=== PATIENT | female | born 1940 | race Caucasian/White ===

== ENCOUNTER 2019-01-11 03:23 | Observation (INO) | payer MEDICARE, OTHER ==
--- NOTE | 2019-01-11 03:50 | ED ---
Female Urogenital HPI - General Chief complaint: Urogenital Stated complaint: Poss UTI Time Seen by Provider: 01/11/19 03:49 Source: patient, family Mode of arrival: wheelchair - History of Present Illness Initial comments: Astrid is a pleasant 78-year-old female presents to the emergency department this morning for evaluation of dysuria, urinary frequency, diarrhea and fever. Patient reports that throughout the day yesterday she had multiple loose stools, she also reports urinary frequency hesitancy and dysuria. Patient reports is similar to previous UTI. Patient also noted that she feels like she has a fever. Patient does have some Parkinson's and some memory impairment she can't recall if she took any antipyretics throughout the day yesterday but hasn't had any throughout the night tonight. Patient reports she feels nauseated but isn't having any vomiting. MD Complaint: dysuria -: days(s) Radiation: suprapubic Severity: mild, moderate Quality: burning Consistency: constant Worsens with: urination Patient : No Associated Symptoms: nausea/vomiting, fever/chills, dysuria - Related Data Home Medications Medication Instructions Recorded Confirmed Carbidopa-Levodopa ER 25-100Mg 1 tab PO QID 01/11/19 01/11/19 [Sinemet CR 25-100 mg] Omeprazole [PriLOSEC] 20 mg PO BID 01/11/19 01/11/19 Oxybutynin Chloride 5 mg PO HS 01/11/19 01/11/19 Warfarin Sodium 2.5 mg PO DIRECTED 01/11/19 01/11/19 Warfarin Sodium 2.5 mg PO DIRECTED 01/11/19 01/11/19 Allergies Allergy/AdvReac Type Severity Reaction Status Date / Time Penicillins Allergy Anaphylaxis Verified 01/11/19 03:40 Review of Systems ROS Statement: Those systems with pertinent positive or pertinent negative responses have been documented in the HPI. ROS Other: All systems not noted in ROS Statement are negative. Past Medical History Past Medical History: Asthma, Deep Vein Thrombosis (DVT), Hypertension, Osteoarthritis (OA) History of Any Multi-Drug Resistant Organisms: None Reported Past Surgical History: Cholecystectomy, Hysterectomy, Tubal Ligation Past Psychological History: No Psychological Hx Reported Smoking Status: Never smoker Past Alcohol Use History: None Reported Past Drug Use History: None Reported General Exam - General Exam Comments Initial Comments: Physical Exam GENERAL: Patient is well-developed and well-nourished. Patient is nontoxic and well-hydrated and is in no distress. HENT: Normocephalic, Atraumatic. EYES: PERRL, EOMI PULMONARY: Unlabored respirations CARDIOVASCULAR: RRR ABDOMEN: Suprapubic tenderness SKIN: Warm to touch : Deferred NEUROLOGIC: Alert and oriented to person and place, confused on date, confused about events of the day MUSCULOSKELETAL: Lower extremity edema, non-pitting PSYCHIATRIC: Pleasantly confused Course Vital Signs 01/11/19 03:31 Temperature 100.5 F H Pulse Rate 83 Respiratory 18 Rate Blood Pressure 138/71 O2 Sat by Pulse 93 L Oximetry Medical Decision Making - Medical Decision Making The patient was seen and evaluated history was obtained from the patient and daughter bedside Elderly female with lower urinary tract symptoms and fever, labs and IV fluids as well as antipyretics were ordered UA consistent with urinary tract infection CBC with mild leukocytosis no other significant abnormalities Patient was assisted to bedside commode however was very weak and was returned to bed and placed on a bedpan. Patient continued complaining of urge to urinate but was too weak to inability to bedside commode. Given the patient's weakness, elderly debilitated state and urinary tract infection I don't feel she is safe for discharge home. Patient will be placed in observation received IV fluids and reevaluation until she has strong enough to be discharged home. - Lab Data Result diagrams: 01/11/19 04:50 01/11/19 04:50 Lab Results 01/11/19 01/11/19 01/11/19 Range/Units 04:03 04:50 04:50 WBC 8.3 (3.8-10.6) k/uL RBC 4.31 (3.80-5.40) m/uL Hgb 12.5 (11.4-16.0) gm/dL Hct 37.0 (34.0-46.0) % MCV 85.8 (80.0-100.0) fL MCH 29.0 (25.0-35.0) pg MCHC 33.9 (31.0-37.0) g/dL RDW 14.4 (11.5-15.5) % Plt Count 184 (150-450) k/uL Neutrophils % 78 % Lymphocytes % 10 % Monocytes % 8 % Eosinophils % 1 % Basophils % 0 % Neutrophils # 6.4 (1.3-7.7) k/uL Lymphocytes # 0.9 L (1.0-4.8) k/uL Monocytes # 0.6 (0-1.0) k/uL Eosinophils # 0.1 (0-0.7) k/uL Basophils # 0.0 (0-0.2) k/uL Sodium 133 L (137-145) mmol/L Potassium 4.0 (3.5-5.1) mmol/L Chloride 101 (98-107) mmol/L Carbon Dioxide 22 (22-30) mmol/L Anion Gap 10 mmol/L BUN 15 (7-17) mg/dL Creatinine 0.59 (0.52-1.04) mg/dL Est GFR (CKD-EPI)AfAm >90 (>60 ml/min/1.73 sqM) Est GFR (CKD-EPI)NonAf 88 (>60 ml/min/1.73 sqM) Glucose 112 H (74-99) mg/dL Plasma Lactic Acid Abdiaziz (0.7-2.0) mmol/L Calcium 8.2 L (8.4-10.2) mg/dL Magnesium 1.9 (1.6-2.3) mg/dL Total Bilirubin 1.1 (0.2-1.3) mg/dL AST 22 (14-36) U/L ALT 14 (9-52) U/L Alkaline Phosphatase 57 (38-126) U/L Total Protein 6.6 (6.3-8.2) g/dL Albumin 3.8 (3.5-5.0) g/dL Urine Color Yellow Urine Appearance Cloudy H (Clear) Urine pH 6.0 (5.0-8.0) Ur Specific [place] 1.014 (1.001-1.035) Urine Protein 1+ H (Negative) Urine Glucose (UA) Negative (Negative) Urine Ketones Negative (Negative) Urine Blood Small H (Negative) Urine Nitrite Positive H (Negative) Urine Bilirubin Negative (Negative) Urine Urobilinogen <2.0 (<2.0) mg/dL Ur Leukocyte Esterase Large H (Negative) Urine RBC 13 H (0-5) /hpf Urine WBC >182 H (0-5) /hpf Urine WBC Clumps Many H (None) /hpf Ur Squamous Epith Cells 3 (0-4) /hpf Urine Bacteria Many H (None) /hpf Urine Mucus Rare H (None) /hpf 01/11/19 Range/Units 04:50 WBC (3.8-10.6) k/uL RBC (3.80-5.40) m/uL Hgb (11.4-16.0) gm/dL Hct (34.0-46.0) % MCV (80.0-100.0) fL MCH (25.0-35.0) pg MCHC (31.0-37.0) g/dL RDW (11.5-15.5) % Plt Count (150-450) k/uL Neutrophils % % Lymphocytes % % Monocytes % % Eosinophils % % Basophils % % Neutrophils # (1.3-7.7) k/uL Lymphocytes # (1.0-4.8) k/uL Monocytes # (0-1.0) k/uL Eosinophils # (0-0.7) k/uL Basophils # (0-0.2) k/uL Sodium (137-145) mmol/L Potassium (3.5-5.1) mmol/L Chloride (98-107) mmol/L Carbon Dioxide (22-30) mmol/L Anion Gap mmol/L BUN (7-17) mg/dL Creatinine (0.52-1.04) mg/dL Est GFR (CKD-EPI)AfAm (>60 ml/min/1.73 sqM) Est GFR (CKD-EPI)NonAf (>60 ml/min/1.73 sqM) Glucose (74-99) mg/dL Plasma Lactic Acid Abdiaziz 0.8 (0.7-2.0) mmol/L Calcium (8.4-10.2) mg/dL Magnesium (1.6-2.3) mg/dL Total Bilirubin (0.2-1.3) mg/dL AST (14-36) U/L ALT (9-52) U/L Alkaline Phosphatase (38-126) U/L Total Protein (6.3-8.2) g/dL Albumin (3.5-5.0) g/dL Urine Color Urine Appearance (Clear) Urine pH (5.0-8.0) Ur Specific [place] (1.001-1.035) Urine Protein (Negative) Urine Glucose (UA) (Negative) Urine Ketones (Negative) Urine Blood (Negative) Urine Nitrite (Negative) Urine Bilirubin (Negative) Urine Urobilinogen (<2.0) mg/dL Ur Leukocyte Esterase (Negative) Urine RBC (0-5) /hpf Urine WBC (0-5) /hpf Urine WBC Clumps (None) /hpf Ur Squamous Epith Cells (0-4) /hpf Urine Bacteria (None) /hpf Urine Mucus (None) /hpf Disposition Clinical Impression: Urinary tract infection, Weakness Disposition: ADMITTED IP TO THIS HOSP Condition: Stable Referrals: Angel Benitez DO [Primary Care Provider] - 1-2 days
[2019-01-11] MEDS ORDERED: ACETAMINOPHEN TAB 500 MG TAB PO STA (04:14)
[2019-01-11 04:25] LABS: Appearance,Urine Cloudy (Clear); Bacteria,Urine Many /hpf; Bilirubin,Urine Negative (Negative); Blood,Urine Small (Negative); Color,Urine Yellow; Glucose,Urine (UA) Negative (Negative); Ketones,Urine Negative (Negative); Leukocyte Esterase,Urine Large (Negative); Mucus,Urine Rare /hpf; Nitrite,Urine Positive (Negative); Protein,Urine 1+ (Negative); RBC,Urine 13 /hpf (0-5); Specific Gravity,Urine 1.014 (1.001-1.035); Squamous Epithelial Cell,Urine 3 /hpf (0-4); Urobilinogen,Urine <2.0 mg/dL (<2.0)
[2019-01-11] MEDS ORDERED: cefTRIAXone IN SWFI 1,000 MG/10 ML SYRINGE IVP STA (04:48)
[2019-01-11] MEDS ORDERED: LEVOFLOXACIN 750MG-D5W PMX 750 MG in DEXTROSE/WATER 1 150ML.BAG IVPB STA (04:49)
[2019-01-11 04:58] LABS: Basophils % (A) 0 %; Eosinophils # (A) 0.1 k/uL (0-0.7); Eosinophils % (A) 1 %; HGB 12.5 gm/dL (11.4-16.0); Lymphocytes # (A) 0.9 k/uL (1.0-4.8); Lymphocytes % (A) 10 %; MCHC 33.9 g/dL (31.0-37.0); MCV 85.8 fL (80.0-100.0); Mean Platelet Volume 7.3; Monocytes # (A) 0.6 k/uL (0-1.0); Monocytes % (A) 8 %; Neutrophils # (A) 6.4 k/uL (1.3-7.7); Neutrophils % (A) 78 %; Platelet Count 184 k/uL (150-450); RBC 4.31 m/uL (3.80-5.40); RDW 14.4 % (11.5-15.5); WBC 8.3 k/uL (3.8-10.6)
[2019-01-11 05:11] LABS: African American GFR (CKD) >90 (>60 ml/min/1.73 sqM); Albumin 3.8 g/dL (3.5-5.0); Anion Gap 10 mmol/L; Calcium 8.2 mg/dL (8.4-10.2); Carbon Dioxide 22 mmol/L (22-30); Chloride 101 mmol/L (98-107); Glucose 112 mg/dL (74-99); Magnesium 1.9 mg/dL (1.6-2.3); Sodium 133 mmol/L (137-145); Total Bilirubin 1.1 mg/dL (0.2-1.3); Total Protein 6.6 g/dL (6.3-8.2)
[2019-01-11 05:13] LABS: ALT 14 U/L (9-52); AST 22 U/L (14-36); Alkaline Phosphatase 57 U/L (38-126); Blood Urea Nitrogen 15 mg/dL (7-17)
[2019-01-11] MEDS: SODIUM CHLORIDE 0.9% 500 ML 500 ML IV SCH ×2 (05:19→06:32)
[2019-01-11] MEDS ORDERED: KETOROLAC 30 MG/ML 1 ML VIAL IVP STA (05:43)
[2019-01-11] MEDS ORDERED: NALOXONE 0.4 MG/ML 1 ML VIAL IV PRN (06:07)
[2019-01-11] MEDS: CARBIDOPA-LEVODOPA ER 25-100MG 1 EACH TABLET.ER PO SCH ×4 (10:02→22:07)
[2019-01-11] MEDS: PANTOPRAZOLE 40 MG TABLET PO SCH ×2 (10:03→18:27)
[2019-01-11 10:04] VITALS: BMI 34.4
[2019-01-11] MEDS ORDERED: WARFARIN 2.5 MG TAB PO SCH (10:30)
[2019-01-11 11:05] LABS: INR 1.4 (<1.2); Prothrombin Time 14.3 sec (9.0-12.0)
[2019-01-11] MEDS: ACETAMINOPHEN TAB 325 MG TAB PO PRN (14:19)
[2019-01-11] MEDS ORDERED: WARFARIN 2.5 MG TAB PO ONE (18:00)
[2019-01-11] MEDS ORDERED: OXYBUTYNIN CHLORIDE 5 MG TAB PO SCH (21:00)
[2019-01-11] MEDS: OXYBUTYNIN 15 MG TAB.ER.24 PO SCH (21:36)
[2019-01-11] MEDS: KETOROLAC 30 MG/ML 1 ML VIAL IVP SCH (23:55)
[2019-01-11] MEDS: LACTATED RINGERS 1,000 ML IV SCH (23:57)
--- NOTE | 2019-01-12 05:07 | HP ---
HISTORY AND PHYSICAL DATE OF ADMISSION: 01/11/2019 DATE OF SERVICE: 01/11/2019 PRESENTING COMPLAINT: Burning in the urine. HISTORY OF PRESENTING COMPLAINT: This is a very pleasant 78-year-old patient who follows with Dr. Benitez. The patient lives with her daughter. Chronic stable medical conditions include asthma, GERD, hypertension, osteoarthritis, diverticulitis, Parkinson disease that she has had for quite a while and arthritis. The patient has had prior UTIs. Patient started off with urinary frequency, dysuria, fever, chills, decreased appetite, run down, and also ended up with her Parkinson's flaring up. She finding it difficult to get about and decided to present to the ER, found to have a roaring UTI and did get a dose of antibiotic in the ER, getting IV fluids, admitted for the same. REVIEW OF SYSTEMS: CONSTITUTIONAL: Febrile, weak and tired. HEENT: None. RESPIRATORY: None. CARDIOVASCULAR: None. GASTROINTESTINAL: Heartburn. GENITOURINARY: As above. MUSCULOSKELETAL: Arthritic pain in joints. DERMATOLOGIC: None. HEMATOLOGIC: None. LYMPHATIC: None. PSYCHIATRY: None. NEUROLOGICAL: Does use a walker, tremors. PAST MEDICAL HISTORY: Past medical history of asthma, questionable TIA, DVT, GERD, hypertension, some memory impairment, osteoarthritis, ulcerative colitis, diverticulitis, Parkinson disease, stroke showed up on a CAT scan not aware of, several DVTs both her legs, thrombophlebitis, arthritis, urinary incontinence. PAST SURGICAL HISTORY: Cholecystectomy, hysterectomy, tubal ligation, left shoulder injury with surgery to repair, removal of DVTs both the legs, cataracts removed. SOCIAL HISTORY: Lives with daughter. Does have a walker. No smoking. No alcohol. FAMILY HISTORY: Family history of asthma, COPD, gallbladder cancer. HOME MEDICATIONS: 1. Prilosec 20 mg b.i.d. 2. Sinemet CR 25/100 one tablet p.o. q.i.d. 3. Coumadin 2.5 mg on Friday, Friday, , Friday and 1.25 mg on Friday, Friday and Friday. 4. Ditropan XL 15 mg q.h.s. 5. Vitamin D3. ALLERGIES: Allergy to PENICILLIN. PHYSICAL EXAMINATION: On examination, temperature 100.5, pulse 83, respiratory 18, blood pressure 138/71, pulse ox 93% on room air. GENERAL APPEARANCE: Well built, BMI 34.4, lying in bed, tired appearing. EYES: Pupils equal. Conjunctivae normal. HENT: External appearance of nose and ears normal. Oral cavity normal. NECK: JVD not raised. Mass not palpable. RESPIRATORY: Effort normal. LUNGS: Are clear. CARDIOVASCULAR: First and second sounds normal. No edema. ABDOMEN: Soft, nontender. Liver and spleen not palpable. LYMPHATIC: No lymph nodes palpable in the neck and axilla. PSYCHIATRY: Alert and oriented x3. Mood and affect normal. NEUROLOGICAL: Pupils equal. Cranial nerves grossly intact. Power and sensation grossly intact. MUSCULOSKELETAL: Evidence of osteoarthritis especially in the hands and knees. NEUROLOGICAL: Tremors are present. Bradykinesia. INVESTIGATION: White count 8.3. INR 1.4. Potassium 4.0. BUN 15, creatinine 0.59. UA positive for leukocyte esterase, WBC. ASSESSMENT: 1. Acute severe urinary tract infection with cystitis. 2. Obesity; body mass index 34.4. 3. Chronic deep venous thrombosis for which patient is chronically on Coumadin. 4. Coumadin monitoring. 5. Gastroesophageal reflux disease. 6. Essential hypertension. 7. Mild cognitive impairment probably from underlying Alzheimer's. 8. Primary osteoarthritis. 9. Idiopathic Parkinson disease. 10.Chronic urinary incontinence. PLAN: Home medications are resumed. Patient is put back on Coumadin. Will give patient IV ceftriaxone. Encourage patient to be out of bed. Also give patient IV fluids. Repeat labs in the morning. Care was discussed with the patient. MMODL / IJN: [id number] /
[2019-01-12] MEDS: KETOROLAC 30 MG/ML 1 ML VIAL IVP SCH ×4 (05:48→23:25)
[2019-01-12 08:13] LABS: INR 1.8 (<1.2); Prothrombin Time 17.7 sec (9.0-12.0)
[2019-01-12] MEDS: ACETAMINOPHEN TAB 325 MG TAB PO PRN (09:41)
[2019-01-12] MEDS: CARBIDOPA-LEVODOPA ER 25-100MG 1 EACH TABLET.ER PO SCH ×4 (09:41→20:30)
[2019-01-12] MEDS: PANTOPRAZOLE 40 MG TABLET PO SCH ×2 (09:42→17:30)
[2019-01-12] MEDS ORDERED: WARFARIN 2.5 MG TAB PO SCH (10:20)
[2019-01-12] MEDS: LACTATED RINGERS 1,000 ML IV SCH (16:54)
[2019-01-12] MEDS ORDERED: WARFARIN 2.5 MG TAB PO ONE (18:00)
[2019-01-12] MEDS: OXYBUTYNIN 15 MG TAB.ER.24 PO SCH (20:30)
[2019-01-13] MEDS: LACTATED RINGERS 1,000 ML IV SCH ×2 (01:56→12:06)
[2019-01-13] MEDS: KETOROLAC 30 MG/ML 1 ML VIAL IVP SCH ×2 (05:05→11:17)
--- NOTE | 2019-01-13 06:56 | PN ---
PROGRESS NOTE DATE OF SERVICE: 01/12/2019 PRESENTING COMPLAINT: Urinary frequency. INTERVAL HISTORY: This patient has Parkinson disease, presented with acute urinary tract infection with cystitis. Symptoms are a bit better today. No frequency is present. Did tolerate some diet. Less tired. Cultures are pending. REVIEW OF SYSTEMS: Done for constitutional, cardiovascular, GI, pulmonary, relevant findings as above. CURRENT MEDICATIONS: Reviewed include and IV ceftriaxone, IV fluids. PHYSICAL EXAMINATION: VITAL SIGNS: Afebrile. Pulse 62, respiration 20, blood pressure 138/70, pulse ox 95% on room air. GENERAL APPEARANCE: Sitting up. Awake. EYES: Pupils equal. Conjunctivae normal. NECK: JVD not raised. Mass not palpable. RESPIRATORY: Effort normal. LUNGS are clear. CARDIOVASCULAR: First and second sounds normal. No edema. ABDOMEN: Soft, nontender. Liver and spleen not palpable. PSYCHIATRY: Awake, answering questions. INVESTIGATIONS: INR 1.8. Urine cultures gram-negative bacilli ASSESSMENT: 1. Acute severe urinary tract infection with cystitis from gram-negative bacilli, cultures pending. 2. Obesity; BMI 34.4. 3. Chronic deep vein thrombosis for which patient is chronically on Coumadin. 4. Coumadin monitoring. 5. Gastroesophageal reflux disease. 6. Essential hypertension. 7. Mild cognitive impairment probably from underlying dementia. 8. Primary osteoarthritis. 9. Idiopathic Parkinson disease. 10.Chronic urine incontinence. PLAN: Continue current medication and treatment plan. Care was discussed with patient's daughter at the bedside. Await culture results. MMODL / IJN: [id number] /
[2019-01-13] MEDS: CARBIDOPA-LEVODOPA ER 25-100MG 1 EACH TABLET.ER PO SCH ×2 (08:14→12:02)
[2019-01-13] MEDS: PANTOPRAZOLE 40 MG TABLET PO SCH (08:14)
[2019-01-13 11:44] LABS: African American GFR (CKD) >90 (>60 ml/min/1.73 sqM); Anion Gap 8 mmol/L; Blood Urea Nitrogen 15 mg/dL (7-17); Calcium 8.4 mg/dL (8.4-10.2); Carbon Dioxide 24 mmol/L (22-30); Chloride 102 mmol/L (98-107); Glucose 98 mg/dL (74-99); Potassium 4.1 mmol/L (3.5-5.1); Sodium 134 mmol/L (137-145)
[2019-01-13 11:45] LABS: INR 1.7 (<1.2); Prothrombin Time 17.3 sec (9.0-12.0)
[2019-01-13 11:49] LABS: Basophils % (A) 1 %; Eosinophils # (A) 0.2 k/uL (0-0.7); Eosinophils % (A) 2 %; HCT 33.8 % (34.0-46.0); HGB 11.4 gm/dL (11.4-16.0); Lymphocytes # (A) 1.2 k/uL (1.0-4.8); Lymphocytes % (A) 17 %; MCH 29.5 pg (25.0-35.0); MCHC 33.7 g/dL (31.0-37.0); MCV 87.4 fL (80.0-100.0); Mean Platelet Volume 7.3; Monocytes # (A) 0.5 k/uL (0-1.0); Monocytes % (A) 7 %; Neutrophils # (A) 5.2 k/uL (1.3-7.7); Neutrophils % (A) 71 %; Platelet Count 224 k/uL (150-450); RBC 3.86 m/uL (3.80-5.40); WBC 7.3 k/uL (3.8-10.6)
[2019-01-13 13:54] VITALS: BP 170/82; PULSE 62; RESP 18; TEMP 97.9
[2019-01-13] MEDS ORDERED: WARFARIN 3 MG TAB PO ONE (18:00)
--- NOTE | 2019-01-14 15:16 | DS ---
DISCHARGE SUMMARY DATE OF ADMISSION: 01/11/2019 DATE OF DISCHARGE: 01/13/2019 FINAL DIAGNOSES: 1. Acute severe urinary tract infection from cystitis secondary to Escherichia coli. 2. Obesity; BMI 34.4. 3. Chronic deep venous thrombosis for which patient is chronically on Coumadin. 4. Coumadin monitoring. 5. Gastroesophageal reflux disease. 6. Essential hypertension. 7. Mild cognitive impairment probably from underlying dementia. 8. Primary osteoarthritis. 9. Idiopathic Parkinson disease. 10.Chronic urinary incontinence. HOSPITAL COURSE: This pleasant lady presented to the ER, weak, tired, run down, found to have underlying urinary tract infection with cystitis. Cultures were positive as above. Treated with ceftriaxone. Doing much better the time of discharge. Care was discussed with the patient and daughter. Questions were answered. EXAMINATION: Afebrile, pulse 52, respiratory 18, blood pressure 152/75, pulse ox 93 percent on room air. LUNGS: Clear. ABDOMEN: Soft, nontender. INVESTIGATIONS: White count 7.3, INR 1.7, potassium 4.1. BUN and creatinine normal. Urine culture, E coli. DISCHARGE MEDICATIONS: 1. Sinemet CR 25/200 one tablet p.o. q.i.d. 2. Vitamin D3. 3. Prilosec 20 mg b.i.d. 4. Ditropan XL 50 mg q.h.s. 5. Coumadin 1.25 mg Friday, Friday, Friday and 2.5 mg on Friday, Friday, , Friday. 6. Keflex 250 mg q.6. 7. Requip 0.5 mg p.o. q.h.s. The patient does follow with Dr. Gastelum and she is supposed to follow up with him for her incontinence. Follow up with Dr. Benitez 01/29/2019. MMODL / IJN: [id number] /
== END 2019-01-13 14:06 | disposition home health service (06) ==
LOC: EC 03:23 → 4MS4W 06:09 → 6PED 14:55 → 4MS4W 01-12 16:41
PROVIDERS: ADMIT Hospitalist; ATTEND Hospitalist
DX: N30.90 Cystitis, unspecified without hematuria (principal); B96.20 Unspecified Escherichia coli [E. coli] as the cause of diseases classified elsewhere; E66.9 Obesity, unspecified; Z68.34 Body mass index [BMI] 34.0-34.9, adult; K21.9 Gastro-esophageal reflux disease without esophagitis; I10 Essential (primary) hypertension; G20 Parkinson's disease; F02.80 Dementia in other diseases classified elsewhere, unspecified severity, without behavioral disturbance, psychotic disturbance, mood disturbance, and anxiety; R19.7 Diarrhea, unspecified; M19.042 Primary osteoarthritis, left hand; M19.041 Primary osteoarthritis, right hand; M17.0 Bilateral primary osteoarthritis of knee; I82.509 Chronic embolism and thrombosis of unspecified deep veins of unspecified lower extremity; Z79.01 Long term (current) use of anticoagulants; Z79.899 Other long term (current) drug therapy; Z88.0 Allergy status to penicillin; Z90.49 Acquired absence of other specified parts of digestive tract; Z87.440 Personal history of urinary (tract) infections; Z86.73 Personal history of transient ischemic attack (TIA), and cerebral infarction without residual deficits; Z82.5 Family history of asthma and other chronic lower respiratory diseases; Z80.0 Family history of malignant neoplasm of digestive organs
CPT/HCPCS: 96376 ×3; 96361 ×2; 96366; 96367; 96365; 96375; 99284; 36415; 80053; 80048; 83605; 83735; 85025 ×2; 85610 ×3; 81001; 87040; 87086; 87077; 87186; G0378 ×3; J0696 ×2; J1885 ×3; J1956

== ENCOUNTER 2019-01-21 10:56 | Inpatient (IN) | payer MEDICARE, OTHER ==
--- NOTE | 2019-01-21 11:36 | ED ---
Extremity Problem HPI - General Source: patient Mode of arrival: wheelchair Limitations: no limitations <Ly Low - Last Filed: 01/21/19 15:34> <Teo El - Last Filed: 01/21/19 16:07> - General Chief complaint: Extremity Problem,Nontraumatic Stated complaint: Fluid retention/Lethargy Time Seen by Provider: 01/21/19 11:06 - History of Present Illness Initial comments: 78-year-old female with history of previous CVA, deep venous thrombosis on warfarin presented for chief complaint of bilateral lower extremity swelling. Patient states she was recently hospitalized about 2 weeks prior for a urinary t ract infection. She states at that time she had a fever and had increased urination. Patient states that the symptoms have subsided and she feels that this is resolved. Patient states at that shortly after discharge she began noticing increasing bilateral lower extremity swelling. She states over the past 2-3 days the swelling has increased significantly. She states her legs feel heavy and making it difficult to walk. Patient denies any pain. Patient denies any redness or erythema the lower extremities. Patient denies any fever. Patient states she has had some increasing shortness of breath for the past 2-3 days with ambulation. She denies shortness of breath at rest or chest pain. Patient denies any upper back pain nausea or abdominal pain. Patient denies any headache or dizziness. Remaining review of systems negative upon arrival patient vital signs within acceptable limits. No signs of acute distress. Obvious bilateral lower extremity edema. (Ly Low) - Related Data Home Medications Medication Instructions Recorded Confirmed Carbidopa-Levodopa ER 25-100Mg 1 tab PO QID 01/11/19 01/21/19 [Sinemet CR 25-100 mg] Cholecalciferol (Vitamin D3) 2,000 units PO DAILY 01/11/19 01/21/19 [Vitamin D3] Omeprazole [PriLOSEC] 20 mg PO BID 01/11/19 01/21/19 Oxybutynin ER [Ditropan Xl] 15 mg PO HS 01/11/19 01/21/19 Warfarin Sodium 1.25 mg PO MOWEFR@1600 01/11/19 01/21/19 Warfarin Sodium 2.5 mg PO SUTUTHSA@1600 01/11/19 01/21/19 Allergies Allergy/AdvReac Type Severity Reaction Status Date / Time Penicillins Allergy Anaphylaxis Verified 01/21/19 12:24 Review of Systems ROS Other: All systems not noted in ROS Statement are negative. <Ly Low - Last Filed: 01/21/19 15:34> ROS Other: All systems not noted in ROS Statement are negative. <Teo El - Last Filed: 01/21/19 16:07> ROS Statement: Those systems with pertinent positive or pertinent negative responses have been documented in the HPI. Past Medical History Past Medical History: Asthma, CVA/TIA, Deep Vein Thrombosis (DVT), GERD/Reflux, Hypertension, Memory Impairment, Musculoskeletal Disorder, Neurologic Disorder, Osteoarthritis (OA) Additional Past Medical History / Comment(s): Ulcerative colitis, diverticulitis, parkinson's disease, CVA which pt was unaware of having-showed on cat scan, several DVTs bilateral legs and pt states since she has had intermittent bilateral ankle edema, thrombophlebitis, PE-pt cannot recall laterallity, generalized arthritis, urinaty leakage, a few UTIs. History of Any Multi-Drug Resistant Organisms: None Reported Past Surgical History: Cholecystectomy, Hysterectomy, Orthopedic Surgery, Tubal Ligation Additional Past Surgical History / Comment(s): L shoulder injury with surgery to repair, removals of DVTs bilateral legs, cataract removal/lens implants, colonoscopies. Past Anesthesia/Blood Transfusion Reactions: Postoperative Nausea & Vomiting (PONV) Additional Past Anesthesia/Blood Transfusion Reaction / Comment(s): Pt received blood with hysterectomy without reaction. Past Psychological History: No Psychological Hx Reported Smoking Status: Never smoker Past Alcohol Use History: None Reported Past Drug Use History: None Reported - Past Family History Father Family Medical History: Asthma, Cancer, COPD Additional Family Medical History / Comment(s): Gallbladder cancer Mother Family Medical History: Myocardial Infarction (NV) Additional Family Medical History / Comment(s): Mother of a NV at the age of 48 yrs. Sister(s) Additional Family Medical History / Comment(s): Sister of a blood clot at age 38 yrs-pt cannot recall specifics. <Ly Low - Last Filed: 01/21/19 15:34> General Exam Limitations: no limitations <Ly Low - Last Filed: 01/21/19 15:34> Course <Teo El - Last Filed: 01/21/19 16:07> Vital Signs 01/21/19 01/21/19 01/21/19 11:01 12:21 13:01 Temperature 98.2 F Pulse Rate 72 69 75 Respiratory 16 16 18 Rate Blood Pressure 166/83 136/59 156/83 O2 Sat by Pulse 95 98 95 Oximetry - Reevaluation(s) Reevaluation #1: 01/21/19 16:06 PA supervision: I proceeded [id number] evaluation patient did discuss findings with her and the family members. She has edema cannot ably. I did discuss the case with Dr. Levy the patient will be admitted (Teo lE) Medical Decision Making - Lab Data Result diagrams: 01/21/19 11:55 01/21/19 11:55 <Ly Low - Last Filed: 01/21/19 15:34> - Lab Data Result diagrams: 01/21/19 11:55 01/21/19 11:55 <Teo El - Last Filed: 01/21/19 16:07> - Lab Data Lab Results 01/21/19 01/21/19 01/21/19 Range/Units 11:50 11:55 11:55 WBC 7.7 (3.8-10.6) k/uL RBC 4.30 (3.80-5.40) m/uL Hgb 12.5 (11.4-16.0) gm/dL Hct 36.9 (34.0-46.0) % MCV 85.9 (80.0-100.0) fL MCH 29.2 (25.0-35.0) pg MCHC 34.0 (31.0-37.0) g/dL RDW 14.1 (11.5-15.5) % Plt Count 340 (150-450) k/uL Neutrophils % 72 % Lymphocytes % 21 % Monocytes % 4 % Eosinophils % 1 % Basophils % 1 % Neutrophils # 5.5 (1.3-7.7) k/uL Lymphocytes # 1.6 (1.0-4.8) k/uL Monocytes # 0.3 (0-1.0) k/uL Eosinophils # 0.1 (0-0.7) k/uL Basophils # 0.1 (0-0.2) k/uL PT (9.0-12.0) sec INR (<1.2) APTT (22.0-30.0) sec Sodium 135 L (137-145) mmol/L Potassium 4.2 (3.5-5.1) mmol/L Chloride 101 (98-107) mmol/L Carbon Dioxide 28 (22-30) mmol/L Anion Gap 6 mmol/L BUN 13 (7-17) mg/dL Creatinine 0.65 (0.52-1.04) mg/dL Est GFR (CKD-EPI)AfAm >90 (>60 ml/min/1.73 sqM) Est GFR (CKD-EPI)NonAf 86 (>60 ml/min/1.73 sqM) Glucose 97 (74-99) mg/dL Calcium 9.1 (8.4-10.2) mg/dL Total Bilirubin 0.7 (0.2-1.3) mg/dL AST 18 (14-36) U/L ALT 9 (9-52) U/L Alkaline Phosphatase 59 (38-126) U/L Troponin I (0.000-0.034) ng/mL NT-Pro-B Natriuret Pep pg/mL Total Protein 6.7 (6.3-8.2) g/dL Albumin 3.8 (3.5-5.0) g/dL Urine Color Yellow Urine Appearance Clear (Clear) Urine pH 7.0 (5.0-8.0) Ur Specific [place] 1.013 (1.001-1.035) Urine Protein Negative (Negative) Urine Glucose (UA) Negative (Negative) Urine Ketones Negative (Negative) Urine Blood Negative (Negative) Urine Nitrite Negative (Negative) Urine Bilirubin Negative (Negative) Urine Urobilinogen <2.0 (<2.0) mg/dL Ur Leukocyte Esterase Negative (Negative) 01/21/19 01/21/19 01/21/19 Range/Units 11:55 11:55 11:55 WBC (3.8-10.6) k/uL RBC (3.80-5.40) m/uL Hgb (11.4-16.0) gm/dL Hct (34.0-46.0) % MCV (80.0-100.0) fL MCH (25.0-35.0) pg MCHC (31.0-37.0) g/dL RDW (11.5-15.5) % Plt Count (150-450) k/uL Neutrophils % % Lymphocytes % % Monocytes % % Eosinophils % % Basophils % % Neutrophils # (1.3-7.7) k/uL Lymphocytes # (1.0-4.8) k/uL Monocytes # (0-1.0) k/uL Eosinophils # (0-0.7) k/uL Basophils # (0-0.2) k/uL PT 28.7 H (9.0-12.0) sec INR 3.0 H (<1.2) APTT 32.9 H (22.0-30.0) sec Sodium (137-145) mmol/L Potassium (3.5-5.1) mmol/L Chloride (98-107) mmol/L Carbon Dioxide (22-30) mmol/L Anion Gap mmol/L BUN (7-17) mg/dL Creatinine (0.52-1.04) mg/dL Est GFR (CKD-EPI)AfAm (>60 ml/min/1.73 sqM) Est GFR (CKD-EPI)NonAf (>60 ml/min/1.73 sqM) Glucose (74-99) mg/dL Calcium (8.4-10.2) mg/dL Total Bilirubin (0.2-1.3) mg/dL AST (14-36) U/L ALT (9-52) U/L Alkaline Phosphatase (38-126) U/L Troponin I 0.017 (0.000-0.034) ng/mL NT-Pro-B Natriuret Pep 402 pg/mL Total Protein (6.3-8.2) g/dL Albumin (3.5-5.0) g/dL Urine Color Urine Appearance (Clear) Urine pH (5.0-8.0) Ur Specific [place] (1.001-1.035) Urine Protein (Negative) Urine Glucose (UA) (Negative) Urine Ketones (Negative) Urine Blood (Negative) Urine Nitrite (Negative) Urine Bilirubin (Negative) Urine Urobilinogen (<2.0) mg/dL Ur Leukocyte Esterase (Negative) - EKG Data EKG Comments: A 12-lead EKG was performed and shows the following: Rate is 72bpm, and rhythm is normal sinus. There are normal QRS complexes and normal R-wave progression. ST segments have no elevation or depression, and GA segments appear normal. Ekg evaluated by Dr. El. GA interval 148 ms, QRS duration 84 ms, QT/QTC 392/429 ms. (Ly Low) Disposition Is patient prescribed a controlled substance at d/c from ED?: No Time of Disposition: 15:35 Decision to Admit Reason: Admit from EC Decision Date: 01/21/19 Decision Time: 15:35 <Ly Low - Last Filed: 01/21/19 15:34> <Teo El - Last Filed: 01/21/19 16:07> Clinical Impression: Failure to thrive, Unable to ambulate, Leg swelling, Shortness of breath Disposition: ADMITTED IP TO THIS HOSP Condition: Stable
[2019-01-21 12:13] LABS: Basophils # (A) 0.1 k/uL (0-0.2); Basophils % (A) 1 %; Eosinophils # (A) 0.1 k/uL (0-0.7); Eosinophils % (A) 1 %; HCT 36.9 % (34.0-46.0); HGB 12.5 gm/dL (11.4-16.0); Lymphocytes # (A) 1.6 k/uL (1.0-4.8); Lymphocytes % (A) 21 %; MCH 29.2 pg (25.0-35.0); MCV 85.9 fL (80.0-100.0); Mean Platelet Volume 6.7; Monocytes # (A) 0.3 k/uL (0-1.0); Monocytes % (A) 4 %; Neutrophils # (A) 5.5 k/uL (1.3-7.7); Neutrophils % (A) 72 %; Platelet Count 340 k/uL (150-450); RDW 14.1 % (11.5-15.5); WBC 7.7 k/uL (3.8-10.6)
[2019-01-21 12:25] LABS: Appearance,Urine Clear (Clear); Bilirubin,Urine Negative (Negative); Blood,Urine Negative (Negative); Color,Urine Yellow; Glucose,Urine (UA) Negative (Negative); Ketones,Urine Negative (Negative); Leukocyte Esterase,Urine Negative (Negative); Nitrite,Urine Negative (Negative); Protein,Urine Negative (Negative); Specific Gravity,Urine 1.013 (1.001-1.035); Urobilinogen,Urine <2.0 mg/dL (<2.0)
[2019-01-21 12:26] LABS: Prothrombin Time 28.7 sec (9.0-12.0)
[2019-01-21 12:27] LABS: Partial Thromboplastin Time 32.9 sec (22.0-30.0)
[2019-01-21 12:29] LABS: ALT 9 U/L (9-52); AST 18 U/L (14-36); African American GFR (CKD) >90 (>60 ml/min/1.73 sqM); Albumin 3.8 g/dL (3.5-5.0); Alkaline Phosphatase 59 U/L (38-126); Anion Gap 6 mmol/L; Blood Urea Nitrogen 13 mg/dL (7-17); Calcium 9.1 mg/dL (8.4-10.2); Carbon Dioxide 28 mmol/L (22-30); Chloride 101 mmol/L (98-107); Glucose 97 mg/dL (74-99); Potassium 4.2 mmol/L (3.5-5.1); Sodium 135 mmol/L (137-145); Total Bilirubin 0.7 mg/dL (0.2-1.3); Total Protein 6.7 g/dL (6.3-8.2)
--- NOTE | 2019-01-21 12:40 | XR ---
EXAMINATION TYPE: XR chest 2V DATE OF EXAM: 01/21/2019 COMPARISON: None HISTORY: 78-year-old female with pain TECHNIQUE: AP and lateral views FINDINGS: Heart limits of normal in size. Mild diffuse prominence. No ginette consolidation or pleural effusion. IMPRESSION: Borderline heart size. Interstitial prominence could reflect mild pulmonary vascular congestion, bron chitis, or asthma. Clinically correlate. Otherwise, no acute process seen.
[2019-01-21] MEDS ORDERED: ACETAMINOPHEN TAB 325 MG TAB PO STA (12:50)
--- NOTE | 2019-01-21 14:23 | US ---
EXAMINATION TYPE: US venous doppler duplex LE DATE OF EXAM: 01/21/2019 2:02 PM COMPARISON: NONE CLINICAL HISTORY: 78-year-old female per Dr. El, previous b/l DVT, leg swelling. Bilateral leg swel ling. Patient states having a hx of DVT in bilateral legs- last one was about 5 years ago. On blood thinners. No redness. Bilateral leg pain SIDE PERFORMED: Bilateral TECHNIQUE: The lower extremity deep venous system is examined utilizing real time linear array sonog loni with graded compression, doppler sonography and color-flow sonography. FINDINGS: VESSELS IMAGED: External Iliac Vein (EIV) Common Femoral Vein Deep Femoral Vein Greater Saphenous Vein * Femoral Vein Popliteal Vein Small Saphenous Vein *- Left not well visualized Proximal Calf Veins (* superficial vessels) Well Logging Captain notes:Limited exam due to patients position and body habitus Right Leg: Negative for acute DVT Left Leg: Negative for acute DVT IMPRESSION: Technically difficult and limited exam. No acute DVT visualized from the groin to the upper calves in either lower extremity.
[2019-01-21] MEDS ORDERED: NALOXONE 0.4 MG/ML 1 ML VIAL IV PRN (15:25)
[2019-01-21 17:11] VITALS: BMI 34.5
[2019-01-21] MEDS: SODIUM CHLORIDE 0.9% 1,000 ML IV SCH (17:35)
[2019-01-21] MEDS: ACETAMINOPHEN TAB 325 MG TAB PO PRN (18:12)
[2019-01-21] MEDS ORDERED: WARFARIN 2.5 MG TAB PO SCH (18:30)
[2019-01-21] MEDS: CARBIDOPA-LEVODOPA ER 25-100MG 1 EACH TABLET.ER PO SCH ×2 (18:57→21:05)
[2019-01-21] MEDS: OXYBUTYNIN 15 MG TAB.ER.24 PO SCH (20:29)
[2019-01-22] MEDS: ACETAMINOPHEN TAB 325 MG TAB PO PRN ×4 (01:29→19:22)
[2019-01-22] MEDS: CARBIDOPA-LEVODOPA ER 25-100MG 1 EACH TABLET.ER PO SCH ×5 (01:29→21:54)
[2019-01-22] MEDS: CHOLECALCIFEROL 1,000 UNIT TAB PO SCH (07:21)
[2019-01-22] MEDS: PANTOPRAZOLE 40 MG TABLET PO SCH (07:21)
[2019-01-22 07:53] LABS: INR 3.1 (<1.2); Prothrombin Time 29.5 sec (9.0-12.0)
[2019-01-22] MEDS: SODIUM CHLORIDE 0.9% 1,000 ML IV SCH (17:32)
[2019-01-22] MEDS ORDERED: WARFARIN 1.25 MG TAB PO SCH (18:00)
[2019-01-22] MEDS ORDERED: DOCUSATE 100 MG CAP PO SCH (21:00)
--- NOTE | 2019-01-22 21:34 | P.HPIM ---
History of Present Illness H&P Date: 01/22/19 Chief Complaint: Bilateral lower extremity swelling History of presenting complaint: This is a very pleasant 78-year-old patient of Dr. Benitez. Lives with her daughter. Chronic stable medical conditions include asthma good hypertension Ruddy arthritis diverticulitis Parkinson's disease and arthritis. Patient was recently in the hospital and diagnosed with a UTI and cystitis. Patient also got chronic DVT and chronically on Coumadin. And has noted to be swelling. Pat ient is noticed more swelling of the lower extremity. Finding it more difficult to walk. No fever or chills. Finding too difficult to manage at home. With high risk for fall. And she came in. Got a Doppler IN THE ER. NEGATIVE FOR DVT. Review of systems: GEN.: Tired EYES: [None] HEENT: [None] NECK: [None] RESPIRATORY: [None] CARDIOVASCULAR: [None] GASTROINTESTINAL: [Heartburn] GENITOURINARY: [None] MUSCULOSKELETAL: [Pain in the joints] LYMPHATICS: [None] HEMATOLOGICAL: [None] PSYCHIATRY: [None] NEUROLOGICAL: [Uses a walker Past medical history: Chronic DVT for which patient is on Coumadin, GERD, hypertension, mild cognitive impairment, Ruddy arthritis, Parkinson disease, urinary incontinence Social history: This is a daughter. Does have a walker. No smoking or alcohol. Family history: Asthma COPD, bladder cancer Physical examination: VITAL SIGNS: 98.2, 72, 16, 166-83, 95% room air GENERAL: [BMI 34.5, laying in bed, tired appearing,]. EYES: [Pupils equal. Conjunctiva edward]l. HEENT: [External appearance of nose and ears normal, oral cavity grossly normal]. NECK: [JVD not raised; masses not palpable]. HEART: [First and second heart sounds are normal; edema present]. LUNGS:[ Respiratory rate normal; clear to auscultation]. ABDOMEN: [Soft, nontender, liver spleen not palpable, no masses palpable]. LYMPHATICS: [No lymph nodes palpable in the axilla and neck]. PSYCH: [Alert and oriented x3; mood and affect edward]l. NEUROLOGICAL: [Cranial nerves grossly intact; no facial asymmetry, decreased part of the lower extremity that is 4/5 MUSCULOSKELETAL evidence of moist patient in the hands and knees Investigations reviewed in the clinical context: EKG tracing personally reviewed by me shows normal sinus rhythm]. ] Doppler ultrasound of lower extreme D negative for DVT Chest [id number] personally reviewed by me shows some venous prominence and borderline cardiomegaly Assessment: -Possible acute congestive heart failure exacerbation, EF not known -Obesity BMI 34.5 -Chronic DVT for which patient chronically on Coumadin -GERD -Essential hypertension -Mild cognitive impairment from underlying Alzheimer's dementia -Primary Ruddy arthritis -Idiopathic Parkinson's disease -Chronic urinary incontinence -Chronic gait dysfunction uses a walker -Chronic lower extremity swelling from DVT that is from venous insufficiency Plan: We'll put the patient on IV Lasix 40 every 12. We will do a 2-D echocardiogram. Home medications are resumed. Care was discussed with the patient. The daughter the bedside. Questions were answered. We will use Tobias wrap for the lower extremity. Follow electrolytes closely. Past Medical History Past Medical History: Asthma, CVA/TIA, Deep Vein Thrombosis (DVT), GERD/Reflux, Hypertension, Memory Impairment, Musculoskeletal Disorder, Neurologic Disorder, Osteoarthritis (OA) Additional Past Medical History / Comment(s): Ulcerative colitis, divert iculitis, parkinson's disease, CVA which pt was unaware of having-showed on cat scan, several DVTs bilateral legs and pt states since she has had intermittent bilateral ankle edema, thrombophlebitis, PE-pt cannot recall laterallity, generalized arthritis, urinaty leakage, a few UTIs. History of Any Multi-Drug Resistant Organisms: None Reported Past Surgical History: Cholecystectomy, Hysterectomy, Orthopedic Surgery, Tubal Ligation Additional Past Surgical History / Comment(s): L shoulder injury with surgery to repair, removals of DVTs bilateral legs, cataract removal/lens implants, colonoscopies. Past Anesthesia/Blood Transfusion Reactions: Postoperative Nausea & Vomiting (PONV) Additional Past Anesthesia/Blood Transfusion Reaction / Comment(s): Pt received blood with hysterectomy without reaction. Past Psychological History: No Psychological Hx Reported Additional Psychological History / Comment(s): Pt resides with her daughter. She moved here from [place] to live with her steven 3 yrs ago. She ambulates with a walker. She no longer drives, her steven takes her to [employer] She is otherwise independent. Smoking Status: Never smoker Past Alcohol Use History: None Reported Past Drug Use History: None Reported - Past Family History Father Family Medical History: Asthma, Cancer, COPD Additional Family Medical History / Comment(s): Gallbladder cancer Mother Family Medical History: Myocardial Infarction ([place]) Additional Family Medical History / Comment(s): Mother of a [place] at the age of 48 yrs. Sister(s) Additional Family Medical History / Comment(s): Sister of a blood clot at age 38 yrs-pt cannot recall specifics. Medications and Allergies Home Medications Medication Instructions Recorded Confirmed Type Carbidopa-Levodopa ER 25-100Mg 1 tab PO QID 01/11/19 01/21/19 History [Sinemet CR 25-100 mg] Cholecalciferol (Vitamin D3) 2,000 units PO DAILY 01/11/19 01/21/19 History [Vitamin D3] Omeprazole [PriLOSEC] 20 mg PO BID 01/11/19 01/21/19 History Oxybutynin ER [Ditropan Xl] 15 mg PO HS 01/11/19 01/21/19 History Warfarin Sodium 1.25 mg PO MOWEFR@1600 01/11/19 01/21/19 History Warfarin Sodium 2.5 mg PO SUTUTHSA@1600 01/11/19 01/21/19 History Allergies Allergy/AdvReac Type Severity Reaction Status Date / Time Penicillins Allergy Anaphylaxis Verified 01/21/19 12:24 Physical Exam Vitals: Vital Signs Temp Pulse Pulse Resp BP BP Pulse Ox 01/22/19 07:19 97.8 F 70 16 187/76 93 L 01/22/19 00:55 98.0 F 65 18 161/71 92 L 01/21/19 19:20 98.5 F 69 18 181/71 93 L 01/21/19 17:00 99.0 F 79 16 174/72 93 L 01/21/19 16:00 98.3 F 79 18 142/62 99 01/21/19 15:00 82 20 157/82 99 Intake and Output 01/21/19 01/22/19 01/22/19 22:59 06:59 14:59 Intake Total 100 Output Total 400 500 250 Balance -300 -500 -250 Intake: Oral 100 Output: Urine 400 500 250 Other: # Voids 1 1 Results CBC & Chem 7: 01/21/19 11:55 01/21/19 11:55 Labs: Abnormal Lab Results - Last 24 Hours (Table) 01/22/19 Range/Units 07:12 PT 29.5 H (9.0-12.0) sec INR 3.1 H (<1.2) Thrombosis Risk Factor Assmnt - Choose All That Apply Any of the Below Risk Factors Present?: Yes Each Factor Represents 1 point: Obesity (BMI >25), Swollen legs (current) Other Risk Factors: Yes Each Risk Factor Represents 3 Points: History of DVT/PE Other congenital or acquired thrombophilia - If yes, enter type in comment: No Thrombosis Risk Factor Assessment Total Risk Factor Score: 5 Thrombosis Risk Factor Assessment Level: High Risk
[2019-01-22] MEDS: OXYBUTYNIN 15 MG TAB.ER.24 PO SCH (21:54)
[2019-01-22] MEDS ORDERED: NAPROXEN 250 MG TAB PO SCH (22:00)
[2019-01-23] MEDS: FUROSEMIDE 10 MG/ML 2 ML VIAL IV SCH ×3 (06:26→17:28)
[2019-01-23] MEDS: CARBIDOPA-LEVODOPA ER 25-100MG 1 EACH TABLET.ER PO SCH ×4 (08:30→21:46)
[2019-01-23] MEDS: PANTOPRAZOLE 40 MG TABLET PO SCH (08:30)
[2019-01-23] MEDS: SENNOSIDES-DOCUSATE SODIUM 1 EACH TAB PO SCH ×2 (08:30→21:46)
[2019-01-23] MEDS: CHOLECALCIFEROL 1,000 UNIT TAB PO SCH (08:30)
[2019-01-23 09:44] LABS: INR 3.2 (<1.2); Prothrombin Time 30.8 sec (9.0-12.0)
[2019-01-23] MEDS: ACETAMINOPHEN TAB 325 MG TAB PO PRN ×2 (12:37→21:46)
[2019-01-23] MEDS ORDERED: WARFARIN 0.5 MG TAB PO ONE (18:00)
[2019-01-23] MEDS: OXYBUTYNIN 15 MG TAB.ER.24 PO SCH (21:46)
--- NOTE | 2019-01-23 21:58 | P.PN ---
Progress Note - Text Progress Note Date: 01/23/19 Presenting complaint: Leg swelling Interval history: Patient admitted with CHF exacerbation. On IV Lasix. Today-feeling better. The tolerate her diet. Tobias wrap and lower extremity. Breathing stable. No new issues. Laying in bed. Review of systems: Was done for constitutional, cardiovascular, GI, pulmonary. relevant finding as above Current medications reviewed that included: IV Lasix Physical examination: VITAL SIGNS: 98.1, 76, 18, 151/65, 92% room air GENERAL: Laying in bed, awake,. EYES: Pupils equal. Conjunctiva normal. HEENT: External appearance of nose and ears normal, oral cavity grossly normal. NECK: JVD not raised; masses not palpable. HEART: First and second heart sounds are normal; edema present. LUNGS: Respiratory rate normal; clear to auscultation. ABDOMEN: Soft, nontender, liver spleen not palpable, no masses palpable. PSYCH: Alert and oriented x3; mood and affect normal. MUSCULOSKELETAL evidence of osteoarthritis in the hands and knees Investigations reviewed in the clinical context: INR 3.2 Assessment: -Possible acute congestive heart failure exacerbation, EF not known, clinical improvement -Obesity BMI 34.5 -Chronic DVT for which patient chronically on Coumadin -GERD -Essential hypertension -Mild cognitive impairment from underlying Alzheimer's dementia -Primary Ruddy arthritis -Idiopathic Parkinson's disease -Chronic urinary incontinence -Chronic gait dysfunction uses a walker -Chronic lower extremity swelling from DVT that is from venous insufficiency Plan: IV Lasix now discontinued. Check labs in the morning. Care was discussed with the patient. Pending to go to rehab.
[2019-01-24 07:50] LABS: INR 2.2 (<1.2); Prothrombin Time 21.7 sec (9.0-12.0)
[2019-01-24 08:07] LABS: Calcium 8.8 mg/dL (8.4-10.2); Potassium 3.6 mmol/L (3.5-5.1)
[2019-01-24] MEDS: CARBIDOPA-LEVODOPA ER 25-100MG 1 EACH TABLET.ER PO SCH ×4 (08:08→21:32)
[2019-01-24] MEDS: PANTOPRAZOLE 40 MG TABLET PO SCH (08:08)
[2019-01-24] MEDS: SENNOSIDES-DOCUSATE SODIUM 1 EACH TAB PO SCH ×2 (08:09→21:32)
[2019-01-24] MEDS: CHOLECALCIFEROL 1,000 UNIT TAB PO SCH (08:09)
--- NOTE | 2019-01-24 09:22 | ECHOF ---
Referral Reason:chf MEASUREMENTS -------- HEIGHT: 7.6 cm WEIGHT: 88.5 kg BP: IVSd: 1.7 cm (0.6 - 1.1) LVIDd: 3.2 cm (3.9 - 5.3) LVPWd: 1.5 cm (0.6 - 1.1) IVSs: 2.2 cm LVIDs: 1.7 cm LVPWs: 1.7 cm Ao Diam: 2.7 cm (2.0 - 3.7) AV Cusp: 1.8 cm (1.5 - 2.6) LA Diam: 3.6 cm (2.7 - 3.8) MV EXCURSION: 10.759 mm (> 18.000) MV EF SLOPE: 41 mm/s (70 - 150) EPSS: 0.5 cm MV E Faisal: 0.59 m/s MV DecT: 276 ms MV A Faisal: 1.07 m/s MV E/A Ratio: 0.55 AV maxP.36 mmHg AV meanP.81 mmHg AR PHT: 810 ms RAP: 5.00 mmHg RVSP: 37.00 mmHg FINDINGS -------- Sinus rhythm. This was a technically adequate study. The left ventricular size is normal. There is moderate concentric left ventricular hypertrophy. O verall left ventricular systolic function is normal with, an EF between 55 - 60 %. The right ventricle is normal in size. The left atrial size is normal. The right atrial size is normal. Interatrial and interventricular septum intact. Aortic valve is trileaflet and is mildly thickened. There is mild aortic valve sclerosis. Peak/me an gradient across the Aortic Valve is 13.36mmHg / 7.81mmHg. The mitral valve leaflets are mildly thickened. There is trace mitral regurgitation. Mild tricuspid regurgitation present. There is mild pulmonary hypertension. The right ventricular systolic pressure, as measured by Doppler, is 37.00mmHg. There is no pulmonic regurgitation present. The aortic root size is normal. Normal inferior vena cava with normal inspiratory collapse consistent with estimated right atrial pre ssure of 5 mmHg. There is no pericardial effusion. CONCLUSIONS -------- 1. Sinus rhythm. 2. This was a technically adequate study. 3. The left ventricular size is normal. 4. There is moderate concentric left ventricular hypertrophy. 5. Overall left ventricular systolic function is normal with, an EF between 55 - 60 %. 6. The right ventricle is normal in size. 7. The left atrial size is normal. 8. The right atrial size is normal. 9. Interatrial and interventricular septum intact. 10. Aortic valve is trileaflet and is mildly thickened. 11. There is mild aortic valve sclerosis. 12. Peak/mean gradient across the Aortic Valve is 13.36mmHg / 7.81mmHg. 13. The mitral valve leaflets are mildly thickened. 14. There is trace mitral regurgitation. 15. Mild tricuspid regurgitation present. 16. There is mild pulmonary hypertension. 17. The right ventricular systolic pressure, as measured by Doppler, is 37.00mmHg. 18. There is no pulmonic regurgitation present. 19. The aortic root size is normal. 20. Normal inferior vena cava with normal inspiratory collapse consistent with estimated right atrial pressure of 5 mmHg. 21. There is no pericardial effusion. PAPER COATING SUPERVISOR: Parisa Ratliff RDCS
[2019-01-24] MEDS ORDERED: WARFARIN 2.5 MG TAB PO ONE (18:00)
[2019-01-24] MEDS: ACETAMINOPHEN TAB 325 MG TAB PO PRN (19:25)
--- NOTE | 2019-01-24 21:30 | P.PN ---
Progress Note - Text Progress Note Date: 01/24/19 Presenting complaint: Leg swelling Interval history: Patient admitted with CHF exacerbation. Sitting up in a chair. Comfortable. No new issues. Did tolerate her diet.. Review of systems: Was done for constitutional, cardiovascular, GI, pulmonary. relevant finding as above Current medications reviewed Physical examination: VITAL SIGNS: 98.1, 76, 18, 151/75, 92% room air GENERAL: Proper up in chair, comfortable,. EYES: Pupils equal. Conjunctiva normal. HEENT: External appearance of nose and ears normal, oral cavity grossly normal. NECK: JVD not raised; masses not palpable. HEART: First and second heart sounds are normal; edema present. LUNGS: Respiratory rate normal; clear to auscultation. ABDOMEN: Soft, nontender, liver spleen not palpable, no masses palpable. PSYCH: Alert and oriented x3; mood and affect normal. MUSCULOSKELETAL evidence of osteoarthritis in the hands and knees Investigations reviewed in the clinical context: INR 2.2, potassium 3.6, creatinine 0.81 2-D echo shows EF of 55-60% Assessment: -Possible acute congestive heart failure exacerbation, from diastolic dysfunction EF 55-60% clinical improvement -Obesity BMI 34.5 -Chronic DVT for which patient chronically on Coumadin -GERD -Essential hypertension -Mild cognitive impairment from underlying Alzheimer's dementia -Primary Ruddy arthritis -Idiopathic Parkinson's disease -Chronic urinary incontinence -Chronic gait dysfunction uses a walker -Chronic lower extremity swelling from DVT that is from venous insufficiency Plan: Stable. Pending to go to ECF. Aldactone 25 mg daily
[2019-01-24] MEDS: OXYBUTYNIN 15 MG TAB.ER.24 PO SCH (21:32)
[2019-01-25] MEDS: ACETAMINOPHEN TAB 325 MG TAB PO PRN (04:50)
[2019-01-25 07:32] VITALS: BP 134/55; PULSE 59; RESP 18; TEMP 97.9
[2019-01-25] MEDS: PANTOPRAZOLE 40 MG TABLET PO SCH (08:27)
[2019-01-25] MEDS: SENNOSIDES-DOCUSATE SODIUM 1 EACH TAB PO SCH (08:27)
[2019-01-25] MEDS: CHOLECALCIFEROL 1,000 UNIT TAB PO SCH (08:27)
[2019-01-25] MEDS: CARBIDOPA-LEVODOPA ER 25-100MG 1 EACH TABLET.ER PO SCH ×2 (08:28→13:23)
[2019-01-25] MEDS ORDERED: SPIRONOLACTONE 25 MG TAB PO SCH (09:00)
[2019-01-25 09:44] LABS: INR 1.9 (<1.2); Prothrombin Time 18.7 sec (9.0-12.0)
[2019-01-25 09:58] LABS: African American GFR (CKD) >90 (>60 ml/min/1.73 sqM); Anion Gap 14 mmol/L; Blood Urea Nitrogen 18 mg/dL (7-17); Calcium 8.7 mg/dL (8.4-10.2); Carbon Dioxide 24 mmol/L (22-30); Chloride 94 mmol/L (98-107); Glucose 151 mg/dL (74-99); Sodium 132 mmol/L (137-145)
[2019-01-25 10:06] LABS: Potassium 4.2 mmol/L (3.5-5.1)
--- NOTE | 2019-01-25 12:22 | P.DS ---
Providers Date of admission: 01/22/19 12:07 Expected date of discharge: 01/25/19 Attending physician: Tim Levy Primary care physician: Angel Benitez [facility] Course: Discharge diagnoses -Possible acute congestive heart failure exacerbation, from diastolic dysfunction EF 55-60% -Obesity BMI 34.5 -Chronic DVT for which patient chronically on Coumadin -GERD -Essential hypertension -Mild cognitive impairment from underlying Alzheimer's dementia -Primary Ruddy arthritis -Idiopathic Parkinson's disease -Chronic urinary incontinence -Chronic gait dysfunction uses a walker -Chronic lower extremity swelling from DVT that is from venous insufficiency Hospital course: This patient has chronic lower extremity edema from venous insufficiency. Additional swelling and presented patient's found to be in CHF exacerbation from diastolic dysfunction. 2-D echo showed EF of 51-60%. Overall doing much better. Care was discussed the patient. Physical examination: VITAL SIGNS: 97.69, 59, 18, 134.55, 91% room air GENERAL: Sitting up chair, comfortable,. EYES: Pupils equal. Conjunctiva normal. HEENT: External appearance of nose and ears normal, oral cavity grossly normal. NECK: JVD not raised; masses not palpable. HEART: First and second heart sounds are normal; edema present. LUNGS: Respiratory rate normal; clear to auscultation. ABDOMEN: Soft, nontender, liver spleen not palpable, no masses palpable. PSYCH: Alert and oriented x3; mood and affect normal. MUSCULOSKELETAL evidence of osteoarthritis in the hands and knees Investigations: INR 1.9, potassium 4.2, creatinine 0.66 Disposition: [facility] Patient Condition at Discharge: Stable Plan - Discharge Summary Discharge Rx Participant: No New Discharge Prescriptions: New Spironolactone [Aldactone] 25 mg PO DAILY tab Sennosides-Docusate Sodium [Senokot-S] 1 each PO BID tab Acetaminophen Tab [Tylenol] 650 mg PO Q6HR PRN tab PRN Reason: Mild Pain Or Fever > 100.5 Continue Omeprazole [PriLOSEC] 20 mg PO BID Carbidopa-Levodopa ER 25-100Mg [Sinemet CR 25-100 mg] 1 tab PO QID Warfarin Sodium 2.5 mg PO SUTUTHSA@1600 Warfarin Sodium 1.25 mg PO MOWEFR@1600 Oxybutynin ER [Ditropan Xl] 15 mg PO HS Discontinued Cholecalciferol (Vitamin D3) [Vitamin D3] 2,000 units PO DAILY Discharge Medication List Carbidopa-Levodopa ER 25-100Mg [Sinemet CR 25-100 mg] 1 tab PO QID 01/11/19 [History] Omeprazole [PriLOSEC] 20 mg PO BID 01/11/19 [History] Oxybutynin ER [Ditropan Xl] 15 mg PO HS 01/11/19 [History] Warfarin Sodium 1.25 mg PO MOWEFR@1600 01/11/19 [History] Warfarin Sodium 2.5 mg PO SUTUTHSA@1600 01/11/19 [History] Acetaminophen Tab [Tylenol] 650 mg PO Q6HR PRN tab 01/25/19 [Rx] Sennosides-Docusate Sodium [Senokot-S] 1 each PO BID tab 01/25/19 [Rx] Spironolactone [Aldactone] 25 mg PO DAILY tab 01/25/19 [Rx] Follow up Appointment(s)/Referral(s): Angel Benitez DO [Primary Care Provider] - 1-2 days
[2019-01-25] MEDS ORDERED: WARFARIN 2 MG TAB PO ONE (18:00)
== END 2019-01-25 14:09 | DRG 292 ==
LOC: EC 10:56 → 4SSUR 15:24 → OBSVTOIN 01-22 12:07 → 4MS4W 01-22 18:46
PROVIDERS: ADMIT Hospitalist; ATTEND Hospitalist
DX: I11.0 Hypertensive heart disease with heart failure (principal); I82.503 Chronic embolism and thrombosis of unspecified deep veins of lower extremity, bilateral; I50.33 Acute on chronic diastolic (congestive) heart failure; E66.9 Obesity, unspecified; F02.80 Dementia in other diseases classified elsewhere, unspecified severity, without behavioral disturbance, psychotic disturbance, mood disturbance, and anxiety; G20 Parkinson's disease; G30.9 Alzheimer's disease, unspecified; I87.2 Venous insufficiency (chronic) (peripheral); J45.909 Unspecified asthma, uncomplicated; K21.9 Gastro-esophageal reflux disease without esophagitis; M19.90 Unspecified osteoarthritis, unspecified site; Z87.440 Personal history of urinary (tract) infections; R62.7 Adult failure to thrive; Z68.34 Body mass index [BMI] 34.0-34.9, adult; Z79.01 Long term (current) use of anticoagulants; Z80.0 Family history of malignant neoplasm of digestive organs; Z80.52 Family history of malignant neoplasm of bladder; Z82.49 Family history of ischemic heart disease and other diseases of the circulatory system; Z82.5 Family history of asthma and other chronic lower respiratory diseases; Z86.73 Personal history of transient ischemic attack (TIA), and cerebral infarction without residual deficits; Z90.710 Acquired absence of both cervix and uterus; Z91.81 History of falling; Z98.42 Cataract extraction status, left eye; Z98.41 Cataract extraction status, right eye; Z96.1 Presence of intraocular lens
CPT/HCPCS: 36415; 71046; 80048; 80053; 81003; 83880; 84484; 85025; 85610; 85730; 93005; 93306; 93970; 99285

== ENCOUNTER 2019-02-11 11:41 | Emergency (ER) | payer MEDICARE, OTHER ==
[2019-02-11] MEDS ORDERED: hydrALAZINE HCL 20 MG/ML 1 ML VIAL IVP STA ×2 (12:03→14:22)
--- NOTE | 2019-02-11 12:10 | ED ---
General Adult HPI - General Chief complaint: Dizziness Stated complaint: SOB, Swelling in legs Time Seen by Provider: 02/11/19 11:50 Source: patient, family, RN notes reviewed Mode of arrival: wheelchair Limitations: physical limitation - History of Present Illness Initial comments: This is a 78-year-old female with a past medical history of DVTs and PEs patient has been on Coumadin for many many years. Patient comes in today stating that she just got out of the jail and things were going well but this morning she was a little dizzy had a mild headache. Patient states she also felt like her legs were more swollen than normal as well as her abdomen being swollen. Patient stated she might of been a little short of breath this morning but she denied any chest pain or palpitations. Patient states she was just recently started on Aldactone and she did take it today. Patient has no numbness or weakness patient denies any slurred speech or visual problems. - Related Data Home Medications Medication Instructions Recorded Confirmed Carbidopa-Levodopa ER 25-100Mg 1 tab PO QID 01/11/19 02/11/19 [Sinemet CR 25-100 mg] Omeprazole [PriLOSEC] 20 mg PO BID 01/11/19 02/11/19 Warfarin Sodium 1.25 mg PO MOWEFR@1600 01/11/19 02/11/19 Warfarin Sodium 2.5 mg PO SUTUTHSA@1600 01/11/19 02/11/19 Mirabegron [Myrbetriq] 25 mg PO DAILY 02/11/19 02/11/19 Sennosides-Docusate Sodium 1 tab PO BID 02/11/19 02/11/19 [Senokot-S] Previous Rx's Medication Instructions Recorded Acetaminophen Tab [Tylenol] 650 mg PO Q6HR PRN tab 01/25/19 Spironolactone [Aldactone] 25 mg PO DAILY tab 01/25/19 amLODIPine [Norvasc] 5 mg PO DAILY #10 tab 02/11/19 Allergies Allergy/AdvReac Type Severity Reaction Status Date / Time Influenza Virus Vaccines Allergy Swelling Verified 02/11/19 13:05 Penicillins Allergy Anaphylaxis Verified 02/11/19 13:05 Review of Systems ROS Statement: Those systems with pertinent positive or pertinent negative responses have been documented in the HPI. ROS Other: All systems not noted in ROS Statement are negative. Past Medical History Past Medical History: Asthma, CVA/TIA, Deep Vein Thrombosis (DVT), GERD/Reflux, Hypertension, Memory Impairment, Musculoskeletal Disorder, Neurologic Disorder, Osteoarthritis (OA) Additional Past Medical History / Comment(s): Ulcerative colitis, diverticulitis, parkinson's disease, CVA which pt was unaware of having-showed on cat scan, several DVTs bilateral legs and pt states since she has had intermittent bilateral ankle edema, thrombophlebitis, PE-pt cannot recall laterallity, generalized arthritis, urinaty leakage, a few UTIs. History of Any Multi-Drug Resistant Organisms: None Reported Past Surgical History: Cholecystectomy, Hysterectomy, Orthopedic Surgery, Tubal Ligation Additional Past Surgical History / Comment(s): L shoulder injury with surgery to repair, removals of DVTs bilateral legs, cataract removal/lens implants, colonoscopies. Past Anesthesia/Blood Transfusion Reactions: Postoperative Nausea & Vomiting (PONV) Additional Past Anesthesia/Blood Transfusion Reaction / Comment(s): Pt received blood with hysterectomy without reaction. Past Psychological History: No Psychological Hx Reported Smoking Status: Never smoker Past Alcohol Use History: None Reported Past Drug Use History: None Reported - Past Family History Father Family Medical History: Asthma, Cancer, COPD Additional Family Medical History / Comment(s): Gallbladder cancer Mother Family Medical History: Myocardial Infarction ([place]) Additional Family Medical History / Comment(s): Mother of a [place] at the age of 48 yrs. Sister(s) Additional Family Medical History / Comment(s): Sister of a blood clot at age 38 yrs-pt cannot recall specifics. General Exam - General Exam Comments Initial Comments: GENERAL: Patient is well-developed and well-nourished. Patient is nontoxic and well- hydrated and is in mild distress. ENT: Neck is soft and supple. No significant lymphadenopathy is noted. Oropharynx is clear. Moist mucous membranes. Neck has full range of motion without eliciting any pain. EYES: The sclera were anicteric and conjunctiva were pink and moist. Extraocular movements were intact and pupils were equal round and reactive to light. Eyelids were unremarkable. PULMONARY: Unlabored respirations. Good breath sounds bilaterally. No audible rales rho nchi or wheezing was noted. CARDIOVASCULAR: There is a regular rate and rhythm without any murmurs gallops or rubs. ABDOMEN: Soft and nontender with normal bowel sounds. SKIN: Skin is clear with no lesions or rashes and otherwise unremarkable. NEUROLOGIC: Patient is alert and oriented x3. Cranial nerves II through XII are grossly intact. Motor and sensory are also intact. Normal speech, volume and content. Symmetrical smile. MUSCULOSKELETAL: Normal extremities with adequate strength and full range of motion. I do not notice any pedal edema or edema to the abdomen. LYMPHATICS: No significant lymphadenopathy is noted PSYCHIATRIC: Normal psychiatric evaluation. Limitations: physical limitation Course Vital Signs 02/11/19 02/11/19 02/11/19 11:49 12:10 12:21 Temperature 98.7 F Pulse Rate 73 67 66 Respiratory 20 12 18 Rate Blood Pressure 159/85 195/79 175/69 O2 Sat by Pulse 95 96 97 Oximetry 02/11/19 12:29 Temperature Pulse Rate 65 Respiratory 18 Rate Blood Pressure 169/63 O2 Sat by Pulse 97 Oximetry Medical Decision Making - Medical Decision Making EKG shows normal sinus rhythm at 60 bpm MO interval is 134 tresses 82 QT interval 364 QTC is 387. Patient's EKG shows no ST segment elevation or depression or T wave abnormalities are noted. Patient is given hydralazine emergency department about her blood pressure down she stated that she had no longer any headache and she denied any nausea at this time. Patient states she felt back to her baseline. Patient states she'll follow-up with primary medical care doctor for blood pressure medication. - Lab Data Result diagrams: 02/11/19 12:15 02/11/19 12:15 Lab Results 02/11/19 02/11/19 02/11/19 Range/Units 12:15 12:15 12:15 WBC 5.9 (3.8-10.6) k/uL RBC 4.48 (3.80-5.40) m/uL Hgb 13.2 (11.4-16.0) gm/dL Hct 39.0 (34.0-46.0) % MCV 87.1 (80.0-100.0) fL MCH 29.5 (25.0-35.0) pg MCHC 33.9 (31.0-37.0) g/dL RDW 14.1 (11.5-15.5) % Plt Count 270 (150-450) k/uL Neutrophils % 70 % Lymphocytes % 20 % Monocytes % 6 % Eosinophils % 2 % Basophils % 1 % Neutrophils # 4.1 (1.3-7.7) k/uL Lymphocytes # 1.2 (1.0-4.8) k/uL Monocytes # 0.3 (0-1.0) k/uL Eosinophils # 0.1 (0-0.7) k/uL Basophils # 0.1 (0-0.2) k/uL PT 22.0 H (9.0-12.0) sec INR 2.3 H (<1.2) APTT 30.0 (22.0-30.0) sec Sodium 138 (137-145) mmol/L Potassium 4.0 (3.5-5.1) mmol/L Chloride 102 (98-107) mmol/L Carbon Dioxide 29 (22-30) mmol/L Anion Gap 7 mmol/L BUN 16 (7-17) mg/dL Creatinine 0.68 (0.52-1.04) mg/dL Est GFR (CKD-EPI)AfAm >90 (>60 ml/min/1.73 sqM) Est GFR (CKD-EPI)NonAf 84 (>60 ml/min/1.73 sqM) Glucose 97 (74-99) mg/dL Calcium 9.5 (8.4-10.2) mg/dL Total Bilirubin 0.5 (0.2-1.3) mg/dL AST 18 (14-36) U/L ALT 12 (9-52) U/L Alkaline Phosphatase 56 (38-126) U/L Troponin I (0.000-0.034) ng/mL Total Protein 7.1 (6.3-8.2) g/dL Albumin 4.1 (3.5-5.0) g/dL 02/11/19 Range/Units 12:15 WBC (3.8-10.6) k/uL RBC (3.80-5.40) m/uL Hgb (11.4-16.0) gm/dL Hct (34.0-46.0) % MCV (80.0-100.0) fL MCH (25.0-35.0) pg MCHC (31.0-37.0) g/dL RDW (11.5-15.5) % Plt Count (150-450) k/uL Neutrophils % % Lymphocytes % % Monocytes % % Eosinophils % % Basophils % % Neutrophils # (1.3-7.7) k/uL Lymphocytes # (1.0-4.8) k/uL Monocytes # (0-1.0) k/uL Eosinophils # (0-0.7) k/uL Basophils # (0-0.2) k/uL PT (9.0-12.0) sec INR (<1.2) APTT (22.0-30.0) sec Sodium (137-145) mmol/L Potassium (3.5-5.1) mmol/L Chloride (98-107) mmol/L Carbon Dioxide (22-30) mmol/L Anion Gap mmol/L BUN (7-17) mg/dL Creatinine (0.52-1.04) mg/dL Est GFR (CKD-EPI)AfAm (>60 ml/min/1.73 sqM) Est GFR (CKD-EPI)NonAf (>60 ml/min/1.73 sqM) Glucose (74-99) mg/dL Calcium (8.4-10.2) mg/dL Total Bilirubin (0.2-1.3) mg/dL AST (14-36) U/L ALT (9-52) U/L Alkaline Phosphatase (38-126) U/L Troponin I <0.012 (0.000-0.034) ng/mL Total Protein (6.3-8.2) g/dL Albumin (3.5-5.0) g/dL Disposition Clinical Impression: Hypertension Disposition: HOME SELF-CARE Condition: Good Instructions (If sedation given, give patient instructions): Hypertension (ED) Prescriptions: amLODIPine [Norvasc] 5 mg PO DAILY #10 tab Is patient prescribed a controlled substance at d/c from ED?: No Referrals: Angel Benitez DO [Primary Care Provider] - 1-2 days Time of Disposition: 14:23
[2019-02-11 12:38] LABS: Basophils # (A) 0.1 k/uL (0-0.2); Basophils % (A) 1 %; Eosinophils # (A) 0.1 k/uL (0-0.7); Eosinophils % (A) 2 %; HGB 13.2 gm/dL (11.4-16.0); Lymphocytes # (A) 1.2 k/uL (1.0-4.8); Lymphocytes % (A) 20 %; MCH 29.5 pg (25.0-35.0); MCHC 33.9 g/dL (31.0-37.0); MCV 87.1 fL (80.0-100.0); Mean Platelet Volume 6.8; Monocytes # (A) 0.3 k/uL (0-1.0); Monocytes % (A) 6 %; Neutrophils # (A) 4.1 k/uL (1.3-7.7); Neutrophils % (A) 70 %; Platelet Count 270 k/uL (150-450); RBC 4.48 m/uL (3.80-5.40); RDW 14.1 % (11.5-15.5); WBC 5.9 k/uL (3.8-10.6)
[2019-02-11 12:53] LABS: INR 2.3 (<1.2)
--- NOTE | 2019-02-11 12:56 | XR ---
EXAMINATION TYPE: XR chest 2V DATE OF EXAM: 02/11/2019 COMPARISON: 01/21/2019 INDICATION: Difficulty breathing, elevated blood pressure TECHNIQUE: Frontal and lateral views of the chest are obtained. FINDINGS: The heart size is normal. The pulmonary vasculature is normal. The lungs are clear. IMPRESSION: 1. No acute pulmonary process.
[2019-02-11 13:02] LABS: ALT 12 U/L (9-52); AST 18 U/L (14-36); African American GFR (CKD) >90 (>60 ml/min/1.73 sqM); Albumin 4.1 g/dL (3.5-5.0); Alkaline Phosphatase 56 U/L (38-126); Anion Gap 7 mmol/L; Blood Urea Nitrogen 16 mg/dL (7-17); Calcium 9.5 mg/dL (8.4-10.2); Carbon Dioxide 29 mmol/L (22-30); Chloride 102 mmol/L (98-107); Glucose 97 mg/dL (74-99); Sodium 138 mmol/L (137-145); Total Bilirubin 0.5 mg/dL (0.2-1.3); Total Protein 7.1 g/dL (6.3-8.2)
[2019-02-11 14:52] VITALS: BP 166/60; PULSE 88; RESP 18; TEMP 97.6
== END 2019-02-11 15:22 | disposition home or self-care (01) ==
LOC: EC 11:41
DX: I10 Essential (primary) hypertension (principal); R42 Dizziness and giddiness; R51 Headache; R06.02 Shortness of breath; M79.89 Other specified soft tissue disorders; R19.00 Intra-abdominal and pelvic swelling, mass and lump, unspecified site; K21.9 Gastro-esophageal reflux disease without esophagitis; M19.90 Unspecified osteoarthritis, unspecified site; Z86.718 Personal history of other venous thrombosis and embolism; Z86.711 Personal history of pulmonary embolism; Z86.73 Personal history of transient ischemic attack (TIA), and cerebral infarction without residual deficits; Z79.01 Long term (current) use of anticoagulants; Z79.899 Other long term (current) drug therapy; Z88.0 Allergy status to penicillin; Z88.7 Allergy status to serum and vaccine
CPT/HCPCS: 36415; 93005; 80053; 84484; 85025; 85610; 85730; 71046; 99284; 96374; 96376; J0360

== ENCOUNTER 2019-02-19 08:58 | Observation (INO) | payer MEDICARE, OTHER ==
[2019-02-19] MEDS ORDERED: IPRATROPIUM-ALBUTEROL 3 ML NEB INHALATION STA (09:17)
--- NOTE | 2019-02-19 09:20 | ED ---
General Adult HPI - General Chief complaint: Shortness of Breath Stated complaint: Diff Breathing Time Seen by Provider: 02/19/19 09:08 Source: patient, EMS, RN notes reviewed Mode of arrival: EMS Limitations: no limitations - History of Present Illness Initial comments: Patient is a pleasant 78-year-old female presenting to the emergency department with difficulty breathing. Onset of symptoms was yesterday. Patient does have occasional cough that is nonproductive. Patient has history of similar symptoms previously associated with asthma. Patient does admit to have some swelling. No calf pain. Patient does have a history of CHF as well. Patient states she feels like she may have been warm however did not take her temperature. Patient also complains of urinary frequency. - Related Data Home Medications Medication Instructions Recorded Confirmed Carbidopa-Levodopa ER 25-100Mg 1 tab PO QID 01/11/19 02/19/19 [Sinemet CR 25-100 mg] Omeprazole [PriLOSEC] 20 mg PO BID 01/11/19 02/19/19 Warfarin Sodium 1.25 mg PO MOWEFR@1600 01/11/19 02/19/19 Warfarin Sodium 2.5 mg PO SUTUTHSA@1600 01/11/19 02/19/19 Mirabegron [Myrbetriq] 25 mg PO DAILY 02/11/19 02/19/19 Sennosides-Docusate Sodium 1 tab PO BID 02/11/19 02/19/19 [Senokot-S] Acetaminophen Tab [Tylenol Tab] 500 mg PO TID PRN 02/19/19 02/19/19 Bisacodyl [Dulcolax] 5 mg PO BID 02/19/19 02/19/19 Cholecalciferol [Vitamin D3 (25 2,000 unit PO DAILY 02/19/19 02/19/19 Mcg = 1000 Iu)] Previous Rx's Medication Instructions Recorded Spironolactone [Aldactone] 25 mg PO DAILY tab 01/25/19 amLODIPine [Norvasc] 5 mg PO DAILY #10 tab 02/11/19 Allergies Allergy/AdvReac Type Severity Reaction Status Date / Time Influenza Virus Vaccines Allergy Swelling Verified 02/19/19 09:22 Penicillins Allergy Anaphylaxis Verified 02/19/19 09:22 Review of Systems ROS Statement: Those systems with pertinent positive or pertinent negative responses have been documented in the HPI. ROS Other: All systems not noted in ROS Statement are negative. Constitutional: Reports: as per HPI Eyes: Denies: eye pain ENT: Denies: ear pain Respiratory: Reports: cough, dyspnea Cardiovascular: Denies: chest pain Endocrine: Reports: fatigue Gastrointestinal: Denies: abdominal pain Genitourinary: Reports: frequency. Denies: dysuria Musculoskeletal: Denies: back pain Skin: Denies: rash Neurological: Denies: headache Past Medical History Past Medical History: Asthma, CVA/TIA, Deep Vein Thrombosis (DVT), GERD/Reflux, Hypertension, Memory Impairment, Musculoskeletal Disorder, Neurologic Disorder, Osteoarthritis (OA) Additional Past Medical History / Comment(s): Ulcerative colitis, diverticulitis, parkinson's disease, CVA which pt was unaware of having-showed on cat scan, several DVTs bilateral legs and pt states since she has had intermittent bilateral ankle edema, thrombophlebitis, PE-pt cannot recall laterallity, generalized arthritis, urinaty leakage, a few UTIs. History of Any Multi-Drug Resistant Organisms: None Reported Past Surgical History: Cholecystectomy, Hysterectomy, Orthopedic Surgery, Tubal Ligation Additional Past Surgical History / Comment(s): L shoulder injury with surgery to repair, removals of DVTs bilateral legs, cataract removal/lens implants, colonoscopies. Past Anesthesia/Blood Transfusion Reactions: Postoperative Nausea & Vomiting (PONV) Additional Past Anesthesia/Blood Transfusion Reaction / Comment(s): Pt received blood with hysterectomy without reaction. Past Psychological History: No Psychological Hx Reported Smoking Status: Never smoker Past Alcohol Use History: None Reported Past Drug Use History: None Reported - Past Family History Father Family Medical History: Asthma, Cancer, COPD Additional Family Medical History / Comment(s): Gallbladder cancer Mother Family Medical History: Myocardial Infarction ([place]) Additional Family Medical History / Comment(s): Mother of a [place] at the age of 48 yrs. Sister(s) Additional Family Medical History / Comment(s): Sister of a blood clot at age 38 yrs-pt cannot recall specifics. General Exam Limitations: no limitations General appearance: alert, in no apparent distress Head exam: Present: atraumatic Eye exam: Present: normal appearance, PERRL ENT exam: Present: normal oropharynx Neck exam: Present: normal inspection Respiratory exam: Present: wheezes (Mild), decreased breath sounds Cardiovascular Exam: Present: regular rate, normal rhythm GI/Abdominal exam: Present: soft. Absent: tenderness Extremities exam: Present: pedal edema. Absent: calf tenderness Neurological exam: Present: alert Psychiatric exam: Present: normal affect, normal mood Skin exam: Present: normal color Course Vital Signs 02/19/19 02/19/19 02/19/19 09:02 09:33 09:39 Temperature 98.1 F Pulse Rate 71 65 68 Respiratory 17 Rate Blood Pressure 174/71 O2 Sat by Pulse 92 L Oximetry EKG Findings - EKG Comments: EKG Findings:: Normal sinus rhythm 65. AL 140. QRS 88. QT 378. QTC 393. Left axis. Normal QRS. No acute ST change. Medical Decision Making - Medical Decision Making Patient reevaluated and somewhat improved following nebulizer treatment. Justin franklin does not feel comfortable with discharge home at this point and would like to stay. Patient and family were updated on results and plan. Case was discussed in detail with Dr. Levy, covering for Dr. Benitez, who will admit. - Lab Data Result diagrams: 02/19/19 09:30 02/19/19 09:30 Lab Results 02/19/19 02/19/19 02/19/19 Range/Units 09:30 09:30 09:30 WBC 5.5 (3.8-10.6) k/uL RBC 4.37 (3.80-5.40) m/uL Hgb 12.8 (11.4-16.0) gm/dL Hct 38.0 (34.0-46.0) % MCV 87.0 (80.0-100.0) fL MCH 29.3 (25.0-35.0) pg MCHC 33.7 (31.0-37.0) g/dL RDW 14.2 (11.5-15.5) % Plt Count 261 (150-450) k/uL Neutrophils % 65 % Lymphocytes % 25 % Monocytes % 5 % Eosinophils % 2 % Basophils % 1 % Neutrophils # 3.5 (1.3-7.7) k/uL Lymphocytes # 1.4 (1.0-4.8) k/uL Monocytes # 0.3 (0-1.0) k/uL Eosinophils # 0.1 (0-0.7) k/uL Basophils # 0.1 (0-0.2) k/uL PT (9.0-12.0) sec INR (<1.2) APTT (22.0-30.0) sec Sodium 139 (137-145) mmol/L Potassium 4.1 (3.5-5.1) mmol/L Chloride 103 (98-107) mmol/L Carbon Dioxide 27 (22-30) mmol/L Anion Gap 9 mmol/L BUN 15 (7-17) mg/dL Creatinine 0.59 (0.52-1.04) mg/dL Est GFR (CKD-EPI)AfAm >90 (>60 ml/min/1.73 sqM) Est GFR (CKD-EPI)NonAf 88 (>60 ml/min/1.73 sqM) Glucose 103 H (74-99) mg/dL Calcium 9.5 (8.4-10.2) mg/dL Total Bilirubin 0.6 (0.2-1.3) mg/dL AST 18 (14-36) U/L ALT 18 (9-52) U/L Alkaline Phosphatase 49 (38-126) U/L Troponin I (0.000-0.034) ng/mL NT-Pro-B Natriuret Pep 199 pg/mL Total Protein 6.8 (6.3-8.2) g/dL Albumin 4.0 (3.5-5.0) g/dL Urine Color Urine Appearance (Clear) Urine pH (5.0-8.0) Ur Specific Yoder (1.001-1.035) Urine Protein (Negative) Urine Glucose (UA) (Negative) Urine Ketones (Negative) Urine Blood (Negative) Urine Nitrite (Negative) Urine Bilirubin (Negative) Urine Urobilinogen (<2.0) mg/dL Ur Leukocyte Esterase (Negative) 02/19/19 02/19/19 02/19/19 Range/Units 09:30 09:30 09:55 WBC (3.8-10.6) k/uL RBC (3.80-5.40) m/uL Hgb (11.4-16.0) gm/dL Hct (34.0-46.0) % MCV (80.0-100.0) fL MCH (25.0-35.0) pg MCHC (31.0-37.0) g/dL RDW (11.5-15.5) % Plt Count (150-450) k/uL Neutrophils % % Lymphocytes % % Monocytes % % Eosinophils % % Basophils % % Neutrophils # (1.3-7.7) k/uL Lymphocytes # (1.0-4.8) k/uL Monocytes # (0-1.0) k/uL Eosinophils # (0-0.7) k/uL Basophils # (0-0.2) k/uL PT 18.2 H (9.0-12.0) sec INR 1.8 H (<1.2) APTT 29.0 (22.0-30.0) sec Sodium (137-145) mmol/L Potassium (3.5-5.1) mmol/L Chloride (98-107) mmol/L Carbon Dioxide (22-30) mmol/L Anion Gap mmol/L BUN (7-17) mg/dL Creatinine (0.52-1.04) mg/dL Est GFR (CKD-EPI)AfAm (>60 ml/min/1.73 sqM) Est GFR (CKD-EPI)NonAf (>60 ml/min/1.73 sqM) Glucose (74-99) mg/dL Calcium (8.4-10.2) mg/dL Total Bilirubin (0.2-1.3) mg/dL AST (14-36) U/L ALT (9-52) U/L Alkaline Phosphatase (38-126) U/L Troponin I <0.012 (0.000-0.034) ng/mL NT-Pro-B Natriuret Pep pg/mL Total Protein (6.3-8.2) g/dL Albumin (3.5-5.0) g/dL Urine Color Light Yellow Urine Appearance Clear (Clear) Urine pH 7.5 (5.0-8.0) Ur Specific Yoder 1.009 (1.001-1.035) Urine Protein Negative (Negative) Urine Glucose (UA) Negative (Negative) Urine Ketones Negative (Negative) Urine Blood Negative (Negative) Urine Nitrite Negative (Negative) Urine Bilirubin Negative (Negative) Urine Urobilinogen <2.0 (<2.0) mg/dL Ur Leukocyte Esterase Negative (Negative) - Radiology Data Radiology results: image reviewed (Chest x-ray shows no acute process) Disposition Clinical Impression: COPD with acute exacerbation Disposition: ADMITTED IP TO THIS HOSP Is patient prescribed a controlled substance at d/c from ED?: No Referrals: Angel Benitez DO [Primary Care Provider] - 1-2 days Decision Time: 12:09
[2019-02-19 09:45] LABS: Basophils # (A) 0.1 k/uL (0-0.2); Basophils % (A) 1 %; Eosinophils # (A) 0.1 k/uL (0-0.7); Eosinophils % (A) 2 %; HGB 12.8 gm/dL (11.4-16.0); Lymphocytes # (A) 1.4 k/uL (1.0-4.8); Lymphocytes % (A) 25 %; MCH 29.3 pg (25.0-35.0); MCHC 33.7 g/dL (31.0-37.0); Mean Platelet Volume 6.6; Monocytes # (A) 0.3 k/uL (0-1.0); Monocytes % (A) 5 %; Neutrophils # (A) 3.5 k/uL (1.3-7.7); Neutrophils % (A) 65 %; Platelet Count 261 k/uL (150-450); RBC 4.37 m/uL (3.80-5.40); RDW 14.2 % (11.5-15.5); WBC 5.5 k/uL (3.8-10.6)
[2019-02-19 09:52] LABS: INR 1.8 (<1.2); Prothrombin Time 18.2 sec (9.0-12.0)
[2019-02-19 10:07] LABS: ALT 18 U/L (9-52); AST 18 U/L (14-36); African American GFR (CKD) >90 (>60 ml/min/1.73 sqM); Alkaline Phosphatase 49 U/L (38-126); Anion Gap 9 mmol/L; Blood Urea Nitrogen 15 mg/dL (7-17); Calcium 9.5 mg/dL (8.4-10.2); Carbon Dioxide 27 mmol/L (22-30); Chloride 103 mmol/L (98-107); Glucose 103 mg/dL (74-99); Potassium 4.1 mmol/L (3.5-5.1); Sodium 139 mmol/L (137-145); Total Bilirubin 0.6 mg/dL (0.2-1.3); Total Protein 6.8 g/dL (6.3-8.2)
[2019-02-19 10:08] LABS: Appearance,Urine Clear (Clear); Bilirubin,Urine Negative (Negative); Blood,Urine Negative (Negative); Color,Urine Light Yellow; Glucose,Urine (UA) Negative (Negative); Ketones,Urine Negative (Negative); Leukocyte Esterase,Urine Negative (Negative); Nitrite,Urine Negative (Negative); PH, Urine 7.5 (5.0-8.0); Protein,Urine Negative (Negative); Specific Gravity,Urine 1.009 (1.001-1.035); Urobilinogen,Urine <2.0 mg/dL (<2.0)
--- NOTE | 2019-02-19 10:14 | XR ---
EXAMINATION TYPE: XR chest 2V DATE OF EXAM: 02/19/2019 COMPARISON: Prior chest x-ray 02/11/2019 HISTORY: Difficulty breathing, shortness of breath TECHNIQUE: Frontal and lateral views of the chest are obtained. FINDINGS: Exam is stable. There are overlying cardiac leads. Arthropathy present at the acromion clav icular joints. There is no focal air space opacity, pleural effusion, or pneumothorax seen. The card iac silhouette size is within normal limits. The osseous structures are intact. IMPRESSION: No acute cardiopulmonary process.
[2019-02-19] MEDS ORDERED: IPRATROPIUM-ALBUTEROL 3 ML NEB INHALATION PRN (12:09)
[2019-02-19] MEDS ORDERED: methylPREDNISolone SOD SUCCI 125 MG/2 ML VIAL IV STA (12:09)
[2019-02-19] MEDS: IPRATROPIUM-ALBUTEROL 3 ML NEB INHALATION SCH ×2 (15:18→18:58)
[2019-02-19] MEDS ORDERED: methylPREDNISolone SOD SUCCI 125 MG/2 ML VIAL IV SCH (18:00)
[2019-02-19] MEDS: INSULIN ASPART (NovoLOG) 100 UNIT/ML VIAL SQ SCH ×2 (19:03→20:38)
[2019-02-19] MEDS: CARBIDOPA-LEVODOPA ER 25-100MG 1 EACH TABLET.ER PO SCH ×2 (19:08→23:31)
[2019-02-19 20:31] LABS: Glucose,Whole Blood 214 mg/dL (75-99)
[2019-02-19] MEDS: SENNOSIDES-DOCUSATE SODIUM 1 EACH TAB PO SCH (20:38)
[2019-02-19] MEDS: PANTOPRAZOLE 40 MG TABLET PO SCH (20:38)
[2019-02-19] MEDS: BISACODYL 5 MG TABLET.DR PO SCH (20:38)
--- NOTE | 2019-02-19 23:16 | P.HPIM ---
History of Present Illness H&P Date: 02/19/19 Chief Complaint: Short of breath History of presenting complaint: This is a very pleasant 78-year-old patient of Dr. Benitez. Lives with her daughter. Chronic stable medical conditions include asthma hypertension Ruddy arthritis diverticulitis Parkinson's disease and arthritis. Patient was recently in the hospital and diagnosed with a UTI and cystitis. Patient also got chronic DVT and chronically on Coumadin. Patient was recently discharged from the hospital on January 25. Then admitted with CHF exacerbation. Has a EF of 55-60% patient has chronic lower extremities swelling from venous insufficiency. Patient now presents with shortness of breath for one day dry cough. No fever no chills. Also had some wheezing. Decreased appetite all tired and rundown. Admitted for the same.. Review of systems: GEN.: Tired EYES: None HEENT: None NECK: None RESPIRATORY: As above CARDIOVASCULAR: As above GASTROINTESTINAL: Heartburn GENITOURINARY: None MUSCULOSKELETAL: Pain in the joints LYMPHATICS: None HEMATOLOGICAL: None PSYCHIATRY: None NEUROLOGICAL: Uses a walker Past medical history: Chronic DVT for which patient is on Coumadin, GERD, hypertension, mild cognitive impairment, Ruddy arthritis, Parkinson disease, urinary incontinence, CHF with EF of 40-60%, gait dysfunction uses a walker, lower extremity venous insufficiency Social history: Lives with daughter. Does have a walker. No smoking or alcohol. Family history: Asthma COPD, bladder cancer Physical examination: VITAL SIGNS: 98.1, 71, 17, 174/71, 92% room air GENERAL: BMI 33.7, laying in bed, tired,. EYES: Pupils equal. Conjunctiva normal. HEENT: External appearance of nose and ears normal, oral cavity grossly normal. NECK: JVD not raised; masses not palpable. HEART: First and second heart sounds are normal; edema present. LUNGS: Respiratory rate increased, decreased breath sounds ABDOMEN: Soft, nontender, liver spleen not palpable, no masses palpable. LYMPHATICS: No lymph nodes palpable in the axilla and neck. PSYCH: Alert and oriented x3; mood and affect normal. NEUROLOGICAL: Cranial nerves grossly intact; no facial asymmetry, decreased part of the lower extremity that is 4/5, baseline tremors MUSCULOSKELETAL evidence of osteoarthritis in both the hands and knees Investigations reviewed in the clinical context: White count 5.5 hemoglobin 12.8 INR 1.8 potassium 4.1 bun 15 creatinine 0.59 Troponin less than 0.012, proBNP 199 EKG tracing personally reviewed by me shows normal sinus rhythm. Doppler ultrasound of lower extreme D negative for DVT, and the last admission Chest [id number] personally reviewed by me shows no acute infiltrate Assessment: -Acute bronchospasm likely from acute bronchitis -Chronic congestive heart failure from diastolic dysfunction EF 55-60% -Obesity BMI 34.5 -Chronic DVT for which patient chronically on Coumadin -GERD -Essential hypertension -Mild cognitive impairment from underlying Alzheimer's dementia -Primary Ruddy arthritis -Idiopathic Parkinson's disease -Chronic urinary incontinence -Chronic gait dysfunction uses a walker -Chronic lower extremity swelling from DVT that is from venous insufficiency Plan: Home medications will be renewed. 2 bronchodilators. Care was discussed with the patient. Hold off any antibiotics with acute bronchitis. Expect patient to respond in 24 hours. Past Medical History Past Medical History: Asthma, CVA/TIA, Deep Vein Thrombosis (DVT), GERD/Reflux, Hypertension, Memory Impairment, Musculoskeletal Disorder, Neurologic Disorder, Osteoarthritis (OA) Additional Past Medical History / Comment(s): Ulcerative colitis, diverticulitis, parkinson's disease, CVA which pt was unaware of having-showed on cat scan, several DVTs bilateral legs and pt states since she has had intermittent bilateral ankle edema, thrombophlebitis, PE-pt cannot recall laterallity, generalized arthritis, urinaty leakage, a few UTIs. History of Any Multi-Drug Resistant Organisms: None Reported Past Surgical History: Cholecystectomy, Hysterectomy, Orthopedic Surgery, Tubal Ligation Additional Past Surgical History / Comment(s): L shoulder injury with surgery to repair, removals of DVTs bilateral legs, cataract removal/lens implants, colonoscopies. Past Anesthesia/Blood Transfusion Reactions: Postoperative Nausea & Vomiting (PONV) Additional Past Anesthesia/Blood Transfusion Reaction / Comment(s): Pt received blood with hysterectomy without reaction. Past Psychological History: No Psychological Hx Reported Additional Psychological History / Comment(s): Pt resides with her daughter. She moved here from [place] to live with her steven 3 yrs ago. She ambulates with a walker. She no longer drives, her steven takes her to [employer]. She is otherwise independent. Smoking Status: Never smoker Past Alcohol Use History: None Reported Past Drug Use History: None Reported - Past Family History Father Family Medical History: Asthma, Cancer, COPD Additional Family Medical History / Comment(s): Gallbladder cancer Mother Family Medical History: Myocardial Infarction (WI) Additional Family Medical History / Comment(s): Mother of a [place] at the age o f 48 yrs. Sister(s) Additional Family Medical History / Comment(s): Sister of a blood clot at age 38 yrs-pt cannot recall specifics. Medications and Allergies Home Medications Medication Instructions Recorded Confirmed Type Carbidopa-Levodopa ER 25-100Mg 1 tab PO QID 01/11/19 02/19/19 History [Sinemet CR 25-100 mg] Omeprazole [PriLOSEC] 20 mg PO BID 01/11/19 02/19/19 History Warfarin Sodium 1.25 mg PO MOWEFR@1600 01/11/19 02/19/19 History Warfarin Sodium 2.5 mg PO SUTUTHSA@1600 01/11/19 02/19/19 History Spironolactone [Aldactone] 25 mg PO DAILY tab 01/25/19 02/19/19 Rx Mirabegron [Myrbetriq] 25 mg PO DAILY 02/11/19 02/19/19 History Sennosides-Docusate Sodium 1 tab PO BID 02/11/19 02/19/19 History [Senokot-S] amLODIPine [Norvasc] 5 mg PO DAILY #10 tab 02/11/19 02/19/19 Rx Acetaminophen Tab [Tylenol Tab] 500 mg PO TID PRN 02/19/19 02/19/19 History Bisacodyl [Dulcolax] 5 mg PO BID 02/19/19 02/19/19 History Cholecalciferol [Vitamin D3 (25 2,000 unit PO DAILY 02/19/19 02/19/19 History Mcg = 1000 Iu)] Allergies Allergy/AdvReac Type Severity Reaction Status Date / Time Influenza Virus Vaccines Allergy Swelling Verified 02/19/19 09:22 Penicillins Allergy Anaphylaxis Verified 02/19/19 09:22 Physical Exam Vitals: Vital Signs Temp Pulse Resp BP Pulse Ox 02/19/19 19:07 84 02/19/19 19:01 78 02/19/19 16:41 78 17 160/57 97 02/19/19 16:34 78 17 160/57 97 02/19/19 15:29 67 02/19/19 15:20 66 02/19/19 09:39 68 02/19/19 09:33 65 02/19/19 09:02 98.1 F 71 17 174/71 92 L Intake and Output 02/19/19 02/19/19 02/20/19 14:59 22:59 06:59 Other: Weight 86.183 kg Results CBC & Chem 7: 02/19/19 09:30 02/19/19 09:30 Labs: Abnormal Lab Results - Last 24 Hours (Table) 02/19/19 02/19/19 02/19/19 Range/Units 09:30 09:30 20:29 PT 18.2 H (9.0-12.0) sec INR 1.8 H (<1.2) Glucose 103 H (74-99) mg/dL POC Glucose (mg/dL) 214 H (75-99) mg/dL Thrombosis Risk Factor Assmnt - Choose All That Apply Any of the Below Risk Factors Present?: Yes Each Factor Represents 1 point: Abnormal pulmonary function (COPD), Obesity (BMI >25) Other Risk Factors: Yes Each Risk Factor Represents 2 Points: Age 61-74 years Thrombosis Risk Factor Assessment Total Risk Factor Score: 4 Thrombosis Risk Factor Assessment Level: Moderate Risk
[2019-02-19] MEDS: ACETAMINOPHEN TAB 500 MG TAB PO PRN (23:30)
[2019-02-20] MEDS: INSULIN ASPART (NovoLOG) 100 UNIT/ML VIAL SQ SCH (07:23)
[2019-02-20 07:25] LABS: Glucose,Whole Blood 120 mg/dL (75-99)
[2019-02-20] MEDS: predniSONE 20 MG TAB PO SCH (07:37)
[2019-02-20] MEDS: amLODIPine 5 MG TAB PO SCH (07:37)
[2019-02-20] MEDS: SENNOSIDES-DOCUSATE SODIUM 1 EACH TAB PO SCH ×2 (07:37→19:56)
[2019-02-20] MEDS: SPIRONOLACTONE 25 MG TAB PO SCH (07:37)
[2019-02-20] MEDS: PANTOPRAZOLE 40 MG TABLET PO SCH ×2 (07:37→19:56)
[2019-02-20] MEDS: BISACODYL 5 MG TABLET.DR PO SCH ×2 (07:37→19:56)
[2019-02-20] MEDS: CHOLECALCIFEROL 1,000 UNIT TAB PO SCH (07:37)
[2019-02-20] MEDS: ACETAMINOPHEN TAB 500 MG TAB PO PRN (07:43)
[2019-02-20] MEDS: CARBIDOPA-LEVODOPA ER 25-100MG 1 EACH TABLET.ER PO SCH ×4 (07:44→23:26)
[2019-02-20] MEDS: IPRATROPIUM-ALBUTEROL 3 ML NEB INHALATION SCH ×4 (07:49→19:21)
[2019-02-20 10:52] LABS: INR 1.8 (<1.2)
--- NOTE | 2019-02-20 16:48 | P.PN ---
Progress Note - Text Progress Note Date: 02/20/19 Chief Complaint: Short of breath History of presenting complaint: This is a very pleasant 78-year-old patient of Dr. Benitez. Lives with her daughter. Chronic stable medical conditions include asthma hypertension Ruddy arthritis diverticulitis Parkinson's disease and arthritis. Patient was recently in the hospital and diagnosed with a UTI and cystitis. Patient also got chronic DVT and chronically on Coumadin. Patient was recently discharged from the hospital on January 25. Then admitted with CHF exacerbation. Has a EF of 55-60% patient has chronic lower extremities swelling from venous insufficiency. Patient now presents with shortness of breath for one day dry cough. No fever no chills. Also had some wheezing. Decreased appetite all tired and rundown. Admitted for the same.. Patient admitted with acute bronchitis with bronchospasm Today-feels better. Did eat better. Respiratory symptoms are better. Much less short of breath. Getting bronchodilators. Review of systems: Was done for constitutional, cardiovascular, GI, pulmonary. relevant finding as above Active Medications Acetaminophen (Tylenol Tab) 500 mg PO TID PRN PRN Reason: Pain Last Admin: 02/20/19 07:43 Dose: 500 mg Documented by: Albuterol/Ipratropium (Duoneb 0.5 Mg-3 Mg/3 Ml Soln) 3 ml INHALATION RT-QID [facility] Last Admin: 02/20/19 15:57 Dose: 3 ml Documented by: Albuterol/Ipratropium (Duoneb 0.5 Mg-3 Mg/3 Ml Soln) 3 ml INHALATION RT-Q4H PRN PRN Reason: Shortness Of Breath Or Wheezing Amlodipine Besylate (Norvasc) 5 mg PO DAILY [facility] Last Admin: 02/20/19 07:37 Dose: 5 mg Documented by: Bisacodyl (Dulcolax) 5 mg PO BID [facility] Last Admin: 02/20/19 07:37 Dose: 5 mg Documented by: Carbidopa/Levodopa (Sinemet Er 25-100) 1 each PO QID [facility] Last Admin: 02/20/19 12:28 Dose: 1 each Documented by: Cholecalciferol (Vitamin D3 (25 Mcg = 1000 Iu)) 2,000 unit PO DAILY [facility] Last Admin: 02/20/19 07:37 Dose: 2,000 unit Documented by: Miscellaneous Information (Coumadin Per Pharmacy) 0 each MISCELLANE DIRECTED PRN PRN Reason: PER PROTOCOL Myrbetriq ( (Mirabegron) 25 Mg) 25 mg PO DAILY [facility] Last Admin: 02/20/19 07:44 Dose: Not Given Documented by: Pantoprazole Sodium (Protonix) 40 mg PO BID [facility] Last Admin: 02/20/19 07:37 Dose: 40 mg Documented by: Prednisone () 40 mg PO DAILY [facility] Last Admin: 02/20/19 07:37 Dose: 40 mg Documented by: Senna/Docusate Sodium (Senokot-S) 1 each PO BID [facility] Last Admin: 02/20/19 07:37 Dose: 1 each Documented by: Spironolactone (Aldactone) 25 mg PO DAILY [facility] Last Admin: 02/20/19 07:37 Dose: 25 mg Documented by: Warfarin Sodium (Coumadin) 2.5 mg PO SuTuThSa@1800 [facility] Warfarin Sodium (Coumadin) 1.25 mg PO MoWeFr@1800 [facility] Warfarin Sodium (Coumadin) 5 mg PO ONCE@1800 ONE Stop: 02/20/19 18:01 Physical examination: VITAL SIGNS: 97.7, 86, 16, 147/68, 96% room air GENERAL: Propped up in bed, looking better,. EYES: Pupils equal. Conjunctiva normal. HEENT: External appearance of nose and ears normal, oral cavity grossly normal. NECK: JVD not raised; masses not palpable. HEART: First and second heart sounds are normal; edema present. LUNGS: Respiratory rate increased, decreased breath sounds ABDOMEN: Soft, nontender, liver spleen not palpable, no masses palpable. LYMPHATICS: No lymph nodes palpable in the axilla and neck. NEUROLOGICAL: Cranial nerves grossly intact; no facial asymmetry, decreased part of the lower extremity that is 4/5, baseline tremors MUSCULOSKELETAL evidence of osteoarthritis in both the hands and knees Investigations reviewed in the clinical context: INR 1.8 EKG tracing personally reviewed by me shows normal sinus rhythm. Doppler ultrasound of lower extreme D negative for DVT, and the last admission Chest [id number] personally reviewed by me shows no acute infiltrate Assessment: -Acute bronchospasm likely from acute bronchitis, improving -Chronic congestive heart failure from diastolic dysfunction EF 55-60% -Obesity BMI 34.5 -Chronic DVT for which patient chronically on Coumadin -GERD -Essential hypertension -Mild cognitive impairment from underlying Alzheimer's dementia -Primary Ruddy arthritis -Idiopathic Parkinson's disease -Chronic urinary incontinence -Chronic gait dysfunction uses a walker -Chronic lower extremity swelling from DVT that is from venous insufficiency Plan: Patient is doing better. Request to stay for 1 more day. Which is reasonable. Oral intake is improving. Hopefully can be discharged tomorrow
[2019-02-20] MEDS ORDERED: WARFARIN 5 MG TAB PO ONE (18:00)
[2019-02-20 22:06] VITALS: RESP 20
[2019-02-21 06:23] VITALS: BP 152/75; TEMP 97.6
[2019-02-21] MEDS: CHOLECALCIFEROL 1,000 UNIT TAB PO SCH (07:08)
[2019-02-21] MEDS: amLODIPine 5 MG TAB PO SCH (07:08)
[2019-02-21] MEDS: PANTOPRAZOLE 40 MG TABLET PO SCH (07:08)
[2019-02-21] MEDS: BISACODYL 5 MG TABLET.DR PO SCH (07:08)
[2019-02-21] MEDS: predniSONE 20 MG TAB PO SCH (07:08)
[2019-02-21] MEDS: SPIRONOLACTONE 25 MG TAB PO SCH (07:08)
[2019-02-21] MEDS: SENNOSIDES-DOCUSATE SODIUM 1 EACH TAB PO SCH (07:09)
[2019-02-21] MEDS: CARBIDOPA-LEVODOPA ER 25-100MG 1 EACH TABLET.ER PO SCH ×3 (07:12→17:52)
[2019-02-21] MEDS: IPRATROPIUM-ALBUTEROL 3 ML NEB INHALATION SCH ×3 (07:54→15:19)
[2019-02-21 08:19] LABS: INR 2.3 (<1.2); Prothrombin Time 22.2 sec (9.0-12.0)
[2019-02-21 15:31] VITALS: PULSE 80
[2019-02-21] MEDS ORDERED: WARFARIN 2.5 MG TAB PO SCH (18:00)
[2019-02-21] MEDS ORDERED: amLODIPine 5 MG TAB PO SCH (21:00)
--- NOTE | 2019-02-21 23:31 | P.DS ---
Providers Date of admission: 02/19/19 12:10 Expected date of discharge: 02/21/19 Attending physician: Tim Levy Primary care physician: Angel Benitez [facility] Hospital Course: Hospital course: This is a very pleasant 78-year-old patient of Dr. Benitez. Lives with her daughter. Chronic stable medical conditions include asthma hypertension Ruddy arthritis diverticulitis Parkinson's disease and arthritis. Patient was recently in the hospital and diagnosed with a UTI and cystitis. Patient also got chronic DVT and chronically on Coumadin. Patient was recently discharged from the hospital on January 25. Then admitted with CHF exacerbation. Has a EF of 55-60% patient has chronic lower extremities swelling from venous insufficiency. Patient now presents with shortness of breath for one day dry cough. No fever no chills. Also had some wheezing. Decreased appetite all tired and rundown. Admitted for the same.. Patient admitted with acute bronchitis with bronchospasm Responded well to burst of steroids and bronchodilators. Doing much better by the day of discharge. Earlier today discuss patient's care at length with the patient and the daughter by the bedside. Questions were answered. Discussion and discharge planning more than 35 minutes Physical examination: VITAL SIGNS: 97.6, 71, 20, 152/75, 92% room air GENERAL: Sitting up in a chair, comfortable. EYES: Pupils equal. Conjunctiva normal. HEENT: External appearance of nose and ears normal, oral cavity grossly normal. NECK: JVD not raised; masses not palpable. HEART: First and second heart sounds are normal; edema present. LUNGS: Respiratory rate increased, decreased breath sounds ABDOMEN: Soft, nontender, liver spleen not palpable, no masses palpable. Investigations reviewed in the clinical context: INR 2.3 EKG tracing personally reviewed by me shows normal sinus rhythm. Doppler ultrasound of lower extreme D negative for DVT, and the last admission Chest [id number] personally reviewed by me shows no acute infiltrate Assessment: -Acute bronchospasm likely from acute bronchitis, i -Chronic congestive heart failure from diastolic dysfunction EF 55-60% -Obesity BMI 34.5 -Chronic DVT for which patient chronically on Coumadin -GERD -Essential hypertension -Mild cognitive impairment from underlying Alzheimer's dementia -Primary Ruddy arthritis -Idiopathic Parkinson's disease -Chronic urinary incontinence -Chronic gait dysfunction uses a walker -Chronic lower extremity swelling from DVT that is from venous insufficiency Disposition: Home Patient Condition at Discharge: Stable Plan - Discharge Summary New Discharge Prescriptions: Continue Omeprazole [PriLOSEC] 20 mg PO BID Carbidopa-Levodopa ER 25-100Mg [Sinemet CR 25-100 mg] 1 tab PO QID Warfarin Sodium 2.5 mg PO SUTUTHSA@1600 Warfarin Sodium 1.25 mg PO MOWEFR@1600 Spironolactone [Aldactone] 25 mg PO DAILY tab Sennosides-Docusate Sodium [Senokot-S] 1 tab PO BID Mirabegron [Myrbetriq] 25 mg PO DAILY amLODIPine [Norvasc] 5 mg PO DAILY #10 tab Cholecalciferol [Vitamin D3 (25 Mcg = 1000 Iu)] 2,000 unit PO DAILY Bisacodyl [Dulcolax] 5 mg PO BID Acetaminophen Tab [Tylenol] 500 mg PO TID PRN PRN Reason: Pain Discharge Medication List Carbidopa-Levodopa ER 25-100Mg [Sinemet CR 25-100 mg] 1 tab PO QID 01/11/19 [History] Omeprazole [PriLOSEC] 20 mg PO BID 01/11/19 [History] Warfarin Sodium 1.25 mg PO MOWEFR@1600 01/11/19 [History] Warfarin Sodium 2.5 mg PO SUTUTHSA@1600 01/11/19 [History] Spironolactone [Aldactone] 25 mg PO DAILY tab 01/25/19 [Rx] Mirabegron [Myrbetriq] 25 mg PO DAILY 02/11/19 [History] Sennosides-Docusate Sodium [Senokot-S] 1 tab PO BID 02/11/19 [History] amLODIPine [Norvasc] 5 mg PO DAILY #10 tab 02/11/19 [Rx] Acetaminophen Tab [Tylenol] 500 mg PO TID PRN 02/19/19 [History] Bisacodyl [Dulcolax] 5 mg PO BID 02/19/19 [History] Cholecalciferol [Vitamin D3 (25 Mcg = 1000 Iu)] 2,000 unit PO DAILY 02/19/19 [History] Follow up Appointment(s)/Referral(s): Angel Benitez DO [Primary Care Provider] - 1-2 days Patient Instructions/Handouts: COPD (Chronic Obstructive Pulmonary Disease) (DC) Activity/Diet/Wound Care/Special Instructions: No change in meds. No new meds. No change in activity or diet. Discharge Disposition: HOME SELF-CARE
[2019-02-22] MEDS ORDERED: WARFARIN 1.25 MG TAB PO SCH (18:00)
== END 2019-02-21 19:23 | disposition home or self-care (01) ==
LOC: EC 08:58 → 4MS4W 12:10
PROVIDERS: ADMIT Hospitalist; ATTEND Hospitalist
DX: J98.01 Acute bronchospasm (principal); J44.9 Chronic obstructive pulmonary disease, unspecified; I11.0 Hypertensive heart disease with heart failure; I50.32 Chronic diastolic (congestive) heart failure; G30.9 Alzheimer's disease, unspecified; F02.80 Dementia in other diseases classified elsewhere, unspecified severity, without behavioral disturbance, psychotic disturbance, mood disturbance, and anxiety; E66.9 Obesity, unspecified; Z68.34 Body mass index [BMI] 34.0-34.9, adult; I82.509 Chronic embolism and thrombosis of unspecified deep veins of unspecified lower extremity; G20 Parkinson's disease; K21.9 Gastro-esophageal reflux disease without esophagitis; K57.90 Diverticulosis of intestine, part unspecified, without perforation or abscess without bleeding; I87.2 Venous insufficiency (chronic) (peripheral); M19.042 Primary osteoarthritis, left hand; M19.041 Primary osteoarthritis, right hand; M17.0 Bilateral primary osteoarthritis of knee; R32 Unspecified urinary incontinence; R26.9 Unspecified abnormalities of gait and mobility; Z79.01 Long term (current) use of anticoagulants; Z79.899 Other long term (current) drug therapy; Z88.7 Allergy status to serum and vaccine; Z88.0 Allergy status to penicillin; Z86.73 Personal history of transient ischemic attack (TIA), and cerebral infarction without residual deficits; Z98.49 Cataract extraction status, unspecified eye; Z96.1 Presence of intraocular lens; Z87.19 Personal history of other diseases of the digestive system; Z86.711 Personal history of pulmonary embolism; Z90.49 Acquired absence of other specified parts of digestive tract; Z90.710 Acquired absence of both cervix and uterus; Z87.440 Personal history of urinary (tract) infections; Z82.5 Family history of asthma and other chronic lower respiratory diseases; Z80.0 Family history of malignant neoplasm of digestive organs; Z82.49 Family history of ischemic heart disease and other diseases of the circulatory system; Z80.52 Family history of malignant neoplasm of bladder
CPT/HCPCS: 96376; 96374; 99285; 36415; 94640 ×6; 93005; 83880; 80053; 84484; 85025; 85610 ×3; 85730; 81003; 71046; G0378 ×3; J2930; J7512 ×2

== ENCOUNTER 2019-03-09 12:42 | Emergency (ER) | payer MEDICARE, OTHER ==
--- NOTE | 2019-03-09 13:17 | ED ---
Female Urogenital HPI - General Chief complaint: Urogenital Stated complaint: POSS UTI, SOB Time Seen by Provider: 03/09/19 13:05 Source: patient Mode of arrival: wheelchair Limitations: no limitations - History of Present Illness Initial comments: Patient is a 78-year-old female is any to the emergency Department with complaints of burning with urination 2 days. Patient states she also has some lower abdominal pain and pressure and has been going more frequently. Patient has had a UTI in the past and this feels similar. Patient denies fever, chills, shortness of breath. Patient has past medical history of Parkinson's and overactive bladder. No other complaints at this time. Patient is here with her daughter. - Related Data Home Medications Medication Instructions Recorded Confirmed Carbidopa-Levodopa ER 25-100Mg 1 tab PO QID 01/11/19 03/09/19 [Sinemet CR 25-100 mg] Omeprazole [PriLOSEC] 20 mg PO BID 01/11/19 03/09/19 Warfarin Sodium 1.25 mg PO MOTUWE 01/11/19 03/09/19 Warfarin Sodium 2.5 mg PO SUTHFRSA 01/11/19 03/09/19 Mirabegron [Myrbetriq] 25 mg PO DAILY 02/11/19 03/09/19 Sennosides-Docusate Sodium 1 tab PO BID 02/11/19 03/09/19 [Senokot-S] Acetaminophen Tab [Tylenol] 500 mg PO TID PRN 02/19/19 03/09/19 Bisacodyl [Dulcolax] 5 mg PO BID 02/19/19 03/09/19 Cholecalciferol [Vitamin D3 (25 2,000 unit PO DAILY 02/19/19 03/09/19 Mcg = 1000 Iu)] Lisinopril-Hctz 10-12.5 mg 1 tab PO DAILY 03/09/19 03/09/19 [Zestoretic 10-12.5] Previous Rx's Medication Instructions Recorded Spironolactone [Aldactone] 25 mg PO DAILY tab 01/25/19 Levofloxacin 250 mg PO DAILY 3 Days #3 tablet 03/09/19 Allergies Allergy/AdvReac Type Severity Reaction Status Date / Time Influenza Virus Vaccines Allergy Swelling Verified 03/09/19 13:46 Penicillins Allergy Anaphylaxis Verified 03/09/19 13:46 Review of Systems ROS Statement: Those systems with pertinent positive or pertinent negative responses have been documented in the HPI. ROS Other: All systems not noted in ROS Statement are negative. Past Medical History Past Medical History: Asthma, CVA/TIA, Deep Vein Thrombosis (DVT), GERD/Reflux, Hypertension, Memory Impairment, Musculoskeletal Disorder, Neurologic Disorder, Osteoarthritis (OA) Additional Past Medical History / Comment(s): Ulcerative colitis, diverti culitis, parkinson's disease, CVA which pt was unaware of having-showed on cat scan, several DVTs bilateral legs and pt states since she has had intermittent bilateral ankle edema, thrombophlebitis, PE-pt cannot recall laterallity, generalized arthritis, urinaty leakage, a few UTIs. History of Any Multi-Drug Resistant Organisms: None Reported Past Surgical History: Cholecystectomy, Hysterectomy, Orthopedic Surgery, Tubal Ligation Additional Past Surgical History / Comment(s): L shoulder injury with surgery to repair, removals of DVTs bilateral legs, cataract removal/lens implants, colonoscopies. Past Anesthesia/Blood Transfusion Reactions: Postoperative Nausea & Vomiting (PONV) Additional Past Anesthesia/Blood Transfusion Reaction / Comment(s): Pt received blood with hysterectomy without reaction. Past Psychological History: Anxiety Smoking Status: Never smoker Past Alcohol Use History: None Reported Past Drug Use History: None Reported - Past Family History Father Family Medical History: Asthma, Cancer, COPD Additional Family Medical History / Comment(s): Gallbladder cancer Mother Family Medical History: Myocardial Infarction ([place]) Additional Family Medical History / Comment(s): Mother of a [place] at the age of 48 yrs. Sister(s) Additional Family Medical History / Comment(s): Sister of a blood clot at age 38 yrs-pt cannot recall specifics. General Exam - General Exam Comments Initial Comments: GENERAL: Well-appearing, well-nourished and in no acute distress. HEAD: Atraumatic, normocephalic. EYES: Pupils equal round and reactive to light, extraocular movements intact, sclera anicteric, conjunctiva are normal. ENT: TMs normal, nares patent, oropharynx clear without exudates. Moist mucous membranes. NECK: Normal range of motion, supple without lymphadenopathy or JVD. LUNGS: Breath sounds clear to auscultation bilaterally and equal. No wheezes rales or rhonchi. HEART: Regular rate and rhythm without murmurs, rubs or gallops. ABDOMEN: Suprapubic tenderness,Soft, normoactive bowel sounds. No guarding, no rebound. No masses appreciated. : Deferred EXTREMITIES: Normal range of motion, no pitting or edema. No clubbing or cyanosis. NEUROLOGICAL: Cranial nerves II through XII grossly intact. Normal speech, normal gait. PSYCH: Normal mood, normal affect. SKIN: Warm, Dry, normal turgor, no rashes or lesions noted. Limitations: no limitations Course Vital Signs 03/09/19 13:00 Temperature 98.4 F Pulse Rate 74 Respiratory 18 Rate Blood Pressure 100/55 O2 Sat by Pulse 93 L Oximetry Medical Decision Making - Medical Decision Making Patient is a 78-year-old female presenting with UTI type symptoms 2-3 days. Patient describes burning with urination, lower abdominal pressure and pain. Patient's vital signs are stable, afebrile. On exam, patient has tenderness of the suprapubic area. Rest of exam is unremarkable. CBC, CMP are within normal limits. UA shows 2+ protein, positive nitrate, many wbc's. Culture will be obtained. Patient will be given 1 g of Rocephin and started on levofloxacin. Patient is stable for discharge. Patient is in agreement with this plan of care. Return parameters were discussed with the patient and her daughter and they both verbalize understanding. Case discussed with Dr. Barry. - Lab Data Result diagrams: 03/09/19 13:35 03/09/19 13:35 Lab Results 03/09/19 03/09/19 03/09/19 Range/Units 13:35 13:35 13:35 WBC 7.2 (3.8-10.6) k/uL RBC 4.57 (3.80-5.40) m/uL Hgb 13.3 (11.4-16.0) gm/dL Hct 40.2 (34.0-46.0) % MCV 87.9 (80.0-100.0) fL MCH 29.0 (25.0-35.0) pg MCHC 33.0 (31.0-37.0) g/dL RDW 14.5 (11.5-15.5) % Plt Count 311 (150-450) k/uL Neutrophils % 78 % Lymphocytes % 14 % Monocytes % 5 % Eosinophils % 1 % Basophils % 1 % Neutrophils # 5.6 (1.3-7.7) k/uL Lymphocytes # 1.0 (1.0-4.8) k/uL Monocytes # 0.3 (0-1.0) k/uL Eosinophils # 0.1 (0-0.7) k/uL Basophils # 0.0 (0-0.2) k/uL Sodium 138 (137-145) mmol/L Potassium 3.8 (3.5-5.1) mmol/L Chloride 102 (98-107) mmol/L Carbon Dioxide 27 (22-30) mmol/L Anion Gap 9 mmol/L BUN 26 H (7-17) mg/dL Creatinine 0.75 (0.52-1.04) mg/dL Est GFR (CKD-EPI)AfAm 88 (>60 ml/min/1.73 sqM) Est GFR (CKD-EPI)NonAf 77 (>60 ml/min/1.73 sqM) Glucose 111 H (74-99) mg/dL Calcium 9.4 (8.4-10.2) mg/dL Total Bilirubin 0.9 (0.2-1.3) mg/dL AST 16 (14-36) U/L ALT 10 (9-52) U/L Alkaline Phosphatase 44 (38-126) U/L Total Protein 7.0 (6.3-8.2) g/dL Albumin 4.1 (3.5-5.0) g/dL Urine Color Yellow Urine Appearance Turbid H (Clear) Urine pH 5.5 (5.0-8.0) Ur Specific [place] 1.026 (1.001-1.035) Urine Protein 2+ H (Negative) Urine Glucose (UA) Negative (Negative) Urine Ketones Trace H (Negative) Urine Blood Moderate H (Negative) Urine Nitrite Positive H (Negative) Urine Bilirubin Negative (Negative) Urine Urobilinogen 2.0 (<2.0) mg/dL Ur Leukocyte Esterase Large H (Negative) Urine RBC 59 H (0-5) /hpf Urine WBC Clumps Many H (None) /hpf Ur Squamous Epith Cells 9 H (0-4) /hpf Urine Bacteria Rare H (None) /hpf Urine Mucus Few H (None) /hpf Disposition Clinical Impression: Urinary tract infection Disposition: HOME SELF-CARE Condition: Stable Instructions (If sedation given, give patient instructions): Urinary Tract Infection in Women (ED) Additional Instructions: Please return to the Emergency Department if symptoms worsen or any other concerns. Prescriptions: Levofloxacin 250 mg PO DAILY 3 Days #3 tablet Is patient prescribed a controlled substance at d/c from ED?: No Referrals: Angel Benitez DO [Primary Care Provider] - 1-2 days
[2019-03-09 13:51] LABS: Basophils % (A) 1 %; Eosinophils # (A) 0.1 k/uL (0-0.7); Eosinophils % (A) 1 %; HCT 40.2 % (34.0-46.0); HGB 13.3 gm/dL (11.4-16.0); Lymphocytes % (A) 14 %; MCV 87.9 fL (80.0-100.0); Mean Platelet Volume 6.6; Monocytes # (A) 0.3 k/uL (0-1.0); Monocytes % (A) 5 %; Neutrophils # (A) 5.6 k/uL (1.3-7.7); Neutrophils % (A) 78 %; Platelet Count 311 k/uL (150-450); RBC 4.57 m/uL (3.80-5.40); RDW 14.5 % (11.5-15.5); WBC 7.2 k/uL (3.8-10.6)
[2019-03-09 13:58] LABS: Albumin 4.1 g/dL (3.5-5.0); Calcium 9.4 mg/dL (8.4-10.2); Potassium 3.8 mmol/L (3.5-5.1); Total Bilirubin 0.9 mg/dL (0.2-1.3)
[2019-03-09 14:35] LABS: Appearance,Urine Turbid (Clear); Bacteria,Urine Rare /hpf; Bilirubin,Urine Negative (Negative); Blood,Urine Moderate (Negative); Color,Urine Yellow; Glucose,Urine (UA) Negative (Negative); Ketones,Urine Trace (Negative); Leukocyte Esterase,Urine Large (Negative); Mucus,Urine Few /hpf; Nitrite,Urine Positive (Negative); PH, Urine 5.5 (5.0-8.0); Protein,Urine 2+ (Negative); RBC,Urine 59 /hpf (0-5); Specific Gravity,Urine 1.026 (1.001-1.035); Squamous Epithelial Cell,Urine 9 /hpf (0-4)
[2019-03-09 16:00] VITALS: BP 149/67; PULSE 67; RESP 16; TEMP 98
== END 2019-03-09 16:00 | disposition home or self-care (01) ==
LOC: EC 12:42
DX: N39.0 Urinary tract infection, site not specified (principal); K21.9 Gastro-esophageal reflux disease without esophagitis; I10 Essential (primary) hypertension; G20 Parkinson's disease; Z79.01 Long term (current) use of anticoagulants; Z79.899 Other long term (current) drug therapy; Z88.0 Allergy status to penicillin; Z88.7 Allergy status to serum and vaccine; Z86.718 Personal history of other venous thrombosis and embolism; Z86.73 Personal history of transient ischemic attack (TIA), and cerebral infarction without residual deficits; Z90.49 Acquired absence of other specified parts of digestive tract; Z90.710 Acquired absence of both cervix and uterus
CPT/HCPCS: 36415; 80053; 85025; 81001; 87086; 99283; 96365; J0696

== ENCOUNTER 2019-03-11 23:24 | Inpatient (IN) | payer MEDICARE, OTHER ==
[2019-03-11] MEDS ORDERED: NALOXONE 0.4 MG/ML 1 ML VIAL IV PRN (23:54)
[2019-03-12] MEDS ORDERED: ERTAPENEM 1 GM in SODIUM CHLORIDE 0.9% 50 ML IVPB ONE ×2
--- NOTE | 2019-03-12 00:49 | ED ---
General Adult HPI - General Chief complaint: Recheck/Abnormal Lab/Rx Stated complaint: Recheck, Antibiotics Time Seen by Provider: 03/11/19 23:37 Source: patient Mode of arrival: ambulatory Limitations: no limitations - History of Present Illness Initial comments: Astrid is a pleasant 78-year-old female who was seen and evaluated at our emergency department 2 days ago. At that time the patient was diagnosed with a urinary tract infection and discharged home on oral antibiotics, patient reports she is continuing to have fevers and chills, her urine culture resulted with ESBL thus the patient was contacted and advised to return to the hospital for IV antibiotics. - Related Data Home Medications Medication Instructions Recorded Confirmed Carbidopa-Levodopa ER 25-100Mg 1 tab PO QID 01/11/19 03/11/19 [Sinemet CR 25-100 mg] Omeprazole [PriLOSEC] 20 mg PO BID 01/11/19 03/11/19 Warfarin Sodium 1.25 mg PO MOTUWE 01/11/19 03/11/19 Warfarin Sodium 2.5 mg PO SUTHFRSA 01/11/19 03/11/19 Mirabegron [Myrbetriq] 25 mg PO HS 02/11/19 03/11/19 Sennosides-Docusate Sodium 1 tab PO BID 02/11/19 03/11/19 [Senokot-S] Acetaminophen Tab [Tylenol] 500 mg PO TID PRN 02/19/19 03/11/19 Bisacodyl [Dulcolax] 5 mg PO BID 02/19/19 03/11/19 Cholecalciferol [Vitamin D3 (25 2,000 unit PO DAILY 02/19/19 03/11/19 Mcg = 1000 Iu)] Lisinopril-Hctz 10-12.5 mg 1 tab PO DAILY 03/09/19 03/11/19 [Zestoretic 10-12.5] Previous Rx's Medication Instructions Recorded Spironolactone [Aldactone] 25 mg PO DAILY tab 01/25/19 Levofloxacin 250 mg PO DAILY 3 Days #3 tablet 03/09/19 Allergies Allergy/AdvReac Type Severity Reaction Status Date / Time Influenza Virus Vaccines Allergy Swelling Verified 03/11/19 23:53 Penicillins Allergy Anaphylaxis Verified 03/11/19 23:53 Review of Systems ROS Statement: Those systems with pertinent positive or pertinent negative responses have been documented in the HPI. ROS Other: All systems not noted in ROS Statement are negative. Past Medical History Past Medical History: Asthma, CVA/TIA, Deep Vein Thrombosis (DVT), GERD/Reflux, Hypertension, Memory Impairment, Musculoskeletal Disorder, Neurologic Disorder, Osteoarthritis (OA) Additional Past Medical History / Comment(s): Ulcerative colitis, diverticulitis, parkinson's disease, CVA which pt was unaware of having-showed on cat scan, several DVTs bilateral legs and pt states since she has had intermittent bilateral ankle edema, thrombophlebitis, PE-pt cannot recall laterallity, generalized arthritis, urinaty leakage, a few UTIs. History of Any Multi-Drug Resistant Organisms: ESBL Date of last positivie culture/infection: 03/09/2019 MDRO Source:: Urine Past Surgical History: Cholecystectomy, Hysterectomy, Orthopedic Surgery, Tubal Ligation Additional Past Surgical History / Comment(s): L shoulder injury with surgery to repair, removals of DVTs bilateral legs, cataract removal/lens implants, colonoscopies. Past Anesthesia/Blood Transfusion Reactions: Postoperative Nausea & Vomiting (PONV) Additional Past Anesthesia/Blood Transfusion Reaction / Comment(s): Pt received blood with hysterectomy without reaction. Past Psychological History: Anxiety Smoking Status: Never smoker Past Alcohol Use History: None Reported Past Drug Use History: None Reported - Past Family History Father Family Medical History: Asthma, Cancer, COPD Additional Family Medical History / Comment(s): Gallbladder cancer Mother Family Medical History: Myocardial Infarction ([place]) Additional Family Medical History / Comment(s): Mother of a [place] at the age of 48 yrs. Sister(s) Additional Family Medical History / Comment(s): Sister of a blood clot at age 38 yrs-pt cannot recall specifics. General Exam - General Exam Comments Initial Comments: Physical Exam GENERAL: Patient is well-developed and well-nourished. HENT: Normocephalic, Atraumatic. EYES: PERRL, EOMI PULMONARY: Unlabored respirations CARDIOVASCULAR: RRR ABDOMEN: Tenderness to palpation of suprapubic region SKIN: Skin is clear with no lesions or rashes and otherwise unremarkable. : Deferred NEUROLOGIC: Parkinsonian MUSCULOSKELETAL: Normal extremities with adequate strength and full range of motion. No lower extremity swelling or edema. No calf tenderness. PSYCHIATRIC: Normal psychiatric evaluation Limitations: no limitations Course Vital Signs 03/11/19 23:32 Temperature 97.8 F Pulse Rate 74 Respiratory 18 Rate Blood Pressure 142/74 O2 Sat by Pulse 96 Oximetry Medical Decision Making - Medical Decision Making Patient's urine culture results resulted with ESBL, patient was contacted by nursing staff and return to the emergency department, upon arrival patient reports she still having fevers and chills A sepsis workup was initiated including blood and urine cultures Review of the patient's chart reveals she had ESBL but also has a penicillin riley phylaxis. Decision was made to treat the patient with IV Invanz Patient will be admitted to Dr. Levy with Dr. Pruett for infectious disease consult Disposition Clinical Impression: UTI due to extended-spectrum beta lactamase (ESBL) producing Escherichia coli Disposition: ADMITTED IP TO THIS HOSP Condition: Stable Is patient prescribed a controlled substance at d/c from ED?: No Referrals: Angel Benitez DO [Primary Care Provider] - 1-2 days
[2019-03-12 01:17] LABS: Basophils # (A) 0.1 k/uL (0-0.2); Basophils % (A) 1 %; Eosinophils # (A) 0.1 k/uL (0-0.7); Eosinophils % (A) 2 %; HCT 39.8 % (34.0-46.0); HGB 13.3 gm/dL (11.4-16.0); Lymphocytes # (A) 2.2 k/uL (1.0-4.8); Lymphocytes % (A) 31 %; MCH 29.6 pg (25.0-35.0); MCHC 33.5 g/dL (31.0-37.0); MCV 88.3 fL (80.0-100.0); Mean Platelet Volume 6.5; Monocytes # (A) 0.4 k/uL (0-1.0); Monocytes % (A) 6 %; Neutrophils # (A) 4.1 k/uL (1.3-7.7); Neutrophils % (A) 58 %; Platelet Count 315 k/uL (150-450); RBC 4.51 m/uL (3.80-5.40); RDW 14.3 % (11.5-15.5); WBC 7.1 k/uL (3.8-10.6)
[2019-03-12 01:22] LABS: Appearance,Urine Cloudy (Clear); Bilirubin,Urine Negative (Negative); Blood,Urine Negative (Negative); Color,Urine Yellow; Glucose,Urine (UA) Negative (Negative); Hyaline Casts,Urine 4 /lpf (0-2); Ketones,Urine Negative (Negative); Leukocyte Esterase,Urine Small (Negative); Mucus,Urine Rare /hpf; Nitrite,Urine Negative (Negative); Protein,Urine Negative (Negative); Specific Gravity,Urine 1.014 (1.001-1.035); Squamous Epithelial Cell,Urine 2 /hpf (0-4); Urobilinogen,Urine <2.0 mg/dL (<2.0); WBC,Urine 11 /hpf (0-5)
[2019-03-12 01:28] LABS: ALT <6 U/L (9-52); AST 15 U/L (14-36); African American GFR (CKD) 69 (>60 ml/min/1.73 sqM); Albumin 4.3 g/dL (3.5-5.0); Alkaline Phosphatase 50 U/L (38-126); Anion Gap 9 mmol/L; Blood Urea Nitrogen 25 mg/dL (7-17); Calcium 9.6 mg/dL (8.4-10.2); Carbon Dioxide 28 mmol/L (22-30); Chloride 100 mmol/L (98-107); Glucose 106 mg/dL (74-99); INR 2.4 (<1.2); Partial Thromboplastin Time 29.4 sec (22.0-30.0); Potassium 3.8 mmol/L (3.5-5.1); Prothrombin Time 22.9 sec (9.0-12.0); Sodium 137 mmol/L (137-145); Total Bilirubin 0.5 mg/dL (0.2-1.3); Total Protein 7.3 g/dL (6.3-8.2)
[2019-03-12] MEDS ORDERED: ACETAMINOPHEN TAB 325 MG TAB PO STA (04:35)
[2019-03-12] MEDS: SENNOSIDES-DOCUSATE SODIUM 1 EACH TAB PO SCH ×2 (10:16→20:27)
[2019-03-12] MEDS: PANTOPRAZOLE 40 MG TABLET PO SCH ×2 (10:16→20:28)
[2019-03-12] MEDS: LISINOPRIL-HCTZ 10-12.5 MG 1 EACH TAB PO SCH (10:16)
[2019-03-12] MEDS: SPIRONOLACTONE 25 MG TAB PO SCH (10:16)
[2019-03-12] MEDS: BISACODYL 5 MG TABLET.DR PO SCH ×3 (10:16→20:27)
[2019-03-12] MEDS: CHOLECALCIFEROL 1,000 UNIT TAB PO SCH (10:16)
[2019-03-12] MEDS: CARBIDOPA-LEVODOPA ER 25-100MG 1 EACH TABLET.ER PO SCH ×4 (10:16→20:28)
[2019-03-12] MEDS: ACETAMINOPHEN TAB 500 MG TAB PO PRN ×2 (12:53→20:27)
--- NOTE | 2019-03-12 16:36 | P.HPIM ---
History of Present Illness H&P Date: 03/12/19 Chief Complaint: Urinary frequency and burning History of presenting complaint: This is a very pleasant 78-year-old patient of Dr. Benitez. Lives with her daughter. Chronic stable medical conditions include asthma hypertension Ruddy arthritis diverticulosis Parkinson's disease and arthritis. Patient also got chronic DVT and chronically on Coumadin. CHF with EF of 55-60% patient has chronic lower extremities swelling from venous insufficiency. Patient's had previous UTIs. Patient was in the hospital 2 days ago in the ER with fever chills urinary symptoms was diagnosed of a UTI. Was given a dose of IV ceftriaxone and discharged home on antibiotic. Patient started taking the same. Patient's urine culture came back showing E. coli with ESBL. And patient was c alled to get admitted. Patient continues to urine symptoms with frequency. Patient also had some lower belly pain. Also had some fever and chills at home. Appetite has not been good. Patient's current a dose of Invanz in the ER. And admitted for the same. Review of systems: GEN.: Tired EYES: None HEENT: None NECK: None RESPIRATORY: None CARDIOVASCULAR: As above GASTROINTESTINAL: Heartburn GENITOURINARY: As above MUSCULOSKELETAL: Pain in the joints LYMPHATICS: None HEMATOLOGICAL: None PSYCHIATRY: None NEUROLOGICAL: Uses a walker Past medical history: Chronic DVT for which patient is on Coumadin, GERD, hypertension, mild cognitive impairment, Ruddy arthritis, Parkinson disease, urinary incontinence, CHF with EF of 55 to 60%, gait dysfunction uses a walker, lower extremity venous insufficiency Social history: Lives with daughter. Does have a walker. No smoking or alcohol. Family history: Asthma COPD, bladder cancer Physical examination: VITAL SIGNS: 97.8, 74, 18, 142/74, 96% room air GENERAL: BMI 33.7, sitting up, not in distress,. EYES: Pupils equal. Conjunctiva normal. HEENT: External appearance of nose and ears normal, oral cavity grossly normal. NECK: JVD not raised; masses not palpable. HEART: First and second heart sounds are normal; edema present. LUNGS: Respiratory rate increased, decreased breath sounds ABDOMEN: Soft, nontender, liver spleen not palpable, no masses palpable. LYMPHATICS: No lymph nodes palpable in the axilla and neck. PSYCH: Alert and oriented x3; mood and affect normal. NEUROLOGICAL: Cranial nerves grossly intact; no facial asymmetry, decreased part of the lower extremity that is 4/5, baseline tremors MUSCULOSKELETAL evidence of osteoarthritis in both the hands and knees Investigations reviewed in the clinical context: White count 7.1 hemoglobin 13.3 INR 2.4in 3.8 creatinine 0.93 UA positive for leukoesterase, WBC 11, squamous epithelial to Urine culture from March 09 showing E. coli with ESBL Assessment: -Acute UTI with cystitis recurrent with now cultures growing E. coli/ESBL -Chronic congestive heart failure from diastolic dysfunction EF 55-60% -Obesity BMI 34.5 -Chronic DVT for which patient chronically on Coumadin -GERD -Essential hypertension -Mild cognitive impairment from underlying Alzheimer's dementia -Primary osteoarthritis -Idiopathic Parkinson's disease -Chronic urinary stress incontinence -Chronic gait dysfunction uses a walker -Chronic lower extremity swelling from DVT that is from venous insufficiency Plan: Patient is given a dose of IV Invanz in the ER. We'll repeat a dose today. Patient to be distressed over to Macrobid, if no fever or white count R hemodynamically stable. Home medications resumed. Care was discussed with the patient. Questions were answered. Past Medical History Past Medical History: Asthma, Heart Failure, CVA/TIA, Deep Vein Thrombosis (DVT), GERD/Reflux, Hypertension, Memory Impairment, Musculoskeletal Disorder, Neurologic Disorder, Osteoarthritis (OA) Additional Past Medical History / Comment(s): Ulcerative colitis, diverticulitis, parkinson's disease, CVA which pt was unaware of having-showed on cat scan, several DVTs bilateral legs and pt states since she has had intermittent bilateral ankle edema, thrombophlebitis, PE-pt cannot recall laterallity, generalized arthritis, urinary leakage, a few UTIs. History of Any Multi-Drug Resistant Organisms: ESBL Date of last positivie culture/infection: 03/09/2019 MDRO Source:: Urine Past Surgical History: Cholecystectomy, Hysterectomy, Orthopedic Surgery, Tubal Ligation Additional Past Surgical History / Comment(s): L shoulder injury with surgery to repair, removals of DVTs bilateral legs, cataract removal/lens implants, colonoscopies. Past Anesthesia/Blood Transfusion Reactions: Postoperative Nausea & Vomiting (PONV) Additional Past Anesthesia/Blood Transfusion Reaction / Comment(s): Pt received blood with hysterectomy without reaction. Past Psychological History: Anxiety Additional Psychological History / Comment(s): Pt resides with her daughter. She moved here from [place] to live with her steven 3 yrs ago. She ambulates with a walker. She no longer drives, her steven takes her to app. She is otherwise independent. Smoking Status: Never smoker Past Alcohol Use History: None Reported Past Drug Use History: None Reported - Past Family History Father Family Medical History: Asthma, Cancer, COPD Additional Family Medical History / Comment(s): Gallbladder cancer Mother Family Medical History: Myocardial Infarction ([place]) Additional Family Medical History / Comment(s): Mother of a [place] at the age of 48 yrs. Sister(s) Additional Family Medical History / Comment(s): Sister of a blood clot at age 38 yrs-pt cannot recall specifics. Medications and Allergies Home Medications Medication Instructions Recorded Confirmed Type Carbidopa-Levodopa ER 25-100Mg 1 tab PO QID 01/11/19 03/11/19 History [Sinemet CR 25-100 mg] Omeprazole [PriLOSEC] 20 mg PO BID 01/11/19 03/11/19 History Warfarin Sodium 1.25 mg PO MOTUWE 01/11/19 03/11/19 History Warfarin Sodium 2.5 mg PO SUTHFRSA 01/11/19 03/11/19 History Spironolactone [Aldactone] 25 mg PO DAILY tab 01/25/19 03/11/19 Rx Mirabegron [Myrbetriq] 25 mg PO HS 02/11/19 03/11/19 History Sennosides-Docusate Sodium 1 tab PO BID 02/11/19 03/11/19 History [Senokot-S] Acetaminophen Tab [Tylenol] 500 mg PO TID PRN 02/19/19 03/11/19 History Bisacodyl [Dulcolax] 5 mg PO BID 02/19/19 03/11/19 History Cholecalciferol [Vitamin D3 (25 2,000 unit PO DAILY 02/19/19 03/11/19 History Mcg = 1000 Iu)] Levofloxacin 250 mg PO DAILY 3 Days #3 tablet 03/09/19 03/11/19 Rx Lisinopril-Hctz 10-12.5 mg 1 tab PO DAILY 03/09/19 03/11/19 History [Zestoretic 10-12.5] Allergies Allergy/AdvReac Type Severity Reaction Status Date / Time Influenza Virus Vaccines Allergy Swelling Verified 03/11/19 23:53 Penicillins Allergy Anaphylaxis Verified 03/11/19 23:53 Physical Exam Vitals: Vital Signs Temp Pulse Pulse Resp BP BP Pulse Ox 03/12/19 14:31 96.9 F L 68 16 106/49 92 L 03/12/19 10:23 176/88 03/12/19 10:05 97.6 F 65 16 175/80 94 L 03/12/19 08:30 98.7 F 81 20 138/61 99 03/12/19 04:36 98.1 F 67 16 148/62 95 03/11/19 23:32 97.8 F 74 18 142/74 96 Intake and Output 03/12/19 03/12/19 03/12/19 06:59 14:59 22:59 Intake Total 200 Balance 200 Intake: Oral 200 Other: Voiding Method Toilet # Voids 4 Weight 86.183 kg Results CBC & Chem 7: 03/12/19 01:00 03/12/19 01:00 Labs: Abnormal Lab Results - Last 24 Hours (Table) 03/12/19 03/12/19 03/12/19 Range/Units 01:00 01:00 01:00 PT 22.9 H (9.0-12.0) sec INR 2.4 H (<1.2) BUN 25 H (7-17) mg/dL Glucose 106 H (74-99) mg/dL ALT <6 L (9-52) U/L Urine Appearance Cloudy H (Clear) Ur Leukocyte Esterase Small H (Negative) Urine WBC 11 H (0-5) /hpf Hyaline Casts 4 H (0-2) /lpf Urine Mucus Rare H (None) /hpf Microbiology - Last 24 Hours (Table) 03/12/19 01:00 Urine Culture - Preliminary Urine,Voided Thrombosis Risk Factor Assmnt - Choose All That Apply Any of the Below Risk Factors Present?: Yes Each Factor Represents 1 point: Abnormal pulmonary function (COPD), Heart failure (<1month), Obesity (BMI >25), Swollen legs (current) Other Risk Factors: Yes Each Risk Factor Represents 3 Points: Age 75 years or older, Family history of DVT/PE, History of DVT/PE Other congenital or acquired thrombophilia - If yes, enter type in comment: No Thrombosis Risk Factor Assessment Total Risk Factor Score: 13 Thrombosis Risk Factor Assessment Level: High Risk
[2019-03-12] MEDS: WARFARIN 2.5 MG TAB PO SCH (18:02)
[2019-03-12] MEDS: ERTAPENEM 1 GM in SODIUM CHLORIDE 0.9% 50 ML IVPB SCH (21:32)
[2019-03-12] MEDS ORDERED: ERTAPENEM 1 GM in SODIUM CHLORIDE 0.9% 50 ML IVPB SCH (22:00)
--- NOTE | 2019-03-12 23:22 | P.CONS ---
History of Present Illness - Reason for Consult Consult date: 03/12/19 - Chief Complaint Fever - History of Present Illness 78-year-old female with history of her family in the outpatient setting relates that she was not feeling well she developed fever dysuria and increasing weakness and presented to the emergency center a few days prior. She had workup and was placed on levofloxacin for a urinary tract infection. She has known difficulties with prior urinary infections and urinary incontinence. Despite receiving antibiotic therapy emergency center she continue to have some fever and chill weakness generalized malaise and consequently she was brought back to the emergency center and has been admitted with evidence of a drug- resistant urinary tract infection and the consult was requested. Review of Systems Patient feels weak and ill and has had fever HEENT:Denies headache or acute visual change. Denies sinus or mouth discomforts. Denies neck stiffness or pain. Denies significant oral cavity pain. Denies difficulty on swallowing. Lungs: Denies significant shortness of breath, cough, sputum production, or h emoptysis. Cardiovascular: Denies significant shortness of breath, chest pain, chest wall pain, orthopnea, dyspnea on exertion, syncope Gastrointestinal:Denies nausea, vomiting, diarrhea, constipation, hematemesis, melena, hematochezia. No no significant change of bowel habit noticed. Musculoskeletal: Has had some generalized malaise and pains Skin: Denies new rash or lesions. No new ulcers or wounds are related.. Neuro: Improving mental status after hydration and some antibiotic therapy Psychiatric:Denies anxiety or depression. Endocrine: Has had fatigue weight is been stable Past Medical History Past Medical History: Asthma, Heart Failure, CVA/TIA, Deep Vein Thrombosis (DVT), GERD/Reflux, Hypertension, Memory Impairment, Musculoskeletal Disorder, Neurologic Disorder, Osteoarthritis (OA) Additional Past Medical History / Comment(s): Ulcerative colitis, diverticulitis, parkinson's disease, CVA which pt was unaware of having-showed on cat scan, several DVTs bilateral legs and pt states since she has had inte rmittent bilateral ankle edema, thrombophlebitis, PE-pt cannot recall laterallity, generalized arthritis, urinary leakage, a few UTIs. History of Any Multi-Drug Resistant Organisms: ESBL Year Discovered:: 03/09/2019 MDRO Source:: Urine Past Surgical History: Cholecystectomy, Hysterectomy, Orthopedic Surgery, Tubal Ligation Additional Past Surgical History / Comment(s): L shoulder injury with surgery to repair, removals of DVTs bilateral legs, cataract removal/lens implants, colonoscopies. Past Anesthesia/Blood Transfusion Reactions: Postoperative Nausea & Vomiting (PONV) Additional Past Anesthesia/Blood Transfusion Reaction / Comm: Pt received blood with hysterectomy without reaction. Past Psychological History: Anxiety Additional Psychological History / Comment(s): Pt resides with her daughter. She moved here from [place] to live with her steven 3 yrs ago. She ambulates with a walker. She no longer drives, her steven takes her to [employer]. She is otherwise independent. Retired. Nonsmoker. The experience. Final exposures. No travel Smoking Status: Never smoker Past Alcohol Use History: None Reported Past Drug Use History: None Reported - Past Family History Father Family Medical History: Asthma, Cancer, COPD Additional Family Medical History / Comment(s): Gallbladder cancer Mother Family Medical History: Myocardial Infarction (OR) Additional Family Medical History / Comment(s): Mother of a OR at the age of 48 yrs. Sister(s) Additional Family Medical History / Comment(s): Sister of a blood clot at age 38 yrs-pt cannot recall specifics. Medications and Allergies Home Medications and Allergies Comment(s): Current Medications Acetaminophen (Tylenol Tab) 500 mg PO TID PRN PRN Reason: Pain Last Admin: 03/12/19 20:27 Dose: 500 mg Documented by: Bisacodyl (Dulcolax) 5 mg PO BID [facility] Last Admin: 03/12/19 20:27 Dose: 5 mg Documented by: Carbidopa/Levodopa (Sinemet Er 25-100) 1 each PO QID [facility] Last Admin: 03/12/19 20:28 Dose: 1 each Documented by: Cholecalciferol (Vitamin D3 (25 Mcg = 1000 Iu)) 2,000 unit PO DAILY [facility] Last Admin: 03/12/19 10:16 Dose: 2,000 unit Documented by: Lisinopril/HCTZ (Zestoretic 10-12.5) 1 each PO DAILY [facility] Last Admin: 03/12/19 10:16 Dose: 1 each Documented by: Ertapenem 1 gm/ Sodium (Chloride) 50 mls @ 100 mls/hr IVPB Q24HR@2100 [facility]; Protocol Last Admin: 03/12/19 21:32 Dose: 100 mls/hr Documented by: Miscellaneous Information (Coumadin Per Pharmacy) 0 each MISCELLANE DIRECTED PRN PRN Reason: ANTICOAG Naloxone HCl (Narcan) 0.2 mg IV Q2M PRN PRN Reason: Opioid Reversal Myrbetriq ( (Mirabegron) 25 Mg) 25 mg PO [facility] Last Admin: 03/12/19 20:25 Dose: Not Given Documented by: Pantoprazole Sodium (Protonix) 40 mg PO BID [facility] Last Admin: 03/12/19 20:28 Dose: 40 mg Documented by: Senna/Docusate Sodium (Senokot-S) 1 each PO BID [facility] Last Admin: 03/12/19 20:27 Dose: 1 each Documented by: Spironolactone (Aldactone) 25 mg PO DAILY [facility] Last Admin: 03/12/19 10:16 Dose: 25 mg Documented by: Warfarin Sodium (Coumadin) 2.5 mg PO SuThFrSa@1800 [facility] Last Admin: 03/12/19 18:02 Dose: 2.5 mg Documented by: Warfarin Sodium (Coumadin) 1.25 mg PO MoTuWe@1800 [facility] Home Medications Medication Instructions Recorded Confirmed Type Carbidopa-Levodopa ER 25-100Mg 1 tab PO QID 01/11/19 03/11/19 History [Sinemet CR 25-100 mg] Omeprazole [PriLOSEC] 20 mg PO BID 01/11/19 03/11/19 History Warfarin Sodium 1.25 mg PO MOTUWE 01/11/19 03/11/19 History Warfarin Sodium 2.5 mg PO SUTHFRSA 01/11/19 03/11/19 History Spironolactone [Aldactone] 25 mg PO DAILY tab 01/25/19 03/11/19 Rx Mirabegron [Myrbetriq] 25 mg PO HS 02/11/19 03/11/19 History Sennosides-Docusate Sodium 1 tab PO BID 02/11/19 03/11/19 History [Senokot-S] Acetaminophen Tab [Tylenol] 500 mg PO TID PRN 02/19/19 03/11/19 History Bisacodyl [Dulcolax] 5 mg PO BID 02/19/19 03/11/19 History Cholecalciferol [Vitamin D3 (25 2,000 unit PO DAILY 02/19/19 03/11/19 History Mcg = 1000 Iu)] Levofloxacin 250 mg PO DAILY 3 Days #3 tablet 03/09/19 03/11/19 Rx Lisinopril-Hctz 10-12.5 mg 1 tab PO DAILY 03/09/19 03/11/19 History [Zestoretic 10-12.5] Allergies Allergy/AdvReac Type Severity Reaction Status Date / Time Influenza Virus Vaccines Allergy Swelling Verified 03/11/19 23:53 Penicillins Allergy Anaphylaxis Verified 03/11/19 23:53 Physical Exam Vitals: Vital Signs Temp Pulse Pulse Resp BP BP Pulse Ox 03/12/19 14:31 96.9 F L 68 16 106/49 92 L 03/12/19 10:23 176/88 03/12/19 10:05 97.6 F 65 16 175/80 94 L 03/12/19 08:30 98.7 F 81 20 138/61 99 03/12/19 04:36 98.1 F 67 16 148/62 95 03/11/19 23:32 97.8 F 74 18 142/74 96 Intake and Output 03/12/19 03/12/19 03/13/19 14:59 22:59 06:59 Intake Total 200 Balance 200 Intake: Oral 200 Other: Voiding Method Bedside Commode # Voids 4 Elderly woman appears ill HEENT: Anicteric conjunctiva are pink and moist nasal mucosa grossly intact without significant lesions, there is no thrush. Neck: The neck is supple without significant lymphadenopathy or thyromegaly. Lungs: Good bilateral air entry without significant crackles or wheezing. There is no significant bronchial sounds. There is no egophony or dullness. Heart: Regular rate and rhythm with an audible S1-S2, no S3 no S4. There is no significant murmur click or rub, PMI was nondisplaced. Abdomen: Positive bowel sounds, abdomen is soft she has some mild left flank tenderness and suprapubic tenderness but there is no guarding or rigidity or rebound Extremities: The upper extremities have excellent pulses they are symmetric, no significant petechiae or telangiectasia. No splinter hemorrhages were noted. T he lower extremities are free from significant edema. The peripheral pulses were 2+ and symmetric. Neuro: Awake alert oriented to person place and time. There are no acute new gross focal sensory motor deficits. Results CBC & Chem 7: 08/09/19 01:00 03/12/19 01:00 Labs: Abnormal Lab Results - Last 24 Hours (Table) 03/12/19 03/12/19 03/12/19 Range/Units 01:00 01:00 01:00 PT 22.9 H (9.0-12.0) sec INR 2.4 H (<1.2) BUN 25 H (7-17) mg/dL Glucose 106 H (74-99) mg/dL ALT <6 L (9-52) U/L Urine Appearance Cloudy H (Clear) Ur Leukocyte Esterase Small H (Negative) Urine WBC 11 H (0-5) /hpf Hyaline Casts 4 H (0-2) /lpf Urine Mucus Rare H (None) /hpf Microbiology - Last 24 Hours (Table) 03/12/19 01:00 Urine Culture - Preliminary Urine,Voided Laboratory Results WBC 7.1 k/uL (3.8-10.6) 03/12/19 01:00 RBC 4.51 m/uL (3.80-5.40) 03/12/19 01:00 Hgb 13.3 gm/dL (11.4-16.0) 03/12/19 01:00 Hct 39.8 % (34.0-46.0) 03/12/19 01:00 MCV 88.3 fL (80.0-100.0) 03/12/19 01:00 MCH 29.6 pg (25.0-35.0) 03/12/19 01:00 MCHC 33.5 g/dL (31.0-37.0) 03/12/19 01:00 RDW 14.3 % (11.5-15.5) 03/12/19 01:00 Plt Count 315 k/uL (150-450) 03/12/19 01:00 Neutrophils % 58 % 03/12/19 01:00 Lymphocytes % 31 % 03/12/19 01:00 Monocytes % 6 % 03/12/19 01:00 Eosinophils % 2 % 03/12/19 01:00 Basophils % 1 % 03/12/19 01:00 Neutrophils # 4.1 k/uL (1.3-7.7) 03/12/19 01:00 Lymphocytes # 2.2 k/uL (1.0-4.8) 03/12/19 01:00 Monocytes # 0.4 k/uL (0-1.0) 03/12/19 01:00 Eosinophils # 0.1 k/uL (0-0.7) 03/12/19 01:00 Basophils # 0.1 k/uL (0-0.2) 03/12/19 01:00 PT 22.9 sec (9.0-12.0) H 03/12/19 01:00 INR 2.4 (<1.2) H 03/12/19 01:00 APTT 29.4 sec (22.0-30.0) 03/12/19 01:00 Sodium 137 mmol/L (137-145) 03/12/19 01:00 Potassium 3.8 mmol/L (3.5-5.1) 03/12/19 01:00 Chloride 100 mmol/L (98-107) 03/12/19 01:00 Carbon Dioxide 28 mmol/L (22-30) 03/12/19 01:00 Anion Gap 9 mmol/L 03/12/19 01:00 BUN 25 mg/dL (7-17) H 03/12/19 01:00 Creatinine 0.93 mg/dL (0.52-1.04) 03/12/19 01:00 Est GFR (CKD-EPI)AfAm 69 (>60 ml/min/1.73 sqM) 03/12/19 01:00 Est GFR (CKD-EPI)NonAf 60 (>60 ml/min/1.73 sqM) 03/12/19 01:00 Glucose 106 mg/dL (74-99) H 03/12/19 01:00 Plasma Lactic Acid Abdiaziz 0.8 mmol/L (0.7-2.0) 03/12/19 01:00 Calcium 9.6 mg/dL (8.4-10.2) 03/12/19 01:00 Total Bilirubin 0.5 mg/dL (0.2-1.3) 03/12/19 01:00 AST 15 U/L (14-36) 03/12/19 01:00 ALT <6 U/L (9-52) L 03/12/19 01:00 Alkaline Phosphatase 50 U/L (38-126) 03/12/19 01:00 Total Protein 7.3 g/dL (6.3-8.2) 03/12/19 01:00 Albumin 4.3 g/dL (3.5-5.0) 03/12/19 01:00 Urine Color Yellow 03/12/19 01:00 Urine Appearance Cloudy (Clear) H 03/12/19 01:00 Urine pH 6.0 (5.0-8.0) 03/12/19 01:00 Ur Specific [place] 1.014 (1.001-1.035) 03/12/19 01:00 Urine Protein Negative (Negative) 03/12/19 01:00 Urine Glucose (UA) Negative (Negative) 03/12/19 01:00 Urine Ketones Negative (Negative) 03/12/19 01:00 Urine Blood Negative (Negative) 03/12/19 01:00 Urine Nitrite Negative (Negative) 03/12/19 01:00 Urine Bilirubin Negative (Negative) 03/12/19 01:00 Urine Urobilinogen <2.0 mg/dL (<2.0) 03/12/19 01:00 Ur Leukocyte Esterase Small (Negative) H 03/12/19 01:00 Urine WBC 11 /hpf (0-5) H 03/12/19 01:00 Ur Squamous Epith Cells 2 /hpf (0-4) 03/12/19 01:00 Hyaline Casts 4 /lpf (0-2) H 03/12/19 01:00 Urine Mucus Rare /hpf (None) H 03/12/19 01:00 Microbiology 03/12/19 01:00 Urine,Voided Urine Culture - Preliminary Urine culture March 09 reveals evidence of the ESBL E. coli Assessment and Plan (1) UTI due to extended-spectrum beta lactamase (ESBL) producing Escherichia coli Narrative/Plan: 78-year-old woman who has a history of prior urinary tract infections as well as difficulty with her urinary bladder with difficulties with urinary incontinence leakage and frequency. Relates that she had a change of her status with temperatures up to 102 with dysuria and counseling did present to the emergency center. She was placed on Levaquin. However she continued to have fever was not feeling well in counseling presents [facility] emergency center and now there is evidence of her urine culture is evidence of a multidrug resistant E. coli that is ESBL and not susceptible to fluoroquinolone. If the time of the consult antibiotic therapy with ertapenem as initiated and this will be planned for the next few days. Depending on her response will determine what her options are the time of discharge. Ideally would like had ever treated for some time with IV antibiotic therapy and possibly outpatient infusion can be arranged will work with the assistant case manager. Current Visit: Yes Status: Acute Code(s): N39.0 - URINARY TRACT INFECTION, SITE NOT SPECIFIED; B96.29 - OTH ESCHERICHIA COLI THE CAUSE OF DISEASES CLASSD ELSWHR; Z16.12 - EXTENDED SPECTRUM BETA LACTAMASE (ESBL) RESISTANCE SNOMED Code(s): 847390591 (2) Weakness Current Visit: No Status: Acute Code(s): R53.1 - WEAKNESS SNOMED Code(s): 57566892
[2019-03-13 08:12] LABS: INR 2.5 (<1.2); Prothrombin Time 24.1 sec (9.0-12.0)
[2019-03-13] MEDS: BISACODYL 5 MG TABLET.DR PO SCH ×2 (08:35→20:32)
[2019-03-13] MEDS: CARBIDOPA-LEVODOPA ER 25-100MG 1 EACH TABLET.ER PO SCH ×4 (08:42→20:32)
[2019-03-13] MEDS: PANTOPRAZOLE 40 MG TABLET PO SCH ×2 (08:42→20:32)
[2019-03-13] MEDS: ACETAMINOPHEN TAB 500 MG TAB PO PRN ×2 (08:42→20:28)
[2019-03-13] MEDS: LISINOPRIL-HCTZ 10-12.5 MG 1 EACH TAB PO SCH (08:42)
[2019-03-13] MEDS: SPIRONOLACTONE 25 MG TAB PO SCH (08:43)
[2019-03-13] MEDS: SENNOSIDES-DOCUSATE SODIUM 1 EACH TAB PO SCH ×2 (08:43→20:32)
[2019-03-13] MEDS: CHOLECALCIFEROL 1,000 UNIT TAB PO SCH (08:43)
--- NOTE | 2019-03-13 17:17 | P.PN ---
Progress Note - Text Progress Note Date: 03/13/19 Chief Complaint: Urinary frequency and burning Interval history: This is a very pleasant 78-year-old patient of Dr. Benitez. Lives with her daughter. Chronic stable medical conditions include asthma hypertension Ruddy arthritis diverticulosis Parkinson's disease and arthritis. Patient also got chronic DVT and chronically on Coumadin. CHF with EF of 55-60% patient has chronic lower extremities swelling from venous insufficiency. Patient's had previous UTIs. Patient was in the hospital 2 days ago in the ER with fever chills urinary symptoms was diagnosed of a UTI. Was given a dose of IV ceftriaxone and discharged home on antibiotic. Patient started taking the same. Patient's urine culture came back showing E. coli with ESBL. And patient was called to get admitted. Patient continues to urine symptoms with frequency. Patient also had some lower belly pain. Also had some fever and chills at home. Appetite has not been good. Patient's current a dose of Invanz in the ER. And admitted for the same. Today-sitting up in a chair. A bit less pelvic pain. Urinary frequency is coming down. Seen by ID. Did tolerate her diet. For which rather cheerful otherwise Active Medications Acetaminophen (Tylenol Tab) 500 mg PO TID PRN PRN Reason: Pain Last Admin: 03/13/19 08:42 Dose: 500 mg Documented by: Bisacodyl (Dulcolax) 5 mg PO BID [facility] Last Admin: 03/13/19 08:35 Dose: Not Given Documented by: Carbidopa/Levodopa (Sinemet Er 25-100) 1 each PO QID [facility] Last Admin: 03/13/19 13:26 Dose: 1 each Documented by: Cholecalciferol (Vitamin D3 (25 Mcg = 1000 Iu)) 2,000 unit PO DAILY [facility] Last Admin: 03/13/19 08:43 Dose: 2,000 unit Documented by: Lisinopril/HCTZ (Zestoretic 10-12.5) 1 each PO DAILY [facility] Last Admin: 03/13/19 08:42 Dose: 1 each Documented by: Ertapenem 1 gm/ Sodium (Chloride) 50 mls @ 100 mls/hr IVPB Q24HR@2100 [facility]; Protocol Last Admin: 03/12/19 21:32 Dose: 100 mls/hr Documented by: Miscellaneous Information (Coumadin Per Pharmacy) 0 each MISCELLANE DIRECTED PRN PRN Reason: ANTICOAG Naloxone HCl (Narcan) 0.2 mg IV Q2M PRN PRN Reason: Opioid Reversal Myrbetriq ( (Mirabegron) 25 Mg) 25 mg PO HS [facility] Last Admin: 03/12/19 20:25 Dose: Not Given Documented by: Pantoprazole Sodium (Protonix) 40 mg PO BID [facility] Last Admin: 03/13/19 08:42 Dose: 40 mg Documented by: Senna/Docusate Sodium (Senokot-S) 1 each PO BID [facility] Last Admin: 03/13/19 08:43 Dose: 1 each Documented by: Spironolactone (Aldactone) 25 mg PO DAILY [facility] Last Admin: 03/13/19 08:43 Dose: 25 mg Documented by: Warfarin Sodium (Coumadin) 2.5 mg PO SuThFrSa@1800 [facility] Last Admin: 03/12/19 18:02 Dose: 2.5 mg Documented by: Warfarin Sodium (Coumadin) 1.25 mg PO MoTuWe@1800 [facility] Physical examination: VITAL SIGNS: 97.9, 63, 20, 128/70, 94% room air GENERAL: Sitting upon a chair, comfortable smiling EYES: Pupils equal. Conjunctiva normal. HEENT: External appearance of nose and ears normal, oral cavity grossly normal. NECK: JVD not raised; masses not palpable. HEART: First and second heart sounds are normal; edema present. LUNGS: Respiratory rate increased, decreased breath sounds ABDOMEN: Soft, nontender, liver spleen not palpable, no masses palpable. LYMPHATICS: No lymph nodes palpable in the axilla and neck. PSYCH: Alert and oriented x3; mood and affect normal. Investigations reviewed in the clinical context: INR 2.5 Urine cultures growing gram-negative bacilli blood cultures are pending Previous tests White count 7.1 hemoglobin 13.3 INR 2.4in 3.8 creatinine 0.93 UA positive for leukoesterase, WBC 11, squamous epithelial to Urine culture from March 09 showing E. coli with ESBL Assessment: -Acute UTI with cystitis recurrent with now cultures growing gram-negative negative bacilli -Chronic congestive heart failure from diastolic dysfunction EF 55-60% -Obesity BMI 34.5 -Chronic DVT for which patient chronically on Coumadin -GERD -Essential hypertension -Mild cognitive impairment from underlying Alzheimer's dementia -Primary osteoarthritis -Idiopathic Parkinson's disease -Chronic urinary stress incontinence -Chronic gait dysfunction uses a walker -Chronic lower extremity swelling from DVT that is from venous insufficiency Plan: Patient is on IV ertapenem. Repeat labs in the morning. Symptoms are improving. Discussed with the patient.
[2019-03-13] MEDS: WARFARIN 2.5 MG TAB PO SCH (17:42)
[2019-03-13] MEDS: ERTAPENEM 1 GM in SODIUM CHLORIDE 0.9% 50 ML IVPB SCH (20:33)
[2019-03-14] MEDS: BISACODYL 5 MG TABLET.DR PO SCH ×2 (07:40→20:16)
[2019-03-14 07:55] LABS: African American GFR (CKD) >90 (>60 ml/min/1.73 sqM); Anion Gap 7 mmol/L; Blood Urea Nitrogen 24 mg/dL (7-17); Calcium 8.9 mg/dL (8.4-10.2); Carbon Dioxide 26 mmol/L (22-30); Chloride 103 mmol/L (98-107); Glucose 85 mg/dL (74-99); Sodium 136 mmol/L (137-145)
[2019-03-14] MEDS: PANTOPRAZOLE 40 MG TABLET PO SCH ×2 (07:56→20:17)
[2019-03-14] MEDS: LISINOPRIL-HCTZ 10-12.5 MG 1 EACH TAB PO SCH (07:56)
[2019-03-14] MEDS: CHOLECALCIFEROL 1,000 UNIT TAB PO SCH (07:56)
[2019-03-14] MEDS: SENNOSIDES-DOCUSATE SODIUM 1 EACH TAB PO SCH ×2 (07:56→20:17)
[2019-03-14] MEDS: SPIRONOLACTONE 25 MG TAB PO SCH (07:56)
[2019-03-14] MEDS: CARBIDOPA-LEVODOPA ER 25-100MG 1 EACH TABLET.ER PO SCH ×4 (07:56→20:16)
[2019-03-14 07:58] LABS: Potassium 4.6 mmol/L (3.5-5.1)
[2019-03-14] MEDS: ACETAMINOPHEN TAB 500 MG TAB PO PRN ×2 (07:58→20:16)
[2019-03-14 08:00] LABS: INR 2.8 (<1.2)
[2019-03-14 08:05] LABS: Basophils # (A) 0.1 k/uL (0-0.2); Basophils % (A) 1 %; Eosinophils # (A) 0.2 k/uL (0-0.7); Eosinophils % (A) 3 %; HGB 13.7 gm/dL (11.4-16.0); Lymphocytes # (A) 1.5 k/uL (1.0-4.8); Lymphocytes % (A) 25 %; MCH 34.4 pg (25.0-35.0); MCV 92.8 fL (80.0-100.0); Monocytes # (A) 0.5 k/uL (0-1.0); Monocytes % (A) 8 %; Neutrophils # (A) 3.8 k/uL (1.3-7.7); Neutrophils % (A) 62 %; Platelet Count 268 k/uL (150-450); RBC 3.99 m/uL (3.80-5.40); RDW 15.6 % (11.5-15.5); WBC 6.1 k/uL (3.8-10.6)
--- NOTE | 2019-03-14 16:53 | P.PN ---
Progress Note - Text Progress Note Date: 03/14/19 Chief Complaint: Urinary frequency and burning Interval history: This is a very pleasant 78-year-old patient of Dr. Benitez. Lives with her daughter. Chronic stable medical conditions include asthma hypertension Ruddy arthritis diverticulosis Parkinson's disease and arthritis. Patient also got chronic DVT and chronically on Coumadin. CHF with EF of 55-60% patient has chronic lower extremities swelling from venous insufficiency. Patient's had previous UTIs. Patient was in the hospital 2 days ago in the ER with fever chills urinary symptoms was diagnosed of a UTI. Was given a dose of IV ceftriaxone and discharged home on antibiotic. Patient started taking the same. Patient's urine culture came back showing E. coli with ESBL. And patient was called to get admitted. Patient continues to urine symptoms with frequency. Patient also had some lower belly pain. Also had some fever and chills at home. Appetite has not been good. Patient's current a dose of Invanz in the ER. And admitted for the same. Today-overall feeling much better. Had some arthritic pain in the left hip. Suprapubic pain is gone no nausea vomiting. Tolerating a diet. Review of systems: Was done for constitutional, cardiovascular, GI, pulmonary. relevant finding as above Active Medications Acetaminophen (Tylenol Tab) 500 mg PO TID PRN PRN Reason: Pain Last Admin: 03/14/19 07:58 Dose: 500 mg Documented by: Bisacodyl (Dulcolax) 5 mg PO BID [facility] Last Admin: 03/14/19 07:40 Dose: Not Given Documented by: Carbidopa/Levodopa (Sinemet Er 25-100) 1 each PO QID [facility] Last Admin: 03/14/19 12:05 Dose: 1 each Documented by: Cholecalciferol (Vitamin D3 (25 Mcg = 1000 Iu)) 2,000 unit PO DAILY [facility] Last Admin: 03/14/19 07:56 Dose: 2,000 unit Documented by: Lisinopril/HCTZ (Zestoretic 10-12.5) 1 each PO DAILY [facility] Last Admin: 03/14/19 07:56 Dose: 1 each Documented by: Ertapenem 1 gm/ Sodium (Chloride) 50 mls @ 100 mls/hr IVPB Q24HR@2100 [facility]; Protocol Last Admin: 08/10/19 20:33 Dose: 100 mls/hr Documented by: Miscellaneous Information (Coumadin Per Pharmacy) 0 each MISCELLANE DIRECTED PRN PRN Reason: ANTICOAG Naloxone HCl (Narcan) 0.2 mg IV Q2M PRN PRN Reason: Opioid Reversal Myrbetriq ( (Mirabegron) 25 Mg) 25 mg PO HS [facility] Last Admin: 03/13/19 20:33 Dose: Not Given Documented by: Pantoprazole Sodium (Protonix) 40 mg PO BID [facility] Last Admin: 03/14/19 07:56 Dose: 40 mg Documented by: Senna/Docusate Sodium (Senokot-S) 1 each PO BID [facility] Last Admin: 03/14/19 07:56 Dose: 1 each Documented by: Spironolactone (Aldactone) 25 mg PO DAILY [facility] Last Admin: 03/14/19 07:56 Dose: 25 mg Documented by: Warfarin Sodium (Coumadin) 2.5 mg PO SuThFrSa@1800 [facility] Last Admin: 03/13/19 17:42 Dose: 2.5 mg Documented by: Warfarin Sodium (Coumadin) 1.25 mg PO MoTuWe@1800 [facility] Physical examination: VITAL SIGNS:97.6, 61, 18, 119/70, 93% room air GENERAL: Sitting upon a chair, comfortable EYES: Pupils equal. Conjunctiva normal. HEENT: External appearance of nose and ears normal, oral cavity grossly normal. NECK: JVD not raised; masses not palpable. HEART: First and second heart sounds are normal; edema present. LUNGS: Respiratory rate increased, decreased breath sounds ABDOMEN: Soft, nontender, liver spleen not palpable, no masses palpable. LYMPHATICS: No lymph nodes palpable in the axilla and neck. PSYCH: Alert and oriented x3; mood and affect normal. Investigations reviewed in the clinical context: INR 2.8 Urine cultures growing E. coli/ESBL Previous tests White count 7.1 hemoglobin 13.3 INR 2.4in 3.8 creatinine 0.93 UA positive for leukoesterase, WBC 11, squamous epithelial to Urine culture from March 09 showing E. coli with ESBL Assessment: -Acute UTI with cystitis recurrent with now cultures growing ESBL/E. coli -Chronic congestive heart failure from diastolic dysfunction EF 55-60% -Obesity BMI 34.5 -Chronic DVT for which patient chronically on Coumadin -GERD -Essential hypertension -Mild cognitive impairment from underlying Alzheimer's dementia -Primary osteoarthritis -Idiopathic Parkinson's disease -Chronic urinary stress incontinence -Chronic gait dysfunction uses a walker -Chronic lower extremity swelling from DVT that is from venous insufficiency Plan: Patient is on IV ertapenem. I have ordered a midline. DC antibiotic being coordinated by Dr. Pruett.hoping patient can be discharged tomorrow
[2019-03-14] MEDS: WARFARIN 2.5 MG TAB PO SCH (17:48)
[2019-03-14] MEDS: ERTAPENEM 1 GM in SODIUM CHLORIDE 0.9% 50 ML IVPB SCH (20:15)
[2019-03-15] MEDS: ACETAMINOPHEN TAB 500 MG TAB PO PRN ×2 (05:53→17:02)
[2019-03-15] MEDS: LISINOPRIL-HCTZ 10-12.5 MG 1 EACH TAB PO SCH (07:59)
[2019-03-15] MEDS: PANTOPRAZOLE 40 MG TABLET PO SCH ×2 (07:59→21:08)
[2019-03-15] MEDS: BISACODYL 5 MG TABLET.DR PO SCH ×2 (07:59→11:37)
[2019-03-15] MEDS: CARBIDOPA-LEVODOPA ER 25-100MG 1 EACH TABLET.ER PO SCH ×4 (07:59→21:08)
[2019-03-15] MEDS: SENNOSIDES-DOCUSATE SODIUM 1 EACH TAB PO SCH ×2 (07:59→11:38)
[2019-03-15] MEDS: CHOLECALCIFEROL 1,000 UNIT TAB PO SCH (08:00)
[2019-03-15] MEDS: SPIRONOLACTONE 25 MG TAB PO SCH (08:01)
[2019-03-15 10:11] LABS: Prothrombin Time 28.9 sec (9.0-12.0)
[2019-03-15] MEDS ORDERED: WARFARIN 1.25 MG TAB PO SCH (18:00)
--- NOTE | 2019-03-15 19:22 | PN ---
PROGRESS NOTE DATE OF SERVICE: 03/15/2019 I am covering for Dr. Levy. This 78-year-old woman who was admitted with UTI with cystitis, also had cultures growing ESBL E coli. The patient is on IV antibiotics and Infectious Disease has also seen the patient. The cultures are positive E coli at this time. The patient is being closely monitored. PAST MEDICAL HISTORY: Reviewed. REVIEW OF SYSTEMS: Cardiovascular system: No angina or palpitations. RESPIRATORY: As mentioned earlier. GI: As mentioned earlier. : No dysuria. CENTRAL NERVOUS SYSTEM: No numbness or weakness. CURRENT MEDICATIONS: Reviewed and include: 1. Tylenol 500 mg t.i.d. 2. Dulcolax 5 mg p.o. b.i.d. 3. Sinemet 25/100 1 p.o. q.i.d. 4. Vitamin D3. 5. Ertapenem 1 g daily. 6. Zestoretic 1 p.o. daily. 7. Coumadin. 8. Narcan. 10.Protonix. 11.Senokot-S. 12.Aldactone. PHYSICAL EXAM: Patient is alert, oriented x3. Pulse is 75. Blood pressure 129/90, respirations 16, temperature 97.4, pulse ox 93 percent on room air. HEENT: Conjunctivae normal. NECK: No JVD. CARDIOVASCULAR: S1, S2 muffled. RESPIRATION: Breath sounds diminished in the bases. Bilateral scattered rhonchi and crackles. ABDOMEN: Soft, nontender. No mass palpable. LEGS: No edema. No swelling. CENTRAL NERVOUS SYSTEM: No focal deficits. LABS: CBC within normal limits. INR is 3. Sodium 136. ASSESSMENT: 1. Acute urinary tract infection with cystitis, recurrent cultures growing ESBL E coli. 2. Congestive heart failure with chronic diastolic dysfunction, ejection fraction 55- 60 percent. 3. Obesity with body mass of 34.5. 4. Chronic deep vein thrombosis. The patient is chronically on Coumadin. 5. Gastroesophageal reflux disease. 6. Hypertension. 7. Mild cognitive impairment with underlying Alzheimer's dementia. 8. Degenerative joint disease. 9. Idiopathic Parkinson disease. 10.Chronic urinary stress incontinence. 11.Chronic gait dysfunction, uses a walker. 12.Chronic lower extremity swelling for deep vein thrombosis and gait dysfunction. RECOMMENDATIONS AND DISCUSSION: Recommend to continue current medications, monitoring, management and symptomatic treatment. Continue with IV antibiotics. Follow closely with Infectious Disease. Patient is on ertapenem, Invanz and we will continue to monitor. The patient is also on Coumadin as well. Further recommendations to follow. MMODL / IJN: [id number] / KARMEN
[2019-03-15] MEDS: ERTAPENEM 1 GM in SODIUM CHLORIDE 0.9% 50 ML IVPB SCH (21:08)
[2019-03-16] MEDS: ACETAMINOPHEN TAB 500 MG TAB PO PRN (03:43)
[2019-03-16] MEDS: PANTOPRAZOLE 40 MG TABLET PO SCH (08:34)
[2019-03-16] MEDS: SPIRONOLACTONE 25 MG TAB PO SCH (08:34)
[2019-03-16] MEDS: CHOLECALCIFEROL 1,000 UNIT TAB PO SCH (08:34)
[2019-03-16] MEDS: LISINOPRIL-HCTZ 10-12.5 MG 1 EACH TAB PO SCH (08:34)
[2019-03-16] MEDS: CARBIDOPA-LEVODOPA ER 25-100MG 1 EACH TABLET.ER PO SCH ×2 (08:35→13:33)
[2019-03-16] MEDS: BISACODYL 5 MG TABLET.DR PO SCH (08:35)
[2019-03-16] MEDS: SENNOSIDES-DOCUSATE SODIUM 1 EACH TAB PO SCH (08:35)
[2019-03-16 08:42] VITALS: BP 144/73; PULSE 65; RESP 20; TEMP 98
[2019-03-16 08:49] LABS: INR 3.5 (<1.2); Prothrombin Time 33.7 sec (9.0-12.0)
--- NOTE | 2019-03-16 14:52 | P.DS ---
Providers Date of admission: 03/13/19 11:18 Expected date of discharge: 03/16/19 Attending physician: Tim Levy Consults: 03/11/19 23:54 Consult Physician Stat Consulting Provider: Faustino Pruett Reason/Comments: ESBL UTI, PCN allergy Do you want consulting provider notified?: Yes, Notify in am Primary care physician: [facility] Course: Final diagnosis Acute urinary tract infection with cystitis, recurrent cultures growing ESBL, E. coli Congestive heart failure with chronic diastolic dysfunction: Ejection fraction is 55-60% Obesity with body mass index of 34.5 Chronic deep vein thrombosis. The patient is chronically on Coumadin Gastroesophageal reflux disease Hypertension Mild cognitive impairment with underlying Alzheimer's dementia Degenerative joint disease Idiopathic Parkinson disease Chronic urinary stress incontinence Chronic gait dysfunction, uses a walker Chronic lower extremity swelling for DVT and gait dysfunction History of present illness This is a 70-year-old woman who was admitted with UTI with cystitis that cultures growing ESBL and E. coli. Patient was being followed by infectious disease. Patient will be going to [facility] for IV antibiotic therapy to continue for 1 week as well as PT/OT for rehab. Patient is also currently supratherapeutic on Coumadin and will be holding tonight's dose as well as tomorrow 03/17/19 and have her PT/INR redrawn. Patient may resume on 1.25 mg of Coumadin daily and continue to recheck INR until therapeutic. Patient denies any chest pain, shortness of breath, or palpitations at this time. Patient is afebrile. Patient denies any nausea, or vomiting at this time. Patient is tolerating diet well. Patient is urinating well. On exam vital signs are stable. Blood pressure is 144/73, pulse is 65, respirations are 20, temp is 98F, oxygen saturation is 93% on room air. Cardio S1 and S2 are muffled. Respiratory shows diminished breath sounds at the bases with a few scattered rhonchi and crackles noted. Abdomen is soft and non- tender. Nervous system shows no focal deficits with mild diffuse weakness. Please refer to medication reconciliation sheet for a list of medications. Patient Condition at Discharge: Stable Plan - Discharge Summary Discharge Rx Participant: No New Discharge Prescriptions: New Ertapenem [INVanz] 1 gm IVPB Q24H #7 bag Continue Omeprazole [PriLOSEC] 20 mg PO BID Carbidopa-Levodopa ER 25-100Mg [Sinemet CR 25-100 mg] 1 tab PO QID Warfarin Sodium 2.5 mg PO SUTHFRSA Spironolactone [Aldactone] 25 mg PO DAILY tab Sennosides-Docusate Sodium [Senokot-S] 1 tab PO BID Mirabegron [Myrbetriq] 25 mg PO HS Cholecalciferol [Vitamin D3 (25 Mcg = 1000 Iu)] 2,000 unit PO DAILY Bisacodyl [Dulcolax] 5 mg PO BID Acetaminophen Tab [Tylenol] 500 mg PO TID PRN PRN Reason: Pain Lisinopril-Hctz 10-12.5 mg [Zestoretic 10-12.5] 1 tab PO DAILY Warfarin Sodium 1.25 mg PO MOTUWE #7 tablet Discontinued Levofloxacin 250 mg PO DAILY 3 Days #3 tablet Discharge Medication List Carbidopa-Levodopa ER 25-100Mg [Sinemet CR 25-100 mg] 1 tab PO QID 01/11/19 [History] Omeprazole [PriLOSEC] 20 mg PO BID 01/11/19 [History] Warfarin Sodium 2.5 mg PO SUTHFRSA 01/11/19 [History] Spironolactone [Aldactone] 25 mg PO DAILY tab 01/25/19 [Rx] Mirabegron [Myrbetriq] 25 mg PO HS 02/11/19 [History] Sennosides-Docusate Sodium [Senokot-S] 1 tab PO BID 02/11/19 [History] Acetaminophen Tab [Tylenol] 500 mg PO TID PRN 02/19/19 [History] Bisacodyl [Dulcolax] 5 mg PO BID 02/19/19 [History] Cholecalciferol [Vitamin D3 (25 Mcg = 1000 Iu)] 2,000 unit PO DAILY 02/19/19 [History] Lisinopril-Hctz 10-12.5 mg [Zestoretic 10-12.5] 1 tab PO DAILY 03/09/19 [History] Ertapenem [INVanz] 1 gm IVPB Q24H #7 bag 03/16/19 [Rx] Warfarin Sodium 1.25 mg PO MOTUWE #7 tablet 03/16/19 [Rx] Follow up Appointment(s)/Referral(s): Angel Benitez DO [Primary Care Provider] - 1-2 days Faustino Pruett MD [STAFF PHYSICIAN] - 2 Weeks Ambulatory/Diagnostic Orders: Basic Metabolic Panel [LAB.AMB] Location: None Selected Complete Blood Count w/diff [LAB.AMB] Location: None Selected Prothrombin Time INR [LAB.AMB] Time Frame: 2 Days, Location: None Selected Activity/Diet/Wound Care/Special Instructions: Patient is going to [facility] as tolerated Continue current diet Patient had a midline placed and will be getting Invanz for 7 days per infectious disease Patient's current INR is 3.5. Patient will hold Coumadin for 03/16/19 and 03/17/19 dose and recheck PT/INR. Patient may resume Coumadin 1.25 mg daily after the recheck or adjust accordingly. Discharge Disposition: TRANSFER TO SNF/ECF
[2019-03-16] MEDS ORDERED: WARFARIN 0.5 MG TAB PO ONE (18:00)
--- NOTE | 2019-03-16 22:47 | P.PN ---
Subjective Progress Note Date: 03/16/19 78-year-old female with history of her family in the outpatient setting relates that she was not feeling well she developed fever dysuria and increasing weakness and presented to the emergency center a few days prior. She had workup and was placed on levofloxacin for a urinary tract infection. She has known difficulties with prior urinary infections and urinary incontinence. Despite receiving antibiotic therapy emergency center she continue to have some fever and chill weakness generalized malaise and consequently she was brought back to the emergency center and has been admitted with evidence of a drug- resistant urinary tract infection and the consult was requested. March 16 the patient has had some improvement in her status and will be going to rehabilitation today. As noted there is evidence of the ESBL E. coli susceptible Invanz. Her is updated to the plan for the 10 further days of antibiotics. Objective - Vital Signs Vital signs: Vital Signs Temp 98.0 F 03/16/19 07:00 Pulse 65 03/16/19 07:00 Resp 20 03/16/19 14:47 BP 144/73 03/16/19 07:00 Pulse Ox 93 L 03/16/19 07:00 Intake & Output 03/16/19 03/16/19 03/17/19 06:59 18:59 06:59 Intake Total 100 Balance 100 Intake: Oral 100 Other: Voiding Method Bedside Commode Bedside Commode - Exam Elderly woman appears chronically ill HEENT: Anicteric conjunctiva are pink and moist nasal mucosa grossly intact without significant lesions, there is no thrush. Neck: The neck is supple without significant lymphadenopathy or thyromegaly. Lungs: Good bilateral air entry without significant crackles or wheezing. There is no significant bronchial sounds. There is no egophony or dullness. Heart: Regular rate and rhythm with an audible S1-S2, no S3 no S4. There is no significant murmur click or rub, PMI was nondisplaced. Abdomen: Positive bowel sounds, abdomen is soft she has some mild left flank tenderness and suprapubic tenderness but there is no guarding or rigidity or rebound Extremities: The upper extremities have excellent pulses they are symmetric, no significant petechiae or telangiectasia. No splinter hemorrhages were noted. The lower extremities are free from significant edema. The peripheral pulses were 2+ and symmetric. Neuro: Awake alert oriented to person and is comfortable - Labs CBC & Chem 7: 03/14/19 07:14 03/14/19 07:14 Labs: Abnormal Lab Results - Last 24 Hours (Table) 03/16/19 Range/Units 08:20 PT 33.7 H (9.0-12.0) sec INR 3.5 H (<1.2) Microbiology - Last 24 Hours (Table) 03/12/19 01:00 Blood Culture - Preliminary Blood No Growth after 96 hours Laboratory Results WBC 6.1 k/uL (3.8-10.6) 03/14/19 07:14 RBC 3.99 m/uL (3.80-5.40) 03/14/19 07:14 Hgb 13.7 gm/dL (11.4-16.0) 03/14/19 07:14 Hct 37.0 % (34.0-46.0) 03/14/19 07:14 MCV 92.8 fL (80.0-100.0) 03/14/19 07:14 MCH 34.4 pg (25.0-35.0) 03/14/19 07:14 MCHC 37.0 g/dL (31.0-37.0) 03/14/19 07:14 RDW 15.6 % (11.5-15.5) H 03/14/19 07:14 Plt Count 268 k/uL (150-450) 03/14/19 07:14 Neutrophils % 62 % 03/14/19 07:14 Lymphocytes % 25 % 03/14/19 07:14 Monocytes % 8 % 03/14/19 07:14 Eosinophils % 3 % 03/14/19 07:14 Basophils % 1 % 03/14/19 07:14 Neutrophils # 3.8 k/uL (1.3-7.7) 03/14/19 07:14 Lymphocytes # 1.5 k/uL (1.0-4.8) 03/14/19 07:14 Monocytes # 0.5 k/uL (0-1.0) 03/14/19 07:14 Eosinophils # 0.2 k/uL (0-0.7) 03/14/19 07:14 Basophils # 0.1 k/uL (0-0.2) 03/14/19 07:14 PT 33.7 sec (9.0-12.0) H 03/16/19 08:20 INR 3.5 (<1.2) H 03/16/19 08:20 APTT 29.4 sec (22.0-30.0) 03/12/19 01:00 Sodium 136 mmol/L (137-145) L 03/14/19 07:14 Potassium 4.6 mmol/L (3.5-5.1) 03/14/19 07:14 Chloride 103 mmol/L (98-107) 03/14/19 07:14 Carbon Dioxide 26 mmol/L (22-30) 03/14/19 07:14 Anion Gap 7 mmol/L 03/14/19 07:14 BUN 24 mg/dL (7-17) H 03/14/19 07:14 Creatinine 0.64 mg/dL (0.52-1.04) 03/14/19 07:14 Est GFR (CKD-EPI)AfAm >90 (>60 ml/min/1.73 sqM) 03/14/19 07:14 Est GFR (CKD-EPI)NonAf 86 (>60 ml/min/1.73 sqM) 03/14/19 07:14 Glucose 85 mg/dL (74-99) 03/14/19 07:14 Plasma Lactic Acid Abdiaziz 0.8 mmol/L (0.7-2.0) 03/12/19 01:00 Calcium 8.9 mg/dL (8.4-10.2) 03/14/19 07:14 Total Bilirubin 0.5 mg/dL (0.2-1.3) 03/12/19 01:00 AST 15 U/L (14-36) 03/12/19 01:00 ALT <6 U/L (9-52) L 03/12/19 01:00 Alkaline Phosphatase 50 U/L (38-126) 03/12/19 01:00 Total Protein 7.3 g/dL (6.3-8.2) 03/12/19 01:00 Albumin 4.3 g/dL (3.5-5.0) 03/12/19 01:00 Urine Color Yellow 03/12/19 01:00 Urine Appearance Cloudy (Clear) H 03/12/19 01:00 Urine pH 6.0 (5.0-8.0) 03/12/19 01:00 Ur Specific [place] 1.014 (1.001-1.035) 03/12/19 01:00 Urine Protein Negative (Negative) 03/12/19 01:00 Urine Glucose (UA) Negative (Negative) 03/12/19 01:00 Urine Ketones Negative (Negative) 03/12/19 01:00 Urine Blood Negative (Negative) 03/12/19 01:00 Urine Nitrite Negative (Negative) 03/12/19 01:00 Urine Bilirubin Negative (Negative) 03/12/19 01:00 Urine Urobilinogen <2.0 mg/dL (<2.0) 03/12/19 01:00 Ur Leukocyte Esterase Small (Negative) H 03/12/19 01:00 Urine WBC 11 /hpf (0-5) H 03/12/19 01:00 Ur Squamous Epith Cells 2 /hpf (0-4) 03/12/19 01:00 Hyaline Casts 4 /lpf (0-2) H 03/12/19 01:00 Urine Mucus Rare /hpf (None) H 03/12/19 01:00 Microbiology 03/12/19 01:00 Blood Blood Culture - Preliminary No Growth after 96 hours 03/12/19 01:00 Urine,Voided Urine Culture - Final Escherichia coli Assessment and Plan (1) UTI due to extended-spectrum beta lactamase (ESBL) producing Escherichia coli Narrative/Plan: 78-year-old woman who has a history of prior urinary tract infections as well as difficulty with her urinary bladder with difficulties with urinary incontinence leakage and frequency. Relates that she had a change of her status with temperatures up to 102 with dysuria and counseling did present to the emergency center. She was placed on Levaquin. However she continued to have fever was not feeling well in counseling [facility] and now there is evidence of her urine culture is evidence of a multidrug resistant E. coli that is ESBL and not susceptible to fluoroquinolone. If the time of the consult antibiotic therapy with ertapenem as initiated and this will be planned for the next few days. Depending on her response will determine what her options are the time of discharge. Ideally would like had ever treated for some time with IV antibiotic therapy and possibly outpatient infusion can be arranged will work with the case manager. 03/16/2019 the patient is now showing some improvement with resuscitation and fluids. Antibiotic therapy also appears to be along some improvement. Ertapenem is being utilized because of the ESBL E. coli. 10 further days at the [facility] care facility been requested in IV access has been placed for discharge there today. Ideally 4 days at the end of therapy a follow-up urinalysis and cu lture can be done to ensure that there has been improvement before her IV access is removed. Status: Acute Code(s): N39.0 - URINARY TRACT INFECTION, SITE NOT SPECIFIED; B96.29 - OTH ESCHERICHIA COLI THE CAUSE OF DISEASES CLASSD ELSWHR; Z16.12 - EXTENDED SPECTRUM BETA LACTAMASE (ESBL) RESISTANCE SNOMED Code(s): 133141894 (2) Weakness Status: Acute Code(s): R53.1 - WEAKNESS SNOMED Code(s): 75199687
== END 2019-03-16 17:15 | DRG 690 ==
LOC: EC 23:24 → 4SSUR 23:56 → 4MS4W 03-12 05:41 → OBSVTOIN 03-13 11:18
PROVIDERS: ADMIT Hospitalist; ATTEND Hospitalist
PROC: 05HF33Z Insertion of Infusion Device into Left Cephalic Vein, Percutaneous Approach (ICD-10-PCS; principal; 2019-03-15 12:00)
DX: N30.90 Cystitis, unspecified without hematuria (principal); K51.90 Ulcerative colitis, unspecified, without complications; I50.32 Chronic diastolic (congestive) heart failure; G20 Parkinson's disease; G30.9 Alzheimer's disease, unspecified; F02.80 Dementia in other diseases classified elsewhere, unspecified severity, without behavioral disturbance, psychotic disturbance, mood disturbance, and anxiety; B96.20 Unspecified Escherichia coli [E. coli] as the cause of diseases classified elsewhere; Z16.12 Extended spectrum beta lactamase (ESBL) resistance; K21.9 Gastro-esophageal reflux disease without esophagitis; I11.0 Hypertensive heart disease with heart failure; N39.3 Stress incontinence (female) (male); J45.909 Unspecified asthma, uncomplicated; K57.90 Diverticulosis of intestine, part unspecified, without perforation or abscess without bleeding; I87.2 Venous insufficiency (chronic) (peripheral); M19.91 Primary osteoarthritis, unspecified site; R26.9 Unspecified abnormalities of gait and mobility; E66.9 Obesity, unspecified; Z68.34 Body mass index [BMI] 34.0-34.9, adult; Z79.01 Long term (current) use of anticoagulants; Z79.899 Other long term (current) drug therapy; Z86.718 Personal history of other venous thrombosis and embolism; Z86.73 Personal history of transient ischemic attack (TIA), and cerebral infarction without residual deficits; Z88.0 Allergy status to penicillin; Z88.7 Allergy status to serum and vaccine; Z90.49 Acquired absence of other specified parts of digestive tract; Z98.51 Tubal ligation status; Z98.42 Cataract extraction status, left eye; Z98.41 Cataract extraction status, right eye; Z96.1 Presence of intraocular lens; Z87.440 Personal history of urinary (tract) infections; Z90.710 Acquired absence of both cervix and uterus; Z86.59 Personal history of other mental and behavioral disorders; Z82.49 Family history of ischemic heart disease and other diseases of the circulatory system; Z82.5 Family history of asthma and other chronic lower respiratory diseases; Z80.0 Family history of malignant neoplasm of digestive organs; Z83.2 Family history of diseases of the blood and blood-forming organs and certain disorders involving the immune mechanism; Z80.52 Family history of malignant neoplasm of bladder
CPT/HCPCS: 36410; 76937; 80048; 80053; 81001; 83605; 85025; 85610; 85730; 87040; 87077; 87086; 87186; 96365; 99284

== ENCOUNTER 2019-04-07 16:18 | Inpatient (IN) | payer MEDICARE, OTHER ==
[2019-04-07 18:00] LABS: Amorphous Sediment,Urine Rare /hpf; Appearance,Urine Clear (Clear); Bacteria,Urine Rare /hpf; Bilirubin,Urine Negative (Negative); Blood,Urine Negative (Negative); Color,Urine Light Yellow; Glucose,Urine (UA) Negative (Negative); Hyaline Casts,Urine 1 /lpf (0-2); Ketones,Urine Negative (Negative); Leukocyte Esterase,Urine Moderate (Negative); Nitrite,Urine Negative (Negative); Protein,Urine Negative (Negative); RBC,Urine 1 /hpf (0-5); Specific Gravity,Urine 1.012 (1.001-1.035); Squamous Epithelial Cell,Urine 1 /hpf (0-4); Urobilinogen,Urine <2.0 mg/dL (<2.0)
--- NOTE | 2019-04-07 18:22 | ED ---
General Adult HPI - General Chief complaint: Urogenital Stated complaint: UTI Source: family Limitations: no limitations - History of Present Illness Initial comments: The patient is a 78-year-old female who presents to the emergency department with report of the suprapubic cramping and burning. She reports increased frequency of urination. Also states that she had a low-grade fever at home today. She was recently hospitalized in the middle of March for a urinary tract infection. She has a history of ESBL. Last urine culture demonstrated sensitivity only to IV antibiotics. She was on Invanz through a PICC line and sent to [facility]. States she's been home from [facility] for one week. She has been off of the antibiotics for the same amount of time. She had recurrence of her symptoms starting last night. States it feels consistent with her previous infection. Reports that she's had increased weakness. She admits to a chronic productive cough. Denies any headache or vision changes. There's been no report of confusion. Denies any changes in her bowel habits to include diarrhea, constipation, melanotic stools or hematochezia. No abnormal vaginal bleeding or discharge. She does have some bruising noted to her bilateral upper extremities. 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 States that during her last hospital admission her INR was elevated and she had to hold medication. She is concerned that may be high again. There are no other alleviating, precipitating or modifying factors - Related Data Home Medications Medication Instructions Recorded Confirmed Carbidopa-Levodopa ER 25-100Mg 1 tab PO QID 01/11/19 04/07/19 [Sinemet CR 25-100 mg] Omeprazole [PriLOSEC] 20 mg PO BID 01/11/19 04/07/19 Mirabegron [Myrbetriq] 25 mg PO HS 02/11/19 04/07/19 Sennosides-Docusate Sodium 1 tab PO DAILY PRN 02/11/19 04/07/19 [Senokot-S] Acetaminophen Tab [Tylenol] 500 mg PO TID PRN 02/19/19 04/07/19 Bisacodyl [Dulcolax] 5 mg PO BID 02/19/19 04/07/19 Cholecalciferol [Vitamin D3 (25 2,000 unit PO DAILY 02/19/19 04/07/19 Mcg = 1000 Iu)] Lisinopril-Hctz 10-12.5 mg 1 tab PO DAILY 03/09/19 04/07/19 [Zestoretic 10-12.5] Warfarin Sodium [Coumadin] 1.25 mg PO MOTUWE 04/07/19 04/07/19 Warfarin [Coumadin] 2.5 mg PO SUTHFRSA 04/07/19 04/07/19 Previous Rx's Medication Instructions Recorded Spironolactone [Aldactone] 25 mg PO DAILY tab 01/25/19 Ertapenem [INVanz] 1 gm IVPB Q24H #12 bag 04/11/19 Allergies Allergy/AdvReac Type Severity Reaction Status Date / Time Influenza Virus Vaccines Allergy Swelling Verified 04/07/19 22:43 Iodinated Contrast- Oral and Allergy Chest Pain Verified 04/07/19 22:43 IV Dye Penicillins Allergy Anaphylaxis Verified 04/07/19 22:43 Review of Systems ROS Statement: Those systems with pertinent positive or pertinent negative responses have been documented in the HPI. ROS Other: All systems not noted in ROS Statement are negative. Past Medical History Past Medical History: Asthma, Heart Failure, CVA/TIA, Deep Vein Thrombosis (DVT), GERD/Reflux, Hypertension, Memory Impairment, Musculoskeletal Disorder, Neurologic Disorder, Osteoarthritis (OA) Additional Past Medical History / Comment(s): Ulcerative colitis, diverticulitis, parkinson's disease, CVA which pt was unaware of having-showed on cat scan, several DVTs bilateral legs and pt states since she has had intermittent bilateral ankle edema, thrombophlebitis, PE-pt cannot recall laterallity, generalized arthritis, urinary leakage, a few UTIs. History of Any Multi-Drug Resistant Organisms: ESBL Date of last positivie culture/infection: 03/09/2019 MDRO Source:: Urine Past Surgical History: Cholecystectomy, Hysterectomy, Orthopedic Surgery, Tubal Ligation Additional Past Surgical History / Comment(s): L shoulder injury with surgery to repair, removals of DVTs bilateral legs, cataract removal/lens implants, colonoscopies. Past Anesthesia/Blood Transfusion Reactions: Postoperative Nausea & Vomiting (PONV) Additional Past Anesthesia/Blood Transfusion Reaction / Comment(s): Pt received blood with hysterectomy without reaction. Past Psychological History: Anxiety Smoking Status: Never smoker Past Alcohol Use History: None Reported Past Drug Use History: None Reported - Past Family History Father Family Medical History: Asthma, Cancer, COPD Additional Family Medical History / Comment(s): Gallbladder cancer Mother Family Medical History: Myocardial Infarction (NV) Additional Family Medical History / Comment(s): Mother of a NV at the age of 48 yrs. Sister(s) Additional Family Medical History / Comment(s): Sister of a blood clot at age 38 yrs-pt cannot recall specifics. General Exam Limitations: no limitations General appearance: alert, in no apparent distress Head exam: Present: atraumatic, normocephalic, normal inspection Eye exam: Present: normal appearance, PERRL, EOMI. Absent: scleral icterus, conjunctival injection, periorbital swelling ENT exam: Present: normal exam, mucous membranes moist Neck exam: Present: normal inspection. Absent: tenderness, meningismus, lymphadenopathy Respiratory exam: Present: normal lung sounds bilaterally. Absent: respiratory distress, wheezes, rales, rhonchi, stridor Cardiovascular Exam: Present: regular rate, normal rhythm, normal heart sounds. Absent: systolic murmur, diastolic murmur, rubs, gallop, clicks GI/Abdominal exam: Present: soft, tenderness (to the suprapubic region. No peritoneal signs), normal bowel sounds. Absent: distended, guarding, rebound, rigid Extremities exam: Present: normal inspection, full ROM, normal capillary refill. Absent: tenderness, pedal edema, joint swelling, calf tenderness Back exam: Present: normal inspection Neurological exam: Present: alert, oriented X3, CN II-XII intact Psychiatric exam: Present: normal affect, normal mood Skin exam: Present: warm, dry, intact, normal color, other (ecchymosis bilateral forearms). Absent: rash Course Vital Signs 04/07/19 04/07/19 16:23 20:34 Temperature 98.5 F 98.6 F Pulse Rate 68 73 Respiratory 18 17 Rate Blood Pressure 145/79 185/75 O2 Sat by Pulse 99 96 Oximetry Medical Decision Making - Medical Decision Making Upon arrival the patient is placed in room 23. She is hooked up to continuous pulse ox and cardiac monitoring. She is given Tylenol for pain control. I did recommend laboratory studies, urinalysis and a ultrasound of the patient's kidneys and bladder. I did review the patient's results. They're discussed with her. Ultrasound of the kidneys and bladder is unremarkable. Blood work shows an INR of 3. She has moderate leukocyte esterase in her urine as well as 27 white blood cells. I did review the patient's urine culture. It does show that she is sensitive to Macrobid. Discussed starting this medication with the patient however she does tell me that she has an ALLERGY to it. As the patient's urine is only sensitive to IV antibiotics and she does present with Symptoms consistent with a urinary tract infection I did call discuss case with Dr. Levy. He did accept admission for the patient. I will place Dr. Pruett on consult. I did obtain a blood cultures and initiated the patient on Invanz. She remained in stable condition was transported to the floor - Lab Data Result diagrams: 04/08/19 07:43 04/08/19 07:43 Lab Results 04/07/19 04/07/19 04/07/19 Range/Units 17:10 18:25 18:25 WBC 7.5 (3.8-10.6) k/uL RBC 4.42 (3.80-5.40) m/uL Hgb 13.4 (11.4-16.0) gm/dL Hct 38.9 (34.0-46.0) % MCV 87.9 (80.0-100.0) fL MCH 30.2 (25.0-35.0) pg MCHC 34.4 (31.0-37.0) g/dL RDW 14.5 (11.5-15.5) % Plt Count 248 (150-450) k/uL Neutrophils % 65 % Lymphocytes % 26 % Monocytes % 5 % Eosinophils % 2 % Basophils % 1 % Neutrophils # 4.9 (1.3-7.7) k/uL Lymphocytes # 2.0 (1.0-4.8) k/uL Monocytes # 0.3 (0-1.0) k/uL Eosinophils # 0.1 (0-0.7) k/uL Basophils # 0.1 (0-0.2) k/uL PT (9.0-12.0) sec INR (<1.2) APTT (22.0-30.0) sec Sodium 137 (137-145) mmol/L Potassium 4.4 (3.5-5.1) mmol/L Chloride 101 (98-107) mmol/L Carbon Dioxide 26 (22-30) mmol/L Anion Gap 10 mmol/L BUN 28 H (7-17) mg/dL Creatinine 0.77 (0.52-1.04) mg/dL Est GFR (CKD-EPI)AfAm 86 (>60 ml/min/1.73 sqM) Est GFR (CKD-EPI)NonAf 74 (>60 ml/min/1.73 sqM) Glucose 96 (74-99) mg/dL Plasma Lactic Acid Abdiaziz (0.7-2.0) mmol/L Calcium 9.5 (8.4-10.2) mg/dL Total Bilirubin 0.6 (0.2-1.3) mg/dL AST 19 (14-36) U/L ALT 17 (9-52) U/L Alkaline Phosphatase 59 (38-126) U/L Total Protein 7.3 (6.3-8.2) g/dL Albumin 4.3 (3.5-5.0) g/dL Urine Color Light Yellow Urine Appearance Clear (Clear) Urine pH 7.0 (5.0-8.0) Ur Specific [place] 1.012 (1.001-1.035) Urine Protein Negative (Negative) Urine Glucose (UA) Negative (Negative) Urine Ketones Negative (Negative) Urine Blood Negative (Negative) Urine Nitrite Negative (Negative) Urine Bilirubin Negative (Negative) Urine Urobilinogen <2.0 (<2.0) mg/dL Ur Leukocyte Esterase Moderate H (Negative) Urine RBC 1 (0-5) /hpf Urine WBC 27 H (0-5) /hpf Ur Squamous Epith Cells 1 (0-4) /hpf Amorphous Sediment Rare H (None) /hpf Urine Bacteria Rare H (None) /hpf Hyaline Casts 1 (0-2) /lpf 04/07/19 04/07/19 04/08/19 Range/Units 18:25 18:25 07:43 WBC 7.9 (3.8-10.6) k/uL RBC 4.44 (3.80-5.40) m/uL Hgb 13.5 (11.4-16.0) gm/dL Hct 39.4 (34.0-46.0) % MCV 88.9 (80.0-100.0) fL MCH 30.5 (25.0-35.0) pg MCHC 34.3 (31.0-37.0) g/dL RDW 14.6 (11.5-15.5) % Plt Count 267 (150-450) k/uL Neutrophils % 62 % Lymphocytes % 28 % Monocytes % 5 % Eosinophils % 3 % Basophils % 1 % Neutrophils # 4.9 (1.3-7.7) k/uL Lymphocytes # 2.2 (1.0-4.8) k/uL Monocytes # 0.4 (0-1.0) k/uL Eosinophils # 0.2 (0-0.7) k/uL Basophils # 0.1 (0-0.2) k/uL PT 28.7 H (9.0-12.0) sec INR 3.0 H (<1.2) APTT 34.8 H (22.0-30.0) sec Sodium (137-145) mmol/L Potassium (3.5-5.1) mmol/L Chloride (98-107) mmol/L Carbon Dioxide (22-30) mmol/L Anion Gap mmol/L BUN (7-17) mg/dL Creatinine (0.52-1.04) mg/dL Est GFR (CKD-EPI)AfAm (>60 ml/min/1.73 sqM) Est GFR (CKD-EPI)NonAf (>60 ml/min/1.73 sqM) Glucose (74-99) mg/dL Plasma Lactic Acid Abdiaziz 0.8 (0.7-2.0) mmol/L Calcium (8.4-10.2) mg/dL Total Bilirubin (0.2-1.3) mg/dL AST (14-36) U/L ALT (9-52) U/L Alkaline Phosphatase (38-126) U/L Total Protein (6.3-8.2) g/dL Albumin (3.5-5.0) g/dL Urine Color Urine Appearance (Clear) Urine pH (5.0-8.0) Ur Specific [place] (1.001-1.035) Urine Protein (Negative) Urine Glucose (UA) (Negative) Urine Ketones (Negative) Urine Blood (Negative) Urine Nitrite (Negative) Urine Bilirubin (Negative) Urine Urobilinogen (<2.0) mg/dL Ur Leukocyte Esterase (Negative) Urine RBC (0-5) /hpf Urine WBC (0-5) /hpf Ur Squamous Epith Cells (0-4) /hpf Amorphous Sediment (None) /hpf Urine Bacteria (None) /hpf Hyaline Casts (0-2) /lpf 04/08/19 04/08/19 04/09/19 Range/Units 07:43 07:43 11:30 WBC (3.8-10.6) k/uL RBC (3.80-5.40) m/uL Hgb (11.4-16.0) gm/dL Hct (34.0-46.0) % MCV (80.0-100.0) fL MCH (25.0-35.0) pg MCHC (31.0-37.0) g/dL RDW (11.5-15.5) % Plt Count (150-450) k/uL Neutrophils % % Lymphocytes % % Monocytes % % Eosinophils % % Basophils % % Neutrophils # (1.3-7.7) k/uL Lymphocytes # (1.0-4.8) k/uL Monocytes # (0-1.0) k/uL Eosinophils # (0-0.7) k/uL Basophils # (0-0.2) k/uL PT 25.0 H 29.4 H (9.0-12.0) sec INR 2.6 H 3.0 H (<1.2) APTT (22.0-30.0) sec Sodium 139 (137-145) mmol/L Potassium 4.4 (3.5-5.1) mmol/L Chloride 101 (98-107) mmol/L Carbon Dioxide 29 (22-30) mmol/L Anion Gap 9 mmol/L BUN 22 H (7-17) mg/dL Creatinine 0.84 (0.52-1.04) mg/dL Est GFR (CKD-EPI)AfAm 77 (>60 ml/min/1.73 sqM) Est GFR (CKD-EPI)NonAf 67 (>60 ml/min/1.73 sqM) Glucose 120 H (74-99) mg/dL Plasma Lactic Acid Abdiaziz (0.7-2.0) mmol/L Calcium 9.6 (8.4-10.2) mg/dL Total Bilirubin (0.2-1.3) mg/dL AST (14-36) U/L ALT (9-52) U/L Alkaline Phosphatase (38-126) U/L Total Protein (6.3-8.2) g/dL Albumin (3.5-5.0) g/dL Urine Color Urine Appearance (Clear) Urine pH (5.0-8.0) Ur Specific [place] (1.001-1.035) Urine Protein (Negative) Urine Glucose (UA) (Negative) Urine Ketones (Negative) Urine Blood (Negative) Urine Nitrite (Negative) Urine Bilirubin (Negative) Urine Urobilinogen (<2.0) mg/dL Ur Leukocyte Esterase (Negative) Urine RBC (0-5) /hpf Urine WBC (0-5) /hpf Ur Squamous Epith Cells (0-4) /hpf Amorphous Sediment (None) /hpf Urine Bacteria (None) /hpf Hyaline Casts (0-2) /lpf 04/10/19 04/11/19 Range/Units 09:07 08:22 WBC (3.8-10.6) k/uL RBC (3.80-5.40) m/uL Hgb (11.4-16.0) gm/dL Hct (34.0-46.0) % MCV (80.0-100.0) fL MCH (25.0-35.0) pg MCHC (31.0-37.0) g/dL RDW (11.5-15.5) % Plt Count (150-450) k/uL Neutrophils % % Lymphocytes % % Monocytes % % Eosinophils % % Basophils % % Neutrophils # (1.3-7.7) k/uL Lymphocytes # (1.0-4.8) k/uL Monocytes # (0-1.0) k/uL Eosinophils # (0-0.7) k/uL Basophils # (0-0.2) k/uL PT 25.4 H 24.5 H (9.0-12.0) sec INR 2.6 H 2.5 H (<1.2) APTT (22.0-30.0) sec Sodium (137-145) mmol/L Potassium (3.5-5.1) mmol/L Chloride (98-107) mmol/L Carbon Dioxide (22-30) mmol/L Anion Gap mmol/L BUN (7-17) mg/dL Creatinine (0.52-1.04) mg/dL Est GFR (CKD-EPI)AfAm (>60 ml/min/1.73 sqM) Est GFR (CKD-EPI)NonAf (>60 ml/min/1.73 sqM) Glucose (74-99) mg/dL Plasma Lactic Acid Badiaziz (0.7-2.0) mmol/L Calcium (8.4-10.2) mg/dL Total Bilirubin (0.2-1.3) mg/dL AST (14-36) U/L ALT (9-52) U/L Alkaline Phosphatase (38-126) U/L Total Protein (6.3-8.2) g/dL Albumin (3.5-5.0) g/dL Urine Color Urine Appearance (Clear) Urine pH (5.0-8.0) Ur Specific [place] (1.001-1.035) Urine Protein (Negative) Urine Glucose (UA) (Negative) Urine Ketones (Negative) Urine Blood (Negative) Urine Nitrite (Negative) Urine Bilirubin (Negative) Urine Urobilinogen (<2.0) mg/dL Ur Leukocyte Esterase (Negative) Urine RBC (0-5) /hpf Urine WBC (0-5) /hpf Ur Squamous Epith Cells (0-4) /hpf Amorphous Sediment (None) /hpf Urine Bacteria (None) /hpf Hyaline Casts (0-2) /lpf Disposition Clinical Impression: Urinary tract infection, UTI due to extended-spectrum beta lactamase (ESBL) producing Escherichia coli Disposition: ADMITTED IP TO THIS [facility] Condition: Stable Is patient prescribed a controlled substance at d/c from ED?: No Decision to Admit Reason: Admit from EC Decision Date: 04/07/19 Decision Time: 20:41
--- NOTE | 2019-04-07 18:28 | US ---
EXAMINATION TYPE: US kidneys/renal and bladder DATE OF EXAM: 04/07/2019 COMPARISON: NONE CLINICAL HISTORY: Pain. Lower abdominal pain x 4 days. HTN. EXAM MEASUREMENTS: Right Kidney: 10.1 x 4.3 x 4.3 cm Left Kidney: 11.0 x 5.7 x 5.1 cm Limited study due to patient's inability to be in proper position for exam. Patient had to void be fore exam, bladder not fully distended. Right Kidney: Hypoechoic area seen upper pole measurin.2 x 1.1 x 1.5 cm. Left Kidney: No hydronephrosis or masses seen Bladder: appears anechoic. not fully distended. Bilateral Jets seen: Yes IMPRESSION: There is complex cyst upper pole right kidney. This could probably be followed conservatively with ul trasound if clinically indicated. No hydronephrosis. No evidence of a solid renal mass.
[2019-04-07 18:42] LABS: Basophils # (A) 0.1 k/uL (0-0.2); Basophils % (A) 1 %; Eosinophils # (A) 0.1 k/uL (0-0.7); Eosinophils % (A) 2 %; HCT 38.9 % (34.0-46.0); HGB 13.4 gm/dL (11.4-16.0); Lymphocytes % (A) 26 %; MCH 30.2 pg (25.0-35.0); MCHC 34.4 g/dL (31.0-37.0); MCV 87.9 fL (80.0-100.0); Mean Platelet Volume 6.6; Monocytes # (A) 0.3 k/uL (0-1.0); Monocytes % (A) 5 %; Neutrophils # (A) 4.9 k/uL (1.3-7.7); Neutrophils % (A) 65 %; Platelet Count 248 k/uL (150-450); RBC 4.42 m/uL (3.80-5.40); RDW 14.5 % (11.5-15.5); WBC 7.5 k/uL (3.8-10.6)
[2019-04-07 18:51] LABS: Albumin 4.3 g/dL (3.5-5.0); Calcium 9.5 mg/dL (8.4-10.2); Potassium 4.4 mmol/L (3.5-5.1); Total Bilirubin 0.6 mg/dL (0.2-1.3); Total Protein 7.3 g/dL (6.3-8.2)
[2019-04-07 18:58] LABS: Partial Thromboplastin Time 34.8 sec (22.0-30.0); Prothrombin Time 28.7 sec (9.0-12.0)
[2019-04-07] MEDS ORDERED: ERTAPENEM 1 GM in SODIUM CHLORIDE 0.9% 50 ML IVPB STA (20:37)
[2019-04-07] MEDS ORDERED: NALOXONE 0.4 MG/ML 1 ML VIAL IV PRN (20:38)
[2019-04-07] MEDS ORDERED: SENNOSIDES-DOCUSATE SODIUM 1 EACH TAB PO PRN (20:39)
[2019-04-07] MEDS: ACETAMINOPHEN TAB 325 MG TAB PO PRN (21:22)
[2019-04-07] MEDS ORDERED: WARFARIN 1.25 MG TAB PO SCH (21:30)
[2019-04-07] MEDS: PANTOPRAZOLE 40 MG TABLET PO SCH (21:52)
[2019-04-07] MEDS: CARBIDOPA-LEVODOPA ER 25-100MG 1 EACH TABLET.ER PO SCH (21:52)
[2019-04-07] MEDS: NON-FORMULARY DRUG (Mirabegron [Myrbetriq] 25 MG) PO SCH (21:54)
[2019-04-07 22:43] VITALS: BMI 33.3
[2019-04-08] MEDS: BISACODYL 5 MG TABLET.DR PO SCH ×3 (01:32→20:36)
[2019-04-08] MEDS: PANTOPRAZOLE 40 MG TABLET PO SCH (07:21)
[2019-04-08] MEDS: CARBIDOPA-LEVODOPA ER 25-100MG 1 EACH TABLET.ER PO SCH ×4 (07:22→20:36)
[2019-04-08 08:07] LABS: Basophils # (A) 0.1 k/uL (0-0.2); Basophils % (A) 1 %; Eosinophils # (A) 0.2 k/uL (0-0.7); Eosinophils % (A) 3 %; HCT 39.4 % (34.0-46.0); HGB 13.5 gm/dL (11.4-16.0); Lymphocytes # (A) 2.2 k/uL (1.0-4.8); Lymphocytes % (A) 28 %; MCH 30.5 pg (25.0-35.0); MCHC 34.3 g/dL (31.0-37.0); MCV 88.9 fL (80.0-100.0); Mean Platelet Volume 6.7; Monocytes # (A) 0.4 k/uL (0-1.0); Monocytes % (A) 5 %; Neutrophils # (A) 4.9 k/uL (1.3-7.7); Neutrophils % (A) 62 %; Platelet Count 267 k/uL (150-450); RBC 4.44 m/uL (3.80-5.40); RDW 14.6 % (11.5-15.5); WBC 7.9 k/uL (3.8-10.6)
[2019-04-08 08:15] LABS: INR 2.6 (<1.2)
[2019-04-08 08:22] LABS: Calcium 9.6 mg/dL (8.4-10.2); Potassium 4.4 mmol/L (3.5-5.1)
[2019-04-08] MEDS: SPIRONOLACTONE 25 MG TAB PO SCH (09:12)
--- NOTE | 2019-04-08 09:12 | P.CONS ---
History of Present Illness - Reason for Consult Consult date: 04/08/19 UTI, history of ESBL - History of Present Illness This is a 78-year-old female patient well known to ID service as she was recently seen during her hospitalization in March for ESBL E. coli. Patient was discharged on Invanz to complete 7 more days and was discharged to [facility]. Patient states that she will completed her antibiotics, midline was discontinued and about 2 weeks ago she was discharged back home with her daughter. Patient states that she was feeling much improved until she woke up a couple days ago and noticed that she had decreased urine output, burning with urination, subjective fever and chills, left-sided abdominal discomfort and flank discomfort. She has also had decreased appetite. Patient came into [facility] emergency center for evaluation found to be afebrile , white count 7.9, INR 2.6. Patient is on chronic Coumadin for DVTs. Creatinine 0.77. Urinalysis revealed 2+ trace moderate, WBCs 27, bacteria rare. A urine culture and blood culture in progress. Patient did receive 1 dose of Invanz in the emergency center. Review of Systems Constitutional: Reports chills, Reports fatigue, Reports fever, Reports malaise, Reports poor appetite, Reports weakness Ears, nose, mouth and throat: Denies dysphagia, Denies headache, Denies nasal congestion, Denies nasal discharge, Denies sore throat, Denies vertigo Cardiovascular: Denies chest pain, Denies decreased exercise tolerance, Denies dyspnea on exertion, Denies edema, Denies leg edema, Denies lightheadedness, Den ies shortness of breath, Denies syncope Respiratory: Denies cough, Denies cough with sputum, Denies dyspnea, Denies excessive sputum, Denies hemoptysis, Denies home oxygen, Denies wheezing Gastrointestinal: Reports abdominal pain, Reports constipation, Reports loss of appetite, Denies diarrhea, Denies nausea, Denies vomiting Genitourinary: Reports dysuria, Reports flank pain, Reports urinary frequency Musculoskeletal: Denies frequent falls, Denies gait dysfunction, Denies muscle weakness, Denies myalgias Integumentary: Denies pruritus, Denies rash, Denies wounds Neurological: Denies change in mentation, Denies confusion, Denies gait dysfunction, Denies numbness, Denies weakness Psychiatric: Denies anxiety, Denies depression Past Medical History Past Medical History: Asthma, Heart Failure, CVA/TIA, Deep Vein Thrombosis (DVT), GERD/Reflux, Hypertension, Memory Impairment, Musculoskeletal Disorder, Neurologic Disorder, Osteoarthritis (OA) Additional Past Medical History / Comment(s): Ulcerative colitis, diverticulitis, parkinson's disease, CVA which pt was unaware of having-showed on cat scan, several DVTs bilateral legs and pt states since she has had intermittent bilateral ankle edema, thrombophlebitis, PE-pt cannot recall laterallity, generalized arthritis, urinary leakage, a few UTIs. History of Any Multi-Drug Resistant Organisms: ESBL Year Discovered:: 03/09/2019 MDRO Source:: Urine Past Surgical History: Cholecystectomy, Hysterectomy, Orthopedic Surgery, Tubal Ligation Additional Past Surgical History / Comment(s): L shoulder injury with surgery to repair, removals of DVTs bilateral legs, cataract removal/lens implants, colonoscopies. Past Anesthesia/Blood Transfusion Reactions: Postoperative Nausea & Vomiting (PONV) Additional Past Anesthesia/Blood Transfusion Reaction / Comm: Pt received blood with hysterectomy without reaction. Past Psychological History: Anxiety Additional Psychological History / Comment(s): Pt resides with her daughter. She moved here from [place] to live with her steven 3 yrs ago. She ambulates with a walker. She no longer drives, her steven takes her to app. She is otherwise independent. Retired. Nonsmoker. No experience. No animal exposures. No travel Smoking Status: Never smoker Past Alcohol Use History: None Reported Past Drug Use History: None Reported - Past Family History Father Family Medical History: Asthma, Cancer, COPD Additional Family Medical History / Comment(s): Gallbladder cancer Mother Family Medical History: Myocardial Infarction ([place]) Additional Family Medical History / Comment(s): Mother of a [place] at the age of 48 yrs. Sister(s) Additional Family Medical History / Comment(s): Sister of a blood clot at age 38 yrs-pt cannot recall specifics. Medications and Allergies Home Medications Medication Instructions Recorded Confirmed Type Carbidopa-Levodopa ER 25-100Mg 1 tab PO QID 01/11/19 04/07/19 History [Sinemet CR 25-100 mg] Omeprazole [PriLOSEC] 20 mg PO BID 01/11/19 04/07/19 History Spironolactone [Aldactone] 25 mg PO DAILY tab 01/25/19 04/07/19 Rx Mirabegron [Myrbetriq] 25 mg PO HS 02/11/19 04/07/19 History Sennosides-Docusate Sodium 1 tab PO DAILY PRN 02/11/19 04/07/19 History [Senokot-S] Acetaminophen Tab [Tylenol] 500 mg PO TID PRN 02/19/19 04/07/19 History Bisacodyl [Dulcolax] 5 mg PO BID 02/19/19 04/07/19 History Cholecalciferol [Vitamin D3 (25 2,000 unit PO DAILY 02/19/19 04/07/19 History Mcg = 1000 Iu)] Lisinopril-Hctz 10-12.5 mg 1 tab PO DAILY 03/09/19 04/07/19 History [Zestoretic 10-12.5] Warfarin Sodium [Coumadin] 1.25 mg PO MOTUWE 04/07/19 04/07/19 History Warfarin [Coumadin] 2.5 mg PO SUTHFRSA 04/07/19 04/07/19 History Allergies Allergy/AdvReac Type Severity Reaction Status Date / Time Influenza Virus Vaccines Allergy Swelling Verified 04/07/19 22:43 Iodinated Contrast- Oral and Allergy Chest Pain Verified 04/07/19 22:43 IV Dye Penicillins Allergy Anaphylaxis Verified 04/07/19 22:43 Physical Exam Vitals: Vital Signs Temp Pulse Pulse Resp BP BP Pulse Ox 04/08/19 01:40 58 L 18 04/07/19 22:51 58 L 18 04/07/19 22:21 97.3 F L 58 L 18 157/71 95 04/07/19 20:34 98.6 F 73 17 185/75 96 04/07/19 16:23 98.5 F 68 18 145/79 99 Intake and Output 04/07/19 04/08/19 04/08/19 22:59 06:59 14:59 Other: Voiding Method Bedside Commode Bedside Commode # Voids 1 1 1 Weight 85.275 kg Gen: This is a 78-year-old female. Patient is sleepy but awakens easily to verbal stimuli. She appears to be in no acute distress. HEENT: Head is atraumatic, normocephalic. Pupils equal, round. Sclerae is anicteric. Oral mucous membranes are moist. Patient has had significant dental work. NECK: Supple. No JVD. No lymphadenopathy. No thyromegaly. LUNGS: Clear to auscultation. No wheezes or rhonchi. No intercostal retractions. HEART: Regular rate and rhythm. No murmur. ABDOMEN: Soft. Bowel sounds are present. No masses. Mild tenderness and is to the left mid abdomen and suprapubic area, mild left CVA tenderness. EXTREMITIES: No pedal edema. No calf tenderness. Dorsalis pedis +2 bilaterally. NEUROLOGICAL: Patient is awake, alert and oriented x3. Cranial nerves 2 through 12 are grossly intact. Results Results: Laboratory Results WBC 7.9 k/uL (3.8-10.6) 04/08/19 07:43 RBC 4.44 m/uL (3.80-5.40) 04/08/19 07:43 Hgb 13.5 gm/dL (11.4-16.0) 04/08/19 07:43 Hct 39.4 % (34.0-46.0) 04/08/19 07:43 MCV 88.9 fL (80.0-100.0) 04/08/19 07:43 MCH 30.5 pg (25.0-35.0) 04/08/19 07:43 MCHC 34.3 g/dL (31.0-37.0) 04/08/19 07:43 RDW 14.6 % (11.5-15.5) 04/08/19 07:43 Plt Count 267 k/uL (150-450) 04/08/19 07:43 Neutrophils % 62 % 04/08/19 07:43 Lymphocytes % 28 % 04/08/19 07:43 Monocytes % 5 % 04/08/19 07:43 Eosinophils % 3 % 04/08/19 07:43 Basophils % 1 % 04/08/19 07:43 Neutrophils # 4.9 k/uL (1.3-7.7) 04/08/19 07:43 Lymphocytes # 2.2 k/uL (1.0-4.8) 04/08/19 07:43 Monocytes # 0.4 k/uL (0-1.0) 04/08/19 07:43 Eosinophils # 0.2 k/uL (0-0.7) 04/08/19 07:43 Basophils # 0.1 k/uL (0-0.2) 04/08/19 07:43 PT 25.0 sec (9.0-12.0) H 04/08/19 07:43 INR 2.6 (<1.2) H 04/08/19 07:43 APTT 34.8 sec (22.0-30.0) H 04/07/19 18:25 Sodium 139 mmol/L (137-145) 04/08/19 07:43 Potassium 4.4 mmol/L (3.5-5.1) 04/08/19 07:43 Chloride 101 mmol/L (98-107) 04/08/19 07:43 Carbon Dioxide 29 mmol/L (22-30) 04/08/19 07:43 Anion Gap 9 mmol/L 04/08/19 07:43 BUN 22 mg/dL (7-17) H 04/08/19 07:43 Creatinine 0.84 mg/dL (0.52-1.04) 04/08/19 07:43 Est GFR (CKD-EPI)AfAm 77 (>60 ml/min/1.73 sqM) 04/08/19 07:43 Est GFR (CKD-EPI)NonAf 67 (>60 ml/min/1.73 sqM) 04/08/19 07:43 Glucose 120 mg/dL (74-99) H 04/08/19 07:43 Plasma Lactic Acid Abdiaziz 0.8 mmol/L (0.7-2.0) 04/07/19 18:25 Calcium 9.6 mg/dL (8.4-10.2) 04/08/19 07:43 Total Bilirubin 0.6 mg/dL (0.2-1.3) 04/07/19 18:25 AST 19 U/L (14-36) 04/07/19 18:25 ALT 17 U/L (9-52) 04/07/19 18:25 Alkaline Phosphatase 59 U/L (38-126) 04/07/19 18:25 Total Protein 7.3 g/dL (6.3-8.2) 04/07/19 18:25 Albumin 4.3 g/dL (3.5-5.0) 04/07/19 18:25 Urine Color Light Yellow 04/07/19 17:10 Urine Appearance Clear (Clear) 04/07/19 17:10 Urine pH 7.0 (5.0-8.0) 04/07/19 17:10 Ur Specific [place] 1.012 (1.001-1.035) 04/07/19 17:10 Urine Protein Negative (Negative) 04/07/19 17:10 Urine Glucose (UA) Negative (Negative) 04/07/19 17:10 Urine Ketones Negative (Negative) 04/07/19 17:10 Urine Blood Negative (Negative) 04/07/19 17:10 Urine Nitrite Negative (Negative) 04/07/19 17:10 Urine Bilirubin Negative (Negative) 04/07/19 17:10 Urine Urobilinogen <2.0 mg/dL (<2.0) 04/07/19 17:10 Ur Leukocyte Esterase Moderate (Negative) H 04/07/19 17:10 Urine RBC 1 /hpf (0-5) 04/07/19 17:10 Urine WBC 27 /hpf (0-5) H 04/07/19 17:10 Ur Squamous Epith Cells 1 /hpf (0-4) 04/07/19 17:10 Amorphous Sediment Rare /hpf (None) H 04/07/19 17:10 Urine Bacteria Rare /hpf (None) H 04/07/19 17:10 Hyaline Casts 1 /lpf (0-2) 04/07/19 17:10 CBC & Chem 7: 04/08/19 07:43 04/08/19 07:43 Labs: Abnormal Lab Results - Last 24 Hours (Table) 04/07/19 04/07/19 04/07/19 Range/Units 17:10 18:25 18:25 PT 28.7 H (9.0-12.0) sec INR 3.0 H (<1.2) APTT 34.8 H (22.0-30.0) sec BUN 28 H (7-17) mg/dL Glucose (74-99) mg/dL Ur Leukocyte Esterase Moderate H (Negative) Urine WBC 27 H (0-5) /hpf Amorphous Sediment Rare H (None) /hpf Urine Bacteria Rare H (None) /hpf 04/08/19 04/08/19 Range/Units 07:43 07:43 PT 25.0 H (9.0-12.0) sec INR 2.6 H (<1.2) APTT (22.0-30.0) sec BUN 22 H (7-17) mg/dL Glucose 120 H (74-99) mg/dL Ur Leukocyte Esterase (Negative) Urine WBC (0-5) /hpf Amorphous Sediment (None) /hpf Urine Bacteria (None) /hpf Microbiology - Last 24 Hours (Table) 04/07/19 17:10 Urine Culture - Preliminary Urine,Voided Assessment and Plan Plan: This is a 78-year-old female presenting to the hospital with generalized symptoms secondary to underlying urinary tract infection most likely will be ESBL E. coli urinary tract infection. The patient was recently treated in March and completed her course of Invanz. Patient will be started on Invanz. A urine culture and blood culture are in progress. Continue supportive care. Further recommendations as patient progresses. The above dictated assessment and findings were discussed with Dr. Pruett. The impression and plan of care have been directed as dictated. Ami Burns nurse practitioner acting as scribe for Dr. Pruett.
[2019-04-08] MEDS: ACETAMINOPHEN TAB 325 MG TAB PO PRN ×2 (09:21→20:58)
[2019-04-08] MEDS: ERTAPENEM 1 GM in SODIUM CHLORIDE 0.9% 50 ML IVPB SCH (11:01)
[2019-04-08] MEDS: LISINOPRIL-HCTZ 10-12.5 MG 1 EACH TAB PO SCH (13:04)
[2019-04-08] MEDS: SODIUM CHLORIDE 0.9% 1,000 ML IV SCH (17:43)
[2019-04-08] MEDS ORDERED: WARFARIN 2.5 MG TAB PO SCH (18:00)
[2019-04-08] MEDS: NON-FORMULARY DRUG (Mirabegron [Myrbetriq] 25 MG) PO SCH (20:36)
--- NOTE | 2019-04-08 22:17 | P.HPIM ---
History of Present Illness H&P Date: 04/08/19 Chief Complaint: Urinary burning and frequency History of presenting complaint: This is a very pleasant 78-year-old patient of Dr. Benitez. Lives with her daughter. Chronic stable medical conditions include asthma hypertension osteoarthritis, diverticulosis, Parkinson's disease,. Patient also got chronic DVT and chronically on Coumadin. CHF with EF of 55-60% patient has chronic lower extremities swelling from venous insufficiency. Patient's had previous UTIs. Patient was here in March and urine did grow E. coli with ESBL. Was treated with Invanz. Patient was discharged to [facility]. Patient been home for about a week. For about 4 days patient started of with pelvic pain. Urinary frequency and burning. Discomfort. Low-grade fever. Decided to come in to the ER. UA came back positive. Because of repeated ESBL E. coli infection and requiring IV antibiotics. Decided to admit the patient and get an ID consultation. Patient appetite is gone down. Does feel weak and tired. Did have some chills at home Review of systems: GEN.: Tired, chills EYES: None HEENT: None NECK: None RESPIRATORY: None CARDIOVASCULAR: As above GASTROINTESTINAL: Heartburn GENITOURINARY: As above MUSCULOSKELETAL: Pain in the joints LYMPHATICS: None HEMATOLOGICAL: None PSYCHIATRY: None NEUROLOGICAL: Uses a walker Past medical history: Chronic DVT for which patient is on Coumadin, GERD, hypertension, mild cognitive impairment, osteoarthritis, Parkinson disease, urinary incontinence, CHF with EF of 55 to 60%, gait dysfunction uses a walker, lower extremity venous insuf ficiency, recurrent UTIs with ESBL/E. coli Social history: Lives with daughter. Does have a walker. No smoking or alcohol. Family history: Asthma COPD, bladder cancer Physical examination: VITAL SIGNS: 97.3, 58, 18, 157/71, 95% on room air GENERAL: BMI 33.3, laying in bed, tired appearing. EYES: Pupils equal. Conjunctiva normal. HEENT: External appearance of nose and ears normal, oral cavity grossly normal. NECK: JVD not raised; masses not palpable. HEART: First and second heart sounds are normal; edema present. LUNGS: Respiratory rate increased, decreased breath sounds ABDOMEN: Soft, minimal suprapubic tenderness, liver spleen not palpable, no masses palpable. LYMPHATICS: No lymph nodes palpable in the axilla and neck. PSYCH: Alert and oriented x3; mood and affect normal. NEUROLOGICAL: Cranial nerves grossly intact; no facial asymmetry, decreased part of the lower extremity that is 4/5, baseline tremors MUSCULOSKELETAL evidence of osteoarthritis in both the hands and knees Investigations reviewed in the clinical context: White count 7.90 with 13.5 INR 2.6 potassium 4.4 bun 22 creatinine 0.84 UA positive for leukoesterase, WBC Assessment: -Acute UTI with cystitis recurrent with previous cultures positive for E. coli/C has been treated with IV ertapenem -Chronic congestive heart failure from diastolic dysfunction EF 55-60% -Obesity BMI 34.5 -Chronic DVT for which patient chronically on Coumadin -GERD -Essential hypertension -Mild cognitive impairment from underlying Alzheimer's dementia -Primary osteoarthritis -Idiopathic Parkinson's disease -Chronic urinary stress incontinence -Chronic gait dysfunction uses a walker -Chronic lower extremity swelling from DVT that is from venous insufficiency Plan: Patient started and IV ertapenem. Home medications resumed. ID was consulted. Care was discussed with the patient. Patient's symptoms are slightly better since when she came in to the ER. Await urine culture. Past Medical History Past Medical History: Asthma, Heart Failure, CVA/TIA, Deep Vein Thrombosis ([place]), GERD/Reflux, Hypertension, Memory Impairment, Musculoskeletal Disorder, Neurologic Disorder, Osteoarthritis (OA) Additional Past Medical History / Comment(s): Ulcerative colitis, diverticulitis, parkinson's disease, CVA which pt was unaware of having-showed on cat scan, several DVTs bilateral legs and pt states since she has had intermittent bilateral ankle edema, thrombophlebitis, PE-pt cannot recall laterallity, generalized arthritis, urinary leakage, a few UTIs. History of Any Multi-Drug Resistant Organisms: ESBL Date of last positivie culture/infection: 03/09/2019 MDRO Source:: Urine Past Surgical History: Cholecystectomy, Hysterectomy, Orthopedic Surgery, Tubal Ligation Additional Past Surgical History / Comment(s): L shoulder injury with surgery to repair, removals of DVTs bilateral legs, cataract removal/lens implants, colonos copies. Past Anesthesia/Blood Transfusion Reactions: Postoperative Nausea & Vomiting (PONV) Additional Past Anesthesia/Blood Transfusion Reaction / Comment(s): Pt received blood with hysterectomy without reaction. Past Psychological History: Anxiety Additional Psychological History / Comment(s): Pt resides with her daughter. She moved here from [place] to live with her steven 3 yrs ago. She ambulates with a walker. She no longer drives, her steven takes her to app. She is otherwise independent. Retired. Nonsmoker. No experience. No animal exposures. No travel Smoking Status: Never smoker Past Alcohol Use History: None Reported Past Drug Use History: None Reported - Past Family History Father Family Medical History: Asthma, Cancer, COPD Additional Family Medical History / Comment(s): Gallbladder cancer Mother Family Medical History: Myocardial Infarction ([place]) Additional Family Medical History / Comment(s): Mother of a [place] at the age of 48 yrs. Sister(s) Additional Family Medical History / Comment(s): Sister of a blood clot at age 38 yrs-pt cannot recall specifics. Medications and Allergies Home Medications Medication Instructions Recorded Confirmed Type Carbidopa-Levodopa ER 25-100Mg 1 tab PO QID 01/11/19 04/07/19 History [Sinemet CR 25-100 mg] Omeprazole [PriLOSEC] 20 mg PO BID 01/11/19 04/07/19 History Spironolactone [Aldactone] 25 mg PO DAILY tab 01/25/19 04/07/19 Rx Mirabegron [Myrbetriq] 25 mg PO HS 02/11/19 04/07/19 History Sennosides-Docusate Sodium 1 tab PO DAILY PRN 02/11/19 04/07/19 History [Senokot-S] Acetaminophen Tab [Tylenol] 500 mg PO TID PRN 02/19/19 04/07/19 History Bisacodyl [Dulcolax] 5 mg PO BID 02/19/19 04/07/19 History Cholecalciferol [Vitamin D3 (25 2,000 unit PO DAILY 02/19/19 04/07/19 History Mcg = 1000 Iu)] Lisinopril-Hctz 10-12.5 mg 1 tab PO DAILY 03/09/19 04/07/19 History [Zestoretic 10-12.5] Warfarin Sodium [Coumadin] 1.25 mg PO MOTUWE 04/07/19 04/07/19 History Warfarin [Coumadin] 2.5 mg PO SUTHFRSA 04/07/19 04/07/19 History Allergies Allergy/AdvReac Type Severity Reaction Status Date / Time Influenza Virus Vaccines Allergy Swelling Verified 04/07/19 22:43 Iodinated Contrast- Oral and Allergy Chest Pain Verified 04/07/19 22:43 IV Dye Penicillins Allergy Anaphylaxis Verified 04/07/19 22:43 Physical Exam Vitals: Vital Signs Temp Pulse Pulse Resp BP BP Pulse Ox 04/08/19 08:41 97.3 F L 64 19 90/55 93 L 04/08/19 08:00 19 04/08/19 01:40 58 L 18 04/07/19 22:51 58 L 18 04/07/19 22:21 97.3 F L 58 L 18 157/71 95 04/07/19 20:34 98.6 F 73 17 185/75 96 04/07/19 16:23 98.5 F 68 18 145/79 99 Intake and Output 04/07/19 04/08/19 04/08/19 22:59 06:59 14:59 Other: Voiding Method Bedside Commode Bedside Commode Bedside Commode # Voids 1 1 1 Weight 85.275 kg Results CBC & Chem 7: 04/08/19 07:43 04/08/19 07:43 Labs: Abnormal Lab Results - Last 24 Hours (Table) 04/07/19 04/07/19 04/07/19 Range/Units 17:10 18:25 18:25 PT 28.7 H (9.0-12.0) sec INR 3.0 H (<1.2) APTT 34.8 H (22.0-30.0) sec BUN 28 H (7-17) mg/dL Glucose (74-99) mg/dL Ur Leukocyte Esterase Moderate H (Negative) Urine WBC 27 H (0-5) /hpf Amorphous Sediment Rare H (None) /hpf Urine Bacteria Rare H (None) /hpf 04/08/19 04/08/19 Range/Units 07:43 07:43 PT 25.0 H (9.0-12.0) sec INR 2.6 H (<1.2) APTT (22.0-30.0) sec BUN 22 H (7-17) mg/dL Glucose 120 H (74-99) mg/dL Ur Leukocyte Esterase (Negative) Urine WBC (0-5) /hpf Amorphous Sediment (None) /hpf Urine Bacteria (None) /hpf Microbiology - Last 24 Hours (Table) 04/07/19 17:10 Urine Culture - Preliminary Urine,Voided Thrombosis Risk Factor Assmnt - Choose All That Apply Any of the Below Risk Factors Present?: Yes Each Factor Represents 1 point: Acute [place], Hx of IBD, Medical pt on bed rest, Obesity (BMI >25), Swollen legs (current), Varicose veins Other Risk Factors: Yes Each Risk Factor Represents 3 Points: Age 75 years or older, Family history of DVT/PE, History of DVT/PE Other congenital or acquired thrombophilia - If yes, enter type in comment: No Thrombosis Risk Factor Assessment Total Risk Factor Score: 15 Thrombosis Risk Factor Assessment Level: High Risk
--- NOTE | 2019-04-09 00:06 | P.CON ---
Consult Note - . Consult date: 04/08/19 Assessment/Plan:: This is a 78-year-old female patient well known to ID service as she was recently seen during her hospitalization in March for ESBL E. coli. Patient was discharged on Invanz to complete 7 more days and was discharged to [facility]. Patient states that she will completed her antibiotics, midline was discontinued and about 2 weeks ago she was discharged back home with her daughter. Patient states that she was feeling much improved until she woke up a couple days ago and noticed that she had decreased urine output, burning with urination, subjective fever and chills, left-sided abdominal discomfort and flank discomfort. She has also had decreased appetite. Patient came into [facility] emergency center for evaluation found to be afebrile, white count 7.9, INR 2.6. Patient is on chronic Coumadin for DVTs. Creatinine 0.77. Urinalysis revealed 2+ trace moderate, WBCs 27, bacteria rare. A urine culture and blood culture in progress. Patient did receive 1 dose of Invanz in the emergency center. Please see the consult note is dictated by nurse practitioner Mrs. Ami Burns. This 78-year-old woman has a history of ESBL E. coli urinary tract infection that was treated in the outpatient setting with Invanz. No expiratory the completion of antibiotic therapy she can is become ill likely with similar infection. The patient is rapidly becoming ill and consequently ultrasound of the urinary system is requested to ensure that there is no obstruction or stones within need to be addressed. The final culture will help direct her course of antibiotic therapy the time of her discharge. Attempts to mitigated factors by she's having recurrent infections will be addressed as possible. I agree with evaluation, assessment and plan as dictated by nurse practitioner Mrs. Ami Burns .
[2019-04-09] MEDS: PANTOPRAZOLE 40 MG TABLET PO SCH (07:52)
[2019-04-09] MEDS: BISACODYL 5 MG TABLET.DR PO SCH ×2 (07:53→20:49)
[2019-04-09] MEDS: ERTAPENEM 1 GM in SODIUM CHLORIDE 0.9% 50 ML IVPB SCH (07:53)
[2019-04-09] MEDS: SPIRONOLACTONE 25 MG TAB PO SCH (07:53)
[2019-04-09] MEDS: CARBIDOPA-LEVODOPA ER 25-100MG 1 EACH TABLET.ER PO SCH ×4 (11:11→20:56)
[2019-04-09] MEDS: SODIUM CHLORIDE 0.9% 1,000 ML IV SCH (11:11)
[2019-04-09 12:30] LABS: Prothrombin Time 29.4 sec (9.0-12.0)
[2019-04-09] MEDS: LISINOPRIL-HCTZ 10-12.5 MG 1 EACH TAB PO SCH (16:38)
[2019-04-09] MEDS ORDERED: WARFARIN 1.25 MG TAB PO ONE (18:00)
[2019-04-09] MEDS: NON-FORMULARY DRUG (Mirabegron [Myrbetriq] 25 MG) PO SCH (20:49)
[2019-04-09] MEDS: ACETAMINOPHEN TAB 325 MG TAB PO PRN (22:11)
--- NOTE | 2019-04-09 22:41 | P.PN ---
Progress Note - Text Progress Note Date: 04/09/19 Chief Complaint: Urinary burning and frequency Interval history: This is a very pleasant 78-year-old patient of Dr. Benitez. Lives with her daughter. Chronic stable medical conditions include asthma hypertension osteoarthritis, diverticulosis, Parkinson's disease,. Patient also got chronic DVT and chronically on Coumadin. CHF with EF of 55-60% patient has chronic lower extremities swelling from venous insufficiency. Patient's had previous UTIs. Patient was here in March and urine did grow E. coli with ESBL. Was treated with Invanz. Patient was discharged to [facility]. Patient been home for about a week. For about 4 days patient started of with pelvic pain. Urinary frequency and burning. Discomfort. Low-grade fever. Decided to come in to the ER. UA came back positive. Because of repeated ESBL E. coli infection and requiring IV antibiotics. Decided to admit the patient and get an ID consultation. Patient appetite is gone down. Does feel weak and tired. Did have some chills at home Today-feels better. Less genitourinary symptoms. Eating better. No nausea. Less tired Review of systems: Was done for constitutional, cardiovascular, GI, pulmonary. relevant finding as above Active Medications Acetaminophen (Tylenol Tab) 650 mg PO Q6HR PRN PRN Reason: Mild Pain or Fever > 100.5 Last Admin: 04/09/19 22:11 Dose: 650 mg Documented by: Bisacodyl (Dulcolax) 5 mg PO BID [facility] Last Admin: 04/09/19 20:49 Dose: 5 mg Documented by: Carbidopa/Levodopa (Sinemet Er 25-100) 1 each PO QID [facility] Last Admin: 04/09/19 20:56 Dose: Not Given Documented by: Lisinopril/HCTZ (Zestoretic 10-12.5) 1 each PO DAILY [facility] Last Admin: 04/09/19 16:38 Dose: 1 each Documented by: Ertapenem 1 gm/ Sodium (Chloride) 50 mls @ 100 mls/hr IVPB DAILY [facility]; Protocol Last Admin: 04/09/19 07:53 Dose: 100 mls/hr Documented by: Miscellaneous Information (Coumadin Per Pharmacy) 0 each MISCELLANE DIRECTED PRN PRN Reason: Per protocol Naloxone HCl (Narcan) 0.2 mg IV Q2M PRN PRN Reason: Opioid Reversal Non-Formulary Medication (Mirabegron [Myrbetriq]) 25 mg PO HS [facility] Last Admin: 04/09/19 20:49 Dose: 25 mg Documented by: Pantoprazole Sodium (Protonix) 40 mg PO AC-BRKFST [facility] Last Admin: 04/09/19 07:52 Dose: 40 mg Documented by: Senna/Docusate Sodium (Senokot-S) 1 each PO DAILY PRN PRN Reason: Constipation Spironolactone (Aldactone) 25 mg PO DAILY [facility] Last Admin: 04/09/19 07:53 Dose: 25 mg Documented by: Physical examination: VITAL SIGNS: 97.3, 64, 19, 120/72, 96% room air GENERAL: Laying in bed, more comfortable today. EYES: Pupils equal. Conjunctiva normal. HEENT: External appearance of nose and ears normal, oral cavity grossly normal. NECK: JVD not raised; masses not palpable. HEART: First and second heart sounds are normal; edema present. LUNGS: Respiratory rate increased, decreased breath sounds ABDOMEN: Soft, minimal suprapubic tenderness, liver spleen not palpable, no masses palpable. PSYCH: Alert and oriented x3; mood and affect normal. Investigations reviewed in the clinical context: White count 7.9 INR 3 Urine culture growing ESBL/E. coli Previous testing White count 7.90 with 13.5 INR 2.6 potassium 4.4 bun 22 creatinine 0.84 UA positive for leukoesterase, WBC Assessment: -Acute UTI with cystitis recurrent s cultures positive for E. coli/ESBL, clinically improving -Chronic congestive heart failure from diastolic dysfunction EF 55-60% -Obesity BMI 34.5 -Chronic DVT for which patient chronically on Coumadin -GERD -Essential hypertension -Mild cognitive impairment from underlying Alzheimer's dementia -Primary osteoarthritis -Idiopathic Parkinson's disease -Chronic urinary stress incontinence -Chronic gait dysfunction uses a walker -Chronic lower extremity swelling from DVT that is from venous insufficiency Plan: Continue with IV antibiotics. Other medications to continue. Discharge planning for terms of antibiotics per Dr. Pruett. Clinically patient doing better
[2019-04-10] MEDS: ERTAPENEM 1 GM in SODIUM CHLORIDE 0.9% 50 ML IVPB SCH (07:09)
[2019-04-10] MEDS: BISACODYL 5 MG TABLET.DR PO SCH ×2 (07:10→20:17)
[2019-04-10] MEDS: SPIRONOLACTONE 25 MG TAB PO SCH (07:10)
[2019-04-10] MEDS: LISINOPRIL-HCTZ 10-12.5 MG 1 EACH TAB PO SCH (07:10)
[2019-04-10] MEDS: CARBIDOPA-LEVODOPA ER 25-100MG 1 EACH TABLET.ER PO SCH ×4 (07:10→21:09)
[2019-04-10] MEDS: PANTOPRAZOLE 40 MG TABLET PO SCH (07:10)
[2019-04-10 10:03] LABS: INR 2.6 (<1.2); Prothrombin Time 25.4 sec (9.0-12.0)
[2019-04-10] MEDS ORDERED: WARFARIN 2.5 MG TAB PO ONE (18:00)
--- NOTE | 2019-04-10 20:37 | P.PN ---
Progress Note - Text Progress Note Date: 04/10/19 Chief Complaint: Urinary burning and frequency Interval history: This is a very pleasant 78-year-old patient of Dr. Benitez. Lives with her daughter. Chronic stable medical conditions include asthma hypertension osteoarthritis, diverticulosis, Parkinson's disease,. Patient also got chronic DVT and chronically on Coumadin. CHF with EF of 55-60% patient has chronic lower extremities swelling from venous insufficiency. Patient's had previous UTIs. Patient was here in March and urine did grow E. coli with ESBL. Was treated with Invanz. Patient was discharged to [facility]. Patient been home for about a week. For about 4 days patient started of with pelvic pain. Urinary frequency and burning. Discomfort. Low-grade fever. Decided to come in to the ER. UA came back positive. Because of repeated ESBL E. coli infection and requiring IV antibiotics. Decided to admit the patient and get an ID consultation. Patient appetite is gone down. Does feel weak and tired. Did have some chills at home. Patient's urine cultures again growing ESBL/E. coli. Patient is on IV ertapenem Today-continues to feel better. Getting IV antibiotics. Appetite is improving. Genital urinary symptoms are better. Review of systems: Was done for constitutional, cardiovascular, GI, pulmonary. relevant finding as above Active Medications Acetaminophen (Tylenol Tab) 650 mg PO Q6HR PRN PRN Reason: Mild Pain or Fever > 100.5 Last Admin: 04/09/19 22:11 Dose: 650 mg Documented by: Bisacodyl (Dulcolax) 5 mg PO BID [facility] Last Admin: 04/10/19 20:17 Dose: Not Given Documented by: Carbidopa/Levodopa (Sinemet Er 25-100) 1 each PO QID [facility] Last Admin: 04/10/19 17:08 Dose: 1 each Documented by: Lisinopril/HCTZ (Zestoretic 10-12.5) 1 each PO DAILY [facility] Last Admin: 04/10/19 07:10 Dose: 1 each Documented by: Ertapenem 1 gm/ Sodium (Chloride) 50 mls @ 100 mls/hr IVPB DAILY [facility]; Protocol Last Admin: 04/10/19 07:09 Dose: 100 mls/hr Documented by: Miscellaneous Information (Coumadin Per Pharmacy) 0 each MISCELLANE DIRECTED PRN PRN Reason: Per protocol Naloxone HCl (Narcan) 0.2 mg IV Q2M PRN PRN Reason: Opioid Reversal Non-Formulary Medication (Mirabegron [Myrbetriq]) 25 mg PO HS [facility] Last Admin: 04/09/19 20:49 Dose: 25 mg Documented by: Pantoprazole Sodium (Protonix) 40 mg PO AC-BRKFST [facility] Last Admin: 04/10/19 07:10 Dose: 40 mg Documented by: Senna/Docusate Sodium (Senokot-S) 1 each PO DAILY PRN PRN Reason: Constipation Spironolactone (Aldactone) 25 mg PO DAILY [facility] Last Admin: 04/10/19 07:10 Dose: 25 mg Documented by: Physical examination: VITAL SIGNS: 97.3, 67, 16, 113/71, 94% GENERAL: Laying in bed, comfortable. EYES: Pupils equal. Conjunctiva normal. HEENT: External appearance of nose and ears normal, oral cavity grossly normal. NECK: JVD not raised; masses not palpable. HEART: First and second heart sounds are normal; edema present. LUNGS: Respiratory rate increased, decreased breath sounds ABDOMEN: Soft, minimal suprapubic tenderness, liver spleen not palpable, no masses palpable. PSYCH: Alert and oriented x3; mood and affect normal. Investigations reviewed in the clinical context: INR 2.6 Urine culture growing ESBL/E. coli Previous testing White count 7.90 with 13.5 INR 2.6 potassium 4.4 bun 22 creatinine 0.84 UA positive for leukoesterase, WBC Assessment: -Acute UTI with cystitis recurrent s cultures positive for E. coli/ESBL, clinically improving -Chronic congestive heart failure from diastolic dysfunction EF 55-60% -Obesity BMI 34.5 -Chronic DVT for which patient chronically on Coumadin -GERD -Essential hypertension -Mild cognitive impairment from underlying Alzheimer's dementia -Primary osteoarthritis -Idiopathic Parkinson's disease -Chronic urinary stress incontinence -Chronic gait dysfunction uses a walker -Chronic lower extremity swelling from DVT that is from venous insufficiency Plan: patient is on IV ertapenam. Other medications to continue. Follow daily
[2019-04-10] MEDS: NON-FORMULARY DRUG (Mirabegron [Myrbetriq] 25 MG) PO SCH (21:09)
[2019-04-10] MEDS: ACETAMINOPHEN TAB 325 MG TAB PO PRN (21:41)
[2019-04-11] MEDS: SPIRONOLACTONE 25 MG TAB PO SCH (07:38)
[2019-04-11] MEDS: ERTAPENEM 1 GM in SODIUM CHLORIDE 0.9% 50 ML IVPB SCH (07:38)
[2019-04-11] MEDS: LISINOPRIL-HCTZ 10-12.5 MG 1 EACH TAB PO SCH (07:38)
[2019-04-11] MEDS: PANTOPRAZOLE 40 MG TABLET PO SCH (07:38)
[2019-04-11] MEDS: BISACODYL 5 MG TABLET.DR PO SCH ×2 (07:38→19:52)
[2019-04-11] MEDS: CARBIDOPA-LEVODOPA ER 25-100MG 1 EACH TABLET.ER PO SCH ×4 (07:38→19:52)
[2019-04-11] MEDS: ACETAMINOPHEN TAB 325 MG TAB PO PRN (07:41)
[2019-04-11 08:53] LABS: INR 2.5 (<1.2); Prothrombin Time 24.5 sec (9.0-12.0)
[2019-04-11] MEDS ORDERED: WARFARIN 2.5 MG TAB PO SCH (18:00)
[2019-04-11] MEDS: NON-FORMULARY DRUG (Mirabegron [Myrbetriq] 25 MG) PO SCH (19:51)
--- NOTE | 2019-04-11 20:44 | P.PN ---
Progress Note - Text Progress Note Date: 04/11/19 Chief Complaint: Urinary burning and frequency Interval history: This is a very pleasant 78-year-old patient of Dr. Benitez. Lives with her daughter. Chronic stable medical conditions include asthma hypertension osteoarthritis, diverticulosis, Parkinson's disease,. Patient also got chronic DVT and chronically on Coumadin. CHF with EF of 55-60% patient has chronic lower extremities swelling from venous insufficiency. Patient's had previous UTIs. Patient was here in March and urine did grow E. coli with ESBL. Was treated with Invanz. Patient was discharged to [facility]. Patient been home for about a week. For about 4 days patient started of with pelvic pain. Urinary frequency and burning. Discomfort. Low-grade fever. Decided to come in to the ER. UA came back positive. Because of repeated ESBL E. coli infection and requiring IV antibiotics. Decided to admit the patient and get an ID consultation. Patient appetite is gone down. Does feel weak and tired. Did have some chills at home. Patient's urine cultures again growing ESBL/E. coli. Patient is on IV ertapenem Today-getting better. Symptoms much better. Getting IV antibiotics. Tolerating a diet. Up to the bathroom. Review of systems: Was done for constitutional, cardiovascular, GI, pulmonary. relevant finding as above Active Medications Acetaminophen (Tylenol Tab) 650 mg PO Q6HR PRN PRN Reason: Mild Pain or Fever > 100.5 Last Admin: 04/11/19 07:41 Dose: 650 mg Documented by: Bisacodyl (Dulcolax) 5 mg PO BID [facility] Last Admin: 04/11/19 19:52 Dose: 5 mg Documented by: Carbidopa/Levodopa (Sinemet Er 25-100) 1 each PO QID [facility] Last Admin: 04/11/19 19:52 Dose: 1 each Documented by: Lisinopril/HCTZ (Zestoretic 10-12.5) 1 each PO DAILY [facility] Last Admin: 04/11/19 07:38 Dose: 1 each Documented by: Ertapenem 1 gm/ Sodium (Chloride) 50 mls @ 100 mls/hr IVPB DAILY [facility]; Protocol Last Admin: 04/11/19 07:38 Dose: 100 mls/hr Documented by: Miscellaneous Information (Coumadin Per Pharmacy) 0 each MISCELLANE DIRECTED PRN PRN Reason: Per protocol Naloxone HCl (Narcan) 0.2 mg IV Q2M PRN PRN Reason: Opioid Reversal Non-Formulary Medication (Mirabegron [Myrbetriq]) 25 mg PO HS [facility] Last Admin: 04/11/19 19:51 Dose: 25 mg Documented by: Pantoprazole Sodium (Protonix) 40 mg PO AC-BRKFST [facility] Last Admin: 04/11/19 07:38 Dose: 40 mg Documented by: Senna/Docusate Sodium (Senokot-S) 1 each PO DAILY PRN PRN Reason: Constipation Spironolactone (Aldactone) 25 mg PO DAILY [facility] Last Admin: 04/11/19 07:38 Dose: 25 mg Documented by: Warfarin Sodium (Coumadin) 2.5 mg PO ONCE@1800 [facility] Last Admin: 04/11/19 17:03 Dose: 2.5 mg Documented by: Physical examination: VITAL SIGNS: 98, 54, 18, 114/63, 93% room air GENERAL: Sitting up, comfortable EYES: Pupils equal. Conjunctiva normal. HEENT: External appearance of nose and ears normal, oral cavity grossly normal. NECK: JVD not raised; masses not palpable. HEART: First and second heart sounds are normal; edema present. LUNGS: Respiratory rate increased, decreased breath sounds ABDOMEN: Soft, minimal suprapubic tenderness, liver spleen not palpable, no masses palpable. PSYCH: Alert and oriented x3; mood and affect normal. Investigations reviewed in the clinical context: INR 2.5 Urine culture growing ESBL/E. coli Previous testing White count 7.90 with 13.5 INR 2.6 potassium 4.4 bun 22 creatinine 0.84 UA positive for leukoesterase, WBC Assessment: -Acute UTI with cystitis recurrent s cultures positive for E. coli/ESBL, clinically improving -Chronic congestive heart failure from diastolic dysfunction EF 55-60% -Obesity BMI 34.5 -Chronic DVT for which patient chronically on Coumadin -GERD -Essential hypertension -Mild cognitive impairment from underlying Alzheimer's dementia -Primary osteoarthritis -Idiopathic Parkinson's disease -Chronic urinary stress incontinence -Chronic gait dysfunction uses a walker -Chronic lower extremity swelling from DVT that is from venous insufficiency Plan: patient is on IV ertapenam. Dr. Pruett to coordinate antibiotics for discharge. Discharge planners is to coordinate. Discussed with the patient.
[2019-04-11 23:19] VITALS: RESP 20
[2019-04-12 05:10] VITALS: BP 153/72; PULSE 60; TEMP 97.7
[2019-04-12] MEDS: ACETAMINOPHEN TAB 325 MG TAB PO PRN (06:23)
[2019-04-12] MEDS: BISACODYL 5 MG TABLET.DR PO SCH (07:37)
[2019-04-12] MEDS: CARBIDOPA-LEVODOPA ER 25-100MG 1 EACH TABLET.ER PO SCH ×2 (07:37→12:21)
[2019-04-12] MEDS: PANTOPRAZOLE 40 MG TABLET PO SCH (07:37)
[2019-04-12] MEDS: SPIRONOLACTONE 25 MG TAB PO SCH (07:37)
[2019-04-12] MEDS: LISINOPRIL-HCTZ 10-12.5 MG 1 EACH TAB PO SCH (07:37)
[2019-04-12] MEDS: ERTAPENEM 1 GM in SODIUM CHLORIDE 0.9% 50 ML IVPB SCH (07:37)
[2019-04-12 09:24] LABS: INR 2.7 (<1.2); Prothrombin Time 25.9 sec (9.0-12.0)
--- NOTE | 2019-04-12 15:28 | P.DS ---
Providers Date of admission: 04/11/19 09:24 Expected date of discharge: 04/12/19 Attending physician: Tim Levy Consults: 04/07/19 21:53 Consult Physician Urgent Consulting Provider: Faustino Pruett Consult Reason/Comments: uti, hx esbl Do you want consulting provider notified?: Yes, Notify in am Primary care physician: [facility] Hospital Course: Chief Complaint: Urinary burning and frequency Interval history: This is a very pleasant 78-year-old patient of Dr. Benitez. Lives with her daughter. Chronic stable medical conditions include asthma hypertension osteoarthritis, diverticulosis, Parkinson's disease,. Patient also got chronic DVT and chronically on Coumadin. CHF with EF of 55-60% patient has chronic lower extremities swelling from venous insufficiency. Patient's had previous UTIs. Patient was here in March and urine did grow E. coli with ESBL. Was treated with Invanz. [facility]. Patient been home for about a week. For about 4 days patient started of with pelvic pain. Urinary frequency and burning. Discomfort. Low-grade fever. Decided to come in to the ER. UA came back positive. Because of repeated ESBL E. coli infection and requiring IV antibiotics. Decided to admit the patient and get an ID consultation. Patient appetite is gone down. Does feel weak and tired. Did have some chills at home. Patient's urine cultures again growing ESBL/E. coli. Patient is on IV ertapenem Patient has done much better. He'll he back to baseline. Minimal symptoms. Tolerating a diet. Spoke to the patient and her daughter today. Also spoke to the addiction social worker. Patient will be going to the [facility]. Discussion and discharge planning more than 35 minutes Consultation: Dr. Pruett from infectious disease Physical examination: VITAL SIGNS: 97.7, 60, 20, 153% at 2, 94% room air GENERAL: Sitting up, comfortable EYES: Pupils equal. Conjunctiva normal. HEENT: External appearance of nose and ears normal, oral cavity grossly normal. NECK: JVD not raised; masses not palpable. HEART: First and second heart sounds are normal; edema present. LUNGS: Respiratory rate increased, decreased breath sounds ABDOMEN: Soft, minimal suprapubic tenderness, liver spleen not palpable, no masses palpable. PSYCH: Alert and oriented x3; mood and affect normal. Investigations reviewed in the clinical context: INR 2.5 Urine culture growing ESBL/E. coli Previous testing White count 7.90 with 13.5 INR 2.6 potassium 4.4 bun 22 creatinine 0.84 UA positive for leukoesterase, WBC Discharge diagnoses: -Acute UTI with cystitis recurrent s cultures positive for E. coli/ESBL, -Chronic congestive heart failure from diastolic dysfunction EF 55-60% -Obesity BMI 34.5 -Chronic DVT for which patient chronically on Coumadin -GERD -Essential hypertension -Mild cognitive impairment from underlying Alzheimer's dementia -Primary osteoarthritis -Idiopathic Parkinson's disease -Chronic urinary stress incontinence -Chronic gait dysfunction uses a walker -Chronic lower extremity swelling from DVT causing venous insufficiency Disposition: [facility] Patient Condition at Discharge: Stable Plan - Discharge Summary Discharge Rx Participant: Yes New Discharge Prescriptions: New Ertapenem [INVanz] 1 gm IVPB Q24H #12 bag No Action Omeprazole [PriLOSEC] 20 mg PO BID Carbidopa-Levodopa ER 25-100Mg [Sinemet CR 25-100 mg] 1 tab PO QID Spironolactone [Aldactone] 25 mg PO DAILY tab Sennosides-Docusate Sodium [Senokot-S] 1 tab PO DAILY PRN PRN Reason: Constipation Mirabegron [Myrbetriq] 25 mg PO HS Cholecalciferol [Vitamin D3 (25 Mcg = 1000 Iu)] 2,000 unit PO DAILY Bisacodyl [Dulcolax] 5 mg PO BID Acetaminophen Tab [Tylenol] 500 mg PO TID PRN PRN Reason: Pain Lisinopril-Hctz 10-12.5 mg [Zestoretic 10-12.5] 1 tab PO DAILY Warfarin [Coumadin] 2.5 mg PO SUTHFRSA Warfarin Sodium [Coumadin] 1.25 mg PO MOTUWE Discharge Medication List Carbidopa-Levodopa ER 25-100Mg [Sinemet CR 25-100 mg] 1 tab PO QID 01/11/19 [History] Omeprazole [PriLOSEC] 20 mg PO BID 01/11/19 [History] Spironolactone [Aldactone] 25 mg PO DAILY tab 01/25/19 [Rx] Mirabegron [Myrbetriq] 25 mg PO HS 02/11/19 [History] Sennosides-Docusate Sodium [Senokot-S] 1 tab PO DAILY PRN 02/11/19 [History] Acetaminophen Tab [Tylenol] 500 mg PO TID PRN 02/19/19 [History] Bisacodyl [Dulcolax] 5 mg PO BID 02/19/19 [History] Cholecalciferol [Vitamin D3 (25 Mcg = 1000 Iu)] 2,000 unit PO DAILY 02/19/19 [History] Lisinopril-Hctz 10-12.5 mg [Zestoretic 10-12.5] 1 tab PO DAILY 03/09/19 [History] Warfarin Sodium [Coumadin] 1.25 mg PO MOTUWE 04/07/19 [History] Warfarin [Coumadin] 2.5 mg PO SUTHFRSA 04/07/19 [History] Ertapenem [INVanz] 1 gm IVPB Q24H #12 bag 04/11/19 [Rx] Follow up Appointment(s)/Referral(s): Angel Benitez DO [Primary Care Provider] - 04/13/19 3:40 pm [facility], [NON-STAFF] -
[2019-04-12] MEDS ORDERED: WARFARIN 1.25 MG TAB PO ONE (18:00)
== END 2019-04-12 16:09 | DRG 690 ==
LOC: EC 16:18 → 6PED 20:38 → 4MS4W 04-08 16:07 → OBSVTOIN 04-11 09:24
PROVIDERS: ADMIT Hospitalist; ATTEND Hospitalist
PROC: 05HD33Z Insertion of Infusion Device into Right Cephalic Vein, Percutaneous Approach (ICD-10-PCS; principal; 2019-04-12 12:00)
DX: N30.90 Cystitis, unspecified without hematuria (principal); I50.32 Chronic diastolic (congestive) heart failure; I82.503 Chronic embolism and thrombosis of unspecified deep veins of lower extremity, bilateral; K51.90 Ulcerative colitis, unspecified, without complications; I11.0 Hypertensive heart disease with heart failure; Z16.12 Extended spectrum beta lactamase (ESBL) resistance; B96.20 Unspecified Escherichia coli [E. coli] as the cause of diseases classified elsewhere; G20 Parkinson's disease; G30.9 Alzheimer's disease, unspecified; N39.3 Stress incontinence (female) (male); I87.2 Venous insufficiency (chronic) (peripheral); F02.80 Dementia in other diseases classified elsewhere, unspecified severity, without behavioral disturbance, psychotic disturbance, mood disturbance, and anxiety; E66.9 Obesity, unspecified; Z68.34 Body mass index [BMI] 34.0-34.9, adult; M19.91 Primary osteoarthritis, unspecified site; K21.9 Gastro-esophageal reflux disease without esophagitis; J45.909 Unspecified asthma, uncomplicated; K57.90 Diverticulosis of intestine, part unspecified, without perforation or abscess without bleeding; R26.9 Unspecified abnormalities of gait and mobility; R79.1 Abnormal coagulation profile; T45.515A Adverse effect of anticoagulants, initial encounter; Z79.01 Long term (current) use of anticoagulants; Z79.899 Other long term (current) drug therapy; Z86.73 Personal history of transient ischemic attack (TIA), and cerebral infarction without residual deficits; Z90.710 Acquired absence of both cervix and uterus; Z90.49 Acquired absence of other specified parts of digestive tract; Z98.51 Tubal ligation status; Z86.19 Personal history of other infectious and parasitic diseases; Z87.440 Personal history of urinary (tract) infections; Z98.49 Cataract extraction status, unspecified eye; Z96.1 Presence of intraocular lens; Z88.0 Allergy status to penicillin; Z88.7 Allergy status to serum and vaccine; Z91.041 Radiographic dye allergy status; Z82.5 Family history of asthma and other chronic lower respiratory diseases; Z80.0 Family history of malignant neoplasm of digestive organs; Z82.49 Family history of ischemic heart disease and other diseases of the circulatory system; Z80.52 Family history of malignant neoplasm of bladder; Z83.2 Family history of diseases of the blood and blood-forming organs and certain disorders involving the immune mechanism; Z86.59 Personal history of other mental and behavioral disorders
CPT/HCPCS: 36410; 36415; 76770; 76937; 80048; 80053; 81001; 83605; 85025; 85610; 85730; 87040; 87077; 87086; 87186; 96365; 99284

== ENCOUNTER 2019-05-15 17:30 | Inpatient (IN) | payer MEDICARE, OTHER ==
--- NOTE | 2019-05-15 18:23 | ED ---
General Adult HPI - General Chief complaint: Urogenital Stated complaint: Poss UTI Time Seen by Provider: 05/15/19 18:07 Source: patient Mode of arrival: wheelchair Limitations: physical limitation - History of Present Illness Initial comments: 79-year-old female patient with past medical history significant for overactive bladder and frequent urinary tract infections presents to the emergency department today for evaluation of dysuria and dark urine. Patient states she's been having symptoms for the last couple of days. States she is having some l ower abdominal cramping and back pain with this. States she has been experiencing generalized weakness. States she has felt chilled but denies any known fever. Denies any nausea or vomiting. Patient has had to have PICC line with IV antibiotics for UTI in the past. Has had MDRO ESBL positive urine cultures, most recent in March. Urine culture positive proteus mirabillis in April. Patient was last treated with ertapenem via PICC line. She recently completed antiviral therapy for shingles. Patient denies any recent rash, shortness breath, chest pain, diarrhea, constipation, back pain, numbness, tingling, headache, visual changes, or any other complaints. - Related Data Home Medications Medication Instructions Recorded Confirmed Carbidopa-Levodopa ER 25-100Mg 1 tab PO QID 01/11/19 05/15/19 [Sinemet CR 25-100 mg] Omeprazole [PriLOSEC] 20 mg PO BID 01/11/19 05/15/19 Mirabegron [Myrbetriq] 25 mg PO HS 02/11/19 05/15/19 Sennosides-Docusate Sodium 1 tab PO DAILY PRN 02/11/19 05/15/19 [Senokot-S] Acetaminophen Tab [Tylenol] 500 mg PO TID PRN 02/19/19 05/15/19 Bisacodyl [Dulcolax] 5 mg PO BID 02/19/19 05/15/19 Cholecalciferol [Vitamin D3 (25 2,000 unit PO DAILY 02/19/19 05/15/19 Mcg = 1000 Iu)] Lisinopril-Hctz 10-12.5 mg 1 tab PO DAILY 03/09/19 05/15/19 [Zestoretic 10-12.5] Warfarin [Coumadin] 1.25 mg PO DAILY@1500 04/07/19 05/15/19 Previous Rx's Medication Instructions Recorded Spironolactone [Aldactone] 25 mg PO DAILY tab 01/25/19 Allergies Allergy/AdvReac Type Severity Reaction Status Date / Time Influenza Virus Vaccines Allergy Swelling Verified 05/15/19 18:13 Iodinated Contrast Media Allergy Chest Pain Verified 05/15/19 18:13 [Iodinated Contrast- Oral and IV Dye] Penicillins Allergy Anaphylaxis Verified 05/15/19 18:13 Review of Systems ROS Statement: Those systems with pertinent positive or pertinent negative responses have been documented in the HPI. ROS Other: All systems not noted in ROS Statement are negative. Past Medical History Past Medical History: Asthma, Heart Failure, CVA/TIA, Deep Vein Thrombosis (DVT), GERD/Reflux, Hypertension, Memory Impairment, Musculoskeletal Disorder, Neurologic Disorder, Osteoarthritis (OA) Additional Past Medical History / Comment(s): Ulcerative colitis, diverticulitis, parkinson's disease, CVA which pt was unaware of having-showed on cat scan, several DVTs bilateral legs and pt states since she has had intermittent bilateral ankle edema, thrombophlebitis, PE-pt cannot recall laterallity, generalized arthritis, urinary leakage, a few UTIs, shingles History of Any Multi-Drug Resistant Organisms: ESBL Date of last positivie culture/infection: 04/07/19 MDRO Source:: Urine Past Surgical History: Cholecystectomy, Hysterectomy, Orthopedic Surgery, Tubal Ligation Additional Past Surgical History / Comment(s): L shoulder injury with surgery to repair, removals of DVTs bilateral legs, cataract removal/lens implants, colonoscopies. Past Anesthesia/Blood Transfusion Reactions: Postoperative Nausea & Vomiting (PONV) Additional Past Anesthesia/Blood Transfusion Reaction / Comment(s): Pt received blood with hysterectomy without reaction. Past Psychological History: Anxiety Smoking Status: Never smoker Past Alcohol Use History: None Reported Past Drug Use History: None Reported - Past Family History Father Family Medical History: Asthma, Cancer, COPD Additional Family Medical History / Comment(s): Gallbladder cancer Mother Family Medical History: Myocardial Infarction ([place]) Additional Family Medical History / Comment(s): Mother of a DC at the age of 48 yrs. Sister(s) Additional Family Medical History / Comment(s): Sister of a blood clot at age 38 yrs-pt cannot recall specifics. General Exam Limitations: physical limitation General appearance: alert, in no apparent distress, other (Physical well-de veloped, well-nourished elderly female patient in no acute distress. Vital signs upon presentation are temperature 98.0F, pulse 77, respirations 18, blood pressure 114/49, pulse ox 97% on room air.) Eye exam: Present: normal appearance, PERRL, EOMI. Absent: scleral icterus, conjunctival injection, periorbital swelling ENT exam: Present: normal exam, normal oropharynx, mucous membranes moist Respiratory exam: Present: normal lung sounds bilaterally. Absent: respiratory distress, wheezes, rales, rhonchi, stridor Cardiovascular Exam: Present: regular rate, normal rhythm, normal heart sounds. Absent: systolic murmur, diastolic murmur, rubs, gallop, clicks GI/Abdominal exam: Present: soft, tenderness (Mild generalized), normal bowel sounds. Absent: distended, guarding, rebound, rigid Neurological exam: Present: alert, oriented X3, CN II-XII intact Psychiatric exam: Present: normal affect, normal mood Skin exam: Present: warm, dry, intact, normal color. Absent: rash Course Vital Signs 05/15/19 05/15/19 17:59 19:14 Temperature 98.0 F Pulse Rate 77 69 Respiratory 18 18 Rate Blood Pressure 114/49 147/70 O2 Sat by Pulse 97 94 L Oximetry Medical Decision Making - Medical Decision Making 79-year-old female patient presented to the emergency department today for e valuation of dysuria, dark urine, and flank pain. Patient also reports generalized weakness and chills. Physical examination did reveal mild generalized abdominal tenderness and left CVA tenderness. Labs reviewed and did reveal a normal white blood cell count. Urinalysis was positive for infection. This was sent for culture. Patient has history of ESBL urinary tract infection most recently in March. Patient has been treated with IV Invanz in the past. We will start this medication and admit for further evaluation. - Lab Data Result diagrams: 05/15/19 18:35 05/15/19 18:35 Lab Results 05/15/19 05/15/19 05/15/19 Range/Units 18:35 18:35 18:35 WBC 8.0 (3.8-10.6) k/uL RBC 3.90 (3.80-5.40) m/uL Hgb 12.3 (11.4-16.0) gm/dL Hct 35.1 (34.0-46.0) % MCV 90.0 (80.0-100.0) fL MCH 31.4 (25.0-35.0) pg MCHC 34.9 (31.0-37.0) g/dL RDW 14.3 (11.5-15.5) % Plt Count 286 (150-450) k/uL Neutrophils % 72 % Lymphocytes % 19 % Monocytes % 5 % Eosinophils % 1 % Basophils % 1 % Neutrophils # 5.8 (1.3-7.7) k/uL Lymphocytes # 1.5 (1.0-4.8) k/uL Monocytes # 0.4 (0-1.0) k/uL Eosinophils # 0.1 (0-0.7) k/uL Basophils # 0.1 (0-0.2) k/uL Sodium 139 (137-145) mmol/L Potassium 5.4 H (3.5-5.1) mmol/L Chloride 106 (98-107) mmol/L Carbon Dioxide 25 (22-30) mmol/L Anion Gap 8 mmol/L BUN 36 H (7-17) mg/dL Creatinine 0.87 (0.52-1.04) mg/dL Est GFR (CKD-EPI)AfAm 73 (>60 ml/min/1.73 sqM) Est GFR (CKD-EPI)NonAf 64 (>60 ml/min/1.73 sqM) Glucose 105 H (74-99) mg/dL Plasma Lactic Acid Abdiaziz 1.2 (0.7-2.0) mmol/L Calcium 9.5 (8.4-10.2) mg/dL Total Bilirubin 0.9 (0.2-1.3) mg/dL AST 29 (14-36) U/L ALT <6 L (9-52) U/L Alkaline Phosphatase 51 (38-126) U/L Total Protein 7.7 (6.3-8.2) g/dL Albumin 4.4 (3.5-5.0) g/dL Urine Color Urine Appearance (Clear) Urine pH (5.0-8.0) Ur Specific [place] (1.001-1.035) Urine Protein (Negative) Urine Glucose (UA) (Negative) Urine Ketones (Negative) Urine Blood (Negative) Urine Nitrite (Negative) Urine Bilirubin (Negative) Urine Urobilinogen (<2.0) mg/dL Ur Leukocyte Esterase (Negative) Urine RBC (0-5) /hpf Urine WBC (0-5) /hpf Urine WBC Clumps (None) /hpf Ur Squamous Epith Cells (0-4) /hpf Urine Bacteria (None) /hpf Hyaline Casts (0-2) /lpf Urine Mucus (None) /hpf 05/15/19 Range/Units Unknown WBC (3.8-10.6) k/uL RBC (3.80-5.40) m/uL Hgb (11.4-16.0) gm/dL Hct (34.0-46.0) % MCV (80.0-100.0) fL MCH (25.0-35.0) pg MCHC (31.0-37.0) g/dL RDW (11.5-15.5) % Plt Count (150-450) k/uL Neutrophils % % Lymphocytes % % Monocytes % % Eosinophils % % Basophils % % Neutrophils # (1.3-7.7) k/uL Lymphocytes # (1.0-4.8) k/uL Monocytes # (0-1.0) k/uL Eosinophils # (0-0.7) k/uL Basophils # (0-0.2) k/uL Sodium (137-145) mmol/L Potassium (3.5-5.1) mmol/L Chloride (98-107) mmol/L Carbon Dioxide (22-30) mmol/L Anion Gap mmol/L BUN (7-17) mg/dL Creatinine (0.52-1.04) mg/dL Est GFR (CKD-EPI)AfAm (>60 ml/min/1.73 sqM) Est GFR (CKD-EPI)NonAf (>60 ml/min/1.73 sqM) Glucose (74-99) mg/dL Plasma Lactic Acid Abdiaziz (0.7-2.0) mmol/L Calcium (8.4-10.2) mg/dL Total Bilirubin (0.2-1.3) mg/dL AST (14-36) U/L ALT (9-52) U/L Alkaline Phosphatase (38-126) U/L Total Protein (6.3-8.2) g/dL Albumin (3.5-5.0) g/dL Urine Color Yellow Urine Appearance Cloudy H (Clear) Urine pH 6.0 (5.0-8.0) Ur Specific [place] 1.020 (1.001-1.035) Urine Protein 1+ H (Negative) Urine Glucose (UA) Negative (Negative) Urine Ketones Negative (Negative) Urine Blood Small H (Negative) Urine Nitrite Negative (Negative) Urine Bilirubin Negative (Negative) Urine Urobilinogen 2.0 (<2.0) mg/dL Ur Leukocyte Esterase Large H (Negative) Urine RBC 8 H (0-5) /hpf Urine WBC >182 H (0-5) /hpf Urine WBC Clumps Rare H (None) /hpf Ur Squamous Epith Cells <1 (0-4) /hpf Urine Bacteria Rare H (None) /hpf Hyaline Casts 5 H (0-2) /lpf Urine Mucus Rare H (None) /hpf Disposition Clinical Impression: UTI (urinary tract infection), History of infection due to ESBL Escherichia coli, Flank pain Disposition: ADMITTED IP TO THIS [facility] Condition: Serious Referrals: Angel Benitez DO [Primary Care Provider] - 1-2 days Decision to Admit Reason: Admit from EC Decision Date: 05/15/19 Decision Time: 19:18
[2019-05-15 18:25] LABS: Appearance,Urine Cloudy (Clear); Bacteria,Urine Rare /hpf; Bilirubin,Urine Negative (Negative); Blood,Urine Small (Negative); Color,Urine Yellow; Glucose,Urine (UA) Negative (Negative); Hyaline Casts,Urine 5 /lpf (0-2); Ketones,Urine Negative (Negative); Leukocyte Esterase,Urine Large (Negative); Mucus,Urine Rare /hpf; Nitrite,Urine Negative (Negative); Protein,Urine 1+ (Negative); RBC,Urine 8 /hpf (0-5); Squamous Epithelial Cell,Urine <1 /hpf (0-4)
[2019-05-15 18:52] LABS: Basophils # (A) 0.1 k/uL (0-0.2); Basophils % (A) 1 %; Eosinophils # (A) 0.1 k/uL (0-0.7); Eosinophils % (A) 1 %; HCT 35.1 % (34.0-46.0); HGB 12.3 gm/dL (11.4-16.0); Lymphocytes # (A) 1.5 k/uL (1.0-4.8); Lymphocytes % (A) 19 %; MCH 31.4 pg (25.0-35.0); MCHC 34.9 g/dL (31.0-37.0); Mean Platelet Volume 5.9; Monocytes # (A) 0.4 k/uL (0-1.0); Monocytes % (A) 5 %; Neutrophils # (A) 5.8 k/uL (1.3-7.7); Neutrophils % (A) 72 %; Platelet Count 286 k/uL (150-450); RDW 14.3 % (11.5-15.5)
[2019-05-15 18:56] LABS: ALT <6 U/L (9-52); AST 29 U/L (14-36); African American GFR (CKD) 73 (>60 ml/min/1.73 sqM); Albumin 4.4 g/dL (3.5-5.0); Alkaline Phosphatase 51 U/L (38-126); Anion Gap 8 mmol/L; Blood Urea Nitrogen 36 mg/dL (7-17); Calcium 9.5 mg/dL (8.4-10.2); Carbon Dioxide 25 mmol/L (22-30); Chloride 106 mmol/L (98-107); Glucose 105 mg/dL (74-99); Sodium 139 mmol/L (137-145); Total Bilirubin 0.9 mg/dL (0.2-1.3); Total Protein 7.7 g/dL (6.3-8.2)
[2019-05-15] MEDS: SODIUM CHLORIDE 0.9% 500 ML 500 ML IV SCH ×2 (18:58→21:33)
[2019-05-15 18:59] LABS: Potassium 5.4 mmol/L (3.5-5.1)
[2019-05-15] MEDS ORDERED: NALOXONE 0.4 MG/ML 1 ML VIAL IV PRN (19:15)
[2019-05-15] MEDS ORDERED: ONDANSETRON 4 MG/2 ML VIAL IVP PRN (19:15)
[2019-05-15 19:19] LABS: INR 1.6 (<1.2); Partial Thromboplastin Time 28.3 sec (22.0-30.0); Prothrombin Time 15.7 sec (9.0-12.0)
[2019-05-15] MEDS ORDERED: ERTAPENEM 1 GM in SODIUM CHLORIDE 0.9% 50 ML IVPB STA (19:22)
[2019-05-15] MEDS: ACETAMINOPHEN TAB 325 MG TAB PO PRN (22:28)
[2019-05-16] MEDS: Mirabegron [Myrbetriq] 25 MG PO SCH ×2 (00:01→21:44)
[2019-05-16] MEDS: BISACODYL 5 MG TABLET.DR PO SCH ×3 (00:02→21:44)
[2019-05-16] MEDS: CARBIDOPA-LEVODOPA ER 25-100MG 1 EACH TABLET.ER PO SCH ×5 (00:03→21:44)
[2019-05-16] MEDS: ACETAMINOPHEN TAB 325 MG TAB PO PRN ×2 (07:44→21:44)
[2019-05-16] MEDS: PANTOPRAZOLE 40 MG TABLET PO SCH (07:45)
--- NOTE | 2019-05-16 12:13 | P.HPIM ---
History of Present Illness This is a pleasant 79 this old female with past medical history of asthma, heart failure, CVA/TIA, deep venous thrombosis, GERD, hypertension, memory impairment, osteoarthritis, ulcerative colitis, Parkinson disease, shingles and previous UTIs. Presents with signs symptoms of urinary tract infection. She has history of recurrent UTI and now she presents with similar symptoms of dysuria and suprapubic tenderness of 2 days' duration, also she was from left lower quadrant tenderness and loose stool but is improving also she complains from back pain with positive CVA tenderness on both sides. She denies nausea vomiting. No chest pain or dyspnea. No fever. Usually walks with a walker because of her Parkinson disease and other medical problems She has recent shingles and upper back which is improving On admission she was started on ertapenem Vital signs stable and patient is afebrile. Showing normal WBC count at 8.0K, INR is 1.6, potassium elevated at 5.4 creatinine normal 0.8, urine is suspicious for infection. Urine culture is spent and the result is pending. Patient she takes 1.25 mg of Coumadin daily we don't increase it to 20 mg daily Review of Systems CONSTITUTIONAL: No fever, no malaise, no fatigue. HEENT: No recent visual problems or hearing problems. Denied any sore throat. CARDIOVASCULAR: No orthopnea, PND, no palpitations, no syncope. PULMONARY: No shortness of breath, no cough, no hemoptysis. GASTROINTESTINAL: No diarrhea, no nausea, no vomiting, no abdominal pain. Normoactive bowel sounds. NEUROLOGICAL: No headaches, no weakness, no numbness. HEMATOLOGICAL: Denies any bleeding or petechiae. GENITOURINARY: Denies any burning micturition, frequency, or urgency. MUSCULOSKELETAL/RHEUMATOLOGICAL: Denies any joint pain, swelling, or any muscle pain. ENDOCRINE: Denies any polyuria or polydipsia. Past Medical History Past Medical History: Asthma, Heart Failure, CVA/TIA, Deep Vein Thrombosis (DVT), GERD/Reflux, Hypertension, Memory Impairment, Musculoskeletal Disorder, Neurologic Disorder, Osteoarthritis (OA) Additional Past Medical History / Comment(s): Ulcerative colitis, diver ticulitis, parkinson's disease, CVA which pt was unaware of having-showed on cat scan, several DVTs bilateral legs and pt states since she has had intermittent bilateral ankle edema, thrombophlebitis, PE-pt cannot recall laterallity, generalized arthritis, urinary leakage, a few UTIs, shingles History of Any Multi-Drug Resistant Organisms: ESBL Date of last positivie culture/infection: 04/07/19 MDRO Source:: Urine Past Surgical History: Cholecystectomy, Hysterectomy, Orthopedic Surgery, Tubal Ligation Additional Past Surgical History / Comment(s): L shoulder injury with surgery to repair, removals of DVTs bilateral legs, cataract removal/lens implants, colonoscopies. Past Anesthesia/Blood Transfusion Reactions: Postoperative Nausea & Vomiting (PONV) Additional Past Anesthesia/Blood Transfusion Reaction / Comment(s): Pt received blood with hysterectomy without reaction. Past Psychological History: Anxiety Additional Psychological History / Comment(s): Pt resides with her daughter. She moved here from [place] to live with her steven 3 yrs ago. She ambulates with a walker. She no longer drives, her steven takes her to [employer]. She is otherwise independent. Retired. Nonsmoker. No experience. No animal exposures. No travel Smoking Status: Never smoker Past Alcohol Use History: None Reported Past Drug Use History: None Reported - Past Family History Father Family Medical History: Asthma, Cancer, COPD Additional Family Medical History / Comment(s): Gallbladder cancer Mother Family Medical History: Myocardial Infarction ([place]) Additional Family Medical History / Comment(s): Mother of a [place] at the age of 48 yrs. Sister(s) Additional Family Medical History / Comment(s): Sister of a blood clot at age 38 yrs-pt cannot recall specifics. Medications and Allergies Home Medications Medication Instructions Recorded Confirmed Type Carbidopa-Levodopa ER 25-100Mg 1 tab PO QID 01/11/19 05/15/19 History [Sinemet CR 25-100 mg] Omeprazole [PriLOSEC] 20 mg PO BID 01/11/19 05/15/19 History Spironolactone [Aldactone] 25 mg PO DAILY tab 01/25/19 05/15/19 Rx Mirabegron [Myrbetriq] 25 mg PO HS 02/11/19 05/15/19 History Sennosides-Docusate Sodium 1 tab PO DAILY PRN 02/11/19 05/15/19 History [Senokot-S] Acetaminophen Tab [Tylenol] 500 mg PO TID PRN 02/19/19 05/15/19 History Bisacodyl [Dulcolax] 5 mg PO BID 02/19/19 05/15/19 History Cholecalciferol [Vitamin D3 (25 2,000 unit PO DAILY 02/19/19 05/15/19 History Mcg = 1000 Iu)] Lisinopril-Hctz 10-12.5 mg 1 tab PO DAILY 03/09/19 05/15/19 History [Zestoretic 10-12.5] Warfarin [Coumadin] 1.25 mg PO DAILY@1500 04/07/19 05/15/19 History Allergies Allergy/AdvReac Type Severity Reaction Status Date / Time Influenza Virus Vaccines Allergy Swelling Verified 05/15/19 18:13 Iodinated Contrast Media Allergy Chest Pain Verified 05/15/19 18:13 [Iodinated Contrast- Oral and IV Dye] Penicillins Allergy Anaphylaxis Verified 05/15/19 18:13 Physical Exam Vitals: Vital Signs Temp Pulse Pulse Resp BP BP Pulse Ox 05/16/19 07:57 61 18 05/16/19 07:00 97.9 F 61 16 102/64 92 L 05/16/19 01:30 97.8 F 61 18 102/60 96 05/15/19 22:10 97.7 F 71 14 146/79 92 L 05/15/19 19:14 69 18 147/70 94 L 05/15/19 17:59 98.0 F 77 18 114/49 97 Intake and Output 05/15/19 05/16/19 05/16/19 22:59 06:59 14:59 Intake Total 296 Balance 296 Intake: Oral 296 Other: Voiding Method Toilet Bedside Commode Bedside Commode Diaper # Voids 1 2 2 Weight 86.183 kg GENERAL: The patient is alert and oriented x3, not in any acute distress. Well developed, well nourished. HEENT: Pupils are round and equally reacting to light. EOMI. No scleral icterus. No conjunctival pallor. Normocephalic, atraumatic. No pharyngeal erythema. No thyromegaly. CARDIOVASCULAR: S1 and S2 present. No murmurs, rubs, or gallops. PULMONARY: Chest is clear to auscultation, no wheezing or crackles. -ABDOMEN: Soft, suprapubic tenderness, LLQ tenderness with no rebound tenderness or guarding, nondistended, normoactive bowel sounds. No palpable organomegaly. Bilateral costovertebral angle tenderness, mild MUSCULOSKELETAL: No joint swelling or deformity. -EXTREMITIES: No cyanosis, clubbing, mild bilateral leg edema NEUROLOGICAL: Gross neurological examination did not reveal any focal deficits. SKIN: No rashes. No petechiae Results CBC & Chem 7: 05/15/19 18:35 05/15/19 18:35 Labs: Abnormal Lab Results - Last 24 Hours (Table) 05/15/19 05/15/19 05/15/19 Range/Units 18:35 18:35 Unknown PT 15.7 H (9.0-12.0) sec INR 1.6 H (<1.2) Potassium 5.4 H (3.5-5.1) mmol/L BUN 36 H (7-17) mg/dL Glucose 105 H (74-99) mg/dL ALT <6 L (9-52) U/L Urine Appearance Cloudy H (Clear) Urine Protein 1+ H (Negative) Urine Blood Small H (Negative) Ur Leukocyte Esterase Large H (Negative) Urine RBC 8 H (0-5) /hpf Urine WBC >182 H (0-5) /hpf Urine WBC Clumps Rare H (None) /hpf Urine Bacteria Rare H (None) /hpf Hyaline Casts 5 H (0-2) /lpf Urine Mucus Rare H (None) /hpf Microbiology - Last 24 Hours (Table) 05/15/19 Unknown Urine Culture - Preliminary Urine,Voided Thrombosis Risk Factor Assmnt - Choose All That Apply Any of the Below Risk Factors Present?: Yes Each Factor Represents 1 point: Obesity (BMI >25), Swollen legs (current) Each Risk Factor Represents 3 Points: Age 75 years or older Thrombosis Risk Factor Assessment Total Risk Factor Score: 5 Thrombosis Risk Factor Assessment Level: High Risk Assessment and Plan Assessment: Acute urinary tract infection, concerned for ESBL. With back pain History of recurrent DVTs Chronic congestive heart failure Hypertension GERD Memory impairment Primary assessment this History of ulcerative colitis Parkinson disease History of shingles History of recurrent UTI Plan: This is a pleasant 79 years old female who presents with acute UTI, continue with antibiotics. Call infectious disease consult. We'll check renal ultrasound Labs and medication were reviewed.. Continue same treatment. Continue with symptomatic treatment. Resume home medication. Monitor lytes and vitals. DVT and GI prophylaxis. Further recommendations of the clinical course of the patient DVT prophylaxis on Coumadin GI Prophylaxis: Protonix PT/OT: Pending Prognosis is guarded
[2019-05-16 13:06] LABS: INR 1.6 (<1.2)
--- NOTE | 2019-05-16 13:45 | US ---
EXAMINATION TYPE: US renals and bladder DATE OF EXAM: 05/16/2019 COMPARISON: NONE CLINICAL HISTORY: recurrent uti. multiple UTI's EXAM MEASUREMENTS: Right Kidney: 8.1 x 3.6 x 3.8 cm Left Kidney: 9.5 x 4.5 x 6.4 cm suboptimal imaging from previous exam in Apr 22, morbidly obese, very limited mobility and bowel g as obscure imaging today Right Kidney: small cyst seen mid pole = 1.4cm Left Kidney: very limited imaging, appears wnl Bladder: not distended IMPRESSION: 1. VERY LIMITED EXAMINATION. 2. POOR VISUALIZATION OF THE LEFT KIDNEY. 3. SMALL CYST WITHIN THE MID POLAR REGION OF THE RIGHT KIDNEY MEASURING 1.4 CM.
--- NOTE | 2019-05-16 15:46 | P.CONS ---
History of Present Illness - Reason for Consult Consult date: 05/16/19 Urinary tract infection with history of ESBL Requesting physician: Elroy E Sheet - Chief Complaint Dysuria and dark urine 2 days - History of Present Illness Patient is 79 year old female with a past medical history significant for overactive bladder and frequent urinary tract infection, and this patient is a previous history of ESBL E. coli UTI on urine culture that was obtained on 04/07/2019 apparently has been treated with the IV Invanz subsequent the patient did have another admission to this facility on 04/29/2019 and urine culture that admission did shows Proteus mirabilis which was not ESBL patient not very clear what antibiotic she went home on her last admission, however she did mention she went to a rehab and has been recently discharged from the rehabilitation facility, patient had been complaining of diarrhea a few days ago that has subse quently subsided however on the last day or 2 she started having more urinary burning suprapubic discomfort more of a dull aching pain 4-5 out of 10 and no radiation with associated dark foul-smelling urine did have some chills but denies high-grade fever, on presentation hospital the patient was afebrile and white count was normal the patient did have a positive UA, with large leukocyte esterase and more than 182 WBC, she also have ultrasound of the kidneys done this morning with limited examination for visualization of the left kidney small cysts within the mid pole region of the right kidney, patient has been started on IV Invanz 1 g daily in view of previous history of ESBL E. coli infectious disease was consulted for further recommendation regarding antibiotic therapy , Review of Systems CONSTITUTIONAL: Positive for weakness. She is denies high-grade Fever EYES: No complaint. ENT:No complaint. RESPIRATORY: No complaint. CARDIOVASCULAR: No complaint. GENITOURINARY: As per history of present illness GASTROINTESTINAL: As per history of present illness. MUSCULOSKELETAL: No complaint. INTEGUMENTARY: No complaint. PSYCHOLOGICAL: No complaint. ENDOCRINE: No complaint. NEUROLOGIC: No complaint. Past Medical History Past Medical History: Asthma, Heart Failure, CVA/TIA, Deep Vein Thrombosis (DV T), GERD/Reflux, Hypertension, Memory Impairment, Musculoskeletal Disorder, Neurologic Disorder, Osteoarthritis (OA) Additional Past Medical History / Comment(s): Ulcerative colitis, diverticulitis, parkinson's disease, CVA which pt was unaware of having-showed on cat scan, several DVTs bilateral legs and pt states since she has had intermittent bilateral ankle edema, thrombophlebitis, PE-pt cannot recall laterallity, generalized arthritis, urinary leakage, a few UTIs, shingles History of Any Multi-Drug Resistant Organisms: ESBL Year Discovered:: 04/07/19 MDRO Source:: Urine Past Surgical History: Cholecystectomy, Hysterectomy, Orthopedic Surgery, Tubal Ligation Additional Past Surgical History / Comment(s): L shoulder injury with surgery to repair, removals of DVTs bilateral legs, cataract removal/lens implants, colonoscopies. Past Anesthesia/Blood Transfusion Reactions: Postoperative Nausea & Vomiting (PONV) Additional Past Anesthesia/Blood Transfusion Reaction / Comm: Pt received blood with hysterectomy without reaction. Past Psychological History: Anxiety Additional Psychological History / Comment(s): Pt resides with her daughter. She moved here from [place] to live with her steven 3 yrs ago. She ambulates with a walker. She no longer drives, her steven takes her to app. She is otherwise independent. Retired. Nonsmoker. No experience. No animal exposures. No travel Smoking Status: Never smoker Past Alcohol Use History: None Reported Past Drug Use History: None Reported - Past Family History Father Family Medical History: Asthma, Cancer, COPD Additional Family Medical History / Comment(s): Gallbladder cancer Mother Family Medical History: Myocardial Infarction (AR) Additional Family Medical History / Comment(s): Mother of a AR at the age of 48 yrs. Sister(s) Additional Family Medical History / Comment(s): Sister of a blood clot at age 38 yrs-pt cannot recall specifics. Medications and Allergies Home Medications Medication Instructions Recorded Confirmed Type Carbidopa-Levodopa ER 25-100Mg 1 tab PO QID 01/11/19 05/15/19 History [Sinemet CR 25-100 mg] Omeprazole [PriLOSEC] 20 mg PO BID 01/11/19 05/15/19 History Spironolactone [Aldactone] 25 mg PO DAILY tab 01/25/19 05/15/19 Rx Mirabegron [Myrbetriq] 25 mg PO HS 02/11/19 05/15/19 History Sennosides-Docusate Sodium 1 tab PO DAILY PRN 02/11/19 05/15/19 History [Senokot-S] Acetaminophen Tab [Tylenol] 500 mg PO TID PRN 02/19/19 05/15/19 History Bisacodyl [Dulcolax] 5 mg PO BID 02/19/19 05/15/19 History Cholecalciferol [Vitamin D3 (25 2,000 unit PO DAILY 02/19/19 05/15/19 History Mcg = 1000 Iu)] Lisinopril-Hctz 10-12.5 mg 1 tab PO DAILY 03/09/19 05/15/19 History [Zestoretic 10-12.5] Warfarin [Coumadin] 1.25 mg PO DAILY@1500 04/07/19 05/15/19 History Allergies Allergy/AdvReac Type Severity Reaction Status Date / Time Influenza Virus Vaccines Allergy Swelling Verified 05/15/19 18:13 Iodinated Contrast Media Allergy Chest Pain Verified 05/15/19 18:13 [Iodinated Contrast- Oral and IV Dye] Penicillins Allergy Anaphylaxis Verified 05/15/19 18:13 Physical Exam Vitals: Vital Signs Temp Pulse Pulse Resp BP BP Pulse Ox 05/16/19 07:57 61 18 05/16/19 07:00 97.9 F 61 16 102/64 92 L 05/16/19 01:30 97.8 F 61 18 102/60 96 05/15/19 22:10 97.7 F 71 14 146/79 92 L 05/15/19 19:14 69 18 147/70 94 L 05/15/19 17:59 98.0 F 77 18 114/49 97 Intake and Output 05/15/19 05/16/19 05/16/19 22:59 06:59 14:59 Intake Total 296 Balance 296 Intake: Oral 296 Other: Voiding Method Toilet Bedside Commode Bedside Commode Diaper # Voids 1 2 2 Weight 86.183 kg GENERAL DESCRIPTION: Elderly female lying in bed, no distress. No tachypnea or accessory muscle of respiration use. HEENT: Shows Pallor , no scleral icterus. Oral mucous membrane is dry. No pharyngeal erythema or thrush NECK: Trachea central, no thyromegaly. LUNGS: Unlabored breathing. Clear to auscultation anteriorly. No wheeze or crackle. HEART: S1, S2, regular rate and rhythm. No loud murmur ABDOMEN: Soft, no tenderness , guarding or rigidity, no organomegaly EXTREMITIES: No edema of feet. SKIN: No rash, no masses palpable. NEUROLOGICAL: The patient is awake, alert, oriented x3, mood and affect normal. Results CBC & Chem 7: 05/15/19 18:35 05/15/19 18:35 Labs: Abnormal Lab Results - Last 24 Hours (Table) 05/15/19 05/15/19 05/15/19 Range/Units 18:35 18:35 Unknown PT 15.7 H (9.0-12.0) sec INR 1.6 H (<1.2) Potassium 5.4 H (3.5-5.1) mmol/L BUN 36 H (7-17) mg/dL Glucose 105 H (74-99) mg/dL ALT <6 L (9-52) U/L Urine Appearance Cloudy H (Clear) Urine Protein 1+ H (Negative) Urine Blood Small H (Negative) Ur Leukocyte Esterase Large H (Negative) Urine RBC 8 H (0-5) /hpf Urine WBC >182 H (0-5) /hpf Urine WBC Clumps Rare H (None) /hpf Urine Bacteria Rare H (None) /hpf Hyaline Casts 5 H (0-2) /lpf Urine Mucus Rare H (None) /hpf 05/16/19 Range/Units 12:27 PT 16.0 H (9.0-12.0) sec INR 1.6 H (<1.2) Potassium (3.5-5.1) mmol/L BUN (7-17) mg/dL Glucose (74-99) mg/dL ALT (9-52) U/L Urine Appearance (Clear) Urine Protein (Negative) Urine Blood (Negative) Ur Leukocyte Esterase (Negative) Urine RBC (0-5) /hpf Urine WBC (0-5) /hpf Urine WBC Clumps (None) /hpf Urine Bacteria (None) /hpf Hyaline Casts (0-2) /lpf Urine Mucus (None) /hpf Microbiology - Last 24 Hours (Table) 05/15/19 Unknown Urine Culture - Preliminary Urine,Voided Assessment and Plan Assessment: 1-patient presenting to the hospital with urinary frequency burning suprapubic discomfort along with approximately urine and positive UA likely symptomatic urinary tract infection, with a previous history positive for ESBL E. coli beginning of April 2019, her postmenopausal status is putting her at risk of these recurrent UTIs 2-penicillin ALLERGY--that will limit the number of antibiotic safe to use (1) History of infection due to ESBL Escherichia coli Current Visit: Yes Status: Acute Code(s): Z86.19 - PERSONAL HISTORY OF OTHER INFECTIOUS AND PARASITIC DISEASES SNOMED Code(s): 291378573 (2) Urinary tract infection Current Visit: Yes Status: Acute Code(s): N39.0 - URINARY TRACT INFECTION, SITE NOT SPECIFIED SNOMED Code(s): 09699861 Plan: 1-Invanz 1 g IV piggyback daily 2-we will wait for the current urine culture finalized to determine her discharge antibiotics 3-patient will benefit from intra-vaginal estrogen cream to prevent recurrent UTIs, and she has been advised increasing her fluid intake and cranberry juice We will follow on clinical condition and cultures to further adjust medication if needed Thank you for this consultation will follow this patient with you Time with Patient: Greater than 30
[2019-05-16] MEDS ORDERED: WARFARIN 0.5 MG TAB PO ONE (18:00)
[2019-05-16] MEDS ORDERED: WARFARIN 2 MG TAB PO ONE (18:00)
[2019-05-16] MEDS ORDERED: SODIUM CHLORIDE 0.9% 500 ML 500 ML IV ONE (19:16)
[2019-05-16] MEDS: SODIUM CHLORIDE 0.9% 1,000 ML IV SCH (20:15)
[2019-05-16] MEDS: ERTAPENEM 1 GM in SODIUM CHLORIDE 0.9% 50 ML IVPB SCH (20:15)
[2019-05-17 07:16] LABS: Basophils # (A) 0.1 k/uL (0-0.2); Basophils % (A) 1 %; Eosinophils # (A) 0.2 k/uL (0-0.7); Eosinophils % (A) 4 %; HCT 31.6 % (34.0-46.0); Lymphocytes # (A) 1.3 k/uL (1.0-4.8); Lymphocytes % (A) 25 %; MCH 31.7 pg (25.0-35.0); MCHC 34.7 g/dL (31.0-37.0); MCV 91.5 fL (80.0-100.0); Mean Platelet Volume 6.4; Monocytes # (A) 0.3 k/uL (0-1.0); Monocytes % (A) 6 %; Neutrophils # (A) 3.3 k/uL (1.3-7.7); Neutrophils % (A) 62 %; Platelet Count 243 k/uL (150-450); RBC 3.45 m/uL (3.80-5.40); RDW 14.3 % (11.5-15.5); WBC 5.3 k/uL (3.8-10.6)
[2019-05-17 07:20] LABS: INR 1.7 (<1.2); Prothrombin Time 16.7 sec (9.0-12.0)
[2019-05-17 07:27] LABS: Calcium 8.7 mg/dL (8.4-10.2); Potassium 4.1 mmol/L (3.5-5.1)
[2019-05-17] MEDS: CHOLECALCIFEROL 1,000 UNIT TAB PO SCH (09:38)
[2019-05-17] MEDS: LISINOPRIL-HCTZ 10-12.5 MG 1 EACH TAB PO SCH (09:38)
[2019-05-17] MEDS: CARBIDOPA-LEVODOPA ER 25-100MG 1 EACH TABLET.ER PO SCH ×4 (09:39→21:38)
[2019-05-17] MEDS: PANTOPRAZOLE 40 MG TABLET PO SCH (09:39)
[2019-05-17] MEDS: SPIRONOLACTONE 25 MG TAB PO SCH (09:39)
[2019-05-17] MEDS: BISACODYL 5 MG TABLET.DR PO SCH ×2 (09:39→20:15)
--- NOTE | 2019-05-17 16:51 | P.PN ---
Subjective This is a pleasant 79 this old female with past medical history of asthma, heart failure, CVA/TIA, deep venous thrombosis, GERD, hypertension, memory impairment, osteoarthritis, ulcerative colitis, Parkinson disease, shingles and previous UTIs. Presents with signs symptoms of urinary tract infection. She has history of recurrent UTI and now she presents with similar symptoms of dysuria and suprapubic tenderness of 2 days' duration, also she was from left lower quadrant tenderness and loose stool but is improving also she complains from back pain with positive CVA tenderness on both sides. She denies nausea vomiting. No chest pain or dyspnea. No fever. Usually walks with a walker because of her Parkinson disease and other medical problems She has recent shingles and upper back which is improving On admission she was started on ertapenem Vital signs stable and patient is afebrile. Showing normal WBC count at 8.0K, INR is 1.6, potassium elevated at 5.4 creatinine normal 0.8, urine is suspicious for infection. Urine culture is spent and the result is pending. Patient she takes 1.25 mg of Coumadin daily we don't increase it to 20 mg daily 05/17/2019 Patient admitted with suprapubic and left lower quadrant abdominal pain. Found to have UTI with gram-negative bacteria and final results of the culture is still pending. Patient remains on ertapenem for history of ESBL infection before Renal ultrasound was showing no hydronephrosis. Vitas looks stable and patient is afebrile, blood pressure is improved. Leukocyte trending down which is within normal limits. Lower urinary tract of normal saline down to 40 mm/h. Infectious disease R following the case Review of systems CONSTITUTIONAL: No fever, no malaise, no fatigue. HEENT: No recent visual problems or hearing problems. Denied any sore throat. CARDIOVASCULAR: No orthopnea, PND, no palpitations, no syncope. PULMONARY: No shortness of breath, no cough, no hemoptysis. GASTROINTESTINAL: No diarrhea, no nausea, no vomiting, no abdominal pain. Normoactive bowel sounds. NEUROLOGICAL: No headaches, no weakness, no numbness. HEMATOLOGICAL: Denies any bleeding or petechiae. GENITOURINARY: Denies any burning micturition, frequency, or urgency. MUSCULOSKELETAL/RHEUMATOLOGICAL: Denies any joint pain, swelling, or any muscle pain. ENDOCRINE: Denies any polyuria or polydipsia. Active Medications Generic Name Dose Route Start Last Admin Trade Name Jaq PRN Reason Stop Dose Admin Acetaminophen 650 mg 05/15/19 19:15 05/16/19 21:44 Tylenol Tab PO 650 mg Q6HR PRN Administration Mild Pain or Fever > 100.5 Bisacodyl 5 mg 05/15/19 23:30 05/17/19 09:39 Dulcolax PO 5 mg BID JOSETTE Administration Carbidopa/Levodopa 1 each 05/15/19 23:30 05/17/19 12:45 Sinemet Er 25-100 PO 1 each QID JOSETTE Administration Cholecalciferol 2,000 unit 05/17/19 09:00 05/17/19 09:38 Vitamin D3 (25 Mcg = 1000 Iu) PO 2,000 unit DAILY JOSETTE Administration Lisinopril/HCTZ 1 each 05/17/19 09:00 05/17/19 09:38 Zestoretic 10-12.5 PO 1 each DAILY JOSETTE Administration Ertapenem 1 gm/ Sodium 50 mls @ 100 mls/hr 05/16/19 20:00 05/16/19 20:15 Chloride IVPB 100 mls/hr DAILY@2000 JOSETTE Administration Protocol Sodium Chloride 1,000 mls @ 40 mls/hr 05/16/19 19:30 05/16/19 20:15 Saline 0.9% IV 75 mls/hr .Q24H JOSETTE Administration Miscellaneous Information 0 each 05/16/19 14:07 Coumadin Per Pharmacy MISCELLANE DIRECTED PRN PHARMACY PROTOCOL Naloxone HCl 0.2 mg 05/15/19 19:15 Narcan IV Q2M PRN Opioid Reversal Mirabegron [ 25 mg 05/15/19 23:30 05/16/19 21:44 Myrbetriq] 25 Mg PO Not Given HS JOSETTE Ondansetron HCl 4 mg 05/15/19 19:15 Zofran IVP Q8HR PRN Nausea And Vomiting Pantoprazole Sodium 40 mg 05/16/19 07:30 05/17/19 09:39 Protonix PO 40 mg DAILY@0730 JOSETTE Administration Spironolactone 25 mg 05/17/19 09:00 05/17/19 09:39 Aldactone PO 25 mg DAILY JOSETTE Administration Warfarin Sodium 2.5 mg 05/17/19 18:00 Coumadin PO 05/17/19 18:01 DAILY@1800 ONE Objective - Vital Signs Vital signs: Vital Signs Temp 98.6 F 05/17/19 14:13 Pulse 64 05/17/19 14:13 Resp 15 05/17/19 14:13 BP 109/58 05/17/19 14:13 Pulse Ox 95 05/17/19 14:13 Intake & Output 05/16/19 05/17/19 05/17/19 18:59 06:59 18:59 Intake Total 592 360 Balance 592 360 Intake: Oral 592 360 Other: Voiding Method Bedside Commode Bedside Commode # Voids 1 5 5 - Exam GENERAL: The patient is alert and oriented x3, not in any acute distress. Well developed, well nourished. HEENT: Pupils are round and equally reacting to light. EOMI. No scleral icterus. No conjunctival pallor. Normocephalic, atraumatic. No pharyngeal erythema. No thyromegaly. CARDIOVASCULAR: S1 and S2 present. No murmurs, rubs, or gallops. PULMONARY: Chest is clear to auscultation, no wheezing or crackles. -ABDOMEN: Soft, suprapubic tenderness, LLQ tenderness with no rebound tenderness or guarding, nondistended, normoactive bowel sounds. No palpable organomegaly. Bilateral costovertebral angle tenderness, mild MUSCULOSKELETAL: No joint swelling or deformity. -EXTREMITIES: No cyanosis, clubbing, mild bilateral leg edema NEUROLOGICAL: Gross neurological examination did not reveal any focal deficits. SKIN: No rashes. No petechiae - Labs CBC & Chem 7: 05/17/19 06:33 05/17/19 06:33 Labs: Abnormal Lab Results - Last 24 Hours (Table) 05/17/19 05/17/19 05/17/19 Range/Units 06:33 06:33 06:33 RBC 3.45 L (3.80-5.40) m/uL Hgb 11.0 L (11.4-16.0) gm/dL Hct 31.6 L (34.0-46.0) % PT 16.7 H (9.0-12.0) sec INR 1.7 H (<1.2) BUN 23 H (7-17) mg/dL Microbiology - Last 24 Hours (Table) 05/15/19 18:50 Blood Culture - Preliminary Blood No Growth after 24 hours 05/15/19 Unknown Urine Culture - Preliminary Urine,Voided Gram Neg Bacilli Assessment and Plan Assessment: Acute urinary tract infection, concerned for ESBL. With back pain History of recurrent DVTs Chronic congestive heart failure Hypertension GERD Memory impairment Primary assessment this History of ulcerative colitis Parkinson disease History of shingles History of recurrent UTI Plan: This is a pleasant 79 years old female who presents with acute UTI, continue with antibiotics. Call infectious disease consult. We'll check renal u ltrasound Labs and medication were reviewed.. Continue same treatment. Continue with symptomatic treatment. Resume home medication. Monitor lytes and vitals. DVT and GI prophylaxis. Further recommendations of the clinical course of the patient DVT prophylaxis on Coumadin GI Prophylaxis: Protonix PT/OT: Pending Prognosis is guarded
[2019-05-17] MEDS ORDERED: WARFARIN 2.5 MG TAB PO ONE (18:00)
[2019-05-17] MEDS: ERTAPENEM 1 GM in SODIUM CHLORIDE 0.9% 50 ML IVPB SCH (20:14)
[2019-05-17] MEDS: Mirabegron [Myrbetriq] 25 MG PO SCH (20:15)
[2019-05-17] MEDS: ACETAMINOPHEN TAB 325 MG TAB PO PRN (20:20)
[2019-05-17] MEDS: SODIUM CHLORIDE 0.9% 1,000 ML IV SCH ×2 (21:00→21:38)
--- NOTE | 2019-05-17 22:56 | P.PN ---
Subjective Progress Note Date: 05/17/19 79-year-old female with history of her family in the outpatient setting relates that she was not feeling well she developed fever dysuria and increasing weakness and presented to the emergency center a few days prior. She had workup and was placed on levofloxacin for a urinary tract infection. She has known difficulties with prior urinary infections and urinary incontinence. Has continued to have ongoing bouts of urinary tract infections that are symptomatic. Again presents to the emergency room with dysuria, urinary frequency malaise and weakness and consequently urinalysis was performed which was markedly abnormal and she was admitted to hospital. She was seen by ID coverage, no caries been resumed. Ertapenem was utilized because of her history of ESBL infection. Feeling better today. Objective - Vital Signs Vital signs: Vital Signs Temp 96.4 F L 05/17/19 21:12 Pulse 62 05/17/19 21:12 Resp 18 05/17/19 21:12 BP 135/63 05/17/19 21:12 Pulse Ox 95 05/17/19 21:12 Intake & Output 05/17/19 05/17/19 05/18/19 06:59 18:59 06:59 Intake Total 360 650 Balance 360 650 Intake: Intake, IV Titration 170 Amount Ertapenem 1 gm In Sodium 50 Chloride 0.9% 50 ml @ 100 mls/hr IVPB DAILY@2000 JOSETTE Rx#:[id number] Sodium Chloride 0.9% 1, 120 000 ml @ 40 mls/hr IV . Q24H JOSETTE Rx#:[id number] Oral 360 480 Other: Voiding Method Bedside Commode # Voids 5 5 4 # Bowel Movements 1 - Exam Elderly woman appears improved from admission HEENT: Anicteric conjunctiva are pink and moist nasal mucosa grossly intact without significant lesions, there is no thrush. Neck: The neck is supple without significant lymphadenopathy or thyromegaly. Lungs: Good bilateral air entry without significant crackles or wheezing. There is no significant bronchial sounds. There is no egophony or dullness. Heart: Regular rate and rhythm with an audible S1-S2, no S3 no S4. There is no significant murmur click or rub, PMI was nondisplaced. Abdomen: Positive bowel sounds, abdomen is soft she has some mild left flank tenderness and suprapubic tenderness but there is no guarding or rigidity or rebound Extremities: The upper extremities have excellent pulses they are symmetric, no significant petechiae or telangiectasia. No splinter hemorrhages were noted. The lower extremities are free from significant edema. The peripheral pulses were 2+ and symmetric. Neuro: Awake alert oriented to person place and time. There are no acute new gross focal sensory motor deficits. - Labs CBC & Chem 7: 05/17/19 06:33 05/17/19 06:33 Labs: Abnormal Lab Results - Last 24 Hours (Table) 05/17/19 05/17/19 05/17/19 Range/Units 06:33 06:33 06:33 RBC 3.45 L (3.80-5.40) m/uL Hgb 11.0 L (11.4-16.0) gm/dL Hct 31.6 L (34.0-46.0) % PT 16.7 H (9.0-12.0) sec INR 1.7 H (<1.2) BUN 23 H (7-17) mg/dL Microbiology - Last 24 Hours (Table) 05/15/19 Unknown Urine Culture - Final Urine,Voided Escherichia coli 05/15/19 18:50 Blood Culture - Preliminary Blood No Growth after 48 hours Laboratory Results WBC 5.3 k/uL (3.8-10.6) 05/17/19 06:33 RBC 3.45 m/uL (3.80-5.40) L 05/17/19 06:33 Hgb 11.0 gm/dL (11.4-16.0) L 05/17/19 06:33 Hct 31.6 % (34.0-46.0) L 05/17/19 06:33 MCV 91.5 fL (80.0-100.0) 05/17/19 06:33 MCH 31.7 pg (25.0-35.0) 05/17/19 06:33 MCHC 34.7 g/dL (31.0-37.0) 05/17/19 06:33 RDW 14.3 % (11.5-15.5) 05/17/19 06:33 Plt Count 243 k/uL (150-450) 05/17/19 06:33 Neutrophils % 62 % 05/17/19 06:33 Lymphocytes % 25 % 05/17/19 06:33 Monocytes % 6 % 05/17/19 06:33 Eosinophils % 4 % 05/17/19 06:33 Basophils % 1 % 05/17/19 06:33 Neutrophils # 3.3 k/uL (1.3-7.7) 05/17/19 06:33 Lymphocytes # 1.3 k/uL (1.0-4.8) 05/17/19 06:33 Monocytes # 0.3 k/uL (0-1.0) 05/17/19 06:33 Eosinophils # 0.2 k/uL (0-0.7) 05/17/19 06:33 Basophils # 0.1 k/uL (0-0.2) 05/17/19 06:33 PT 16.7 sec (9.0-12.0) H 05/17/19 06:33 INR 1.7 (<1.2) H 05/17/19 06:33 APTT 28.3 sec (22.0-30.0) 05/15/19 18:35 Sodium 138 mmol/L (137-145) 05/17/19 06:33 Potassium 4.1 mmol/L (3.5-5.1) 05/17/19 06:33 Chloride 107 mmol/L (98-107) 05/17/19 06:33 Carbon Dioxide 25 mmol/L (22-30) 05/17/19 06:33 Anion Gap 6 mmol/L 05/17/19 06:33 BUN 23 mg/dL (7-17) H 05/17/19 06:33 Creatinine 0.74 mg/dL (0.52-1.04) 05/17/19 06:33 Est GFR (CKD-EPI)AfAm 90 (>60 ml/min/1.73 sqM) 05/17/19 06:33 Est GFR (CKD-EPI)NonAf 78 (>60 ml/min/1.73 sqM) 05/17/19 06:33 Glucose 87 mg/dL (74-99) 05/17/19 06:33 Plasma Lactic Acid Abdiaziz 1.2 mmol/L (0.7-2.0) 05/15/19 18:35 Calcium 8.7 mg/dL (8.4-10.2) 05/17/19 06:33 Total Bilirubin 0.9 mg/dL (0.2-1.3) 05/15/19 18:35 AST 29 U/L (14-36) 05/15/19 18:35 ALT <6 U/L (9-52) L 05/15/19 18:35 Alkaline Phosphatase 51 U/L (38-126) 05/15/19 18:35 Total Protein 7.7 g/dL (6.3-8.2) 05/15/19 18:35 Albumin 4.4 g/dL (3.5-5.0) 05/15/19 18:35 Urine Color Yellow 05/15/19 Unknown Urine Appearance Cloudy (Clear) H 05/15/19 Unknown Urine pH 6.0 (5.0-8.0) 05/15/19 Unknown Ur Specific Equality 1.020 (1.001-1.035) 05/15/19 Unknown Urine Protein 1+ (Negative) H 05/15/19 Unknown Urine Glucose (UA) Negative (Negative) 05/15/19 Unknown Urine Ketones Negative (Negative) 05/15/19 Unknown Urine Blood Small (Negative) H 05/15/19 Unknown Urine Nitrite Negative (Negative) 05/15/19 Unknown Urine Bilirubin Negative (Negative) 05/15/19 Unknown Urine Urobilinogen 2.0 mg/dL (<2.0) 05/15/19 Unknown Ur Leukocyte Esterase Large (Negative) H 05/15/19 Unknown Urine RBC 8 /hpf (0-5) H 05/15/19 Unknown Urine WBC >182 /hpf (0-5) H 05/15/19 Unknown Urine WBC Clumps Rare /hpf (None) H 05/15/19 Unknown Ur Squamous Epith Cells <1 /hpf (0-4) 05/15/19 Unknown Urine Bacteria Rare /hpf (None) H 05/15/19 Unknown Hyaline Casts 5 /lpf (0-2) H 05/15/19 Unknown Urine Mucus Rare /hpf (None) H 05/15/19 Unknown Microbiology 05/15/19 Unknown Urine,Voided Urine Culture - Final Escherichia coli 05/15/19 18:50 Blood Blood Culture - Preliminary No Growth after 48 hours Assessment and Plan (1) History of infection due to ESBL Escherichia coli Narrative/Plan: 79-year-old woman who has recurrent urinary tract infection again presents to Hospital symptomatic feeling poorly with a markedly abnormal urinalysis and urine culture is now showing evidence of recurrence of her ESBL E. coli infection. She has try to mitigate her circumstances in the home setting. There is a notation of possibly adding topical estrogen however with her history of prior deep venous thrombosis likely would not be indicated at this time. If she has not had a gynecological evaluation this can be arranged in the outpatient clinic and that if she does have abnormality possibly a pessary or other interventions may be helpful. We'll likely need to arrange for outpatient Invanz. Current Visit: Yes Status: Acute Code(s): Z86.19 - PERSONAL HISTORY OF OTHER INFECTIOUS AND PARASITIC DISEASES SNOMED Code(s): 619187362 (2) Urinary tract infection Current Visit: Yes Status: Acute Code(s): N39.0 - URINARY TRACT INFECTION, SITE NOT SPECIFIED SNOMED Code(s): 19185706
[2019-05-18 07:35] LABS: Basophils % (A) 1 %; Eosinophils # (A) 0.2 k/uL (0-0.7); Eosinophils % (A) 3 %; HCT 32.2 % (34.0-46.0); HGB 11.1 gm/dL (11.4-16.0); Lymphocytes # (A) 1.5 k/uL (1.0-4.8); Lymphocytes % (A) 29 %; MCH 31.9 pg (25.0-35.0); MCHC 34.4 g/dL (31.0-37.0); MCV 92.8 fL (80.0-100.0); Mean Platelet Volume 6.1; Monocytes # (A) 0.3 k/uL (0-1.0); Monocytes % (A) 6 %; Neutrophils % (A) 59 %; Platelet Count 223 k/uL (150-450); RBC 3.47 m/uL (3.80-5.40); RDW 14.2 % (11.5-15.5); WBC 5.1 k/uL (3.8-10.6)
[2019-05-18 07:40] LABS: INR 1.8 (<1.2); Prothrombin Time 17.9 sec (9.0-12.0)
[2019-05-18 07:47] LABS: African American GFR (CKD) >90 (>60 ml/min/1.73 sqM); Anion Gap 7 mmol/L; Blood Urea Nitrogen 20 mg/dL (7-17); Carbon Dioxide 25 mmol/L (22-30); Chloride 107 mmol/L (98-107); Glucose 84 mg/dL (74-99); Potassium 4.3 mmol/L (3.5-5.1); Sodium 139 mmol/L (137-145)
[2019-05-18] MEDS: PANTOPRAZOLE 40 MG TABLET PO SCH (08:51)
[2019-05-18] MEDS: CHOLECALCIFEROL 1,000 UNIT TAB PO SCH (08:51)
[2019-05-18] MEDS: SPIRONOLACTONE 25 MG TAB PO SCH (08:51)
[2019-05-18] MEDS: BISACODYL 5 MG TABLET.DR PO SCH ×2 (08:51→20:21)
[2019-05-18] MEDS: CARBIDOPA-LEVODOPA ER 25-100MG 1 EACH TABLET.ER PO SCH ×4 (08:52→21:39)
[2019-05-18] MEDS: LISINOPRIL-HCTZ 10-12.5 MG 1 EACH TAB PO SCH (08:52)
[2019-05-18] MEDS: ACETAMINOPHEN TAB 325 MG TAB PO PRN ×2 (08:59→21:55)
--- NOTE | 2019-05-18 17:20 | P.PN ---
Subjective 79-year-old the female is admitted for urinary tract infection sepsis secondary to UTI, patient is found to have he is twice a day for and patient is on ertapenem patient will receive a PICC line tomorrow will be discharged with home care or discharged to subacute rehabilitation. Patient is Complaining of frequent urination because of IV fluids. Constitutional: Denied any fatigue denied any fever. Cardio vascular: denied any chest pain, palpitations Gastrointestinal denied any nausea vomiting Pulmonary: Denied any shortness of breath cough Neurologic denied any new focal deficits All inpatient medications were reviewed and appropriate changes in these medications as dictated in the interval history and assessment and plan. Objective - Vital Signs Vital signs: Vital Signs Temp 98.1 F 05/18/19 11:43 Pulse 61 05/18/19 11:43 Resp 16 05/18/19 11:43 BP 139/68 05/18/19 11:43 Pulse Ox 95 05/18/19 11:43 Intake & Output 05/17/19 05/18/19 05/18/19 18:59 06:59 18:59 Intake Total 360 970 320 Balance 360 970 320 Weight 80 kg Intake: Intake, IV Titration 490 320 Amount Ertapenem 1 gm In Sodium 50 Chloride 0.9% 50 ml @ 100 mls/hr IVPB DAILY@2000 JOSETTE Rx#:[id number] Sodium Chloride 0.9% 1, 440 320 000 ml @ 40 mls/hr IV . Q24H JOSETTE Rx#:[id number] Oral 360 480 Other: Voiding Method Toilet Toilet # Voids 5 8 6 # Bowel Movements 1 - Exam GENERAL: The patient is alert and oriented x3, not in any acute distress. Well developed, well nourished. HEENT: Pupils are round and equally reacting to light. EOMI. No scleral icterus. No conjunctival pallor. Normocephalic, atraumatic. No pharyngeal erythema. No thyromegaly. CARDIOVASCULAR: S1 and S2 present. No murmurs, rubs, or gallops. PULMONARY: Chest is clear to auscultation, no wheezing or crackles. -ABDOMEN: Soft, suprapubic tenderness, LLQ tenderness with no rebound tenderness or guarding, nondistended, normoactive bowel sounds. No palpable organomegaly. Bilateral costovertebral angle tenderness, mild MUSCULOSKELETAL: No joint swelling or deformity. -EXTREMITIES: No cyanosis, clubbing, mild bilateral leg edema NEUROLOGICAL: Gross neurological examination did not reveal any focal deficits. SKIN: No rashes. No petechiae - Labs CBC & Chem 7: 05/18/19 07:03 05/18/19 07:03 Labs: Abnormal Lab Results - Last 24 Hours (Table) 05/18/19 05/18/19 05/18/19 Range/Units 07:03 07:03 07:03 RBC 3.47 L (3.80-5.40) m/uL Hgb 11.1 L (11.4-16.0) gm/dL Hct 32.2 L (34.0-46.0) % PT 17.9 H (9.0-12.0) sec INR 1.8 H (<1.2) BUN 20 H (7-17) mg/dL Microbiology - Last 24 Hours (Table) 05/15/19 Unknown Urine Culture - Final Urine,Voided Escherichia coli 05/15/19 18:50 Blood Culture - Preliminary Blood No Growth after 48 hours Assessment and Plan Plan: -Sepsis secondary to urinary tract infection with ESBL E. coli, patient is on ertapenem which will be continued -Hypertension -Gastroesophageal reflux disease History of ulcerative colitis, Parkinson's -Hypertension For above-mentioned chronic medical problems patient will be continued on appropriate home medications
[2019-05-18] MEDS ORDERED: WARFARIN 3 MG TAB PO ONE (18:00)
[2019-05-18] MEDS: ERTAPENEM 1 GM in SODIUM CHLORIDE 0.9% 50 ML IVPB SCH (19:39)
--- NOTE | 2019-05-18 20:16 | P.PN ---
Subjective Progress Note Date: 05/18/19 79-year-old female with history of her family in the outpatient setting relates that she was not feeling well she developed fever dysuria and increasing weakness and presented to the emergency center a few days prior. She had workup and was placed on levofloxacin for a urinary tract infection. She has known difficulties with prior urinary infections and urinary incontinence. Has continued to have ongoing bouts of urinary tract infections that are symptomatic. Again presents to the emergency room with dysuria, urinary frequency malaise and weakness and consequently urinalysis was performed which was markedly abnormal and she was admitted to hospital. She was seen by ID coverage, no caries been resumed. Ertapenem was utilized because of her history of ESBL infection. Feeling better today. 05/18/2019 daughter present and educated on recurrent UTI and eitology. Fells better today, less pain in flank and suprapubic area, less dysuria and frequency. Objective - Vital Signs Vital signs: Vital Signs Temp 98.1 F 05/18/19 11:43 Pulse 61 05/18/19 11:43 Resp 16 05/18/19 11:43 BP 139/68 05/18/19 11:43 Pulse Ox 95 05/18/19 11:43 Intake & Output 05/18/19 05/18/19 05/19/19 06:59 18:59 06:59 Intake Total 970 320 Balance 970 320 Weight 80 kg Intake: Intake, IV Titration 490 320 Amount Ertapenem 1 gm In Sodium 50 Chloride 0.9% 50 ml @ 100 mls/hr IVPB DAILY@2000 [facility] Rx#:[id number] Sodium Chloride 0.9% 1, 440 320 000 ml @ 40 mls/hr IV . Q24H [facility] Rx#:[id number] Oral 480 Other: Voiding Method Toilet Toilet # Voids 8 6 # Bowel Movements 1 - Exam Elderly woman appears improved from admission HEENT: Anicteric conjunctiva are pink and moist nasal mucosa grossly intact without significant lesions, there is no thrush. Neck: The neck is supple without significant lymphadenopathy or thyromegaly. Lungs: Good bilateral air entry without significant crackles or wheezing. There is no significant bronchial sounds. There is no egophony or dullness. Heart: Regular rate and rhythm with an audible S1-S2, no S3 no S4. There is no significant murmur click or rub, PMI was nondisplaced. Abdomen: Positive bowel sounds, abdomen is soft she has some mild left flank tenderness and suprapubic tenderness but there is no guarding or rigidity or rebound Extremities: The upper extremities have excellent pulses they are symmetric, no significant petechiae or telangiectasia. No splinter hemorrhages were noted. The lower extremities are free from significant edema. The peripheral pulses were 2+ and symmetric. Neuro: Awake alert oriented to person place and time. There are no acute new gross focal sensory motor deficits. - Labs CBC & Chem 7: 05/18/19 07:03 05/18/19 07:03 Labs: Abnormal Lab Results - Last 24 Hours (Table) 05/18/19 05/18/19 05/18/19 Range/Units 07:03 07: 07:03 RBC 3.47 L (3.80-5.40) m/uL Hgb 11.1 L (11.4-16.0) gm/dL Hct 32.2 L (34.0-46.0) % PT 17.9 H (9.0-12.0) sec INR 1.8 H (<1.2) BUN 20 H (7-17) mg/dL Microbiology - Last 24 Hours (Table) 05/15/19 Unknown Urine Culture - Final Urine,Voided Escherichia coli 05/15/19 18:50 Blood Culture - Preliminary Blood No Growth after 48 hours Laboratory Results WBC 5.1 k/uL (3.8-10.6) 05/18/19 07:03 RBC 3.47 m/uL (3.80-5.40) L 05/18/19 07:03 Hgb 11.1 gm/dL (11.4-16.0) L 05/18/19 07:03 Hct 32.2 % (34.0-46.0) L 05/18/19 07:03 MCV 92.8 fL (80.0-100.0) 05/18/19 07:03 MCH 31.9 pg (25.0-35.0) 05/18/19 07:03 MCHC 34.4 g/dL (31.0-37.0) 05/18/19 07:03 RDW 14.2 % (11.5-15.5) 05/18/19 07:03 Plt Count 223 k/uL (150-450) 05/18/19 07:03 Neutrophils % 59 % 05/18/19 07:03 Lymphocytes % 29 % 05/18/19 07:03 Monocytes % 6 % 05/18/19 07:03 Eosinophils % 3 % 05/18/19 07:03 Basophils % 1 % 05/18/19 07:03 Neutrophils # 3.0 k/uL (1.3-7.7) 05/18/19 07:03 Lymphocytes # 1.5 k/uL (1.0-4.8) 05/18/19 07:03 Monocytes # 0.3 k/uL (0-1.0) 05/18/19 07:03 Eosinophils # 0.2 k/uL (0-0.7) 05/18/19 07:03 Basophils # 0.0 k/uL (0-0.2) 05/18/19 07:03 PT 17.9 sec (9.0-12.0) H 05/18/19 07:03 INR 1.8 (<1.2) H 05/18/19 07:03 APTT 28.3 sec (22.0-30.0) 05/15/19 18:35 Sodium 139 mmol/L (137-145) 05/18/19 07:03 Potassium 4.3 mmol/L (3.5-5.1) 05/18/19 07:03 Chloride 107 mmol/L (98-107) 05/18/19 07:03 Carbon Dioxide 25 mmol/L (22-30) 05/18/19 07:03 Anion Gap 7 mmol/L 05/18/19 07:03 BUN 20 mg/dL (7-17) H 05/18/19 07:03 Creatinine 0.66 mg/dL (0.52-1.04) 05/18/19 07:03 Est GFR (CKD-EPI)AfAm >90 (>60 ml/min/1.73 sqM) 05/18/19 07:03 Est GFR (CKD-EPI)NonAf 84 (>60 ml/min/1.73 sqM) 05/18/19 07:03 Glucose 84 mg/dL (74-99) 05/18/19 07:03 Plasma Lactic Acid Abdiaziz 1.2 mmol/L (0.7-2.0) 05/15/19 18:35 Calcium 9.0 mg/dL (8.4-10.2) 05/18/19 07:03 Total Bilirubin 0.9 mg/dL (0.2-1.3) 05/15/19 18:35 AST 29 U/L (14-36) 05/15/19 18:35 ALT <6 U/L (9-52) L 05/15/19 18:35 Alkaline Phosphatase 51 U/L (38-126) 05/15/19 18:35 Total Protein 7.7 g/dL (6.3-8.2) 05/15/19 18:35 Albumin 4.4 g/dL (3.5-5.0) 05/15/19 18:35 Urine Color Yellow 05/15/19 Unknown Urine Appearance Cloudy (Clear) H 05/15/19 Unknown Urine pH 6.0 (5.0-8.0) 05/15/19 Unknown Ur Specific [place] 1.020 (1.001-1.035) 05/15/19 Unknown Urine Protein 1+ (Negative) H 05/15/19 Unknown Urine Glucose (UA) Negative (Negative) 05/15/19 Unknown Urine Ketones Negative (Negative) 05/15/19 Unknown Urine Blood Small (Negative) H 05/15/19 Unknown Urine Nitrite Negative (Negative) 05/15/19 Unknown Urine Bilirubin Negative (Negative) 05/15/19 Unknown Urine Urobilinogen 2.0 mg/dL (<2.0) 05/15/19 Unknown Ur Leukocyte Esterase Large (Negative) H 05/15/19 Unknown Urine RBC 8 /hpf (0-5) H 05/15/19 Unknown Urine WBC >182 /hpf (0-5) H 05/15/19 Unknown Urine WBC Clumps Rare /hpf (None) H 05/15/19 Unknown Ur Squamous Epith Cells <1 /hpf (0-4) 05/15/19 Unknown Urine Bacteria Rare /hpf (None) H 05/15/19 Unknown Hyaline Casts 5 /lpf (0-2) H 05/15/19 Unknown Urine Mucus Rare /hpf (None) H 05/15/19 Unknown Microbiology 05/15/19 Unknown Urine,Voided Urine Culture - Final Escherichia coli 05/15/19 18:50 Blood Blood Culture - Preliminary No Growth after 48 hours Assessment and Plan (1) History of infection due to ESBL Escherichia coli Narrative/Plan: 79-year-old woman who has recurrent urinary tract infection again presents to Hospital symptomatic feeling poorly with a markedly abnormal urinalysis and urine culture is now showing evidence of recurrence of her ESBL E. coli infection. She has try to mitigate her circumstances in the home setting. There is a notation of possibly adding topical estrogen however with her history of prior deep venous thrombosis likely would not be indicated at this time. If she has not had a gynecological evaluation this can be arranged in the outpatient clinic and that if she does have abnormality possibly a pessary or other interventions may be helpful. We'll likely need to arrange for outpatient Invanz. 05/18 midline is ordered and daughter will plan on bringing patient to office for IV Invanz. Maneuvers to reduce infection again stressed including wearing a fresh brief without additional pads, using a fresh moist wipe each time always front to back and dont reuse. Cystex advised to attempt to reduce frequency of infections. Follow up in office at end of therapy. Current Visit: Yes Status: Acute Code(s): Z86.19 - PERSONAL HISTORY OF OTHER INFECTIOUS AND PARASITIC DISEASES SNOMED Code(s): 653773117 (2) Urinary tract infection Current Visit: Yes Status: Acute Code(s): N39.0 - URINARY TRACT INFECTION, SITE NOT SPECIFIED SNOMED Code(s): 19864803
[2019-05-18] MEDS: Mirabegron [Myrbetriq] 25 MG PO SCH (20:19)
[2019-05-18] MEDS: SODIUM CHLORIDE 0.9% 1,000 ML IV SCH (20:21)
[2019-05-19 07:58] LABS: Calcium 9.4 mg/dL (8.4-10.2); Potassium 4.3 mmol/L (3.5-5.1)
[2019-05-19 08:05] LABS: INR 1.9 (<1.2)
[2019-05-19 08:15] LABS: Basophils # (A) 0.1 k/uL (0-0.2); Basophils % (A) 1 %; Eosinophils # (A) 0.2 k/uL (0-0.7); Eosinophils % (A) 3 %; HCT 34.9 % (34.0-46.0); HGB 12.1 gm/dL (11.4-16.0); Lymphocytes # (A) 1.6 k/uL (1.0-4.8); Lymphocytes % (A) 27 %; MCH 31.7 pg (25.0-35.0); MCHC 34.7 g/dL (31.0-37.0); MCV 91.5 fL (80.0-100.0); Mean Platelet Volume 6.2; Monocytes # (A) 0.3 k/uL (0-1.0); Monocytes % (A) 5 %; Neutrophils # (A) 3.8 k/uL (1.3-7.7); Neutrophils % (A) 62 %; Platelet Count 248 k/uL (150-450); RBC 3.81 m/uL (3.80-5.40); RDW 14.3 % (11.5-15.5); WBC 6.1 k/uL (3.8-10.6)
[2019-05-19] MEDS: PANTOPRAZOLE 40 MG TABLET PO SCH (09:59)
[2019-05-19] MEDS: CARBIDOPA-LEVODOPA ER 25-100MG 1 EACH TABLET.ER PO SCH ×2 (10:00→14:55)
[2019-05-19] MEDS: LISINOPRIL-HCTZ 10-12.5 MG 1 EACH TAB PO SCH (10:00)
[2019-05-19] MEDS: SPIRONOLACTONE 25 MG TAB PO SCH (10:00)
[2019-05-19] MEDS: BISACODYL 5 MG TABLET.DR PO SCH (10:00)
[2019-05-19] MEDS: CHOLECALCIFEROL 1,000 UNIT TAB PO SCH (10:00)
[2019-05-19] MEDS: ACETAMINOPHEN TAB 325 MG TAB PO PRN (10:03)
[2019-05-19 12:58] VITALS: BP 169/70; PULSE 66; RESP 18; TEMP 98.6
[2019-05-19] MEDS: ERTAPENEM 1 GM in SODIUM CHLORIDE 0.9% 50 ML IVPB SCH (14:55)
[2019-05-19] MEDS ORDERED: WARFARIN 3 MG TAB PO ONE (18:00)
--- NOTE | 2019-05-19 23:49 | P.DS ---
Providers Date of admission: 05/18/19 09:48 Expected date of discharge: 05/19/19 Attending physician: Tim Levy Consults: 05/16/19 12:10 Consult Physician Routine Consulting Provider: Faustino Pruett Consult Reason/Comments: UTIs Do you want consulting provider notified?: Yes Primary care physician: Angel [facility] Course: Chief Complaint:urinary symptom Interval history: This is a very pleasant 78-year-old patient of Dr. Benitez. Lives with her daughter. Chronic stable medical conditions include asthma hypertension osteoarthritis, diverticulosis, Parkinson's disease,. Patient also got chronic DVT and chronically on Coumadin. CHF with EF of 55-60% patient has chronic lower extremities swelling from venous insufficiency. Patient's had previous UTIs. Patient was here in March and urine did grow E. coli with ESBL. Was treated with Invanz. Patient was discharged to ECF. was then readmitted on April 11 again with UTI and cystitis with cultures positive for E. coli/ESBL.was discharged to the ECF with IV Invanz for 12 days. again admitted with urinary symptoms. Urine was again positive for E. coli/ESBL.. Had a midline placed. Symptoms are much better. Being discharged on IV Invanz. Seen by Dr. Pruett. Feeling back to baseline.patient will come to the hospital daily for IV antibiotics. Consultation: Dr. Pruett from infectious disease Physical examination: VITAL SIGNS: cardiac 0.6, 66, 18, 169/70, 95% room air GENERAL: Sitting up, comfortable EYES: Pupils equal. Conjunctiva normal. HEENT: External appearance of nose and ears normal, oral cavity grossly normal. NECK: JVD not raised; masses not palpable. HEART: First and second heart sounds are normal; edema present. LUNGS: Respiratory rate increased, decreased breath sounds ABDOMEN: Soft, no tenderness, liver spleen not palpable, no masses palpable. PSYCH: Alert and oriented x3; mood and affect normal. Investigations reviewed in the clinical context: white count 6.1 hemoglobin 12.1 INR 1.9 potassium 4.3 Urine culture growing ESBL/E. coli Discharge diagnoses: -Acute UTI with cystitis recurrent s with,cultures positive for E. coli/ESBL, -Chronic congestive heart failure from diastolic dysfunction EF 55-60% -Obesity BMI 34.5 -Chronic DVT for which patient chronically on Coumadin -GERD -Essential hypertension -Mild cognitive impairment from underlying Alzheimer's dementia -Primary osteoarthritis -Idiopathic Parkinson's disease -Chronic urinary stress incontinence -Chronic gait dysfunction uses a walker -Chronic lower extremity swelling from DVT causing venous insufficiency Disposition: home Patient Condition at Discharge: Stable Plan - Discharge Summary Discharge Rx Participant: Yes New Discharge Prescriptions: New Ertapenem [INVanz] 1 gm IVPB Q24H #14 bag Continue Omeprazole [PriLOSEC] 20 mg PO BID Carbidopa-Levodopa ER 25-100Mg [Sinemet CR 25-100 mg] 1 tab PO QID Spironolactone [Aldactone] 25 mg PO DAILY tab Sennosides-Docusate Sodium [Senokot-S] 1 tab PO DAILY PRN PRN Reason: Constipation Mirabegron [Myrbetriq] 25 mg PO HS Cholecalciferol [Vitamin D3 (25 Mcg = 1000 Iu)] 2,000 unit PO DAILY Bisacodyl [Dulcolax] 5 mg PO BID Acetaminophen Tab [Tylenol] 500 mg PO TID PRN PRN Reason: Pain Lisinopril-Hctz 10-12.5 mg [Zestoretic 10-12.5] 1 tab PO DAILY Warfarin [Coumadin] 1.25 mg PO DAILY@1500 Discharge Medication List Carbidopa-Levodopa ER 25-100Mg [Sinemet CR 25-100 mg] 1 tab PO QID 01/11/19 [History] Omeprazole [PriLOSEC] 20 mg PO BID 01/11/19 [History] Spironolactone [Aldactone] 25 mg PO DAILY tab 01/25/19 [Rx] Mirabegron [Myrbetriq] 25 mg PO HS 02/11/19 [History] Sennosides-Docusate Sodium [Senokot-S] 1 tab PO DAILY PRN 02/11/19 [History] Acetaminophen Tab [Tylenol] 500 mg PO TID PRN 02/19/19 [History] Bisacodyl [Dulcolax] 5 mg PO BID 02/19/19 [History] Cholecalciferol [Vitamin D3 (25 Mcg = 1000 Iu)] 2,000 unit PO DAILY 02/19/19 [History] Lisinopril-Hctz 10-12.5 mg [Zestoretic 10-12.5] 1 tab PO DAILY 03/09/19 [History] Warfarin [Coumadin] 1.25 mg PO DAILY@1500 04/07/19 [History] Ertapenem [INVanz] 1 gm IVPB Q24H #14 bag 05/18/19 [Rx] Follow up Appointment(s)/Referral(s): Angel Benitez DO [Primary Care Provider] - 1-2 days (Dr. Benitez's office will call patient with an appointment date and time.) Faustino Pruett MD [STAFF PHYSICIAN] - 1 Week [facility], [NON-STAFF] - As Needed Ambulatory/Diagnostic Orders: Basic Metabolic Panel [LAB.AMB] Location: None Selected Complete Blood Count w/diff [LAB.AMB] Location: None Selected Patient Instructions/Handouts: Ertapenem (By injection), Urinary Tract Infection in Women (DC), Extended Spectrum Beta Lactamase (GEN) Activity/Diet/Wound Care/Special Instructions: Patient to go to [facility] - Dr. Pruett office tomorrow at 2:45 for her infusion. Discharge Disposition: HOME WITH HOME HEALTH SERVICES
== END 2019-05-19 16:50 | disposition home health service (06) | DRG 872 ==
LOC: EC 17:30 → 4SSUR 20:40 → 3NMEDONC 05-17 17:04 → OBSVTOIN 05-18 09:48
PROVIDERS: ADMIT Hospitalist; ATTEND Hospitalist
PROC: 05HF33Z Insertion of Infusion Device into Left Cephalic Vein, Percutaneous Approach (ICD-10-PCS; principal; 2019-05-19 09:25)
DX: A41.51 Sepsis due to Escherichia coli [E. coli] (principal); I50.32 Chronic diastolic (congestive) heart failure; K51.90 Ulcerative colitis, unspecified, without complications; I82.509 Chronic embolism and thrombosis of unspecified deep veins of unspecified lower extremity; I11.0 Hypertensive heart disease with heart failure; I87.2 Venous insufficiency (chronic) (peripheral); K21.9 Gastro-esophageal reflux disease without esophagitis; N30.90 Cystitis, unspecified without hematuria; Z86.19 Personal history of other infectious and parasitic diseases; E66.9 Obesity, unspecified; F02.80 Dementia in other diseases classified elsewhere, unspecified severity, without behavioral disturbance, psychotic disturbance, mood disturbance, and anxiety; F41.9 Anxiety disorder, unspecified; G20 Parkinson's disease; G30.9 Alzheimer's disease, unspecified; J45.909 Unspecified asthma, uncomplicated; K57.90 Diverticulosis of intestine, part unspecified, without perforation or abscess without bleeding; M19.90 Unspecified osteoarthritis, unspecified site; N32.81 Overactive bladder; N39.3 Stress incontinence (female) (male); Z16.12 Extended spectrum beta lactamase (ESBL) resistance; Z68.34 Body mass index [BMI] 34.0-34.9, adult; Z78.0 Asymptomatic menopausal state; Z79.01 Long term (current) use of anticoagulants; Z79.899 Other long term (current) drug therapy; Z80.0 Family history of malignant neoplasm of digestive organs; Z82.49 Family history of ischemic heart disease and other diseases of the circulatory system; Z82.5 Family history of asthma and other chronic lower respiratory diseases; Z86.711 Personal history of pulmonary embolism; Z86.73 Personal history of transient ischemic attack (TIA), and cerebral infarction without residual deficits; Z87.440 Personal history of urinary (tract) infections; Z88.0 Allergy status to penicillin; Z90.710 Acquired absence of both cervix and uterus; Z98.49 Cataract extraction status, unspecified eye; Z96.1 Presence of intraocular lens; Z83.2 Family history of diseases of the blood and blood-forming organs and certain disorders involving the immune mechanism; Z88.7 Allergy status to serum and vaccine; Z91.041 Radiographic dye allergy status; R26.9 Unspecified abnormalities of gait and mobility
CPT/HCPCS: 36410; 36415; 76770; 76937; 80048; 80053; 81001; 83605; 85025; 85610; 85730; 87040; 87077; 87086; 87186; 96361; 96365; 99285

== ENCOUNTER 2019-06-26 13:26 | Inpatient (IN) | payer MEDICARE, OTHER ==
[2019-06-26] MEDS ORDERED: SODIUM CHLORIDE 0.9% 500 ML 500 ML IV STA (13:47)
[2019-06-26] MEDS ORDERED: SODIUM CHLORIDE 0.9% 1,000 ML IV STA (13:47)
--- NOTE | 2019-06-26 13:55 | ED ---
General Adult HPI - General Chief complaint: Syncope Stated complaint: Syncope Time Seen by Provider: 06/26/19 13:35 Source: patient, RN notes reviewed Mode of arrival: wheelchair Limitations: physical limitation - History of Present Illness Initial comments: Patient is a pleasant 79-year-old female presenting to the emergency Department with complaints of feeling lightheaded. Onset of symptoms was a couple of days ago. Symptoms have progressed since that time. Patient fell today when symptoms get worse that she could pass out. Patient did not actually pass out. Symptoms are somewhat worse with upright and movement. No confusion. No isolated area of weakness. Patient states No history of similar symptoms previously. Patient does have history of recent urinary tract infections, last was a few months ago. Daughter states there may be somewhat symptoms similar to that. Patient admits her urine does look a little bit more dark than normal. Patient has been complaining of some mild abdominal cramping. - Related Data Home Medications Medication Instructions Recorded Confirmed Carbidopa-Levodopa ER 25-100Mg 1.5 tab PO Q3HR 01/11/19 06/26/19 [Sinemet CR 25-100 mg] Omeprazole [PriLOSEC] 20 mg PO BID 01/11/19 06/26/19 Mirabegron [Myrbetriq] 25 mg PO HS 02/11/19 06/26/19 Sennosides-Docusate Sodium 1 tab PO DAILY PRN 02/11/19 06/26/19 [Senokot-S] Acetaminophen Tab [Tylenol] 500 mg PO TID PRN 02/19/19 06/26/19 Bisacodyl [Dulcolax] 5 mg PO BID 02/19/19 06/26/19 Cholecalciferol [Vitamin D3 (25 2,000 unit PO DAILY 02/19/19 06/26/19 Mcg = 1000 Iu)] Lisinopril-Hctz 10-12.5 mg 1 tab PO DAILY 03/09/19 06/26/19 [Zestoretic 10-12.5] Warfarin [Coumadin] 1.25 mg PO SUTUWETHFRSA@1500 04/07/19 06/26/19 amLODIPine [Norvasc] 5 mg PO DAILY 06/26/19 06/26/19 Previous Rx's Medication Instructions Recorded Spironolactone [Aldactone] 25 mg PO DAILY tab 01/25/19 Allergies Allergy/AdvReac Type Severity Reaction Status Date / Time Influenza Virus Vaccines Allergy Swelling Verified 06/26/19 14:35 Iodinated Contrast Media Allergy Chest Pain Verified 06/26/19 14:35 [Iodinated Contrast- Oral and IV Dye] Penicillins Allergy Anaphylaxis Verified 06/26/19 14:35 Review of Systems ROS Statement: Those systems with pertinent positive or pertinent negative responses have been documented in the HPI. ROS Other: All systems not noted in ROS Statement are negative. Constitutional: Denies: fever Eyes: Denies: eye pain ENT: Denies: ear pain Respiratory: Denies: cough Cardiovascular: Denies: chest pain, palpitations Endocrine: Denies: fatigue Gastrointestinal: Reports: as per HPI. Denies: vomiting Genitourinary: Reports: as per HPI Musculoskeletal: Denies: back pain Skin: Denies: rash Neurological: Denies: headache, confusion Past Medical History Past Medical History: Asthma, Heart Failure, CVA/TIA, Deep Vein Thrombosis (DVT), GERD/Reflux, Hypertension, Memory Impairment, Musculoskeletal Disorder, Neurologic Disorder, Osteoarthritis (OA) Additional Past Medical History / Comment(s): Ulcerative colitis, diverticulitis, parkinson's disease, CVA which pt was unaware of having-showed on cat scan, several DVTs bilateral legs and pt states since she has had intermittent bilateral ankle edema, thrombophlebitis, PE-pt cannot recall laterallity, generalized arthritis, urinary leakage, a few UTIs, shingles History of Any Multi-Drug Resistant Organisms: ESBL Date of last positivie culture/infection: 06/07/19 ESBL E.coli MDRO Source:: Urine Past Surgical History: Cholecystectomy, Hysterectomy, Orthopedic Surgery, Tubal Ligation Additional Past Surgical History / Comment(s): L shoulder injury with surgery to repair, removals of DVTs bilateral legs, cataract removal/lens implants, colonoscopies. Past Anesthesia/Blood Transfusion Reactions: Postoperative Nausea & Vomiting (PONV) Additional Past Anesthesia/Blood Transfusion Reaction / Comment(s): Pt received blood with hysterectomy without reaction. Past Psychological History: Anxiety Smoking Status: Never smoker Past Alcohol Use History: None Reported Past Drug Use History: None Reported - Past Family History Father Family Medical History: Asthma, Cancer, COPD Additional Family Medical History / Comment(s): Gallbladder cancer Mother Family Medical History: Myocardial Infarction (NC) Additional Family Medical History / Comment(s): Mother of a NC at the age of 48 yrs. Sister(s) Additional Family Medical History / Comment(s): Sister of a blood clot at age 38 yrs-pt cannot recall specifics. General Exam Limitations: physical limitation General appearance: alert, in no apparent distress Head exam: Present: atraumatic Eye exam: Present: normal appearance, PERRL, EOMI. Absent: nystagmus ENT exam: Present: normal oropharynx Neck exam: Present: normal inspection Respiratory exam: Present: normal lung sounds bilaterally Cardiovascular Exam: Present: regular rate, normal rhythm Expanded Peripheral pulses: 2+: Radial (R), Radial (L), Posterior Tibialis (R), Posterior Tibialis (L), Dorsalis Pedis (R), Dorsalis Pedis (L) GI/Abdominal exam: Present: soft. Absent: tenderness, pulsatile mass Extremities exam: Present: normal inspection. Absent: pedal edema, calf tenderness Neurological exam: Present: alert, CN II-XII intact. Absent: motor sensory deficit Expanded Neurological exam: Present: protecting the airway Speech: Present: fluid speech Sensory exam: Upper Extremity Light Touch: Normal, Lower Extremity Light Touch: Normal Motor strength exam: RUE: 5, LUE: 5, RLE: 5, LLE: 5 Eye Response: (4) open spontaneously Motor Response: (6) obeys commands Verbal Response: (5) oriented Psychiatric exam: Present: normal affect, normal mood Skin exam: Present: normal color Course Vital Signs 06/26/19 06/26/19 06/26/19 13:29 14:08 15:28 Temperature 97.0 F L Pulse Rate 80 71 Pulse Rate [ 73 Right Sitting] Pulse Rate [ 70 Right Supine] Respiratory 18 18 18 Rate Blood Pressure 88/50 140/61 Blood Pressure 97/47 [Right Arm Sitting] Blood Pressure 111/46 [Right Arm Supine] O2 Sat by Pulse 97 95 96 Oximetry EKG Findings - EKG Comments: EKG Findings:: Normal sinus rhythm 76. MD 136. QRS 88. QT 372. QTC 418. Normal axis. Normal QRS. No acute ST change. Medical Decision Making - Medical Decision Making Patient reevaluated and resting comfortably in bed. Patient updated on results and plan. Case was discussed in detail with Dr. Gupta, covering for Dr. Benitez, who will admit. - Lab Data Result diagrams: 06/26/19 13:55 06/26/19 13:55 Lab Results 06/26/19 06/26/19 06/26/19 Range/Units 13:55 13:55 13:55 WBC 6.5 (3.8-10.6) k/uL RBC 3.82 (3.80-5.40) m/uL Hgb 12.3 (11.4-16.0) gm/dL Hct 35.3 (34.0-46.0) % MCV 92.6 (80.0-100.0) fL MCH 32.1 (25.0-35.0) pg MCHC 34.7 (31.0-37.0) g/dL RDW 12.8 (11.5-15.5) % Plt Count 301 (150-450) k/uL Neutrophils % 64 % Lymphocytes % 28 % Monocytes % 5 % Eosinophils % 1 % Basophils % 1 % Neutrophils # 4.1 (1.3-7.7) k/uL Lymphocytes # 1.8 (1.0-4.8) k/uL Monocytes # 0.4 (0-1.0) k/uL Eosinophils # 0.1 (0-0.7) k/uL Basophils # 0.0 (0-0.2) k/uL PT 13.3 H (9.0-12.0) sec INR 1.3 H (<1.2) APTT 25.1 (22.0-30.0) sec Sodium 136 L (137-145) mmol/L Potassium 4.2 (3.5-5.1) mmol/L Chloride 103 (98-107) mmol/L Carbon Dioxide 22 (22-30) mmol/L Anion Gap 11 mmol/L BUN 27 H (7-17) mg/dL Creatinine 1.20 H (0.52-1.04) mg/dL Est GFR (CKD-EPI)AfAm 50 (>60 ml/min/1.73 sqM) Est GFR (CKD-EPI)NonAf 43 (>60 ml/min/1.73 sqM) Glucose 164 H (74-99) mg/dL Calcium 9.4 (8.4-10.2) mg/dL Magnesium 1.9 (1.6-2.3) mg/dL Total Bilirubin 0.7 (0.2-1.3) mg/dL AST 17 (14-36) U/L ALT 6 L (9-52) U/L Alkaline Phosphatase 44 (38-126) U/L Troponin I (0.000-0.034) ng/mL Total Protein 7.0 (6.3-8.2) g/dL Albumin 4.1 (3.5-5.0) g/dL Urine Color Urine Appearance (Clear) Urine pH (5.0-8.0) Ur Specific [place] (1.001-1.035) Urine Protein (Negative) Urine Glucose (UA) (Negative) Urine Ketones (Negative) Urine Blood (Negative) Urine Nitrite (Negative) Urine Bilirubin (Negative) Urine Urobilinogen (<2.0) mg/dL Ur Leukocyte Esterase (Negative) Urine WBC (0-5) /hpf Urine WBC Clumps (None) /hpf Ur Squamous Epith Cells (0-4) /hpf Urine Bacteria (None) /hpf Hyaline Casts (0-2) /lpf Urine Mucus (None) /hpf 06/26/19 06/26/19 Range/Units 13:55 14:05 WBC (3.8-10.6) k/uL RBC (3.80-5.40) m/uL Hgb (11.4-16.0) gm/dL Hct (34.0-46.0) % MCV (80.0-100.0) fL MCH (25.0-35.0) pg MCHC (31.0-37.0) g/dL RDW (11.5-15.5) % Plt Count (150-450) k/uL Neutrophils % % Lymphocytes % % Monocytes % % Eosinophils % % Basophils % % Neutrophils # (1.3-7.7) k/uL Lymphocytes # (1.0-4.8) k/uL Monocytes # (0-1.0) k/uL Eosinophils # (0-0.7) k/uL Basophils # (0-0.2) k/uL PT (9.0-12.0) sec INR (<1.2) APTT (22.0-30.0) sec Sodium (137-145) mmol/L Potassium (3.5-5.1) mmol/L Chloride (98-107) mmol/L Carbon Dioxide (22-30) mmol/L Anion Gap mmol/L BUN (7-17) mg/dL Creatinine (0.52-1.04) mg/dL Est GFR (CKD-EPI)AfAm (>60 ml/min/1.73 sqM) Est GFR (CKD-EPI)NonAf (>60 ml/min/1.73 sqM) Glucose (74-99) mg/dL Calcium (8.4-10.2) mg/dL Magnesium (1.6-2.3) mg/dL Total Bilirubin (0.2-1.3) mg/dL AST (14-36) U/L ALT (9-52) U/L Alkaline Phosphatase (38-126) U/L Troponin I <0.012 (0.000-0.034) ng/mL Total Protein (6.3-8.2) g/dL Albumin (3.5-5.0) g/dL Urine Color Yellow Urine Appearance Turbid H (Clear) Urine pH 5.5 (5.0-8.0) Ur Specific [place] 1.020 (1.001-1.035) Urine Protein 1+ H (Negative) Urine Glucose (UA) Negative (Negative) Urine Ketones Trace H (Negative) Urine Blood Small H (Negative) Urine Nitrite Negative (Negative) Urine Bilirubin Negative (Negative) Urine Urobilinogen 2.0 (<2.0) mg/dL Ur Leukocyte Esterase Large H (Negative) Urine WBC >182 H (0-5) /hpf Urine WBC Clumps Many H (None) /hpf Ur Squamous Epith Cells 2 (0-4) /hpf Urine Bacteria Few H (None) /hpf Hyaline Casts 30 H (0-2) /lpf Urine Mucus Occasional H (None) /hpf - Radiology Data Radiology results: report reviewed (Computed tomography scan of the brain reveals senescent changes. No acute process. Abdominal aortic ultrasound shows no abnormality.), image reviewed (Chest x-ray shows no acute process. Abdominal x-ray shows nonobstructive pattern.) Disposition Clinical Impression: Orthostatic hypotension, Urinary tract infection Disposition: ADMITTED IP TO THIS HOSP Is patient prescribed a controlled substance at d/c from ED?: No Referrals: Angel Benitez DO [Primary Care Provider] - 1-2 days Decision Time: 15:34
[2019-06-26 14:11] LABS: Basophils % (A) 1 %; Eosinophils # (A) 0.1 k/uL (0-0.7); Eosinophils % (A) 1 %; HCT 35.3 % (34.0-46.0); HGB 12.3 gm/dL (11.4-16.0); Lymphocytes # (A) 1.8 k/uL (1.0-4.8); Lymphocytes % (A) 28 %; MCH 32.1 pg (25.0-35.0); MCHC 34.7 g/dL (31.0-37.0); MCV 92.6 fL (80.0-100.0); Monocytes # (A) 0.4 k/uL (0-1.0); Monocytes % (A) 5 %; Neutrophils # (A) 4.1 k/uL (1.3-7.7); Neutrophils % (A) 64 %; Platelet Count 301 k/uL (150-450); RBC 3.82 m/uL (3.80-5.40); RDW 12.8 % (11.5-15.5); WBC 6.5 k/uL (3.8-10.6)
[2019-06-26 14:15] LABS: Appearance,Urine Turbid (Clear); Bacteria,Urine Few /hpf; Bilirubin,Urine Negative (Negative); Blood,Urine Small (Negative); Color,Urine Yellow; Glucose,Urine (UA) Negative (Negative); Hyaline Casts,Urine 30 /lpf (0-2); Ketones,Urine Trace (Negative); Leukocyte Esterase,Urine Large (Negative); Mucus,Urine Occasional /hpf; Nitrite,Urine Negative (Negative); PH, Urine 5.5 (5.0-8.0); Protein,Urine 1+ (Negative); Squamous Epithelial Cell,Urine 2 /hpf (0-4)
[2019-06-26 14:19] LABS: Potassium 4.2 mmol/L (3.5-5.1)
[2019-06-26 14:20] LABS: Albumin 4.1 g/dL (3.5-5.0); Calcium 9.4 mg/dL (8.4-10.2); INR 1.3 (<1.2); Magnesium 1.9 mg/dL (1.6-2.3); Partial Thromboplastin Time 25.1 sec (22.0-30.0); Prothrombin Time 13.3 sec (9.0-12.0); Total Bilirubin 0.7 mg/dL (0.2-1.3)
--- NOTE | 2019-06-26 14:56 | CT ---
EXAMINATION TYPE: CT brain wo con DATE OF EXAM: 06/26/2019 HISTORY: Syncope and dizziness. COMPARISON: None TECHNIQUE: 1. Axial CT images of the head without contrast. Bone windows and sagittal and coronal reformats were reviewed. 2. CT DLP: 1098.4 mGycm Automated exposure control for dose reduction was used. FINDINGS: No acute intracranial hemorrhage. Scattered periventricular and deep cortical white matter areas of l ow attenuation, likely representing sequela of chronic microangiopathy. No acute loss of lopez-white m atter differentiation to suggest large territorial infarction. Mild cerebral volume loss with appropriate size and morphology of the ventricular system. No extra-ax ial fluid collections or midline shift of structures. Patent basal cisterns. No depressed or displaced calvarial fracture. Intracranial vascular calcifications. Visualized parana christa sinuses and temporal bone structures are well aerated. The orbits and skull base are unremarkable . IMPRESSION: 1. No acute intracranial abnormality. 2. Senescent changes including cerebral volume loss and sequale of chronic microangiopathy. 3. If there is sufficient clinical concern for acute ischemia, further evaluation with brain MRI is r ecommended.
--- NOTE | 2019-06-26 15:19 | US ---
EXAMINATION TYPE: US duplex aorta DATE OF EXAM: 06/26/2019 COMPARISON: NONE CLINICAL HISTORY: 79-year-old female Evaluate aorta. TECHNIQUE: Multiple sonographic images of the abdominal aorta are obtained. FINDINGS: EXAM MEASUREMENTS: Abdominal Aorta: Proximal: 1.6 x 1.1 cm Mid: 1.3 x 1.3 cm Distal: 1.3 x .9 cm Bifurcation: .7 x 1.2 cm, 1.1 x 1.3 cm IMPRESSION: No sonographic evidence for abdominal aortic ectasia or aneurysm.
--- NOTE | 2019-06-26 15:20 | XR ---
EXAMINATION TYPE: XR chest 2V DATE OF EXAM: 06/26/2019 COMPARISON: NONE HISTORY: Syncope and dizziness TECHNIQUE: Frontal and lateral views of the chest are obtained. FINDINGS: There is no focal air space opacity, pleural effusion, or pneumothorax seen. The cardiac silhouette size is within normal limits. The osseous structures are intact. IMPRESSION: No acute cardiopulmonary process.
--- NOTE | 2019-06-26 15:20 | XR ---
EXAMINATION TYPE: XR abdomen 1V DATE OF EXAM: 06/26/2019 2:43 PM CLINICAL HISTORY: Syncope and dizziness TECHNIQUE: Single supine KUB image of the abdomen is obtained. COMPARISON: None. FINDINGS: Scattered gas is seen in non-distended small bowel loops. Gas and fecal material is seen in non-distended colon. No abnormal intraabdominal calcifications. IMPRESSION: Overall nonobstructive bowel gas pattern.
[2019-06-26] MEDS ORDERED: GENTAMICIN PER PHARMACY MISCELLANE PRN (15:35)
[2019-06-26] MEDS ORDERED: NALOXONE 0.4 MG/ML 1 ML VIAL IV PRN (15:35)
[2019-06-26] MEDS ORDERED: NITROFURANTOIN MONOHYD/M-CRYST 100 MG CAP PO STA (15:35)
[2019-06-26] MEDS ORDERED: GENTAMICIN 100 MG in SODIUM CHLORIDE 0.9% 100 ML IVPB ONE (16:00)
[2019-06-26] MEDS ORDERED: ACETAMINOPHEN TAB 325 MG TAB PO STA (16:13)
[2019-06-26] MEDS: SODIUM CHLORIDE 0.9% 1,000 ML IV SCH (16:14)
[2019-06-26] MEDS ORDERED: SENNOSIDES-DOCUSATE SODIUM 1 EACH TAB PO PRN (17:08)
[2019-06-26] MEDS: WARFARIN 1.25 MG TAB PO SCH (20:27)
[2019-06-26] MEDS: BISACODYL 5 MG TABLET.DR PO SCH (20:27)
[2019-06-26] MEDS: CARBIDOPA-LEVODOPA ER 25-100MG 1 EACH TABLET.ER PO SCH ×2 (20:28→23:50)
[2019-06-26] MEDS: Mirabegron [Myrbetriq] PO SCH (20:29)
[2019-06-26] MEDS: ACETAMINOPHEN TAB 325 MG TAB PO PRN (20:31)
[2019-06-26 20:41] LABS: Glucose,Whole Blood 100 mg/dL (75-99)
[2019-06-26] MEDS ORDERED: HYDROmorphone 0.5 MG/0.5 ML SYRINGE IVP PRN (23:44)
[2019-06-26] MEDS: HYDROcodone/APAP 5-325MG 1 EACH TAB PO PRN (23:49)
[2019-06-27] MEDS ORDERED: TEMAZEPAM 15 MG CAP PO PRN (00:06)
[2019-06-27] MEDS ORDERED: ALPRAZolam 0.25 MG TAB PO PRN (00:06)
[2019-06-27] MEDS: SODIUM CHLORIDE 0.9% 1,000 ML IV SCH ×2 (02:21→15:11)
--- NOTE | 2019-06-27 03:49 | HP ---
HISTORY AND PHYSICAL DATE OF SERVICE: 06/26/2019 CHIEF COMPLAINT: Multiple chief complaints including abdominal pain, fall and as well as left ankle pain. HISTORY OF PRESENT ILLNESS: This 79-year-old woman with a past medical history of multiple medical problems including history of asthma, CHF, CVA, TIA, DVT, GERD, hypertension, memory impairment, history of DJD, ulcerative colitis, Parkinson disease, being followed by Dr. Benitez in the outpatient setting, complaining of lower abdominal pain. The patient has recurrent urinary tract infections. The patient was found to have UTI. Patient also had a feeling of tiredness and weakness and presyncopal event. The patient also complaining of left ankle pain. The patient also has Parkinson's, some gait difficulties also originally. Because of multiple other symptomatology, patient came to [facility] and admitted for further evaluation and treatment. The UA showed evidence of UTI. Creatinine is 1.20. Patient had some evaluations also in the ER. There is no history of fever, rigors or chills. No history of headache, loss of consciousness or seizures at this time. PAST MEDICAL HISTORY: History of asthma, CHF, CVA, TIA, DVT, GERD, hypertension, memory impairment, neurology disorder, ulcerative colitis and Parkinson's. MEDICATIONS: Home medications, prior to admission include: 1. Carbidopa levodopa 1 tab q.4. 2. Norvasc 5 mg p.o. daily. 3. Coumadin 1.5 mg Friday, Friday, Friday, , Friday, Friday. 4. Aldactone 25 mg p.o. daily. 5. Senokot 1 tab p.r.n. 6. Prilosec 20 mg p.o. b.i.d. 7. Myrbetriq 25 mg q.h.s. 8. Zestoretic /12.5 mg p.o. daily. 9. Vitamin D3 2000 daily. 10.Dulcolax 5 mg p.o. b.i.d. 11.Tylenol 500 mg t.i.d. p.r.n. ALLERGIES: INFLUENZA VACCINE, IODINATED CONTRAST DYE, PENICILLIN. FAMILY HISTORY: History of asthma, cancer, COPD, gallbladder cancer. SOCIAL HISTORY: No history of smoking. No history of alcohol intake. REVIEW OF SYSTEMS: ENT: No diminished vision. No diminished hearing. CARDIOVASCULAR: No angina or palpitations. RESPIRATION as mentioned earlier. GI as mentioned earlier. as mentioned earlier. CENTRAL NERVOUS SYSTEM: As mentioned earlier. ALLERGY/IMMUNOLOGY: No asthma or hayfever. MUSCULOSKELETAL as mentioned earlier. HEMATOLOGY/ONCOLOGY: No history of anemia. ENDOCRINE: No history of diabetes or hypothyroidism. CONSTITUTIONAL: As mentioned earlier. DERMATOLOGY: Negative. RHEUMATOLOGY negative. PSYCHIATRY as mentioned earlier. PHYSICAL EXAMINATION: The patient is alert and oriented times three. Pulse 72, blood pressure 140/70, respiration 16, temperature 98 degrees, pulse ox 94% on room air. HEENT is conjunctivae normal. NECK: No jugular venous distention. CARDIOVASCULAR: S1, S2 muffled. RESPIRATORY SYSTEM: Breath sounds diminished at the bases. A few scattered rhonchi and crackles. ABDOMEN: Soft, mild diffuse tenderness in the lower part of the abdomen. No guarding. No rigidity. No mass palpable. Bowel sounds present. No ascites. LEGS: Bilateral leg swelling and significant pain and movement, pain on movement of the left ankle also present. NERVOUS SYSTEM: Higher functions as mentioned earlier. Moves all 4 limbs. Tone is increased. Diffuse tremors. History of Parkinson's. LYMPHATICS: No lymph nodes palpable in the neck, axillae or groin. JOINTS: As mentioned earlier. SKIN: No ulcer, rash or bleeding. LABS: WBC 6.2, hemoglobin 12.3, INR 1.2, sodium 136, creatinine is 1.2. UA noted. Other labs are noted. ASSESSMENT: 1. Acute urinary tract infection with dehydration, present on admission. 2. Fall and left ankle pain for evaluation. 3. Gait dysfunction. 4. Parkinson's. 5. Increased creatinine with possibly mild acute renal failure, prerenal, acute tubular necrosis. 6. History of asthma. 7. History of congestive heart failure, ejection fraction unknown. 8. History of cerebrovascular accident, transient ischemic attack. 9. Deep vein thrombosis. 10.Gastroesophageal reflux disease. 11.Hypertension. 12.History of memory impairment. 13.History of degenerative joint disease. 14.History of ulcerative colitis. 15.History of Parkinson's. 16.History of several deep vein thrombosis both legs. 17.History of thrombophlebitis. 18.History of pulmonary embolus. 19.History ESBL E coli. 20.History of appendectomy. 21.History of cholecystectomy. 22.History of anxiety. 23.Obesity with body mass of 33.3. 24.FULL CODE with instructions. RECOMMENDATIONS AND DISCUSSION: In this 79-year-old woman who presented with multiple complex medical issues, at this time, I recommend to continue the current medication, continue symptomatic treatment. Otherwise, I would recommend broad-spectrum IV antibiotics. Obtain cultures. Other than that, I would also recommend infectious disease evaluation. CT scan of the abdomen and pelvis also will be requested. Otherwise, other than that, full x-rays of the left ankle also will be ordered and if the patient does not get relief Ortho on- call may be consulted. Repeat labs will be ordered. Overall prognosis guarded because of multiple complex medical issues. Discussed with the patient who understands a agrees. Further recommendations to follow. A copy of this dictation being forwarded to Dr. Benitez who is the primary physician. See orders for further details. MMPHYLICIAL / IJN: [id number] /
[2019-06-27] MEDS ORDERED: GENTAMICIN IN NACL ISO-OSM PMX 80 MG in SALINE 1 100ML.BAG IVPB SCH (05:00)
[2019-06-27 07:02] LABS: Basophils % (A) 1 %; Eosinophils # (A) 0.1 k/uL (0-0.7); Eosinophils % (A) 2 %; HCT 33.9 % (34.0-46.0); HGB 11.9 gm/dL (11.4-16.0); Lymphocytes % (A) 30 %; MCH 32.4 pg (25.0-35.0); MCV 92.4 fL (80.0-100.0); Mean Platelet Volume 6.5; Monocytes # (A) 0.3 k/uL (0-1.0); Monocytes % (A) 5 %; Neutrophils % (A) 61 %; Platelet Count 247 k/uL (150-450); RBC 3.67 m/uL (3.80-5.40); RDW 12.6 % (11.5-15.5); WBC 6.6 k/uL (3.8-10.6)
[2019-06-27 07:06] LABS: INR 1.4 (<1.2); Prothrombin Time 14.3 sec (9.0-12.0)
[2019-06-27 07:13] LABS: African American GFR (CKD) 81 (>60 ml/min/1.73 sqM); Anion Gap 8 mmol/L; Blood Urea Nitrogen 20 mg/dL (7-17); Calcium 8.7 mg/dL (8.4-10.2); Carbon Dioxide 26 mmol/L (22-30); Chloride 106 mmol/L (98-107); Glucose 87 mg/dL (74-99); Non-African American GFR(CKD) 71 (>60 ml/min/1.73 sqM); Potassium 3.8 mmol/L (3.5-5.1); Sodium 140 mmol/L (137-145)
--- NOTE | 2019-06-27 07:15 | XR ---
EXAMINATION TYPE: XR ankle complete LT DATE OF EXAM: 06/27/2019 COMPARISON: NONE HISTORY: 79-year-old female with fall and pain TECHNIQUE: 3 views FINDINGS: Generalized soft tissue swelling at the ankle. Vascular calcifications are demonstrated. There is a 3 mm corticated ossicle below the lateral malleolus suggesting sequela of remote injury. Underlying de generative change at the talonavicular joint with joint space narrowing, subchondral sclerosis, and m arginal spurring. Small delineation to the Achilles tendon. Talar dome is intact. Ankle mortise appea rs congruent. IMPRESSION: Generalized soft tissue swelling at the ankle. Underlying talonavicular joint osteoarthrosis. 3 mm co rticated density below the lateral malleolus suggests sequela of remote injury. No acute osseous abno rmality seen.
[2019-06-27] MEDS: PANTOPRAZOLE 40 MG TABLET PO SCH (07:23)
[2019-06-27] MEDS: amLODIPine 5 MG TAB PO SCH (07:24)
[2019-06-27] MEDS: CHOLECALCIFEROL 1,000 UNIT TAB PO SCH (07:24)
[2019-06-27] MEDS: CARBIDOPA-LEVODOPA ER 25-100MG 1 EACH TABLET.ER PO SCH ×5 (07:24→23:12)
[2019-06-27] MEDS: SPIRONOLACTONE 25 MG TAB PO SCH (07:24)
[2019-06-27] MEDS: LISINOPRIL-HCTZ 10-12.5 MG 1 EACH TAB PO SCH (07:25)
[2019-06-27] MEDS: BISACODYL 5 MG TABLET.DR PO SCH ×2 (07:25→20:04)
[2019-06-27] MEDS: BARIUM SULFATE 450 ML ORAL.SUSP BOTTLE PO PRN ×2 (08:39→11:39)
[2019-06-27 08:49] LABS: C Reactive Protein <5.0 mg/L (<10.0)
[2019-06-27 08:58] LABS: Erythrocyte Sedimentation Rate 11 mm/hr (0-20)
[2019-06-27] MEDS ORDERED: NITROFURANTOIN MONOHYD/M-CRYST 100 MG CAP PO SCH (09:00)
[2019-06-27 10:59] LABS: Glucose,Whole Blood 89 mg/dL (75-99)
--- NOTE | 2019-06-27 13:19 | CT ---
EXAMINATION TYPE: CT abdomen pelvis wo con DATE OF EXAM: 06/27/2019 COMPARISON: None HISTORY: 79-year-old female with UTI and Left sided pain. CT DLP: 774.1 mGycm. Automated exposure control for dose reduction was used. TECHNIQUE: Contiguous axial scanning of the abdomen and pelvis without IV contrast. Coronal and sagit david reconstructions performed. FINDINGS: Heart normal size. Small anterior basilar pericardial effusion. Prominent dependent atelectasis at th e lung bases. Small hiatal hernia. A 1.2 cm hypodensity left hepatic dome likely represents a cyst. Otherwise, noncontrast appearance of the liver, right adrenal gland, spleen with anterior inferior splenule, and atrophic pancreas with n o gross abnormality. Gallbladder is not visualized, likely surgically absent. 1.4 cm exophytic hypodensity lateral mid to lower pole right kidney likely cortical cyst. Cortical-based density lesion measuring 1.1 cm posterior mid to lower pole left kidney could represen t an area of cortical scarring or small AML. No nephrolithiasis or hydronephrosis. Extrarenal pelvis on the right. No dilated small bowel, free fluid, or free air. No mesenteric or retroperitoneal lymphadenopathy. Scattered mild stool. Oral contrast has progressed to the splenic flexure. Mildly redundant sigmoid c olon. No pericolonic inflammatory change. Bladder is urine distended. Uterus surgically absent. Neither ovary clearly identified. No abnormal f luid collection in the pelvis or pelvic lymphadenopathy. Bones: Degenerative disc disease L4-L5 and L5-S1. Facet arthropathy mid to lower lumbar spine. IMPRESSION: 1. No acute inflammatory process identified in the abdomen or pelvis to explain the patient's sympto ms. 2. No nephrolithiasis or hydronephrosis. 3. A 1.1 cm cortical fat density lesion within the posterior left kidney could represent an area of cortical scarring or a benign AML. 4. Small hiatal hernia.
[2019-06-27] MEDS ORDERED: KETOROLAC 30 MG/ML 1 ML VIAL IVP STA (14:44)
[2019-06-27] MEDS: ERTAPENEM 1 GM in SODIUM CHLORIDE 0.9% 50 ML IVPB SCH (15:04)
[2019-06-27] MEDS: ONDANSETRON 4 MG/2 ML VIAL IVP PRN (15:05)
--- NOTE | 2019-06-27 15:34 | PN ---
PROGRESS NOTE DATE OF SERVICE: 06/27/2019 This 79-year-old woman is admitted with multiple medical problems, acute urinary tract infection with abdominal pain also had a history of fall and left ankle pain also. The ankle x-ray showed no evidence of fracture, evidence of degenerative joint disease. Orthopedic evaluation has been sought at this time. The patient also recommend a CT scan of the abdomen and pelvis also. Patient being closely monitored. The patient started on empiric antibiotics. The patient had previous history of ESBL E coli. PAST MEDICAL HISTORY: Reviewed. REVIEW OF SYSTEMS: CARDIOVASCULAR system: No angina or palpitations. RESPIRATIONS: As mentioned earlier. GI as mentioned earlier. : No dysuria. CENTRAL NERVOUS SYSTEM: No numbness, weakness. CURRENT MEDICATIONS: Reviewed and include: 1. Tylenol 650 q.6h p.r.n. 2. [place] 5 mg q.6h p.r.n. 3. Xanax 0.5 t.i.d. 4. Norvasc 5 mg daily. 5. Dulcolax. 6. Sinemet ER 25/100 1 p.o. q.i.d. and at 23 hours. 7. Vitamin D3 2000 daily. 8. Gentamicin. 9. Zestoretic. 10.Dilaudid. 11.Narcan. 12.Macrobid. 13.Protonix. 14.Aldactone. 15.Restoril. 16.Coumadin. PHYSICAL EXAMINATION: Patient is alert, oriented x3. Pulse 64. Blood pressure 140/69, respiration 17, temperature 98 degrees, pulse ox 92% on room air. HEENT: Conjunctivae normal. Oral mucosa moist. NECK is no jugular venous distention. No carotid bruit. No lymph node enlargement. CARDIOVASCULAR SYSTEM: S1, S2 muffled. RESPIRATIONS: Breath sounds diminished in the bases. No rhonchi. No crackles. ABDOMEN: Soft. Mild diffuse discomfort in the lower part of the legs. The left ankle is swollen and tender. Movements are painful. NERVOUS SYSTEM: Tone is increased and tremors also present suggestive of Parkinson's. LABS: WBC 6.6, hemoglobin 11.9. Cultures are pending at this time. ASSESSMENT: 1. Acute urinary tract infection with dehydration, present on admission. 2. Fall and left ankle pain for evaluation possible degenerative joint disease. 3. Gait dysfunction. 4. Parkinson's. 5. Increased creatinine with possible mild acute renal failure, prerenal, acute tubular necrosis. 6. History of asthma. 7. History of ESBL E coli. 8. History of congestive heart failure, ejection fraction unknown. 9. History of cerebrovascular accident, transient ischemic attack. 10.Deep vein thrombosis. 11.Gastroesophageal reflux disease. 12.Hypertension. 13.History of memory impairment. 14.Degenerative joint disease. 15.History of ulcerative colitis. 16.History of Parkinson's. 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 18.History of thrombophlebitis. 19.History of pulmonary embolus. 20.History of ESBL E coli. 21.History of appendectomy. 22.History of cholecystectomy. 23.History of anxiety. 24.Obesity with body mass of 33.3. 25.FULL CODE with instructions. RECOMMENDATIONS AND DISCUSSION: Recommend to continue current medications, symptomatic treatment. Otherwise, at this time, I recommend to continue with current medications. I would also recommend Infectious Disease evaluation. We will recommend continue with warfarin. INR is 1.4. I would recommend 5 mg of warfarin today and further recommendations to follow. MMODL / IJN: [id number] /
[2019-06-27] MEDS ORDERED: WARFARIN 2 MG TAB PO ONE (18:00)
[2019-06-27] MEDS ORDERED: WARFARIN 3 MG TAB PO ONE (18:00)
[2019-06-27] MEDS ORDERED: WARFARIN 5 MG TAB PO ONE (18:00)
--- NOTE | 2019-06-27 18:59 | P.CNOR ---
History of Present Illness - [facility] Consult date: 06/27/19 Consult reason: joint pain History of present illness: Patient is a pleasant 79 year old female seen at bedside in consultation for left ankle pain. She states she has had chronic left ankle pain with acute exacerbations. She denies any recent trauma and denies history of gout. SHe states it worsened more recently in the past day or two. She denies redness, fever or chills. She has no numbness or tingling. She has no other complaints currently. Review of Systems All systems: negative Constitutional: Denies chills, Denies fever Eyes: denies blurred vision, denies pain Ears, nose, mouth and throat: Denies headache, Denies sore throat Cardiovascular: Denies chest pain, Denies shortness of breath Respiratory: Denies cough Gastrointestinal: Denies abdominal pain, Denies diarrhea, Denies nausea, Denies vomiting Genitourinary: Denies dysuria, Denies hematuria Musculoskeletal: Denies myalgias Integumentary: Denies pruritus, Denies rash Neurological: Denies numbness, Denies weakness Psychiatric: Denies anxiety, Denies depression Endocrine: Denies fatigue, Denies weight change Past Medical History Past Medical History: Asthma, Heart Failure, CVA/TIA, Deep Vein Thrombosis (DVT), GERD/Reflux, Hypertension, Memory Impairment, Musculoskeletal Disorder, Neurologic Disorder, Osteoarthritis (OA) Additional Past Medical History / Comment(s): Ulcerative colitis, diverticulitis, parkinson's disease, CVA which pt was unaware of having-showed on cat scan, several DVTs bilateral legs and pt states since she has had intermittent bilateral ankle edema, thrombophlebitis, PE-pt cannot recall laterallity, generalized arthritis, urinary leakage, a few UTIs, shingles History of Any Multi-Drug Resistant Organisms: ESBL Year Discovered:: 06/07/19 ESBL E.coli MDRO Source:: Urine Past Surgical History: Appendectomy, Cholecystectomy, Hysterectomy, Orthopedic Surgery, Tubal Ligation Additional Past Surgical History / Comment(s): L shoulder injury with surgery to repair, removals of DVTs bilateral legs, cataract removal/lens implants, colonoscopies. Past Anesthesia/Blood Transfusion Reactions: Postoperative Nausea & Vomiting (PONV) Additional Past Anesthesia/Blood Transfusion Reaction / Comm: Pt received blood with hysterectomy without reaction. Past Psychological History: Anxiety Additional Psychological History / Comment(s): Pt resides with her daughter. She moved here from [place] to live with her steven 3 yrs ago. She ambulates with a walker. She no longer drives, her steven takes her to [employer]. She is otherwise independent. Retired. Nonsmoker. No experience. No animal exposures. No travel Smoking Status: Never smoker Past Alcohol Use History: None Reported Past Drug Use History: None Reported - Past Family History Father Family Medical History: Asthma, Cancer, COPD Additional Family Medical History / Comment(s): Gallbladder cancer Mother Family Medical History: Myocardial Infarction ([place]) Additional Family Medical History / Comment(s): Mother of a [place] at the age of 48 yrs. Sister(s) Additional Family Medical History / Comment(s): Sister of a blood clot at age 38 yrs-pt cannot recall specifics. Medications and Allergies Home Medications Medication Instructions Recorded Confirmed Type Carbidopa-Levodopa ER 25-100Mg 1 tab PO Q4HR 01/11/19 06/26/19 History [Sinemet CR 25-100 mg] Omeprazole [PriLOSEC] 20 mg PO BID 01/11/19 06/26/19 History Spironolactone [Aldactone] 25 mg PO DAILY tab 01/25/19 06/26/19 Rx Mirabegron [Myrbetriq] 25 mg PO HS 02/11/19 06/26/19 History Sennosides-Docusate Sodium 1 tab PO DAILY PRN 02/11/19 06/26/19 History [Senokot-S] Acetaminophen Tab [Tylenol] 500 mg PO TID PRN 02/19/19 06/26/19 History Bisacodyl [Dulcolax] 5 mg PO BID 02/19/19 06/26/19 History Cholecalciferol [Vitamin D3 (25 2,000 unit PO DAILY 02/19/19 06/26/19 History Mcg = 1000 Iu)] Lisinopril-Hctz 10-12.5 mg 1 tab PO DAILY 03/09/19 06/26/19 History [Zestoretic 10-12.5] Warfarin [Coumadin] 1.25 mg PO SUTUWETHFRSA@1500 04/07/19 06/26/19 History amLODIPine [Norvasc] 5 mg PO DAILY 06/26/19 06/26/19 History Allergies Allergy/AdvReac Type Severity Reaction Status Date / Time Influenza Virus Vaccines Allergy Swelling Verified 06/26/19 14:35 Iodinated Contrast Media Allergy Chest Pain Verified 06/26/19 14:35 [Iodinated Contrast- Oral and IV Dye] Penicillins Allergy Anaphylaxis Verified 06/26/19 14:35 Physical Examination Inspection of left ankle is benign. There is no deformity, erythema or echymosis. There is mild tenderness at the lateral ligaments/tendons to palpation. There is no lateral or medial malleolus tenderness. It is not hot to touch. No significant effusion. The ankle is ligamentously stable. Neurovascular status is intact with motor and sensation. 2+ DP pulse and less than 2 sec cap refill present. Calf is SNT Results XRays of left ankle show no fracture dislocation. There is suspicious osteophyte at lateral aspect that could represent remote injury/avulsion or chip fracture. There are degenerative changes of the foot/ankle. - Labs Labs: Abnormal Lab Results - Last 24 Hours (Table) 06/26/19 06/27/19 06/27/19 Range/Units 20:40 06:46 06:46 RBC 3.67 L (3.80-5.40) m/uL Hct 33.9 L (34.0-46.0) % PT (9.0-12.0) sec INR (<1.2) BUN 20 H (7-17) mg/dL POC Glucose (mg/dL) 100 H (75-99) mg/dL 06/27/19 Range/Units 06:46 RBC (3.80-5.40) m/uL Hct (34.0-46.0) % PT 14.3 H (9.0-12.0) sec INR 1.4 H (<1.2) BUN (7-17) mg/dL POC Glucose (mg/dL) (75-99) mg/dL Microbiology - Last 24 Hours (Table) 06/26/19 14:05 Urine Culture - Preliminary Urine,Voided H & H 06/26/19 06/27/19 Range/Units 13:55 06:46 Hgb 12.3 11.9 (11.4-16.0) gm/dL Hct 35.3 33.9 L (34.0-46.0) % Coagulation 06/26/19 06/27/19 Range/Units 13:55 06:46 INR 1.3 H 1.4 H (<1.2) Result Diagrams: 06/27/19 06:46 06/27/19 06:46 - Diagnostic results Ankle/Foot x-ray: report reviewed, image reviewed Assessment and Plan (1) Ankle pain, left Narrative/Plan: There does not appear to be an acute fracture or injury requiring immediate surgical intervention. Recommend conservative measures including rest, immobilization prn with walking boot, NSAIDs and pain management per primary team, ice and elevation. She may follow up as an outpatient for further evaluation and recommendations. Thank you Current Visit: Yes Status: Acute Priority: Medium Code(s): M25.572 - PAIN IN LEFT ANKLE AND JOINTS OF LEFT FOOT SNOMED Code(s): 600613309 Time with Patient: Less than 30
[2019-06-27] MEDS: Mirabegron [Myrbetriq] PO SCH (20:18)
[2019-06-27 20:47] LABS: Glucose,Whole Blood 96 mg/dL (75-99)
[2019-06-27] MEDS: HYDROcodone/APAP 5-325MG 1 EACH TAB PO PRN (22:01)
--- NOTE | 2019-06-27 23:28 | P.CONS ---
History of Present Illness - Reason for Consult Consult date: 06/27/19 Urinary tract infection Requesting physician: Sandro Higuera - Chief Complaint WeaknessAbdominal pain and dark urine x 1 day - History of Present Illness Patient is a 79 year female with a past medical history significant for recurrent urinary tract infection and recent history of ESBL E. coli UTI that was treated with a two-week course of IV Invanz patient is now presenting back to [facility] ER with a chief complaint of feeling weak and lightheaded but no history of any syncope or falls the patient is also complaining of her lower abdominal crampy pain with intensity of 45-10 and no radiation patient also complaining of diarrhea for the last few days with about 3-4 loose stools per day no blood or mucus in the stool patient has been managed he that her urine is getting more darker and she did have some burning of urination with the symptoms the patient has been evaluated by the physician on arrival to the the patient has been afebrile patient white count was normal a she did have a positive UA having more than 1 WBC patient has been started on Rocephin she was admitted to hospital with concern for possible ESBL pathogen infectious disease has been consulted for further recommendation patient just have her CT of abdominal pelvis completed waiting for the final report Review of Systems Positive point has been mentioned in the HPI rest of the systems are negative Past Medical History Past Medical History: Asthma, Heart Failure, CVA/TIA, Deep Vein Thrombosis (DVT), GERD/Reflux, Hypertension, Memory Impairment, Musculoskeletal Disorder, Neurologic Disorder, Osteoarthritis (OA) Additional Past Medical History / Comment(s): Ulcerative colitis, diverticulitis, parkinson's disease, CVA which pt was unaware of having-showed on cat scan, several DVTs bilateral legs and pt states since she has had intermittent bilateral ankle edema, thrombophlebitis, PE-pt cannot recall laterallity, generalized arthritis, urinary leakage, a few UTIs, shingles History of Any Multi-Drug Resistant Organisms: ESBL Year Discovered:: 06/07/19 ESBL E.coli MDRO Source:: Urine Past Surgical History: Appendectomy, Cholecystectomy, Hysterectomy, Orthopedic Surgery, Tubal Ligation Additional Past Surgical History / Comment(s): L shoulder injury with surgery to repair, removals of DVTs bilateral legs, cataract removal/lens implants, colo noscopies. Past Anesthesia/Blood Transfusion Reactions: Postoperative Nausea & Vomiting (PONV) Additional Past Anesthesia/Blood Transfusion Reaction / Comm: Pt received blood with hysterectomy without reaction. Past Psychological History: Anxiety Additional Psychological History / Comment(s): Pt resides with her daughter. She moved here from [place] to live with her steven 3 yrs ago. She ambulates with a walker. She no longer drives, her steven takes her to app. She is otherwise independent. Retired. Nonsmoker. No experience. No animal exposures. No travel Smoking Status: Never smoker Past Alcohol Use History: None Reported Past Drug Use History: None Reported - Past Family History Father Family Medical History: Asthma, Cancer, COPD Additional Family Medical History / Comment(s): Gallbladder cancer Mother Family Medical History: Myocardial Infarction ([place]) Additional Family Medical History / Comment(s): Mother of a [place] at the age of 48 yrs. Sister(s) Additional Family Medical History / Comment(s): Sister of a blood clot at age 38 yrs-pt cannot recall specifics. Medications and Allergies Home Medications Medication Instructions Recorded Confirmed Type Carbidopa-Levodopa ER 25-100Mg 1 tab PO Q4HR 01/11/19 06/26/19 History [Sinemet CR 25-100 mg] Omeprazole [PriLOSEC] 20 mg PO BID 01/11/19 06/26/19 History Spironolactone [Aldactone] 25 mg PO DAILY tab 01/25/19 06/26/19 Rx Mirabegron [Myrbetriq] 25 mg PO HS 02/11/19 06/26/19 History Sennosides-Docusate Sodium 1 tab PO DAILY PRN 02/11/19 06/26/19 History [Senokot-S] Acetaminophen Tab [Tylenol] 500 mg PO TID PRN 02/19/19 06/26/19 History Bisacodyl [Dulcolax] 5 mg PO BID 02/19/19 06/26/19 History Cholecalciferol [Vitamin D3 (25 2,000 unit PO DAILY 02/19/19 06/26/19 History Mcg = 1000 Iu)] Lisinopril-Hctz 10-12.5 mg 1 tab PO DAILY 03/09/19 06/26/19 History [Zestoretic 10-12.5] Warfarin [Coumadin] 1.25 mg PO SUTUWETHFRSA@1500 04/07/19 06/26/19 History amLODIPine [Norvasc] 5 mg PO DAILY 06/26/19 06/26/19 History Allergies Allergy/AdvReac Type Severity Reaction Status Date / Time Influenza Virus Vaccines Allergy Swelling Verified 06/26/19 14:35 Iodinated Contrast Media Allergy Chest Pain Verified 06/26/19 14:35 [Iodinated Contrast- Oral and IV Dye] Penicillins Allergy Anaphylaxis Verified 06/26/19 14:35 Physical Exam Vitals: Vital Signs Temp Pulse Pulse Pulse Resp BP BP 06/27/19 07:00 98.0 F 64 17 114/69 06/27/19 01:16 98.3 F 64 18 110/63 06/26/19 18:53 98.0 F 72 15 145/71 06/26/19 17:08 98.2 F 66 16 175/76 06/26/19 15:28 71 18 140/61 06/26/19 14:08 73 70 18 97/47 BP Pulse Ox 06/27/19 07:00 92 L 06/27/19 01:16 93 L 06/26/19 18:53 94 L 06/26/19 17:08 95 06/26/19 15:28 96 06/26/19 14:08 111/46 95 Intake and Output 06/26/19 06/27/19 06/27/19 22:59 06:59 14:59 Intake Total 480 480 Output Total 292 643 4299 Balance -120 -420 -1050 Intake: Oral 480 480 Output: Urine 000 030 0687 Other: Voiding Method Diaper Diaper Incontinent Incontinent # Voids 1 1 GENERAL DESCRIPTION: An elderly female lying in bed, no distress. No tachypnea or accessory muscle of respiration use. HEENT: Shows Pallor , no scleral icterus. Oral mucous membrane is dry. No pharyngeal erythema or thrush NECK: Trachea central, no thyromegaly. LUNGS: Unlabored breathing. Clear to auscultation anteriorly. No wheeze or crackle. HEART: S1, S2, regular rate and rhythm. No loud murmur ABDOMEN: Soft, no tenderness , guarding or rigidity, no organomegaly EXTREMITIES: No edema of feet. SKIN: No rash, no masses palpable. NEUROLOGICAL: The patient is awake, alert, oriented x3, mood and affect normal. Results CBC & Chem 7: 06/27/19 06:46 06/27/19 06:46 Labs: Abnormal Lab Results - Last 24 Hours (Table) 06/26/19 06/26/19 06/26/19 Range/Units 13:55 13:55 14:05 RBC (3.80-5.40) m/uL Hct (34.0-46.0) % PT 13.3 H (9.0-12.0) sec INR 1.3 H (<1.2) Sodium 136 L (137-145) mmol/L BUN 27 H (7-17) mg/dL Creatinine 1.20 H (0.52-1.04) mg/dL Glucose 164 H (74-99) mg/dL POC Glucose (mg/dL) (75-99) mg/dL ALT 6 L (9-52) U/L Urine Appearance Turbid H (Clear) Urine Protein 1+ H (Negative) Urine Ketones Trace H (Negative) Urine Blood Small H (Negative) Ur Leukocyte Esterase Large H (Negative) Urine WBC >182 H (0-5) /hpf Urine WBC Clumps Many H (None) /hpf Urine Bacteria Few H (None) /hpf Hyaline Casts 30 H (0-2) /lpf Urine Mucus Occasional H (None) /hpf 06/26/19 06/27/19 06/27/19 Range/Units 20:40 06:46 06:46 RBC 3.67 L (3.80-5.40) m/uL Hct 33.9 L (34.0-46.0) % PT (9.0-12.0) sec INR (<1.2) Sodium (137-145) mmol/L BUN 20 H (7-17) mg/dL Creatinine (0.52-1.04) mg/dL Glucose (74-99) mg/dL POC Glucose (mg/dL) 100 H (75-99) mg/dL ALT (9-52) U/L Urine Appearance (Clear) Urine Protein (Negative) Urine Ketones (Negative) Urine Blood (Negative) Ur Leukocyte Esterase (Negative) Urine WBC (0-5) /hpf Urine WBC Clumps (None) /hpf Urine Bacteria (None) /hpf Hyaline Casts (0-2) /lpf Urine Mucus (None) /hpf 06/27/19 Range/Units 06:46 RBC (3.80-5.40) m/uL Hct (34.0-46.0) % PT 14.3 H (9.0-12.0) sec INR 1.4 H (<1.2) Sodium (137-145) mmol/L BUN (7-17) mg/dL Creatinine (0.52-1.04) mg/dL Glucose (74-99) mg/dL POC Glucose (mg/dL) (75-99) mg/dL ALT (9-52) U/L Urine Appearance (Clear) Urine Protein (Negative) Urine Ketones (Negative) Urine Blood (Negative) Ur Leukocyte Esterase (Negative) Urine WBC (0-5) /hpf Urine WBC Clumps (None) /hpf Urine Bacteria (None) /hpf Hyaline Casts (0-2) /lpf Urine Mucus (None) /hpf Microbiology - Last 24 Hours (Table) 06/26/19 14:05 Urine Culture - Preliminary Urine,Voided Assessment and Plan Assessment: 1-patient presented to hospital with lightheadedness and weakness in this patient who did have a history of recurrent urinary tract infection recently completed a course of Invanz for ESBL UTI now coming with urinary symptoms of dark urine and some burning and a positive UA likely symptomatic severe attack infection could be ESBL or different enteric pathogens with urine cultures are currently pending 2-patient with abdominal pain and diarrhea need to rule out C. diff colitis await CT of abdominal pelvis report to be completed (1) Diarrhea Current Visit: Yes Status: Acute Code(s): R19.7 - DIARRHEA, UNSPECIFIED SNOMED Code(s): 33465040 (2) Urinary tract infection Current Visit: Yes Status: Acute Code(s): N39.0 - URINARY TRACT INFECTION, SITE NOT SPECIFIED SNOMED Code(s): 20787090 Plan: 1-discontinue the Rocephin 2-check stool for C. diff 3-start the patient on Invanz 1 g daily We will follow on clinical condition and cultures to further adjust medication if needed Thank you for this consultation will follow this patient with you Time with Patient: Greater than 30
[2019-06-28] MEDS: SODIUM CHLORIDE 0.9% 1,000 ML IV SCH ×3 (03:13→22:43)
[2019-06-28] MEDS ORDERED: GENTAMICIN TROUGH DUE 1 EACH MISC MISCELLANE ONE (04:30)
[2019-06-28] MEDS: HYDROcodone/APAP 5-325MG 1 EACH TAB PO PRN ×2 (04:49→22:39)
[2019-06-28] MEDS ORDERED: GENTAMICIN PEAK DUE 1 EACH MISC MISCELLANE ONE (06:30)
[2019-06-28 07:12] LABS: Glucose,Whole Blood 82 mg/dL (75-99)
[2019-06-28 07:38] LABS: Basophils # (A) 0.1 k/uL (0-0.2); Basophils % (A) 1 %; Eosinophils # (A) 0.2 k/uL (0-0.7); Eosinophils % (A) 3 %; HCT 34.1 % (34.0-46.0); HGB 11.8 gm/dL (11.4-16.0); Lymphocytes # (A) 1.1 k/uL (1.0-4.8); Lymphocytes % (A) 18 %; MCH 32.6 pg (25.0-35.0); MCHC 34.7 g/dL (31.0-37.0); MCV 93.8 fL (80.0-100.0); Mean Platelet Volume 6.9; Monocytes # (A) 0.3 k/uL (0-1.0); Monocytes % (A) 5 %; Neutrophils # (A) 4.2 k/uL (1.3-7.7); Neutrophils % (A) 71 %; Platelet Count 228 k/uL (150-450); RBC 3.64 m/uL (3.80-5.40); RDW 12.8 % (11.5-15.5); WBC 5.9 k/uL (3.8-10.6)
[2019-06-28 07:47] LABS: INR 1.7 (<1.2); Prothrombin Time 16.8 sec (9.0-12.0)
[2019-06-28 07:49] LABS: Calcium 8.3 mg/dL (8.4-10.2); Potassium 4.3 mmol/L (3.5-5.1)
[2019-06-28] MEDS: BISACODYL 5 MG TABLET.DR PO SCH ×2 (08:35→20:14)
[2019-06-28] MEDS: CHOLECALCIFEROL 1,000 UNIT TAB PO SCH (08:35)
[2019-06-28] MEDS: amLODIPine 5 MG TAB PO SCH (08:35)
[2019-06-28] MEDS: ERTAPENEM 1 GM in SODIUM CHLORIDE 0.9% 50 ML IVPB SCH (08:35)
[2019-06-28] MEDS: SPIRONOLACTONE 25 MG TAB PO SCH (08:35)
[2019-06-28] MEDS: PANTOPRAZOLE 40 MG TABLET PO SCH (08:35)
[2019-06-28] MEDS: LISINOPRIL-HCTZ 10-12.5 MG 1 EACH TAB PO SCH (08:36)
[2019-06-28] MEDS: CARBIDOPA-LEVODOPA ER 25-100MG 1 EACH TABLET.ER PO SCH ×5 (08:36→22:38)
[2019-06-28 12:30] LABS: Glucose,Whole Blood 87 mg/dL (75-99)
--- NOTE | 2019-06-28 13:44 | P.PN ---
Subjective Progress Note Date: 06/28/19 Principal diagnosis: Left ankle pain Patient is a pleasant 79 year old female seen at bedside this morning. We have seen her for consultation for left ankle pain. She states she has had chronic left ankle pain with acute exacerbations. She denies any recent trauma and denies history of gout. I ordered a walking boot. She does not desire to wear it. She denies redness, fever or chills. She has no numbness or tingling. Her pain is currently controlled. She has no other complaints currently. Objective - Vital Signs Vital signs: Vital Signs Temp 97.8 F 06/28/19 07:00 Pulse 65 06/28/19 07:00 Resp 17 06/28/19 07:00 BP 93/52 06/28/19 07:00 Pulse Ox 95 06/28/19 07:00 Intake & Output 06/27/19 06/28/19 06/28/19 18:59 06:59 18:59 Intake Total 480 960 Output Total 1500 200 Balance -1500 280 960 Intake: Oral 480 960 Output: Urine 1500 200 Other: Voiding Method Diaper Diaper Incontinent Incontinent # Voids 1 3 - Exam Ankle is benign to inspection. No deformity. No erythema, echymosis or effusion. Ligamentously stable. Mild tenderness at lateral ligaments of ankle. No malleolus tenderness. No calf tenderness. NVI, 2+ DP pulse and less than sec cap refill present. - Constitutional General appearance: Present: no acute distress - Labs CBC & Chem 7: 06/28/19 07:16 06/28/19 07:16 Labs: Abnormal Lab Results - Last 24 Hours (Table) 06/28/19 06/28/19 06/28/19 Range/Units 07:16 07:16 07:16 RBC 3.64 L (3.80-5.40) m/uL PT 16.8 H (9.0-12.0) sec INR 1.7 H (<1.2) Chloride 108 H (98-107) mmol/L BUN 21 H (7-17) mg/dL Calcium 8.3 L (8.4-10.2) mg/dL Microbiology - Last 24 Hours (Table) 06/27/19 00:56 Blood Culture - Preliminary Blood No Growth after 24 hours 06/26/19 14:05 Urine Culture - Preliminary Urine,Voided Gram Neg Bacilli Assessment and Plan (1) Ankle pain, left Narrative/Plan: There does not appear to be an acute fracture or injury requiring immediate surgical intervention. I've recommend continued conservative measures including rest, immobilization prn with walking boot, NSAIDs and pain management per primary team, ice and elevation. She may follow up as an outpatient for further evaluation and recommendations. Will sign off for now. Thank you Current Visit: Yes Status: Acute Priority: Medium Code(s): M25.572 - PAIN IN LEFT ANKLE AND JOINTS OF LEFT FOOT SNOMED Code(s): 947069430 Time with Patient: Less than 30
--- NOTE | 2019-06-28 16:09 | P.PN ---
Subjective Progress Note Date: 06/28/19 Principal diagnosis: This is a 79-year-old female who was recently admitted for an acute urinary tract infection along with abdominal pain and is being closely monitored. Patient does have a history of falling and having left ankle pain and orthopedics was consulted. Infectious disease is following. Patient underwent an abdomen CT yesterday showing no acute inflammatory process identified in the abdomen or pelvis, no nephrolithiasis or hydronephrosis, small hiatal hernia, an d a 1 x 1 cm cortical fat density lesion within the posterior left kidney. Patient is currently on IV antibiotics in the form of Invanz and will continue at this time. Urine cultures thus far showing gram-negative bacilli and will await culture finalization. Will continue to monitor closely. Objective - Vital Signs Vital signs: Vital Signs Temp 97.6 F 06/28/19 15:00 Pulse 64 06/28/19 15:00 Resp 16 06/28/19 15:00 BP 92/52 06/28/19 15:00 Pulse Ox 90 L 06/28/19 15:00 Intake & Output 06/27/19 06/28/19 06/28/19 18:59 06:59 18:59 Intake Total 480 960 Output Total 1500 200 Balance -1500 280 960 Intake: Oral 480 960 Output: Urine 1500 200 Other: Voiding Method Diaper Diaper Incontinent Incontinent # Voids 1 3 - Exam Gen: This is a 79-year-old female sitting up in the chair with legs elevated in no acute distress. Temp is 97.8F, pulse is 65, respirations are 17, blood pressure 93/52, oxygen saturation is 95% on room air. HEENT: Head is atraumatic, normocephalic. Pupils equal, round. Sclerae is anicteric. NECK: Supple. No JVD. No lymphadenopathy. No thyromegaly. LUNGS: Breath sounds diminished at the bases otherwise no wheezes or rhonchi noted. No intercostal retractions. HEART: S1, S2 are muffled ABDOMEN: Soft. Bowel sounds are present. No masses. Mild tenderness noted on palpation. EXTREMITIES: No pedal edema. No calf tenderness. Left ankle discomfort with palpation along with some swelling noted. Bilateral legs are elevated on a chair. NEUROLOGICAL: Patient is awake, alert and oriented x3. Cranial nerves 2 through 12 are grossly intact. - Labs CBC & Chem 7: 06/28/19 07:16 06/28/19 07:16 Labs: Abnormal Lab Results - Last 24 Hours (Table) 06/28/19 06/28/19 06/28/19 Range/Units 07:16 07:16 07:16 RBC 3.64 L (3.80-5.40) m/uL PT 16.8 H (9.0-12.0) sec INR 1.7 H (<1.2) Chloride 108 H (98-107) mmol/L BUN 21 H (7-17) mg/dL Calcium 8.3 L (8.4-10.2) mg/dL Microbiology - Last 24 Hours (Table) 06/27/19 00:56 Blood Culture - Preliminary Blood No Growth after 24 hours 06/26/19 14:05 Urine Culture - Preliminary Urine,Voided Gram Neg Bacilli Assessment and Plan Assessment: Acute urinary tract infection with dehydration, present on admission Fall and left ankle pain for evaluation, possible degenerative joint disease Gait dysfunction Parkinson's Increased creatinine with possible mild acute renal failure, prerenal, acute tubular necrosis History of asthma History of ESBL E. coli History of congestive heart failure, ejection fraction unknown History of CVA/TIA Deep vein thrombosis Gastroesophageal reflux disease Hypertension History of memory impairment Degenerative joint disease History of ulcerative colitis History of Parkinson's History of several deep vein thromboses of both legs History of thrombophlebitis History of pulmonary embolus History of ESBL E. coli History of appendectomy History of cholecystectomy History of anxiety Obesity with body mass index of 33.3 Full code with instructions The discussion: Recommend continue current medications, management, and symptomatic treatment. Infectious disease and orthopedic are following. Patient will continue on IV antibiotics in the form of Invanz at this time. Preliminary urine cultures thus far show gram-negative bacilli. Will await for culture finalization. Orthopedic is recommending follow-up in the outpatient setting upon discharge and no surgical intervention at this time for the left ankle. Patient will continue with elevation of the bilateral lower extremities along with ice and pain medication for pain management. Patient is currently on Coumadin and monitoring her INRs for therapeutic between 2 and 3. Today's INR is 1.7. Discussed with the patient about possible discharge plans and patient states that she will be needing an [facility] or [facility] for physical therapy for strength and mobility along with possible IV antibiotics upon discharge. Due to multiple complex medical issues prognosis is guarded. Further recommendations to follow.
[2019-06-28 16:55] LABS: Glucose,Whole Blood 104 mg/dL (75-99)
[2019-06-28] MEDS ORDERED: WARFARIN 2 MG TAB PO ONE (18:00)
[2019-06-28 19:48] LABS: Glucose,Whole Blood 127 mg/dL (75-99)
[2019-06-28] MEDS: Mirabegron [Myrbetriq] PO SCH (20:14)
[2019-06-28] MEDS: ONDANSETRON 4 MG/2 ML VIAL IVP PRN (22:39)
--- NOTE | 2019-06-28 22:55 | P.PN ---
Subjective Progress Note Date: 06/28/19 Patient is a 79 year female with a past medical history significant for recurrent urinary tract infection and recent history of ESBL E. coli UTI that was treated with a two-week course of IV Invanz patient is now presenting back to [facility] ER with a chief complaint of feeling weak and lightheaded but no history of any syncope or falls the patient is also complaining of her lower abdominal crampy pain with intensity of 45-10 and no radiation patient also complaining of diarrhea for the last few days with about 3-4 loose stools per day no blood or mucus in the stool patient has been managed he that her urine is getting more darker and she did have some burning of urination with the symptoms the patient has been evaluated by the physician on arrival to the the patient has been afebrile patient white count was normal a she did have a positive UA having more than 1 WBC patient has been started on Rocephin she was admitted to hospital with concern for possible ESBL pathogen in fectious disease has been consulted for further recommendation patient just have her CT of abdominal pelvis completed waiting for the final report 06/28/2019 the patient is feeling slightly better today. Fever seems to have improved. She is no longer having nausea or profound weakness. Still feels poorly felt. Objective - Vital Signs Vital signs: Vital Signs Temp 97.9 F 06/28/19 19:00 Pulse 67 06/28/19 19:00 Resp 18 06/28/19 19:00 BP 108/75 06/28/19 19:00 Pulse Ox 92 L 06/28/19 19:00 Intake & Output 06/28/19 06/28/19 06/29/19 06:59 18:59 06:59 Intake Total 480 960 Output Total 200 700 Balance 280 960 -700 Intake: Oral 480 960 Output: Urine 200 700 Other: Voiding Method Diaper Diaper Incontinent Incontinent # Voids 1 3 - Exam Elderly 79-year-old woman seems somewhat uncomfortable not in severe pain HEENT: Anicteric conjunctiva are pink and moist nasal mucosa grossly intact without significant lesions, there is no thrush. Neck: The neck is supple without significant lymphadenopathy or thyromegaly. Lungs: Good bilateral air entry without significant crackles or wheezing. There is no significant bronchial sounds. There is no egophony or dullness. Heart: Regular rate and rhythm with an audible S1-S2, no S3 no S4. There is no significant murmur click or rub, PMI was nondisplaced. Abdomen: Soft with improvement of the severe left lower quadrant tenderness. Extremities: The upper extremities have excellent pulses they are symmetric, no significant petechiae or telangiectasia. No splinter hemorrhages were noted. The lower extremities are free from significant edema. The peripheral pulses were 2+ and symmetric. Neuro: Awake alert oriented to person place and time. There are no acute new gross focal sensory motor deficits. - Labs CBC & Chem 7: 06/28/19 07:16 06/28/19 07:16 Labs: Abnormal Lab Results - Last 24 Hours (Table) 06/28/19 06/28/19 06/28/19 Range/Units 07:16 07:16 07:16 RBC 3.64 L (3.80-5.40) m/uL PT 16.8 H (9.0-12.0) sec INR 1.7 H (<1.2) Chloride 108 H (98-107) mmol/L BUN 21 H (7-17) mg/dL POC Glucose (mg/dL) (75-99) mg/dL Calcium 8.3 L (8.4-10.2) mg/dL 06/28/19 06/28/19 Range/Units 16:53 19:47 RBC (3.80-5.40) m/uL PT (9.0-12.0) sec INR (<1.2) Chloride (98-107) mmol/L BUN (7-17) mg/dL POC Glucose (mg/dL) 104 H 127 H (75-99) mg/dL Calcium (8.4-10.2) mg/dL Microbiology - Last 24 Hours (Table) 06/26/19 14:05 Urine Culture - Final Urine,Voided Escherichia coli 06/27/19 00:56 Blood Culture - Preliminary Blood No Growth after 24 hours Laboratory Results WBC 5.9 k/uL (3.8-10.6) 06/28/19 07:16 RBC 3.64 m/uL (3.80-5.40) L 06/28/19 07:16 Hgb 11.8 gm/dL (11.4-16.0) 06/28/19 07:16 Hct 34.1 % (34.0-46.0) 06/28/19 07:16 MCV 93.8 fL (80.0-100.0) 06/28/19 07:16 MCH 32.6 pg (25.0-35.0) 06/28/19 07:16 MCHC 34.7 g/dL (31.0-37.0) 06/28/19 07:16 RDW 12.8 % (11.5-15.5) 06/28/19 07:16 Plt Count 228 k/uL (150-450) 06/28/19 07:16 Neutrophils % 71 % 06/28/19 07:16 Lymphocytes % 18 % 06/28/19 07:16 Monocytes % 5 % 06/28/19 07:16 Eosinophils % 3 % 06/28/19 07:16 Basophils % 1 % 06/28/19 07:16 Neutrophils # 4.2 k/uL (1.3-7.7) 06/28/19 07:16 Lymphocytes # 1.1 k/uL (1.0-4.8) 06/28/19 07:16 Monocytes # 0.3 k/uL (0-1.0) 06/28/19 07:16 Eosinophils # 0.2 k/uL (0-0.7) 06/28/19 07:16 Basophils # 0.1 k/uL (0-0.2) 06/28/19 07:16 ESR 11 mm/hr (0-20) 06/27/19 06:46 PT 16.8 sec (9.0-12.0) H 06/28/19 07:16 INR 1.7 (<1.2) H 06/28/19 07:16 APTT 25.1 sec (22.0-30.0) 06/26/19 13:55 Sodium 139 mmol/L (137-145) 06/28/19 07:16 Potassium 4.3 mmol/L (3.5-5.1) 06/28/19 07:16 Chloride 108 mmol/L (98-107) H 06/28/19 07:16 Carbon Dioxide 25 mmol/L (22-30) 06/28/19 07:16 Anion Gap 6 mmol/L 06/28/19 07:16 BUN 21 mg/dL (7-17) H 06/28/19 07:16 Creatinine 0.89 mg/dL (0.52-1.04) 06/28/19 07:16 Est GFR (CKD-EPI)AfAm 71 (>60 ml/min/1.73 sqM) 06/28/19 07:16 Est GFR (CKD-EPI)NonAf 62 (>60 ml/min/1.73 sqM) 06/28/19 07:16 Glucose 82 mg/dL (74-99) 06/28/19 07:16 POC Glucose (mg/dL) 127 mg/dL (75-99) H 06/28/19 19:47 POC Glu Grade And Center Marker ID Beatrice Perez 06/28/19 19:47 Calcium 8.3 mg/dL (8.4-10.2) L 06/28/19 07:16 Magnesium 1.9 mg/dL (1.6-2.3) 06/26/19 13:55 Total Bilirubin 0.7 mg/dL (0.2-1.3) 06/26/19 13:55 AST 17 U/L (14-36) 06/26/19 13:55 ALT 6 U/L (9-52) L 06/26/19 13:55 Alkaline Phosphatase 44 U/L (38-126) 06/26/19 13:55 Troponin I <0.012 ng/mL (0.000-0.034) 06/26/19 13:55 C-Reactive Protein <5.0 mg/L (<10.0) 06/27/19 06:46 Total Protein 7.0 g/dL (6.3-8.2) 06/26/19 13:55 Albumin 4.1 g/dL (3.5-5.0) 06/26/19 13:55 Urine Color Yellow 06/26/19 14:05 Urine Appearance Turbid (Clear) H 06/26/19 14:05 Urine pH 5.5 (5.0-8.0) 06/26/19 14:05 Ur Specific [place] 1.020 (1.001-1.035) 06/26/19 14:05 Urine Protein 1+ (Negative) H 06/26/19 14:05 Urine Glucose (UA) Negative (Negative) 06/26/19 14:05 Urine Ketones Trace (Negative) H 06/26/19 14:05 Urine Blood Small (Negative) H 06/26/19 14:05 Urine Nitrite Negative (Negative) 06/26/19 14:05 Urine Bilirubin Negative (Negative) 06/26/19 14:05 Urine Urobilinogen 2.0 mg/dL (<2.0) 06/26/19 14:05 Ur Leukocyte Esterase Large (Negative) H 06/26/19 14:05 Urine WBC >182 /hpf (0-5) H 06/26/19 14:05 Urine WBC Clumps Many /hpf (None) H 06/26/19 14:05 Ur Squamous Epith Cells 2 /hpf (0-4) 06/26/19 14:05 Urine Bacteria Few /hpf (None) H 06/26/19 14:05 Hyaline Casts 30 /lpf (0-2) H 06/26/19 14:05 Urine Mucus Occasional /hpf (None) H 06/26/19 14:05 Microbiology 06/26/19 14:05 Urine,Voided Urine Culture - Final Escherichia coli 06/27/19 00:56 Blood Blood Culture - Preliminary No Growth after 24 hours Assessment and Plan (1) Acute abdominal pain Narrative/Plan: 79 old presents to hospital with the significant onset of severe left-sided lower abdominal pain so she will weakness generalized malaise nausea and some emesis some loose stool and fever. Her family brought her to hospital because of the symptoms. She did have imaging of her abdomen with a computed tomography scan that does not reveal evidence of any acute new abnormality.With current antibiotic therapy she is starting to feel somewhat better. Urinalysis is abnormal urine culture shows evidence of gram-negative bacilli. Ertapenem is being utilized with her history of the ESBL E. coli urinary infection. Culture of urine and blood will help determine the course of antibiotic therapy at the time of her discharge. She forges much more comfortable this point in time eating and drinking well but evidence of any acute colonic illness at this time. She was concerned because of her history of diverticulitis which does not seem to be active at this time. Current Visit: Yes Status: Acute Code(s): R10.9 - UNSPECIFIED ABDOMINAL PAIN SNOMED Code(s): 455535094 (2) History of infection due to ESBL Escherichia coli Current Visit: No Status: Acute Code(s): Z86.19 - PERSONAL HISTORY OF OTHER INFECTIOUS AND PARASITIC DISEASES SNOMED Code(s): 376923565 (3) Weakness Current Visit: No Status: Acute Code(s): R53.1 - WEAKNESS SNOMED Code(s): 44516141
[2019-06-29 06:48] LABS: Glucose,Whole Blood 136 mg/dL (75-99)
[2019-06-29] MEDS: CHOLECALCIFEROL 1,000 UNIT TAB PO SCH (07:22)
[2019-06-29] MEDS: BISACODYL 5 MG TABLET.DR PO SCH ×2 (07:22→20:08)
[2019-06-29] MEDS: ERTAPENEM 1 GM in SODIUM CHLORIDE 0.9% 50 ML IVPB SCH (07:22)
[2019-06-29] MEDS: PANTOPRAZOLE 40 MG TABLET PO SCH (07:22)
[2019-06-29] MEDS: SPIRONOLACTONE 25 MG TAB PO SCH (07:22)
[2019-06-29] MEDS: amLODIPine 5 MG TAB PO SCH (07:22)
[2019-06-29] MEDS: LISINOPRIL-HCTZ 10-12.5 MG 1 EACH TAB PO SCH (07:23)
[2019-06-29] MEDS: CARBIDOPA-LEVODOPA ER 25-100MG 1 EACH TABLET.ER PO SCH ×5 (07:23→21:43)
[2019-06-29 08:04] LABS: Basophils % (A) 1 %; Eosinophils # (A) 0.3 k/uL (0-0.7); Eosinophils % (A) 4 %; HGB 11.6 gm/dL (11.4-16.0); Lymphocytes # (A) 1.3 k/uL (1.0-4.8); Lymphocytes % (A) 21 %; MCH 32.1 pg (25.0-35.0); MCHC 34.1 g/dL (31.0-37.0); MCV 94.1 fL (80.0-100.0); Mean Platelet Volume 7.1; Monocytes # (A) 0.3 k/uL (0-1.0); Monocytes % (A) 4 %; Neutrophils # (A) 4.2 k/uL (1.3-7.7); Neutrophils % (A) 69 %; Platelet Count 230 k/uL (150-450); RBC 3.61 m/uL (3.80-5.40); RDW 12.7 % (11.5-15.5); WBC 6.1 k/uL (3.8-10.6)
[2019-06-29 08:09] LABS: Prothrombin Time 19.4 sec (9.0-12.0)
[2019-06-29 08:27] LABS: Calcium 8.4 mg/dL (8.4-10.2); Potassium 4.3 mmol/L (3.5-5.1)
[2019-06-29] MEDS: HYDROcodone/APAP 5-325MG 1 EACH TAB PO PRN ×2 (08:37→20:08)
[2019-06-29] MEDS: ONDANSETRON 4 MG/2 ML VIAL IVP PRN (10:06)
--- NOTE | 2019-06-29 14:08 | CDI ---
Documentation Clarification Form Date: 06/29/2019 1:47:54 PM From: Merry Richardson RN CCDS Admit Date: 06/28/2019 11:41:00 AM Patient Name: Astrid Lackey Visit Number: [id number] Discharge Date: ATTENTION: The Clinical Documentation Specialists (CDI) and [facility] Coding Staff appreciate your assistance in clarifying documentation. Please respond to the clarification below the line at the bottom and electronically sign. The CDI & [facility] Coding staff will review the response and follow-up if needed. Please note: Queries are made part of the Legal Health Record. If you have any questions, please contact the author of this message via ITS. Dr. Sandro Higuera History of congestive heart failure, ejection fraction unknown is documented in the H & P History/Risk Factors: 79-year-old female presents to the ED with lower abdominal pain, feeling of tiredness, weakness and presyncopal event. Med History Congestive Heart Failure, HTN Clinical Indicators: VS/Pulse OX: 06/26/2019 88/50 80 97.0 18 97% ra Echocardiogram Results: 01/24/19 Moderate concentric left ventricular hypertrophy. left ventricular systolic function is normal with an EF between 55 -60% Chest X Ray:06/26 no acute cardiopulmonary process. Treatment: Norvasc; Lisinopril / HCTZ, Aldactone In your professional opinion, can you please clarify the acuity and type of CHF if known? * Chronic Diastolic Heart Failure * Chronic Systolic & Diastolic Heart Failure * Unable to Determine * Other, please specify (Last Revision: November 2017) Chronic Diastolic Heart Failure MTDD
[2019-06-29] MEDS: SODIUM CHLORIDE 0.9% 1,000 ML IV SCH (14:44)
--- NOTE | 2019-06-29 15:43 | P.PN ---
Subjective Progress Note Date: 06/29/19 Principal diagnosis: This is a 79-year-old female who was recently admitted for an acute urinary tract infection along with abdominal pain and is being closely monitored. Patient does have a history of falling and having left ankle pain and orthopedics was consulted. Infectious disease is following. Patient underwent an abdomen CT yesterday showing no acute inflammatory process identified in the abdomen or pelvis, no nephrolithiasis or hydronephrosis, small hiatal hernia, an d a 1 x 1 cm cortical fat density lesion within the posterior left kidney. Patient is currently on IV antibiotics in the form of Invanz and will continue at this time. Urine cultures thus far showing gram-negative bacilli and will await culture finalization. Will continue to monitor closely. 06/29/2019 Patient is lying in bed in no acute distress with no acute overnight issues. Patient states that she does not feel very well today and is tired. Patient states that she continues to have abdominal discomfort but has slightly improved. Blood cultures thus far have been negative and urine cultures resulted showing E. coli and patient is currently on IV antibiotics in the form of Invanz which is sensitive to this. Infectious disease is following. Patient is to receive a midline today for continued IV antibiotic therapy in the outpatient setting. Currently patient denies any chest pain, shortness of breath, or palpitations. Patient has been afebrile. Patient denies any nausea or vomiting and is tolerating diet. Will continue to monitor closely. Objective - Vital Signs Vital signs: Vital Signs Temp 97.8 F 06/29/19 15:00 Pulse 71 06/29/19 15:00 Resp 15 06/29/19 15:00 BP 124/70 06/29/19 15:00 Pulse Ox 94 L 06/29/19 15:00 Intake & Output 06/28/19 06/29/19 06/29/19 18:59 06:59 18:59 Intake Total 960 Output Total 700 1000 Balance 960 -700 -1000 Intake: Oral 960 Output: Urine 700 1000 Other: Voiding Method Diaper Diaper Incontinent Incontinent # Voids 3 - Exam Gen: This is a 79-year-old female sitting up in the bed with legs elevated in no acute distress. Temp is 98.2 F, pulse is 66, respirations are 15, blood pressure 120/68, oxygen saturation is 91% on room air. HEENT: Head is atraumatic, normocephalic. Pupils equal, round. Sclerae is anicteric. NECK: Supple. No JVD. No lymphadenopathy. No thyromegaly. LUNGS: Breath sounds diminished at the bases otherwise no wheezes or rhonchi no zulma. No intercostal retractions. HEART: S1, S2 are muffled ABDOMEN: Soft. Bowel sounds are present. No masses. Mild tenderness noted on palpation. EXTREMITIES: No pedal edema. No calf tenderness. Left ankle discomfort with palpation along with some swelling noted. Bilateral legs are elevated in bed on some pillows NEUROLOGICAL: Patient is awake, alert and oriented x3. Cranial nerves 2 through 12 are grossly intact. - Labs CBC & Chem 7: 06/29/19 07:34 06/29/19 07:34 Labs: Abnormal Lab Results - Last 24 Hours (Table) 06/28/19 06/28/19 06/29/19 Range/Units 16:53 19:47 06:40 RBC (3.80-5.40) m/uL PT (9.0-12.0) sec INR (<1.2) Chloride (98-107) mmol/L BUN (7-17) mg/dL Glucose (74-99) mg/dL POC Glucose (mg/dL) 104 H 127 H 136 H (75-99) mg/dL 06/29/19 06/29/19 06/29/19 Range/Units 07:34 07:34 07:34 RBC 3.61 L (3.80-5.40) m/uL PT 19.4 H (9.0-12.0) sec INR 2.0 H (<1.2) Chloride 108 H (98-107) mmol/L BUN 19 H (7-17) mg/dL Glucose 112 H (74-99) mg/dL POC Glucose (mg/dL) (75-99) mg/dL Microbiology - Last 24 Hours (Table) 06/26/19 14:05 Urine Culture - Final Urine,Voided Escherichia coli 06/27/19 00:56 Blood Culture - Preliminary Blood No Growth after 48 hours Assessment and Plan Assessment: Acute urinary tract infection with dehydration, present on admission Fall and left ankle pain for evaluation, possible degenerative joint disease Gait dysfunction Parkinson's Increased creatinine with possible mild acute renal failure, prerenal, acute tubular necrosis History of asthma History of ESBL E. coli History of chronic diastolic congestive heart failure, recent echo done in January 2019 shows left ventricular systolic function is normal with an EF between 55 and 60% History of CVA/TIA Deep vein thrombosis Gastroesophageal reflux disease Hypertension History of memory impairment Degenerative joint disease History of ulcerative colitis History of Parkinson's History of several deep vein thromboses of both legs History of thrombophlebitis History of pulmonary embolus History of ESBL E. coli History of appendectomy History of cholecystectomy History of anxiety Obesity with body mass index of 33.3 Full code with instructions Recommendations and discussion: Recommend continue current medications, management, and symptomatic treatment. Infectious disease and orthopedic are following. Patient will continue on IV antibiotics in the form of Invanz at this time. Patient received a midline today as patient will need IV antibiotic therapy in the outpatient setting. urine cultures have finalized showing E. coli. Patient will continue with elevation of the bilateral lower extremities along with ice and pain medication for pain management. Patient is currently on Coumadin and monitoring her INRs for therapeutic between 2 and 3. Today's INR is 2.0. Discussed with the patient about discharge plans and patient states that she would like to go to [facility] for physical therapy for strength and mobility along with possible IV antibiotics upon discharge. Case management and social work are following. Due to multiple complex medical issues prognosis is guarded. Further recommendations to follow. Possible discharge in 24-48 hours.
[2019-06-29] MEDS: WARFARIN 1.25 MG TAB PO SCH (16:14)
[2019-06-29] MEDS: Mirabegron [Myrbetriq] PO SCH (20:09)
--- NOTE | 2019-06-29 21:07 | P.PN ---
Subjective Progress Note Date: 06/29/19 Patient is a 79 year female with a past medical history significant for recurrent urinary tract infection and recent history of ESBL E. coli UTI that was treated with a two-week course of IV Invanz patient is now presenting back to [facility] ER with a chief complaint of feeling weak and lightheaded but no history of any syncope or falls the patient is also complaining of her lower abdominal crampy pain with intensity of 45-10 and no radiation patient also complaining of diarrhea for the last few days with about 3-4 loose stools per day no blood or mucus in the stool patient has been managed he that her urine is getting more darker and she did have some burning of urination with the symptoms the patient has been evaluated by the physician on arrival to the the patient has been afebrile patient white count was normal a she did have a positive UA having more than 1 WBC patient has been started on Rocephin she was admitted to hospital with concern for possible ESBL pathogen in fectious disease has been consulted for further recommendation patient just have her CT of abdominal pelvis completed waiting for the final report 06/28/2019 the patient is feeling slightly better today. Fever seems to have improved. She is no longer having nausea or profound weakness. Still feels poorly felt. 06/29/2019 the patient is feeling slightly better today. Seems to responding well to current antibiotic therapy. Understands that she will need IV antibiotic therapy and plans to go to rehab. Objective - Vital Signs Vital signs: Vital Signs Temp 97.8 F 06/29/19 15:00 Pulse 71 06/29/19 15:00 Resp 15 06/29/19 15:00 BP 124/70 06/29/19 15:00 Pulse Ox 94 L 06/29/19 15:00 Intake & Output 06/29/19 06/29/19 06/30/19 06:59 18:59 06:59 Intake Total 50 Output Total 700 1000 Balance -700 -1000 50 Intake: Oral 50 Output: Urine 700 1000 Other: Voiding Method Diaper Diaper Diaper Incontinent Incontinent Incontinent # Voids 1 - Exam Elderly 79-year-old woman seems somewhat uncomfortable not in severe pain HEENT: Anicteric conjunctiva are pink and moist nasal mucosa grossly intact without significant lesions, there is no thrush. Neck: The neck is supple without significant lymphadenopathy or thyromegaly. Lungs: Good bilateral air entry without significant crackles or wheezing. There is no significant bronchial sounds. There is no egophony or dullness. Heart: Regular rate and rhythm with an audible S1-S2, no S3 no S4. There is no significant murmur click or rub, PMI was nondisplaced. Abdomen: Soft with improvement of the severe left lower quadrant tenderness. Extremities: The upper extremities have excellent pulses they are symmetric, no significant petechiae or telangiectasia. No splinter hemorrhages were noted. The lower extremities are free from significant edema. The peripheral pulses we re 2+ and symmetric. Neuro: Awake alert oriented to person place and time. There are no acute new g ross focal sensory motor deficits. - Labs CBC & Chem 7: 06/29/19 07:34 06/29/19 07:34 Labs: Abnormal Lab Results - Last 24 Hours (Table) 06/29/19 06/29/19 06/29/19 Range/Units 06:40 07:34 07:34 RBC 3.61 L (3.80-5.40) m/uL PT (9.0-12.0) sec INR (<1.2) Chloride 108 H (98-107) mmol/L BUN 19 H (7-17) mg/dL Glucose 112 H (74-99) mg/dL POC Glucose (mg/dL) 136 H (75-99) mg/dL 06/29/19 Range/Units 07:34 RBC (3.80-5.40) m/uL PT 19.4 H (9.0-12.0) sec INR 2.0 H (<1.2) Chloride (98-107) mmol/L BUN (7-17) mg/dL Glucose (74-99) mg/dL POC Glucose (mg/dL) (75-99) mg/dL Microbiology - Last 24 Hours (Table) 06/26/19 14:05 Urine Culture - Final Urine,Voided Escherichia coli 06/27/19 00:56 Blood Culture - Preliminary Blood No Growth after 48 hours Laboratory Results WBC 6.1 k/uL (3.8-10.6) 06/29/19 07:34 RBC 3.61 m/uL (3.80-5.40) L 06/29/19 07:34 Hgb 11.6 gm/dL (11.4-16.0) 06/29/19 07:34 Hct 34.0 % (34.0-46.0) 06/29/19 07:34 MCV 94.1 fL (80.0-100.0) 06/29/19 07:34 MCH 32.1 pg (25.0-35.0) 06/29/19 07:34 MCHC 34.1 g/dL (31.0-37.0) 06/29/19 07:34 RDW 12.7 % (11.5-15.5) 06/29/19 07:34 Plt Count 230 k/uL (150-450) 06/29/19 07:34 Neutrophils % 69 % 06/29/19 07:34 Lymphocytes % 21 % 06/29/19 07:34 Monocytes % 4 % 06/29/19 07:34 Eosinophils % 4 % 06/29/19 07:34 Basophils % 1 % 06/29/19 07:34 Neutrophils # 4.2 k/uL (1.3-7.7) 06/29/19 07:34 Lymphocytes # 1.3 k/uL (1.0-4.8) 06/29/19 07:34 Monocytes # 0.3 k/uL (0-1.0) 06/29/19 07:34 Eosinophils # 0.3 k/uL (0-0.7) 06/29/19 07:34 Basophils # 0.0 k/uL (0-0.2) 06/29/19 07:34 ESR 11 mm/hr (0-20) 06/27/19 06:46 PT 19.4 sec (9.0-12.0) H 06/29/19 07:34 INR 2.0 (<1.2) H 06/29/19 07:34 APTT 25.1 sec (22.0-30.0) 06/26/19 13:55 Sodium 138 mmol/L (137-145) 06/29/19 07:34 Potassium 4.3 mmol/L (3.5-5.1) 06/29/19 07:34 Chloride 108 mmol/L (98-107) H 06/29/19 07:34 Carbon Dioxide 24 mmol/L (22-30) 06/29/19 07:34 Anion Gap 6 mmol/L 06/29/19 07:34 BUN 19 mg/dL (7-17) H 06/29/19 07:34 Creatinine 0.85 mg/dL (0.52-1.04) 06/29/19 07:34 Est GFR (CKD-EPI)AfAm 76 (>60 ml/min/1.73 sqM) 06/29/19 07:34 Est GFR (CKD-EPI)NonAf 66 (>60 ml/min/1.73 sqM) 06/29/19 07:34 Glucose 112 mg/dL (74-99) H 06/29/19 07:34 POC Glucose (mg/dL) 136 mg/dL (75-99) H 06/29/19 06:40 POC Glu Branch Store Manager Parisa Lamar 06/29/19 06:40 Calcium 8.4 mg/dL (8.4-10.2) 06/29/19 07:34 Magnesium 1.9 mg/dL (1.6-2.3) 06/26/19 13:55 Total Bilirubin 0.7 mg/dL (0.2-1.3) 06/26/19 13:55 AST 17 U/L (14-36) 06/26/19 13:55 ALT 6 U/L (9-52) L 06/26/19 13:55 Alkaline Phosphatase 44 U/L (38-126) 06/26/19 13:55 Troponin I <0.012 ng/mL (0.000-0.034) 06/26/19 13:55 C-Reactive Protein <5.0 mg/L (<10.0) 06/27/19 06:46 Total Protein 7.0 g/dL (6.3-8.2) 06/26/19 13:55 Albumin 4.1 g/dL (3.5-5.0) 06/26/19 13:55 Urine Color Yellow 06/26/19 14:05 Urine Appearance Turbid (Clear) H 06/26/19 14:05 Urine pH 5.5 (5.0-8.0) 06/26/19 14:05 Ur Specific [place] 1.020 (1.001-1.035) 06/26/19 14:05 Urine Protein 1+ (Negative) H 06/26/19 14:05 Urine Glucose (UA) Negative (Negative) 06/26/19 14:05 Urine Ketones Trace (Negative) H 06/26/19 14:05 Urine Blood Small (Negative) H 06/26/19 14:05 Urine Nitrite Negative (Negative) 06/26/19 14:05 Urine Bilirubin Negative (Negative) 06/26/19 14:05 Urine Urobilinogen 2.0 mg/dL (<2.0) 06/26/19 14:05 Ur Leukocyte Esterase Large (Negative) H 06/26/19 14:05 Urine WBC >182 /hpf (0-5) H 06/26/19 14:05 Urine WBC Clumps Many /hpf (None) H 06/26/19 14:05 Ur Squamous Epith Cells 2 /hpf (0-4) 06/26/19 14:05 Urine Bacteria Few /hpf (None) H 06/26/19 14:05 Hyaline Casts 30 /lpf (0-2) H 06/26/19 14:05 Urine Mucus Occasional /hpf (None) H 06/26/19 14:05 Microbiology 06/26/19 14:05 Urine,Voided Urine Culture - Final Escherichia coli 06/27/19 00:56 Blood Blood Culture - Preliminary No Growth after 48 hours Assessment and Plan (1) Acute abdominal pain Narrative/Plan: 79 old presents to hospital with the significant onset of severe left-sided lower abdominal pain so she will weakness generalized malaise nausea and some emesis some loose stool and fever. Her family brought her to hospital because of the symptoms. She did have imaging of her abdomen with a computed tomography scan that does not reveal evidence of any acute new abnormality.With current antibiotic therapy she is starting to feel somewhat better. Urinalysis is abnormal urine culture shows evidence of gram-negative bacilli. Ertapenem is being utilized with her history of the ESBL E. coli urinary infection. Culture of urine and blood will help determine the course of antibiotic therapy at the time of her discharge. She forges much more comfortable this point in time eating and drinking well but evidence of any acute colonic illness at this time. She was concerned because of her history of diverticulitis which does not seem to be active at this time. 06/29/2019 the patient is feeling slightly better. She is tolerating the current antibiotic therapy well with ertapenem which will be needed because of her ESBL E. coli that has been verified in her urine. She will receive a total of 14 days of this antibiotic for her complex upper tract infection is noted by her fever chills and malaise admission. She started to feel somewhat better. Benign catheter has been requested and is being placed. Ranges are being made for her placement at rehab to complete her course of antibiotics as well as ph ysical therapy to regain her independence. Current Visit: Yes Status: Acute Code(s): R10.9 - UNSPECIFIED ABDOMINAL PAIN SNOMED Code(s): 769766331 (2) History of infection due to ESBL Escherichia coli Current Visit: No Status: Acute Code(s): Z86.19 - PERSONAL HISTORY OF OTHER INFECTIOUS AND PARASITIC DISEASES SNOMED Code(s): 924671664 (3) Weakness Current Visit: No Status: Acute Code(s): R53.1 - WEAKNESS SNOMED Code(s): 54839730
[2019-06-30] MEDS: HYDROcodone/APAP 5-325MG 1 EACH TAB PO PRN ×2 (02:42→20:20)
[2019-06-30] MEDS: SODIUM CHLORIDE 0.9% 1,000 ML IV SCH ×2 (04:18→11:41)
[2019-06-30 07:05] LABS: Glucose,Whole Blood 84 mg/dL (75-99)
[2019-06-30 07:34] LABS: Basophils % (A) 1 %; Eosinophils # (A) 0.2 k/uL (0-0.7); Eosinophils % (A) 3 %; HCT 34.4 % (34.0-46.0); HGB 11.6 gm/dL (11.4-16.0); Lymphocytes # (A) 1.7 k/uL (1.0-4.8); Lymphocytes % (A) 28 %; MCH 31.6 pg (25.0-35.0); MCHC 33.8 g/dL (31.0-37.0); MCV 93.3 fL (80.0-100.0); Mean Platelet Volume 6.9; Monocytes # (A) 0.3 k/uL (0-1.0); Monocytes % (A) 5 %; Neutrophils # (A) 3.6 k/uL (1.3-7.7); Neutrophils % (A) 62 %; Platelet Count 211 k/uL (150-450); RBC 3.69 m/uL (3.80-5.40); RDW 12.5 % (11.5-15.5); WBC 5.9 k/uL (3.8-10.6)
[2019-06-30 07:46] LABS: INR 2.1 (<1.2); Prothrombin Time 20.4 sec (9.0-12.0)
[2019-06-30] MEDS: CHOLECALCIFEROL 1,000 UNIT TAB PO SCH (07:49)
[2019-06-30] MEDS: PANTOPRAZOLE 40 MG TABLET PO SCH (07:49)
[2019-06-30] MEDS: SPIRONOLACTONE 25 MG TAB PO SCH (07:49)
[2019-06-30] MEDS: ERTAPENEM 1 GM in SODIUM CHLORIDE 0.9% 50 ML IVPB SCH (07:49)
[2019-06-30] MEDS: amLODIPine 5 MG TAB PO SCH (07:49)
[2019-06-30] MEDS: CARBIDOPA-LEVODOPA ER 25-100MG 1 EACH TABLET.ER PO SCH ×5 (07:50→22:15)
[2019-06-30] MEDS: LISINOPRIL-HCTZ 10-12.5 MG 1 EACH TAB PO SCH (07:50)
[2019-06-30] MEDS: BISACODYL 5 MG TABLET.DR PO SCH ×2 (07:50→20:21)
[2019-06-30 07:51] LABS: Calcium 8.8 mg/dL (8.4-10.2); Potassium 4.6 mmol/L (3.5-5.1)
[2019-06-30] MEDS: WARFARIN 1.25 MG TAB PO SCH (16:55)
[2019-06-30] MEDS: Mirabegron [Myrbetriq] PO SCH (20:21)
--- NOTE | 2019-06-30 20:37 | P.PN ---
Subjective Progress Note Date: 06/30/19 Patient is a 79 year female with a past medical history significant for recurrent urinary tract infection and recent history of ESBL E. coli UTI that was treated with a two-week course of IV Invanz patient is now presenting back to [facility] ER with a chief complaint of feeling weak and lightheaded but no history of any syncope or falls the patient is also complaining of her lower abdominal crampy pain with intensity of 45-10 and no radiation patient also complaining of diarrhea for the last few days with about 3-4 loose stools per day no blood or mucus in the stool patient has been managed he that her urine is getting more darker and she did have some burning of urination with the symptoms the patient has been evaluated by the physician on arrival to the the patient has been afebrile patient white count was normal a she did have a positive UA having more than 1 WBC patient has been started on Rocephin she was admitted to hospital with concern for possible ESBL pathogen in fectious disease has been consulted for further recommendation patient just have her CT of abdominal pelvis completed waiting for the final report 06/28/2019 the patient is feeling slightly better today. Fever seems to have improved. She is no longer having nausea or profound weakness. Still feels poorly felt. 06/29/2019 the patient is feeling slightly better today. Seems to responding well to current antibiotic therapy. Understands that she will need IV antibiotic therapy and plans to go to rehab. 06/30/2019 the patient continues to have some improvement of her status. Her appetite improved. Her pain is improved. She is awaiting her transfer to rehab. Objective - Vital Signs Vital signs: Vital Signs Temp 97.7 F 06/30/19 14:53 Pulse 68 06/30/19 14:53 Resp 16 06/30/19 14:53 BP 112/66 06/30/19 14:53 Pulse Ox 95 06/30/19 14:53 Intake & Output 06/30/19 06/30/19 07/01/19 06:59 18:59 06:59 Intake Total 50 318 50 Output Total 700 1100 Balance -650 -782 50 Intake: Oral 50 318 50 Output: Urine 700 1100 Other: Voiding Method Diaper Diaper Diaper Incontinent Incontinent Incontinent # Voids 1 - Exam Elderly 79-year-old woman seems somewhat uncomfortable not in severe pain HEENT: Anicteric conjunctiva are pink and moist nasal mucosa grossly intact without significant lesions, there is no thrush. Neck: The neck is supple without significant lymphadenopathy or thyromegaly. Lungs: Good bilateral air entry without significant crackles or wheezing. There is no significant bronchial sounds. There is no egophony or dullness. Heart: Regular rate and rhythm with an audible S1-S2, no S3 no S4. There is no significant murmur click or rub, PMI was nondisplaced. Abdomen: Soft with improvement of the severe left lower quadrant tenderness. Extremities: The upper extremities have excellent pulses they are symmetric, no significant petechiae or telangiectasia. No splinter hemorrhages were noted. The lower extremities are free from significant edema. The peripheral pulses were 2+ and symmetric. Neuro: Awake alert oriented to person place and time. There are no acute new gross focal sensory motor deficits. - Labs CBC & Chem 7: 06/30/19 07:05 06/30/19 07:05 Labs: Abnormal Lab Results - Last 24 Hours (Table) 06/30/19 06/30/19 06/30/19 Range/Units 07:05 07:05 07:05 RBC 3.69 L (3.80-5.40) m/uL PT 20.4 H (9.0-12.0) sec INR 2.1 H (<1.2) BUN 21 H (7-17) mg/dL Microbiology - Last 24 Hours (Table) 06/26/19 14:05 Urine Culture - Final Urine,Voided Escherichia coli 06/27/19 00:56 Blood Culture - Preliminary Blood No Growth after 72 hours Laboratory Results WBC 5.9 k/uL (3.8-10.6) 06/30/19 07:05 RBC 3.69 m/uL (3.80-5.40) L 06/30/19 07:05 Hgb 11.6 gm/dL (11.4-16.0) 06/30/19 07:05 Hct 34.4 % (34.0-46.0) 06/30/19 07:05 MCV 93.3 fL (80.0-100.0) 06/30/19 07:05 MCH 31.6 pg (25.0-35.0) 06/30/19 07:05 MCHC 33.8 g/dL (31.0-37.0) 06/30/19 07:05 RDW 12.5 % (11.5-15.5) 06/30/19 07:05 Plt Count 211 k/uL (150-450) 06/30/19 07:05 Neutrophils % 62 % 06/30/19 07:05 Lymphocytes % 28 % 06/30/19 07:05 Monocytes % 5 % 06/30/19 07:05 Eosinophils % 3 % 06/30/19 07:05 Basophils % 1 % 06/30/19 07:05 Neutrophils # 3.6 k/uL (1.3-7.7) 06/30/19 07:05 Lymphocytes # 1.7 k/uL (1.0-4.8) 06/30/19 07:05 Monocytes # 0.3 k/uL (0-1.0) 06/30/19 07:05 Eosinophils # 0.2 k/uL (0-0.7) 06/30/19 07:05 Basophils # 0.0 k/uL (0-0.2) 06/30/19 07:05 ESR 11 mm/hr (0-20) 06/27/19 06:46 PT 20.4 sec (9.0-12.0) H 06/30/19 07:05 INR 2.1 (<1.2) H 06/30/19 07:05 APTT 25.1 sec (22.0-30.0) 06/26/19 13:55 Sodium 139 mmol/L (137-145) 06/30/19 07:05 Potassium 4.6 mmol/L (3.5-5.1) 06/30/19 07:05 Chloride 106 mmol/L (98-107) 06/30/19 07:05 Carbon Dioxide 29 mmol/L (22-30) 06/30/19 07:05 Anion Gap 4 mmol/L 06/30/19 07:05 BUN 21 mg/dL (7-17) H 06/30/19 07:05 Creatinine 0.83 mg/dL (0.52-1.04) 06/30/19 07:05 Est GFR (CKD-EPI)AfAm 78 (>60 ml/min/1.73 sqM) 06/30/19 07:05 Est GFR (CKD-EPI)NonAf 68 (>60 ml/min/1.73 sqM) 06/30/19 07:05 Glucose 81 mg/dL (74-99) 06/30/19 07:05 POC Glucose (mg/dL) 84 mg/dL (75-99) 06/30/19 07:03 POC Glu Medical Radiation Therapist ID Sagrario Foley 06/30/19 07:03 Calcium 8.8 mg/dL (8.4-10.2) 06/30/19 07:05 Magnesium 1.9 mg/dL (1.6-2.3) 06/26/19 13:55 Total Bilirubin 0.7 mg/dL (0.2-1.3) 06/26/19 13:55 AST 17 U/L (14-36) 06/26/19 13:55 ALT 6 U/L (9-52) L 06/26/19 13:55 Alkaline Phosphatase 44 U/L (38-126) 06/26/19 13:55 Troponin I <0.012 ng/mL (0.000-0.034) 06/26/19 13:55 C-Reactive Protein <5.0 mg/L (<10.0) 06/27/19 06:46 Total Protein 7.0 g/dL (6.3-8.2) 06/26/19 13:55 Albumin 4.1 g/dL (3.5-5.0) 06/26/19 13:55 Urine Color Yellow 06/26/19 14:05 Urine Appearance Turbid (Clear) H 06/26/19 14:05 Urine pH 5.5 (5.0-8.0) 06/26/19 14:05 Ur Specific [place] 1.020 (1.001-1.035) 06/26/19 14:05 Urine Protein 1+ (Negative) H 06/26/19 14:05 Urine Glucose (UA) Negative (Negative) 06/26/19 14:05 Urine Ketones Trace (Negative) H 06/26/19 14:05 Urine Blood Small (Negative) H 06/26/19 14:05 Urine Nitrite Negative (Negative) 06/26/19 14:05 Urine Bilirubin Negative (Negative) 06/26/19 14:05 Urine Urobilinogen 2.0 mg/dL (<2.0) 06/26/19 14:05 Ur Leukocyte Esterase Large (Negative) H 06/26/19 14:05 Urine WBC >182 /hpf (0-5) H 06/26/19 14:05 Urine WBC Clumps Many /hpf (None) H 06/26/19 14:05 Ur Squamous Epith Cells 2 /hpf (0-4) 06/26/19 14:05 Urine Bacteria Few /hpf (None) H 06/26/19 14:05 Hyaline Casts 30 /lpf (0-2) H 06/26/19 14:05 Urine Mucus Occasional /hpf (None) H 06/26/19 14:05 Microbiology 06/26/19 14:05 Urine,Voided Urine Culture - Final Escherichia coli 06/27/19 00:56 Blood Blood Culture - Preliminary No Growth after 72 hours Assessment and Plan (1) Acute abdominal pain Narrative/Plan: 79 old presents to hospital with the significant onset of severe left-sided lower abdominal pain so she will weakness generalized malaise nausea and some emesis some loose stool and fever. Her family brought her to hospital because of the symptoms. She did have imaging of her abdomen with a computed tomography scan that does not reveal evidence of any acute new abnormality.With current an tibiotic therapy she is starting to feel somewhat better. Urinalysis is abnormal urine culture shows evidence of gram-negative bacilli. Ertapenem is being utilized with her history of the ESBL E. coli urinary infection. Culture of urine and blood will help determine the course of antibiotic therapy at the time of her discharge. She forges much more comfortable this point in time eating and drinking well but evidence of any acute colonic illness at this time. She was concerned because of her history of diverticulitis which does not seem to be active at this time. 06/29/2019 the patient is feeling slightly better. She is tolerating the current antibiotic therapy well with ertapenem which will be needed because of her ESBL E. coli that has been verified in her urine. She will receive a total of 14 days of this antibiotic for her complex upper tract infection is noted by her fever chills and malaise admission. She started to feel somewhat better. Benign catheter has been requested and is being placed. Ranges are being made for her placement at rehab to complete her course of antibiotics as well as physical therapy to regain her independence. 06/30/2019 reveals evidence some further improvement. She's doing well with the current antibiotic therapy of ertapenem for her ESBL E. coli infection of her urine. She will have approximately 12 days of therapy at the rehab facility for her antibiotics in her physical therapy to help her regain her independence. Transfer appears to be arranged for Friday. Current Visit: Yes Status: Acute Code(s): R10.9 - UNSPECIFIED ABDOMINAL PAIN SNOMED Code(s): 901850741 (2) History of infection due to ESBL Escherichia coli Current Visit: No Status: Acute Code(s): Z86.19 - PERSONAL HISTORY OF OTHER INFECTIOUS AND PARASITIC DISEASES SNOMED Code(s): 775608069 (3) Weakness Current Visit: No Status: Acute Code(s): R53.1 - WEAKNESS SNOMED Code(s): 03307150
[2019-06-30 21:10] LABS: Glucose,Whole Blood 101 mg/dL (75-99)
--- NOTE | 2019-06-30 23:06 | P.PN ---
Progress Note - Text Progress Note Date: 06/30/19 nterval history: This is a very pleasant 78-year-old patient of Dr. Benitez. Lives with her steven paez. Chronic stable medical conditions include asthma hypertension osteoarthritis, diverticulosis, Parkinson's disease,. Patient also got chronic DVT and chronically on Coumadin. CHF with EF of 55-60% patient has chronic lower extremities swelling from venous insufficiency. Patient's had multiple UTIs. This admission patient presented with abdominal pain. It was not felt to be surgical. Computed tomography scan of the abdomen unremarkable. Being treated for UTI. Also had left ankle pain. Fracture was ruled out. Possibly sprain. Today-tolerating her diet. Abdominal pain much better. No new issues. Sitting up in the bed. Review of systems: Was done for constitutional, cardiovascular, GI, pulmonary. relevant finding as above Active Medications Acetaminophen (Tylenol Tab) 650 mg PO Q6HR PRN PRN Reason: Fever and/ or Pain Last Admin: 06/26/19 20:31 Dose: 650 mg Documented by: Hydrocodone Bitart/Acetaminophen (Irmo 5-325) 1 each PO Q6HR PRN PRN Reason: Pain Last Admin: 06/30/19 20:20 Dose: 1 each Documented by: Alprazolam (Xanax) 0.25 mg PO TID PRN PRN Reason: Anxiety Amlodipine Besylate (Norvasc) 5 mg PO DAILY [facility] Last Admin: 06/30/19 07:49 Dose: 5 mg Documented by: Bisacodyl (Dulcolax) 5 mg PO BID [facility] Last Admin: 06/30/19 20:21 Dose: 5 mg Documented by: Carbidopa/Levodopa (Sinemet Er 25-100) 1 each PO 0700,1100,1500,1900 [facility] Last Admin: 06/30/19 20:20 Dose: 1 each Documented by: Carbidopa/Levodopa (Sinemet Er 25-100) 1 each PO 2300 [facility] Last Admin: 06/30/19 22:15 Dose: 1 each Documented by: Cholecalciferol (Vitamin D3 (25 Mcg = 1000 Iu)) 2,000 unit PO DAILY [facility] Last Admin: 06/30/19 07:49 Dose: 2,000 unit Documented by: Lisinopril/HCTZ (Zestoretic 10-12.5) 1 each PO DAILY [facility] Last Admin: 11/27/19 07:50 Dose: 1 each Documented by: Hydromorphone HCl (Dilaudid) 0.5 mg IVP Q6HR PRN PRN Reason: Pain Last Admin: 06/27/19 05:19 Dose: 0.5 mg Documented by: Sodium Chloride (Saline 0.9%) 1,000 mls @ 85 mls/hr IV .[id number] [facility] Last Admin: 06/30/19 11:41 Dose: 85 mls/hr Documented by: Ertapenem 1 gm/ Sodium (Chloride) 50 mls @ 100 mls/hr IVPB DAILY [facility]; Protocol Last Admin: 06/30/19 07:49 Dose: 100 mls/hr Documented by: Miscellaneous Information (Coumadin Per Pharmacy) 0 each MISCELLANE DIRECTED PRN PRN Reason: Per Protocol Naloxone HCl (Narcan) 0.2 mg IV Q2M PRN PRN Reason: Opioid Reversal Mirabegron [ (Myrbetriq]) 25 mg PO HS [facility] Last Admin: 06/30/19 20:21 Dose: 25 mg Documented by: Ondansetron HCl (Zofran) 4 mg IVP Q6HR PRN PRN Reason: Nausea And Vomiting Last Admin: 06/29/19 10:06 Dose: 4 mg Documented by: Pantoprazole Sodium (Protonix) 40 mg PO AC-BRKFST [facility] Last Admin: 06/30/19 07:49 Dose: 40 mg Documented by: Senna/Docusate Sodium (Senokot-S) 1 each PO DAILY PRN PRN Reason: Constipation Last Admin: 06/29/19 07:26 Dose: 1 each Documented by: Spironolactone (Aldactone) 25 mg PO DAILY [facility] Last Admin: 06/30/19 07:49 Dose: 25 mg Documented by: Temazepam (Restoril) 15 mg PO HS PRN PRN Reason: Insomnia Last Admin: 06/27/19 22:01 Dose: 15 mg Documented by: Warfarin Sodium (Coumadin) 1.25 mg PO [id number] [facility] Last Admin: 06/30/19 16:55 Dose: 1.25 mg Documented by: Physical examination: VITAL SIGNS: 97.7, 68, 16, 11 2/66, 95% room air GENERAL: Sitting up in bed, awake EYES: Pupils equal. Conjunctiva normal. HEENT: External appearance of nose and ears normal, oral cavity grossly normal. NECK: JVD not raised; masses not palpable. HEART: First and second heart sounds are normal; edema present. LUNGS: Respiratory rate increased, decreased breath sounds ABDOMEN: Soft, no tenderness, liver spleen not palpable, no masses palpable. PSYCH: Alert and oriented x3; mood and affect normal. Investigations reviewed in the clinical context: White count 5.9 and hemoglobin 11.6 platelets 211 INR 2.1 progression 4.6 creatinine 0.83 Computed tomography scan his abdomen-unremarkable Urine culture-ESBL Discharge diagnoses: -Acute UTI with cystitis recurrent s with,cultures positive for E. coli/ESBL, -Acute abdominal pain, functional. Improved -Acute left ankle pain likely from sprain no fracture. 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 Does need a 3 night stay. He'll be discharged Friday. Antibiotics other medications to continue. Care discussed the patient.
[2019-07-01] MEDS: SODIUM CHLORIDE 0.9% 1,000 ML IV SCH ×2 (05:42→15:27)
[2019-07-01 06:44] LABS: Glucose,Whole Blood 81 mg/dL (75-99)
[2019-07-01] MEDS: ONDANSETRON 4 MG/2 ML VIAL IVP PRN (07:47)
[2019-07-01] MEDS: LISINOPRIL-HCTZ 10-12.5 MG 1 EACH TAB PO SCH (07:47)
[2019-07-01] MEDS: SPIRONOLACTONE 25 MG TAB PO SCH (07:48)
[2019-07-01] MEDS: CHOLECALCIFEROL 1,000 UNIT TAB PO SCH (07:48)
[2019-07-01] MEDS: amLODIPine 5 MG TAB PO SCH (07:48)
[2019-07-01] MEDS: BISACODYL 5 MG TABLET.DR PO SCH ×2 (07:48→20:03)
[2019-07-01] MEDS: ERTAPENEM 1 GM in SODIUM CHLORIDE 0.9% 50 ML IVPB SCH (07:49)
[2019-07-01] MEDS: PANTOPRAZOLE 40 MG TABLET PO SCH (07:49)
[2019-07-01] MEDS: CARBIDOPA-LEVODOPA ER 25-100MG 1 EACH TABLET.ER PO SCH ×5 (07:49→23:02)
[2019-07-01 08:19] LABS: INR 1.8 (<1.2); Prothrombin Time 18.1 sec (9.0-12.0)
[2019-07-01 11:35] LABS: Glucose,Whole Blood 108 mg/dL (75-99)
[2019-07-01 16:36] LABS: Glucose,Whole Blood 85 mg/dL (75-99)
[2019-07-01] MEDS: ACETAMINOPHEN TAB 325 MG TAB PO PRN (17:27)
[2019-07-01] MEDS ORDERED: WARFARIN 2 MG TAB PO ONE (18:00)
[2019-07-01 18:59] VITALS: RESP 16
[2019-07-01] MEDS: Mirabegron [Myrbetriq] PO SCH (20:04)
[2019-07-01 20:30] LABS: Glucose,Whole Blood 114 mg/dL (75-99)
--- NOTE | 2019-07-01 22:05 | P.PN ---
Progress Note - Text Progress Note Date: 07/01/19 nterval history: This is a very pleasant 78-year-old patient of Dr. Benitez. Lives with her steven paez. Chronic stable medical conditions include asthma hypertension osteoarthritis, diverticulosis, Parkinson's disease,. Patient also got chronic DVT and chronically on Coumadin. CHF with EF of 55-60% patient has chronic lower extremities swelling from venous insufficiency. Patient's had multiple UTIs. This admission patient presented with abdominal pain. It was not felt to be surgical. Computed tomography scan of the abdomen unremarkable. Being treated for UTI. Also had left ankle pain. Fracture was ruled out. Possibly sprain. Today-Intermittent lower abdominal pain. [place] to be cystitis. No nausea vomiting. Oral intake fair.. Eating about 50% of formations. Review of systems: Was done for constitutional, cardiovascular, GI, pulmonary. relevant finding as above Active Medications Acetaminophen (Tylenol Tab) 650 mg PO Q6HR PRN PRN Reason: Fever and/ or Pain Last Admin: 07/01/19 17:27 Dose: 650 mg Documented by: Hydrocodone Bitart/Acetaminophen (Fowler 5-325) 1 each PO Q6HR PRN PRN Reason: Pain Last Admin: 06/30/19 20:20 Dose: 1 each Documented by: Alprazolam (Xanax) 0.25 mg PO TID PRN PRN Reason: Anxiety Amlodipine Besylate (Norvasc) 5 mg PO DAILY [facility] Last Admin: 07/01/19 07:48 Dose: 5 mg Documented by: Bisacodyl (Dulcolax) 5 mg PO BID [facility] Last Admin: 07/01/19 20:03 Dose: 5 mg Documented by: Carbidopa/Levodopa (Sinemet Er 25-100) 1 each PO 0700,1100,1500,1900 [facility] Last Admin: 07/01/19 20:04 Dose: 1 each Documented by: Carbidopa/Levodopa (Sinemet Er 25-100) 1 each PO 2300 [facility] Last Admin: 06/30/19 22:15 Dose: 1 each Documented by: Cholecalciferol (Vitamin D3 (25 Mcg = 1000 Iu)) 2,000 unit PO DAILY [facility] Last Admin: 07/01/19 07:48 Dose: 2,000 unit Documented by: Lisinopril/HCTZ (Zestoretic 10-12.5) 1 each PO DAILY [facility] Last Admin: 07/01/19 07:47 Dose: 1 each Documented by: Hydromorphone HCl (Dilaudid) 0.5 mg IVP Q6HR PRN PRN Reason: Pain Last Admin: 06/27/19 05:19 Dose: 0.5 mg Documented by: Sodium Chloride (Saline 0.9%) 1,000 mls @ 85 mls/hr IV .[id number] [facility] Last Admin: 07/01/19 15:27 Dose: Not Given Documented by: Ertapenem 1 gm/ Sodium (Chloride) 50 mls @ 100 mls/hr IVPB DAILY [facility]; Protocol Last Admin: 07/01/19 07:49 Dose: 100 mls/hr Documented by: Miscellaneous Information (Coumadin Per Pharmacy) 0 each MISCELLANE DIRECTED PRN PRN Reason: Per Protocol Naloxone HCl (Narcan) 0.2 mg IV Q2M PRN PRN Reason: Opioid Reversal Mirabegron [ (Myrbetriq]) 25 mg PO HS [facility] Last Admin: 07/01/19 20:04 Dose: 25 mg Documented by: Ondansetron HCl (Zofran) 4 mg IVP Q6HR PRN PRN Reason: Nausea And Vomiting Last Admin: 07/01/19 07:47 Dose: 4 mg Documented by: Pantoprazole Sodium (Protonix) 40 mg PO -BRKFST [facility] Last Admin: 07/01/19 07:49 Dose: 40 mg Documented by: Senna/Docusate Sodium (Senokot-S) 1 each PO DAILY PRN PRN Reason: Constipation Last Admin: 06/29/19 07:26 Dose: 1 each Documented by: Spironolactone (Aldactone) 25 mg PO DAILY [facility] Last Admin: 07/01/19 07:48 Dose: 25 mg Documented by: Temazepam (Restoril) 15 mg PO HS PRN PRN Reason: Insomnia Last Admin: 06/27/19 22:01 Dose: 15 mg Documented by: Warfarin Sodium (Coumadin) 1.25 mg PO SuTuWeThFrSa@1800 [facility] Last Admin: 07/01/19 17:28 Dose: 1.25 mg Documented by: Physical examination: VITAL SIGNS: 97.6, 64, 16, 121/64, 92% room air GENERAL: Laying in bed, comfortable EYES: Pupils equal. Conjunctiva normal. HEENT: External appearance of nose and ears normal, oral cavity grossly normal. NECK: JVD not raised; masses not palpable. HEART: First and second heart sounds are normal; edema present. LUNGS: Respiratory rate increased, decreased breath sounds ABDOMEN: Soft, minimal suprapubic tenderness, no guarding or rigidity, liver spleen not palpable, no masses palpable. PSYCH: Alert and oriented x3; mood and affect normal. Investigations reviewed in the clinical context: White count 5.9 and hemoglobin 11.6 platelets 211 INR 2.1 progression 4.6 creatinine 0.83 Computed tomography scan his abdomen-unremarkable Urine culture-ESBL Discharge diagnoses: -Acute UTI with cystitis recurrent s with,cultures positive for E. coli/ESBL, -Acute abdominal pain, functional. Possibly from cystitis. Improved -Acute left ankle pain likely from sprain no fracture. 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 Plan. Should be able to be discharged to [facility] tomorrow.
[2019-07-01] MEDS: HYDROcodone/APAP 5-325MG 1 EACH TAB PO PRN (23:01)
[2019-07-02] MEDS: SODIUM CHLORIDE 0.9% 1,000 ML IV SCH ×2 (04:16→11:12)
[2019-07-02 07:04] LABS: Glucose,Whole Blood 93 mg/dL (75-99)
[2019-07-02] MEDS: PANTOPRAZOLE 40 MG TABLET PO SCH (07:40)
[2019-07-02] MEDS: CARBIDOPA-LEVODOPA ER 25-100MG 1 EACH TABLET.ER PO SCH ×3 (07:41→15:07)
[2019-07-02 08:26] LABS: INR 1.9 (<1.2); Prothrombin Time 19.1 sec (9.0-12.0)
[2019-07-02] MEDS: CHOLECALCIFEROL 1,000 UNIT TAB PO SCH (08:40)
[2019-07-02] MEDS: BISACODYL 5 MG TABLET.DR PO SCH (08:40)
[2019-07-02] MEDS: SPIRONOLACTONE 25 MG TAB PO SCH (08:40)
[2019-07-02] MEDS: ERTAPENEM 1 GM in SODIUM CHLORIDE 0.9% 50 ML IVPB SCH (08:40)
[2019-07-02] MEDS: amLODIPine 5 MG TAB PO SCH (08:40)
[2019-07-02] MEDS: LISINOPRIL-HCTZ 10-12.5 MG 1 EACH TAB PO SCH (08:40)
[2019-07-02] MEDS: HYDROcodone/APAP 5-325MG 1 EACH TAB PO PRN (08:47)
[2019-07-02 11:46] LABS: Glucose,Whole Blood 92 mg/dL (75-99)
--- NOTE | 2019-07-02 12:33 | P.DS ---
Providers Date of admission: 06/28/19 11:41 Expected date of discharge: 07/02/19 Attending physician: Tim Levy Consults: 06/27/19 12:56 Consult Physician Routine Consulting Provider: Jarocho Alas Consult Reason/Comments: esbl Do you want consulting provider notified?: Yes 06/28/19 09:03 Consult Physician Routine Consulting Provider: Faustino Pruett Consult Reason/Comments: esbl Do you want consulting provider notified?: Yes Primary care physician: Angel Benitez [facility] Course: Hospital course: This is a very pleasant 78-year-old patient of Dr. Benitez. Lives with her daughter. Chronic stable medical conditions include asthma hypertension osteoarthritis, diverticulosis, Parkinson's disease,. Patient also got chronic DVT and chronically on Coumadin. CHF with EF of 55-60% patient has chronic lower extremities swelling from venous insufficiency. Patient's had multiple UTIs. This admission patient presented with abdominal pain. It was not felt to be valadez rgical. Computed tomography scan of the abdomen unremarkable. Being treated for UTI. Also had left ankle pain. Fracture was ruled out. Possibly sprain. Today-sitting on bed. Comfortable. Occasional abdominal pain. Had a bowel movement. Tolerated diet. Consults: Dr. Pruett for infectious disease Dr. Harris from orthopedics Physical examination: VITAL SIGNS: 98.3, 69, 16, 118-70, 91% on room air GENERAL: Propped up in bed, comfortable EYES: Pupils equal. Conjunctiva normal. HEENT: External appearance of nose and ears normal, oral cavity grossly normal. NECK: JVD not raised; masses not palpable. HEART: First and second heart sounds are normal; edema present. LUNGS: Respiratory rate increased, decreased breath sounds ABDOMEN: Soft, no tenderness, no guarding or rigidity, liver spleen not palpable, no masses palpable. PSYCH: Alert and oriented x3; mood and affect normal. Investigations reviewed in the clinical context: INR 1.9 White count 5.9 and hemoglobin 11.6 platelets 211 progression 4.6 creatinine 0.83 Computed tomography scan his abdomen-unremarkable Urine culture-ESBL Discharge diagnoses: -Acute UTI with cystitis recurrent s with,cultures positive for E. coli/ESBL, -Acute abdominal pain, functional. Possibly from cystitis. Improved -Acute left ankle pain likely from sprain no fracture. -Chronic congestive heart failure from diastolic dysfunction EF 55-60% -Obesity BMI 34.5 -Chronic DVT for which patient chronically on Coumadin -GERD -Essential hypertension -Mild cognitive impairment from underlying Alzheimer's dementia -Primary osteoarthritis -Idiopathic Parkinson's disease -Chronic urinary stress incontinence -Chronic gait dysfunction uses a walker -Chronic lower extremity swelling from DVT causing venous insufficiency Disposition: F/Regen Patient Condition at Discharge: Stable Plan - Discharge Summary Discharge Rx Participant: Yes New Discharge Prescriptions: No Action Omeprazole [PriLOSEC] 20 mg PO BID Carbidopa-Levodopa ER 25-100Mg [Sinemet CR 25-100 mg] 1 tab PO Q4HR Spironolactone [Aldactone] 25 mg PO DAILY tab Sennosides-Docusate Sodium [Senokot-S] 1 tab PO DAILY PRN PRN Reason: Constipation Mirabegron [Myrbetriq] 25 mg PO HS Cholecalciferol [Vitamin D3 (25 Mcg = 1000 Iu)] 2,000 unit PO DAILY Bisacodyl [Dulcolax] 5 mg PO BID Acetaminophen Tab [Tylenol] 500 mg PO TID PRN PRN Reason: Pain Lisinopril-Hctz 10-12.5 mg [Zestoretic 10-12.5] 1 tab PO DAILY Warfarin [Coumadin] 1.25 mg PO SUTUWETHFRSA@1500 amLODIPine [Norvasc] 5 mg PO DAILY Discharge Medication List Carbidopa-Levodopa ER 25-100Mg [Sinemet CR 25-100 mg] 1 tab PO Q4HR 01/11/19 [History] Omeprazole [PriLOSEC] 20 mg PO BID 01/11/19 [History] Spironolactone [Aldactone] 25 mg PO DAILY tab 01/25/19 [Rx] Mirabegron [Myrbetriq] 25 mg PO HS 02/11/19 [History] Sennosides-Docusate Sodium [Senokot-S] 1 tab PO DAILY PRN 02/11/19 [History] Acetaminophen Tab [Tylenol] 500 mg PO TID PRN 02/19/19 [History] Bisacodyl [Dulcolax] 5 mg PO BID 02/19/19 [History] Cholecalciferol [Vitamin D3 (25 Mcg = 1000 Iu)] 2,000 unit PO DAILY 02/19/19 [History] Lisinopril-Hctz 10-12.5 mg [Zestoretic 10-12.5] 1 tab PO DAILY 03/09/19 [History] Warfarin [Coumadin] 1.25 mg PO SUTUWETHFRSA@1500 04/07/19 [History] amLODIPine [Norvasc] 5 mg PO DAILY 06/26/19 [History] Follow up Appointment(s)/Referral(s): Angel Benitez DO [Primary Care Provider] - 1-2 days Edu Harris MD [STAFF PHYSICIAN] - 1 Week
[2019-07-02 14:49] VITALS: BP 94/58; PULSE 66; TEMP 97.5
[2019-07-02] MEDS ORDERED: WARFARIN 1.25 MG TAB PO SCH (18:00)
== END 2019-07-02 15:13 | DRG 689 ==
LOC: EC 13:26 → 4SSUR 15:35 → OBSVTOIN 06-28 11:41
PROVIDERS: ADMIT Hospitalist; ATTEND Hospitalist
PROC: 05HF33Z Insertion of Infusion Device into Left Cephalic Vein, Percutaneous Approach (ICD-10-PCS; principal; 2019-06-29 14:00)
DX: N30.00 Acute cystitis without hematuria (principal); N17.0 Acute kidney failure with tubular necrosis; K51.90 Ulcerative colitis, unspecified, without complications; I50.32 Chronic diastolic (congestive) heart failure; Z16.12 Extended spectrum beta lactamase (ESBL) resistance; Z16.24 Resistance to multiple antibiotics; G20 Parkinson's disease; I11.0 Hypertensive heart disease with heart failure; E86.0 Dehydration; G30.9 Alzheimer's disease, unspecified; F02.80 Dementia in other diseases classified elsewhere, unspecified severity, without behavioral disturbance, psychotic disturbance, mood disturbance, and anxiety; B96.20 Unspecified Escherichia coli [E. coli] as the cause of diseases classified elsewhere; I87.2 Venous insufficiency (chronic) (peripheral); N39.3 Stress incontinence (female) (male); K57.90 Diverticulosis of intestine, part unspecified, without perforation or abscess without bleeding; G89.29 Other chronic pain; I95.1 Orthostatic hypotension; J45.909 Unspecified asthma, uncomplicated; K21.9 Gastro-esophageal reflux disease without esophagitis; M19.91 Primary osteoarthritis, unspecified site; R26.9 Unspecified abnormalities of gait and mobility; M25.572 Pain in left ankle and joints of left foot; E66.9 Obesity, unspecified; Z68.33 Body mass index [BMI] 33.0-33.9, adult; Z79.01 Long term (current) use of anticoagulants; Z79.899 Other long term (current) drug therapy; Z86.73 Personal history of transient ischemic attack (TIA), and cerebral infarction without residual deficits; Z86.718 Personal history of other venous thrombosis and embolism; Z90.49 Acquired absence of other specified parts of digestive tract; Z90.710 Acquired absence of both cervix and uterus; Z98.51 Tubal ligation status; Z98.890 Other specified postprocedural states; Z87.440 Personal history of urinary (tract) infections; Z86.711 Personal history of pulmonary embolism; Z86.72 Personal history of thrombophlebitis; Z86.59 Personal history of other mental and behavioral disorders; Z86.19 Personal history of other infectious and parasitic diseases; Z98.42 Cataract extraction status, left eye; Z98.41 Cataract extraction status, right eye; Z96.1 Presence of intraocular lens; Z88.0 Allergy status to penicillin; Z88.7 Allergy status to serum and vaccine; Z91.041 Radiographic dye allergy status; W19.XXXA Unspecified fall, initial encounter; Z82.5 Family history of asthma and other chronic lower respiratory diseases; Z82.49 Family history of ischemic heart disease and other diseases of the circulatory system; Z80.0 Family history of malignant neoplasm of digestive organs
CPT/HCPCS: 36410; 36415; 51701; 70450; 71046; 74018; 74176; 76937; 80048; 80053; 81001; 83735; 84484; 85025; 85610; 85652; 85730; 86140; 87040; 87077; 87086; 87186; 93005; 93979; 96360; 96361; 99285

== ENCOUNTER 2019-07-27 05:45 | Emergency (ER) | payer MEDICARE, OTHER ==
[2019-07-27 05:57] VITALS: BP 169/81; PULSE 77; RESP 18; TEMP 98.6
[2019-07-27 06:33] LABS: Appearance,Urine Clear (Clear); Bacteria,Urine Rare /hpf; Bilirubin,Urine Negative (Negative); Blood,Urine Trace (Negative); Color,Urine Yellow; Glucose,Urine (UA) Negative (Negative); Hyaline Casts,Urine 1 /lpf (0-2); Ketones,Urine Negative (Negative); Leukocyte Esterase,Urine Negative (Negative); Mucus,Urine Rare /hpf; Nitrite,Urine Negative (Negative); PH, Urine 5.5 (5.0-8.0); Protein,Urine Negative (Negative); RBC,Urine <1 /hpf (0-5); Specific Gravity,Urine 1.013 (1.001-1.035); Squamous Epithelial Cell,Urine 1 /hpf (0-4); Urobilinogen,Urine <2.0 mg/dL (<2.0); WBC,Urine 1 /hpf (0-5)
--- NOTE | 2019-07-27 06:38 | ED ---
Female Urogenital HPI - General Chief complaint: Urogenital Stated complaint: UTI Time Seen by Provider: 07/27/19 06:02 Source: patient, RN notes reviewed, old records reviewed Mode of arrival: ambulatory Limitations: no limitations - History of Present Illness Initial comments: Patient is a 79-year-old female, who presents emergency department today with 3 days of of dysuria. Patient is concerned she is developing another urinary tract infection. Patient states that she's had no recorded fevers or chills. Patient states that she has some lower abdominal cramping and bloating this. Patient states that she has had diarrhea past few days and did take Imodium. Patient reports that she's had a history of ESBL. She states that she's also been on doxycycline for upper respiratory infection and sore throat starting on Friday by an urgent care physician. Patient reports at that time she was also started on prednisone. Her daughter is sick with influenza. - Related Data Home Medications Medication Instructions Recorded Confirmed Carbidopa-Levodopa ER 25-100Mg 1 tab PO Q4HR 01/11/19 06/26/19 [Sinemet CR 25-100 mg] Omeprazole [PriLOSEC] 20 mg PO BID 01/11/19 06/26/19 Mirabegron [Myrbetriq] 25 mg PO HS 02/11/19 06/26/19 Sennosides-Docusate Sodium 1 tab PO DAILY PRN 02/11/19 06/26/19 [Senokot-S] Acetaminophen Tab [Tylenol] 500 mg PO TID PRN 02/19/19 06/26/19 Bisacodyl [Dulcolax] 5 mg PO BID 02/19/19 06/26/19 Cholecalciferol [Vitamin D3 (25 2,000 unit PO DAILY 02/19/19 06/26/19 Mcg = 1000 Iu)] Lisinopril-Hctz 10-12.5 mg 1 tab PO DAILY 03/09/19 06/26/19 [Zestoretic 10-12.5] Warfarin [Coumadin] 1.25 mg PO SUTUWETHFRSA@1500 04/07/19 06/26/19 amLODIPine [Norvasc] 5 mg PO DAILY 06/26/19 06/26/19 Previous Rx's Medication Instructions Recorded Spironolactone [Aldactone] 25 mg PO DAILY tab 01/25/19 Ertapenem [INVanz] 1 gm IVPB DAILY #8 vial 07/02/19 Melatonin 2 mg PO HS #14 tablet 07/02/19 Phenazopyridine [Pyridium] 100 mg PO TID #9 tablet 07/27/19 Allergies Allergy/AdvReac Type Severity Reaction Status Date / Time Influenza Virus Vaccines Allergy Swelling Verified 07/27/19 05:58 Iodinated Contrast Media Allergy Chest Pain Verified 07/27/19 05:58 [Iodinated Contrast- Oral and IV Dye] Penicillins Allergy Anaphylaxis Verified 07/27/19 05:58 Review of Systems ROS Statement: Those systems with pertinent positive or pertinent negative responses have been documented in the HPI. ROS Other: All systems not noted in ROS Statement are negative. Past Medical History Past Medical History: Asthma, Heart Failure, CVA/TIA, Deep Vein Thrombosis (DVT), GERD/Reflux, Hypertension, Memory Impairment, Musculoskeletal Disorder, Neurologic Disorder, Osteoarthritis (OA) Additional Past Medical History / Comment(s): Ulcerative colitis, diverticulitis, parkinson's disease, CVA which pt was unaware of having-showed on cat scan, several DVTs bilateral legs and pt states since she has had intermittent bilateral ankle edema, thrombophlebitis, PE-pt cannot recall laterallity, generalized arthritis, urinary leakage, a few UTIs, shingles History of Any Multi-Drug Resistant Organisms: ESBL Date of last positivie culture/infection: 06/26/19 ESBL E.coli MDRO Source:: Urine Past Surgical History: Appendectomy, Cholecystectomy, Hysterectomy, Orthopedic Surgery, Tubal Ligation Additional Past Surgical History / Comment(s): L shoulder injury with surgery to repair, removals of DVTs bilateral legs, cataract removal/lens implants, colonoscopies. Past Anesthesia/Blood Transfusion Reactions: Postoperative Nausea & Vomiting (PONV) Additional Past Anesthesia/Blood Transfusion Reaction / Comment(s): Pt received blood with hysterectomy without reaction. Past Psychological History: Anxiety Smoking Status: Never smoker Past Alcohol Use History: None Reported Past Drug Use History: None Reported - Past Family History Father Family Medical History: Asthma, Cancer, COPD Additional Family Medical History / Comment(s): Gallbladder cancer Mother Family Medical History: Myocardial Infarction (MN) Additional Family Medical History / Comment(s): Mother of a MN at the age of 48 yrs. Sister(s) Additional Family Medical History / Comment(s): Sister of a blood clot at age 38 yrs-pt cannot recall specifics. General Exam - General Exam Comments Initial Comments: 79 year old female, no distress. Limitations: no limitations General appearance: alert, in no apparent distress Head exam: Present: atraumatic, normocephalic, normal inspection Eye exam: Present: normal appearance, PERRL, EOMI. Absent: scleral icterus, conjunctival injection, periorbital swelling ENT exam: Present: normal exam, mucous membranes moist Neck exam: Present: normal inspection. Absent: tenderness, meningismus, lymphadenopathy Respiratory exam: Present: normal lung sounds bilaterally. Absent: respiratory distress, wheezes, rales, rhonchi, stridor Cardiovascular Exam: Present: regular rate, normal rhythm, normal heart sounds. Absent: systolic murmur, diastolic murmur, rubs, gallop, clicks GI/Abdominal exam: Present: soft, tenderness (suprapubic), normal bowel sounds. Absent: distended, guarding, rebound, rigid Extremities exam: Present: normal inspection, full ROM, normal capillary refill. Absent: tenderness, pedal edema, joint swelling, calf tenderness Back exam: Present: normal inspection Neurological exam: Present: alert, oriented X3, CN II-XII intact Psychiatric exam: Present: normal affect, normal mood Skin exam: Present: warm, dry, intact, normal color. Absent: rash Course Vital Signs 07/27/19 05:54 Temperature 98.6 F Pulse Rate 77 Respiratory 18 Rate Blood Pressure 169/81 O2 Sat by Pulse 92 L Oximetry Medical Decision Making - Medical Decision Making This patient's a 79-year-old female. She presents today with 2-3 days of dysuria. Patient is a history of long-standing urinary tract infections. She has history of resistance UTIs. Patient at this time her urine sample showed bacteria, but no white blood cells. No nitrates. She is also currently on doxycycline for an upper respiratory infection. I discussed the case with Dr. Hardy, about antibiotic choices. At this time we'll culture the urine and wait for this to be obtained before initiating further antibiotics. There is concern for more harm for putting a multiple antibiotics and Patient with Already resistant bacterial infections. Patient at this time will be given pyridium, and advised to take doxycycline as previously prescribed. - Lab Data Lab Results 07/27/19 Range/Units 06:10 Urine Color Yellow Urine Appearance Clear (Clear) Urine pH 5.5 (5.0-8.0) Ur Specific [place] 1.013 (1.001-1.035) Urine Protein Negative (Negative) Urine Glucose (UA) Negative (Negative) Urine Ketones Negative (Negative) Urine Blood Trace H (Negative) Urine Nitrite Negative (Negative) Urine Bilirubin Negative (Negative) Urine Urobilinogen <2.0 (<2.0) mg/dL Ur Leukocyte Esterase Negative (Negative) Urine RBC <1 (0-5) /hpf Urine WBC 1 (0-5) /hpf Ur Squamous Epith Cells 1 (0-4) /hpf Urine Bacteria Rare H (None) /hpf Hyaline Casts 1 (0-2) /lpf Urine Mucus Rare H (None) /hpf Disposition Clinical Impression: Dysuria Disposition: HOME SELF-CARE Condition: Good Instructions (If sedation given, give patient instructions): Dysuria (ED) Additional Instructions: Patient advised to continue doxycycline as prescribed. Patient is to use pyridium to help with dysuria. Recommended close follow-up with her primary care physician. Return to the emergency department if any alarming signs or symptoms occur. Rest, remain hydrated. Prescriptions: Phenazopyridine [Pyridium] 100 mg PO TID #9 tablet Is patient prescribed a controlled substance at d/c from ED?: No Referrals: Angel Benitez DO [Primary Care Provider] - 1-2 days Time of Disposition: 06:48
[2019-07-27] MEDS ORDERED: PHENAZOPYRIDINE 100 MG TAB PO STA (06:44)
== END 2019-07-27 07:21 | disposition home or self-care (01) ==
LOC: EC 05:45
DX: R30.0 Dysuria (principal); R10.30 Lower abdominal pain, unspecified; R14.0 Abdominal distension (gaseous); I11.0 Hypertensive heart disease with heart failure; I50.9 Heart failure, unspecified; K21.9 Gastro-esophageal reflux disease without esophagitis; G20 Parkinson's disease; Z79.01 Long term (current) use of anticoagulants; Z79.899 Other long term (current) drug therapy; Z88.7 Allergy status to serum and vaccine; Z88.0 Allergy status to penicillin; Z91.041 Radiographic dye allergy status; Z86.718 Personal history of other venous thrombosis and embolism; Z86.73 Personal history of transient ischemic attack (TIA), and cerebral infarction without residual deficits; Z90.710 Acquired absence of both cervix and uterus
CPT/HCPCS: 81001; 87077; 87086; 87186; 99284

== ENCOUNTER 2019-07-30 18:59 | Inpatient (IN) | payer MEDICARE, OTHER ==
[2019-07-30 20:06] LABS: Basophils # (A) 0.1 k/uL (0-0.2); Basophils % (A) 1 %; Eosinophils # (A) 0.1 k/uL (0-0.7); Eosinophils % (A) 1 %; HGB 12.1 gm/dL (11.4-16.0); Lymphocytes # (A) 1.8 k/uL (1.0-4.8); Lymphocytes % (A) 30 %; MCH 29.6 pg (25.0-35.0); MCHC 32.8 g/dL (31.0-37.0); MCV 90.5 fL (80.0-100.0); Mean Platelet Volume 7.2; Monocytes # (A) 0.3 k/uL (0-1.0); Monocytes % (A) 5 %; Neutrophils # (A) 3.5 k/uL (1.3-7.7); Neutrophils % (A) 61 %; Platelet Count 293 k/uL (150-450); RBC 4.09 m/uL (3.80-5.40); RDW 12.3 % (11.5-15.5); WBC 5.8 k/uL (3.8-10.6)
[2019-07-30 20:17] LABS: ALT <6 U/L (4-34); AST 20 U/L (14-36); African American GFR (CKD) 50 (>60 ml/min/1.73 sqM); Albumin 4.2 g/dL (3.5-5.0); Alkaline Phosphatase 67 U/L (38-126); Anion Gap 10 mmol/L; Blood Urea Nitrogen 42 mg/dL (7-17); Calcium 9.2 mg/dL (8.4-10.2); Carbon Dioxide 23 mmol/L (22-30); Chloride 104 mmol/L (98-107); Glucose 104 mg/dL (74-99); Non-African American GFR(CKD) 44 (>60 ml/min/1.73 sqM); Potassium 4.1 mmol/L (3.5-5.1); Sodium 137 mmol/L (137-145); Total Bilirubin 0.7 mg/dL (0.2-1.3); Total Protein 6.9 g/dL (6.3-8.2)
[2019-07-30] MEDS: MEROPENEM 1 GM in SODIUM CHLORIDE 0.9% 100 ML IVPB SCH (21:17)
[2019-07-30] MEDS ORDERED: NALOXONE 0.4 MG/ML 1 ML VIAL IV PRN (21:20)
--- NOTE | 2019-07-30 21:20 | ED ---
Female Urogenital HPI - General Chief complaint: Urogenital Stated complaint: Infection Time Seen by Provider: 07/30/19 19:30 Source: patient Mode of arrival: ambulatory Limitations: no limitations - History of Present Illness Initial comments: The patient is a 79-year-old female with history of recurrent urinary tract infections who presents to emergency room for abnormal labs. She states she received a call from her primary care office reporting that she needed to go back in to the emergency department as she did have a urine culture positive for ESBL. Patient was seen in the emergency department on July 27 after she was complaining of suprapubic abdominal pain and painful urination. Urine was mildly abnormal. The patient and the provider at that time opted to wait until the patient had a urine culture result before treating. Report did come back today which was sent to the primary care office. They called the patient to let her know that it was resistant to multiple oral antibiotics and the patient would require IV antibiotics. Patient reports to chills and recorded fevers. Denies hematuria. Does admit to increased frequency of voiding. Denies diarrhea, constipation, melanotic stools or hematochezia. She sees Dr. Pruett for her recurrent urinary tract infections. She denies any additional source of infection to include cough, headaches, nausea or vomiting. There are no other alleviating, precipitating or modifying factors - Related Data Home Medications Medication Instructions Recorded Confirmed Omeprazole [PriLOSEC] 20 mg PO BID 01/11/19 07/30/19 Mirabegron [Myrbetriq] 25 mg PO HS 02/11/19 07/30/19 Sennosides-Docusate Sodium 1 tab PO DAILY PRN 02/11/19 07/30/19 [Senokot-S] Bisacodyl [Dulcolax] 5 mg PO BID 02/19/19 07/30/19 Cholecalciferol [Vitamin D3 (25 2,000 unit PO DAILY 02/19/19 07/30/19 Mcg = 1000 Iu)] Lisinopril-Hctz 10-12.5 mg 1 tab PO DAILY 03/09/19 07/30/19 [Zestoretic 10-12.5] Warfarin [Coumadin] 2.5 mg PO [id number] 04/07/19 07/30/19 Carbidopa-Levodopa 25-100 mg 1 tab PO Q4H 07/30/19 07/30/19 [Sinemet 25-100 mg] Previous Rx's Medication Instructions Recorded Spironolactone [Aldactone] 25 mg PO DAILY tab 01/25/19 Allergies Allergy/AdvReac Type Severity Reaction Status Date / Time Influenza Virus Vaccines Allergy Swelling Verified 07/30/19 21:40 Iodinated Contrast Media Allergy Chest Pain Verified 07/30/19 21:40 [Iodinated Contrast- Oral and IV Dye] Penicillins Allergy Anaphylaxis Verified 07/30/19 21:40 Review of Systems ROS Statement: Those systems with pertinent positive or pertinent negative responses have been documented in the HPI. ROS Other: All systems not noted in ROS Statement are negative. Past Medical History Past Medical History: Asthma, Heart Failure, CVA/TIA, Deep Vein Thrombosis (DVT), GERD/Reflux, Hypertension, Memory Impairment, Musculoskeletal Disorder, Neurologic Disorder, Osteoarthritis (OA) Additional Past Medical History / Comment(s): Ulcerative colitis, di verticulitis, parkinson's disease, CVA which pt was unaware of having-showed on cat scan, several DVTs bilateral legs and pt states since she has had intermittent bilateral ankle edema, thrombophlebitis, PE-pt cannot recall laterallity, generalized arthritis, urinary leakage, a few UTIs, shingles History of Any Multi-Drug Resistant Organisms: ESBL Date of last positivie culture/infection: 07/27/19 ESBL E.coli MDRO Source:: Urine Past Surgical History: Appendectomy, Cholecystectomy, Hysterectomy, Orthopedic Surgery, Tubal Ligation Additional Past Surgical History / Comment(s): L shoulder injury with surgery to repair, removals of DVTs bilateral legs, cataract removal/lens implants, colonoscopies. Past Anesthesia/Blood Transfusion Reactions: Postoperative Nausea & Vomiting (PONV) Additional Past Anesthesia/Blood Transfusion Reaction / Comment(s): Pt received blood with hysterectomy without reaction. Past Psychological History: Anxiety Smoking Status: Never smoker Past Alcohol Use History: None Reported Past Drug Use History: None Reported - Past Family History Father Family Medical History: Asthma, Cancer, COPD Additional Family Medical History / Comment(s): Gallbladder cancer Mother Family Medical History: Myocardial Infarction ([place]) Additional Family Medical History / Comment(s): Mother of a [place] at the age of 48 yrs. Sister(s) Additional Family Medical History / Comment(s): Sister of a blood clot at age 38 yrs-pt cannot recall specifics. General Exam Limitations: no limitations General appearance: alert, in no apparent distress Head exam: Present: atraumatic, normocephalic, normal inspection Eye exam: Present: normal appearance, PERRL, EOMI. Absent: scleral icterus, conjunctival injection, periorbital swelling ENT exam: Present: normal exam, mucous membranes moist Neck exam: Present: normal inspection. Absent: tenderness, meningismus, lymphadenopathy Respiratory exam: Present: normal lung sounds bilaterally. Absent: respiratory distress, wheezes, rales, rhonchi, stridor Cardiovascular Exam: Present: regular rate, normal rhythm, normal heart sounds. Absent: systolic murmur, diastolic murmur, rubs, gallop, clicks GI/Abdominal exam: Present: soft, normal bowel sounds. Absent: distended, tenderness, guarding, rebound, rigid Extremities exam: Present: normal inspection, full ROM, normal capillary refill. Absent: tenderness, pedal edema, joint swelling, calf tenderness Back exam: Present: normal inspection Neurological exam: Present: alert, oriented X3, CN II-XII intact Psychiatric exam: Present: normal affect, normal mood Skin exam: Present: warm, dry, intact, normal color. Absent: rash Course Vital Signs 07/30/19 07/30/19 19:33 21:18 Temperature 97.5 F L 98.8 F Pulse Rate 70 65 Respiratory 18 18 Rate Blood Pressure 116/51 116/67 O2 Sat by Pulse 97 97 Oximetry Medical Decision Making - Medical Decision Making Upon arrival the patient is placed in room 2. A thorough history and physical exam was performed. I did review the patient's microbiology record. Urine culture shows E. coli and Providencia species which are resistant to all oral antibiotics. Because of this I did order laboratory studies. CBC is unremarkable. CMP shows an elevated creatinine of 1.1 from the patient's baseline of 0.8. I did obtain blood cultures from the patient's. I initiated her on meropenem as her infection is sensitive to this antibiotic. I call discuss case with Dr. Soriaon who accepted admission for the patient. The patient was transported to floor in stable condition - Lab Data Result diagrams: 08/03/19 07:15 08/03/19 07:15 Lab Results 07/30/19 07/30/19 07/30/19 Range/Units 19:51 19:51 20:31 WBC 5.8 (3.8-10.6) k/uL RBC 4.09 (3.80-5.40) m/uL Hgb 12.1 (11.4-16.0) gm/dL Hct 37.0 (34.0-46.0) % MCV 90.5 (80.0-100.0) fL MCH 29.6 (25.0-35.0) pg MCHC 32.8 (31.0-37.0) g/dL RDW 12.3 (11.5-15.5) % Plt Count 293 (150-450) k/uL Neutrophils % 61 % Lymphocytes % 30 % Monocytes % 5 % Eosinophils % 1 % Basophils % 1 % Neutrophils # 3.5 (1.3-7.7) k/uL Lymphocytes # 1.8 (1.0-4.8) k/uL Monocytes # 0.3 (0-1.0) k/uL Eosinophils # 0.1 (0-0.7) k/uL Basophils # 0.1 (0-0.2) k/uL PT (9.0-12.0) sec INR (<1.2) Sodium 137 (137-145) mmol/L Potassium 4.1 (3.5-5.1) mmol/L Chloride 104 (98-107) mmol/L Carbon Dioxide 23 (22-30) mmol/L Anion Gap 10 mmol/L BUN 42 H (7-17) mg/dL Creatinine 1.19 H (0.52-1.04) mg/dL Est GFR (CKD-EPI)AfAm 50 (>60 ml/min/1.73 sqM) Est GFR (CKD-EPI)NonAf 44 (>60 ml/min/1.73 sqM) Glucose 104 H (74-99) mg/dL Plasma Lactic Acid Abdiaziz 0.9 (0.7-2.0) mmol/L Calcium 9.2 (8.4-10.2) mg/dL Total Bilirubin 0.7 (0.2-1.3) mg/dL AST 20 (14-36) U/L ALT <6 (4-34) U/L Alkaline Phosphatase 67 (38-126) U/L Total Protein 6.9 (6.3-8.2) g/dL Albumin 4.2 (3.5-5.0) g/dL Urine Color Urine Appearance (Clear) Urine pH (5.0-8.0) Ur Specific [place] (1.001-1.035) Urine Protein (Negative) Urine Glucose (UA) (Negative) Urine Ketones (Negative) Urine Blood (Negative) Urine Nitrite (Negative) Urine Bilirubin (Negative) Urine Urobilinogen (<2.0) mg/dL Ur Leukocyte Esterase (Negative) Urine RBC (0-5) /hpf Urine WBC (0-5) /hpf Ur Squamous Epith Cells (0-4) /hpf Urine Bacteria (None) /hpf Influenza Type A RNA (Not Detectd) Influenza Type B (PCR) (Not Detectd) 07/31/19 07/31/19 07/31/19 Range/Units 00:35 06:50 06:50 WBC 4.7 (3.8-10.6) k/uL RBC 3.68 L (3.80-5.40) m/uL Hgb 11.5 (11.4-16.0) gm/dL Hct 33.8 L (34.0-46.0) % MCV 91.7 (80.0-100.0) fL MCH 31.1 (25.0-35.0) pg MCHC 33.9 (31.0-37.0) g/dL RDW 12.1 (11.5-15.5) % Plt Count 233 (150-450) k/uL Neutrophils % 45 % Lymphocytes % 43 % Monocytes % 6 % Eosinophils % 3 % Basophils % 1 % Neutrophils # 2.1 (1.3-7.7) k/uL Lymphocytes # 2.0 (1.0-4.8) k/uL Monocytes # 0.3 (0-1.0) k/uL Eosinophils # 0.1 (0-0.7) k/uL Basophils # 0.0 (0-0.2) k/uL PT (9.0-12.0) sec INR (<1.2) Sodium 137 (137-145) mmol/L Potassium 3.6 (3.5-5.1) mmol/L Chloride 105 (98-107) mmol/L Carbon Dioxide 27 (22-30) mmol/L Anion Gap 5 mmol/L BUN 34 H (7-17) mg/dL Creatinine 0.86 (0.52-1.04) mg/dL Est GFR (CKD-EPI)AfAm 75 (>60 ml/min/1.73 sqM) Est GFR (CKD-EPI)NonAf 65 (>60 ml/min/1.73 sqM) Glucose 87 (74-99) mg/dL Plasma Lactic Acid Abdiaziz (0.7-2.0) mmol/L Calcium 8.9 (8.4-10.2) mg/dL Total Bilirubin (0.2-1.3) mg/dL AST (14-36) U/L ALT (4-34) U/L Alkaline Phosphatase (38-126) U/L Total Protein (6.3-8.2) g/dL Albumin (3.5-5.0) g/dL Urine Color Urine Appearance (Clear) Urine pH (5.0-8.0) Ur Specific [place] (1.001-1.035) Urine Protein (Negative) Urine Glucose (UA) (Negative) Urine Ketones (Negative) Urine Blood (Negative) Urine Nitrite (Negative) Urine Bilirubin (Negative) Urine Urobilinogen (<2.0) mg/dL Ur Leukocyte Esterase (Negative) Urine RBC (0-5) /hpf Urine WBC (0-5) /hpf Ur Squamous Epith Cells (0-4) /hpf Urine Bacteria (None) /hpf Influenza Type A RNA Not Detected (Not Detectd) Influenza Type B (PCR) Not Detected (Not Detectd) 07/31/19 07/31/19 08/01/19 Range/Units 06:50 18:30 06:53 WBC (3.8-10.6) k/uL RBC (3.80-5.40) m/uL Hgb (11.4-16.0) gm/dL Hct (34.0-46.0) % MCV (80.0-100.0) fL MCH (25.0-35.0) pg MCHC (31.0-37.0) g/dL RDW (11.5-15.5) % Plt Count (150-450) k/uL Neutrophils % % Lymphocytes % % Monocytes % % Eosinophils % % Basophils % % Neutrophils # (1.3-7.7) k/uL Lymphocytes # (1.0-4.8) k/uL Monocytes # (0-1.0) k/uL Eosinophils # (0-0.7) k/uL Basophils # (0-0.2) k/uL PT 37.0 H 39.1 H (9.0-12.0) sec INR 3.8 H 4.1 H (<1.2) Sodium (137-145) mmol/L Potassium (3.5-5.1) mmol/L Chloride (98-107) mmol/L Carbon Dioxide (22-30) mmol/L Anion Gap mmol/L BUN (7-17) mg/dL Creatinine (0.52-1.04) mg/dL Est GFR (CKD-EPI)AfAm (>60 ml/min/1.73 sqM) Est GFR (CKD-EPI)NonAf (>60 ml/min/1.73 sqM) Glucose (74-99) mg/dL Plasma Lactic Acid Abdiaziz (0.7-2.0) mmol/L Calcium (8.4-10.2) mg/dL Total Bilirubin (0.2-1.3) mg/dL AST (14-36) U/L ALT (4-34) U/L Alkaline Phosphatase (38-126) U/L Total Protein (6.3-8.2) g/dL Albumin (3.5-5.0) g/dL Urine Color Light Yellow Urine Appearance Clear (Clear) Urine pH 5.5 (5.0-8.0) Ur Specific [place] 1.008 (1.001-1.035) Urine Protein Negative (Negative) Urine Glucose (UA) Negative (Negative) Urine Ketones Negative (Negative) Urine Blood Negative (Negative) Urine Nitrite Negative (Negative) Urine Bilirubin Negative (Negative) Urine Urobilinogen <2.0 (<2.0) mg/dL Ur Leukocyte Esterase Small H (Negative) Urine RBC <1 (0-5) /hpf Urine WBC 1 (0-5) /hpf Ur Squamous Epith Cells <1 (0-4) /hpf Urine Bacteria Rare H (None) /hpf Influenza Type A RNA (Not Detectd) Influenza Type B (PCR) (Not Detectd) 08/02/19 08/02/19 08/02/19 Range/Units 06:43 06:43 06:43 WBC 6.5 (3.8-10.6) k/uL RBC 3.96 (3.80-5.40) m/uL Hgb 12.5 (11.4-16.0) gm/dL Hct 35.8 (34.0-46.0) % MCV 90.3 (80.0-100.0) fL MCH 31.5 (25.0-35.0) pg MCHC 34.8 (31.0-37.0) g/dL RDW 12.0 (11.5-15.5) % Plt Count 243 (150-450) k/uL Neutrophils % 53 % Lymphocytes % 34 % Monocytes % 7 % Eosinophils % 4 % Basophils % 1 % Neutrophils # 3.4 (1.3-7.7) k/uL Lymphocytes # 2.2 (1.0-4.8) k/uL Monocytes # 0.5 (0-1.0) k/uL Eosinophils # 0.2 (0-0.7) k/uL Basophils # 0.0 (0-0.2) k/uL PT 29.0 H (9.0-12.0) sec INR 3.0 H (<1.2) Sodium 136 L (137-145) mmol/L Potassium 4.0 (3.5-5.1) mmol/L Chloride 101 (98-107) mmol/L Carbon Dioxide 30 (22-30) mmol/L Anion Gap 5 mmol/L BUN 23 H (7-17) mg/dL Creatinine 0.75 (0.52-1.04) mg/dL Est GFR (CKD-EPI)AfAm 88 (>60 ml/min/1.73 sqM) Est GFR (CKD-EPI)NonAf 76 (>60 ml/min/1.73 sqM) Glucose 84 (74-99) mg/dL Plasma Lactic Acid Abdiaziz (0.7-2.0) mmol/L Calcium 9.1 (8.4-10.2) mg/dL Total Bilirubin (0.2-1.3) mg/dL AST (14-36) U/L ALT (4-34) U/L Alkaline Phosphatase (38-126) U/L Total Protein (6.3-8.2) g/dL Albumin (3.5-5.0) g/dL Urine Color Urine Appearance (Clear) Urine pH (5.0-8.0) Ur Specific [place] (1.001-1.035) Urine Protein (Negative) Urine Glucose (UA) (Negative) Urine Ketones (Negative) Urine Blood (Negative) Urine Nitrite (Negative) Urine Bilirubin (Negative) Urine Urobilinogen (<2.0) mg/dL Ur Leukocyte Esterase (Negative) Urine RBC (0-5) /hpf Urine WBC (0-5) /hpf Ur Squamous Epith Cells (0-4) /hpf Urine Bacteria (None) /hpf Influenza Type A RNA (Not Detectd) Influenza Type B (PCR) (Not Detectd) 08/03/19 08/03/19 08/03/19 Range/Units 07:15 07:15 07:15 WBC 7.1 (3.8-10.6) k/uL RBC 4.27 (3.80-5.40) m/uL Hgb 12.8 (11.4-16.0) gm/dL Hct 38.4 (34.0-46.0) % MCV 90.1 (80.0-100.0) fL MCH 30.0 (25.0-35.0) pg MCHC 33.2 (31.0-37.0) g/dL RDW 12.1 (11.5-15.5) % Plt Count 246 (150-450) k/uL Neutrophils % 53 % Lymphocytes % 35 % Monocytes % 6 % Eosinophils % 4 % Basophils % 1 % Neutrophils # 3.8 (1.3-7.7) k/uL Lymphocytes # 2.5 (1.0-4.8) k/uL Monocytes # 0.4 (0-1.0) k/uL Eosinophils # 0.3 (0-0.7) k/uL Basophils # 0.1 (0-0.2) k/uL PT 25.7 H (9.0-12.0) sec INR 2.7 H (<1.2) Sodium 134 L (137-145) mmol/L Potassium 4.2 (3.5-5.1) mmol/L Chloride 100 (98-107) mmol/L Carbon Dioxide 27 (22-30) mmol/L Anion Gap 7 mmol/L BUN 30 H (7-17) mg/dL Creatinine 0.73 (0.52-1.04) mg/dL Est GFR (CKD-EPI)AfAm >90 (>60 ml/min/1.73 sqM) Est GFR (CKD-EPI)NonAf 79 (>60 ml/min/1.73 sqM) Glucose 88 (74-99) mg/dL Plasma Lactic Acid Abdiaziz (0.7-2.0) mmol/L Calcium 9.2 (8.4-10.2) mg/dL Total Bilirubin (0.2-1.3) mg/dL AST (14-36) U/L ALT (4-34) U/L Alkaline Phosphatase (38-126) U/L Total Protein (6.3-8.2) g/dL Albumin (3.5-5.0) g/dL Urine Color Urine Appearance (Clear) Urine pH (5.0-8.0) Ur Specific [place] (1.001-1.035) Urine Protein (Negative) Urine Glucose (UA) (Negative) Urine Ketones (Negative) Urine Blood (Negative) Urine Nitrite (Negative) Urine Bilirubin (Negative) Urine Urobilinogen (<2.0) mg/dL Ur Leukocyte Esterase (Negative) Urine RBC (0-5) /hpf Urine WBC (0-5) /hpf Ur Squamous Epith Cells (0-4) /hpf Urine Bacteria (None) /hpf Influenza Type A RNA (Not Detectd) Influenza Type B (PCR) (Not Detectd) Disposition Clinical Impression: Urinary tract infection, UTI due to extended-spectrum beta lactamase (ESBL) producing Escherichia coli Disposition: ADMITTED IP TO THIS HOSP Condition: Stable Is patient prescribed a controlled substance at d/c from ED?: No Decision to Admit Reason: Admit from EC Decision Date: 07/30/19 Decision Time: 21:20
[2019-07-30] MEDS: NON FORMULARY DRUG (Mirabegron [Myrbetriq] 25 MG) PO SCH (23:22)
[2019-07-31] MEDS: ACETAMINOPHEN TAB 325 MG TAB PO PRN ×3 (00:07→22:32)
[2019-07-31] MEDS ORDERED: SENNOSIDES-DOCUSATE SODIUM 1 EACH TAB PO PRN (00:11)
[2019-07-31] MEDS ORDERED: WARFARIN 2.5 MG TAB PO SCH (00:30)
[2019-07-31] MEDS: CARBIDOPA-LEVODOPA 25-100 MG 1 EACH TAB PO SCH ×6 (00:31→21:36)
[2019-07-31] MEDS: SODIUM CHLORIDE 0.9% 1,000 ML IV SCH ×2 (00:33→11:23)
[2019-07-31] MEDS: MEROPENEM 1 GM in SODIUM CHLORIDE 0.9% 100 ML IVPB SCH ×3 (04:32→22:49)
[2019-07-31 07:32] LABS: Basophils % (A) 1 %; Eosinophils # (A) 0.1 k/uL (0-0.7); Eosinophils % (A) 3 %; HCT 33.8 % (34.0-46.0); HGB 11.5 gm/dL (11.4-16.0); Lymphocytes % (A) 43 %; MCH 31.1 pg (25.0-35.0); MCHC 33.9 g/dL (31.0-37.0); MCV 91.7 fL (80.0-100.0); Mean Platelet Volume 7.3; Monocytes # (A) 0.3 k/uL (0-1.0); Monocytes % (A) 6 %; Neutrophils # (A) 2.1 k/uL (1.3-7.7); Neutrophils % (A) 45 %; Platelet Count 233 k/uL (150-450); RBC 3.68 m/uL (3.80-5.40); RDW 12.1 % (11.5-15.5); WBC 4.7 k/uL (3.8-10.6)
[2019-07-31 07:47] LABS: Calcium 8.9 mg/dL (8.4-10.2); Potassium 3.6 mmol/L (3.5-5.1)
[2019-07-31 07:50] LABS: INR 3.8 (<1.2)
[2019-07-31] MEDS: DOXYCYCLINE 100 MG CAP PO SCH ×2 (08:31→21:37)
[2019-07-31] MEDS: SPIRONOLACTONE 25 MG TAB PO SCH (08:31)
[2019-07-31] MEDS: PANTOPRAZOLE 40 MG TABLET PO SCH ×2 (08:31→21:36)
[2019-07-31] MEDS: BISACODYL 5 MG TABLET.DR PO SCH ×2 (08:31→21:36)
[2019-07-31] MEDS: CHOLECALCIFEROL 1,000 UNIT TAB PO SCH (08:31)
[2019-07-31] MEDS: LISINOPRIL-HCTZ 10-12.5 MG 1 EACH TAB PO SCH (08:32)
--- NOTE | 2019-07-31 10:00 | HP ---
HISTORY AND PHYSICAL DATE OF SERVICE: 07/30/2019 CHIEF COMPLAINT: ESBL E coli. HISTORY OF PRESENT ILLNESS: This 79-year-old woman with a past medical history of multiple medical problems was recently admitted with acute UTI with dehydration. The patient improved significantly. Patient discharged to [facility] on the [place]. Because of the ESBL E coli, the patient was asked to come back to the hospital to obtain PICC line and IV antibiotics also. There is no history of fever, rigors or chills. No history of headache, loss of consciousness, seizures, chest pain, palpitations, hematochezia or melena at this time. PAST MEDICAL HISTORY: Asthma, CHF, DVT, GERD, hypertension, memory impairment, ulcerative colitis, ESBL E coli. MEDICATIONS: Prior to admission home medications are: 1. Coumadin 2.5 mg Friday, Friday, Friday, , Friday, Friday. 2. Aldactone 25 mg p.o. daily. 3. Senokot-S 1 tablet p.o. daily p.r.n. 4. Prilosec 20 mg p.o. b.i.d. 5. Myrbetriq 25 mg q.h.s. 6. Zestoretic 1 tablet p.o. daily. 7. Monodox 100 mg p.o. b.i.d. 8. Vitamin D3 2000 daily. 9. Carbidopa/L-dopa 1 tablets q.4h. 10.Dulcolax 5 mg p.o. b.i.d. ALLERGIES: INFLUENZA, IODINATED CONTRAST DYES, PENICILLIN. FAMILY HISTORY: History of asthma, cancer, COPD, gallbladder cancer. SOCIAL HISTORY: No history of smoking. No history of alcohol intake. REVIEW OF SYSTEMS: ENT: Diminished vision. Diminished hearing. CARDIOVASCULAR: No angina or palpitations. RESPIRATIONS: No cough or hemoptysis. GI no nausea, no vomiting, diarrhea. no dysuria. NERVOUS SYSTEM: No numbness or weakness. ALLERGY/IMMUNOLOGY: No asthma or hayfever. MUSCULOSKELETAL as mentioned earlier. HEMATOLOGY/ONCOLOGY: No history of anemia. ENDOCRINE: No history of diabetes or hypothyroidism. CONSTITUTIONAL: As mentioned earlier. DERMATOLOGY: Negative. RHEUMATOLOGY negative. PSYCHIATRY as mentioned earlier. PHYSICAL EXAMINATION: Alert and oriented x3. Pulse is 71, blood pressure 160/79, respirations 18, temperature 97.8, pulse ox 96% on room air. HEENT: Conjunctivae normal. NECK: No JVD. CARDIOVASCULAR: S1, S2 muffled. RESPIRATORY: Breath sounds diminished in the bases. No rhonchi. No crackles. ABDOMEN: Soft, nontender. No mass palpable. LEGS: No edema. No swelling. NERVOUS SYSTEM: Higher functions as mentioned earlier. Moves all four limbs. No focal motor or sensory deficits. Lymphatics: No lymph nodes palpable in the neck, axillae or groin. SKIN: No ulcer, no rashes and no bleeding. JOINTS: No active deforming arthropathy. LABS: CBC within normal limits. Creatinine is 1.19. The baseline is 0.83. ASSESSMENT: 1. Urinary tract infection with ESBL E coli and as well as Providencia species. 2. History of asthma. 3. History of congestive heart failure with chronic diastolic dysfunction, ejection fraction 55-60 percent. 4. History of cerebrovascular accident, transient ischemic attack. 5. History of deep vein thrombosis. 6. History of gastroesophageal reflux disease. 7. History of hypertension. 8. History of memory impairment. 9. History of degenerative joint disease. 10.History of ulcerative colitis. 11.History of diverticulitis. 12.History of Parkinson's disease. 13.History of cerebrovascular incident. 14.History of pulmonary embolism. 15.History of shingles. 16.History ESBL E coli. 17.History of cholecystectomy. 18.History of anxiety. 19.Gait dysfunction. 20.Obesity with body mass index of 32.8. 21.FULL CODE. RECOMMENDATIONS AND DISCUSSION: In this 79-year-old woman who presented with multiple complex medical issues, at this time, I recommend to continue current medications, management and symptomatic treatment. PICC line insertion. IV antibiotics. Infectious Disease evaluation. Resume the home medications. Prognosis guarded. Further recommendations to follow. A copy of dictation is being forwarded to Dr. Benitez who is the primary physician. MMODL / IJN: [id number] /
[2019-07-31] MEDS ORDERED: WARFARIN 0.5 MG TAB PO ONE (18:00)
[2019-07-31 18:46] LABS: Appearance,Urine Clear (Clear); Bacteria,Urine Rare /hpf; Bilirubin,Urine Negative (Negative); Blood,Urine Negative (Negative); Color,Urine Light Yellow; Glucose,Urine (UA) Negative (Negative); Ketones,Urine Negative (Negative); Leukocyte Esterase,Urine Small (Negative); Nitrite,Urine Negative (Negative); PH, Urine 5.5 (5.0-8.0); Protein,Urine Negative (Negative); RBC,Urine <1 /hpf (0-5); Specific Gravity,Urine 1.008 (1.001-1.035); Squamous Epithelial Cell,Urine <1 /hpf (0-4); Urobilinogen,Urine <2.0 mg/dL (<2.0); WBC,Urine 1 /hpf (0-5)
--- NOTE | 2019-07-31 19:08 | PN ---
PROGRESS NOTE DATE OF SERVICE: 07/31/2019 This 79-year-old woman was admitted with ESBL E coli UTI, is being closely monitored. The patient has been admitted for insertion of a med line and completion of course of IV antibiotics in the F. PAST MEDICAL HISTORY: Reviewed. PHYSICAL EXAM: Patient is alert, oriented x3. Pulse 64, blood pressure 127/71, respiration 16, temperature 97.4, pulse ox 98% on room air. HEENT: Conjunctivae normal. Oral mucosa moist. NECK: No jugular venous distention. No lymph node enlargement. CARDIOVASCULAR: S1, S2. RESPIRATORY: Diminished breath sounds at the bases. Scattered rhonchi, no crackles. ABDOMEN: Soft, nontender. LEGS: No edema, no swelling. NERVOUS SYSTEM: Diffusely weak. LABS: INR 3.8. Flu is negative. ASSESSMENT: 1. Urinary tract infection with ESBL E coli and as well as Proteus species. 2. History of asthma. 3. Mild Coumadin coagulopathy. 4. History of congestive heart failure with chronic diastolic dysfunction, ejection fraction 50-60%. 5. History of cerebrovascular accident, transient ischemic attack. 6. History of deep vein thrombosis. 7. History of gastroesophageal reflux disease. 8. History of hypertension. 9. History of memory impairment. 10.History of degenerative joint disease. 11.History of ulcerative colitis. 12.History of diverticulitis. 13.History of Parkinson's disease. 14.History of cerebrovascular accident. 15.History of pulmonary embolism. 16.History of shingles. 17.History os ESBL E coli. 18.History of cholecystectomy. 19.History of anxiety. 20.History of gait dysfunction. 21.Obesity with body mass index of 32.8. 22.FULL CODE. RECOMMENDATIONS AND DISCUSSION: In this 79-year-old woman who presented with multiple complex medical issues, we will monitor the patient closely, continue the current medications, continue symptomatic treatment. Otherwise, at this time I recommend continue with IV antibiotics, Infectious Disease evaluation, possible med line catheter insertion and subsequently return to the intermediate. Further recommendations to follow. MMODL / IJN: [id number] /
[2019-07-31] MEDS: NON FORMULARY DRUG (Mirabegron [Myrbetriq] 25 MG) PO SCH (21:37)
--- NOTE | 2019-07-31 23:06 | CONS ---
CONSULTATION DATE OF SERVICE: 07/31/2019. REASON FOR CONSULTATION: ESBL urinary tract infection. HISTORY OF PRESENT ILLNESS: The patient is a 79-year-old female with a past medical history significant for recurrent urinary tract infection. She has ESBL E coli, multiple times in her urine. The patient was recently evaluated in the [facility] ER on July 24, 2019 when the patient presented with urinary symptoms mostly with frequency with small amount of urine, some discomfort and flank pain. The patient apparently was told that she did have no UTI and was subsequently discharged home. However, the urine culture came back positive for ESBL E coli. The patient was asked to come back to the hospital because of the positive urine culture. The patient has been admitted to the hospital. She was started on meropenem. Infectious Disease was consulted for further recommendations regarding antibiotic therapy. The patient this admission so far is afebrile and white count is normal. Unfortunately no UA or culture has been done on this admission. The patient reporting improvement in her symptoms since admission to the hospital. Currently denies having any chest pain or shortness of breath or cough. No nausea, vomiting. No abdominal pain. No diarrhea. REVIEW OF SYSTEMS: Positive points have been mentioned in HPI. Rest of systems are negative. PAST MEDICAL HISTORY: Asthma, heart failure with CVA, TIA, and DVT, gastroesophageal reflux disease, hypertension, osteoarthritis, ulcerative colitis, diverticulitis, and recent UTI. PAST SURGICAL HISTORY: Appendectomy, cholecystectomy, hysterectomy, tubal ligation. SOCIAL HISTORY: No history of smoking, drinking or drug use. FAMILY HISTORY: Father with history of asthma and cancer. Mother history of [place]. ALLERGIES: TO PENICILLIN AND CONTRAST DYE. MEDICATIONS: The patient is currently on Tylenol, Dulcolax, doxycycline, meropenem 1 g q.8 hours, Marcaine, Protonix, Senokot, Aldactone and Coumadin. PHYSICAL EXAMINATION: Blood pressure is 127/71 with a pulse of 54, temperature 97.5. She is 92% on room air. General description is an elderly female, lying in bed in no distress. No tachypnea or accessory muscles of respiration use. HEENT: Examination shows no pallor or scleral icterus. Oral mucosa membranes are dry. No pharyngeal erythema or thrush. Neck: Trachea central. No thyromegaly. Lungs unlabored breathing, clear to auscultation anteriorly. No wheeze or crackles. Heart S1, S2. Regular rate and rhythm. No S3. No S4. ABDOMEN: Soft. No tenderness. No guarding or rigidity. EXTREMITIES are no edema of the feet. Skin examination: No rash or mass palpable. NEUROLOGICAL: Patient is awake, alert, oriented times three. Mood and affect normal. LABS: Hemoglobin 11.5, white count 4.7, BUN of 34, creatinine 0.86. Influenza serology was negative. Urine culture done on July 27 did grow more than 100,000 colonies of ESBL E coli. However, the patient did have a negative UA on July 27. DIAGNOSTIC IMPRESSION AND PLAN: Patient admitted to the hospital with generalized weakness, no energy. This patient UA done on July 27 was negative. Blood culture positive for ESBL E coli, possible colonization versus contamination as the patient is currently not running any fever. Did not have any elevated white count. PLAN: 1. We will repeat a UA and cultures. 2. May continue meropenem 1 gram every 8 hours for now while waiting for repeat cultures to finalize. 3. We will follow up on clinical condition and culture to further adjust medication if needed. Thank you for this consultation. We will follow this patient along with you. MMODL / IJN: [id number] / KARMEN
[2019-08-01] MEDS: CARBIDOPA-LEVODOPA 25-100 MG 1 EACH TAB PO SCH ×6 (00:22→21:00)
[2019-08-01] MEDS: ACETAMINOPHEN TAB 325 MG TAB PO PRN ×2 (04:57→21:58)
[2019-08-01] MEDS: MEROPENEM 1 GM in SODIUM CHLORIDE 0.9% 100 ML IVPB SCH ×2 (05:00→15:23)
[2019-08-01 07:53] LABS: INR 4.1 (<1.2); Prothrombin Time 39.1 sec (9.0-12.0)
[2019-08-01] MEDS: LISINOPRIL-HCTZ 10-12.5 MG 1 EACH TAB PO SCH (09:35)
[2019-08-01] MEDS: BISACODYL 5 MG TABLET.DR PO SCH ×2 (09:36→21:00)
[2019-08-01] MEDS: DOXYCYCLINE 100 MG CAP PO SCH (09:36)
[2019-08-01] MEDS: SPIRONOLACTONE 25 MG TAB PO SCH (09:36)
[2019-08-01] MEDS: PANTOPRAZOLE 40 MG TABLET PO SCH ×2 (09:36→21:00)
[2019-08-01] MEDS: CHOLECALCIFEROL 1,000 UNIT TAB PO SCH (09:36)
--- NOTE | 2019-08-01 16:01 | XR ---
EXAMINATION TYPE: XR chest 1V portable DATE OF EXAM: 08/01/2019 COMPARISON: 06/26/2019 HISTORY: Syncope TECHNIQUE: FINDINGS: Heart is normal. Lungs are clear. Diaphragm is normal. Bony thorax appears normal. IMPRESSION: No active cardiopulmonary disease. Normal heart. No change.
[2019-08-01] MEDS ORDERED: WARFARIN 0.5 MG TAB PO ONE (18:00)
--- NOTE | 2019-08-01 18:32 | PN ---
PROGRESS NOTE DATE OF SERVICE: 08/01/2019 This 79-year-old woman was admitted with UTI. The patient apparently had ESBL UTI treated with Invanz. Subsequently, patient was sent home on doxycycline. The patient had diminished energy and weakness. Repeat urine culture showed ESBL E coli. The patient was requested to come to the hospital and was admitted for further evaluation. Meropenem was initiated at this time. The INR is elevated. The patient has some mild Coumadin coagulopathy also. The pharmacy dosing the Coumadin. The patient did not receive any Coumadin yesterday. PAST MEDICAL HISTORY: Reviewed. REVIEW OF SYSTEMS: CARDIOVASCULAR SYSTEM: No angina, palpitations. RESPIRATORY SYSTEM: As mentioned earlier. GI no nausea or vomiting. no dysuria. Nervous system: No numbness or weakness. CURRENT MEDICATIONS: Reviewed and include: 1. Tylenol p.r.n. 2. Dulcolax 5 mg p.o. b.i.d. 3. Sinemet 25/100 one p.o. q.4h p.r.n. 4. Vitamin D3 2000 daily. 5. Zestoretic 10/12.5 mg p.o. 6. Meropenem 1 g IV q.8h. 7. Narcan 0.2 q.2 p.r.n. 8. Myrbetriq 25 mg q.h.s. 9. Protonix 40 mg p.o. b.i.d. 10.Senokot-S 1 tablet p.o. daily. 11.Aldactone 25 mg p.o. daily. PHYSICAL EXAMINATION: Patient is alert, oriented x3. The pulse is 66. Blood pressure 117/70, respiration 16, temperature 97.8, pulse ox 94% on room air. HEENT is conjunctivae normal. Oral mucosa moist. Neck is no jugular venous distention. No carotid bruit. No lymph node enlargement. Cardiovascular systems: S1, S2 muffled. Respirations: Breath sounds diminished in the bases. A few scattered rhonchi and crackles. ABDOMEN: Soft, nontender. No mass palpable. LEGS: No edema. No swelling. NERVOUS SYSTEM: Diffusely weak. LABS: At this time shows WBC 4.2, hemoglobin 11.5, INR 3.8, 4.1. UA noted. ASSESSMENT: 1. Recurrent urinary tract infection with ESBL E coli as well as Proteus species with failure of outpatient treatment. 2. History of asthma. 3. Coumadin coagulopathy. 4. Coumadin monitoring. 5. History of congestive heart failure with chronic diastolic dysfunction, ejection fraction 50% to 60%. 6. History of cerebrovascular accident, transient ischemic attack. 7. History of deep vein thrombosis. 8. History of gastroesophageal reflux disease. 9. History of hypertension. 10.History of memory impairment. 11.History of degenerative joint disease. 12.History of ulcerative colitis. 13.History of diverticulitis. 14.History of Parkinson's disease. 15.History of cerebrovascular accident. 16.History of pulmonary embolism. 17.History of shingles. 18.History of ESBL E coli. 19.History of cholecystectomy. 20.History of anxiety. 21.History of gait dysfunction. 22.Obesity with body mass index of 32.8. 23.FULL CODE. RECOMMENDATIONS AND DISCUSSION: This 79-year-old woman who presented with multiple complex medical issues, we will monitor the patient closely. Continue the meropenem at this time. Otherwise, Dr. Alas has evaluated the patient and recommended midline insertion and as well as prolonged IV antibiotic treatment possibly in rehab. Otherwise PT/INR is elevated at this time. I would recommend a chest x-ray to rule out the possibility of any active CHF on a stat basis. Otherwise, I would also recommend to monitor the PT, INR closely. The patient has significant apparent history of pulmonary embolism, so we will defer vitamin K at this time and continue to monitor PT, INR until it is less than around 1.5, or acceptable to interventional radiology so that the midline can be inserted. I would also recommend repeat labs and the blood cultures are pending at this time. Guarded prognosis because of multiple complex medical issues. See orders for details. Further recommendations to follow. MMODL / IJN: [id number] /
[2019-08-01] MEDS: NON FORMULARY DRUG (Mirabegron [Myrbetriq] 25 MG) PO SCH (21:00)
--- NOTE | 2019-08-01 23:50 | PN ---
PROGRESS NOTE DATE OF SERVICE: 08/01/2019. REASON FOR FOLLOWUP: ESBL E. coli UTI. INTERVAL HISTORY: The patient is currently afebrile. The patient has been breathing comfortably. The patient denies having any chest pain or any cough. No further nausea, vomiting, abdominal pain, no diarrhea. PHYSICAL EXAMINATION: Blood pressure is 117/73 with a pulse of 73. Temperature 97.8. She is 95% on room air. General description is an elderly female, lying in bed in no distress. Respiratory system: Unlabored breathing, clear to auscultation anteriorly. Heart S1, S2. Regular rate and rhythm. ABDOMEN: Soft. No tenderness. Extremities: No edema of the feet. LABS: Hemoglobin 11.1, white count 4.7, BUN of 34, creatinine 0.68. UA obtained yesterday is essentially negative. DIAGNOSTIC IMPRESSION AND PLAN: Patient with urinary symptoms, feeling weak with urine culture done recently positive for ESBL E coli. However, the patient corresponding urinalysis was negative. Patient repeat urinalysis this admission is negative, not running any fever and did have elevated white count, possible viral status adequately treated. No need for a PICC line or outpatient antibiotic therapy. Meropenem can be safely discontinued at time of discharge. MMODL / IJN: [id number] /
[2019-08-02] MEDS: MEROPENEM 1 GM in SODIUM CHLORIDE 0.9% 100 ML IVPB SCH ×3 (00:43→14:59)
[2019-08-02] MEDS: CARBIDOPA-LEVODOPA 25-100 MG 1 EACH TAB PO SCH ×7 (00:43→23:21)
[2019-08-02 07:31] LABS: Basophils % (A) 1 %; Eosinophils # (A) 0.2 k/uL (0-0.7); Eosinophils % (A) 4 %; HCT 35.8 % (34.0-46.0); HGB 12.5 gm/dL (11.4-16.0); Lymphocytes # (A) 2.2 k/uL (1.0-4.8); Lymphocytes % (A) 34 %; MCH 31.5 pg (25.0-35.0); MCHC 34.8 g/dL (31.0-37.0); MCV 90.3 fL (80.0-100.0); Mean Platelet Volume 7.2; Monocytes # (A) 0.5 k/uL (0-1.0); Monocytes % (A) 7 %; Neutrophils # (A) 3.4 k/uL (1.3-7.7); Neutrophils % (A) 53 %; Platelet Count 243 k/uL (150-450); RBC 3.96 m/uL (3.80-5.40); WBC 6.5 k/uL (3.8-10.6)
[2019-08-02 07:49] LABS: Calcium 9.1 mg/dL (8.4-10.2)
[2019-08-02] MEDS: BISACODYL 5 MG TABLET.DR PO SCH ×2 (09:22→20:15)
[2019-08-02] MEDS: LISINOPRIL-HCTZ 10-12.5 MG 1 EACH TAB PO SCH (09:22)
[2019-08-02] MEDS: CHOLECALCIFEROL 1,000 UNIT TAB PO SCH (09:22)
[2019-08-02] MEDS: SPIRONOLACTONE 25 MG TAB PO SCH (09:23)
[2019-08-02] MEDS: PANTOPRAZOLE 40 MG TABLET PO SCH ×2 (09:23→20:15)
--- NOTE | 2019-08-02 17:35 | PN ---
PROGRESS NOTE DATE OF SERVICE: 08/02/2019 REASON FOR FOLLOWUP: Urinary tract infection. INTERVAL HISTORY: The patient is currently afebrile. The patient has been breathing comfortably. The patient denies having any chest pain, shortness of breath or cough. No abdominal pain or diarrhea. PHYSICAL EXAMINATION: Blood pressure 145/82 with a pulse of 68, temperature 98.3. She is 96% on room air. General description is an elderly female up in the chair in no distress. Respiratory system: Unlabored breathing, clear to auscultation anteriorly. Heart S1, S2. Regular rate and rhythm. Abdomen soft, no tenderness. Extremities: No edema of the feet. LABS: Hemoglobin is 12.5, white count 6.5. BUN of 23, creatinine 0.75. Blood culture has been negative. DIAGNOSTIC IMPRESSION AND PLAN: Patient with admission to hospital with concern for possible urinary tract infection. However, the patient has mild urinary symptoms, but UA is not positive. Culture repeat has been negative so far. She got about 3 days of antibiotics, should be more than enough for a simple cystitis with no fever, no elevated white count, no bacteremia. No need for antibiotic on discharge. This has been explained in detail to the patient as well as to the family member in layman terms. Questions were answered. MMODL / IJN: [id number] /
[2019-08-02] MEDS ORDERED: WARFARIN 2 MG TAB PO ONE (20:00)
[2019-08-02] MEDS: NON FORMULARY DRUG (Mirabegron [Myrbetriq] 25 MG) PO SCH (20:15)
[2019-08-02] MEDS: ACETAMINOPHEN TAB 325 MG TAB PO PRN (20:17)
--- NOTE | 2019-08-03 00:53 | PN ---
PROGRESS NOTE DATE OF SERVICE: 08/02/2019 This 79-year-old woman who presented with UTI had a course of Invanz at this time. No chest pain. No palpitations. No fever. The UA is benign. The patient is complaining of generalized tiredness, weakness. Dr. Alas is recommending no further course of antibiotic after discharge. PHYSICAL EXAMINATION: Alert and oriented x3. The pulse is 72, blood pressure 121/64, respiration 18, temperature 98.3, pulse ox 96% on room air. HEENT: Conjunctivae normal. NECK: No jugular venous distention. CARDIOVASCULAR SYSTEM: S1, S2 muffled. RESPIRATORY SYSTEM: Breath sounds diminished at the bases. A few scattered rhonchi. ABDOMEN: Soft, non-tender. LEGS: No edema. No swelling. NERVOUS SYSTEM: No focal deficit. LABS: INR is 3. CBC within normal limits. ASSESSMENT: 1. Recurrent urinary tract infection with extended-spectrum beta-lactamase Escherichia coli with proteus species with failure of outpatient treatment. 2. History of asthma. 3. Generalized gait dysfunction and myopathy. 4. Coumadin coagulopathy. 5. Coumadin monitoring. 6. History of congestive heart failure with chronic diastolic dysfunction, ejection fraction 50% to 60%. 7. History of cerebrovascular accident, transient ischemic attack. 8. History of deep vein thrombosis. 9. History of gastroesophageal reflux disease. 10.Hypertension. 11.Memory impairment. 12.History of degenerative joint disease. 13.History of ulcerative colitis. 14.History of diverticulitis. 15.History of Parkinson's disease. 16.History of cerebrovascular accident. 17.History of pulmonary embolus. 18.History of shingles. 19.History of extended-spectrum beta-lactamase Escherichia coli. 20.History of cholecystectomy. 21.History of anxiety. 22.History of gait dysfunction. 23.History of obesity with body mass index of 32.8. 24.FULL CODE. RECOMMENDATIONS AND DISCUSSION: I recommend to continue current medications, continue with the monitoring, symptomatic treatment. PT/OT evaluation. Continue the rest of the medications. Antibiotics per Dr. Alas. Guarded prognosis. Further recommendations to follow. MMODL / IJN: [id number] /
[2019-08-03 02:11] VITALS: RESP 16
[2019-08-03] MEDS: CARBIDOPA-LEVODOPA 25-100 MG 1 EACH TAB PO SCH ×3 (04:06→11:27)
[2019-08-03] MEDS: PANTOPRAZOLE 40 MG TABLET PO SCH (07:00)
[2019-08-03] MEDS: BISACODYL 5 MG TABLET.DR PO SCH (07:01)
[2019-08-03] MEDS: SPIRONOLACTONE 25 MG TAB PO SCH (07:01)
[2019-08-03] MEDS: CHOLECALCIFEROL 1,000 UNIT TAB PO SCH (07:01)
[2019-08-03] MEDS: LISINOPRIL-HCTZ 10-12.5 MG 1 EACH TAB PO SCH (07:02)
[2019-08-03 07:45] VITALS: PULSE 65; TEMP 98.2
[2019-08-03 07:47] LABS: Basophils # (A) 0.1 k/uL (0-0.2); Basophils % (A) 1 %; Eosinophils # (A) 0.3 k/uL (0-0.7); Eosinophils % (A) 4 %; HCT 38.4 % (34.0-46.0); HGB 12.8 gm/dL (11.4-16.0); Lymphocytes # (A) 2.5 k/uL (1.0-4.8); Lymphocytes % (A) 35 %; MCHC 33.2 g/dL (31.0-37.0); MCV 90.1 fL (80.0-100.0); Mean Platelet Volume 7.5; Monocytes # (A) 0.4 k/uL (0-1.0); Monocytes % (A) 6 %; Neutrophils # (A) 3.8 k/uL (1.3-7.7); Neutrophils % (A) 53 %; Platelet Count 246 k/uL (150-450); RBC 4.27 m/uL (3.80-5.40); RDW 12.1 % (11.5-15.5); WBC 7.1 k/uL (3.8-10.6)
[2019-08-03 07:55] LABS: African American GFR (CKD) >90 (>60 ml/min/1.73 sqM); Anion Gap 7 mmol/L; Blood Urea Nitrogen 30 mg/dL (7-17); Calcium 9.2 mg/dL (8.4-10.2); Carbon Dioxide 27 mmol/L (22-30); Chloride 100 mmol/L (98-107); Glucose 88 mg/dL (74-99); Non-African American GFR(CKD) 79 (>60 ml/min/1.73 sqM); Potassium 4.2 mmol/L (3.5-5.1); Sodium 134 mmol/L (137-145)
[2019-08-03 08:10] LABS: INR 2.7 (<1.2); Prothrombin Time 25.7 sec (9.0-12.0)
--- NOTE | 2019-08-03 11:30 | P.DS ---
Providers Date of admission: 07/30/19 21:20 Attending physician: Wolf Soriano MD Consults: 07/30/19 21:20 Consult Physician Urgent Consulting Provider: Jarocho Alas Consult Reason/Comments: esbl uti Do you want consulting provider notified?: Already Contacted Primary care physician: [facility] Course: Final diagnosis Recurrent UTI with ESBL E. coli with the Proteus species with the failure of outpatient treatment. History of asthma Generalized gait dysfunction myopathy Coumadin coagulopathy History of CHF with chronic diastolic dysfunction ejection fraction 50-60% History of CVA TIA History of DVT History GERD Hypertension History of memory impairment DJD ulcerative colitis diverticulosis history of for Parkinson's disease History of CVA History of pulmonary embolus History of shingles History of for ESBL E. coli History of cholecystectomy History of anxiety History gait dysfunction obesity body mass of 32.8 Full code Discharge disposition patient be discharged in a stable condition with guarded prognosis stable condition told time taken 35 minutes patient be discharged to [facility] on the arma. Mr. post X This 79-year-old woman with a past medical history multiple medical was admitted with ESBL E. coli infection patient was treated with the broad-spectrum IV antibiotics to Dr. Alas saw the patient the UA repeated the did not show any acute abnormality Dr. Alas recommended to stop the antibiotics and then no further course of antibiotics necessary currently. the possibility of colonization also to be considered. Overall patient made significant impr ovement but however the patient is extremely weak and the patient be sent [facility] for continued rehab and continued monitoring also. On exam vitals are stable cardio S1-S2 normal respirator system few scattered rhonchi abdomen soft nervous system no focal deficit Please refer to medication reconciliation sheet for the list of. Medications. Patient Condition at Discharge: Stable Plan - Discharge Summary New Discharge Prescriptions: Continue Omeprazole [PriLOSEC] 20 mg PO BID Spironolactone [Aldactone] 25 mg PO DAILY tab Sennosides-Docusate Sodium [Senokot-S] 1 tab PO DAILY PRN PRN Reason: Constipation Mirabegron [Myrbetriq] 25 mg PO HS Cholecalciferol [Vitamin D3 (25 Mcg = 1000 Iu)] 2,000 unit PO DAILY Bisacodyl [Dulcolax] 5 mg PO BID Lisinopril-Hctz 10-12.5 mg [Zestoretic 10-12.5] 1 tab PO DAILY Warfarin [Coumadin] 2.5 mg PO SUTUWETHFRSA Carbidopa-Levodopa 25-100 mg [Sinemet 25-100 mg] 1 tab PO Q4H Discontinued Doxycycline Monohydrate [Monodox] 100 mg PO BID Discharge Medication List Omeprazole [PriLOSEC] 20 mg PO BID 01/11/19 [History] Spironolactone [Aldactone] 25 mg PO DAILY tab 01/25/19 [Rx] Mirabegron [Myrbetriq] 25 mg PO HS 02/11/19 [History] Sennosides-Docusate Sodium [Senokot-S] 1 tab PO DAILY PRN 02/11/19 [History] Bisacodyl [Dulcolax] 5 mg PO BID 02/19/19 [History] Cholecalciferol [Vitamin D3 (25 Mcg = 1000 Iu)] 2,000 unit PO DAILY 02/19/19 [History] Lisinopril-Hctz 10-12.5 mg [Zestoretic 10-12.5] 1 tab PO DAILY 03/09/19 [History] Warfarin [Coumadin] 2.5 mg PO SUTUWETHFRSA 04/07/19 [History] Carbidopa-Levodopa 25-100 mg [Sinemet 25-100 mg] 1 tab PO Q4H 07/30/19 [History] Follow up Appointment(s)/Referral(s): Angel Benitez DO [Primary Care Provider] - 08/05/19 9:40 am (with [employer], [NON-STAFF] - As Needed Ambulatory/Diagnostic Orders: Complete Blood Count w/diff [LAB.AMB] Location: None Selected Activity/Diet/Wound Care/Special Instructions: Diet cardiac Activity Limited follow-up Follow-up with the ID as recommended or when necessary
[2019-08-03 11:34] VITALS: BP 118/71
--- NOTE | 2019-08-03 16:09 | PN ---
PROGRESS NOTE DATE OF SERVICE: 08/03/2019 REASON FOR FOLLOWUP: 1. UTI. 2. Diarrhea. INTERVAL HISTORY: The patient was seen on rounds earlier this afternoon. The patient has been afebrile. She has been breathing comfortably. Denies having any chest pain, shortness of breath or cough. Patient was mentioning loose stools. However, RN mentioned that the patient was getting Dulcolax, which has been put on hold currently, with no abdominal pain. No chest pain, shortness of breath or cough. PHYSICAL EXAMINATION: Blood pressure is 119/71 with a pulse of 65, temperature 98.2. She is 94% on room air. General description is an elderly female lying in bed in no distress. RESPIRATORY SYSTEM: Unlabored breathing. Clear to auscultation anteriorly. HEART: S1, S2. Regular rate and rhythm. ABDOMEN: Soft. No tenderness. LABS: Hemoglobin is 12.8, white count 7.1. BUN of 30, creatinine 0.73. Blood culture has been negative. DIAGNOSTIC IMPRESSION AND PLAN: 1. Patient admitted to hospital with concern for a urinary tract infection. Outpatient urine cultures were positive for ESBL E coli, though the UA was negative. Patient had no fever or elevated white count. Possible mild cystitis that has been adequately treated, with no need for antibiotic on discharge. 2. Diarrhea, possibly antibiotic-associated or related to the laxative, which has been put on hold. Patient has been advised to increase her probiotic and yogurt intake. If any worsening diarrhea, to let us know. MMODL / IJN: [id number] /
== END 2019-08-03 12:45 | DRG 690 ==
LOC: EC 18:59 → 4SSUR 21:20 → OBSVTOIN 08-03 08:53
PROVIDERS: ADMIT Internal Medicine; ATTEND Internal Medicine
DX: N39.0 Urinary tract infection, site not specified (principal); Z16.12 Extended spectrum beta lactamase (ESBL) resistance; I50.32 Chronic diastolic (congestive) heart failure; K51.90 Ulcerative colitis, unspecified, without complications; K52.1 Toxic gastroenteritis and colitis; B96.20 Unspecified Escherichia coli [E. coli] as the cause of diseases classified elsewhere; B96.4 Proteus (mirabilis) (morganii) as the cause of diseases classified elsewhere; E66.9 Obesity, unspecified; G20 Parkinson's disease; I11.0 Hypertensive heart disease with heart failure; J45.909 Unspecified asthma, uncomplicated; K57.90 Diverticulosis of intestine, part unspecified, without perforation or abscess without bleeding; M19.90 Unspecified osteoarthritis, unspecified site; R79.1 Abnormal coagulation profile; T45.515A Adverse effect of anticoagulants, initial encounter; Z68.32 Body mass index [BMI] 32.0-32.9, adult; Z79.01 Long term (current) use of anticoagulants; Z80.0 Family history of malignant neoplasm of digestive organs; Z82.49 Family history of ischemic heart disease and other diseases of the circulatory system; Z82.5 Family history of asthma and other chronic lower respiratory diseases; Z86.19 Personal history of other infectious and parasitic diseases; Z86.711 Personal history of pulmonary embolism; Z86.718 Personal history of other venous thrombosis and embolism; Z86.73 Personal history of transient ischemic attack (TIA), and cerebral infarction without residual deficits; Z87.440 Personal history of urinary (tract) infections; Z90.49 Acquired absence of other specified parts of digestive tract; Z90.710 Acquired absence of both cervix and uterus; Z98.42 Cataract extraction status, left eye; Z98.41 Cataract extraction status, right eye; Z96.1 Presence of intraocular lens; G72.9 Myopathy, unspecified; T36.95XA Adverse effect of unspecified systemic antibiotic, initial encounter; T47.4X5A Adverse effect of other laxatives, initial encounter; Z98.51 Tubal ligation status; R26.9 Unspecified abnormalities of gait and mobility; Z88.0 Allergy status to penicillin; Z88.7 Allergy status to serum and vaccine; Z91.041 Radiographic dye allergy status
CPT/HCPCS: 36415; 71045; 80048; 80053; 81001; 83605; 85025; 85610; 87040; 87502; 96365; 99284

== ENCOUNTER 2019-08-19 16:49 | Inpatient (IN) | payer MEDICARE, OTHER ==
[2019-08-19] MEDS ORDERED: DIPH,PERTUS(ACELL)TETVAC-LF 0.5 ML VIAL IM ONE (17:09)
--- NOTE | 2019-08-19 17:14 | ED ---
General Adult HPI - General Chief complaint: Fall Stated complaint: Fall, Weakness Time Seen by Provider: 08/19/19 16:50 Source: patient, EMS Mode of arrival: EMS Limitations: no limitations - History of Present Illness Initial comments: Dictation was produced using [employer] dictation software. please excuse any grammatical, word or spelling errors. Chief Complaint: 79-year-old female past medical history of deep venous thrombosis, heart failure, hypertension presents with generalized weakness, back pain, head pain and right shoulder pain after fall. History of Present Illness: 79-year-old female she has multiple comorbidities. Yesterday evening she was trying to get around at her daughter's house. She attempted to grab an object to stabilize her weight when the object broke causing her to fall backwards. Patient states she fell backwards striking her head and lower back. After the fall she noted that she had right shoulder pain, head pain. Patient is on Coumadin for DVT prophylaxis. Patient states she's also been feeling generally weak. She reports that she has long history of urinary tract infections. Patient reports that she's been in and out of multiple rehab facilities. She reports that she has history of ESBL in the urine. Patient states she has some mild back pain to her lower back she states she scratched her back while falling. She was ambulatory after the fall. Denies any other pain complaints. The ROS documented in this emergency department record has been reviewed and confirmed by me. Those systems with pertinent positive or negative responses have been documented in the HPI. All other systems are other negative and/or noncontributory. PHYSICAL EXAM: General Impression: Alert and oriented x3, not in acute distress HEENT: Normocephalic atraumatic, extra-ocular movements intact, pupils equal and reactive to light bilaterally, mucous membranes moist. Cardiovascular: Heart regular rate and rhythm, S1&S2 audible, no murmurs, rubs or gallops Chest: Lungs clear to auscultation bilaterally, no rhonchi, no wheeze, no rales Abdomen: Bowel sounds present, abdomen soft, non-tender, non-distended, no organomegaly Musculoskeletal: Pulses present and equal in all extremities, no peripheral edema, all extremities ranged, no pain with palpation of the pelvis Right upper extremity: No bruising, atraumatic, no erythema, ranged with no elicitation of pain. Motor: no focal deficits noted Neurological: CN II-XII grossly intact, no focal motor or sensory deficits noted Skin: 6 cm superficial abrasion to the skin overlying the thoracolumbar area Psych: Normal affect and mood ED course:79-year-old female presents after fall. Patient is "multiple comorbidities. She states that her fall was mechanical however she feels weak. All signs upon arrival are within acceptable limits. Patient is well-appearing at bedside. There is no physical exam findings to suggest suture medical in jury. She does have a superficial abrasion to her mid back. She has no central spine tenderness. She does have right paraspinal muscular tenderness to palpation. Chart review shows that patient has history of ESBL. Patient reports updated tetanus 3 years ago. Laboratory evaluation obtained. CBC unremarkable. Metabolic panel shows slight elevation of renal markers. There is concern of dehydration given elevated renal markers. Cardiac enzymes negative. Brain atrophy peptide is 228. Urin alysis is positive for trace ketones. INR is 3.9. Pelvis x-ray, shoulder x- ray, chest x-ray and computed tomography scan of the head and C-spine were unremarkable. Results of labs and imaging studies were discussed with patient and daughter. Patient and family member did not fill comfortable with patient being discharged due to her weakness. Believe the weakness is secondary to dehydration. Patient given intravenous fluids. She'll be admitted to observation with Dr. Levy. Dr. Levy except patient's care. Coumadin will be held at this time due to INR 3.9. EKG interpretation: Ventricular rate 71, normal sinus rhythm,. Interval 134, first 90, QTC 410. No RI prolongation, no QTC prolongation, no ST or T-wave changes noted. EKG compared to 08/19/2019 showing no changes. Overall, this EKG is unremarkable - Related Data Home Medications Medication Instructions Recorded Confirmed Omeprazole [PriLOSEC] 20 mg PO BID 01/11/19 07/30/19 Mirabegron [Myrbetriq] 25 mg PO HS 02/11/19 07/30/19 Sennosides-Docusate Sodium 1 tab PO DAILY PRN 02/11/19 07/30/19 [Senokot-S] Bisacodyl [Dulcolax] 5 mg PO BID 02/19/19 07/30/19 Cholecalciferol [Vitamin D3 (25 2,000 unit PO DAILY 02/19/19 07/30/19 Mcg = 1000 Iu)] Lisinopril-Hctz 10-12.5 mg 1 tab PO DAILY 03/09/19 07/30/19 [Zestoretic 10-12.5] Warfarin [Coumadin] 2.5 mg PO [id number] 04/07/19 07/30/19 Carbidopa-Levodopa 25-100 mg 1 tab PO Q4H 07/30/19 07/30/19 [Sinemet 25-100 mg] Previous Rx's Medication Instructions Recorded Spironolactone [Aldactone] 25 mg PO DAILY tab 01/25/19 Allergies Allergy/AdvReac Type Severity Reaction Status Date / Time Influenza Virus Vaccines Allergy Swelling Verified 07/30/19 21:40 Iodinated Contrast Media Allergy Chest Pain Verified 07/30/19 21:40 [Iodinated Contrast- Oral and IV Dye] Penicillins Allergy Anaphylaxis Verified 07/30/19 21:40 Review of Systems ROS Statement: Those systems with pertinent positive or pertinent negative responses have been documented in the HPI. ROS Other: All systems not noted in ROS Statement are negative. Past Medical History Past Medical History: Asthma, Heart Failure, CVA/TIA, Deep Vein Thrombosis (DVT), GERD/Reflux, Hypertension, Memory Impairment, Musculoskeletal Disorder, Neurologic Disorder, Osteoarthritis (OA) Additional Past Medical History / Comment(s): Ulcerative colitis, diverticulitis, parkinson's disease, CVA which pt was unaware of having-showed on cat scan, several DVTs bilateral legs and pt states since she has had intermittent bilateral ankle edema, thrombophlebitis, PE-pt cannot recall laterallity, generalized arthritis, urinary leakage, a few UTIs, shingles History of Any Multi-Drug Resistant Organisms: ESBL Date of last positivie culture/infection: 07/27/19 ESBL E.coli MDRO Source:: Urine Past Surgical History: Appendectomy, Cholecystectomy, Hysterectomy, Orthopedic Surgery, Tubal Ligation Additional Past Surgical History / Comment(s): L shoulder injury with surgery to repair, removals of DVTs bilateral legs, cataract removal/lens implants, colonoscopies. Past Anesthesia/Blood Transfusion Reactions: Postoperative Nausea & Vomiting (PONV) Additional Past Anesthesia/Blood Transfusion Reaction / Comment(s): Pt received blood with hysterectomy without reaction. Past Psychological History: Anxiety Smoking Status: Never smoker Past Alcohol Use History: None Reported Past Drug Use History: None Reported - Past Family History Father Family Medical History: Asthma, Cancer, COPD Additional Family Medical History / Comment(s): Gallbladder cancer Mother Family Medical History: Myocardial Infarction ([place]) Additional Family Medical History / Comment(s): Mother of a [place] at the age of 48 yrs. Sister(s) Additional Family Medical History / Comment(s): Sister of a blood clot at age 38 yrs-pt cannot recall specifics. General Exam Limitations: no limitations Course Vital Signs 08/19/19 17:01 Temperature 97.7 F Pulse Rate 73 Respiratory 17 Rate Blood Pressure 149/63 O2 Sat by Pulse 96 Oximetry Medical Decision Making - Lab Data Result diagrams: 08/19/19 17:00 08/19/19 17:00 Lab Results 08/19/19 08/19/19 08/19/19 Range/Units 17:00 17:00 17:00 WBC 6.1 (3.8-10.6) k/uL RBC 3.85 (3.80-5.40) m/uL Hgb 12.0 (11.4-16.0) gm/dL Hct 35.1 (34.0-46.0) % MCV 91.2 (80.0-100.0) fL MCH 31.3 (25.0-35.0) pg MCHC 34.3 (31.0-37.0) g/dL RDW 12.7 (11.5-15.5) % Plt Count 272 (150-450) k/uL Neutrophils % 67 % Lymphocytes % 23 % Monocytes % 6 % Eosinophils % 2 % Basophils % 1 % Neutrophils # 4.1 (1.3-7.7) k/uL Lymphocytes # 1.4 (1.0-4.8) k/uL Monocytes # 0.4 (0-1.0) k/uL Eosinophils # 0.1 (0-0.7) k/uL Basophils # 0.1 (0-0.2) k/uL PT 38.1 H (9.0-12.0) sec INR 3.9 H (<1.2) APTT 33.9 H (22.0-30.0) sec Sodium 137 (137-145) mmol/L Potassium 4.5 (3.5-5.1) mmol/L Chloride 102 (98-107) mmol/L Carbon Dioxide 28 (22-30) mmol/L Anion Gap 7 mmol/L BUN 36 H (7-17) mg/dL Creatinine 1.30 H (0.52-1.04) mg/dL Est GFR (CKD-EPI)AfAm 45 (>60 ml/min/1.73 sqM) Est GFR (CKD-EPI)NonAf 39 (>60 ml/min/1.73 sqM) Glucose 99 (74-99) mg/dL Calcium 9.1 (8.4-10.2) mg/dL Magnesium 2.0 (1.6-2.3) mg/dL Troponin I (0.000-0.034) ng/mL NT-Pro-B Natriuret Pep pg/mL Urine Color Urine Appearance (Clear) Urine pH (5.0-8.0) Ur Specific [place] (1.001-1.035) Urine Protein (Negative) Urine Glucose (UA) (Negative) Urine Ketones (Negative) Urine Blood (Negative) Urine Nitrite (Negative) Urine Bilirubin (Negative) Urine Urobilinogen (<2.0) mg/dL Ur Leukocyte Esterase (Negative) 08/19/19 08/19/19 08/19/19 Range/Units 17:00 17:00 18:05 WBC (3.8-10.6) k/uL RBC (3.80-5.40) m/uL Hgb (11.4-16.0) gm/dL Hct (34.0-46.0) % MCV (80.0-100.0) fL MCH (25.0-35.0) pg MCHC (31.0-37.0) g/dL RDW (11.5-15.5) % Plt Count (150-450) k/uL Neutrophils % % Lymphocytes % % Monocytes % % Eosinophils % % Basophils % % Neutrophils # (1.3-7.7) k/uL Lymphocytes # (1.0-4.8) k/uL Monocytes # (0-1.0) k/uL Eosinophils # (0-0.7) k/uL Basophils # (0-0.2) k/uL PT (9.0-12.0) sec INR (<1.2) APTT (22.0-30.0) sec Sodium (137-145) mmol/L Potassium (3.5-5.1) mmol/L Chloride (98-107) mmol/L Carbon Dioxide (22-30) mmol/L Anion Gap mmol/L BUN (7-17) mg/dL Creatinine (0.52-1.04) mg/dL Est GFR (CKD-EPI)AfAm (>60 ml/min/1.73 sqM) Est GFR (CKD-EPI)NonAf (>60 ml/min/1.73 sqM) Glucose (74-99) mg/dL Calcium (8.4-10.2) mg/dL Magnesium (1.6-2.3) mg/dL Troponin I <0.012 (0.000-0.034) ng/mL NT-Pro-B Natriuret Pep 228 pg/mL Urine Color Yellow Urine Appearance Clear (Clear) Urine pH 5.5 (5.0-8.0) Ur Specific [place] 1.021 (1.001-1.035) Urine Protein Trace H (Negative) Urine Glucose (UA) Negative (Negative) Urine Ketones Trace H (Negative) Urine Blood Negative (Negative) Urine Nitrite Negative (Negative) Urine Bilirubin Negative (Negative) Urine Urobilinogen 2.0 (<2.0) mg/dL Ur Leukocyte Esterase Negative (Negative) Disposition Clinical Impression: Fall, Dehydration, Generalized weakness Disposition: ADMITTED IP TO THIS [facility] Condition: Fair Referrals: Angel Benitez DO [Primary Care Provider] - 1-2 days Decision Time: 19:10
[2019-08-19 17:21] LABS: Basophils # (A) 0.1 k/uL (0-0.2); Basophils % (A) 1 %; Eosinophils # (A) 0.1 k/uL (0-0.7); Eosinophils % (A) 2 %; HCT 35.1 % (34.0-46.0); Lymphocytes # (A) 1.4 k/uL (1.0-4.8); Lymphocytes % (A) 23 %; MCH 31.3 pg (25.0-35.0); MCHC 34.3 g/dL (31.0-37.0); MCV 91.2 fL (80.0-100.0); Mean Platelet Volume 7.4; Monocytes # (A) 0.4 k/uL (0-1.0); Monocytes % (A) 6 %; Neutrophils # (A) 4.1 k/uL (1.3-7.7); Neutrophils % (A) 67 %; Platelet Count 272 k/uL (150-450); RBC 3.85 m/uL (3.80-5.40); RDW 12.7 % (11.5-15.5); WBC 6.1 k/uL (3.8-10.6)
[2019-08-19 17:30] LABS: INR 3.9 (<1.2); Partial Thromboplastin Time 33.9 sec (22.0-30.0); Prothrombin Time 38.1 sec (9.0-12.0)
[2019-08-19 17:32] LABS: Calcium 9.1 mg/dL (8.4-10.2); Potassium 4.5 mmol/L (3.5-5.1)
[2019-08-19 18:23] LABS: Appearance,Urine Clear (Clear); Bilirubin,Urine Negative (Negative); Blood,Urine Negative (Negative); Color,Urine Yellow; Glucose,Urine (UA) Negative (Negative); Ketones,Urine Trace (Negative); Leukocyte Esterase,Urine Negative (Negative); Nitrite,Urine Negative (Negative); PH, Urine 5.5 (5.0-8.0); Protein,Urine Trace (Negative); Specific Gravity,Urine 1.021 (1.001-1.035)
--- NOTE | 2019-08-19 18:34 | CT ---
EXAMINATION TYPE: CT brain maraine wo con DATE OF EXAM: 08/19/2019 COMPARISON: 06/26/2019 HISTORY: Fall with posterior head injury. CT DLP: 1369.3 mGycm Automated exposure control for dose reduction was used. TECHNIQUE: CT scan of the head and cervical spine are performed without contrast. FINDINGS: There is no acute intracranial hemorrhage, mass effect, or midline shift identified. The ventricles and sulci are within normal limits in size. The globes are intact and the visualized sin uses are clear. Cervical spine is visualized in its entirety from C1 through upper thoracic levels and demonstrates s atisfactory alignment without evidence of acute fracture or dislocation. Prevertebral soft tissue ap pears within normal limits. The C1-C2 articulation is unremarkable. IMPRESSION: 1. There is no acute fracture or dislocation evident in the cervical spine. 2. No acute intracranial hemorrhage, mass effect, or midline shift is seen.
--- NOTE | 2019-08-19 18:45 | XR ---
EXAMINATION: XR chest 2V DATE AND TIME: 08/19/2019 5:57 PM CLINICAL INDICATION: PHH; fall TECHNIQUE: Departmental protocol COMPARISON: 08/01/2019 FINDINGS: The lungs are clear. The pleural spaces are negative. The cardiac silhouette is not enlarged. The remainder of the mediastinal silhouette is unremarkable. The skeletal structures and soft tissues are negative for acute findings. IMPRESSION: NO ACUTE PROCESS.
--- NOTE | 2019-08-19 18:46 | XR ---
PROCEDURE: XR pelvis AP view - 1V DATE AND TIME: 08/19/2019 5:57 PM CLINICAL INDICATION: PHH; fall TECHNIQUE: Department protocol COMPARISON: None FINDINGS: There is no fracture or malalignment. The soft tissues are unremarkable. IMPRESSION: NO ACUTE PROCESS.
--- NOTE | 2019-08-19 18:46 | XR ---
PROCEDURE: XR shoulder complete RT - 3V DATE AND TIME: 08/19/2019 5:57 PM CLINICAL INDICATION: PHH; fall TECHNIQUE: Department protocol COMPARISON: None FINDINGS: There is no fracture or malalignment. The soft tissues are unremarkable. IMPRESSION: NO ACUTE PROCESS.
[2019-08-19] MEDS ORDERED: SODIUM CHLORIDE 0.9% 1,000 ML IV STA (18:53)
[2019-08-19] MEDS ORDERED: NALOXONE 0.4 MG/ML 1 ML VIAL IV PRN (19:07)
[2019-08-19] MEDS ORDERED: ONDANSETRON 4 MG/2 ML VIAL IVP PRN (19:07)
[2019-08-19] MEDS: ACETAMINOPHEN TAB 325 MG TAB PO PRN (19:18)
[2019-08-19 20:11] LABS: Glucose,Whole Blood 90 mg/dL (75-99)
[2019-08-19] MEDS: CARBIDOPA-LEVODOPA 25-100 MG 1 EACH TAB PO SCH (21:11)
[2019-08-19] MEDS: BISACODYL 5 MG TABLET.DR PO SCH (21:11)
[2019-08-19] MEDS: PANTOPRAZOLE 40 MG TABLET PO SCH (21:17)
[2019-08-19] MEDS: SODIUM CHLORIDE 0.9% 1,000 ML IV SCH (21:17)
[2019-08-20] MEDS: CARBIDOPA-LEVODOPA 25-100 MG 1 EACH TAB PO SCH ×7 (00:35→23:47)
[2019-08-20] MEDS: ACETAMINOPHEN TAB 325 MG TAB PO PRN ×3 (00:35→23:00)
[2019-08-20] MEDS: CHOLECALCIFEROL 1,000 UNIT TAB PO SCH (08:19)
[2019-08-20] MEDS: PANTOPRAZOLE 40 MG TABLET PO SCH ×2 (08:19→15:48)
[2019-08-20] MEDS: BISACODYL 5 MG TABLET.DR PO SCH ×2 (08:20→23:01)
[2019-08-20] MEDS ORDERED: SPIRONOLACTONE 25 MG TAB PO SCH (09:00)
[2019-08-20] MEDS ORDERED: LISINOPRIL-HCTZ 10-12.5 MG 1 EACH TAB PO SCH (09:00)
[2019-08-20] MEDS: SODIUM CHLORIDE 0.9% 1,000 ML IV SCH ×2 (09:58→23:02)
[2019-08-20] MEDS ORDERED: SENNOSIDES-DOCUSATE SODIUM 1 EACH TAB PO PRN (12:59)
--- NOTE | 2019-08-20 22:02 | P.HPIM ---
History of Present Illness H&P Date: 08/20/19 Chief Complaint: Fall backwards History of presenting complaint: This is a very pleasant 78-year-old patient of Dr. Benitez. Lives with her daughter. Chronic stable medical conditions include asthma hypertension osteoarthritis, diverticulosis, Parkinson's disease,chronic DVT and chronically on Coumadin. CHF with EF of 55-60% patient has chronic lower extremities swelling from venous insufficiency. Patient's had multiple UTIs. Uses a walker. Lost her balance and fell backwards. Hitting her head and the upper back. Did not lose consciousness. X-rays in the ER to rule out any fracture. Feeling weak tired rundown. No fever no chills. Appetite has been down.. Review of systems: GEN.: Tired EYES: None HEENT: Decreased hearing NECK: None RESPIRATORY: None CARDIOVASCULAR: Some edema GASTROINTESTINAL: None GENITOURINARY: Urinary incontinence MUSCULOSKELETAL: . Multiple joints LYMPHATICS: None HEMATOLOGICAL: None PSYCHIATRY: None NEUROLOGICAL: Chronic gait dysfunction Past medical history to include: Asthma, hypertension, osteoarthritis, diverticulosis, Parkinson's disease, chronic DVT, CHF EF 55-60%, chronic lower extremity swelling from venous in sufficiency, multiple UTIs Social history: Lives with her daughter. Uses a walker. No smoking or smoking . Physical examination: VITAL SIGNS: 97.7, 73, 17, 149/63, 96% room air GENERAL: Sitting up in a chair, tired EYES: Pupils equal. Conjunctiva normal. HEENT: External appearance of nose and ears normal, oral cavity grossly normal. NECK: JVD not raised; masses not palpable. HEART: First and second heart sounds are normal; edema present. LUNGS: Respiratory rate increased, decreased breath sounds ABDOMEN: Soft, no tenderness, no guarding or rigidity, liver spleen not palpable, no masses palpable. PSYCH: Alert and oriented x3; mood and affect normal. MUSCULOSKELETAL: Evidence of OA especially in the hands LYMPHATICS: No lymph nodes palpable NEUROLOGICAL: Cranial nerves grossly intact, power sensation grossly intact Investigations reviewed in the clinical context: White count 6.1 hemoglobin 12 platelets 272 103.9 pressure 4.5 bun 26 creatinine 1.30 Labs from August 02 showed upon creatinine of 0.73 Pelvis x-ray, shoulder x-ray, chest x-ray, had cervical spine computed tomography scan all negative for any fracture. EKG tracing personally reviewed by me-normal sinus rhythm Discharge diagnoses: -Acute kidney injury, likely prerenal in a patient is also on Zestoretic and Aldactone, precipitating weakness leading to falls -Fall backwards with blunt injury to the head and the spine with no fracture. Patient did not lose consciousness. -Chronic congestive heart failure from diastolic dysfunction EF 55-60% -Obesity BMI 34.5 -Chronic DVT for which patient chronically on Coumadin -GERD -Essential hypertension -Mild cognitive impairment from underlying Alzheimer's dementia -Primary osteoarthritis -Idiopathic Parkinson's disease -Chronic urinary stress incontinence -Chronic gait dysfunction uses a walker -Chronic lower extremity swelling from DVT causing venous insufficiency Plan: We'll hold of patient's Zestoretic, Aldactone, gently hydrate the patient. PTOT is being consulted. Patient expectation because of the fall is to go to inpatient rehab. We'll see how patient activity does following rehydration and correction of renal function. Past Medical History Past Medical History: Asthma, Heart Failure, CVA/TIA, Deep Vein Thrombosis (DVT), GERD/Reflux, Hypertension, Memory Impairment, Musculoskeletal Disorder, Neurologic Disorder, Osteoarthritis (OA) Additional Past Medical History / Comment(s): Ulcerative colitis, diverticulitis, parkinson's disease, CVA which pt was unaware of having-showed on cat scan, several DVTs bilateral legs and pt states since she has had intermittent bilateral ankle edema, thrombophlebitis, PE-pt cannot recall laterallity, generalized arthritis, urinary leakage, UTIs, shingles x 2 History of Any Multi-Drug Resistant Organisms: ESBL Date of last positivie culture/infection: 07/27/19 ESBL E.coli MDRO Source:: Urine Past Surgical History: Appendectomy, Cholecystectomy, Hysterectomy, Orthopedic Surgery, Tubal Ligation Additional Past Surgical History / Comment(s): L shoulder injury with surgery to repair, removals of DVTs bilateral legs, cataract removal/lens implants, colonoscopies, hemorrohoids surgery Past Anesthesia/Blood Transfusion Reactions: Postoperative Nausea & Vomiting (PONV) Additional Past Anesthesia/Blood Transfusion Reaction / Comment(s): Pt received blood with hysterectomy without reaction. Past Psychological History: Anxiety Additional Psychological History / Comment(s): Pt resides with her daughter. She moved here from [place] to live with her daughter 3 yrs ago. She ambulates with a walker. She no longer drives, her daughter takes her to appts. She is otherwise independent. Retired. Nonsmoker. No experience. No animal exposures. No travel. Smoking Status: Never smoker Past Alcohol Use History: None Reported Past Drug Use History: None Reported - Past Family History Father Family Medical History: Asthma, Cancer, COPD Additional Family Medical History / Comment(s): Gallbladder cancer Mother Family Medical History: Myocardial Infarction ([place]) Additional Family Medical History / Comment(s): Mother of a [place] at the age of 48 yrs. Sister(s) Additional Family Medical History / Comment(s): Sister of a blood clot at age 38 yrs-pt cannot recall specifics. Medications and Allergies Home Medications Medication Instructions Recorded Confirmed Type Omeprazole [PriLOSEC] 20 mg PO BID 01/11/19 08/19/19 History Spironolactone [Aldactone] 25 mg PO DAILY tab 01/25/19 08/19/19 Rx Mirabegron [Myrbetriq] 25 mg PO HS 02/11/19 08/19/19 History Sennosides-Docusate Sodium 1 tab PO DAILY PRN 02/11/19 08/19/19 History [Senokot-S] Bisacodyl [Dulcolax] 5 mg PO BID 02/19/19 08/19/19 History Cholecalciferol [Vitamin D3 (25 2,000 unit PO DAILY 02/19/19 08/19/19 History Mcg = 1000 Iu)] Lisinopril-Hctz 10-12.5 mg 1 tab PO DAILY 03/09/19 08/19/19 History [Zestoretic 10-12.5] Warfarin [Coumadin] 2.5 mg PO DIRECTED 04/07/19 08/19/19 History Carbidopa-Levodopa 25-100 mg 1 tab PO Q4H 07/30/19 08/19/19 History [Sinemet 25-100 mg] Allergies Allergy/AdvReac Type Severity Reaction Status Date / Time Influenza Virus Vaccines Allergy Swelling Verified 08/19/19 19:58 Iodinated Contrast Media Allergy Chest Pain Verified 08/19/19 19:58 [Iodinated Contrast- Oral and IV Dye] Penicillins Allergy Anaphylaxis Verified 08/19/19 19:58 Physical Exam Vitals: Vital Signs Temp Pulse Pulse Resp BP BP Pulse Ox 08/20/19 08:18 97.4 F L 66 16 107/55 96 01/17/20 03:30 18 08/20/19 02:24 97.9 F 59 L 18 124/72 95 08/19/19 23:25 16 08/19/19 20:15 18 08/19/19 20:14 98.7 F 70 16 123/68 96 08/19/19 19:21 97.9 F 69 18 156/68 99 08/19/19 17:01 97.7 F 73 17 149/63 96 Intake and Output 08/19/19 08/20/19 08/20/19 22:59 06:59 14:59 Other: Voiding Method Bedside Commode Bedside Commode Diaper Diaper # Voids 1 1 # Bowel Movements 1 Weight 70.108 kg Results CBC & Chem 7: 08/19/19 17:00 08/19/19 17:00 Labs: Abnormal Lab Results - Last 24 Hours (Table) 08/19/19 08/19/19 08/19/19 Range/Units 17:00 17:00 18:05 PT 38.1 H (9.0-12.0) sec INR 3.9 H (<1.2) APTT 33.9 H (22.0-30.0) sec BUN 36 H (7-17) mg/dL Creatinine 1.30 H (0.52-1.04) mg/dL Urine Protein Trace H (Negative) Urine Ketones Trace H (Negative)
[2019-08-21] MEDS: CARBIDOPA-LEVODOPA 25-100 MG 1 EACH TAB PO SCH ×6 (04:40→23:41)
[2019-08-21 06:59] LABS: INR 2.8 (<1.2); Prothrombin Time 27.1 sec (9.0-12.0)
[2019-08-21 07:06] LABS: Calcium 8.8 mg/dL (8.4-10.2); Potassium 4.2 mmol/L (3.5-5.1)
[2019-08-21] MEDS: BISACODYL 5 MG TABLET.DR PO SCH ×2 (08:29→20:26)
[2019-08-21] MEDS: PANTOPRAZOLE 40 MG TABLET PO SCH ×2 (08:29→16:57)
[2019-08-21] MEDS: CHOLECALCIFEROL 1,000 UNIT TAB PO SCH (08:29)
[2019-08-21] MEDS: ACETAMINOPHEN TAB 325 MG TAB PO PRN ×2 (08:34→15:31)
[2019-08-21] MEDS: SODIUM CHLORIDE 0.9% 1,000 ML IV SCH ×2 (08:35→20:30)
--- NOTE | 2019-08-21 11:17 | XR ---
EXAMINATION TYPE: XR lumbar spine 2 or 3V , 2 VIEWS DATE OF EXAM ORDERED: 08/21/2019 HISTORY: Pain after fall. COMPARISON: None. FINDINGS: Vertebral body height and alignment are maintained. There is no spondylolysis or spondylol isthesis. No fractures are seen. The pedicles are intact. IMPRESSION: 1. NO ACUTE OSSEOUS LESION. 2. DEGENERATIVE CHANGE.
--- NOTE | 2019-08-21 11:18 | XR ---
EXAMINATION TYPE: XR thoracic spine 2V , 3 VIEWS. DATE OF EXAM ORDERED: 08/21/2019 HISTORY: Pain after fall. COMPARISON: None. FINDINGS: Vertebral body height and alignment are maintained. No fractures are seen. Paraspinal soft tissues are normal. The pedicles are intact. There is mild hypertrophic spondylosis in the mid dorsa l spine. IMPRESSION: 1. NO ACUTE OSSEOUS LESION. 2. DEGENERATIVE CHANGE.
--- NOTE | 2019-08-21 15:54 | P.CNOR ---
History of Present Illness - [facility] Consult date: 08/21/19 History of present illness: This patient is a 79- year old female with a past medical history of asthma, hypertendion, diverticulosis, Parkinson's disease, chronic DVT currently on Coumadin that presented to [facility] ED on 08/19/2019 after falls at home. The patient states she lives with her daughter, and she was ambulating from the bathroom. She walks with a walker at baseline. She lost her balance and fell backwards, she needed assistance getting up. She states she hit her back and her head. She states she believes she was fine, but then a home health nurse recommended the patient be seen in the ED due to ongoing weakness. The patient was admitted under the care of internal medicine due to this weakness, and a consult was placed to orthopedic surgery for back pain. At the time of my exam, the patient is complaining of shoulder pain and back pain. She states her shoulder pain is mild, and her back pain is bothering her more. She states she is not experiencing pain while at rest and sitting, she experiences back pain with movement and twisting. She denies weakness, tingling of the bilateral lower extremities. She does note mild tingling of her bilateral lateral thighs, and she believes this may be new since the fall. She denies bowel or bladder incontinence. She denies radiation of pain into her hip or legs. Denies hip pain. She denies any additional complaints. Vital signs stable. Past Medical History Past Medical History: Asthma, Heart Failure, CVA/TIA, Deep Vein Thrombosis (DVT), GERD/Reflux, Hypertension, Memory Impairment, Musculoskeletal Disorder, Neurologic Disorder, Osteoarthritis (OA) Additional Past Medical History / Comment(s): Ulcerative colitis, diverticulitis, parkinson's disease, CVA which pt was unaware of having-showed on cat scan, several DVTs bilateral legs and pt states since she has had intermittent bilateral ankle edema, thrombophlebitis, PE-pt cannot recall laterallity, generalized arthritis, urinary leakage, UTIs, shingles x 2 History of Any Multi-Drug Resistant Organisms: ESBL Year Discovered:: 07/27/19 ESBL E.coli MDRO Source:: Urine Past Surgical History: Appendectomy, Cholecystectomy, Hysterectomy, Orthopedic Surgery, Tubal Ligation Additional Past Surgical History / Comment(s): L shoulder injury with surgery to repair, removals of DVTs bilateral legs, cataract removal/lens implants, colonoscopies, hemorrohoids surgery Past Anesthesia/Blood Transfusion Reactions: Postoperative Nausea & Vomiting (PONV) Additional Past Anesthesia/Blood Transfusion Reaction / Comm: Pt received blood with hysterectomy without reaction. Past Psychological History: Anxiety Additional Psychological History / Comment(s): Pt resides with her daughter. She moved here from [place] to live with her daughter 3 yrs ago. She ambulates with a walker. She no longer drives, her daughter takes her to [facility]. She is otherwise independent. Retired. Nonsmoker. No experience. No animal exposures. No travel. Smoking Status: Never smoker Past Alcohol Use History: None Reported Past Drug Use History: None Reported - Past Family History Father Family Medical History: Asthma, Cancer, COPD Additional Family Medical History / Comment(s): Gallbladder cancer Mother Family Medical History: Myocardial Infarction (MT) Additional Family Medical History / Comment(s): Mother of a MT at the age of 48 yrs. Sister(s) Additional Family Medical History / Comment(s): Sister of a blood clot at age 38 yrs-pt cannot recall specifics. Medications and Allergies Home Medications Medication Instructions Recorded Confirmed Type Omeprazole [PriLOSEC] 20 mg PO BID 01/11/19 08/19/19 History Spironolactone [Aldactone] 25 mg PO DAILY tab 01/25/19 08/19/19 Rx Mirabegron [Myrbetriq] 25 mg PO HS 02/11/19 08/19/19 History Sennosides-Docusate Sodium 1 tab PO DAILY PRN 02/11/19 08/19/19 History [Senokot-S] Bisacodyl [Dulcolax] 5 mg PO BID 02/19/19 08/19/19 History Cholecalciferol [Vitamin D3 (25 2,000 unit PO DAILY 02/19/19 08/19/19 History Mcg = 1000 Iu)] Lisinopril-Hctz 10-12.5 mg 1 tab PO DAILY 03/09/19 08/19/19 History [Zestoretic 10-12.5] Warfarin [Coumadin] 2.5 mg PO DIRECTED 04/07/19 08/19/19 History Carbidopa-Levodopa 25-100 mg 1 tab PO Q4H 12/27/19 01/16/20 History [Sinemet 25-100 mg] Allergies Allergy/AdvReac Type Severity Reaction Status Date / Time Influenza Virus Vaccines Allergy Swelling Verified 08/19/19 19:58 Iodinated Contrast Media Allergy Chest Pain Verified 08/19/19 19:58 [Iodinated Contrast- Oral and IV Dye] Penicillins Allergy Anaphylaxis Verified 08/19/19 19:58 Physical Examination On examination, the patient is sitting up in the bedside chair in no apparent distress. She is alert and orientated x3. Her head appears normocephalic and atraumatic. Her breathing appears non-labored. On inspection of the back, there is ecchymosis of the level of the thoracic spine. There is mild pain on palpation of this area. Mild pain on palpation of the lumbar spine. There is no pain on palpation of the C-spine. Motor and sensory function appear to be intact of the bilateral lower extremities, subjective mild numbness to the lateral thighs bilaterally. Able to perform straight leg raise bilaterally without pain or issues. Patient has good ROM and strength of the ankles bilaterally. EHL intact bilaterally. Mildly weaker on the left than the right, Patient notes her left side is weaker than the right at baseline, secondary to her Parkinson's disease. Calves are soft and nontender to palpation bilaterally. No pain with PROM of the shoulders. Pain with maximum, active internal rotation of the right shoulder, otherwise minimal pain with active range of motion of the right shoulder. <90 degrees of active forward flexion, abduction of the left shoulder, although patient states this is her baseline secondary to Parkinson's disease. Results CT brain and cervical spine 08/19/2019: No acute fracture evident in the C-spine. Right shoulder x-ray 08/19/2019: No acute fractures or dislocations. Pelvis x-ray 08/19/2019: No acute fractures or dislocations. Lumbar and thoracic spine x-ray 08/21/2019: No acute fractures or abnormalities. - Labs Labs: Abnormal Lab Results - Last 24 Hours (Table) 08/21/19 08/21/19 Range/Units 06:29 06:29 PT 27.1 H (9.0-12.0) sec INR 2.8 H (<1.2) BUN 22 H (7-17) mg/dL H & H 08/19/19 Range/Units 17:00 Hgb 12.0 (11.4-16.0) gm/dL Hct 35.1 (34.0-46.0) % Coagulation 08/19/19 08/21/19 Range/Units 17:00 06:29 INR 3.9 H 2.8 H (<1.2) Result Diagrams: 08/19/19 17:00 08/21/19 06:29 Assessment and Plan Assessment: Back contusion following fall Plan: - I discussed the clinical findings with the patient. Thoracic and lumbar spine x-rays ordered. If negative for an acute fracture or abnormalities, we will attempt a period of observation for the patient's back pain and lateral thigh numbness. If persistent, we may consider obtaining advanced imaging with an MRI. We will re-assess the patient tomorrow morning, along with the results of the thoracic and lumbar spine x-rays. Continue pain management per admitting team.
--- NOTE | 2019-08-21 22:51 | P.PN ---
Progress Note - Text Progress Note Date: 08/21/19 Chief Complaint: Fall backwards Interval history: This is a very pleasant 78-year-old patient of Dr. Benitez. Lives with her daughter. Chronic stable medical conditions include asthma hypertension osteoarthritis, diverticulosis, Parkinson's disease,chronic DVT and chronically on Coumadin. CHF with EF of 55-60% patient has chronic lower extremities swelling from venous insufficiency. Patient's had multiple UTIs. Uses a walker. Lost her balance and fell backwards. Hitting her head and the upper back. Did not lose consciousness. X-rays in the ER to rule out any fracture. Feeling weak tired rundown. No fever no chills. Appetite has been down.. -Fall felt to be precipitated by acute renal failure. Today-sitting up. Feeling better. Pain better. Did tolerate some diet. Review of systems: Was done for constitutional, cardiovascular, GI, pulmonary. r elevant finding as above Active Medications Acetaminophen (Tylenol Tab) 650 mg PO Q6HR PRN PRN Reason: Mild Pain or Fever > 100.5 Last Admin: 08/21/19 15:31 Dose: 650 mg Documented by: Bisacodyl (Dulcolax) 5 mg PO BID [facility] Last Admin: 08/21/19 20:26 Dose: 5 mg Documented by: Carbidopa/Levodopa (Sinemet 25-100) 1 each PO Q4H [facility] Last Admin: 08/21/19 20:26 Dose: 1 each Documented by: Cholecalciferol (Vitamin D3 (25 Mcg = 1000 Iu)) 2,000 unit PO DAILY [facility] Last Admin: 08/21/19 08:29 Dose: 2,000 unit Documented by: Sodium Chloride (Saline 0.9%) 1,000 mls @ 80 mls/hr IV .[id number] [facility] Last Admin: 08/21/19 20:30 Dose: 80 mls/hr Documented by: Naloxone HCl (Narcan) 0.2 mg IV Q2M PRN PRN Reason: Opioid Reversal Mirabegron [ (Myrbetriq] 25 Mg) 25 mg PO HS [facility] Last Admin: 08/21/19 20:24 Dose: Not Given Documented by: Ondansetron HCl (Zofran) 4 mg IVP Q8HR PRN PRN Reason: Nausea And Vomiting Pantoprazole Sodium (Protonix) 40 mg PO AC-BID [facility] Last Admin: 08/21/19 16:57 Dose: 40 mg Documented by: Senna/Docusate Sodium (Senokot-S) 1 each PO DAILY PRN PRN Reason: Constipation Physical examination: VITAL SIGNS: 97.5, 63, 15, 144/55, 98% room air GENERAL: Sitting up in a chair, EYES: Pupils equal. Conjunctiva normal. HEENT: External appearance of nose and ears normal, oral cavity grossly normal. NECK: JVD not raised; masses not palpable. HEART: First and second heart sounds are normal; edema present. LUNGS: Respiratory rate increased, decreased breath sounds ABDOMEN: Soft, no tenderness, no guarding or rigidity, liver spleen not palpable, no masses palpable. PSYCH: Alert and oriented x3; mood and affect normal. MUSCULOSKELETAL: Evidence of OA especially in the hands Investigations reviewed in the clinical context: Creatinine 0.83 bun 22 INR 2.8 Previous testing White count 6.1 hemoglobin 12 platelets 272 103.9 pressure 4.5 bun 26 creatinine 1.30 Labs from August 02 showed upon creatinine of 0.73 Pelvis x-ray, shoulder x-ray, chest x-ray, had cervical spine computed tomography scan all negative for any fracture. EKG tracing personally reviewed by me-normal sinus rhythm Discharge diagnoses: -Acute kidney injury, likely prerenal in a patient is also on Zestoretic and Aldactone, precipitating weakness leading to falls, corrected -Fall backwards with blunt injury to the head and the spine with no fracture. Patient did not lose consciousness. -Chronic congestive heart failure from diastolic dysfunction EF 55-60% -Obesity BMI 34.5 -Chronic DVT for which patient chronically on Coumadin -GERD -Essential hypertension -Mild cognitive impairment from underlying Alzheimer's dementia -Primary osteoarthritis -Idiopathic Parkinson's disease -Chronic urinary stress incontinence -Chronic gait dysfunction uses a walker -Chronic lower extremity swelling from DVT causing venous insufficiency Plan: We will DC IV fluids. Renal function is improved. Patient hoping to go to [facility]. Care discussed the patient.
[2019-08-22] MEDS: ACETAMINOPHEN TAB 325 MG TAB PO PRN ×4 (01:31→23:21)
[2019-08-22] MEDS: CARBIDOPA-LEVODOPA 25-100 MG 1 EACH TAB PO SCH ×6 (04:04→23:18)
[2019-08-22] MEDS: CHOLECALCIFEROL 1,000 UNIT TAB PO SCH (07:52)
[2019-08-22] MEDS: BISACODYL 5 MG TABLET.DR PO SCH ×2 (07:53→19:28)
[2019-08-22] MEDS: PANTOPRAZOLE 40 MG TABLET PO SCH ×2 (07:53→17:01)
--- NOTE | 2019-08-22 10:42 | P.PN ---
Progress Note - Text Progress Note Date: 08/22/19 Patient is seen and examined today at bedside. The patient has some pain around her lower back and towards her bilateral hips and thighs she feels as though it is making improvement today compared to yesterday. She was able to walk with physical therapy standing next to her over 120 feet. Pain is being controlled with medication. She denies any new pains or problems. Denies any changes in bowel bladder function Physical Exam Afebrile with stable vital signs Abdomen is soft nontender. Chest has good excursion deep and space expiration She has 5 out of 5 muscle strength wrist flexion plantar flexion and EHL. She is able lift her legs up off the bed independently. Calves and thighs were soft nontender without evidence of DVT. Assessment/Plan Lumbar strain and contusion due to multiple falls. No acute neurologic change Degenerative disc disease lumbar spine without evidence of fracture I do not see any instability or evidence of neurologic compromise. There is no evidence of any fracture. I don't think she needs any brace. Patient is making some improvement with general conservative treatment and mobilization and I think that is appropriate. I do not feel we need further imaging at this point. She has good strength in her lower extremities and can continue with her mobility. We will continue to increase the patient's mobilization with therapy. We will continue pain control with oral or IV medications. The patient can follow-up with our service on outpatient basis as needed. If she is having worsening we may consider further imaging and intervention however think she will continue to make progress with conservative management. I agree with her having placement or home care post hospitalization.
--- NOTE | 2019-08-22 20:40 | P.PN ---
Progress Note - Text Progress Note Date: 08/22/19 Chief Complaint: Fall backwards Interval history: This is a very pleasant 78-year-old patient of Dr. Benitez. Lives with her daughter. Chronic stable medical conditions include asthma hypertension osteoarthritis, diverticulosis, Parkinson's disease,chronic DVT and chronically on Coumadin. CHF with EF of 55-60% patient has chronic lower extremities swelling from venous insufficiency. Patient's had multiple UTIs. Uses a walker. Lost her balance and fell backwards. Hitting her head and the upper back. Did not lose consciousness. X-rays in the ER to rule out any fracture. Feeling weak tired rundown. No fever no chills. Appetite has been down.. -Fall felt to be precipitated by acute renal failure. Today-doing well. No new issues. Pain is much improved. Oral intake improved. Review of systems: Was done for constitutional, cardiovascular, GI, pulmonary. relevant finding as above Active Medications Acetaminophen (Tylenol Tab) 650 mg PO Q6HR PRN PRN Reason: Mild Pain or Fever > 100.5 Last Admin: 08/22/19 15:53 Dose: 650 mg Documented by: Bisacodyl (Dulcolax) 5 mg PO BID [facility] Last Admin: 08/22/19 19:28 Dose: 5 mg Documented by: Carbidopa/Levodopa (Sinemet 25-100) 1 each PO Q4H [facility] Last Admin: 08/22/19 19:28 Dose: 1 each Documented by: Cholecalciferol (Vitamin D3 (25 Mcg = 1000 Iu)) 2,000 unit PO DAILY [facility] Last Admin: 08/22/19 07:52 Dose: 2,000 unit Documented by: Naloxone HCl (Narcan) 0.2 mg IV Q2M PRN PRN Reason: Opioid Reversal Myrbetriq ( Mirabegron) Er 25 Mg Tablet 25 mg PO HS [facility] Last Admin: 08/22/19 19:28 Dose: 25 mg Documented by: Ondansetron HCl (Zofran) 4 mg IVP Q8HR PRN PRN Reason: Nausea And Vomiting Pantoprazole Sodium (Protonix) 40 mg PO AC-BID [facility] Last Admin: 08/22/19 17:01 Dose: 40 mg Documented by: Senna/Docusate Sodium (Senokot-S) 1 each PO DAILY PRN PRN Reason: Constipation Physical examination: VITAL SIGNS: 97.3, 70, 15, 11 7/62, 95% room air GENERAL: Sitting up in a chair, EYES: Pupils equal. Conjunctiva normal. HEENT: External appearance of nose and ears normal, oral cavity grossly normal. NECK: JVD not raised; masses not palpable. HEART: First and second heart sounds are normal; edema present. LUNGS: Respiratory rate increased, decreased breath sounds ABDOMEN: Soft, no tenderness, no guarding or rigidity, liver spleen not palpable, no masses palpable. PSYCH: Alert and oriented x3; mood and affect normal. MUSCULOSKELETAL: Evidence of OA especially in the hands Investigations reviewed in the clinical context: Creatinine 0.83 bun 22 INR 2.8 Previous testing White count 6.1 hemoglobin 12 platelets 272 103.9 pressure 4.5 bun 26 creatinine 1.30 Labs from August 02 showed upon creatinine of 0.73 Pelvis x-ray, shoulder x-ray, chest x-ray, had cervical spine computed tomography scan all negative for any fracture. EKG tracing personally reviewed by me-normal sinus rhythm Discharge diagnoses: -Acute kidney injury, likely prerenal in a patient is also on Zestoretic and Aldactone, precipitating weakness leading to falls, corrected -Fall backwards with blunt injury to the head and the spine with no fracture. Patient did not lose consciousness. -Chronic congestive heart failure from diastolic dysfunction EF 55-60% -Obesity BMI 34.5 -Chronic DVT for which patient chronically on Coumadin -GERD -Essential hypertension -Mild cognitive impairment from underlying Alzheimer's dementia -Primary osteoarthritis -Idiopathic Parkinson's disease -Chronic urinary stress incontinence -Chronic gait dysfunction uses a walker -Chronic lower extremity swelling from DVT causing venous insufficiency Plan: Stable. Continue current meds. ECF tomorrow.
[2019-08-22] MEDS ORDERED: MYRBETRIQ 25 MG PO SCH (21:00)
[2019-08-23 01:45] VITALS: PULSE 70
[2019-08-23] MEDS: CARBIDOPA-LEVODOPA 25-100 MG 1 EACH TAB PO SCH ×3 (04:18→11:35)
[2019-08-23 07:37] VITALS: RESP 18; TEMP 98.4
[2019-08-23] MEDS: BISACODYL 5 MG TABLET.DR PO SCH (08:19)
[2019-08-23] MEDS: PANTOPRAZOLE 40 MG TABLET PO SCH (08:19)
[2019-08-23] MEDS: CHOLECALCIFEROL 1,000 UNIT TAB PO SCH (08:19)
[2019-08-23 09:58] VITALS: BP 80/52
--- NOTE | 2019-08-23 12:51 | P.DS ---
Providers Date of admission: 08/20/19 11:33 Expected date of discharge: 08/23/19 Attending physician: Tim Levy Consults: 08/20/19 13:00 Consult Physician Routine Consulting Provider: Ligia Ivy Consult Reason/Comments: fall back pain Do you want consulting provider notified?: Yes [facility] physician: [facility] Course: Chief Complaint: Fall backwards Hospital course: This is a very pleasant 78-year-old patient of Dr. Benitez. Lives with her daughter. Chronic stable medical conditions include asthma hypertension osteoarthritis, diverticulosis, Parkinson's disease,chronic DVT and chronically on Coumadin. CHF with EF of 55-60% patient has chronic lower extremities swelling from venous insufficiency. Patient's had multiple UTIs. Uses a walker. Lost her balance and fell backwards. Hitting her head and the upper back. Did not lose consciousness. X-rays in the ER to rule out any fracture. Feeling weak tired rundown. No fever no chills. Appetite has been down.. -Fall felt to be precipitated by acute renal failure. Seen by Dr. Ivy from orthopedics. Doing well. Today-doing well. No new issues. . Oral intake improved. Consultation: [facility] Physical examination: VITAL SIGNS: 97.3, 70, 15, 11 7/62, 95% room air GENERAL: Sitting up in a chair, EYES: Pupils equal. Conjunctiva normal. HEENT: External appearance of nose and ears normal, oral cavity grossly normal. NECK: JVD not raised; masses not palpable. HEART: First and second heart sounds are normal; edema present. LUNGS: Respiratory rate normal, decreased breath sounds ABDOMEN: Soft, no tenderness, no guarding or rigidity, liver spleen not palpable, no masses palpable. PSYCH: Alert and oriented x3; mood and affect normal. MUSCULOSKELETAL: Evidence of OA especially in the hands Investigations reviewed in the clinical context: Creatinine 0.83 bun 22 INR 2.8 Previous testing White count 6.1 hemoglobin 12 platelets 272 103.9 pressure 4.5 bun 26 creatinine 1.30 Labs from August 02 showed upon creatinine of 0.73 Pelvis x-ray, shoulder x-ray, chest x-ray, had cervical spine computed tomograph y scan all negative for any fracture. EKG tracing personally reviewed by me-normal sinus rhythm Discharge diagnoses: -Acute kidney injury, likely prerenal in a patient is also on Zestoretic and Aldactone, precipitating weakness leading to falls, corrected -Fall backwards with blunt injury to the head and the spine with no fracture. Patient did not lose consciousness. -Chronic congestive heart failure from diastolic dysfunction EF 55-60% -Obesity BMI 34.5 -Chronic DVT for which patient chronically on Coumadin -GERD -Essential hypertension -Mild cognitive impairment from underlying Alzheimer's dementia -Primary osteoarthritis -Idiopathic Parkinson's disease -Chronic urinary stress incontinence -Chronic gait dysfunction uses a walker -Chronic lower extremity swelling from DVT causing venous insufficiency Disposition: [facility] Patient Condition at Discharge: Fair Plan - Discharge Summary Discharge Rx Participant: Yes New Discharge Prescriptions: New Acetaminophen Tab [Tylenol Tab] 650 mg PO Q4H PRN #1 tablet PRN Reason: Pain Continue Omeprazole [PriLOSEC] 20 mg PO BID Sennosides-Docusate Sodium [Senokot-S] 1 tab PO DAILY PRN PRN Reason: Constipation Mirabegron [Myrbetriq] 25 mg PO HS Cholecalciferol [Vitamin D3 (25 Mcg = 1000 Iu)] 2,000 unit PO DAILY Bisacodyl [Dulcolax] 5 mg PO BID Lisinopril-Hctz 10-12.5 mg [Zestoretic 10-12.5] 1 tab PO DAILY Carbidopa-Levodopa 25-100 mg [Sinemet 25-100 mg] 1 tab PO Q4H Discontinued Spironolactone [Aldactone] 25 mg PO DAILY tab Warfarin [Coumadin] 2.5 mg PO DIRECTED Discharge Medication List Omeprazole [PriLOSEC] 20 mg PO BID 01/11/19 [History] Mirabegron [Myrbetriq] 25 mg PO HS 02/11/19 [History] Sennosides-Docusate Sodium [Senokot-S] 1 tab PO DAILY PRN 02/11/19 [History] Bisacodyl [Dulcolax] 5 mg PO BID 02/19/19 [History] Cholecalciferol [Vitamin D3 (25 Mcg = 1000 Iu)] 2,000 unit PO DAILY 02/19/19 [History] Lisinopril-Hctz 10-12.5 mg [Zestoretic 10-12.5] 1 tab PO DAILY 03/09/19 [History] Carbidopa-Levodopa 25-100 mg [Sinemet 25-100 mg] 1 tab PO Q4H 07/30/19 [History] Acetaminophen Tab [Tylenol Tab] 650 mg PO Q4H PRN #1 tablet 08/23/19 [Rx] Follow up Appointment(s)/Referral(s): Angel Benitez DO [Primary Care Provider] - 09/03/19 1:00 pm Ligia Ivy DO [Doctor of Osteopathic Medicine] - As Needed (Patient may follow-up with Dr. Himanshu Ivy at [facility] on an as-needed basis following discharge. ) Jesus Cooney MD [STAFF PHYSICIAN] - 1-2 Days
[2019-08-23] MEDS: ACETAMINOPHEN TAB 325 MG TAB PO PRN (14:15)
== END 2019-08-23 15:13 | DRG 683 ==
LOC: EC 16:49 → 4SSUR 19:07 → OBSVTOIN 08-20 11:33
PROVIDERS: ADMIT Hospitalist; ATTEND Hospitalist
DX: N17.9 Acute kidney failure, unspecified (principal); I50.32 Chronic diastolic (congestive) heart failure; E86.0 Dehydration; E66.9 Obesity, unspecified; F02.80 Dementia in other diseases classified elsewhere, unspecified severity, without behavioral disturbance, psychotic disturbance, mood disturbance, and anxiety; F41.9 Anxiety disorder, unspecified; G20 Parkinson's disease; G30.9 Alzheimer's disease, unspecified; M19.91 Primary osteoarthritis, unspecified site; N39.3 Stress incontinence (female) (male); R29.6 Repeated falls; S20.229A Contusion of unspecified back wall of thorax, initial encounter; S39.012A Strain of muscle, fascia and tendon of lower back, initial encounter; W01.0XXA Fall on same level from slipping, tripping and stumbling without subsequent striking against object, initial encounter; I11.0 Hypertensive heart disease with heart failure; K21.9 Gastro-esophageal reflux disease without esophagitis; Z96.1 Presence of intraocular lens; J45.909 Unspecified asthma, uncomplicated; Z79.899 Other long term (current) drug therapy; Z79.01 Long term (current) use of anticoagulants; Z68.34 Body mass index [BMI] 34.0-34.9, adult; Z82.5 Family history of asthma and other chronic lower respiratory diseases; Z82.49 Family history of ischemic heart disease and other diseases of the circulatory system; Z90.710 Acquired absence of both cervix and uterus; Z87.440 Personal history of urinary (tract) infections; Z86.73 Personal history of transient ischemic attack (TIA), and cerebral infarction without residual deficits; Z86.718 Personal history of other venous thrombosis and embolism; Z86.19 Personal history of other infectious and parasitic diseases; Z80.0 Family history of malignant neoplasm of digestive organs; Z88.0 Allergy status to penicillin; Z88.7 Allergy status to serum and vaccine; Z91.041 Radiographic dye allergy status; Z90.49 Acquired absence of other specified parts of digestive tract; Z98.49 Cataract extraction status, unspecified eye; Z98.51 Tubal ligation status
CPT/HCPCS: 36415; 70450; 71046; 72070; 72100; 72125; 72170; 80048; 81003; 83735; 83880; 84484; 85025; 85610; 85730; 93005; 99285

== ENCOUNTER 2019-10-15 20:08 | Inpatient (IN) | payer MEDICARE, OTHER ==
[2019-10-15] MEDS ORDERED: SODIUM CHLORIDE 0.9% 500 ML 500 ML IV STA (20:13)
[2019-10-15] MEDS ORDERED: DILTIAZEM DRIP BOLUS FROM BAG 1 MG SOLN IV ONE (20:17)
[2019-10-15] MEDS ORDERED: DILTIAZEM 125 MG in SODIUM CHLORIDE 0.9% 100 ML IV SCH (20:30)
--- NOTE | 2019-10-15 20:42 | ED ---
General Adult HPI - General Stated complaint: chest pain Time Seen by Provider: 10/15/19 20:12 Source: patient, EMS, RN notes reviewed, old records reviewed Mode of arrival: EMS Limitations: no limitations - History of Present Illness Initial comments: 79-year-old female presenting from retirement with chief complaint of chest discomfort radiating to the left arm and palpitations. Patient is currently on Coumadin with history of DVT PE. She denies significant dyspnea. She is currently on antibiotics through a right upper extremity PICC line for recurrent urinary tract infection. She denies fever. She does complain of some dysuria. She is currently bedbound. No significant vomiting or diarrhea. - Related Data Home Medications Medication Instructions Recorded Confirmed Omeprazole [PriLOSEC] 20 mg PO BID 01/11/19 08/19/19 Mirabegron [Myrbetriq] 25 mg PO HS 02/11/19 08/19/19 Sennosides-Docusate Sodium 1 tab PO DAILY PRN 02/11/19 08/19/19 [Senokot-S] Bisacodyl [Dulcolax] 5 mg PO BID 02/19/19 08/19/19 Cholecalciferol [Vitamin D3 (25 2,000 unit PO DAILY 02/19/19 08/19/19 Mcg = 1000 Iu)] Lisinopril-Hctz 10-12.5 mg 1 tab PO DAILY 03/09/19 08/19/19 [Zestoretic 10-12.5] Carbidopa-Levodopa 25-100 mg 1 tab PO Q4H 07/30/19 08/19/19 [Sinemet 25-100 mg] Previous Rx's Medication Instructions Recorded Acetaminophen Tab [Tylenol Tab] 650 mg PO Q4H PRN #1 tablet 08/23/19 Warfarin [Coumadin] 2.5 mg PO DAILY #1 tab 08/23/19 Allergies Allergy/AdvReac Type Severity Reaction Status Date / Time Influenza Virus Vaccines Allergy Swelling Verified 08/19/19 19:58 Iodinated Contrast Media Allergy Chest Pain Verified 08/19/19 19:58 [Iodinated Contrast- Oral and IV Dye] Penicillins Allergy Anaphylaxis Verified 08/19/19 19:58 Review of Systems ROS Statement: Those systems with pertinent positive or pertinent negative responses have been documented in the HPI. ROS Other: All systems not noted in ROS Statement are negative. Past Medical History Past Medical History: Asthma, Heart Failure, CVA/TIA, Deep Vein Thrombosis (DVT), GERD/Reflux, Hypertension, Memory Impairment, Musculoskeletal Disorder, Neurologic Disorder, Osteoarthritis (OA) Additional Past Medical History / Comment(s): Ulcerative colitis, diverticulitis, parkinson's disease, CVA which pt was unaware of having-showed on cat scan, several DVTs bilateral legs and pt states since she has had intermittent bilateral ankle edema, thrombophlebitis, PE-pt cannot recall laterallity, generalized arthritis, urinary leakage, UTIs, shingles x 2 History of Any Multi-Drug Resistant Organisms: ESBL Date of last positivie culture/infection: 10/11/19 ESBL E.coli MDRO Source:: Urine Past Surgical History: Appendectomy, Cholecystectomy, Hysterectomy, Orthopedic Surgery, Tubal Ligation Additional Past Surgical History / Comment(s): L shoulder injury with surgery to repair, removals of DVTs bilateral legs, cataract removal/lens implants, colonoscopies, hemorrohoids surgery Past Anesthesia/Blood Transfusion Reactions: Postoperative Nausea & Vomiting (PONV) Additional Past Anesthesia/Blood Transfusion Reaction / Comment(s): Pt received blood with hysterectomy without reaction. Past Psychological History: Anxiety Smoking Status: Never smoker Past Alcohol Use History: None Reported Past Drug Use History: None Reported - Past Family History Father Family Medical History: Asthma, Cancer, COPD Additional Family Medical History / Comment(s): Gallbladder cancer Mother Family Medical History: Myocardial Infarction ([place]) Additional Family Medical History / Comment(s): Mother of a [place] at the age of 48 yrs. Sister(s) Additional Family Medical History / Comment(s): Sister of a blood clot at age 38 yrs-pt cannot recall specifics. General Exam Limitations: no limitations General appearance: alert, in no apparent distress Head exam: Present: atraumatic, normocephalic Eye exam: Present: normal appearance, PERRL ENT exam: Present: normal exam Neck exam: Present: normal inspection. Absent: tenderness, meningismus Respiratory exam: Present: normal lung sounds bilaterally. Absent: respiratory distress Cardiovascular Exam: Present: tachycardia, irregular rhythm GI/Abdominal exam: Present: soft, tenderness (very mild lower abdominal suprapubic tenderness). Absent: distended, guarding, rebound Extremities exam: Present: normal capillary refill, pedal edema Neurological exam: Present: alert. Absent: motor sensory deficit Psychiatric exam: Present: normal affect, normal mood Skin exam: Present: warm, dry, intact. Absent: cyanosis, diaphoretic Course Vital Signs 10/15/19 10/15/19 10/15/19 20:13 21:17 21:54 Temperature 97.7 F 97.6 F Pulse Rate 152 H 123 H 74 Respiratory 18 20 16 Rate Blood Pressure 104/72 129/80 144/81 O2 Sat by Pulse 99 98 99 Oximetry EKG Findings - EKG Comments: EKG Findings:: Atrial fibrillation with RVR, ST segment depression, reflux 62, QRS duration 158, QTC 443 ST segment depression is predominantly in the precordial leads. No ST segment elevation. Repeat EKG obtained at 2139, normal sinus rhythm, rate of 71, RI interval 140, QRS duration 4:15, no ST segment elevation or depression. Medical Decision Making - Medical Decision Making 79-year-old female presenting with chest pain, palpitations. Patient is found to be in atrial fibrillation with RVR, rate around 160 with ischemic changes. She had been given aspirin nitroglycerin by EMS prior to arrival with minimal improvement in symptoms. Workup does reveal normal CBC, normal x-rays, negative troponin. Urinalysis consistent with UTI which the patient is currently being treated for with IV antibiotics through a right upper extremity PICC line. While in the emergency department she is started on Cardizem and achieves rate and rhythm control returning to sinus rhythm without ischemic changes. She is chest pain-free with return to sinus rhythm. She is anticoagulated on Coumadin with therapeutic INR. She will be admitted for telemetry, cardiology consultation, serial cardiac enzymes. - Lab Data Result diagrams: 10/15/19 20:35 10/15/19 20:35 Lab Results 10/15/19 10/15/19 10/15/19 Range/Units 20:35 20:35 20:35 WBC 8.0 (3.8-10.6) k/uL RBC 4.16 (3.80-5.40) m/uL Hgb 12.7 (11.4-16.0) gm/dL Hct 38.5 (34.0-46.0) % MCV 92.5 (80.0-100.0) fL MCH 30.6 (25.0-35.0) pg MCHC 33.0 (31.0-37.0) g/dL RDW 12.9 (11.5-15.5) % Plt Count 267 (150-450) k/uL Neutrophils % 65 % Lymphocytes % 26 % Monocytes % 5 % Eosinophils % 2 % Basophils % 1 % Neutrophils # 5.1 (1.3-7.7) k/uL Lymphocytes # 2.1 (1.0-4.8) k/uL Monocytes # 0.4 (0-1.0) k/uL Eosinophils # 0.2 (0-0.7) k/uL Basophils # 0.1 (0-0.2) k/uL PT 24.7 H (9.0-12.0) sec INR 2.5 H (<1.2) APTT 28.5 (22.0-30.0) sec Sodium 140 (137-145) mmol/L Potassium 3.5 (3.5-5.1) mmol/L Chloride 106 (98-107) mmol/L Carbon Dioxide 29 (22-30) mmol/L Anion Gap 5 mmol/L BUN 19 H (7-17) mg/dL Creatinine 0.71 (0.52-1.04) mg/dL Est GFR (CKD-EPI)AfAm >90 (>60 ml/min/1.73 sqM) Est GFR (CKD-EPI)NonAf 82 (>60 ml/min/1.73 sqM) Glucose 150 H (74-99) mg/dL Plasma Lactic Acid Abdiaziz (0.7-2.0) mmol/L Calcium 8.9 (8.4-10.2) mg/dL Magnesium 2.0 (1.6-2.3) mg/dL Total Bilirubin 0.3 (0.2-1.3) mg/dL AST 16 (14-36) U/L ALT 6 (4-34) U/L Alkaline Phosphatase 50 (38-126) U/L Troponin I (0.000-0.034) ng/mL NT-Pro-B Natriuret Pep pg/mL Total Protein 6.4 (6.3-8.2) g/dL Albumin 3.8 (3.5-5.0) g/dL Urine Color Urine Appearance (Clear) Urine pH (5.0-8.0) Ur Specific [place] (1.001-1.035) Urine Protein (Negative) Urine Glucose (UA) (Negative) Urine Ketones (Negative) Urine Blood (Negative) Urine Nitrite (Negative) Urine Bilirubin (Negative) Urine Urobilinogen (<2.0) mg/dL Ur Leukocyte Esterase (Negative) Urine RBC (0-5) /hpf Urine WBC (0-5) /hpf Urine WBC Clumps (None) /hpf Ur Squamous Epith Cells (0-4) /hpf Hyaline Casts (0-2) /lpf Urine Mucus (None) /hpf 10/15/19 10/15/19 10/15/19 Range/Units 20:35 20:35 20:35 WBC (3.8-10.6) k/uL RBC (3.80-5.40) m/uL Hgb (11.4-16.0) gm/dL Hct (34.0-46.0) % MCV (80.0-100.0) fL MCH (25.0-35.0) pg MCHC (31.0-37.0) g/dL RDW (11.5-15.5) % Plt Count (150-450) k/uL Neutrophils % % Lymphocytes % % Monocytes % % Eosinophils % % Basophils % % Neutrophils # (1.3-7.7) k/uL Lymphocytes # (1.0-4.8) k/uL Monocytes # (0-1.0) k/uL Eosinophils # (0-0.7) k/uL Basophils # (0-0.2) k/uL PT (9.0-12.0) sec INR (<1.2) APTT (22.0-30.0) sec Sodium (137-145) mmol/L Potassium (3.5-5.1) mmol/L Chloride (98-107) mmol/L Carbon Dioxide (22-30) mmol/L Anion Gap mmol/L BUN (7-17) mg/dL Creatinine (0.52-1.04) mg/dL Est GFR (CKD-EPI)AfAm (>60 ml/min/1.73 sqM) Est GFR (CKD-EPI)NonAf (>60 ml/min/1.73 sqM) Glucose (74-99) mg/dL Plasma Lactic Acid Abdiaziz 2.2 H* (0.7-2.0) mmol/L Calcium (8.4-10.2) mg/dL Magnesium (1.6-2.3) mg/dL Total Bilirubin (0.2-1.3) mg/dL AST (14-36) U/L ALT (4-34) U/L Alkaline Phosphatase (38-126) U/L Troponin I <0.012 (0.000-0.034) ng/mL NT-Pro-B Natriuret Pep 219 pg/mL Total Protein (6.3-8.2) g/dL Albumin (3.5-5.0) g/dL Urine Color Urine Appearance (Clear) Urine pH (5.0-8.0) Ur Specific [place] (1.001-1.035) Urine Protein (Negative) Urine Glucose (UA) (Negative) Urine Ketones (Negative) Urine Blood (Negative) Urine Nitrite (Negative) Urine Bilirubin (Negative) Urine Urobilinogen (<2.0) mg/dL Ur Leukocyte Esterase (Negative) Urine RBC (0-5) /hpf Urine WBC (0-5) /hpf Urine WBC Clumps (None) /hpf Ur Squamous Epith Cells (0-4) /hpf Hyaline Casts (0-2) /lpf Urine Mucus (None) /hpf 10/15/19 Range/Units 21:15 WBC (3.8-10.6) k/uL RBC (3.80-5.40) m/uL Hgb (11.4-16.0) gm/dL Hct (34.0-46.0) % MCV (80.0-100.0) fL MCH (25.0-35.0) pg MCHC (31.0-37.0) g/dL RDW (11.5-15.5) % Plt Count (150-450) k/uL Neutrophils % % Lymphocytes % % Monocytes % % Eosinophils % % Basophils % % Neutrophils # (1.3-7.7) k/uL Lymphocytes # (1.0-4.8) k/uL Monocytes # (0-1.0) k/uL Eosinophils # (0-0.7) k/uL Basophils # (0-0.2) k/uL PT (9.0-12.0) sec INR (<1.2) APTT (22.0-30.0) sec Sodium (137-145) mmol/L Potassium (3.5-5.1) mmol/L Chloride (98-107) mmol/L Carbon Dioxide (22-30) mmol/L Anion Gap mmol/L BUN (7-17) mg/dL Creatinine (0.52-1.04) mg/dL Est GFR (CKD-EPI)AfAm (>60 ml/min/1.73 sqM) Est GFR (CKD-EPI)NonAf (>60 ml/min/1.73 sqM) Glucose (74-99) mg/dL Plasma Lactic Acid Abdiaziz (0.7-2.0) mmol/L Calcium (8.4-10.2) mg/dL Magnesium (1.6-2.3) mg/dL Total Bilirubin (0.2-1.3) mg/dL AST (14-36) U/L ALT (4-34) U/L Alkaline Phosphatase (38-126) U/L Troponin I (0.000-0.034) ng/mL NT-Pro-B Natriuret Pep pg/mL Total Protein (6.3-8.2) g/dL Albumin (3.5-5.0) g/dL Urine Color Yellow Urine Appearance Cloudy H (Clear) Urine pH 6.0 (5.0-8.0) Ur Specific [place] 1.027 (1.001-1.035) Urine Protein 1+ H (Negative) Urine Glucose (UA) Negative (Negative) Urine Ketones Trace H (Negative) Urine Blood Trace H (Negative) Urine Nitrite Negative (Negative) Urine Bilirubin Negative (Negative) Urine Urobilinogen 3.0 (<2.0) mg/dL Ur Leukocyte Esterase Large H (Negative) Urine RBC 14 H (0-5) /hpf Urine WBC >182 H (0-5) /hpf Urine WBC Clumps Few H (None) /hpf Ur Squamous Epith Cells 2 (0-4) /hpf Hyaline Casts 7 H (0-2) /lpf Urine Mucus Occasional H (None) /hpf Critical Care Time Critical Care Time: Yes Total Critical Care Time: 35 Disposition Clinical Impression: New onset atrial fibrillation, Atrial fibrillation with RVR, UTI due to ex tended-spectrum beta lactamase (ESBL) producing Escherichia coli Disposition: ADMITTED IP TO THIS HOSP Condition: Stable Is patient prescribed a controlled substance at d/c from ED?: No Referrals: Eros,Jesus, MD [Primary Care Provider] - 1-2 days Decision to Admit Reason: Admit from EC Decision Date: 10/15/19 Decision Time: 22:22
[2019-10-15 20:46] LABS: Basophils # (A) 0.1 k/uL (0-0.2); Basophils % (A) 1 %; Eosinophils # (A) 0.2 k/uL (0-0.7); Eosinophils % (A) 2 %; HCT 38.5 % (34.0-46.0); HGB 12.7 gm/dL (11.4-16.0); Lymphocytes # (A) 2.1 k/uL (1.0-4.8); Lymphocytes % (A) 26 %; MCH 30.6 pg (25.0-35.0); MCV 92.5 fL (80.0-100.0); Monocytes # (A) 0.4 k/uL (0-1.0); Monocytes % (A) 5 %; Neutrophils # (A) 5.1 k/uL (1.3-7.7); Neutrophils % (A) 65 %; Platelet Count 267 k/uL (150-450); RBC 4.16 m/uL (3.80-5.40); RDW 12.9 % (11.5-15.5)
[2019-10-15 20:54] LABS: INR 2.5 (<1.2); Partial Thromboplastin Time 28.5 sec (22.0-30.0); Prothrombin Time 24.7 sec (9.0-12.0)
[2019-10-15 20:57] LABS: ALT 6 U/L (4-34); AST 16 U/L (14-36); African American GFR (CKD) >90 (>60 ml/min/1.73 sqM); Albumin 3.8 g/dL (3.5-5.0); Alkaline Phosphatase 50 U/L (38-126); Anion Gap 5 mmol/L; Blood Urea Nitrogen 19 mg/dL (7-17); Calcium 8.9 mg/dL (8.4-10.2); Carbon Dioxide 29 mmol/L (22-30); Chloride 106 mmol/L (98-107); Glucose 150 mg/dL (74-99); Non-African American GFR(CKD) 82 (>60 ml/min/1.73 sqM); Potassium 3.5 mmol/L (3.5-5.1); Sodium 140 mmol/L (137-145); Total Bilirubin 0.3 mg/dL (0.2-1.3); Total Protein 6.4 g/dL (6.3-8.2)
--- NOTE | 2019-10-15 21:44 | XR ---
EXAMINATION TYPE: XR chest 2V DATE OF EXAM: 10/15/2019 COMPARISON: 08/19/2019 HISTORY: Chest pain TECHNIQUE: FINDINGS: Heart is normal. Lungs are clear of infiltrate. There is no pleural effusion. There are no hilar masses. There are chest leads. Bony thorax is intact. IMPRESSION: No active cardiopulmonary disease. No change.
[2019-10-15 21:49] LABS: Appearance,Urine Cloudy (Clear); Bilirubin,Urine Negative (Negative); Blood,Urine Trace (Negative); Color,Urine Yellow; Glucose,Urine (UA) Negative (Negative); Hyaline Casts,Urine 7 /lpf (0-2); Ketones,Urine Trace (Negative); Leukocyte Esterase,Urine Large (Negative); Mucus,Urine Occasional /hpf; Nitrite,Urine Negative (Negative); Protein,Urine 1+ (Negative); RBC,Urine 14 /hpf (0-5); Specific Gravity,Urine 1.027 (1.001-1.035); Squamous Epithelial Cell,Urine 2 /hpf (0-4); WBC,Urine >182 /hpf (0-5)
[2019-10-15] MEDS ORDERED: NALOXONE 0.4 MG/ML 1 ML VIAL IV PRN (22:18)
[2019-10-15] MEDS: SODIUM CHLORIDE 0.9% 1,000 ML IV SCH (22:29)
[2019-10-15] MEDS: ACETAMINOPHEN TAB 325 MG TAB PO PRN (22:29)
[2019-10-16] MEDS: CARBIDOPA-LEVODOPA ER 50-200MG 1 EACH TABLET.ER PO SCH ×2 (00:24→20:01)
[2019-10-16] MEDS: MELATONIN 5 MG TABLET PO SCH ×2 (00:24→20:01)
[2019-10-16] MEDS: ACETAMINOPHEN TAB 325 MG TAB PO PRN (06:09)
[2019-10-16] MEDS: PANTOPRAZOLE 40 MG TABLET PO SCH (06:09)
--- NOTE | 2019-10-16 08:09 | P.CRDCN ---
History of Present Illness Consult date: 10/16/19 Requesting physician: Sandro Higuera Consult reason: chest pain, atrial fibrillation Chief complaint: Chest pain, palpitations History of present illness: This is a 79-year-old female who resides in an extended care facility, she has a known history of hypertension, osteoarthritis, chronic UTI, Parkinson's, chronic DVT on Coumadin. She presented to the hospital with symptoms of left-sided chest pressure with associated heart racing and palpitations. Her EKG on arrival here showed atrial fibrillation with a rapid ventricular response, nonspecific ST-T wave changes. Subsequent EKG shows a normal sinus rhythm with no acute changes. Chest x-ray did not reveal any active cardiopulmonary disease. Blood pressure this morning 150/70 with a heart rate in the 60s, 95% on room air. She is afebrile. White blood cell count 8.0, hemoglobin 12.7, platelet count 267. INR on admission 2.5, 3.0 this morning. Sodium 140, potassium 3.5, BUN 19, creatinine 0.7. Glucose 150, plasma lactic acid 2.2. Her troponin on presentation here 0.012, subsequent troponin 0.27 and 0.44. BNP level CCXIX. Positive UTI. Patient has a ESBL in the urine. At the time of my examination this morning, patient states she still has some pressure in the left side of the chest which she's radiating at about a 4 this morning. Pain is worse with sitting forward, seems to improve when she lies flat. Past Medical History Past Medical History: Asthma, Heart Failure, CVA/TIA, Deep Vein Thrombosis (DVT), GERD/Reflux, Hypertension, Memory Impairment, Musculoskeletal Disorder, Neurologic Disorder, Osteoarthritis (OA) Additional Past Medical History / Comment(s): Ulcerative colitis, diverticulitis, parkinson's disease, CVA which pt was unaware of having-showed on cat scan, several DVTs bilateral legs and pt states since she has had in termittent bilateral ankle edema, thrombophlebitis, PE-pt cannot recall laterallity, generalized arthritis, urinary leakage, UTIs, shingles x 2 History of Any Multi-Drug Resistant Organisms: C-DIFF, ESBL Date of last positivie culture/infection: 10/11/19 ESBL E.coli MDRO Source:: Urine Past Surgical History: Appendectomy, Cholecystectomy, Hysterectomy, Orthopedic Surgery, Tubal Ligation Additional Past Surgical History / Comment(s): L shoulder injury with surgery to repair, removals of DVTs bilateral legs, cataract removal/lens implants, colonoscopies, hemorrohoids surgery Past Anesthesia/Blood Transfusion Reactions: Postoperative Nausea & Vomiting (PONV) Additional Past Anesthesia/Blood Transfusion Reaction / Comment(s): Pt received blood with hysterectomy without reaction. Past Psychological History: Anxiety Additional Psychological History / Comment(s): Pt resides at [facility]. Daughter can no longer care for her. She moved here from [place] to live with her gladis venegas 3 yrs ago. She ambulates with a walker. She no longer drives, her daughter takes her to [employer]. She is otherwise independent. Retired. Nonsmoker. No experience. No animal exposures. No travel. Smoking Status: Never smoker Past Alcohol Use History: None Reported Past Drug Use History: None Reported - Past Family History Father Family Medical History: Asthma, Cancer, COPD Additional Family Medical History / Comment(s): Gallbladder cancer Mother Family Medical History: Myocardial Infarction ([place]) Additional Family Medical History / Comment(s): Mother of a [place] at the age of 48 yrs. Sister(s) Additional Family Medical History / Comment(s): Sister of a blood clot at age 38 yrs-pt cannot recall specifics. Medications and Allergies Home Medications Medication Instructions Recorded Confirmed Type Omeprazole [PriLOSEC] 20 mg PO BID@0900,2100 01/11/19 10/15/19 History Sennosides-Docusate Sodium 1 tab PO DAILY PRN 02/11/19 10/15/19 History [Senokot-S] Bisacodyl [Dulcolax] 5 mg PO DAILY@0900 02/19/19 10/15/19 History Cholecalciferol [Vitamin D3 (25 2,000 unit PO DAILY@0900 02/19/19 10/15/19 History Mcg = 1000 Iu)] Carbidopa-Levodopa 25-100 mg 1 tab PO TID@0900,1300,1700 07/30/19 10/15/19 History [Sinemet 25-100 mg] Acetaminophen Tab [Tylenol Tab] 650 mg PO Q4H PRN #1 tablet 08/23/19 10/15/19 Rx Carbidopa/Levodopa [Sinemet CR 1 tab PO HS@2100 10/15/19 03/13/20 History 50-200 mg] Ertapenem [INVanz] 1 gm IM DAILY@0900 10/15/19 10/15/19 History Lisinopril [Zestril] 10 mg PO DAILY@0900 PRN 10/15/19 10/15/19 History Loperamide [Imodium] 2 mg PO DAILY PRN 10/15/19 10/15/19 History Mag Hydrox/Aluminum Hyd/Simeth 30 ml PO Q8H PRN 10/15/19 10/15/19 History [Mylanta Maximum Strength Liq] Melatonin 10 mg PO HS 10/15/19 10/15/19 History Midodrine HCl [ProAmantine] 2.5 mg PO BID@0900,209910/15/19 10/15/19 History Mirabegron [Myrbetriq] 25 mg PO DAILY@209910/15/19 10/15/19 History Warfarin [Coumadin] 1 mg PO MOWEFR 10/15/19 10/15/19 History Warfarin [Coumadin] 2.5 mg PO SUTUTHSA 10/15/19 10/15/19 History Allergies Allergy/AdvReac Type Severity Reaction Status Date / Time Influenza Virus Vaccines Allergy Swelling Verified 10/15/19 23:25 Iodinated Contrast Media Allergy Chest Pain Verified 10/15/19 23:25 [Iodinated Contrast- Oral and IV Dye] Penicillins Allergy Anaphylaxis Verified 10/15/19 23:25 Physical Exam Vitals: Vital Signs Temp Pulse Pulse Resp BP BP Pulse Ox 10/16/19 07:43 98.7 F 68 16 150/72 95 10/16/19 03:00 98.1 F 58 L 16 111/50 94 L 10/15/19 23:10 98 F 67 16 125/74 98 10/15/19 22:46 100/52 10/15/19 22:45 66 90/62 98 10/15/19 22:30 84 104/61 10/15/19 22:15 66 17 138/72 97 10/15/19 22:00 73 13 144/81 97 10/15/19 21:54 97.6 F 74 16 144/81 99 10/15/19 21:45 75 18 119/71 96 10/15/19 21:30 75 16 129/80 97 10/15/19 21:17 123 H 20 129/80 98 10/15/19 21:15 156 H 23 93/78 10/15/19 21:00 129 H 17 96/61 98 10/15/19 20:45 141 H 18 92/75 99 10/15/19 20:30 147 H 16 104/72 99 10/15/19 20:15 98 10/15/19 20:14 98 10/15/19 20:13 97.7 F 152 H 18 104/72 99 Intake and Output 10/15/19 10/16/19 10/16/19 22:59 06:59 14:59 Other: Voiding Method Bedside Commode Bedside Commode Weight 78.471 kg 67 kg PHYSICAL EXAMINATION: GENERAL: 79-year-old female in no acute distress at the time of my examination HEENT: Head is atraumatic, normocephalic. Pupils equal, round. Sclera anicteric. Conjunctiva are clear. Mucous membranes of the mouth are moist. Neck is supple. There is no elevated jugular venous pressure. No carotid bruit is heard. HEART EXAMINATION: Heart S1, S2 normal. No murmur or gallop heard. CHEST EXAMINATION: Lungs are clear to auscultation and precussion. No chest wall tenderness is noted on palpation or with deep breathing. ABDOMEN: Soft, nontender. Bowel sounds are heard. No organomegaly noted. EXTREMITIES: 2+ peripheral pulses with trace evidence of peripheral edema and no calf tenderness noted. NEUROLOGIC patient is awake, alert and oriented 3. . Results 10/15/19 20:35 10/15/19 20:35 Cardiac Enzymes 10/15/19 10/15/19 10/16/19 Range/Units 20:35 20:35 00:19 AST 16 (14-36) U/L Troponin I <0.012 0.278 H* (0.000-0.034) ng/mL 10/16/19 Range/Units 06:35 AST (14-36) U/L Troponin I 0.442 H* (0.000-0.034) ng/mL Coagulation 10/15/19 10/16/19 Range/Units 20:35 06:35 PT 24.7 H 29.0 H (9.0-12.0) sec APTT 28.5 (22.0-30.0) sec CBC 10/15/19 Range/Units 20:35 WBC 8.0 (3.8-10.6) k/uL RBC 4.16 (3.80-5.40) m/uL Hgb 12.7 (11.4-16.0) gm/dL Hct 38.5 (34.0-46.0) % Plt Count 267 (150-450) k/uL Comprehensive Metabolic Panel 10/15/19 Range/Units 20:35 Sodium 140 (137-145) mmol/L Potassium 3.5 (3.5-5.1) mmol/L Chloride 106 (98-107) mmol/L Carbon Dioxide 29 (22-30) mmol/L BUN 19 H (7-17) mg/dL Creatinine 0.71 (0.52-1.04) mg/dL Glucose 150 H (74-99) mg/dL Calcium 8.9 (8.4-10.2) mg/dL AST 16 (14-36) U/L ALT 6 (4-34) U/L Alkaline Phosphatase 50 (38-126) U/L Total Protein 6.4 (6.3-8.2) g/dL Albumin 3.8 (3.5-5.0) g/dL Current Medications Generic Name Dose Route Start Last Admin Trade Name Freq PRN Reason Stop Dose Admin Acetaminophen 650 mg 10/15/19 22:18 10/16/19 06:09 Tylenol Tab PO 650 mg Q6HR PRN Administration Mild Pain or Fever > 100.5 Carbidopa/Levodopa 1 each 10/16/19 09:00 Sinemet 25-100 PO TID@0900,1300,1700 [facility] Carbidopa/Levodopa 1 each 10/15/19 23:42 10/16/19 00:24 Sinemet Er 50-200 PO 1 each HS@2100 JOSETTE Administration Diltiazem HCl 125 mg/ Sodium 125 mls @ 5 mls/hr 10/15/19 20:30 10/15/19 21:08 Chloride IV 5 mg/hr .Q24H JOSETTE 5 mls/hr Administration 5 MG/HR Sodium Chloride 1,000 mls @ 20 mls/hr 10/15/19 22:30 10/15/19 22:29 Saline 0.9% IV 20 mls/hr .Q24H JOSETTE Administration Ertapenem 1 gm/ Sodium 50 mls @ 100 mls/hr 10/16/19 09:00 Chloride IVPB DAILY [facility] Protocol Melatonin 10 mg 10/15/19 23:45 10/16/19 00:24 Melatonin PO 10 mg HS JOSETTE Administration Naloxone HCl 0.2 mg 10/15/19 22:18 Narcan IV Q2M PRN Opioid Reversal Mirabegron [ 25 mg 10/16/19 21:00 Myrbetriq] 25 Mg PO DAILY@2100 JOSETTE Pantoprazole Sodium 40 mg 10/16/19 07:30 10/16/19 06:09 Protonix PO 40 mg DAILY@0730 JOSETTE Administration Intake and Output 10/15/19 10/16/19 10/16/19 22:59 06:59 14:59 Other: Voiding Method Bedside Commode Bedside Commode Weight 78.471 kg 67 kg 10/15/19 20:35 10/15/19 20:35 EKG Interpretations (text) Initial EKG on presentation here showed atrial fibrillation with a rapid ventricular response, subsequent EKG shows normal sinus rhythm with no acute ch anges. Assessment and Plan Plan: Assessment and plan #1 atrial fibrillation with rapid ventricular response, paroxysmal, patient currently in normal sinus rhythm #2 chest pressure and heaviness, abnormality in troponin, 0.012, 0.27, 0.44, could be secondary to A. fib with RVR, cannot completely rule out underlying coronary artery disease #3 hypertension #4 Parkinson's #5 chronic DVT for which patient is chronically on Coumadin #6 chronic UTI with ESBL in the urine #7 prior TIA #8 mild dementia Plan We'll discontinue the IV Cardizem, start the patient on a beta von, continue Coumadin. Initiate small dose statin. Patient had tried one of the newer anticoagulants in the past and was told that she would need to stay on Coumadin. We will check a TSH level and obtain an echocardiogram with Doppler study. Patient had an echocardiogram with Doppler study performed in January 2019 that revealed a normal left ventricular systolic function. Further recommendations to follow. DNP note has been reviewed, I agree with a documented findings and plan of care. Patient was seen and examined.
[2019-10-16] MEDS: METOPROLOL TARTRATE 25 MG TAB PO SCH (08:27)
[2019-10-16] MEDS: CARBIDOPA-LEVODOPA 25-100 MG 1 EACH TAB PO SCH ×3 (08:27→16:28)
[2019-10-16] MEDS ORDERED: ERTAPENEM 1 GM VIAL IVPB SCH (09:00)
[2019-10-16] MEDS ORDERED: ERTAPENEM 1 GM in SODIUM CHLORIDE 0.9% 50 ML IVPB SCH (09:00)
[2019-10-16] MEDS: KETOROLAC 30 MG/ML 1 ML VIAL IVP PRN ×3 (09:39→22:28)
--- NOTE | 2019-10-16 12:01 | ECHOF ---
Referral Reason:afib MEASUREMENTS -------- HEIGHT: 160.0 cm WEIGHT: 66.7 kg BP: 150/72 RVIDd: 2.6 cm (< 3.3) IVSd: 0.9 cm (0.6 - 1.1) LVIDd: 4.6 cm (3.9 - 5.3) LVPWd: 1.2 cm (0.6 - 1.1) IVSs: 1.5 cm LVIDs: 3.3 cm LVPWs: 1.3 cm LA Diam: 4.5 cm (2.7 - 3.8) LAESV Index (A-L): 32.57 ml/m Ao Diam: 2.2 cm (2.0 - 3.7) AV Cusp: 1.1 cm (1.5 - 2.6) LA Diam: 4.5 cm (2.7 - 3.8) MV EXCURSION: 18.048 mm (> 18.000) MV EF SLOPE: 86 mm/s (70 - 150) EPSS: 0.6 cm MV E Faisal: 1.14 m/s MV DecT: 182 ms MV A Faisal: 1.00 m/s MV E/A Ratio: 1.13 AR PHT: 648 ms RAP: 5.00 mmHg RVSP: 38.30 mmHg FINDINGS -------- Sinus rhythm. This was a technically good study. LV size, wall thickness and systolic function are normal, with an EF greater than 55%. The left jacqueline tricular size is normal. Left ventricular fillimg pressure cannot be estimated due to Atrial fibril lation. The right ventricle is normal in size. The left atrium is moderately dilated. LA is moderately dilated 34-39 ml/m2 The right atrial size is normal. There is mild aortic valve sclerosis. There is mild aortic regurgitation. Mild mitral annular calcification present. Mild mitral regurgitation is present. Mild tricuspid regurgitation present. There is mild pulmonary hypertension. The right ventricular systolic pressure, as measured by Doppler, is 38.30mmHg. Trace/mild (physiologic) pulmonic regurgitation. The aortic root size is normal. Echo free space represents a pericardial fat pad. CONCLUSIONS -------- 1. Sinus rhythm. 2. This was a technically good study. 3. LV size, wall thickness and systolic function are normal, with an EF greater than 55%. 4. The left ventricular size is normal. 5. Left ventricular fillimg pressure cannot be estimated due to Atrial fibrillation. 6. The right ventricle is normal in size. 7. The left atrium is moderately dilated. 8. LA is moderately dilated 34-39 ml/m2 9. The right atrial size is normal. 10. There is mild aortic valve sclerosis. 11. There is mild aortic regurgitation. 12. Mild mitral annular calcification present. 13. Mild mitral regurgitation is present. 14. Mild tricuspid regurgitation present. 15. There is mild pulmonary hypertension. 16. The right ventricular systolic pressure, as measured by Doppler, is 38.30mmHg. 17. Trace/mild (physiologic) pulmonic regurgitation. 18. The aortic root size is normal. 19. Echo free space represents a pericardial fat pad. ANALYST BUSINESS ANALYSIS: Marie Padilla RDCS
[2019-10-16] MEDS ORDERED: MAG HYDROX/AL HYDROX/SIMETH 30 ML CUP PO PRN (15:35)
[2019-10-16] MEDS ORDERED: SENNOSIDES-DOCUSATE SODIUM 1 EACH TAB PO PRN (15:35)
--- NOTE | 2019-10-16 15:42 | P.HPIM ---
History of Present Illness patient is a pleasant 70-year-old female came in from a extended care facility with complains of palpitations chest pressure like sensation found to be in atrial fibrillation. Patient also has mildly elevated troponinsof around 0.4. Patient is on Coumadinfor atrial fibrillation and is therapeutic on Coumadin at 3.patient is complaining of dysuria suprapubic pain and left lower quadrant abdominal pain relieved is significantly abnormal patient has ESBL E. coli in the urine because of which patient was started on ertapenem.pat sandrine had multiple similar episodes of urinary tract infection in the past. Patient has an echocardiogramwhich showed normal ejection fraction. No significant wall motion underwent his were appreciated. Patient was on Cardizem as subsequently was converted to sinus rhythm after Cardizem patient is actually sinus bradycardic is only on Lopressor daily at this time Review of Systems REVIEW OF SYSTEMS: CONSTITUTIONAL: No fever, no malaise, no fatigue. HEENT: No recent visual problems or hearing problems. Denied any sore throat. CARDIOVASCULAR: No chest pain, orthopnea, PND, no palpitations, no syncope. PULMONARY: No shortness of breath, no cough, no hemoptysis. GASTROINTESTINAL: No diarrhea, no nausea, no vomiting, no abdominal pain. NEUROLOGICAL: No headaches, no weakness, no numbness. HEMATOLOGICAL: Denies any bleeding or petechiae. GENITOURINARY: Denies any burning micturition, frequency, or urgency. MUSCULOSKELETAL/RHEUMATOLOGICAL: Denies any joint pain, swelling, or any muscle pain. ENDOCRINE: Denies any polyuria or polydipsia. The rest of the 14-point review of systems is negative. Past Medical History Past Medical History: Asthma, Heart Failure, CVA/TIA, Deep Vein Thrombosis (DVT), GERD/Reflux, Hypertension, Memory Impairment, Musculoskeletal Disorder, Neurologic Disorder, Osteoarthritis (OA) Additional Past Medical History / Comment(s): Ulcerative colitis, diver ticulitis, parkinson's disease, CVA which pt was unaware of having-showed on cat scan, several DVTs bilateral legs and pt states since she has had intermittent bilateral ankle edema, thrombophlebitis, PE-pt cannot recall laterallity, generalized arthritis, urinary leakage, UTIs, shingles x 2 History of Any Multi-Drug Resistant Organisms: C-DIFF, ESBL Date of last positivie culture/infection: 10/11/19 ESBL E.coli MDRO Source:: Urine Past Surgical History: Appendectomy, Cholecystectomy, Hysterectomy, Orthopedic Surgery, Tubal Ligation Additional Past Surgical History / Comment(s): L shoulder injury with surgery to repair, removals of DVTs bilateral legs, cataract removal/lens implants, colonoscopies, hemorrohoids surgery Past Anesthesia/Blood Transfusion Reactions: Postoperative Nausea & Vomiting (PONV) Additional Past Anesthesia/Blood Transfusion Reaction / Comment(s): Pt received blood with hysterectomy without reaction. Past Psychological History: Anxiety Additional Psychological History / Comment(s): Pt resides at [facility]. Daughter can no longer care for her. She moved here from [place] to live with her daughter 3 yrs ago. She ambulates with a walker. She no longer drives, her daughter takes her to [employer]. She is otherwise independent. Retired. Nonsmoker. No experience. No animal exposures. No travel. Smoking Status: Never smoker Past Alcohol Use History: None Reported Past Drug Use History: None Reported - Past Family History Father Family Medical History: Asthma, Cancer, COPD Additional Family Medical History / Comment(s): Gallbladder cancer Mother Family Medical History: Myocardial Infarction ([place]) Additional Family Medical History / Comment(s): Mother of a [place] at the age of 48 yrs. Sister(s) Additional Family Medical History / Comment(s): Sister of a blood clot at age 38 yrs-pt cannot recall specifics. Medications and Allergies Home Medications Medication Instructions Recorded Confirmed Type Omeprazole [PriLOSEC] 20 mg PO BID@0900,2100 01/11/19 10/15/19 History Sennosides-Docusate Sodium 1 tab PO DAILY PRN 02/11/19 10/15/19 History [Senokot-S] Bisacodyl [Dulcolax] 5 mg PO DAILY@0900 02/19/19 10/15/19 History Cholecalciferol [Vitamin D3 (25 2,000 unit PO DAILY@0900 02/19/19 10/15/19 History Mcg = 1000 Iu)] Carbidopa-Levodopa 25-100 mg 1 tab PO TID@0900,1300,1700 07/30/19 10/15/19 History [Sinemet 25-100 mg] Acetaminophen Tab [Tylenol Tab] 650 mg PO Q4H PRN #1 tablet 08/23/19 10/15/19 Rx Carbidopa/Levodopa [Sinemet CR 1 tab PO HS@209910/15/19 10/15/19 History 50-200 mg] Ertapenem [INVanz] 1 gm IM DAILY@0900 10/15/19 10/15/19 History Lisinopril [Zestril] 10 mg PO DAILY@0900 PRN 10/15/19 10/15/19 History Loperamide [Imodium] 2 mg PO DAILY PRN 10/15/19 10/15/19 History Mag Hydrox/Aluminum Hyd/Simeth 30 ml PO Q8H PRN 10/15/19 10/15/19 History [Mylanta Maximum Strength Liq] Melatonin 10 mg PO HS 10/15/19 10/15/19 History Midodrine HCl [ProAmantine] 2.5 mg PO BID@0900,2100 10/15/19 10/15/19 History Mirabegron [Myrbetriq] 25 mg PO DAILY@209910/15/19 10/15/19 History Warfarin [Coumadin] 1 mg PO MOWEFR 10/15/19 10/15/19 History Warfarin [Coumadin] 2.5 mg PO SUTUTHSA 10/15/19 10/15/19 History Allergies Allergy/AdvReac Type Severity Reaction Status Date / Time Influenza Virus Vaccines Allergy Swelling Verified 10/15/19 23:25 Iodinated Contrast Media Allergy Chest Pain Verified 10/15/19 23:25 [Iodinated Contrast- Oral and IV Dye] Penicillins Allergy Anaphylaxis Verified 10/15/19 23:25 Physical Exam Vitals: Vital Signs Temp Pulse Pulse Resp BP BP Pulse Ox 10/16/19 12:00 98 F 52 L 15 120/69 94 L 10/16/19 07:43 98.7 F 68 16 150/72 95 10/16/19 03:00 98.1 F 58 L 16 111/50 94 L 10/15/19 23:10 98 F 67 16 125/74 98 10/15/19 22:46 100/52 10/15/19 22:45 66 90/62 98 10/15/19 22:30 84 104/61 10/15/19 22:15 66 17 138/72 97 10/15/19 22:00 73 13 144/81 97 03/13/20 21:54 97.6 F 74 16 144/81 99 10/15/19 21:45 75 18 119/71 96 10/15/19 21:30 75 16 129/80 97 10/15/19 21:17 123 H 20 129/80 98 10/15/19 21:15 156 H 23 93/78 10/15/19 21:00 129 H 17 96/61 98 10/15/19 20:45 141 H 18 92/75 99 10/15/19 20:30 147 H 16 104/72 99 10/15/19 20:15 98 10/15/19 20:14 98 10/15/19 20:13 97.7 F 152 H 18 104/72 99 Intake and Output 10/16/19 10/16/19 10/16/19 06:59 14:59 22:59 Intake Total 118 Balance 118 Intake: Oral 118 Other: Voiding Method Bedside Commode Bedside Commode # Voids 200 Weight 67 kg PHYSICAL EXAMINATION: GENERAL: The patient is alert and oriented x3, not in any acute distress. Well developed, well nourished. HEENT: Pupils are round and equally reacting to light. EOMI. No scleral icterus. No conjunctival pallor. Normocephalic, atraumatic. No pharyngeal erythema. No thyromegaly. CARDIOVASCULAR: S1 and S2 present. No murmurs, rubs, or gallops. PULMONARY: Chest is clear to auscultation, no wheezing or crackles. ABDOMEN: Soft, nontender, nondistended, normoactive bowel sounds. No palpable organomegaly. MUSCULOSKELETAL: No joint swelling or deformity. EXTREMITIES: No cyanosis, clubbing, or pedal edema. NEUROLOGICAL: Gross neurological examination did not reveal any focal deficits. SKIN: No rashes. Results CBC & Chem 7: 10/15/19 20:35 10/15/19 20:35 Labs: Abnormal Lab Results - Last 24 Hours (Table) 10/15/19 10/15/19 10/15/19 Range/Units 20:35 20:35 20:35 PT 24.7 H (9.0-12.0) sec INR 2.5 H (<1.2) BUN 19 H (7-17) mg/dL Glucose 150 H (74-99) mg/dL Plasma Lactic Acid Abdiaziz 2.2 H* (0.7-2.0) mmol/L Troponin I (0.000-0.034) ng/mL Urine Appearance (Clear) Urine Protein (Negative) Urine Ketones (Negative) Urine Blood (Negative) Ur Leukocyte Esterase (Negative) Urine RBC (0-5) /hpf Urine WBC (0-5) /hpf Urine WBC Clumps (None) /hpf Hyaline Casts (0-2) /lpf Urine Mucus (None) /hpf 10/15/19 10/16/19 10/16/19 Range/Units 21:15 00:19 06:35 PT (9.0-12.0) sec INR (<1.2) BUN (7-17) mg/dL Glucose (74-99) mg/dL Plasma Lactic Acid Abdiaziz (0.7-2.0) mmol/L Troponin I 0.278 H* 0.442 H* (0.000-0.034) ng/mL Urine Appearance Cloudy H (Clear) Urine Protein 1+ H (Negative) Urine Ketones Trace H (Negative) Urine Blood Trace H (Negative) Ur Leukocyte Esterase Large H (Negative) Urine RBC 14 H (0-5) /hpf Urine WBC >182 H (0-5) /hpf Urine WBC Clumps Few H (None) /hpf Hyaline Casts 7 H (0-2) /lpf Urine Mucus Occasional H (None) /hpf 10/16/19 Range/Units 06:35 PT 29.0 H (9.0-12.0) sec INR 3.0 H (<1.2) BUN (7-17) mg/dL Glucose (74-99) mg/dL Plasma Lactic Acid Abdiaziz (0.7-2.0) mmol/L Troponin I (0.000-0.034) ng/mL Urine Appearance (Clear) Urine Protein (Negative) Urine Ketones (Negative) Urine Blood (Negative) Ur Leukocyte Esterase (Negative) Urine RBC (0-5) /hpf Urine WBC (0-5) /hpf Urine WBC Clumps (None) /hpf Hyaline Casts (0-2) /lpf Urine Mucus (None) /hpf Microbiology - Last 24 Hours (Table) 10/15/19 21:15 Urine Culture - Preliminary Urine,Clean Catch Assessment and Plan Plan: urinary tract infection possible: Patient does have symptoms of feet. Patient was started on ertapenem which will be continued on consul infectious disease patient had multiple similar UTIs in the past #Atrial fibrillation presently rate controlled actually in sinus bradycardic at this time patient appears to have proximal A. fib which is probably precipitated byUTI. -Elevated troponins with some chest heaviness can be related to A. fib cardiology evaluated the patient further recommendations as per them -Hypertension -History of Parkinson's History of for multiple urinary tract infections in the past -TIAs in the past -DVT. Patient does have A. fib as well patient is on anticoagulation at this time for these
[2019-10-16] MEDS: WARFARIN 1.5 MG TAB PO SCH (16:28)
[2019-10-16] MEDS: Mirabegron [Myrbetriq] 25 MG PO SCH (19:41)
[2019-10-16] MEDS: SODIUM CHLORIDE 0.9% 1,000 ML IV SCH (20:01)
[2019-10-16] MEDS: LISINOPRIL 10 MG TAB PO SCH (23:16)
[2019-10-17] MEDS ORDERED: SODIUM CHLORIDE 0.9% 500 ML 500 ML IV ONE (04:36)
[2019-10-17] MEDS ORDERED: SODIUM CHLORIDE 0.9% 1,000 ML IV SCH (04:45)
[2019-10-17 06:13] LABS: Calcium 8.2 mg/dL (8.4-10.2); Potassium 3.7 mmol/L (3.5-5.1)
[2019-10-17 06:20] LABS: INR 2.6 (<1.2); Prothrombin Time 25.3 sec (9.0-12.0)
[2019-10-17] MEDS: METOPROLOL TARTRATE 25 MG TAB PO SCH (08:58)
[2019-10-17] MEDS: PANTOPRAZOLE 40 MG TABLET PO SCH (08:58)
[2019-10-17] MEDS: CARBIDOPA-LEVODOPA 25-100 MG 1 EACH TAB PO SCH ×3 (08:59→17:40)
[2019-10-17] MEDS: LISINOPRIL 10 MG TAB PO SCH (09:02)
[2019-10-17] MEDS: ERTAPENEM 1 GM in SODIUM CHLORIDE 0.9% 50 ML IVPB SCH (09:04)
--- NOTE | 2019-10-17 09:58 | P.CONS ---
History of Present Illness - Reason for Consult Consult date: 10/16/19 ESBL e.coli UTI Requesting physician: Yuly Vogel - Chief Complaint CHEST PAIN X 1 DAY AND urinary burning x few days - History of Present Illness Patient is a 79-year-old female with a past medical history significant for recurrent urinary tract infection in this patient who did have a urine positive for ESBL E. coli last culture has been done on 10/11/2019 and those are positive for ESBL E. coli patient currently do have PICC line and is getting IV Invanz 1 g daily for her [facility] physician patient has been brought to the ER last night from [facility] for evaluation of chest pain that apparently started last night patient describes the pain to be pressure at times sharp with intensity almost 6-7 out of 10 with some radiation to the left arm with associated palpitation patient denies having any cough or URI symptom no nausea no vomiting no abdominal pain or diarrhea she did complain of some burning of urine suprapubic discomfort but no flank pain on presentation to the hospital patient has been afebrile patient did have a normal white count kidney function was normal troponin was elevated urine was positive patient is being managed by cardiology he was continued on Invanz infectious disease was consulted for further recommendation regarding her antibiotic therapy. Review of Systems Positive point has been mentioned in HPI rest of the systems are negative Past Medical History Past Medical History: Asthma, Heart Failure, CVA/TIA, Deep Vein Thrombosis (DVT), GERD/Reflux, Hypertension, Memory Impairment, Musculoskeletal Disorder, Neurologic Disorder, Osteoarthritis (OA) Additional Past Medical History / Comment(s): Ulcerative colitis, diverticulitis, parkinson's disease, CVA which pt was unaware of having-showed on cat scan, several DVTs bilateral legs and pt states since she has had intermittent bilateral ankle edema, thrombophlebitis, PE-pt cannot recall laterallity, generalized arthritis, urinary leakage, UTIs, shingles x 2 History of Any Multi-Drug Resistant Organisms: C-DIFF, ESBL Year Discovered:: 10/11/19 ESBL E.coli MDRO Source:: Urine Past Surgical History: Appendectomy, Cholecystectomy, Hysterectomy, Orthopedic Surgery, Tubal Ligation Additional Past Surgical History / Comment(s): L shoulder injury with surgery to repair, removals of DVTs bilateral legs, cataract removal/lens implants, c olonoscopies, hemorrohoids surgery Past Anesthesia/Blood Transfusion Reactions: Postoperative Nausea & Vomiting (PONV) Additional Past Anesthesia/Blood Transfusion Reaction / Comm: Pt received blood with hysterectomy without reaction. Past Psychological History: Anxiety Additional Psychological History / Comment(s): Pt resides at [facility]. Daughter can no longer care for her. She moved here from [place] to live with her daughter 3 yrs ago. She ambulates with a walker. She no longer drives, her daughter takes her to [employer]. She is otherwise independent. Retired. Nonsmoker. No experience. No animal exposures. No travel. Smoking Status: Never smoker Past Alcohol Use History: None Reported Past Drug Use History: None Reported - Past Family History Father Family Medical History: Asthma, Cancer, COPD Additional Family Medical History / Comment(s): Gallbladder cancer Mother Family Medical History: Myocardial Infarction ([place]) Additional Family Medical History / Comment(s): Mother of a [place] at the age of 48 yrs. Sister(s) Additional Family Medical History / Comment(s): Sister of a blood clot at age 38 yrs-pt cannot recall specifics. Medications and Allergies Home Medications Medication Instructions Recorded Confirmed Type Omeprazole [PriLOSEC] 20 mg PO BID@0900,2100 01/11/19 10/15/19 History Sennosides-Docusate Sodium 1 tab PO DAILY PRN 02/11/19 10/15/19 History [Senokot-S] Bisacodyl [Dulcolax] 5 mg PO DAILY@0900 02/19/19 10/15/19 History Cholecalciferol [Vitamin D3 (25 2,000 unit PO DAILY@0900 02/19/19 10/15/19 History Mcg = 1000 Iu)] Carbidopa-Levodopa 25-100 mg 1 tab PO TID@0900,1300,1700 07/30/19 10/15/19 History [Sinemet 25-100 mg] Acetaminophen Tab [Tylenol Tab] 650 mg PO Q4H PRN #1 tablet 08/23/19 10/15/19 Rx Carbidopa/Levodopa [Sinemet CR 1 tab PO HS@2100 10/15/19 10/15/19 History 50-200 mg] Ertapenem [INVanz] 1 gm IM DAILY@0900 10/15/19 10/15/19 History Lisinopril [Zestril] 10 mg PO DAILY@0900 PRN 10/15/19 10/15/19 History Loperamide [Imodium] 2 mg PO DAILY PRN 10/15/19 10/15/19 History Mag Hydrox/Aluminum Hyd/Simeth 30 ml PO Q8H PRN 10/15/19 10/15/19 History [Mylanta Maximum Strength Liq] Melatonin 10 mg PO HS 10/15/19 10/15/19 History Midodrine HCl [ProAmantine] 2.5 mg PO BID@0900,2100 10/15/19 10/15/19 History Mirabegron [Myrbetriq] 25 mg PO DAILY@2100 10/15/19 10/15/19 History Warfarin [Coumadin] 1 mg PO MOWEFR 10/15/19 10/15/19 History Warfarin [Coumadin] 2.5 mg PO SUTUTHSA 10/15/19 10/15/19 History Allergies Allergy/AdvReac Type Severity Reaction Status Date / Time Influenza Virus Vaccines Allergy Swelling Verified 10/15/19 23:25 Iodinated Contrast Media Allergy Chest Pain Verified 10/15/19 23:25 [Iodinated Contrast- Oral and IV Dye] Penicillins Allergy Anaphylaxis Verified 10/15/19 23:25 Physical Exam Vitals: Vital Signs Temp Pulse Resp BP Pulse Ox 10/16/19 20:06 97.5 F L 63 16 184/76 96 10/16/19 15:51 97.7 F 54 L 14 120/72 94 L 10/16/19 12:00 98 F 52 L 15 120/69 94 L 10/16/19 07:43 98.7 F 68 16 150/72 95 10/16/19 03:00 98.1 F 58 L 16 111/50 94 L Intake and Output 10/16/19 10/16/19 10/17/19 14:59 22:59 06:59 Intake Total 118 Output Total 120 Balance 118 -120 Intake: Oral 118 Output: Urine 120 Other: Voiding Method Bedside Commode Bedside Commode # Voids 200 GENERAL DESCRIPTION: Elderly female lying in bed, no distress. No tachypnea or accessory muscle of respiration use. HEENT: Shows Pallor , no scleral icterus. Oral mucous membrane is dry. NECK: Trachea central, no thyromegaly. LUNGS: Unlabored breathing. Clear to auscultation anteriorly. No wheeze or crackle. HEART: S1, S2, regular rate and rhythm. ABDOMEN: Soft, no tenderness , guarding or rigidity EXTREMITIES: No edema of feet. SKIN: No rash, no masses palpable. NEUROLOGICAL: The patient is awake, alert, oriented x3, mood and affect normal. Results CBC & Chem 7: 10/15/19 20:35 10/17/19 05:36 Labs: Abnormal Lab Results - Last 24 Hours (Table) 10/16/19 10/16/19 10/16/19 Range/Units 00:19 06:35 06:35 PT 29.0 H (9.0-12.0) sec INR 3.0 H (<1.2) Troponin I 0.278 H* 0.442 H* (0.000-0.034) ng/mL Microbiology - Last 24 Hours (Table) 10/15/19 20:35 Blood Culture - Preliminary Blood No Growth after 24 hours 10/15/19 21:15 Urine Culture - Preliminary Urine,Clean Catch Assessment and Plan Assessment: patient is a 79-year female with a past medical history difficult for currently with tach infection she has gone predominantly ESBL E. coli in her urine on multiple occasion and the patient did have a previous work-up including a CT of abdominal pelvis and renal ultrasound that was negative for any nephrolithiasis or hydronephrosis there was a small cyst described on the [facility] back in June 2019, with her symptoms of urinary burning and frequency and urgency likely dealing with symptomatic urinary tract infection. (1) UTI due to extended-spectrum beta lactamase (ESBL) producing Escherichia coli Current Visit: Yes Status: Acute Code(s): N39.0 - URINARY TRACT INFECTION, SITE NOT SPECIFIED; B96.29 - OTH ESCHERICHIA COLI THE CAUSE OF DISEASES CLASSD ELSWHR; Z16.12 - EXTENDED SPECTRUM BETA LACTAMASE (ESBL) RESISTANCE SNOMED Code(s): 103373987 Plan: 1-patient to continue with Invanz to finish a 10-day course of therapy we will find out from the [place] [facility] when exactly Invanz was started as a culture po sitive on 10/11/2019 2-patient may be a candidate for intravaginal estrogen cream for recurrent urinary tract infection there will be suggested on discharge We will follow on clinical condition and cultures to further adjust medication if needed Thank you for this consultation we will follow the patient along with you Time with Patient: Greater than 30
--- NOTE | 2019-10-17 10:47 | P.PN ---
Subjective Patient came in with the atrial fibrillation with rapid ventricular rate patient is presently rate controlled will be transferred out of [facility] to care patient is also on ertapenem for her UTI infectious disease evaluated the patient patient already has a PICC line and is being treated for UTI and patient need to complete total ten-day course of therapy. She probably will be discharged to rehab tomorrow Constitutional: Denied any fatigue denied any fever. Cardio vascular: denied any chest pain, palpitations Gastrointestinal denied any nausea vomiting Pulmonary: Denied any shortness of breath cough Neurologic denied any new focal deficits All inpatient medications were reviewed and appropriate changes in these medications as dictated in the interval history and assessment and plan. Objective - Vital Signs Vital signs: Vital Signs Temp 97.9 F 10/17/19 08:00 Pulse 72 10/17/19 08:00 Resp 18 10/17/19 08:00 BP 149/75 10/17/19 08:00 Pulse Ox 90 L 10/17/19 08:00 Intake & Output 10/16/19 10/17/19 10/17/19 18:59 06:59 18:59 Intake Total 118 Output Total 300 Balance 118 -300 Weight 67.3 kg Intake: Oral 118 Output: Urine 300 Other: Voiding Method Bedside Commode Bedside Commode Bedside Commode # Voids 200 1 - Exam PHYSICAL EXAMINATION: GENERAL: The patient is alert and oriented x3, not in any acute distress. Well developed, well nourished. HEENT: Pupils are round and equally reacting to light. EOMI. No scleral icterus. No conjunctival pallor. Normocephalic, atraumatic. No pharyngeal erythema. No thyromegaly. CARDIOVASCULAR: S1 and S2 present. No murmurs, rubs, or gallops. PULMONARY: Chest is clear to auscultation, no wheezing or crackles. ABDOMEN: Soft, nontender, nondistended, normoactive bowel sounds. No palpable organomegaly. MUSCULOSKELETAL: No joint swelling or deformity. EXTREMITIES: No cyanosis, clubbing, or pedal edema. NEUROLOGICAL: Gross neurological examination did not reveal any focal deficits. SKIN: No rashes. - Labs CBC & Chem 7: 10/15/19 20:35 10/17/19 05:36 Labs: Abnormal Lab Results - Last 24 Hours (Table) 10/17/19 10/17/19 Range/Units 05:36 05:36 PT 25.3 H (9.0-12.0) sec INR 2.6 H (<1.2) Chloride 109 H (98-107) mmol/L BUN 24 H (7-17) mg/dL Calcium 8.2 L (8.4-10.2) mg/dL Microbiology - Last 24 Hours (Table) 10/15/19 21:15 Urine Culture - Final Urine,Clean Catch 10/15/19 20:35 Blood Culture - Preliminary Blood No Growth after 24 hours Assessment and Plan Plan: #Atrial fibrillation presently rate controlled actually mild sinus bradycardic at this time patient appears to have proximal A. fib which is probably precipitated byUTI. -UTI for which patient is already on antibiotics we will complete 10 day of therapy urine cultures this time are negative. Patient will discharge to subacute rehabilitation tomorrow patient has ESBL E. coli from her previous hospital admission -Elevated troponins with some chest heaviness can be related to A. fib cardiology evaluated the patient further recommendations as per them -Hypertension -History of Parkinson's History of for multiple urinary tract infections in the past -TIAs in the past -DVT. Patient does have A. fib as well. patient is on anticoagulation at this time for these
[2019-10-17] MEDS: amLODIPine 5 MG TAB PO SCH (10:54)
--- NOTE | 2019-10-17 12:18 | PN ---
PROGRESS NOTE This patient is admitted with chest discomfort. The patient was found to be in atrial fibrillation with rapid ventricular response. The patient is doing better. She also has been treated for urinary tract infections. Denies any chest pain or shortness of breath at present. First and second heart sounds are normal. Heart rate is 72 per minute. Lungs are clear to auscultation and percussion. The patient has a mild elevation in the troponin which is probably type 2 myocardial injury secondary to atrial fibrillation and rapid ventricular response. We will continue the patient on medical treatment. The patient can be evaluated with a stress test as an outpatient to rule out any significant underlying coronary artery disease. The patient's blood pressure remains elevated. Amlodipine 5 mg daily is added. The patient is currently taking metoprolol once a day. We will add Lipitor 20 mg daily. The patient is already on Coumadin. In view of that, we will not add aspirin at present. MMODL / IJN: [id number] /
[2019-10-17] MEDS: ATORVASTATIN 40 MG TAB PO SCH (12:21)
[2019-10-17] MEDS: KETOROLAC 30 MG/ML 1 ML VIAL IVP PRN (16:25)
[2019-10-17] MEDS: WARFARIN 1.5 MG TAB PO SCH (17:40)
[2019-10-17] MEDS: Mirabegron [Myrbetriq] 25 MG PO SCH (20:01)
[2019-10-17] MEDS: MELATONIN 5 MG TABLET PO SCH (20:11)
[2019-10-17] MEDS: CARBIDOPA-LEVODOPA ER 50-200MG 1 EACH TABLET.ER PO SCH (20:11)
[2019-10-18] MEDS: KETOROLAC 30 MG/ML 1 ML VIAL IVP PRN ×3 (01:49→21:11)
[2019-10-18] MEDS: PANTOPRAZOLE 40 MG TABLET PO SCH (06:40)
[2019-10-18 07:20] LABS: INR 2.1 (<1.2); Prothrombin Time 20.5 sec (9.0-12.0)
[2019-10-18] MEDS ORDERED: IOPAMIDOL CONTRAST (ORAL USE) VIAL PO PRN (08:28)
--- NOTE | 2019-10-18 08:48 | PN ---
PROGRESS NOTE DATE OF SERVICE: 10/17/2019 REASON FOR FOLLOWUP: An ESBL E coli urinary tract infection. INTERVAL COURSE: The patient is currently afebrile. She has been breathing comfortably. The patient did mention she did have diarrhea yesterday; however, no diarrhea has been reported today. She has come in complaining of some abdominal pain. No significant diarrhea, but no vomiting. No chest pain, shortness of breath or cough. PHYSICAL EXAMINATION: Blood pressure 170/68 with pulse of 66, temperature 98, she is 92% on room air. General description is a middle-aged female, lying in bed in no distress. RESPIRATORY SYSTEM: Unlabored breathing, clear to auscultation anteriorly. HEART: S1, S2. Regular rate and rhythm. . ABDOMEN: Soft, no tenderness. No guarding or rigidity. LABS: BUN of 24, creatinine is 0.74. Culture come back negative. Blood culture negative so far. DIAGNOSTIC IMPRESSION/PLAN: 1. Patient with recent diagnosis of is ESBL E. coli urinary tract infection in the outpatient setting with the patient did have positive culture with ESBL. Subsequently, the patient did get a PICC line. He is currently getting Invanz 1 g daily to continue to finish a course of therapy. 2. Monitor clinical course closely: 3. Patient diarrhea yesterday. No diarrhea has been reported today. Waiting for Clostridium difficile. MMODL / IJN: [id number] /
[2019-10-18] MEDS: METOPROLOL TARTRATE 50 MG TAB PO SCH (09:33)
[2019-10-18] MEDS: amLODIPine 5 MG TAB PO SCH (09:33)
[2019-10-18] MEDS: LISINOPRIL 10 MG TAB PO SCH (09:33)
[2019-10-18] MEDS: CARBIDOPA-LEVODOPA 25-100 MG 1 EACH TAB PO SCH ×3 (09:33→16:28)
[2019-10-18] MEDS: ATORVASTATIN 40 MG TAB PO SCH (09:33)
[2019-10-18] MEDS: ERTAPENEM 1 GM in SODIUM CHLORIDE 0.9% 50 ML IVPB SCH (09:34)
--- NOTE | 2019-10-18 10:15 | XR ---
EXAMINATION TYPE: XR chest 1V DATE OF EXAM: 10/18/2019 COMPARISON: 10/15/2019 HISTORY: Congestive heart failure. Follow-up exam. TECHNIQUE: Single frontal view of the chest is obtained. FINDINGS: There is a new trace left pleural effusion blunting the costophrenic angle and associated left basilar airspace disease. Copious soft tissues overlying the right lower lung. Right-sided centr al PICC is stable in position terminating in the distal superior vena cava. Small marginal are slight ly hemidiaphragm elevation. Cardiomediastinal silhouette appears stable. IMPRESSION: New trace left pleural effusion and probable associated left basilar atelectasis. Otherw ise stable exam.
--- NOTE | 2019-10-18 10:25 | P.PN ---
Subjective Patient came in with the atrial fibrillation with rapid ventricular rate patient is presently rate controlled will be transferred [facility] care patient is also on ertapenem for her UTI infectious disease evaluated the patient patient already has a PICC line and is being treated for UTI and patient need to complete total ten-day course of therapy. She probably will be discharged to rehab tomorrow 10/18/2019 Patient is still complaining of "quadrant abdominal pain her heart rate is well controlled and patient is already on ertapenem. I tried to order a contrast CT of the abdomen and pelvis but patient is ALLERGIC to contrast media will obtain a noncontrast CT of the abdomen patient says her abdominal pain is significant. Although her left lower quadrant abdominal and is minimally tender no rebound rigidity and soft Constitutional: Denied any fatigue denied any fever. Cardio vascular: denied any chest pain, palpitations Gastrointestinal denied any nausea vomiting Pulmonary: Denied any shortness of breath cough Neurologic denied any new focal deficits All inpatient medications were reviewed and appropriate changes in these medications as dictated in the interval history and assessment and plan. Objective - Vital Signs Vital signs: Vital Signs Temp 98.1 F 10/18/19 08:00 Pulse 61 10/18/19 08:00 Resp 16 10/18/19 08:00 BP 150/76 10/18/19 08:00 Pulse Ox 92 L 10/18/19 08:00 Intake & Output 10/17/19 10/18/19 10/18/19 18:59 06:59 18:59 Intake Total 825 118 Output Total 300 350 Balance 525 -350 118 Weight 68.1 kg Intake: IV 100 Ertapenem 1 gm In Sodium 100 Chloride 0.9% 50 ml @ 100 mls/hr IVPB DAILY [facility] Rx #:[id number] Oral 725 118 Output: Urine 300 350 Other: Voiding Method Diaper Diaper # Voids 1 # Bowel Movements 1 - Exam PHYSICAL EXAMINATION: GENERAL: The patient is alert and oriented x3, not in any acute distress. Well developed, well nourished. HEENT: Pupils are round and equally reacting to light. EOMI. No scleral icterus. No conjunctival pallor. Normocephalic, atraumatic. No pharyngeal erythema. No thyromegaly. CARDIOVASCULAR: S1 and S2 present. No murmurs, rubs, or gallops. PULMONARY: Chest is clear to auscultation, no wheezing or crackles. ABDOMEN: Soft, no tenderness in the left lower quadrant MUSCULOSKELETAL: No joint swelling or deformity. EXTREMITIES: No cyanosis, clubbing, or pedal edema. NEUROLOGICAL: Gross neurological examination did not reveal any focal deficits. SKIN: No rashes. - Labs CBC & Chem 7: 10/15/19 20:35 10/17/19 05:36 Labs: Abnormal Lab Results - Last 24 Hours (Table) 10/18/19 Range/Units 05:34 PT 20.5 H (9.0-12.0) sec INR 2.1 H (<1.2) Microbiology - Last 24 Hours (Table) 10/15/19 20:35 Blood Culture - Preliminary Blood No Growth after 48 hours Assessment and Plan Plan: #Atrial fibrillation presently rate controlled actually mild sinus bradycardic at this time patient appears to have proximal -UTI for which patient is already on antibiotics we will complete 10 day of therapy urine cultures this time are negative. -Left lower quadrant abdominal pain lasted a CAT scan to rule out any diverticulitis. -Elevated troponins with some chest heaviness can be related to A. fib cardiology evaluated the patient further recommendations as per them -Hypertension -History of Parkinson's History of for multiple urinary tract infections in the past -TIAs in the past -DVT. Patient does have A. fib as well. patient is on anticoagulation at this time for these
--- NOTE | 2019-10-18 10:37 | CT ---
EXAMINATION TYPE: CT abdomen pelvis wo con DATE OF EXAM: 10/18/2019 COMPARISON: 06/27/2019 HISTORY: Ulcerative colitis CT DLP: 747.6 mGycm Automated exposure control for dose reduction was used. TECHNIQUE: Helical acquisition of images was performed from the lung bases through the pelvis. FINDINGS: LUNG BASES: Bilateral consolidation and pleural effusion noted.. LIVER/GB: Hypodensity within the left lobe of the liver is too small to characterize but likely relat ed to a cyst.. PANCREAS: No significant abnormality is seen. SPLEEN: Tiny accessory spleen in the left upper quadrant noted.. ADRENALS: There is a 1 cm area of nodularity involving the left adrenal gland stable and most compati ble with a benign adenoma. KIDNEYS: There is a stable indeterminant right renal lesion measuring 1.4 cm by noncontrast technique . Stable cortical lobulation. 1 cm fat lesion in the posterior cortex left kidney ADENOPATHY: None visualized. OSSEOUS STRUCTURES: Hypertrophic and degenerative change of the vertebral column. BOWEL: Suggestion of a rectal tube or tubing along the peritoneum correlate clinically. Diverticulos is of the colon with no CT evidence of diverticulitis. OTHER: Soft tissue calcifications are seen compatible granuloma. Aorta of normal caliber IMPRESSION: 1. Diverticulosis with no CT evidence of diverticulitis or colitis. 2. Bilateral consolidation and small effusion.
[2019-10-18] MEDS ORDERED: WARFARIN 2 MG TAB PO SCH (18:00)
[2019-10-18] MEDS: CARBIDOPA-LEVODOPA ER 50-200MG 1 EACH TABLET.ER PO SCH (21:11)
[2019-10-18] MEDS: MELATONIN 5 MG TABLET PO SCH (21:11)
--- NOTE | 2019-10-18 22:29 | PN ---
PROGRESS NOTE DATE OF SERVICE: 10/18/2019. REASON FOR FOLLOWUP: ESBL E coli urinary tract infection infection. INTERVAL HISTORY: The patient is currently afebrile. She has been breathing comfortably. Denies having any chest pain or shortness of breath. No cough. Some vague abdominal pain, but improved and denies any further diarrhea. PHYSICAL EXAMINATION: Blood pressure is 117/58 with a pulse of 86, temperature 97.8. She is 93% on room air. General description is an elderly female lying in bed in no distress. Respiratory system: Unlabored breathing. Clear to auscultation anteriorly. Heart S1, S2. Regular rate and rhythm. Abdomen soft, no tenderness. LABS: INR is 2.1, creatinine 0.74. DIAGNOSTIC IMPRESSION AND PLAN: Patient with ESBL E coli urinary tract infection, in outpatient setting for which the patient is currently getting Invanz to continue finish 10 day course of therapy and close outpatient followup. MMODL / IJN: [id number] /
[2019-10-18] MEDS: Mirabegron [Myrbetriq] 25 MG PO SCH (23:28)
[2019-10-19] MEDS: LISINOPRIL 10 MG TAB PO SCH (05:26)
[2019-10-19] MEDS: KETOROLAC 30 MG/ML 1 ML VIAL IVP PRN (05:32)
[2019-10-19 06:21] LABS: INR 2.3 (<1.2); Prothrombin Time 22.1 sec (9.0-12.0)
[2019-10-19] MEDS: amLODIPine 5 MG TAB PO SCH (06:42)
[2019-10-19] MEDS: PANTOPRAZOLE 40 MG TABLET PO SCH (06:42)
[2019-10-19] MEDS: METOPROLOL TARTRATE 50 MG TAB PO SCH (10:04)
[2019-10-19] MEDS: CARBIDOPA-LEVODOPA 25-100 MG 1 EACH TAB PO SCH ×2 (10:04→13:15)
[2019-10-19] MEDS: ERTAPENEM 1 GM in SODIUM CHLORIDE 0.9% 50 ML IVPB SCH (10:04)
[2019-10-19] MEDS: ATORVASTATIN 40 MG TAB PO SCH (10:05)
[2019-10-19 11:39] VITALS: RESP 20; TEMP 97.7
[2019-10-19 13:14] VITALS: BP 108/62; PULSE 52
--- NOTE | 2019-10-19 14:04 | PN ---
PROGRESS NOTE DATE OF SERVICE: 10/19/2019 REASON FOR FOLLOWUP: ESBL E coli infection. INTERVAL HISTORY: The patient is currently afebrile. Patient has been breathing comfortably. Patient denies having any chest pain, shortness of breath, no cough, no abdominal and no diarrhea. PHYSICAL EXAMINATION: Blood pressure is 108/62 with a pulse of 52, temperature of 97,6, she is 97% on room air. General description in an elderly female up in the bed, in no distress. RESPIRATORY SYSTEM: Unlabored breathing, clear to auscultation anteriorly. HEART: S1, S2. Regular rate and rhythm. ABDOMEN: Soft, no tenderness. EXTREMITIES: No edema of the feet. DIAGNOSTIC IMPRESSION AND PLAN: Patient with ESBL E. coli urinary tract infection in the outpatient setting, currently taking Invanz to confirm for about 1 week to continue course of therapy. Continue supportive care. MMODL / IJN: [id number] /
--- NOTE | 2019-10-19 14:46 | P.DS ---
Providers Date of admission: 10/15/19 22:19 Expected date of discharge: 10/19/19 Attending physician: Sandro Higuera Consults: 10/15/19 22:19 Consult Physician Routine Consulting Provider: Lottie Wong Consult Reason/Comments: New-onset A. fib with RVR, chest pain Do you want consulting provider notified?: Yes 10/16/19 15:18 Consult Physician Routine Consulting Provider: Jarocho Alas Consult Reason/Comments: UTI Do you want consulting provider notified?: Yes Primary care physician: Jesus Cooney Hospital Course: Final diagnosis -Atrial fibrillation presently rate controlled, appears to have proximal -UTI for which patient is already on antibiotics -Left lower quadrant abdominal CAT scan to ruled out any diverticulitis. -Elevated troponins with some chest heaviness -History of Parkinson's -History of for multiple urinary tract infections in the past -TIAs in the past -DVT Discharge disposition Patient is being discharged in a stable condition with guarded prognosis to [facility]. Patient is a resident there. Patient will continue with IV antibiotics in the form of Invanz per infectious disease recommendations. Total time taken is 35 minutes. History of present illness Patient came in with the atrial fibrillation with rapid ventricular rate patient is presently rate controlled will be transferred out of [facility] to care patient is also on ertapenem for her UTI infectious disease evaluated the patient patient already has a PICC line and is being treated for UTI and patient need to complete total ten-day course of therapy. She probably will be discharged to rehab tomorrow 10/18/2019 Patient is still complaining of "quadrant abdominal pain her heart rate is well controlled and patient is already on ertapenem. I tried to order a contrast CT of the abdomen and pelvis but patient is ALLERGIC to contrast media will obtain a noncontrast CT of the abdomen patient says her abdominal pain is significant. Although her left lower quadrant abdominal and is minimally tender no rebound rigidity and soft 10/19/2019 Currently no reports of chest pain, shortness of breath, or palpitations. Patient is afebrile. No reports of nausea or vomiting and patient is tolerating diet. Patient continues to have some mild abdominal discomfort although CT of the abdomen was done showing no signs of diverticulitis or colitis with some diverticulosis noted. Patient will continue on oral Protonix in the outpatient setting. Patient will also continue on Coumadin and will need repeat PT/INR to monitor Coumadin therapy. Patient will also continue on IV antibiotics with a PICC line in the form of Invanz per infectious disease recommendations. Guarded prognosis. On exam vital signs are stable. Temp is 97.7 F, pulse is 66, respirations are 20, blood pressure is 108/62, oxygen saturation is 97 % on 2 L via nasal cannula. Cardio S1, S2 are muffled. Respiratory shows diminished breath sounds at the bases with a few scattered rhonchi noted. Abdomen is soft with mild tenderness noted on exam. Nervous system shows mild diffuse weakness. Please refer to medication reconciliation sheet for a list of medications. Patient Condition at Discharge: Stable Plan - Discharge Summary Discharge Rx Participant: No New Discharge Prescriptions: New Atorvastatin [Lipitor] 40 mg PO DAILY tab Metoprolol Tartrate [Lopressor] 50 mg PO DAILY tab amLODIPine [Norvasc] 5 mg PO DAILY tab Pantoprazole Sodium [Protonix] 40 mg PO DAILY #30 tablet.dr Paige [SEAanz] 1 gm IVPB Q24H #7 bag Continue Omeprazole [PriLOSEC] 20 mg PO BID@0900,2100 Sennosides-Docusate Sodium [Senokot-S] 1 tab PO DAILY PRN PRN Reason: Constipation Cholecalciferol [Vitamin D3 (25 Mcg = 1000 Iu)] 2,000 unit PO DAILY@0900 Bisacodyl [Dulcolax] 5 mg PO DAILY@0900 Carbidopa-Levodopa 25-100 mg [Sinemet 25-100 mg] 1 tab PO TID@0900,1300,1700 Acetaminophen Tab [Tylenol] 650 mg PO Q4H PRN #1 tablet PRN Reason: Pain Carbidopa/Levodopa [Sinemet CR 50-200 mg] 1 tab PO HS@2100 Ertapenem [INVanz] 1 gm IM DAILY@0900 Lisinopril [Zestril] 10 mg PO DAILY@0900 PRN PRN Reason: HOLD IF BP LESS THAN 100 Loperamide [Imodium] 2 mg PO DAILY PRN PRN Reason: Loose Stool Mag Hydrox/Aluminum Hyd/Simeth [Mylanta Maximum Strength Liq] 30 ml PO Q8H PRN PRN Reason: UPSET STOMACH Melatonin 10 mg PO HS Mirabegron [Myrbetriq] 25 mg PO DAILY@2100 Warfarin [Coumadin] 2.5 mg PO SUTUTHSA Warfarin [Coumadin] 1 mg PO MOWEFR Discontinued Midodrine HCl [ProAmantine] 2.5 mg PO BID@0900,2099 Discharge Medication List Omeprazole [PriLOSEC] 20 mg PO BID@0900,2100 01/11/19 [History] Sennosides-Docusate Sodium [Senokot-S] 1 tab PO DAILY PRN 02/11/19 [History] Bisacodyl [Dulcolax] 5 mg PO DAILY@89902/19/19 [History] Cholecalciferol [Vitamin D3 (25 Mcg = 1000 Iu)] 2,000 unit PO DAILY@89902/19/19 [History] Carbidopa-Levodopa 25-100 mg [Sinemet 25-100 mg] 1 tab PO TID@0900,1300,1700 07/30/19 [History] Acetaminophen Tab [Tylenol] 650 mg PO Q4H PRN #1 tablet 08/23/19 [Rx] Carbidopa/Levodopa [Sinemet CR 50-200 mg] 1 tab PO HS@209910/15/19 [History] Ertapenem [INVanz] 1 gm IM DAILY@0910/15/19 [History] Lisinopril [Zestril] 10 mg PO DAILY@09 PRN 10/15/19 [History] Loperamide [Imodium] 2 mg PO DAILY PRN 10/15/19 [History] Mag Hydrox/Aluminum Hyd/Simeth [Mylanta Maximum Strength Liq] 30 ml PO Q8H PRN 10/15/19 [History] Melatonin 10 mg PO HS 10/15/19 [History] Mirabegron [Myrbetriq] 25 mg PO DAILY@209910/15/19 [History] Warfarin [Coumadin] 1 mg PO MOWEFR 10/15/19 [History] Warfarin [Coumadin] 2.5 mg PO SUTUTHSA 10/15/19 [History] Atorvastatin [Lipitor] 40 mg PO DAILY tab 10/19/19 [Rx] Ertapenem [INVanz] 1 gm IVPB Q24H #7 bag 10/19/19 [Rx] Metoprolol Tartrate [Lopressor] 50 mg PO DAILY tab 10/19/19 [Rx] Pantoprazole Sodium [Protonix] 40 mg PO DAILY #30 tablet. 10/19/19 [Rx] amLODIPine [Norvasc] 5 mg PO DAILY tab 10/19/19 [Rx] Follow up Appointment(s)/Referral(s): Jesus Cooney MD [Primary Care Provider] - 1-2 days (Office closed - patient to call & schedule appt. ) Orlando Hannah MD [STAFF PHYSICIAN] - 2 Weeks Ambulatory/Diagnostic Orders: Prothrombin Time INR [LAB.AMB] Time Frame: 2 Days, Location: None Selected Activity/Diet/Wound Care/Special Instructions: Patient is going to [facility] on the [place] Continue with IV antibiotic therapy per infectious disease Activity as tolerated Continue with heart healthy diet Monitor PT/INR for Coumadin therapy Follow-up with cardiology in the outpatient setting in 1-2 weeks Discharge Disposition: TRANSFER TO SNF/ECF
[2019-10-19] MEDS: ACETAMINOPHEN TAB 325 MG TAB PO PRN (14:56)
== END 2019-10-19 16:10 | DRG 281 ==
LOC: EC 20:08 → 3SCARD 22:19
PROVIDERS: ADMIT Hospitalist; ATTEND Hospitalist
DX: I48.0 Paroxysmal atrial fibrillation (principal); I21.A1 Myocardial infarction type 2; K51.90 Ulcerative colitis, unspecified, without complications; N39.0 Urinary tract infection, site not specified; Z16.12 Extended spectrum beta lactamase (ESBL) resistance; B96.20 Unspecified Escherichia coli [E. coli] as the cause of diseases classified elsewhere; F02.80 Dementia in other diseases classified elsewhere, unspecified severity, without behavioral disturbance, psychotic disturbance, mood disturbance, and anxiety; G20 Parkinson's disease; I11.0 Hypertensive heart disease with heart failure; I50.9 Heart failure, unspecified; J45.909 Unspecified asthma, uncomplicated; K21.9 Gastro-esophageal reflux disease without esophagitis; M19.90 Unspecified osteoarthritis, unspecified site; F41.1 Generalized anxiety disorder; K57.90 Diverticulosis of intestine, part unspecified, without perforation or abscess without bleeding; R19.7 Diarrhea, unspecified; R10.32 Left lower quadrant pain; Z74.01 Bed confinement status; Z79.01 Long term (current) use of anticoagulants; Z79.899 Other long term (current) drug therapy; Z90.710 Acquired absence of both cervix and uterus; Z87.440 Personal history of urinary (tract) infections; Z86.73 Personal history of transient ischemic attack (TIA), and cerebral infarction without residual deficits; Z86.711 Personal history of pulmonary embolism; Z88.0 Allergy status to penicillin; Z88.7 Allergy status to serum and vaccine; Z91.041 Radiographic dye allergy status; Z90.49 Acquired absence of other specified parts of digestive tract; Z98.51 Tubal ligation status; Z98.42 Cataract extraction status, left eye; Z98.41 Cataract extraction status, right eye; Z96.1 Presence of intraocular lens; Z82.5 Family history of asthma and other chronic lower respiratory diseases; Z82.49 Family history of ischemic heart disease and other diseases of the circulatory system; Z80.0 Family history of malignant neoplasm of digestive organs
CPT/HCPCS: 36415; 71045; 71046; 74176; 80048; 80053; 81001; 83605; 83735; 83880; 84443; 84484; 85025; 85610; 85730; 87040; 87086; 93005; 93306; 96365; 96366; 96376; 99291

== ENCOUNTER 2020-02-24 06:25 | Observation (INO) | payer MEDICARE, OTHER ==
[2020-02-24] MEDS ORDERED: SODIUM CHLORIDE 0.9% 1,000 ML IV ONE (06:46)
[2020-02-24] MEDS ORDERED: MORPHINE SULFATE 2 MG/ML SYRINGE IVP ONE (06:46)
[2020-02-24] MEDS ORDERED: MORPHINE SULFATE 4 MG/ML SYRINGE IVP STA (06:46)
--- NOTE | 2020-02-24 06:50 | ED ---
General Adult HPI - General Source: patient, EMS, RN notes reviewed, old records reviewed Mode of arrival: EMS Limitations: altered mental status <Laura Skinner - Last Filed: 02/24/20 08:24> <Juventino Solorio - Last Filed: 02/24/20 08:36> - General Chief complaint: Chest Pain Stated complaint: Chest Pain Time Seen by Provider: 02/24/20 06:31 - History of Present Illness Initial comments: Patient is a 79-year-old female with a history of Parkinson's disease living at [facility] [place]. She presents emergency department today with onset of chest pain one hour prior to arrival with pains down the left arm. Patient reports that she's had one episode like this before and Patient was found to be in A. fib with RVR. Patient states that she saw cardiac cardiology associates the hospital but does not remember following up with one since that time. She states that the nurses at [facility] gave HER 2 tablets of nitroglycerin report no significant relief of her pain or symptoms. She does re port she is ALLERGIC to aspirin causes difficulty in breathing. Patient states that she feels slightly nauseated but denies any significant shortness of breath or worsening coughs. (Laura Skinner) - Related Data Home Medications Medication Instructions Recorded Confirmed Omeprazole [PriLOSEC] 20 mg PO BID@0900,2100 01/11/19 10/15/19 Sennosides-Docusate Sodium 1 tab PO DAILY PRN 02/11/19 10/15/19 [Senokot-S] Cholecalciferol [Vitamin D3 (25 2,000 unit PO DAILY@0902/19/19 10/15/19 Mcg = 1000 Iu)] bisacodyL [Dulcolax] 5 mg PO DAILY@0900 02/19/19 10/15/19 Carbidopa-Levodopa 25-100 mg 1 tab PO TID@0900,1300,1700 07/30/19 10/15/19 [Sinemet 25-100 mg] Carbidopa/Levodopa [Sinemet CR 1 tab PO HS@209910/15/19 10/15/19 50-200 mg] Ertapenem [INVanz] 1 gm IM DAILY@0910/15/19 10/15/19 Lisinopril [Zestril] 10 mg PO DAILY@0900 PRN 10/15/19 10/15/19 Loperamide [Imodium] 2 mg PO DAILY PRN 10/15/19 10/15/19 Mag Hydrox/Aluminum Hyd/Simeth 30 ml PO Q8H PRN 10/15/19 10/15/19 [Mylanta Maximum Strength Liq] Melatonin 10 mg PO HS 10/15/19 10/15/19 Mirabegron [Myrbetriq] 25 mg PO DAILY@2100 10/15/19 10/15/19 Warfarin [Coumadin] 1 mg PO MOWEFR 10/15/19 10/15/19 Warfarin [Coumadin] 2.5 mg PO SUTUTHSA 10/15/19 10/15/19 Previous Rx's Medication Instructions Recorded Acetaminophen Tab [Tylenol] 650 mg PO Q4H PRN #1 tablet 08/23/19 Atorvastatin [Lipitor] 40 mg PO DAILY tab 10/19/19 Ertapenem [INVanz] 1 gm IVPB Q24H #7 bag 10/19/19 Metoprolol Tartrate [Lopressor] 50 mg PO DAILY tab 10/19/19 Pantoprazole Sodium [Protonix] 40 mg PO DAILY #30 tablet. 10/19/19 amLODIPine [Norvasc] 5 mg PO DAILY tab 10/19/19 Allergies Allergy/AdvReac Type Severity Reaction Status Date / Time Influenza Virus Vaccines Allergy Swelling Verified 02/24/20 06:34 Iodinated Contrast Media Allergy Chest Pain Verified 02/24/20 06:34 [Iodinated Contrast- Oral and IV Dye] Penicillins Allergy Anaphylaxis Verified 02/24/20 06:34 Review of Systems ROS Other: All systems not noted in ROS Statement are negative. <Laura Skinner - Last Filed: 02/24/20 08:24> ROS Other: All systems not noted in ROS Statement are negative. <Juventino Solorio - Last Filed: 02/24/20 08:36> ROS Statement: Those systems with pertinent positive or pertinent negative responses have been documented in the HPI. Past Medical History Past Medical History: Asthma, Heart Failure, CVA/TIA, Deep Vein Thrombosis (DVT), GERD/Reflux, Hypertension, Memory Impairment, Musculoskeletal Disorder, Neurologic Disorder, Osteoarthritis (OA) Additional Past Medical History / Comment(s): Ulcerative colitis, diverticulitis, parkinson's disease, CVA which pt was unaware of having-showed on cat scan, several DVTs bilateral legs and pt states since she has had intermittent bilateral ankle edema, thrombophlebitis, PE-pt cannot recall laterallity, generalized arthritis, urinary leakage, UTIs, shingles x 2 History of Any Multi-Drug Resistant Organisms: ESBL Date of last positivie culture/infection: 11/27/19 ESBL E.coli MDRO Source:: Urine Past Surgical History: Appendectomy, Cholecystectomy, Hysterectomy, Orthopedic Surgery, Tubal Ligation Additional Past Surgical History / Comment(s): L shoulder injury with surgery to repair, removals of DVTs bilateral legs, cataract removal/lens implants, colonoscopies, hemorrohoids surgery Past Anesthesia/Blood Transfusion Reactions: Postoperative Nausea & Vomiting (PONV) Additional Past Anesthesia/Blood Transfusion Reaction / Comment(s): Pt received blood with hysterectomy without reaction. Past Psychological History: Anxiety Smoking Status: Never smoker Past Alcohol Use History: None Reported Past Drug Use History: None Reported - Past Family History Father Family Medical History: Asthma, Cancer, COPD Additional Family Medical History / Comment(s): Gallbladder cancer Mother Family Medical History: Myocardial Infarction ([place]) Additional Family Medical History / Comment(s): Mother of a [place] at the age of 48 yrs. Sister(s) Additional Family Medical History / Comment(s): Sister of a blood clot at age 38 yrs-pt cannot recall specifics. <Laura Skinner - Last Filed: 02/24/20 08:24> General Exam Limitations: altered mental status General appearance: alert, in no apparent distress Head exam: Present: atraumatic, normocephalic, normal inspection Eye exam: Present: normal appearance, PERRL, EOMI. Absent: scleral icterus, conjunctival injection, periorbital swelling ENT exam: Present: normal exam, mucous membranes moist Neck exam: Present: normal inspection. Absent: tenderness, meningismus, lymphadenopathy Respiratory exam: Present: normal lung sounds bilaterally. Absent: respiratory distress, wheezes, rales, rhonchi, stridor Cardiovascular Exam: Present: regular rate, normal rhythm, normal heart sounds. Absent: systolic murmur, diastolic murmur, rubs, gallop, clicks GI/Abdominal exam: Present: soft, normal bowel sounds. Absent: distended, tenderness, guarding, rebound, rigid Extremities exam: Present: normal inspection, full ROM, normal capillary refill, other (Peripheral pulses in all extremities.). Absent: tenderness, pedal edema, joint swelling, calf tenderness Back exam: Present: normal inspection Neurological exam: Present: alert, oriented X3, CN II-XII intact Psychiatric exam: Present: normal affect, normal mood <Laura Skinner - Last Filed: 02/24/20 08:24> - General Exam Comments Initial Comments: 79-year-old female. Alert and oriented 3. Patient appears in mild discomfort. (Laura Skinner) Course Vital Signs 02/24/20 02/24/20 06:29 07:27 Temperature 97.8 F Pulse Rate 68 66 Respiratory 16 18 Rate Blood Pressure 138/60 130/77 O2 Sat by Pulse 95 97 Oximetry EKG Findings - EKG Comments: EKG Findings:: EKG performed at 6:45 AM shows normal sinus rhythm septal infarct age undetermined. Abnormal EKG. Ventricular rate of 69 beats were minute period. Intervals 134 ms. QS duration is 86 ms. QT QTc is 378/405 ms. <Laura Skinner - Last Filed: 02/24/20 08:24> Medical Decision Making - Lab Data Result diagrams: 02/24/20 07:06 02/24/20 07:06 - Radiology Data Radiology results: report reviewed <Laura Skinner - Last Filed: 02/24/20 08:24> - Lab Data Result diagrams: 02/24/20 07:06 02/24/20 07:06 <Juventino Solorio - Last Filed: 02/24/20 08:36> - Medical Decision Making 79-year-old female presents to the emergency department today for evaluation for onset of chest pain reading down the left arm 1 hour prior to arrival. She was given nitro at [facility] [place] the [place] with no significant improvement of symptoms. Pain seems to be sharp and stabbing in nature. Patient reports she has an ALLERGY to aspirin and will not take that at this time. Patient was given IV fluids labwork obtained. Initial troponin test is negative. EKG showed no acute changes. Patient's chest x-ray shows improvement of atelectasis and infiltrates. On reevaluation patient's resting in bed. I informed her with the concern for onset of chest pain one hour prior to arrival description of symptom s reviewed down the left arm would like to admit the Patient for observation. Discussed the case with Dr. Solorio who discussed with the [facility] hospitalist. (Laura Skinner) Patient reevaluated and reexamined by myself, Dr. Solorio. I do agree with PA findings. This includes diagnostic interpretation and treatment plan. Patient is resting comfortably in bed. Patient updated on results and plan. Case was discussed in detail with Dr. gudino, will admit covering for Dr. Cooney. (Juventino Solorio) - Lab Data Lab Results 02/24/20 02/24/20 02/24/20 Range/Units 07:06 07:06 07:06 WBC 6.7 (3.8-10.6) k/uL RBC 4.43 (3.80-5.40) m/uL Hgb 13.7 (11.4-16.0) gm/dL Hct 40.3 (34.0-46.0) % MCV 90.9 (80.0-100.0) fL MCH 31.0 (25.0-35.0) pg MCHC 34.1 (31.0-37.0) g/dL RDW 13.7 (11.5-15.5) % Plt Count 243 (150-450) k/uL Neutrophils % 61 % Lymphocytes % 30 % Monocytes % 5 % Eosinophils % 2 % Basophils % 1 % Neutrophils # 4.1 (1.3-7.7) k/uL Lymphocytes # 2.0 (1.0-4.8) k/uL Monocytes # 0.3 (0-1.0) k/uL Eosinophils # 0.1 (0-0.7) k/uL Basophils # 0.1 (0-0.2) k/uL PT 17.4 H (9.0-12.0) sec INR 1.8 H (<1.2) APTT 25.9 (22.0-30.0) sec Sodium 139 (137-145) mmol/L Potassium 3.8 (3.5-5.1) mmol/L Chloride 104 (98-107) mmol/L Carbon Dioxide 29 (22-30) mmol/L Anion Gap 6 mmol/L BUN 16 (7-17) mg/dL Creatinine 0.63 (0.52-1.04) mg/dL Est GFR (CKD-EPI)AfAm >90 (>60 ml/min/1.73 sqM) Est GFR (CKD-EPI)NonAf 86 (>60 ml/min/1.73 sqM) Glucose 98 (74-99) mg/dL Calcium 9.0 (8.4-10.2) mg/dL Magnesium 1.9 (1.6-2.3) mg/dL Total Bilirubin 0.8 (0.2-1.3) mg/dL AST 17 (14-36) U/L ALT 7 (4-34) U/L Alkaline Phosphatase 61 (38-126) U/L Troponin I (0.000-0.034) ng/mL NT-Pro-B Natriuret Pep pg/mL Total Protein 6.4 (6.3-8.2) g/dL Albumin 3.8 (3.5-5.0) g/dL 02/24/20 02/24/20 Range/Units 07:06 07:06 WBC (3.8-10.6) k/uL RBC (3.80-5.40) m/uL Hgb (11.4-16.0) gm/dL Hct (34.0-46.0) % MCV (80.0-100.0) fL MCH (25.0-35.0) pg MCHC (31.0-37.0) g/dL RDW (11.5-15.5) % Plt Count (150-450) k/uL Neutrophils % % Lymphocytes % % Monocytes % % Eosinophils % % Basophils % % Neutrophils # (1.3-7.7) k/uL Lymphocytes # (1.0-4.8) k/uL Monocytes # (0-1.0) k/uL Eosinophils # (0-0.7) k/uL Basophils # (0-0.2) k/uL PT (9.0-12.0) sec INR (<1.2) APTT (22.0-30.0) sec Sodium (137-145) mmol/L Potassium (3.5-5.1) mmol/L Chloride (98-107) mmol/L Carbon Dioxide (22-30) mmol/L Anion Gap mmol/L BUN (7-17) mg/dL Creatinine (0.52-1.04) mg/dL Est GFR (CKD-EPI)AfAm (>60 ml/min/1.73 sqM) Est GFR (CKD-EPI)NonAf (>60 ml/min/1.73 sqM) Glucose (74-99) mg/dL Calcium (8.4-10.2) mg/dL Magnesium (1.6-2.3) mg/dL Total Bilirubin (0.2-1.3) mg/dL AST (14-36) U/L ALT (4-34) U/L Alkaline Phosphatase (38-126) U/L Troponin I <0.012 (0.000-0.034) ng/mL NT-Pro-B Natriuret Pep 172 pg/mL Total Protein (6.3-8.2) g/dL Albumin (3.5-5.0) g/dL - Radiology Data Interval improvement of basilar infiltrate and small effusion. (Laura Skinner) Disposition Is patient prescribed a controlled substance at d/c from ED?: No Time of Disposition: 08:27 <Laura Skinner - Last Filed: 02/24/20 08:24> <Juventino Solorio - Last Filed: 02/24/20 08:36> Clinical Impression: Chest pain Disposition: ADMITTED IP TO THIS HOSP Condition: Stable Referrals: Jesus Cooney MD [Primary Care Provider] - 1-2 days
[2020-02-24 07:20] LABS: Basophils # (A) 0.1 k/uL (0-0.2); Basophils % (A) 1 %; Eosinophils # (A) 0.1 k/uL (0-0.7); Eosinophils % (A) 2 %; HCT 40.3 % (34.0-46.0); HGB 13.7 gm/dL (11.4-16.0); Lymphocytes % (A) 30 %; MCHC 34.1 g/dL (31.0-37.0); MCV 90.9 fL (80.0-100.0); Mean Platelet Volume 7.9; Monocytes # (A) 0.3 k/uL (0-1.0); Monocytes % (A) 5 %; Neutrophils # (A) 4.1 k/uL (1.3-7.7); Neutrophils % (A) 61 %; Platelet Count 243 k/uL (150-450); RBC 4.43 m/uL (3.80-5.40); RDW 13.7 % (11.5-15.5); WBC 6.7 k/uL (3.8-10.6)
--- NOTE | 2020-02-24 07:21 | XR ---
EXAMINATION TYPE: XR chest 2V DATE OF EXAM: 02/24/2020 COMPARISON: 10/18/2019 TECHNIQUE: PA and lateral views submitted. HISTORY: Chest pain FINDINGS: \The heart is enlarged and there is bibasilar subsegmental consolidation. PICC line is seen. Small bi lateral effusions. Arthropathy of the shoulders. Hypertrophic and degenerative change of the spine. IMPRESSION: 1. Interval improvement of the basilar infiltrate and small effusion.
[2020-02-24 07:28] LABS: ALT 7 U/L (4-34); AST 17 U/L (14-36); African American GFR (CKD) >90 (>60 ml/min/1.73 sqM); Albumin 3.8 g/dL (3.5-5.0); Alkaline Phosphatase 61 U/L (38-126); Anion Gap 6 mmol/L; Blood Urea Nitrogen 16 mg/dL (7-17); Carbon Dioxide 29 mmol/L (22-30); Chloride 104 mmol/L (98-107); Glucose 98 mg/dL (74-99); Magnesium 1.9 mg/dL (1.6-2.3); Non-African American GFR(CKD) 86 (>60 ml/min/1.73 sqM); Potassium 3.8 mmol/L (3.5-5.1); Sodium 139 mmol/L (137-145); Total Bilirubin 0.8 mg/dL (0.2-1.3); Total Protein 6.4 g/dL (6.3-8.2)
[2020-02-24 07:34] LABS: INR 1.8 (<1.2); Partial Thromboplastin Time 25.9 sec (22.0-30.0); Prothrombin Time 17.4 sec (9.0-12.0)
[2020-02-24 08:56] LABS: Amorphous Sediment,Urine Rare /hpf; Appearance,Urine Cloudy (Clear); Bacteria,Urine Rare /hpf; Bilirubin,Urine Negative (Negative); Blood,Urine Negative (Negative); Color,Urine Yellow; Glucose,Urine (UA) Negative (Negative); Ketones,Urine Trace (Negative); Leukocyte Esterase,Urine Moderate (Negative); Mucus,Urine Rare /hpf; Nitrite,Urine Negative (Negative); Protein,Urine Negative (Negative); RBC,Urine 1 /hpf (0-5); Specific Gravity,Urine 1.018 (1.001-1.035); Squamous Epithelial Cell,Urine 4 /hpf (0-4); WBC,Urine 9 /hpf (0-5)
[2020-02-24] MEDS: NITROGLYCERIN SL TABS 0.4 MG TAB SUBLINGUAL PRN (12:56)
--- NOTE | 2020-02-24 13:23 | P.CRDCN ---
History of Present Illness History of present illness: HISTORY OF PRESENTING ILLNESS This is a pleasant 79-year-old female past medical history significant for parkinson's disease, paroxysmal atrial fibrillation on retirement anti-coagu lation, chronic DVT and hypertension. She lives at [facility]. Atrial fib was just recently diagnosed October 2019. Prior to discharge on that admission she had converted to sinus mechanism. We have been asked to see in consultation for chest pain. She states for the previous 1-week she has been experiencing pain in the chest in the mid-sternal region. The pain is described as an achy sensation. There is no radiation to the arm, back, neck or jaw. She states it occurs mostly at night but has been there constantly for 1-week with episodes of worsening. This morning she woke up and the pain was more intense and was associated with feeling nausea and light headed. She denies shortness of breath or palpitations. She states this is how she felt when she came in October and was diagnosed with a-fib. DIAGNOSTICS EKG reveals sinus mechanism with poor R-wave progression and non-specific c hanges. Chest xray interval improvement of the basilar infiltrate and small effusion. Laboratory reviewed, CBC unremarkable, INR 1.8, sodium 139, potassium 3.8, creatinine 0.63, magnesium 1.9, cardiac enzymes negative 3, NT proBNP 172. Current cardiac medications include Lopressor 50 mg daily, lisinopril 10 mg daily, Coumadin 2 mg 5 mg alternating every other day, amlodipine 5 mg daily and atorvastatin 40 mg daily. recent echocardiogram obtained October 2019 revealed preserve LV systolic function with ejection fraction 55%, mild aortic valve sclerosis, mild aortic regurgitation, mild mitral regurgitation, mild tricuspid regurgitation and mild pulmonary hypertension with RVSP of 38 mmHg. REVIEW OF SYSTEMS At the time of my exam: CONSTITUTIONAL: Denies fever or chills. CARDIOVASCULAR: Denies chest pain, shortness of breath, orthopnea, PND or palpitations. RESPIRATORY: Denies cough. GASTROINTESTINAL: Denies abdominal pain, diarrhea, constipation, nausea or vomiting. MUSCULOSKELETAL: Denies myalgias. NEUROLOGIC: Denies numbness, tingling or weakness. ENDOCRINE: Denies fatigue, weight change, polydipsia or polyurina. GENITOURINARY: Denies burning, hematuria or urgency with micturation. HEMATOLOGIC: Denies history of anemia or bleeding. PHYSICAL EXAMINATION Blood pressure 132/72 heart rate 77 afebrile and maintaining oxygen saturation on . CONSTITUTIONAL: No apparent distress. HEENT: Head is normocephalic. Pupils are equal, round. Sclerae anicteric. Mucous membranes of the mouth are moist. No JVD. No carotid bruit. CHEST EXAMINATION: Lungs are clear to auscultation. No chest wall tenderness is noted on palpation or with deep breathing. HEART EXAMINATION: Regular rate and rhythm. S1, S2 heard. No murmurs, gallops or rub. ABDOMEN: Soft, nontender. Positive bowel sounds. EXTREMITIES: 2+ peripheral pulses, no lower extremity edema and no calf tenderness. NEUROLOGIC EXAMINATION: Patient is awake, alert and oriented x3. ASSESSMENT Chest pain, atypical for angina. Paroxysmal atrial fibrillation on retirement anticoagulation Hypertension Parkinson's disease PLAN An acute coronary event has been ruled out. Continue to monitor on telemetry for arrhythmia. Will consider possible stress testing in the morning if she continues to have chest discomfort. Further recommendations to follow based on clinical course. Thank you kindly for this consultation. Nurse Practitioner note has been reviewed, I agree with a documented findings and plan of care. Patient was seen and examined. Past Medical History Past Medical History: Asthma, Heart Failure, CVA/TIA, Deep Vein Thrombosis (DVT), GERD/Reflux, Hypertension, Memory Impairment, Musculoskeletal Disorder, Neurologic Disorder, Osteoarthritis (OA) Additional Past Medical History / Comment(s): Ulcerative colitis, diverticulitis, parkinson's disease, CVA which pt was unaware of having-showed on cat scan, several DVTs bilateral legs and pt states since she has had intermittent bilateral ankle edema, thrombophlebitis, PE-pt cannot recall laterallity, generalized arthritis, urinary leakage, UTIs, shingles x 2 History of Any Multi-Drug Resistant Organisms: ESBL Date of last positivie culture/infection: 11/27/19 ESBL E.coli MDRO Source:: Urine Past Surgical History: Appendectomy, Cholecystectomy, Hysterectomy, Orthopedic Surgery, Tubal Ligation Additional Past Surgical History / Comment(s): L shoulder injury with surgery to repair, removals of DVTs bilateral legs, cataract removal/lens implants, colonoscopies, hemorrohoids surgery Past Anesthesia/Blood Transfusion Reactions: Postoperative Nausea & Vomiting (PONV) Additional Past Anesthesia/Blood Transfusion Reaction / Comment(s): Pt received blood with hysterectomy without reaction. Past Psychological History: Anxiety Additional Psychological History / Comment(s): Pt resides at [facility]. Daughter can no longer care for her. She moved here from [place] to live with her daughter 3 yrs ago. She ambulates with a walker. She no longer drives, her daughter takes her to [employer]. She is otherwise independent. Retired. Nonsmoker. No experience. No animal exposures. No travel. Smoking Status: Never smoker Past Alcohol Use History: None Reported Past Drug Use History: None Reported - Past Family History Father Family Medical History: Asthma, Cancer, COPD Additional Family Medical History / Comment(s): Gallbladder cancer Mother Family Medical History: Myocardial Infarction ([place]) Additional Family Medical History / Comment(s): Mother of a [place] at the age of 48 yrs. Sister(s) Additional Family Medical History / Comment(s): Sister of a blood clot at age 38 yrs-pt cannot recall specifics. Medications and Allergies Home Medications Medication Instructions Recorded Confirmed Type Omeprazole [PriLOSEC] 20 mg PO DAILY 01/11/19 02/24/20 History Cholecalciferol [Vitamin D3 (25 2,000 unit PO DAILY@0900 02/19/19 02/24/20 History Mcg = 1000 Iu)] bisacodyL [Dulcolax] 5 mg PO DAILY@0900 02/19/19 02/24/20 History Carbidopa-Levodopa 25-100 mg 1 tab PO TID@0900,1300,1700 07/30/19 02/24/20 History [Sinemet 25-100 mg] Acetaminophen Tab [Tylenol] 650 mg PO Q4H PRN #1 tablet 08/23/19 02/24/20 Rx Carbidopa/Levodopa [Sinemet CR 1 tab PO HS@2100 10/15/19 02/24/20 History 50-200 mg] Lisinopril [Zestril] 10 mg PO DAILY@0900 10/15/19 02/24/20 History Melatonin 10 mg PO HS 10/15/19 02/24/20 History Mirabegron [Myrbetriq] 25 mg PO HS 10/15/19 02/24/20 History Warfarin [Coumadin] 1 mg PO MOWEFR@1700 10/15/19 02/24/20 History Atorvastatin [Lipitor] 40 mg PO DAILY tab 10/19/19 02/24/20 Rx Metoprolol Tartrate [Lopressor] 50 mg PO DAILY tab 10/19/19 02/24/20 Rx amLODIPine [Norvasc] 5 mg PO DAILY tab 10/19/19 02/24/20 Rx Lactulose 10 gm PO HS 02/24/20 02/24/20 History Warfarin [Coumadin] 2 mg PO SUTUTHSA@1700 02/24/20 02/24/20 History traMADol HCL [Ultram] 50 mg PO Q8H PRN 02/24/20 02/24/20 History Allergies Allergy/AdvReac Type Severity Reaction Status Date / Time Influenza Virus Vaccines Allergy Swelling Verified 02/24/20 09:44 Penicillins Allergy Anaphylaxis Verified 02/24/20 09:44 Iodinated Contrast Media AdvReac Chest Pain Verified 02/24/20 09:44 [Iodinated Contrast- Oral and IV Dye] Physical Exam Vitals: Vital Signs Temp Pulse Pulse Resp BP BP Pulse Ox 02/24/20 08:47 97.7 F 67 16 136/67 94 L 02/24/20 08:40 98.6 F 63 18 132/49 96 02/24/20 07:27 66 18 130/77 97 02/24/20 06:29 97.8 F 68 16 138/60 95 Intake and Output 02/23/20 02/24/20 02/24/20 22:59 06:59 14:59 Other: Voiding Method Bedside Commode Weight 73.936 kg 73.936 kg Results 02/24/20 07:06 02/24/20 07:06 Cardiac Enzymes 02/24/20 02/24/20 02/24/20 Range/Units 07:06 07:06 09:33 AST 17 (14-36) U/L Troponin I <0.012 <0.012 (0.000-0.034) ng/mL Coagulation 02/24/20 Range/Units 07:06 PT 17.4 H (9.0-12.0) sec APTT 25.9 (22.0-30.0) sec CBC 02/24/20 Range/Units 07:06 WBC 6.7 (3.8-10.6) k/uL RBC 4.43 (3.80-5.40) m/uL Hgb 13.7 (11.4-16.0) gm/dL Hct 40.3 (34.0-46.0) % Plt Count 243 (150-450) k/uL Comprehensive Metabolic Panel 02/24/20 Range/Units 07:06 Sodium 139 (137-145) mmol/L Potassium 3.8 (3.5-5.1) mmol/L Chloride 104 (98-107) mmol/L Carbon Dioxide 29 (22-30) mmol/L BUN 16 (7-17) mg/dL Creatinine 0.63 (0.52-1.04) mg/dL Glucose 98 (74-99) mg/dL Calcium 9.0 (8.4-10.2) mg/dL AST 17 (14-36) U/L ALT 7 (4-34) U/L Alkaline Phosphatase 61 (38-126) U/L Total Protein 6.4 (6.3-8.2) g/dL Albumin 3.8 (3.5-5.0) g/dL Current Medications Generic Name Dose Route Start Last Admin Trade Name Freq PRN Reason Stop Dose Admin Aspirin 325 mg 02/25/20 09:00 Aspirin PO DAILY JOSETTE Nitroglycerin 0.4 mg 02/24/20 08:28 Nitrostat SUBLINGUAL Q5M PRN Chest Pain Intake and Output 02/23/20 02/24/20 02/24/20 22:59 06:59 14:59 Other: Voiding Method Bedside Commode Weight 73.936 kg 73.936 kg Patient Weight 02/25/20 06:59 Weight 73.936 kg 02/24/20 07:06 02/24/20 07:06
[2020-02-24] MEDS ORDERED: ACETAMINOPHEN TAB 325 MG TAB PO PRN (13:58)
[2020-02-24] MEDS: METOPROLOL TARTRATE 50 MG TAB PO SCH (15:09)
[2020-02-24] MEDS: amLODIPine 5 MG TAB PO SCH (15:09)
[2020-02-24] MEDS: PANTOPRAZOLE 40 MG TABLET PO SCH (15:09)
[2020-02-24] MEDS: ATORVASTATIN 40 MG TAB PO SCH (15:09)
--- NOTE | 2020-02-24 15:17 | P.HPIM ---
History of Present Illness This is a pleasant 79 years old female with past medical history of heart failure, CVA/TIA, deep venous thrombosis on anticoagulation, GERD, hypertension, memory impairment, osteoarthritis, ulcerative colitis, Parkinson disease, div erticulitis, patient presents with chest pain for about a week, pain is on the left side was across the chest and to the left arm, but 10/10 in severity when she came in currently 7/10. [place] like sharp and agrees with the breathing. Associated with some dyspnea and nausea and dizziness. Also patient complaining from dysuria Vitals are stable. Labs were unremarkable including CBC, BMP, liver enzymes and serial troponins were negative less than 0.012. Her INR is slightly subtherapeutic at 1.8 Urinalysis is suspicious for infection Chest x-ray: No acute process. Improvement of previous infiltrate. EKG showing normal sinus rhythm at [address]-T changes. In the emergency room she continued on aspirin Review of Systems CONSTITUTIONAL: No fever, no malaise, no fatigue. HEENT: No recent visual problems or hearing problems. Denied any sore throat. CARDIOVASCULAR: No orthopnea, PND, no palpitations, no syncope. PULMONARY: no hemoptysis. GASTROINTESTINAL: No diarrhea, no nausea, no vomiting, no abdominal pain. Normoactive bowel sounds. NEUROLOGICAL: No headaches, no weakness, no numbness. HEMATOLOGICAL: Denies any bleeding or petechiae. GENITOURINARY: Denies any hematuria or urgency MUSCULOSKELETAL/RHEUMATOLOGICAL: Denies any joint pain, swelling, or any muscle pain. ENDOCRINE: Denies any polyuria or polydipsia. Past Medical History Past Medical History: Asthma, Heart Failure, CVA/TIA, Deep Vein Thrombosis (DVT), GERD/Reflux, Hypertension, Memory Impairment, Musculoskeletal Disorder, Neurologic Disorder, Osteoarthritis (OA) Additional Past Medical History / Comment(s): Ulcerative colitis, diverticulitis, parkinson's disease, CVA which pt was unaware of having-showed on cat scan, several DVTs bilateral legs and pt states since she has had intermittent bilateral ankle edema, thrombophlebitis, PE-pt cannot recall laterallity, generalized arthritis, urinary leakage, UTIs, shingles x 2 History of Any Multi-Drug Resistant Organisms: ESBL Date of last positivie culture/infection: 11/27/19 ESBL E.coli MDRO Source:: Urine Past Surgical History: Appendectomy, Cholecystectomy, Hysterectomy, Orthopedic Surgery, Tubal Ligation Additional Past Surgical History / Comment(s): L shoulder injury with surgery to repair, removals of DVTs bilateral legs, cataract removal/lens implants, colonoscopies, hemorrohoids surgery Past Anesthesia/Blood Transfusion Reactions: Postoperative Nausea & Vomiting (PONV) Additional Past Anesthesia/Blood Transfusion Reaction / Comment(s): Pt received blood with hysterectomy without reaction. Past Psychological History: Anxiety Additional Psychological History / Comment(s): Pt resides at [facility]. Daughter can no longer care for her. She moved here from [place] to live with her daughter 3 yrs ago. She ambulates with a walker. She no longer drives, her daughter takes her to [employer]. She is otherwise independent. Retired. Nonsmoker. No experience. No animal exposures. No travel. Smoking Status: Never smoker Past Alcohol Use History: None Reported Past Drug Use History: None Reported - Past Family History Father Family Medical History: Asthma, Cancer, COPD Additional Family Medical History / Comment(s): Gallbladder cancer Mother Family Medical History: Myocardial Infarction (CA) Additional Family Medical History / Comment(s): Mother of a CA at the age of 48 yrs. Sister(s) Additional Family Medical History / Comment(s): Sister of a blood clot at age 38 yrs-pt cannot recall specifics. Medications and Allergies Home Medications Medication Instructions Recorded Confirmed Type Omeprazole [PriLOSEC] 20 mg PO DAILY 01/11/19 02/24/20 History Cholecalciferol [Vitamin D3 (25 2,000 unit PO DAILY@0900 02/19/19 02/24/20 History Mcg = 1000 Iu)] bisacodyL [Dulcolax] 5 mg PO DAILY@0900 02/19/19 02/24/20 History Carbidopa-Levodopa 25-100 mg 1 tab PO TID@0900,1300,1700 07/30/19 02/24/20 History [Sinemet 25-100 mg] Acetaminophen Tab [Tylenol] 650 mg PO Q4H PRN #1 tablet 08/23/19 02/24/20 Rx Carbidopa/Levodopa [Sinemet CR 1 tab PO HS@2100 10/15/19 02/24/20 History 50-200 mg] Lisinopril [Zestril] 10 mg PO DAILY@0900 03/13/20 07/23/20 History Melatonin 10 mg PO HS 10/15/19 02/24/20 History Mirabegron [Myrbetriq] 25 mg PO HS 10/15/19 02/24/20 History Warfarin [Coumadin] 1 mg PO MOWEFR@1700 10/15/19 02/24/20 History Atorvastatin [Lipitor] 40 mg PO DAILY tab 10/19/19 02/24/20 Rx Metoprolol Tartrate [Lopressor] 50 mg PO DAILY tab 10/19/19 02/24/20 Rx amLODIPine [Norvasc] 5 mg PO DAILY tab 10/19/19 02/24/20 Rx Lactulose 10 gm PO HS 02/24/20 02/24/20 History Warfarin [Coumadin] 2 mg PO SUTUTHSA@1700 02/24/20 02/24/20 History traMADol HCL [Ultram] 50 mg PO Q8H PRN 02/24/20 02/24/20 History Allergies Allergy/AdvReac Type Severity Reaction Status Date / Time Influenza Virus Vaccines Allergy Swelling Verified 02/24/20 09:44 Penicillins Allergy Anaphylaxis Verified 02/24/20 09:44 Iodinated Contrast Media AdvReac Chest Pain Verified 02/24/20 09:44 [Iodinated Contrast- Oral and IV Dye] Physical Exam Vitals: Vital Signs Temp Pulse Pulse Resp BP BP Pulse Ox 02/24/20 12:55 77 132/72 02/24/20 08:47 97.7 F 67 16 136/67 94 L 02/24/20 08:40 98.6 F 63 18 132/49 96 02/24/20 07:27 66 18 130/77 97 02/24/20 06:29 97.8 F 68 16 138/60 95 Intake and Output 02/23/20 02/24/20 02/24/20 22:59 06:59 14:59 Other: Voiding Method Bedside Commode Weight 73.936 kg 73.936 kg GENERAL: The patient is alert and oriented x3, not in any acute distress. Well developed, well nourished. HEENT: Pupils are round and equally reacting to light. EOMI. No scleral icterus. No conjunctival pallor. Normocephalic, atraumatic. No pharyngeal erythema. No thyromegaly. CARDIOVASCULAR: S1 and S2 present. No murmurs, rubs, or gallops. PULMONARY: Chest is clear to auscultation, no wheezing or crackles. ABDOMEN: Soft, nontender, nondistended, normoactive bowel sounds. No palpable organomegaly. MUSCULOSKELETAL: No joint swelling or deformity. EXTREMITIES: No cyanosis, clubbing, or pedal edema. NEUROLOGICAL: Gross neurological examination did not reveal any focal deficits. SKIN: No rashes. No petechiae Results CBC & Chem 7: 02/24/20 07:06 02/24/20 07:06 Labs: Abnormal Lab Results - Last 24 Hours (Table) 02/24/20 02/24/20 Range/Units 07:06 08:37 PT 17.4 H (9.0-12.0) sec INR 1.8 H (<1.2) Urine Appearance Cloudy H (Clear) Urine Ketones Trace H (Negative) Ur Leukocyte Esterase Moderate H (Negative) Urine WBC 9 H (0-5) /hpf Amorphous Sediment Rare H (None) /hpf Urine Bacteria Rare H (None) /hpf Urine Mucus Rare H (None) /hpf Thrombosis Risk Factor Assmnt - Choose All That Apply Each Risk Factor Represents 3 Points: Age 75 years or older, History of DVT/PE Thrombosis Risk Factor Assessment Total Risk Factor Score: 6 Thrombosis Risk Factor Assessment Level: High Risk Assessment and Plan Assessment: Chest pain, rule out cardiac causes versus other acute urinary tract infection heart failure CVA/TIA Atrial fibrillation on anticoagulation Deep venous thrombosis, on Coumadin. With subtherapeutic INR GERD hypertension memory impairment osteoarthritis ulcerative colitis Parkinson disease diverticulitis Plan: This is a pleasant 79 years old female who presents because of chest pain. No dysuria troponins, EKG cardiology consult.Also give 1 mg of extra dose of Coumadin for some septic INR. Start Levaquin and check for urine culture Labs and medication were reviewed.. Continue same treatment. Continue with symptomatic treatment. Resume home medication. Monitor lytes and vitals. DVT and GI prophylaxis. Further recommendations of the clinical course of the patient DVT prophylaxis On warfarin GI Prophylaxis: Pepcid PT/OT: Pending Prognosis is guarded
[2020-02-24] MEDS: LEVOFLOXACIN 500MG-D5W PMX 500 MG in DEXTROSE/WATER 1 100ML.BAG IVPB SCH (16:46)
[2020-02-24] MEDS: CARBIDOPA-LEVODOPA 25-100 MG 1 EACH TAB PO SCH (16:55)
[2020-02-24] MEDS: WARFARIN 2 MG TAB PO SCH (16:55)
[2020-02-24] MEDS: traMADol 50 MG TAB PO PRN (17:43)
[2020-02-24] MEDS ORDERED: WARFARIN 1 MG TAB PO ONE (18:00)
[2020-02-24] MEDS: LACTULOSE 20 GM/30 ML CUP PO SCH (21:17)
[2020-02-24] MEDS: FAMOTIDINE 20 MG/2 ML VIAL IV SCH (21:17)
[2020-02-24] MEDS: MELATONIN 5 MG TABLET PO SCH (21:18)
[2020-02-24] MEDS: CARBIDOPA-LEVODOPA ER 50-200MG 1 EACH TABLET.ER PO SCH (22:08)
[2020-02-25] MEDS: PATIENT'S OWN (Mirabegron [Myrbetriq] 25 MG) PO SCH ×2 (00:53→21:13)
[2020-02-25 03:29] LABS: Cholesterol 121 mg/dL (<200); HDL Cholesterol 51 mg/dL (40-60); LDL Cholesterol,Calculated 53 mg/dL (0-99); Triglycerides 85 mg/dL (<150)
[2020-02-25] MEDS: PANTOPRAZOLE 40 MG TABLET PO SCH (06:32)
[2020-02-25] MEDS ORDERED: REGADENOSON 0.4 MG/5 ML SYRINGE IV ONE (09:07)
[2020-02-25] MEDS ORDERED: CAFFEINE CITRATE 60 MG/3 ML VIAL IV PRN (09:07)
[2020-02-25] MEDS ORDERED: AMINOPHYLLINE 500 MG/20 ML VIAL IV PRN (09:07)
[2020-02-25 09:42] LABS: INR 2.1 (<1.2); Prothrombin Time 20.1 sec (9.0-12.0)
[2020-02-25] MEDS: amLODIPine 5 MG TAB PO SCH (10:07)
[2020-02-25] MEDS: ASPIRIN 325 MG TAB PO SCH (10:07)
[2020-02-25] MEDS: CHOLECALCIFEROL 1,000 UNIT TAB PO SCH (10:07)
[2020-02-25] MEDS: ATORVASTATIN 40 MG TAB PO SCH (10:07)
[2020-02-25] MEDS: FAMOTIDINE 20 MG/2 ML VIAL IV SCH ×2 (10:07→21:11)
[2020-02-25] MEDS: bisacodyL 5 MG TABLET.DR PO SCH (10:07)
[2020-02-25] MEDS: lisinopriL 10 MG TAB PO SCH (10:07)
[2020-02-25] MEDS: CARBIDOPA-LEVODOPA 25-100 MG 1 EACH TAB PO SCH ×3 (10:08→17:02)
--- NOTE | 2020-02-25 10:54 | P.PN ---
Subjective HISTORY OF PRESENTING ILLNESS This is a pleasant 79-year-old female past medical history significant for parkinson's disease, paroxysmal atrial fibrillation on fci anti- coagulation, chronic DVT and hypertension. She lives at [facility]. Atrial fib was just recently diagnosed October 2019. She is seen and examined resting comfortably lying flat in bed. She continues to complain of achy sensation in the chest. She is currently being treated for chronic urinary tract infection with IV antibiotics. Blood pressures 133/68 heart rate of 59 afebrile maintaining oxygen saturation on room. Laboratory data reviewed, d-dimer negative and INR 2.1. Telemetry tracings reveal persistent sinus mechanism. PHYSICAL EXAMINATION CONSTITUTIONAL: No apparent distress. HEENT: Head is normocephalic. Pupils are equal, round. Sclerae anicteric. Mucous membranes of the mouth are moist. No JVD. No carotid bruit. CHEST EXAMINATION: Lungs are clear to auscultation. No chest wall tenderness is noted on palpation or with deep breathing. HEART EXAMINATION: Regular rate and rhythm. S1, S2 heard. No murmurs, gallops or rub. EXTREMITIES: 2+ peripheral pulses, no lower extremity edema and no calf tenderness. ASSESSMENT Chest pain, atypical for angina. Paroxysmal atrial fibrillation on fci anticoagulation Hypertension Parkinson's disease PLAN Proceed with Lexiscan stress test to assess for underlying reversible cardiac i schemia. If reversibility is noted we'll consider cardiac catheterization. If stress test is normal she may be discharged back to [facility]. Follow-up in the office with Dr. Jurado in 2-3 weeks. Nurse Practitioner note has been reviewed, I agree with a documented findings and plan of care. Patient was seen and examined. Objective - Vital Signs Vital signs: Vital Signs Temp 97.8 F 02/25/20 08:28 Pulse 59 L 02/25/20 08:28 Resp 16 02/25/20 08:28 BP 133/68 02/25/20 08:28 Pulse Ox 95 02/25/20 08:28 Intake & Output 02/24/20 02/25/20 02/25/20 18:59 06:59 18:59 Intake Total 250 200 Output Total 650 Balance 250 -650 200 Weight 73.936 kg Intake: Oral 250 200 Output: Urine 650 Other: Voiding Method Bedside Commode Bedside Commode Bedside Commode - Labs CBC & Chem 7: 02/24/20 07:06 02/24/20 07:06 Labs: Abnormal Lab Results - Last 24 Hours (Table) 02/25/20 Range/Units 09:02 PT 20.1 H (9.0-12.0) sec INR 2.1 H (<1.2) Microbiology - Last 24 Hours (Table) 02/24/20 15:38 Urine Culture - Preliminary Urine,Clean Catch
[2020-02-25] MEDS ORDERED: AMINOPHYLLINE 500 MG/20 ML VIAL IV ONE (14:40)
[2020-02-25] MEDS: METOPROLOL TARTRATE 50 MG TAB PO SCH (16:58)
[2020-02-25] MEDS ORDERED: WARFARIN 1 MG TAB PO SCH (17:00)
[2020-02-25] MEDS: LEVOFLOXACIN 500MG-D5W PMX 500 MG in DEXTROSE/WATER 1 100ML.BAG IVPB SCH (17:03)
--- NOTE | 2020-02-25 19:51 | P.PN ---
Subjective This is a pleasant 79 years old female with past medical history of heart failure, CVA/TIA, paroxysmal atrial fibrillation, deep venous thrombosis on anticoagulation, GERD, hypertension, memory impairment, osteoarthritis, ulcerative colitis, Parkinson disease, diverticulitis, patient presents with chest pain for about a week, associated with dizziness, dyspnea and nausea, patient has been evaluated by communications professor stress this is done and the result is pending. Also patient was complaining from dysuria, urinalysis was suspicious for infection. Patient was started on Lovenox. Urine culture is growing gram- negative bacilli. The lower the dose of levofloxacin to 250 mg daily, to decrease the chances of interaction with Coumadin. I called her PCP Dr. Cooney and made appointment with her however Dr. Barkley told me she is from long-term and she will follow up with her, I discussed the case with him and he told me he will follow-up and monitor her INR closely while she is on antibiotic and he follow-up the results of the urine culture done in this hospital Possible discharge in 24-48 hours and keep improving and negative stress test Objective - Vital Signs Vital signs: Vital Signs Temp 97.8 F 02/25/20 08:28 Pulse 59 L 02/25/20 08:28 Resp 16 02/25/20 08:28 BP 133/68 02/25/20 08:28 Pulse Ox 95 02/25/20 08:28 Intake & Output 02/24/20 02/25/20 02/25/20 18:59 06:59 18:59 Intake Total 250 200 Output Total 650 Balance 250 -650 200 Weight 73.936 kg 73.94 kg Intake: Oral 250 200 Output: Urine 650 Other: Voiding Method Bedside Commode Bedside Commode Bedside Commode - Exam GENERAL: The patient is alert and oriented x3, not in any acute distress. Well developed, well nourished. HEENT: Pupils are round and equally reacting to light. EOMI. No scleral icterus. No conjunctival pallor. Normocephalic, atraumatic. No pharyngeal erythema. No thyromegaly. CARDIOVASCULAR: S1 and S2 present. No murmurs, rubs, or gallops. PULMONARY: Chest is clear to auscultation, no wheezing or crackles. ABDOMEN: Soft, nontender, nondistended, normoactive bowel sounds. No palpable organomegaly. MUSCULOSKELETAL: No joint swelling or deformity. EXTREMITIES: No cyanosis, clubbing, or pedal edema. NEUROLOGICAL: Gross neurological examination did not reveal any focal deficits. SKIN: No rashes. no petechiae. - Labs CBC & Chem 7: 02/24/20 07:06 02/24/20 07:06 Labs: Abnormal Lab Results - Last 24 Hours (Table) 02/25/20 Range/Units 09:02 PT 20.1 H (9.0-12.0) sec INR 2.1 H (<1.2) Microbiology - Last 24 Hours (Table) 02/24/20 15:38 Urine Culture - Preliminary Urine,Clean Catch Assessment and Plan Assessment: Chest pain, rule out cardiac causes versus other . Stress test is pending acute urinary tract infection heart failure CVA/TIA Atrial fibrillation on anticoagulation Deep venous thrombosis, on Coumadin. With subtherapeutic INR GERD hypertension memory impairment osteoarthritis ulcerative colitis Parkinson disease diverticulitis Plan: This is a pleasant 79 years old female who presents because of chest pain. Follow-up results of stress test. Follow-up results of urine culture, continue with levofloxacin to 250 mg daily. Monitor INR. She turned back to long-term in stable Labs and medication were reviewed.. Continue same treatment. Continue with symptomatic treatment. Resume home medication. Monitor lytes and vitals. DVT and GI prophylaxis. Further recommendations of the clinical course of the patient DVT prophylaxis On warfarin GI Prophylaxis: Pepcid Prognosis is guarded
[2020-02-25] MEDS: CARBIDOPA-LEVODOPA ER 50-200MG 1 EACH TABLET.ER PO SCH (21:11)
[2020-02-25] MEDS: LACTULOSE 20 GM/30 ML CUP PO SCH (21:11)
[2020-02-25] MEDS: MELATONIN 5 MG TABLET PO SCH (21:11)
[2020-02-25] MEDS: traMADol 50 MG TAB PO PRN (21:25)
[2020-02-26] MEDS: LEVOFLOXACIN 250MG-D5W PMX 250 MG in DEXTROSE/WATER 1 50ML.BAG IVPB SCH ×2 (00:46→17:09)
[2020-02-26] MEDS: traMADol 50 MG TAB PO PRN ×2 (05:24→21:11)
[2020-02-26] MEDS: PANTOPRAZOLE 40 MG TABLET PO SCH (06:36)
[2020-02-26 06:37] LABS: INR 2.3 (<1.2); Prothrombin Time 22.6 sec (9.0-12.0)
[2020-02-26] MEDS: FAMOTIDINE 20 MG/2 ML VIAL IV SCH (07:50)
[2020-02-26] MEDS: bisacodyL 5 MG TABLET.DR PO SCH (07:51)
[2020-02-26] MEDS: ATORVASTATIN 40 MG TAB PO SCH (07:51)
[2020-02-26] MEDS: ASPIRIN 325 MG TAB PO SCH (07:51)
[2020-02-26] MEDS: amLODIPine 5 MG TAB PO SCH (07:51)
[2020-02-26] MEDS: METOPROLOL TARTRATE 50 MG TAB PO SCH (07:51)
[2020-02-26] MEDS: CHOLECALCIFEROL 1,000 UNIT TAB PO SCH (07:51)
[2020-02-26] MEDS: lisinopriL 10 MG TAB PO SCH (07:51)
[2020-02-26] MEDS: CARBIDOPA-LEVODOPA 25-100 MG 1 EACH TAB PO SCH ×3 (07:52→17:10)
--- NOTE | 2020-02-26 09:08 | NM ---
EXAMINATION TYPE: NM stress lexiscan cardiolite DATE OF EXAM: 02/25/2020 COMPARISON: NONE HISTORY: TECHNIQUE: After the intravenous administration of 9.5 mCi Tc 99m Sestamibi - Cardiolite resting SPE CT images acquired 60 minutes post injection. The patient received 0.4mg Lexiscan, 22.5 mCi Tc 99m Sestamibi - Stress images obtained [address] injection FINDINGS: Apparently, the case was dictated by the radiologist on-call the previous night. Case is pr esented requested for dictation on 02/26/2020 at 9:00 AM. Review of stress and rest SPECT images demonstrates slightly reduced uptake involving the myocardial septum in intensity uptake.. Gated analysis shows normal wall motion with an estimated left ventricu lar ejection fraction of 66 %. IMPRESSION: 1. Resting ejection fraction of 66%. 2. Reduced intensity of uptake without evidence of overt defect involving the myocardial septum. This could be artifactual correlate clinically to exclude a tiny area of stress-induced reversible ischem ia.
--- NOTE | 2020-02-26 13:23 | P.PN ---
Subjective Progress Note Date: 02/26/20 The patient is a 79-year-old female with past medical history of Parkinson's disease, paroxysmal atrial fibrillation, DVT, and hypertension who currently follows with Dr. Wong in the office. She was initially admitted for worsening chest discomfort, which she described as an achy sensation. That pain has since resolved. Patient examined this morning lying comfortably in bed. She does report abdomin al and back discomfort. She states she has been diagnosed with another urinary tract infection, which has been chronic for her over the last several months. She does report some shortness of breath when she gets up to the chair. She denies any palpitations, dizziness, or lightheadedness. Recent Lexiscan shows a possible small reversible defect in the septal area. GENERAL: Well-appearing, well-nourished and in no acute distress. NECK: Supple without JVD or thyromegaly. LUNGS: Breath sounds clear to auscultation bilaterally. Respiration equal and unlabored. No wheezes, rales or rhonchi. HEART: Regular rate and rhythm without murmurs, rubs or gallops. S1 and S2 heard. EXTREMITIES: Normal range of motion, no edema. No clubbing or cyanosis. Peripheral pulses intact and strong. Vitals: Blood pressure 122/66, heart rate 74, respiratory rate 16, afebrile, SpO2 93 on room air Impression: #1 chest discomfort, atypical for angina #2 paroxysmal atrial fibrillation, on warfarin #3 hypertension, well controlled #4 Parkinson's disease #5 urinary tract infection, positive for gram-negative bacilli Plan: Continue current medication regimen. Patient will follow-up with primary e commerce analyst outpatient for further recommendations regarding stress test. No additional recommendations at this time. Objective - Vital Signs Vital signs: Vital Signs Temp 97.7 F 02/26/20 07:50 Pulse 74 02/26/20 08:12 Resp 16 02/26/20 08:12 BP 122/66 02/26/20 07:50 Pulse Ox 93 L 02/26/20 07:50 Intake & Output 02/25/20 02/26/20 02/26/20 18:59 06:59 18:59 Intake Total 400 480 Output Total 2000 Balance 400 -1520 Weight 73.94 kg Intake: Oral 400 480 Output: Urine 2000 Other: Voiding Method Bedside Commode Bedside Commode Bedside Commode - Labs CBC & Chem 7: 07/23/20 07:06 02/24/20 07:06 Labs: Abnormal Lab Results - Last 24 Hours (Table) 02/26/20 Range/Units 06:09 PT 22.6 H (9.0-12.0) sec INR 2.3 H (<1.2) Microbiology - Last 24 Hours (Table) 02/24/20 15:38 Urine Culture - Preliminary Urine,Clean Catch Gram Neg Bacilli
[2020-02-26] MEDS: WARFARIN 2 MG TAB PO SCH (17:10)
--- NOTE | 2020-02-26 20:06 | P.PN ---
Subjective This is a pleasant 79 years old female with past medical history of heart failure, CVA/TIA, paroxysmal atrial fibrillation, deep venous thrombosis on anticoagulation, GERD, hypertension, memory impairment, osteoarthritis, ulcerative colitis, Parkinson disease, diverticulitis, patient presents with chest pain for about a week, associated with dizziness, dyspnea and nausea, patient has been evaluated by regional tanker truck driver stress this is done and the result is pending. Also patient was complaining from dysuria, urinalysis was suspicious for infection. Patient was started on Lovenox. Urine culture is growing gram- negative bacilli. The lower the dose of levofloxacin to 250 mg daily, to decrease the chances of interaction with Coumadin. I called her PCP Dr. Cooney and made appointment with her however Dr. Barkley told me she is from custodial and she will follow up with her, I discussed the case with him and he told me he will follow-up and monitor her INR closely while she is on antibiotic and he follow-up the results of the urine culture done in this hospital Possible discharge in 24-48 hours and keep improving and negative stress test 02/26/2020 Patient is doing fine, she's awake and tolerating diet. No chest pain or dyspnea. No dizziness. Hemodynamics are stable. Patient has stress done yesterday and result looks negative although there was suspicion of area of reduced uptake with a recommendation to assess clinically however staff spoke with Dr. Canales and he cleared her for discharge, cartilage team however recommended that patient follow up with her regional tanker truck driver upon discharge for (Recent Lexiscan shows a possible small reversible defect in the septal area.) Patient is medically stable for discharge, she is from custodial and was therefore 5 months, I spoke with social work case manager Tata on case today, nursing h ome patient asking for prior catheterization although patient is already the resident, as per social work case manager patient may be sent to Friday However her urine culture came back positive for ESBL E. coli which is resistant to levofloxacin so we will dc Levofloxacin and will call for infectious disease consult Objective - Vital Signs Vital signs: Vital Signs Temp 98.2 F 02/26/20 15:00 Pulse 60 02/26/20 15:00 Resp 16 02/26/20 15:00 BP 99/62 02/26/20 15:00 Pulse Ox 94 L 02/26/20 15:00 Intake & Output 02/26/20 02/26/2020 06:59 18:59 06:59 Intake Total 480 240 Output Total 1999 Balance -1520 -60 Intake: Oral 480 240 Output: Urine 1999 Other: Voiding Method Bedside Commode Bedside Commode # Voids 2 - Exam GENERAL: The patient is alert and oriented x3, not in any acute distress. Well developed, well nourished. HEENT: Pupils are round and equally reacting to light. EOMI. No scleral icterus. No conjunctival pallor. Normocephalic, atraumatic. No pharyngeal erythema. No thyromegaly. CARDIOVASCULAR: S1 and S2 present. No murmurs, rubs, or gallops. PULMONARY: Chest is clear to auscultation, no wheezing or crackles. ABDOMEN: Soft, nontender, nondistended, normoactive bowel sounds. No palpable organomegaly. MUSCULOSKELETAL: No joint swelling or deformity. EXTREMITIES: No cyanosis, clubbing, or pedal edema. NEUROLOGICAL: Gross neurological examination did not reveal any focal deficits. SKIN: No rashes. no petechiae. - Labs CBC & Chem 7: 02/24/20 07:06 02/24/20 07:06 Labs: Abnormal Lab Results - Last 24 Hours (Table) 02/26/20 Range/Units 06:09 PT 22.6 H (9.0-12.0) sec INR 2.3 H (<1.2) Microbiology - Last 24 Hours (Table) 02/24/20 15:38 Urine Culture - Final Urine,Clean Catch Escherichia coli Assessment and Plan Assessment: -Chest pain, rule out cardiac causes versus other . Stress test is showing possible reversible area of ischemia in the septum, recommended outpatient follow-up -acute urinary tract infection , with ESBL E. coli, DC Lovenox is seen and complexes disease consult heart failure CVA/TIA Atrial fibrillation on anticoagulation Deep venous thrombosis, on Coumadin. With subtherapeutic INR GERD hypertension memory impairment osteoarthritis ulcerative colitis Parkinson disease diverticulitis Continue same treatment. Continue with symptomatic treatment. Resume home medication. Monitor lytes and vitals. DVT and GI prophylaxis. Further recommendations of the clinical course of the patient DVT prophylaxis On warfarin GI Prophylaxis: Pepcid Prognosis is guarded
[2020-02-26] MEDS: CARBIDOPA-LEVODOPA ER 50-200MG 1 EACH TABLET.ER PO SCH (21:11)
[2020-02-26] MEDS: LACTULOSE 20 GM/30 ML CUP PO SCH (21:11)
[2020-02-26] MEDS: MELATONIN 5 MG TABLET PO SCH (21:11)
[2020-02-26] MEDS: PATIENT'S OWN (Mirabegron [Myrbetriq] 25 MG) PO SCH (21:12)
[2020-02-27] MEDS: PANTOPRAZOLE 40 MG TABLET PO SCH (06:26)
[2020-02-27] MEDS: NITROGLYCERIN SL TABS 0.4 MG TAB SUBLINGUAL PRN ×2 (08:07→08:14)
[2020-02-27] MEDS: traMADol 50 MG TAB PO PRN (09:23)
[2020-02-27] MEDS: CARBIDOPA-LEVODOPA 25-100 MG 1 EACH TAB PO SCH ×3 (09:26→17:38)
[2020-02-27] MEDS: lisinopriL 10 MG TAB PO SCH (10:24)
[2020-02-27] MEDS: bisacodyL 5 MG TABLET.DR PO SCH (10:24)
[2020-02-27] MEDS: ASPIRIN 325 MG TAB PO SCH (10:24)
[2020-02-27] MEDS: CHOLECALCIFEROL 1,000 UNIT TAB PO SCH (10:24)
[2020-02-27] MEDS: METOPROLOL TARTRATE 50 MG TAB PO SCH (10:24)
[2020-02-27] MEDS: amLODIPine 5 MG TAB PO SCH (10:24)
[2020-02-27] MEDS: ATORVASTATIN 40 MG TAB PO SCH (10:25)
[2020-02-27] MEDS ORDERED: HYDROcodone/APAP 5-325MG 1 EACH TAB PO PRN (11:45)
[2020-02-27] MEDS: ONDANSETRON 4 MG/2 ML VIAL IVP PRN (12:09)
[2020-02-27] MEDS ORDERED: SODIUM CHLORIDE 0.9% 1,000 ML IV SCH (12:30)
[2020-02-27] MEDS: WARFARIN 2 MG TAB PO SCH (17:36)
[2020-02-27] MEDS: HYDROcodone/APAP 7.5-325MG 1 EACH TAB PO PRN (17:37)
[2020-02-27] MEDS: PATIENT'S OWN (Mirabegron [Myrbetriq] 25 MG) PO SCH (21:21)
[2020-02-27] MEDS: MELATONIN 5 MG TABLET PO SCH (21:24)
[2020-02-27] MEDS: LACTULOSE 20 GM/30 ML CUP PO SCH (21:24)
[2020-02-27] MEDS: ERTAPENEM 1 GM in SODIUM CHLORIDE 0.9% 50 ML IVPB SCH (21:25)
[2020-02-27] MEDS: CARBIDOPA-LEVODOPA ER 50-200MG 1 EACH TABLET.ER PO SCH (21:46)
[2020-02-27 22:01] VITALS: TEMP 97.9
--- NOTE | 2020-02-28 00:06 | P.PN ---
Subjective This is a pleasant 79 years old female with past medical history of heart failure, CVA/TIA, paroxysmal atrial fibrillation, deep venous thrombosis on anticoagulation, GERD, hypertension, memory impairment, osteoarthritis, ulcerative colitis, Parkinson disease, diverticulitis, patient presents with chest pain for about a week, associated with dizziness, dyspnea and nausea, patient has been evaluated by supervisor water softener service stress this is done and the result is pending. Also patient was complaining from dysuria, urinalysis was suspicious for infection. Patient was started on Lovenox. Urine culture is growing gram- negative bacilli. The lower the dose of levofloxacin to 250 mg daily, to decrease the chances of interaction with Coumadin. I called her PCP Dr. Cooney and made appointment with her however Dr. Barkley told me she is from correction and she will follow up with her, I discussed the case with him and he told me he will follow-up and monitor her INR closely while she is on antibiotic and he follow-up the results of the urine culture done in this hospital Possible discharge in 24-48 hours and keep improving and negative stress test 02/26/2020 Patient is doing fine, she's awake and tolerating diet. No chest pain or dyspnea. No dizziness. Hemodynamics are stable. Patient has stress done yesterday and result looks negative although there was suspicion of area of reduced uptake with a recommendation to assess clinically however staff spoke with Dr. Canales and he cleared her for discharge, cartilage team however recommended that patient follow up with her supervisor water softener service upon discharge for (Recent Lexiscan shows a possible small reversible defect in the septal area.) Patient is medically stable for discharge, she is from correction and was therefore 5 months, I spoke with correctional casework specialist Tata on case today, nursing h ome patient asking for prior catheterization although patient is already the resident, as per correctional casework specialist patient may be sent to Friday However her urine culture came back positive for ESBL E. coli which is resistant to levofloxacin so we will dc Levofloxacin and will call for infectious disease consult 02/27/2020 Patient is awake but had some mild chest pain overnight, she was complaining of from dysuria and suprapubic abdominal pain, she did not feel well Cardiology evaluated the patient this morning and they were not much concerned about her mild chest pain in view of her equivocal stress test infectious disease input is appreciated and they started the patient on ertapenem for her ESBL UTI which looks like the main reason patient has her symptoms Patient needs to stay in the hospital now and she is not cleared medically for discharge because she needs IV antibiotics INR therapeutic, continue with Coumadin Objective - Vital Signs Vital signs: Vital Signs Temp 97.6 F 02/27/20 09:00 Pulse 76 02/27/20 09:00 Resp 16 02/27/20 09:00 BP 118/70 02/27/20 09:00 Pulse Ox 93 L 02/27/20 09:00 Intake & Output 02/26/20 02/27/20 02/27/20 18:59 06:59 18:59 Intake Total 240 240 Output Total 300 350 Balance -60 -110 Intake: Oral 240 240 Output: Urine 300 350 Other: Voiding Method Bedside Commode Bedside Commode Bedside Commode # Voids 2 - Exam GENERAL: The patient is alert and oriented x3, not in any acute distress. Well developed, well nourished. HEENT: Pupils are round and equally reacting to light. EOMI. No scleral icterus. No conjunctival pallor. Normocephalic, atraumatic. No pharyngeal erythema. No thyromegaly. CARDIOVASCULAR: S1 and S2 present. No murmurs, rubs, or gallops. PULMONARY: Chest is clear to auscultation, no wheezing or crackles. ABDOMEN: Soft, nontender, nondistended, normoactive bowel sounds. No palpable organomegaly. MUSCULOSKELETAL: No joint swelling or deformity. EXTREMITIES: No cyanosis, clubbing, or pedal edema. NEUROLOGICAL: Gross neurological examination did not reveal any focal deficits. SKIN: No rashes. no petechiae. - Labs CBC & Chem 7: 02/24/20 07:06 02/24/20 07:06 Labs: Microbiology - Last 24 Hours (Table) 02/24/20 15:38 Urine Culture - Final Urine,Clean Catch Escherichia coli Assessment and Plan Assessment: -Chest pain, Stress test is showing possible reversible area of ischemia in the septum, recommended outpatient follow-up -acute urinary tract infection , with ESBL E. coli, DC Lovenox is seen and start ertapenem heart failure CVA/TIA Atrial fibrillation on anticoagulation Deep venous thrombosis, on Coumadin. With subtherapeutic INR GERD hypertension memory impairment osteoarthritis ulcerative colitis Parkinson disease diverticulitis Continue same treatment. Continue with symptomatic treatment. Resume home medication. Monitor lytes and vitals. DVT and GI prophylaxis. Further recommendations of the clinical course of the patient DVT prophylaxis On warfarin GI Prophylaxis: Pepcid Prognosis is guarded Plan: This is a pleasant 79 years old female who presents because of chest pain. Follow-up results of stress test. Follow-up results of urine culture, continue with levofloxacin to 250 mg daily. Monitor INR. She turned back to correction in stable Labs and medication were reviewed.. Continue same treatment. Continue with symptomatic treatment. Resume home medication. Monitor lytes and vitals. DVT and GI prophylaxis. Further recommendations of the clinical course of the patient DVT prophylaxis On warfarin GI Prophylaxis: Pepcid Prognosis is guarded
[2020-02-28 04:05] LABS: Appearance,Urine Clear (Clear); Bilirubin,Urine Negative (Negative); Blood,Urine Negative (Negative); Color,Urine Yellow; Glucose,Urine (UA) Negative (Negative); Ketones,Urine Trace (Negative); Leukocyte Esterase,Urine Negative (Negative); Nitrite,Urine Negative (Negative); PH, Urine 5.5 (5.0-8.0); Protein,Urine Negative (Negative); Specific Gravity,Urine 1.024 (1.001-1.035)
[2020-02-28] MEDS: PANTOPRAZOLE 40 MG TABLET PO SCH (06:31)
[2020-02-28] MEDS: ONDANSETRON 4 MG/2 ML VIAL IVP PRN (06:48)
--- NOTE | 2020-02-28 07:09 | P.CONS ---
History of Present Illness - Reason for Consult Consult date: 02/27/20 ESBL E. coli urinary tract infection Requesting physician: Elroy E José Miguel - Chief Complaint Burning urine x few days - History of Present Illness Patient is 79 year female with a past medical history significant for recurrent urinary tract infections and ESBL E. coli patient is currently a resident of a local skilled nursing, patient was brought to the hospital a few days ago with the chest pain that started today she was in the hospital pain was mostly sharp almost 6-7 out of 10 and Radiation to the left arm patient has been admitted to the hospital for cardiac workup patient also have a UA of pain which is mildly positive she has no fever or elevated white count urine culture now showing ESBL E. coli that has prompted this infection disease consultation, patient is saying she to have a difficult urination and also having some burning with it and some pain in the suprapubic area more of a dull aching 3-4 out of 10 and no radiation no flank pain nausea but no vomiting and no diarrhea Review of Systems Positive point has been mentioned in the HPI rest of the systems are negative Past Medical History Past Medical History: Asthma, Heart Failure, CVA/TIA, Deep Vein Thrombosis (DVT) , GERD/Reflux, Hypertension, Memory Impairment, Musculoskeletal Disorder, Neurologic Disorder, Osteoarthritis (OA) Additional Past Medical History / Comment(s): Ulcerative colitis, diverticulitis, parkinson's disease, CVA which pt was unaware of having-showed on cat scan, several DVTs bilateral legs and pt states since she has had intermittent bilateral ankle edema, thrombophlebitis, PE-pt cannot recall laterallity, generalized arthritis, urinary leakage, UTIs, shingles x 2 History of Any Multi-Drug Resistant Organisms: ESBL Year Discovered:: 11/27/19 ESBL E.coli MDRO Source:: Urine Past Surgical History: Appendectomy, Cholecystectomy, Hysterectomy, Orthopedic Surgery, Tubal Ligation Additional Past Surgical History / Comment(s): L shoulder injury with surgery to repair, removals of DVTs bilateral legs, cataract removal/lens implants, colo noscopies, hemorrohoids surgery Past Anesthesia/Blood Transfusion Reactions: Postoperative Nausea & Vomiting (PONV) Additional Past Anesthesia/Blood Transfusion Reaction / Comm: Pt received blood with hysterectomy without reaction. Past Psychological History: Anxiety Additional Psychological History / Comment(s): Pt resides at [facility]. Daughter can no longer care for her. She moved here from [place] to live with her daughter 3 yrs ago. She ambulates with a walker. She no longer drives, her d normahter takes her to [employer]. She is otherwise independent. Retired. Nonsmoker. No experience. No animal exposures. No travel. Smoking Status: Never smoker Past Alcohol Use History: None Reported Past Drug Use History: None Reported - Past Family History Father Family Medical History: Asthma, Cancer, COPD Additional Family Medical History / Comment(s): Gallbladder cancer Mother Family Medical History: Myocardial Infarction (MD) Additional Family Medical History / Comment(s): Mother of a MD at the age of 48 yrs. Sister(s) Additional Family Medical History / Comment(s): Sister of a blood clot at age 38 yrs-pt cannot recall specifics. Medications and Allergies Home Medications Medication Instructions Recorded Confirmed Type Omeprazole [PriLOSEC] 20 mg PO DAILY 01/11/19 02/24/20 History Cholecalciferol [Vitamin D3 (25 2,000 unit PO DAILY@0900 02/19/19 02/24/20 History Mcg = 1000 Iu)] bisacodyL [Dulcolax] 5 mg PO DAILY@0900 02/19/19 02/24/20 History Carbidopa-Levodopa 25-100 mg 1 tab PO TID@0900,1300,1700 07/30/19 02/24/20 History [Sinemet 25-100 mg] Acetaminophen Tab [Tylenol] 650 mg PO Q4H PRN #1 tablet 08/23/19 02/24/20 Rx Carbidopa/Levodopa [Sinemet CR 1 tab PO HS@2100 10/15/19 02/24/20 History 50-200 mg] Lisinopril [Zestril] 10 mg PO DAILY@0900 10/15/19 02/24/20 History Melatonin 10 mg PO HS 10/15/19 02/24/20 History Mirabegron [Myrbetriq] 25 mg PO HS 10/15/19 02/24/20 History Warfarin [Coumadin] 1 mg PO MOWEFR@1700 10/15/19 02/24/20 History Atorvastatin [Lipitor] 40 mg PO DAILY tab 10/19/19 02/24/20 Rx Metoprolol Tartrate [Lopressor] 50 mg PO DAILY tab 10/19/19 02/24/20 Rx amLODIPine [Norvasc] 5 mg PO DAILY tab 10/19/19 02/24/20 Rx Lactulose 10 gm PO HS 02/24/20 02/24/20 History Warfarin [Coumadin] 2 mg PO SUTUTHSA@1700 02/24/20 02/24/20 History traMADol HCL [Ultram] 50 mg PO Q8H PRN 02/24/20 02/24/20 History Allergies Allergy/AdvReac Type Severity Reaction Status Date / Time Influenza Virus Vaccines Allergy Swelling Verified 02/24/20 09:44 Penicillins Allergy Anaphylaxis Verified 02/24/20 09:44 Iodinated Contrast Media AdvReac Chest Pain Verified 02/24/20 09:44 [Iodinated Contrast- Oral and IV Dye] Physical Exam Vitals: Vital Signs Temp Pulse Resp BP Pulse Ox 02/27/20 15:20 115/68 02/27/20 15:00 97.7 F 55 L 16 85/44 94 L 02/27/20 09:00 97.6 F 76 16 118/70 93 L 02/27/20 03:00 98.1 F 66 16 108/58 95 02/26/20 20:08 97.8 F 63 14 96/53 95 Intake and Output 02/27/20 02/27/20 02/27/20 06:59 14:59 22:59 Intake Total 580 Output Total 350 375 Balance -350 205 Intake: Intake, IV Titration 200 Amount Sodium Chloride 0.9% 1, 200 000 ml @ 50 mls/hr IV . Q20H [facility] Rx#:[id number] Oral 380 Output: Urine 350 375 Other: Voiding Method Bedside Commode Bedside Commode Bedside Commode GENERAL DESCRIPTION: Elderly female lying in bed, no distress. No tachypnea or accessory muscle of respiration use. HEENT: Shows Pallor , no scleral icterus. Oral mucous membrane is dry. No pharyngeal erythema or thrush NECK: Trachea central, no thyromegaly. LUNGS: Unlabored breathing. Clear to auscultation anteriorly. No wheeze or crackle. HEART: S1, S2, regular rate and rhythm. No loud murmur ABDOMEN: Soft, no tenderness , guarding or rigidity, no organomegaly EXTREMITIES: No edema of feet. SKIN: No rash, no masses palpable. NEUROLOGICAL: The patient is awake, alert, oriented x3, mood and affect normal. Results CBC & Chem 7: 02/24/20 07:06 02/24/20 07:06 Labs: Microbiology - Last 24 Hours (Table) 02/24/20 15:38 Urine Culture - Final Urine,Clean Catch Escherichia coli Assessment and Plan Assessment: 1- patient with positive urine culture with ESBL E. coli this patient who did have a History of recurrent urinary tract infection secondary to the same pathogen patient did not have any fever or elevated white count and vancomycin for possible cystitis 2-penicillin ALLERGY (1) UTI due to extended-spectrum beta lactamase (ESBL) producing Escherichia coli Current Visit: No Status: Acute Code(s): N39.0 - URINARY TRACT INFECTION, SITE NOT SPECIFIED; B96.29 - OTH ESCHERICHIA COLI THE CAUSE OF DISEASES CLASSD ELSWHR; Z16.12 - EXTENDED SPECTRUM BETA LACTAMASE (ESBL) RESISTANCE SNOMED Code(s): 011977231 Plan: 1- we will repeat her UA and culture 2- at Invanz 1 g IV piggyback daily 3-if repeat UA is still positive recommend 3 day course of Invanz however if repeat UA is negative recommended discontinuing of IV Invanz We will follow on clinical condition and cultures to further adjust medication if needed Thank you for this consultation will follow this patient with you Time with Patient: Greater than 30
[2020-02-28 08:09] VITALS: BP 124/71; PULSE 70; RESP 14
[2020-02-28] MEDS: ERTAPENEM 1 GM in SODIUM CHLORIDE 0.9% 50 ML IVPB SCH (08:58)
[2020-02-28] MEDS: CARBIDOPA-LEVODOPA 25-100 MG 1 EACH TAB PO SCH ×2 (08:59→13:22)
[2020-02-28] MEDS: lisinopriL 10 MG TAB PO SCH (08:59)
[2020-02-28] MEDS: ASPIRIN 325 MG TAB PO SCH (08:59)
[2020-02-28] MEDS: bisacodyL 5 MG TABLET.DR PO SCH (08:59)
[2020-02-28] MEDS: CHOLECALCIFEROL 1,000 UNIT TAB PO SCH (08:59)
[2020-02-28] MEDS: METOPROLOL TARTRATE 50 MG TAB PO SCH (08:59)
[2020-02-28] MEDS: ATORVASTATIN 40 MG TAB PO SCH (09:00)
[2020-02-28] MEDS: HYDROcodone/APAP 7.5-325MG 1 EACH TAB PO PRN (09:00)
[2020-02-28] MEDS: amLODIPine 5 MG TAB PO SCH (09:00)
--- NOTE | 2020-02-28 10:57 | EST ---
EXERCISE STRESS AGE: 79 SEX: F HT: 63" WT: 163 lbs. PROTOCOL: Lexiscan Cardiolite STAGE: DURATION OF EXERCISE: HEART RATE REST: 66 BLOOD PRESSURE REST: 132/58 MAXIMUM HEART RATE ACHIEVED: 79 MAXIMUM BLOOD PRESSURE: 132/58 85% MPHR: 120 100% MPHR: 141 METS: INDICATIONS: Chest pain. Baseline EKG revealed normal sinus rhythm without significant ST-T changes. Patient was administered Lexiscan as per protocol. Heart rate went up from 66 to 79 beats per minute, blood pressure changed from 132/58 to 116/43, and came back to baseline. He has some uncomfortable feeling in the stomach which was transient. EKG remained unremarkable. By EKG criteria, this is unremarkable Lexiscan stress test. The nuclear scan results will be reported by the radiologist.. OPAL / LIBRADON: [id number] /
--- NOTE | 2020-02-28 13:52 | P.DS ---
Providers Date of admission: 02/24/20 08:35 Expected date of discharge: 02/28/20 Attending physician: Elroy Valdez MD Consults: 02/24/20 08:28 Consult Physician Urgent Consulting Provider: Lottie Wong Consult Reason/Comments: chest pain Do you want consulting provider notified?: Yes 02/26/20 20:06 Consult Physician Routine Consulting Provider: Jarocho Alas Consult Reason/Comments: ESBL E coli Do you want consulting provider notified?: Yes Primary care physician: [facility] Course: Presenting complaint: Chest pain Hospital course: This is a very pleasant 78-year-old patient of Dr. Benitez. Lives at [facility] in [facility]. Chronic stable medical conditions include asthma hypertension osteoarthritis, diverticulosis, Parkinson's disease,chronic DVT and chronically on Coumadin, CHF. EF of 55-60% patient has chronic lower extremities swelling from venous insufficiency. Patient's had multiple UTIs. Baseline uses a walker Presented with chest pain and dysuria. Nuclear stress test showed no reversible abnormality. Seen and cleared by currently. Initial urine culture did grow ESBL/E. coli. Patient was started on Invanz. Repeat UA was negative. Antibiotics discontinued as per Dr. Alas from [place]. [place] planning more than 35 minutes. Consultation: Cardiology associates Dr. Alas from [place] Physical examination: VITAL SIGNS: 97.9, 70, 14, 124/71, 92% on room air GENERAL: Laying in bed, comfortable EYES: Pupils equal. Conjunctiva normal. HEENT: External appearance of nose and ears normal, oral cavity grossly normal. NECK: JVD not raised; masses not palpable. HEART: First and second heart sounds are normal; edema present. LUNGS: Respiratory rate normal, decreased breath sounds ABDOMEN: Soft, no tenderness, no guarding or rigidity, liver spleen not palpable, no masses palpable. PSYCH: Alert and oriented x3; mood and affect normal. MUSCULOSKELETAL: Evidence of OA especially in the hands Investigations reviewed in the clinical context: Nuclear stress test-negative EKG tracing-poor LV progression. Sinus rhythm. Chest [id number] of basilar infiltrate. INR 2.3 White count 6.7 hemoglobin 13.7 potassium 2.8 creatinine 0.63 Troponin I 3 negative Initial urine culture showing E. coli/ESBL.. Repeat UA negative. Discharge diagnoses: -Anterior chest fall. Possibly musculoskeletal. -Chronic intermittent dysuria. Current UTI ruled out. -Chronic congestive heart failure from diastolic dysfunction EF 55-60% -Chronic DVT for which patient chronically on Coumadin -GERD -Essential hypertension -Mild cognitive impairment from underlying Alzheimer's dementia -Primary osteoarthritis -Idiopathic Parkinson's disease -Chronic urinary stress incontinence -Chronic gait dysfunction uses a walker -Chronic lower extremity swelling from DVT causing venous insufficiency Disposition: [facility] Patient Condition at Discharge: Stable Plan - Discharge Summary Discharge Rx Participant: No New Discharge Prescriptions: Continue Omeprazole [PriLOSEC] 20 mg PO DAILY Cholecalciferol [Vitamin D3 (25 Mcg = 1000 Iu)] 2,000 unit PO DAILY@0900 bisacodyL [Dulcolax] 5 mg PO DAILY@0900 Carbidopa-Levodopa 25-100 mg [Sinemet 25-100 mg] 1 tab PO TID@0900,1300,1700 Acetaminophen Tab [Tylenol] 650 mg PO Q4H PRN #1 tablet PRN Reason: Pain Carbidopa/Levodopa [Sinemet CR 50-200 mg] 1 tab PO HS@2100 Lisinopril [Zestril] 10 mg PO DAILY@0900 Melatonin 10 mg PO HS Mirabegron [Myrbetriq] 25 mg PO HS Warfarin [Coumadin] 1 mg PO MOWEFR@1700 Atorvastatin [Lipitor] 40 mg PO DAILY tab Metoprolol Tartrate [Lopressor] 50 mg PO DAILY tab amLODIPine [Norvasc] 5 mg PO DAILY tab Lactulose 10 gm PO HS Warfarin [Coumadin] 2 mg PO SUTUTHSA@1700 traMADol HCL [Ultram] 50 mg PO Q8H PRN #9 tab PRN Reason: Pain Discharge Medication List Omeprazole [PriLOSEC] 20 mg PO DAILY 01/11/19 [History] Cholecalciferol [Vitamin D3 (25 Mcg = 1000 Iu)] 2,000 unit PO DAILY@0900 02/19/19 [History] bisacodyL [Dulcolax] 5 mg PO DAILY@0900 02/19/19 [History] Carbidopa-Levodopa 25-100 mg [Sinemet 25-100 mg] 1 tab PO TID@0900,1300,1700 07/30/19 [History] Acetaminophen Tab [Tylenol] 650 mg PO Q4H PRN #1 tablet 08/23/19 [Rx] Carbidopa/Levodopa [Sinemet CR 50-200 mg] 1 tab PO HS@2100 10/15/19 [History] Lisinopril [Zestril] 10 mg PO DAILY@0900 10/15/19 [History] Melatonin 10 mg PO HS 10/15/19 [History] Mirabegron [Myrbetriq] 25 mg PO HS 10/15/19 [History] Warfarin [Coumadin] 1 mg PO MOWEFR@1700 10/15/19 [History] Atorvastatin [Lipitor] 40 mg PO DAILY tab 10/19/19 [Rx] Metoprolol Tartrate [Lopressor] 50 mg PO DAILY tab 10/19/19 [Rx] amLODIPine [Norvasc] 5 mg PO DAILY tab 10/19/19 [Rx] Lactulose 10 gm PO HS 02/24/20 [History] Warfarin [Coumadin] 2 mg PO SUTUTHSA@1700 02/24/20 [History] traMADol HCL [Ultram] 50 mg PO Q8H PRN #9 tab 02/28/20 [Rx] Follow up Appointment(s)/Referral(s): Lottie Wong MD [STAFF PHYSICIAN] - 03/09/20 9:30 am Jesus Cooney MD [Primary Care Provider] - 02/29/20 1:00 pm
--- NOTE | 2020-02-28 14:30 | PN ---
PROGRESS NOTE DATE OF SERVICE: 02/28/2020 REASON FOR FOLLOWUP: ESBL E coli positive culture. INTERVAL HISTORY: The patient is currently afebrile. The patient is breathing comfortably. Still complaining of some discomfort. No chest pain or cough. No abdominal pain or diarrhea. PHYSICAL EXAMINATION: Blood pressure 124/71 with a pulse of 70, temperature 97.9. She is 92% on room air. General description is an elderly female lying in bed in no distress. RESPIRATORY SYSTEM: Unlabored breathing, clear to auscultation anteriorly. HEART: S1, S2. Regular rate and rhythm. ABDOMEN: Soft, no tenderness. LABS: Repeat urine is negative. DIAGNOSTIC IMPRESSION AND PLAN: Patient has positive urine culture with ESBL E coli, very low colony count, possible colonization. The patient did have some urinary symptom, underlying cystitis not yet excluded. She will get a dose of Invanz today. Otherwise, antibiotic can be safely discontinued. No need for antibiotic on discharge. MMODL / IJN: [id number] /
== END 2020-02-28 14:57 ==
LOC: EC 06:25 → 3NCARDOBS 08:35
PROVIDERS: ADMIT Internal Medicine; ATTEND Internal Medicine
DX: R07.89 Other chest pain (principal); R30.0 Dysuria; R11.0 Nausea; R42 Dizziness and giddiness; R06.00 Dyspnea, unspecified; R94.31 Abnormal electrocardiogram [ECG] [EKG]; R79.1 Abnormal coagulation profile; G20 Parkinson's disease; J45.909 Unspecified asthma, uncomplicated; K21.9 Gastro-esophageal reflux disease without esophagitis; I48.0 Paroxysmal atrial fibrillation; I87.2 Venous insufficiency (chronic) (peripheral); I11.0 Hypertensive heart disease with heart failure; I50.32 Chronic diastolic (congestive) heart failure; F02.80 Dementia in other diseases classified elsewhere, unspecified severity, without behavioral disturbance, psychotic disturbance, mood disturbance, and anxiety; G30.9 Alzheimer's disease, unspecified; M19.91 Primary osteoarthritis, unspecified site; R41.3 Other amnesia; M19.90 Unspecified osteoarthritis, unspecified site; F41.9 Anxiety disorder, unspecified; K51.90 Ulcerative colitis, unspecified, without complications; K57.92 Diverticulitis of intestine, part unspecified, without perforation or abscess without bleeding; N39.3 Stress incontinence (female) (male); R26.9 Unspecified abnormalities of gait and mobility; M79.89 Other specified soft tissue disorders; Z88.6 Allergy status to analgesic agent; Z79.899 Other long term (current) drug therapy; Z79.01 Long term (current) use of anticoagulants; Z79.891 Long term (current) use of opiate analgesic; Z88.0 Allergy status to penicillin; Z88.7 Allergy status to serum and vaccine; Z91.048 Other nonmedicinal substance allergy status; Z87.891 Personal history of nicotine dependence; Z86.718 Personal history of other venous thrombosis and embolism; Z86.711 Personal history of pulmonary embolism; Z87.440 Personal history of urinary (tract) infections; Z86.19 Personal history of other infectious and parasitic diseases; Z86.73 Personal history of transient ischemic attack (TIA), and cerebral infarction without residual deficits; Z90.49 Acquired absence of other specified parts of digestive tract; Z16.24 Resistance to multiple antibiotics; Z82.5 Family history of asthma and other chronic lower respiratory diseases; Z80.0 Family history of malignant neoplasm of digestive organs; Z82.49 Family history of ischemic heart disease and other diseases of the circulatory system; B96.20 Unspecified Escherichia coli [E. coli] as the cause of diseases classified elsewhere; Z16.12 Extended spectrum beta lactamase (ESBL) resistance; Z20.828 Contact with and (suspected) exposure to other viral communicable diseases
CPT/HCPCS: 93005 ×3; 96365; 96366 ×3; 96367; 96375 ×3; 96376 ×3; 96361; 99285; 36415; 93017; 97162; 97535; 97166; 85379; 83880; 80061; 80053; 83735; 84484; 85025; 85610 ×3; 85730; 81003; 81001; 87086; 87077; 87186; 71046; 78452; G0378 ×5; U0003; A9500; J2405 ×2; J1956 ×3; J0280; J1335 ×2; J2270; J2785

== ENCOUNTER 2020-06-22 23:28 | Emergency (ER) | payer MEDICARE, OTHER ==
--- NOTE | 2020-06-22 23:34 | ED ---
Chest Pain HPI - General Stated Complaint: chest pain Time Seen by Provider: 06/22/20 23:30 Source: RN notes reviewed, old records reviewed Limitations: no limitations - History of Present Illness Initial Comments: This is an 80-year-old female DF presented for evaluation regards to chest pain patient presents from [facility] with underlying history of dementia so mildly poor strain patient had chest pain at [facility] was given nitro and symptoms improved. Patient is a complex and comfort care medical history was obtained from chart MD Complaint: chest pain -: minutes(s) Onset: during rest Pain Location: substernal Pain Radiation: LUE Severity: mild Severity scale (1-10): 3 Quality: tightness Consistency: now resolved Improves With: nothing Other Symptoms: palpitations Treatments Prior to Arrival: none - Related Data Home Medications Medication Instructions Recorded Confirmed Omeprazole [PriLOSEC] 20 mg PO DAILY 01/11/19 02/24/20 Cholecalciferol [Vitamin D3 (25 2,000 unit PO DAILY@0900 02/19/19 02/24/20 Mcg = 1000 Iu)] bisacodyL [Dulcolax] 5 mg PO DAILY@0900 02/19/19 02/24/20 Carbidopa-Levodopa 25-100 mg 1 tab PO TID@0900,1300,1700 07/30/19 02/24/20 [Sinemet 25-100 mg] Carbidopa/Levodopa [Sinemet CR 1 tab PO HS@2100 10/15/19 02/24/20 50-200 mg] Lisinopril [Zestril] 10 mg PO DAILY@0900 10/15/19 02/24/20 Melatonin 10 mg PO HS 10/15/19 02/24/20 Mirabegron [Myrbetriq] 25 mg PO HS 10/15/19 02/24/20 Warfarin [Coumadin] 1 mg PO MOWEFR@1700 10/15/19 02/24/20 Lactulose 10 gm PO HS 02/24/20 02/24/20 Warfarin [Coumadin] 2 mg PO SUTUTHSA@1700 02/24/20 02/24/20 Previous Rx's Medication Instructions Recorded Acetaminophen Tab [Tylenol] 650 mg PO Q4H PRN #1 tablet 08/23/19 Atorvastatin [Lipitor] 40 mg PO DAILY tab 10/19/19 Metoprolol Tartrate [Lopressor] 50 mg PO DAILY tab 10/19/19 amLODIPine [Norvasc] 5 mg PO DAILY tab 10/19/19 traMADol HCL [Ultram] 50 mg PO Q8H PRN #9 tab 02/28/20 Allergies Allergy/AdvReac Type Severity Reaction Status Date / Time Influenza Virus Vaccines Allergy Swelling Verified 06/22/20 23:36 Penicillins Allergy Anaphylaxis Verified 06/22/20 23:36 Iodinated Contrast Media AdvReac Chest Pain Verified 06/22/20 23:36 [Iodinated Contrast- Oral and IV Dye] Review of Systems ROS Statement: Those systems with pertinent positive or pertinent negative responses have been documented in the HPI. ROS Other: All systems not noted in ROS Statement are negative. EKG Findings - EKG Comments: EKG Findings:: EKG is sinus rhythm 67 RI 128 QRS 88 QTc 412 Past Medical History Past Medical History: Asthma, Heart Failure, CVA/TIA, Deep Vein Thrombosis (DVT), GERD/Reflux, Hypertension, Memory Impairment, Musculoskeletal Disorder, Neurologic Disorder, Osteoarthritis (OA) Additional Past Medical History / Comment(s): Ulcerative colitis, diverticulitis, parkinson's disease, CVA which pt was unaware of having-showed on cat scan, several DVTs bilateral legs and pt states since she has had intermittent bilateral ankle edema, thrombophlebitis, PE-pt cannot recall laterallity, generalized arthritis, urinary leakage, UTIs, shingles x 2 History of Any Multi-Drug Resistant Organisms: ESBL Date of last positivie culture/infection: 04/13/20 MDRO Source:: URINE Past Surgical History: Appendectomy, Cholecystectomy, Hysterectomy, Orthopedic Surgery, Tubal Ligation Additional Past Surgical History / Comment(s): L shoulder injury with surgery to repair, removals of DVTs bilateral legs, cataract removal/lens implants, colonoscopies, hemorrohoids surgery Past Anesthesia/Blood Transfusion Reactions: Postoperative Nausea & Vomiting (PONV) Additional Past Anesthesia/Blood Transfusion Reaction / Comment(s): Pt received blood with hysterectomy without reaction. Past Psychological History: Anxiety Additional Psychological History / Comment(s): Pt resides at [facility]. Daughter can no longer care for her. She moved here from [place] to live with her daughter 3 yrs ago. She ambulates with a walker. She no longer drives, her daughter takes her to [employer]. She is otherwise independent. Retired. Nonsmoker. No experience. No animal exposures. No travel. Smoking Status: Never smoker Past Alcohol Use History: None Reported Past Drug Use History: None Reported - Past Family History Father Family Medical History: Asthma, Cancer, COPD Additional Family Medical History / Comment(s): Gallbladder cancer Mother Family Medical History: Myocardial Infarction ([place]) Additional Family Medical History / Comment(s): Mother of a [place] at the age of 48 yrs. Sister(s) Additional Family Medical History / Comment(s): Sister of a blood clot at age 38 yrs-pt cannot recall specifics. General Exam General appearance: alert, in no apparent distress Head exam: Present: atraumatic, normocephalic, normal inspection Eye exam: Present: normal appearance, PERRL, EOMI. Absent: scleral icterus, conjunctival injection, periorbital swelling ENT exam: Present: normal exam, mucous membranes moist Neck exam: Present: normal inspection. Absent: tenderness, meningismus, lymphadenopathy Respiratory exam: Present: normal lung sounds bilaterally. Absent: respiratory distress, wheezes, rales, rhonchi, stridor Cardiovascular Exam: Present: regular rate, normal rhythm, normal heart sounds. Absent: systolic murmur, diastolic murmur, rubs, gallop, clicks GI/Abdominal exam: Present: soft, normal bowel sounds. Absent: distended, tenderness, guarding, rebound, rigid Extremities exam: Present: normal inspection, full ROM, normal capillary refill. Absent: tenderness, pedal edema, joint swelling, calf tenderness Back exam: Present: normal inspection Neurological exam: Present: alert, oriented X3, CN II-XII intact Psychiatric exam: Present: normal affect, normal mood Skin exam: Present: warm, dry, intact, normal color. Absent: rash Course Vital Signs 06/22/20 23:30 Temperature 98.5 F Pulse Rate 67 Respiratory 18 Rate Blood Pressure 149/67 O2 Sat by Pulse 99 Oximetry - Reevaluation(s) Reevaluation #1: 06/23/20 00:28 Medical record is reviewed Reevaluation #2: 06/23/20 00:28 Symptoms improved and patient remains without chest pain here in the ER Reevaluation #3: 06/23/20 00:28 Labs negative troponin negative EKG negative, patient is okay for discharge home Chest Pain MDM - [facility] 80 female for chest pain evaluation, troponin EKG negative. Patient can be discharged home Disposition Clinical Impression: Atypical chest pain, Chest pain Disposition: HOME SELF-CARE Condition: Good Instructions (If sedation given, give patient instructions): Chest Pain (ED) Is patient prescribed a controlled substance at d/c from ED?: No Referrals: Jesus Cooney MD [Primary Care Provider] - 1-2 days
[2020-06-22 23:36] VITALS: PULSE 67
[2020-06-22 23:45] LABS: Basophils # (A) 0.1 k/uL (0-0.2); Basophils % (A) 1 %; Eosinophils # (A) 0.2 k/uL (0-0.7); Eosinophils % (A) 3 %; HCT 36.7 % (34.0-46.0); Lymphocytes # (A) 2.2 k/uL (1.0-4.8); Lymphocytes % (A) 36 %; MCH 31.5 pg (25.0-35.0); MCHC 35.3 g/dL (31.0-37.0); MCV 89.1 fL (80.0-100.0); Mean Platelet Volume 7.7; Monocytes # (A) 0.4 k/uL (0-1.0); Monocytes % (A) 7 %; Neutrophils # (A) 3.1 k/uL (1.3-7.7); Neutrophils % (A) 50 %; Platelet Count 217 k/uL (150-450); RBC 4.12 m/uL (3.80-5.40); RDW 12.9 % (11.5-15.5); WBC 6.2 k/uL (3.8-10.6)
--- NOTE | 2020-06-22 23:57 | XR ---
EXAMINATION TYPE: XR chest 2V DATE OF EXAM: 06/22/2020 COMPARISON: 02/24/2020 HISTORY: Chest pain TECHNIQUE: FINDINGS: Heart is normal. Lungs are clear of infiltrate. There is no heart failure. There are chest leads. There are no hilar masses. Bony thorax is intact. IMPRESSION: No active cardiopulmonary disease. Normal heart. No change.
[2020-06-23 00:01] LABS: ALT <6 U/L (4-34); AST 15 U/L (14-36); African American GFR (CKD) >90 (>60 ml/min/1.73 sqM); Albumin 3.5 g/dL (3.5-5.0); Alkaline Phosphatase 57 U/L (38-126); Anion Gap 2 mmol/L; Blood Urea Nitrogen 19 mg/dL (7-17); Calcium 8.6 mg/dL (8.4-10.2); Carbon Dioxide 30 mmol/L (22-30); Chloride 107 mmol/L (98-107); Glucose 95 mg/dL (74-99); Lipase 45 U/L (23-300); Non-African American GFR(CKD) 83 (>60 ml/min/1.73 sqM); Potassium 3.7 mmol/L (3.5-5.1); Sodium 139 mmol/L (137-145); Total Bilirubin 0.6 mg/dL (0.2-1.3)
[2020-06-23 00:08] LABS: INR 2.1 (<1.2); Partial Thromboplastin Time 28.9 sec (22.0-30.0); Prothrombin Time 20.5 sec (9.0-12.0)
[2020-06-23 00:48] VITALS: BP 101/67; RESP 16; TEMP 98.1
== END 2020-06-23 00:52 | disposition home or self-care (01) ==
LOC: EC 23:28
DX: R07.89 Other chest pain (principal); R00.2 Palpitations; I11.0 Hypertensive heart disease with heart failure; I50.9 Heart failure, unspecified; G20 Parkinson's disease; F03.90 Unspecified dementia, unspecified severity, without behavioral disturbance, psychotic disturbance, mood disturbance, and anxiety; K21.9 Gastro-esophageal reflux disease without esophagitis; J45.909 Unspecified asthma, uncomplicated; F41.9 Anxiety disorder, unspecified; Z79.01 Long term (current) use of anticoagulants; Z79.899 Other long term (current) drug therapy; Z88.0 Allergy status to penicillin; Z88.7 Allergy status to serum and vaccine; Z91.048 Other nonmedicinal substance allergy status; Z86.73 Personal history of transient ischemic attack (TIA), and cerebral infarction without residual deficits; Z86.718 Personal history of other venous thrombosis and embolism
CPT/HCPCS: 36415; 71046; 80053; 83690; 83735; 83880; 84484; 85025; 85610; 85730; 93005; 99285

== ENCOUNTER 2020-07-12 | Emergency (ER) | payer MEDICARE, OTHER ==
[2020-07-12 00:34] VITALS: RESP 18
[2020-07-12] MEDS ORDERED: MORPHINE SULFATE 2 MG/ML SYRINGE IVP STA (00:42)
--- NOTE | 2020-07-12 00:45 | ED ---
Chest Pain HPI - General Chief Complaint: Chest Pain Stated Complaint: Chest Pain Time Seen by Provider: 07/12/20 00:08 Source: EMS Mode of arrival: EMS Limitations: no limitations - History of Present Illness MD Complaint: chest pain -: hour(s) Onset: during rest Pain Location: left chest Pain Radiation: none Severity: moderate Quality: sharp Consistency: constant Improves With: nothing Worsens With: nothing Treatments Prior to Arrival: none - Related Data Home Medications Medication Instructions Recorded Confirmed Omeprazole [PriLOSEC] 20 mg PO DAILY 01/11/19 02/24/20 Cholecalciferol [Vitamin D3 (25 2,000 unit PO DAILY@0900 02/19/19 02/24/20 Mcg = 1000 Iu)] bisacodyL [Dulcolax] 5 mg PO DAILY@0902/19/19 02/24/20 Carbidopa-Levodopa 25-100 mg 1 tab PO TID@0900,1300,1700 07/30/19 02/24/20 [Sinemet 25-100 mg] Carbidopa/Levodopa [Sinemet CR 1 tab PO HS@2100 10/15/19 02/24/20 50-200 mg] Lisinopril [Zestril] 10 mg PO DAILY@0900 10/15/19 02/24/20 Melatonin 10 mg PO HS 10/15/19 02/24/20 Mirabegron [Myrbetriq] 25 mg PO HS 10/15/19 02/24/20 Warfarin [Coumadin] 1 mg PO MOWEFR@1700 10/15/19 02/24/20 Lactulose 10 gm PO HS 02/24/20 02/24/20 Warfarin [Coumadin] 2 mg PO SUTUTHSA@1700 02/24/20 02/24/20 Previous Rx's Medication Instructions Recorded Acetaminophen Tab [Tylenol] 650 mg PO Q4H PRN #1 tablet 08/23/19 Atorvastatin [Lipitor] 40 mg PO DAILY tab 10/19/19 Metoprolol Tartrate [Lopressor] 50 mg PO DAILY tab 10/19/19 amLODIPine [Norvasc] 5 mg PO DAILY tab 10/19/19 traMADol HCL [Ultram] 50 mg PO Q8H PRN #9 tab 02/28/20 Nitrofurantoin Monohyd/M-Cryst 100 mg PO Q12HR #6 cap 07/12/20 [Macrobid] Allergies Allergy/AdvReac Type Severity Reaction Status Date / Time Influenza Virus Vaccines Allergy Swelling Verified 06/22/20 23:36 Penicillins Allergy Anaphylaxis Verified 06/22/20 23:36 Iodinated Contrast Media AdvReac Chest Pain Verified 06/22/20 23:36 [Iodinated Contrast- Oral and IV Dye] Review of Systems ROS Statement: Those systems with pertinent positive or pertinent negative responses have been documented in the HPI. ROS Other: All systems not noted in ROS Statement are negative. EKG Findings - EKG Results: EKG: interpreted by ERMD, sinus rhythm (Rate 62 bpm), normal axis, normal QRS, normal ST/T, no acute changes Past Medical History Past Medical History: Asthma, Heart Failure, CVA/TIA, Deep Vein Thrombosis (DVT), GERD/Reflux, Hypertension, Memory Impairment, Musculoskeletal Disorder, Neurologic Disorder, Osteoarthritis (OA) Additional Past Medical History / Comment(s): Ulcerative colitis, diverticul itis, parkinson's disease, CVA which pt was unaware of having-showed on cat scan, several DVTs bilateral legs and pt states since she has had intermittent bilateral ankle edema, thrombophlebitis, PE-pt cannot recall laterallity, generalized arthritis, urinary leakage, UTIs, shingles x 2 History of Any Multi-Drug Resistant Organisms: ESBL Date of last positivie culture/infection: 04/13/20 MDRO Source:: URINE Past Surgical History: Appendectomy, Cholecystectomy, Hysterectomy, Orthopedic Surgery, Tubal Ligation Additional Past Surgical History / Comment(s): L shoulder injury with surgery to repair, removals of DVTs bilateral legs, cataract removal/lens implants, colonoscopies, hemorrohoids surgery Past Anesthesia/Blood Transfusion Reactions: Postoperative Nausea & Vomiting (PONV) Additional Past Anesthesia/Blood Transfusion Reaction / Comment(s): Pt received blood with hysterectomy without reaction. Past Psychological History: Anxiety Smoking Status: Never smoker Past Alcohol Use History: None Reported Past Drug Use History: None Reported - Past Family History Father Family Medical History: Asthma, Cancer, COPD Additional Family Medical History / Comment(s): Gallbladder cancer Mother Family Medical History: Myocardial Infarction ([place]) Additional Family Medical History / Comment(s): Mother of a [place] at the age of 48 yrs. Sister(s) Additional Family Medical History / Comment(s): Sister of a blood clot at age 38 yrs-pt cannot recall specifics. General Exam Limitations: no limitations General appearance: alert, in no apparent distress Head exam: Present: atraumatic, normocephalic Eye exam: Present: normal appearance. Absent: scleral icterus, conjunctival injection ENT exam: Present: normal oropharynx Neck exam: Present: normal inspection Respiratory exam: Present: normal lung sounds bilaterally, chest wall tenderness. Absent: respiratory distress, wheezes, rales, rhonchi, stridor, accessory muscle use Cardiovascular Exam: Present: regular rate, normal rhythm, normal heart sounds. Absent: systolic murmur, diastolic murmur, rubs, gallop GI/Abdominal exam: Present: soft. Absent: distended, tenderness, guarding, rebound, rigid, mass, pulsatile mass Extremities exam: Present: normal inspection, normal capillary refill. Absent: pedal edema, calf tenderness Back exam: Present: normal inspection. Absent: CVA tenderness (R), CVA tenderness (L) Neurological exam: Present: alert Skin exam: Present: warm, dry, intact, normal color. Absent: rash Course Vital Signs 07/12/20 00:32 Temperature 98.2 F Pulse Rate 65 Respiratory 18 Rate Blood Pressure 145/63 O2 Sat by Pulse 95 Oximetry Disposition Clinical Impression: Chest pain Disposition: HOME SELF-CARE Condition: Good Instructions (If sedation given, give patient instructions): Chest Pain (ED) Prescriptions: Nitrofurantoin Monohyd/M-Cryst [Macrobid] 100 mg PO Q12HR #6 cap Is patient prescribed a controlled substance at d/c from ED?: No Referrals: Jesus Cooney MD [Primary Care Provider] - 1-2 days
[2020-07-12 01:09] LABS: Basophils # (A) 0.1 k/uL (0-0.2); Basophils % (A) 1 %; Eosinophils # (A) 0.2 k/uL (0-0.7); Eosinophils % (A) 2 %; HCT 36.6 % (34.0-46.0); HGB 12.8 gm/dL (11.4-16.0); Lymphocytes % (A) 29 %; MCH 30.9 pg (25.0-35.0); MCHC 34.9 g/dL (31.0-37.0); MCV 88.4 fL (80.0-100.0); Mean Platelet Volume 7.9; Monocytes # (A) 0.4 k/uL (0-1.0); Monocytes % (A) 6 %; Neutrophils % (A) 60 %; Platelet Count 221 k/uL (150-450); RBC 4.14 m/uL (3.80-5.40); RDW 12.7 % (11.5-15.5); WBC 6.7 k/uL (3.8-10.6)
--- NOTE | 2020-07-12 01:14 | XR ---
EXAM: XR Chest, 1 View CLINICAL HISTORY: ITS.REASON XR Reason: chest pain TECHNIQUE: Frontal view of the chest. COMPARISON: 06/22/2020 FINDINGS: Lungs: Clear lungs. Pleural space: Unremarkable. No pneumothorax. Heart: Unremarkable. No cardiomegaly. Mediastinum: Unremarkable. Bones/joints: Unremarkable. IMPRESSION: No acute pulmonary process.
[2020-07-12 01:19] LABS: ALT 7 U/L (4-34); AST 16 U/L (14-36); African American GFR (CKD) >90 (>60 ml/min/1.73 sqM); Albumin 3.2 g/dL (3.5-5.0); Alkaline Phosphatase 54 U/L (38-126); Anion Gap 2 mmol/L; Blood Urea Nitrogen 20 mg/dL (7-17); Calcium 8.7 mg/dL (8.4-10.2); Carbon Dioxide 30 mmol/L (22-30); Chloride 108 mmol/L (98-107); Glucose 111 mg/dL (74-99); Magnesium 1.8 mg/dL (1.6-2.3); Non-African American GFR(CKD) 84 (>60 ml/min/1.73 sqM); Potassium 3.6 mmol/L (3.5-5.1); Sodium 140 mmol/L (137-145); Total Bilirubin 0.6 mg/dL (0.2-1.3); Total Protein 5.8 g/dL (6.3-8.2)
[2020-07-12 01:27] LABS: D-Dimer <0.17 mg/L FEU (<0.60); Partial Thromboplastin Time 32.5 sec (22.0-30.0); Prothrombin Time 29.5 sec (9.0-12.0)
[2020-07-12 01:55] LABS: Appearance,Urine Cloudy (Clear); Bacteria,Urine Rare /hpf; Bilirubin,Urine Negative (Negative); Blood,Urine Trace (Negative); Color,Urine Yellow; Glucose,Urine (UA) Negative (Negative); Hyaline Casts,Urine 3 /lpf (0-2); Ketones,Urine Trace (Negative); Leukocyte Esterase,Urine Small (Negative); Mucus,Urine Rare /hpf; Nitrite,Urine Negative (Negative); PH, Urine 6.5 (5.0-8.0); Protein,Urine Negative (Negative); RBC,Urine 4 /hpf (0-5); Specific Gravity,Urine 1.025 (1.001-1.035); Squamous Epithelial Cell,Urine 4 /hpf (0-4); WBC,Urine 6 /hpf (0-5)
[2020-07-12] MEDS ORDERED: NITROFURANTOIN MONOHYD/M-CRYST 100 MG CAP PO STA (02:50)
[2020-07-12] MEDS ORDERED: PHENAZOPYRIDINE 100 MG TAB PO ONE (03:00)
[2020-07-12 03:25] VITALS: BP 138/67; PULSE 68; TEMP 98.4
== END 2020-07-12 03:25 | disposition home or self-care (01) ==
LOC: EC
DX: R07.9 Chest pain, unspecified (principal); I11.0 Hypertensive heart disease with heart failure; I50.9 Heart failure, unspecified; K21.9 Gastro-esophageal reflux disease without esophagitis; G20 Parkinson's disease; Z79.899 Other long term (current) drug therapy; Z79.890 Hormone replacement therapy; Z79.01 Long term (current) use of anticoagulants; Z88.7 Allergy status to serum and vaccine; Z88.0 Allergy status to penicillin; Z91.041 Radiographic dye allergy status; Z86.718 Personal history of other venous thrombosis and embolism; Z86.73 Personal history of transient ischemic attack (TIA), and cerebral infarction without residual deficits
CPT/HCPCS: 36415; 93005; 85379; 80053; 83735; 84484; 85025; 85610; 85730; 81001; 71045; 99285; 96374; J2270

== ENCOUNTER 2020-10-19 12:09 | Observation (INO) | payer MEDICARE, OTHER ==
--- NOTE | 2020-10-19 12:35 | ED ---
Chest Pain HPI - General Stated Complaint: Chest pain Time Seen by Provider: 10/19/20 12:09 Source: patient, EMS, RN notes reviewed, old records reviewed Mode of arrival: EMS - History of Present Illness Initial Comments: This is a 80 Y/O female who presents with C/O chest pain that started today Moderate pressure like pain . She states that she feels as if she may have a UTI. The patient was given 324 of ASA and one nitro which caused her BP to decrease to 88/54 MD Complaint: chest pain - Related Data Home Medications Medication Instructions Recorded Confirmed Omeprazole [PriLOSEC] 20 mg PO DAILY@0600 01/11/19 10/19/20 bisacodyL [Dulcolax] 5 mg PO DAILY@0900 02/19/19 10/19/20 Carbidopa-Levodopa 25-100 mg 1 tab PO QID@05,09,,07/30/19 10/19/20 [Sinemet 25-100 mg] Carbidopa/Levodopa [Sinemet CR 1 tab PO HS@2100 10/15/19 10/19/20 50-200 mg] Lisinopril [Zestril] 10 mg PO DAILY@0900 10/15/19 10/19/20 Melatonin 10 mg PO HS 10/15/19 10/19/20 Mirabegron [Myrbetriq] 25 mg PO HS 10/15/19 10/19/20 Warfarin [Coumadin] 1 mg PO MOTH@1700 10/15/19 10/19/20 Warfarin [Coumadin] 2 mg PO SUTUWEFRSA@1700 02/24/20 10/19/20 Atorvastatin [Lipitor] 40 mg PO HS 10/19/20 10/19/20 Cholecalciferol [Vitamin D3 (25 50 mcg PO DAILY 10/19/20 10/19/20 Mcg = 1000 Iu)] Yulissa-Lanta 10 ml PO TID PRN 10/19/20 10/19/20 Nitroglycerin Sl Tabs [Nitrostat] 0.4 mg SUBLINGUAL Q5M PRN 10/19/20 10/19/20 Polyethylene Glycol 3350 [Miralax] 17 gm PO BID 10/19/20 10/19/20 Previous Rx's Medication Instructions Recorded Acetaminophen Tab [Tylenol] 650 mg PO Q4H PRN #1 tablet 08/23/19 Metoprolol Tartrate [Lopressor] 50 mg PO DAILY tab 10/19/19 amLODIPine [Norvasc] 5 mg PO DAILY tab 10/19/19 traMADol HCL [Ultram] 50 mg PO Q8H PRN #9 tab 02/28/20 Allergies Allergy/AdvReac Type Severity Reaction Status Date / Time Influenza Virus Vaccines Allergy Swelling Verified 10/19/20 13:19 Penicillins Allergy Anaphylaxis Verified 10/19/20 13:19 Iodinated Contrast Media AdvReac Chest Pain Verified 10/19/20 13:19 [Iodinated Contrast- Oral and IV Dye] Review of Systems ROS Statement: Those systems with pertinent positive or pertinent negative responses have been documented in the HPI. ROS Other: All systems not noted in ROS Statement are negative. Limitations: ROS unobtainable due to patients medical condition Past Medical History Past Medical History: Asthma, Heart Failure, CVA/TIA, Deep Vein Thrombosis (DVT), GERD/Reflux, Hypertension, Memory Impairment, Musculoskeletal Disorder, Neurologic Disorder, Osteoarthritis (OA) Additional Past Medical History / Comment(s): Ulcerative colitis, diverticulitis, parkinson's disease, CVA which pt was unaware of having-showed on cat scan, several DVTs bilateral legs and pt states since she has had intermittent bilateral ankle edema, thrombophlebitis, PE-pt cannot recall laterallity, generalized arthritis, urinary leakage, UTIs, shingles x 2 History of Any Multi-Drug Resistant Organisms: ESBL Date of last positivie culture/infection: 09/12/20 MDRO Source:: URINE ESBL Past Surgical History: Appendectomy, Cholecystectomy, Hysterectomy, Orthopedic Surgery, Tubal Ligation Additional Past Surgical History / Comment(s): L shoulder injury with surgery to repair, removals of DVTs bilateral legs, cataract removal/lens implants, colonoscopies, hemorrohoids surgery Past Anesthesia/Blood Transfusion Reactions: Postoperative Nausea & Vomiting (PONV) Additional Past Anesthesia/Blood Transfusion Reaction / Comment(s): Pt received blood with hysterectomy without reaction. Past Psychological History: Anxiety Smoking Status: Never smoker Past Alcohol Use History: None Reported Past Drug Use History: None Reported - Past Family History Father Family Medical History: Asthma, Cancer, COPD Additional Family Medical History / Comment(s): Gallbladder cancer Mother Family Medical History: Myocardial Infarction ([place]) Additional Family Medical History / Comment(s): Mother of a [place] at the age of 48 yrs. Sister(s) Additional Family Medical History / Comment(s): Sister of a blood clot at age 38 yrs-pt cannot recall specifics. General Exam - General Exam Comments Initial Comments: This is a well developed well neurished patien General appearance: alert, in no apparent distress Head exam: Present: atraumatic, normocephalic, normal inspection Eye exam: Present: normal appearance, PERRL, EOMI. Absent: scleral icterus, conjunctival injection, periorbital swelling ENT exam: Present: normal exam, mucous membranes moist Neck exam: Present: normal inspection. Absent: tenderness, meningismus, lymphadenopathy Respiratory exam: Present: normal lung sounds bilaterally, chest wall tenderness. Absent: respiratory distress, wheezes, rales, rhonchi, stridor Cardiovascular Exam: Present: regular rate, normal rhythm, normal heart sounds. Absent: systolic murmur, diastolic murmur, rubs, gallop, clicks GI/Abdominal exam: Present: soft, normal bowel sounds. Absent: distended, tenderness, guarding, rebound, rigid Extremities exam: Present: normal inspection, full ROM, normal capillary refill, pedal edema. Absent: tenderness, joint swelling, calf tenderness Back exam: Present: normal inspection Neurological exam: Present: alert, oriented X3, CN II-XII intact Psychiatric exam: Present: normal affect, normal mood Skin exam: Present: warm, dry, intact, normal color. Absent: rash Course Vital Signs 10/19/20 12:36 Temperature 98 F Pulse Rate 55 L Respiratory 16 Rate Blood Pressure 136/67 O2 Sat by Pulse 96 Oximetry Chest Pain MDM - MDM Patient states evidence of urinary tract infection she'll be placed on appropriate medication I did discuss case with Dr. Levy patient be admitted for inpatient treatment and care Disposition Clinical Impression: Atypical chest pain, Urinary tract infection, Dehydration Disposition: ADMITTED IP TO THIS HOSP Condition: Fair Referrals: Jesus Cooney MD [Primary Care Provider] - 1-2 days
[2020-10-19] MEDS ORDERED: fentaNYL (PF) 50 MCG/ML 2 ML AMP IV STA ×2 (13:25→16:34)
[2020-10-19 13:43] LABS: Amorphous Sediment,Urine Rare /hpf; Appearance,Urine Cloudy (Clear); Bacteria,Urine Many /hpf; Bilirubin,Urine Negative (Negative); Blood,Urine Negative (Negative); Color,Urine Yellow; Glucose,Urine (UA) Negative (Negative); Hyaline Casts,Urine 5 /lpf (0-2); Ketones,Urine Negative (Negative); Leukocyte Esterase,Urine Large (Negative); Mucus,Urine Occasional /hpf; Nitrite,Urine Positive (Negative); PH, Urine 7.5 (5.0-8.0); Protein,Urine Trace (Negative); RBC,Urine 1 /hpf (0-5); Specific Gravity,Urine 1.019 (1.001-1.035); Squamous Epithelial Cell,Urine 1 /hpf (0-4); Triple Phosphate Crystal,Urine Few /hpf; WBC,Urine 56 /hpf (0-5)
[2020-10-19 13:47] LABS: INR 2.5 (<1.2); Partial Thromboplastin Time 28.4 sec (22.0-30.0); Prothrombin Time 24.4 sec (9.0-12.0)
[2020-10-19 13:49] LABS: Basophils # (A) 0.1 k/uL (0-0.2); Basophils % (A) 1 %; Eosinophils # (A) 0.2 k/uL (0-0.7); Eosinophils % (A) 4 %; HCT 40.1 % (34.0-46.0); HGB 13.4 gm/dL (11.4-16.0); Lymphocytes % (A) 34 %; MCH 29.5 pg (25.0-35.0); MCHC 33.5 g/dL (31.0-37.0); MCV 88.1 fL (80.0-100.0); Monocytes # (A) 0.4 k/uL (0-1.0); Monocytes % (A) 6 %; Neutrophils # (A) 3.1 k/uL (1.3-7.7); Neutrophils % (A) 53 %; Platelet Count 220 k/uL (150-450); RBC 4.55 m/uL (3.80-5.40); RDW 13.9 % (11.5-15.5); WBC 5.8 k/uL (3.8-10.6)
[2020-10-19 13:51] LABS: ALT <6 U/L (4-34); AST 20 U/L (14-36); African American GFR (CKD) >90 (>60 ml/min/1.73 sqM); Albumin 3.8 g/dL (3.5-5.0); Alkaline Phosphatase 57 U/L (38-126); Anion Gap 7 mmol/L; Blood Urea Nitrogen 21 mg/dL (7-17); Carbon Dioxide 28 mmol/L (22-30); Chloride 104 mmol/L (98-107); Creatine Kinase 35 U/L (30-135); Glucose 87 mg/dL (74-99); Magnesium 2.1 mg/dL (1.6-2.3); Non-African American GFR(CKD) 86 (>60 ml/min/1.73 sqM); Potassium 4.3 mmol/L (3.5-5.1); Sodium 139 mmol/L (137-145); Total Bilirubin 0.9 mg/dL (0.2-1.3); Total Protein 6.4 g/dL (6.3-8.2)
--- NOTE | 2020-10-19 14:23 | XR ---
EXAMINATION TYPE: XR chest 2V DATE OF EXAM: 10/19/2020 COMPARISON: 07/12/2020 INDICATION: Chest pain TECHNIQUE: Frontal and lateral views of the chest are obtained. FINDINGS: The heart size is normal. The pulmonary vasculature is normal. The lungs are clear. IMPRESSION: 1. No acute pulmonary process.
[2020-10-19] MEDS ORDERED: cefTRIAXone IN SWFI 1,000 MG/10 ML SYRINGE IVP STA (14:48)
[2020-10-19] MEDS ORDERED: NALOXONE 0.4 MG/ML 1 ML VIAL IV PRN (14:52)
[2020-10-19] MEDS ORDERED: NITROGLYCERIN SL TABS 0.4 MG TAB SUBLINGUAL PRN (14:57)
[2020-10-19] MEDS ORDERED: MAG HYDROX/AL HYDROX/SIMETH 30 ML CUP PO PRN (14:57)
[2020-10-19] MEDS: traMADol 50 MG TAB PO PRN (16:36)
[2020-10-19] MEDS: SODIUM CHLORIDE 0.9% 1,000 ML IV SCH (16:44)
[2020-10-19] MEDS ORDERED: WARFARIN 1 MG TAB PO SCH (17:00)
[2020-10-19] MEDS: CARBIDOPA-LEVODOPA ER 50-200MG 1 EACH TABLET.ER PO SCH (18:24)
--- NOTE | 2020-10-19 19:36 | P.HPIM ---
History of Present Illness H&P Date: 10/19/20 Chief Complaint: Chest pain History of presenting complaint: This is a very pleasant 78-year-old patient of Dr. Benitez. Lives at the [facility]. Uses a wheelchair.. Chronic stable medical conditions include asthma hypertension osteoarthritis, diverticulosis, Parkinson's disease,chronic DVT and chronically on Coumadin. CHF with EF of 55-60% patient has chronic lower e xtremities swelling from venous insufficiency. Patient's had multiple UTIs. Patient now presents with chest pain central for about 2 days. That has been some waxing and waning. Some shortness of breath. Does have some episodes of perspiration. Does feel weak and tired.. radiate down the left arm. Patient did undergo a nuclear stress test in February 2020. That was negative. Appetite is decreased. No fever no chills. No cough Review of systems: GEN.: Tired EYES: None HEENT: Decreased hearing NECK: None RESPIRATORY: None CARDIOVASCULAR: As above GASTROINTESTINAL: None GENITOURINARY: Urinary incontinence MUSCULOSKELETAL: . Multiple joints LYMPHATICS: None HEMATOLOGICAL: None PSYCHIATRY: None NEUROLOGICAL: Chronic gait dysfunction Past medical history to include: Asthma, hypertension, osteoarthritis, diverticulosis, Parkinson's disease, chronic DVT, CHF EF 55-60%, chronic lower extremity swelling from venous insufficiency, multiple UTIs Social history: At [facility], uses a wheelchair No smoking or smoking . Physical examination: VITAL SIGNS: 98, 55, 16, 136/67, 96% on room air GENERAL: Laying in bed, awake, tired EYES: Pupils equal. Conjunctiva normal. HEENT: External appearance of nose and ears normal, oral cavity grossly normal. NECK: JVD not raised; masses not palpable. HEART: First and second heart sounds are normal; edema present. LUNGS: Respiratory rate normal, decreased breath sounds ABDOMEN: Soft, no tenderness, no guarding or rigidity, liver spleen not palpable, no masses palpable. PSYCH: Alert and oriented x3; mood and affect normal. MUSCULOSKELETAL: Evidence of OA especially in the hands LYMPHATICS: No lymph nodes palpable NEUROLOGICAL: Cranial nerves grossly intact, power sensation grossly intact Investigations reviewed in the clinical context: WBC 5.8 hemoglobin 13.4 platelets 220 INR 2.5 potassium 4.3 creatinine 0.61 Troponin I 2 negative UA positive for nitrites, leukoesterase, WBC Coronavirus [PCR]-not detected EKG tracing personally reviewed by me-normal sinus rhythm Chest x-ray film personally reviewed by me-lung goldman clear February 2020: Nuclear stress tests. Negative for ischemia Assessment and plan: -Anterior chest fall. With some cardiac sounding features. Last stress test in February 2020 was negative. troponins are negative. Consult cardiology. Order 2- D echo -Chronic recurrent UTI. Currently no urinary symptoms. No fever no urinary symptoms. 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 Uses a wheelchair -Chronic lower extremity swelling from DVT causing venous insufficiency. Stockings Past Medical History Past Medical History: Asthma, Heart Failure, CVA/TIA, Deep Vein Thrombosis (DVT), GERD/Reflux, Hypertension, Memory Impairment, Musculoskeletal Disorder, Neurologic Disorder, Osteoarthritis (OA) Additional Past Medical History / Comment(s): Ulcerative colitis, diverticulitis, parkinson's disease, CVA which pt was unaware of having-showed on cat scan, several DVTs bilateral legs and pt states since she has had intermittent bilateral ankle edema, thrombophlebitis, PE-pt cannot recall l aterallity, generalized arthritis, urinary leakage, UTIs, shingles x 2 History of Any Multi-Drug Resistant Organisms: ESBL Date of last positivie culture/infection: 09/12/20 MDRO Source:: URINE ESBL Past Surgical History: Appendectomy, Cholecystectomy, Hysterectomy, Orthopedic Surgery, Tubal Ligation Additional Past Surgical History / Comment(s): L shoulder injury with surgery to repair, removals of DVTs bilateral legs, cataract removal/lens implants, colonoscopies, hemorrohoids surgery Past Anesthesia/Blood Transfusion Reactions: Postoperative Nausea & Vomiting (PONV) Additional Past Anesthesia/Blood Transfusion Reaction / Comment(s): Pt received blood with hysterectomy without reaction. Past Psychological History: Anxiety Smoking Status: Never smoker Past Alcohol Use History: None Reported Past Drug Use History: None Reported - Past Family History Father Family Medical History: Asthma, Cancer, COPD Additional Family Medical History / Comment(s): Gallbladder cancer Mother Family Medical History: Myocardial Infarction ([place]) Additional Family Medical History / Comment(s): Mother of a [place] at the age of 48 yrs. Sister(s) Additional Family Medical History / Comment(s): Sister of a blood clot at age 38 yrs-pt cannot recall specifics. Medications and Allergies Home Medications Medication Instructions Recorded Confirmed Type Omeprazole [PriLOSEC] 20 mg PO DAILY@0600 01/11/19 10/19/20 History bisacodyL [Dulcolax] 5 mg PO DAILY@0900 02/19/19 10/19/20 History Carbidopa-Levodopa 25-100 mg 1 tab PO QID@05,,,07/30/19 10/19/20 History [Sinemet 25-100 mg] Acetaminophen Tab [Tylenol] 650 mg PO Q4H PRN #1 tablet 08/23/19 10/19/20 Rx Carbidopa/Levodopa [Sinemet CR 1 tab PO HS@2100 10/15/19 10/19/20 History 50-200 mg] Lisinopril [Zestril] 10 mg PO DAILY@0900 10/15/19 10/19/20 History Melatonin 10 mg PO HS 10/15/19 10/19/20 History Mirabegron [Myrbetriq] 25 mg PO HS 10/15/19 10/19/20 History Warfarin [Coumadin] 1 mg PO MOTH@1700 10/15/19 10/19/20 History Metoprolol Tartrate [Lopressor] 50 mg PO DAILY tab 10/19/19 10/19/20 Rx amLODIPine [Norvasc] 5 mg PO DAILY tab 10/19/19 10/19/20 Rx Warfarin [Coumadin] 2 mg PO SUTUWEFRSA@1700 02/24/20 10/19/20 History traMADol HCL [Ultram] 50 mg PO Q8H PRN #9 tab 02/28/20 10/19/20 Rx Atorvastatin [Lipitor] 40 mg PO HS 10/19/20 10/19/20 History Cholecalciferol [Vitamin D3 (25 50 mcg PO DAILY 10/19/20 10/19/20 History Mcg = 1000 Iu)] Yulissa-Lanta 10 ml PO TID PRN 10/19/20 10/19/20 History Nitroglycerin Sl Tabs [Nitrostat] 0.4 mg SUBLINGUAL Q5M PRN 10/19/20 10/19/20 History Polyethylene Glycol 3350 [Miralax] 17 gm PO BID 10/19/20 10/19/20 History Allergies Allergy/AdvReac Type Severity Reaction Status Date / Time Influenza Virus Vaccines Allergy Swelling Verified 10/19/20 13:19 Penicillins Allergy Anaphylaxis Verified 10/19/20 13:19 Iodinated Contrast Media AdvReac Chest Pain Verified 10/19/20 13:19 [Iodinated Contrast- Oral and IV Dye] Physical Exam Vitals: Vital Signs Temp Pulse Resp BP Pulse Ox 10/19/20 16:45 16 144/77 10/19/20 12:36 98 F 55 L 16 136/67 96 Intake and Output 10/19/20 10/19/20 10/19/20 06:59 14:59 22:59 Other: Weight 70.307 kg Results CBC & Chem 7: 10/19/20 13:17 10/19/20 13:17 Labs: Abnormal Lab Results - Last 24 Hours (Table) 10/19/20 10/19/20 10/19/20 Range/Units 13:17 13:17 13:17 PT 24.4 H (9.0-12.0) sec INR 2.5 H (<1.2) BUN 21 H (7-17) mg/dL Urine Appearance Cloudy H (Clear) Urine Protein Trace H (Negative) Urine Nitrite Positive H (Negative) Ur Leukocyte Esterase Large H (Negative) Urine WBC 56 H (0-5) /hpf Triple Phos Crystals Few H (None) /hpf Amorphous Sediment Rare H (None) /hpf Urine Bacteria Many H (None) /hpf Hyaline Casts 5 H (0-2) /lpf Urine Mucus Occasional H (None) /hpf
[2020-10-19] MEDS: CARBIDOPA-LEVODOPA 25-100 MG 1 EACH TAB PO SCH (22:26)
[2020-10-19] MEDS: ATORVASTATIN 40 MG TAB PO SCH (22:26)
[2020-10-19] MEDS: polyethylene glycoL 3350 17 GM POWD.PACK PO SCH (22:26)
[2020-10-19] MEDS: MELATONIN 5 MG TABLET PO SCH (22:26)
[2020-10-19] MEDS: ASPIRIN 81 MG PO SCH (22:26)
[2020-10-19] MEDS: NON FORMULARY DRUG (Mirabegron [Myrbetriq] 25 MG Tab.Er.24h) PO SCH (22:26)
[2020-10-20] MEDS: traMADol 50 MG TAB PO PRN ×3 (00:33→23:21)
[2020-10-20] MEDS: SODIUM CHLORIDE 0.9% 1,000 ML IV SCH ×2 (04:58→17:30)
[2020-10-20] MEDS: CARBIDOPA-LEVODOPA 25-100 MG 1 EACH TAB PO SCH ×4 (04:59→17:29)
[2020-10-20] MEDS: PANTOPRAZOLE 40 MG TABLET PO SCH (04:59)
[2020-10-20 08:24] LABS: INR 2.5 (<1.2)
[2020-10-20] MEDS: amLODIPine 5 MG TAB PO SCH (08:46)
[2020-10-20] MEDS: CHOLECALCIFEROL 25 MCG (1000 IU) TABLET PO SCH (08:46)
[2020-10-20] MEDS: ASPIRIN 81 MG PO SCH (08:46)
[2020-10-20] MEDS: lisinopriL 10 MG TAB PO SCH (08:46)
[2020-10-20] MEDS: bisacodyL 5 MG TABLET.DR PO SCH (08:47)
[2020-10-20] MEDS ORDERED: METOPROLOL TARTRATE 50 MG TAB PO SCH (09:00)
[2020-10-20] MEDS: polyethylene glycoL 3350 17 GM POWD.PACK PO SCH ×2 (11:01→20:34)
--- NOTE | 2020-10-20 12:51 | P.CRDCN ---
History of Present Illness History of present illness: HISTORY OF PRESENTING ILLNESS This is a pleasant 80-year-old female past medical history significant for proximal atrial fibrillation on Coumadin, Parkinson's disease, hypertension, dyslipidemia, Chronic DVT. She follows in the office with Dr. Wong, last seen in the office on 03/10/2020. We have been asked to see in consultation for chest pain. Patient is seen and examined at bedside in no apparent distress patient states that she has been having left sided chest pain and left-sided shoulder and arm pain. The pain started a couple days ago. Patient is unable to give me specifics on the pain, she continues to say yes to every question that I am asking. Patient states that she is having shortness of breath but appears comfortable. Atrial fibrillation was recently diagnosed October 2019, prior to discharge patient converted to sinus mechanism. Patient presented to [facility] 02/2020 with chest pain, a Lexiscan stress test was completed in 02/2020 shows normal. Most recent echo 10/2019 which revealed a normal EF, mild TR, mild MR. Patients left arm and shoulder pain is with movement. Chest pain is reproducible on exam. Laboratory data reviewed, Tropoonin negative x 3, INR 2.5, BNP 147, sodium 139, potassium 4.3, creatinine 0.61, WBC 5.8, hemoglobin 13.4, platelets 220 Vital signs blood pressure 124/67, heart rate 50s, afebrile, sPo2 96 on room air. Current home cardiac medications include atorvastatin 40 mg nightly, lisinopril 10 mg daily, metoprolol titrate 50 mg daily, amlodipine 5 mg daily, Coumadin 2 mg (Friday, Friday, Friday, Friday, Friday), warfarin 1 mg (Friday and ) DIAGNOSTICS EKG reveals sinus bradycardia, HR 54, slow R wave progression, non specific changes . Prior EKG normal sinus rhythm, HR 62, slow R wave progression, non specific changes. Telemetry tracings indicate sinus bradycardia Chest xray no acute cardio pulmonary process. REVIEW OF SYSTEMS At the time of my exam: CONSTITUTIONAL: Denies fever or chills. CARDIOVASCULAR: Denies chest pain, shortness of breath, orthopnea, PND or palpitations. RESPIRATORY: Denies cough. GASTROINTESTINAL: Denies abdominal pain, diarrhea, constipation, nausea or vomiting. MUSCULOSKELETAL: Denies myalgias. NEUROLOGIC: Denies numbness, tingling, headacbe or weakness. ENDOCRINE: Denies fatigue, weight change, polydipsia or polyurina. GENITOURINARY: Denies burning, hematuria or urgency with micturation. HEMATOLOGIC: Denies history of anemia or bleeding. PHYSICAL EXAMINATION CONSTITUTIONAL: No apparent distress. HEENT: Head is normocephalic. Pupils are equal, round. Sclerae anicteric. Mucous membranes of the mouth are moist. No JVD. No carotid bruit. CHEST EXAMINATION: Lungs are clear to auscultation. No chest wall tenderness is noted on palpation or with deep breathing. HEART EXAMINATION: Regular rate and rhythm. S1, S2 heard. No murmurs, gallops or rub. ABDOMEN: Soft, nontender. Positive bowel sounds. EXTREMITIES: 2+ peripheral pulses, no lower extremity edema and no calf tenderness. NEUROLOGIC EXAMINATION: Patient is awake, alert and oriented x3. ASSESSMENT -Chest pain, atypical- acute coronary event ruled out. Troponin negative x 3. -History of chronic DVT -Paroxysmal atrial fibrillation -History of hypertension -Parkinson's disease PLAN -Will obtain 2D echo, if no acute findings, patient can be discharged from cardiology perspective and follow up outpatient. -Continue home cardiac medications. Nurse Practitioner note has been reviewed, I agree with a documented findings and plan of care. Patient was seen and examined. Past Medical History Past Medical History: Asthma, Heart Failure, CVA/TIA, Deep Vein Thrombosis (DVT), GERD/Reflux, Hypertension, Memory Impairment, Musculoskeletal Disorder, Neurologic Disorder, Osteoarthritis (OA) Additional Past Medical History / Comment(s): Ulcerative colitis, diverticulitis, parkinson's disease, CVA which pt was unaware of having-showed on cat scan, several DVTs bilateral legs and pt states since she has had intermi ttent bilateral ankle edema, thrombophlebitis, PE-pt cannot recall laterallity, generalized arthritis, urinary leakage, UTIs, shingles x 2 History of Any Multi-Drug Resistant Organisms: ESBL Date of last positivie culture/infection: 09/12/20 MDRO Source:: URINE ESBL Past Surgical History: Appendectomy, Cholecystectomy, Hysterectomy, Orthopedic Surgery, Tubal Ligation Additional Past Surgical History / Comment(s): L shoulder injury with surgery to repair, removals of DVTs bilateral legs, cataract removal/lens implants, colonoscopies, hemorrohoids surgery Past Anesthesia/Blood Transfusion Reactions: Postoperative Nausea & Vomiting (PONV) Additional Past Anesthesia/Blood Transfusion Reaction / Comment(s): Pt received blood with hysterectomy without reaction. Past Psychological History: Anxiety Smoking Status: Never smoker Past Alcohol Use History: None Reported Past Drug Use History: None Reported - Past Family History Father Family Medical History: Asthma, Cancer, COPD Additional Family Medical History / Comment(s): Gallbladder cancer Mother Family Medical History: Myocardial Infarction ([place]) Additional Family Medical History / Comment(s): Mother of a [place] at the age of 48 yrs. Sister(s) Additional Family Medical History / Comment(s): Sister of a blood clot at age 38 yrs-pt cannot recall specifics. Medications and Allergies Home Medications Medication Instructions Recorded Confirmed Type RX: Omeprazole [PriLOSEC] 20 mg PO DAILY@0600 01/11/19 10/19/20 History RX: bisacodyL [Dulcolax] 5 mg PO DAILY@0900 02/19/19 10/19/20 History RX: Carbidopa-Levodopa 25-100 mg 1 tab PO QID@05,09,,07/30/19 10/19/20 History [Sinemet 25-100 mg] RX: Acetaminophen Tab [Tylenol] 650 mg PO Q4H PRN #1 tablet 08/23/19 10/19/20 Rx RX: Carbidopa/Levodopa [Sinemet CR 1 tab PO HS@2100 10/15/19 10/19/20 History 50-200 mg] RX: Lisinopril [Zestril] 10 mg PO DAILY@0900 10/15/19 10/19/20 History RX: Melatonin 10 mg PO HS 10/15/19 10/19/20 History RX: Mirabegron [Myrbetriq] 25 mg PO HS 10/15/19 10/19/20 History RX: Warfarin [Coumadin] 1 mg PO MOTH@0 10/15/19 10/19/20 History RX: Metoprolol Tartrate [Lopressor] 50 mg PO DAILY tab 10/19/19 10/19/20 Rx RX: amLODIPine [Norvasc] 5 mg PO DAILY tab 10/19/19 10/19/20 Rx RX: Warfarin [Coumadin] 2 mg PO SUTUWEFRSA@1700 02/24/20 10/19/20 History RX: traMADol HCL [Ultram] 50 mg PO Q8H PRN #9 tab 02/28/20 10/19/20 Rx Cholecalciferol [Vitamin D3 (25 50 mcg PO DAILY 10/19/20 10/19/20 History Mcg = 1000 Iu)] Yulissa-Lanta 10 ml PO TID PRN 10/19/20 10/19/20 History Nitroglycerin Sl Tabs [Nitrostat] 0.4 mg SUBLINGUAL Q5M PRN 10/19/20 10/19/20 History Polyethylene Glycol 3350 [Miralax] 17 gm PO BID 10/19/20 10/19/20 History RX: Atorvastatin [Lipitor] 40 mg PO HS 10/19/20 10/19/20 History Allergies Allergy/AdvReac Type Severity Reaction Status Date / Time Influenza Virus Vaccines Allergy Swelling Verified 10/19/20 13:19 Penicillins Allergy Anaphylaxis Verified 10/19/20 13:19 Iodinated Contrast Media AdvReac Chest Pain Verified 10/19/20 13:19 [Iodinated Contrast- Oral and IV Dye] Physical Exam Vitals: Vital Signs Temp Pulse Pulse Resp BP BP Pulse Ox 10/20/20 04:47 97.9 F 57 L 18 162/85 93 L 10/20/20 04:15 58 L 16 118/56 95 10/20/20 00:40 56 L 16 122/77 95 10/19/20 20:54 66 18 143/77 93 L 10/19/20 16:45 16 144/77 10/19/20 12:36 98 F 55 L 16 136/67 96 Intake and Output 10/19/20 10/20/20 10/20/20 22:59 06:59 14:59 Intake Total 190 Balance 190 Intake: IV 160 Sodium Chloride 0.9% 1, 160 000 ml @ 80 mls/hr IV . [id number] [facility] Rx#:[id number] Oral 30 Results 10/19/20 13:17 10/19/20 13:17 Cardiac Enzymes 10/19/20 10/19/20 10/19/20 Range/Units 13:17 13:17 16:08 AST 20 (14-36) U/L Troponin I <0.012 <0.012 (0.000-0.034) ng/mL 10/19/20 Range/Units 19:28 AST (14-36) U/L Troponin I <0.012 (0.000-0.034) ng/mL Coagulation 10/19/20 10/20/20 Range/Units 13:17 07:08 PT 24.4 H 24.0 H (9.0-12.0) sec APTT 28.4 (22.0-30.0) sec CBC 10/19/20 Range/Units 13:17 WBC 5.8 (3.8-10.6) k/uL RBC 4.55 (3.80-5.40) m/uL Hgb 13.4 (11.4-16.0) gm/dL Hct 40.1 (34.0-46.0) % Plt Count 220 (150-450) k/uL Comprehensive Metabolic Panel 10/19/20 Range/Units 13:17 Sodium 139 (137-145) mmol/L Potassium 4.3 (3.5-5.1) mmol/L Chloride 104 (98-107) mmol/L Carbon Dioxide 28 (22-30) mmol/L BUN 21 H (7-17) mg/dL Creatinine 0.61 (0.52-1.04) mg/dL Glucose 87 (74-99) mg/dL Calcium 9.0 (8.4-10.2) mg/dL AST 20 (14-36) U/L ALT <6 (4-34) U/L Alkaline Phosphatase 57 (38-126) U/L Total Protein 6.4 (6.3-8.2) g/dL Albumin 3.8 (3.5-5.0) g/dL Current Medications Generic Name Dose Route Start Last Admin Trade Name Freq PRN Reason Stop Dose Admin Acetaminophen 650 mg 10/19/20 14:57 Acetaminophen Tab 325 Mg Tab PO Q4H PRN Pain Al Hydroxide/Mg Hydroxide 30 ml 10/19/20 14:57 10/20/20 04:12 Mag Hydrox/Al Hydrox/Simeth 30 Ml Cup PO 30 ml TID PRN Administration Indigestion Amlodipine Besylate 5 mg 10/20/20 09:00 10/20/20 08:46 Amlodipine 5 Mg Tab PO 5 mg DAILY JOSETTE Administration Aspirin 81 mg 10/19/20 19:45 10/20/20 08:46 Aspirin 81 Mg PO 81 mg DAILY JOSETTE Administration Atorvastatin Calcium 40 mg 10/19/20 21:00 10/19/20 22:26 Atorvastatin 40 Mg Tab PO 40 mg HS [facility] Administration Bisacodyl 5 mg 10/20/20 09:00 10/20/20 08:47 Bisacodyl 5 Mg Tablet.Dr PO 5 mg DAILY@0900 JOSETTE Administration Carbidopa/Levodopa 1 each 10/19/20 21:00 10/19/20 18:24 Carbidopa-Levodopa Er 50-200mg 1 Each Tablet.Er PO 1 each HS@2100 JOSETTE Administration Carbidopa/Levodopa 1 each 10/19/20 17:00 10/20/20 08:47 Carbidopa-Levodopa 25-100 Mg 1 Each Tab PO 1 each QID@05,,, JOSETTE Administration Cholecalciferol 50 mcg 10/20/20 09:00 10/20/20 08:46 Cholecalciferol 25 Mcg (1000 Iu) Tablet PO 50 mcg DAILY JOSETTE Administration Sodium Chloride 1,000 mls @ 80 mls/hr 10/19/20 15:00 10/20/20 04:58 Saline 0.9% IV 80 mls/hr .[id number] JOSETTE Administration Lisinopril 10 mg 10/20/20 09:00 10/20/20 08:46 Lisinopril 10 Mg Tab PO 10 mg DAILY@0900 JOSETTE Administration Melatonin 10 mg 10/19/20 21:00 10/19/20 22:26 Melatonin 5 Mg Tablet PO 10 mg HS [facility] Administration Metoprolol Tartrate 50 mg 10/20/20 09:00 Metoprolol Tartrate 50 Mg Tab PO DAILY [facility] Miscellaneous Information 0 each 10/19/20 15:00 Warfarin Per Pharmacy MISCELLANE DIRECTED PRN PER PROTOCOL Naloxone HCl 0.2 mg 10/19/20 14:52 Naloxone 0.4 Mg/Ml 1 Ml Vial IV Q2M PRN Opioid Reversal Nitroglycerin 0.4 mg 10/19/20 14:57 Nitroglycerin Sl Tabs 0.4 Mg Tab SUBLINGUAL Q5M PRN Chest Pain Non-Formulary Medication 25 mg 10/19/20 21:00 10/19/20 22:26 Mirabegron [Myrbetriq] PO Not Given HS [facility] Pantoprazole Sodium 40 mg 10/20/20 06:00 10/20/20 04:59 Pantoprazole 40 Mg Tablet PO 40 mg DAILY@0600 [facility] Administration Polyethylene Glycol 17 gm 10/19/20 21:00 10/19/20 22:26 Polyethylene Glycol 3350 17 Gm Powd.Pack PO Not Given BID [facility] Tramadol HCl 50 mg 10/19/20 14:57 10/20/20 00:33 Tramadol 50 Mg Tab PO 50 mg Q8H PRN Administration Pain Warfarin Sodium 2 mg 10/20/20 17:00 Warfarin 2 Mg Tab PO SUTUWEFRSA@1700 [facility] Protocol Warfarin Sodium 1 mg 10/19/20 17:00 10/19/20 18:24 Warfarin 1 Mg Tab PO 1 mg MOTH@1700 [facility] Administration Protocol Intake and Output 10/19/20 10/20/20 10/20/20 22:59 06:59 14:59 Intake Total 190 Balance 190 Intake: IV 160 Sodium Chloride 0.9% 1, 160 000 ml @ 80 mls/hr IV . [id number] [facility] Rx#:[id number] Oral 30 10/19/20 13:17 10/19/20 13:17
--- NOTE | 2020-10-20 13:03 | ECHOF ---
Referral Reason:2-D echo MEASUREMENTS -------- HEIGHT: 160.0 cm WEIGHT: 70.3 kg BP: 162/85 RVIDd: 3.1 cm (< 3.3) IVSd: 0.9 cm (0.6 - 1.1) LVIDd: 4.6 cm (3.9 - 5.3) LVPWd: 1.5 cm (0.6 - 1.1) IVSs: 1.6 cm LVIDs: 2.9 cm LVPWs: 1.7 cm LAESV Index (A-L): 36.46 ml/m Ao Diam: 2.7 cm (2.0 - 3.7) AV Cusp: 1.4 cm (1.5 - 2.6) MV E Faisal: 0.89 m/s MV DecT: 283 ms MV A Faisal: 1.18 m/s MV E/A Ratio: 0.75 AR PHT: 703 ms RAP: 5.00 mmHg RVSP: 37.45 mmHg FINDINGS -------- Sinus rhythm. This was a technically adequate study. The left ventricular size is normal. Left ventricular wall thickness is normal. Overall left vent ricular systolic function is normal with, an EF between 55 - 60 %. The right ventricle is normal in size. LA is moderately dilated 34-39 ml/m2 The right atrium was not well visualized. Interatrial and interventricular septum intact. There is mild aortic regurgitation. There is no evidence of aortic stenosis. [id number] mitral regurgitation is present. Mild tricuspid regurgitation present. There is mild pulmonary hypertension. The right ventricular systolic pressure, as measured by Doppler, is 37.45mmHg. There is no pulmonic regurgitation present. The aortic root size is normal. IVC Not well visulized. There is no pericardial effusion. CONCLUSIONS -------- 1. The left ventricular size is normal. 2. Left ventricular wall thickness is normal. 3. Overall left ventricular systolic function is normal with, an EF between 55 - 60 %. 4. LA is moderately dilated 34-39 ml/m2 5. There is mild aortic regurgitation. 6. [id number] mitral regurgitation is present. 7. Mild tricuspid regurgitation present. 8. There is mild pulmonary hypertension. 9. The right ventricular systolic pressure, as measured by Doppler, is 37.45mmHg. SENIOR STATISTICAL PROGRAMMER: Roseann Dumont RDCS
[2020-10-20 13:52] VITALS: BMI 27.4
[2020-10-20] MEDS ORDERED: WARFARIN 2 MG TAB PO SCH (17:00)
[2020-10-20] MEDS: ACETAMINOPHEN TAB 325 MG TAB PO PRN (17:32)
[2020-10-20] MEDS: MELATONIN 5 MG TABLET PO SCH (20:34)
[2020-10-20] MEDS: CARBIDOPA-LEVODOPA ER 50-200MG 1 EACH TABLET.ER PO SCH (20:34)
[2020-10-20] MEDS: ATORVASTATIN 40 MG TAB PO SCH (20:34)
[2020-10-20] MEDS: NON FORMULARY DRUG (Mirabegron [Myrbetriq] 25 MG Tab.Er.24h) PO SCH (20:41)
--- NOTE | 2020-10-20 22:51 | P.PN ---
Progress Note - Text Progress Note Date: 10/20/20 Chief Complaint: Chest pain History of presenting complaint: This is a very pleasant 78-year-old patient of Dr. Benitez. Lives at the [facility]. Uses a wheelchair.. Chronic stable medical conditions include asthma hypertension osteoarthritis, diverticulosis, Parkinson's disease,chronic DVT and chronically on Coumadin. CHF with EF of 55-60% patient has chronic lower extremities swelling from venous insufficiency. Patient's had multiple UTIs. Patient now presents with chest pain central for about 2 days. That has been some waxing and waning. Some shortness of breath. Does have some episodes of perspiration. Does feel weak and tired.. radiate down the left arm. Patient did undergo a nuclear stress test in February 2020. That was negative. Appetite is decreased. No fever no chills. No cough Today-having some chest pain. Feeling much better. Laying in bed. Seen by cardiology Review of systems: Was done for constitutional, cardiovascular, GI, pulmonary. relevant finding as above Active Medications Acetaminophen (Acetaminophen Tab 325 Mg Tab) 650 mg PO Q4H PRN PRN Reason: Pain Last Admin: 10/20/20 17:32 Dose: 650 mg Documented by: Al Hydroxide/Mg Hydroxide (Mag Hydrox/Al Hydrox/Simeth 30 Ml Cup) 30 ml PO TID PRN PRN Reason: Indigestion Last Admin: 10/20/20 04:12 Dose: 30 ml Documented by: Amlodipine Besylate (Amlodipine 5 Mg Tab) 5 mg PO DAILY [facility] Last Admin: 10/20/20 08:46 Dose: 5 mg Documented by: Atorvastatin Calcium (Atorvastatin 40 Mg Tab) 40 mg PO HS [facility] Last Admin: 10/20/20 20:34 Dose: 40 mg Documented by: Bisacodyl (Bisacodyl 5 Mg Tablet.Dr) 5 mg PO DAILY@0900 [facility] Last Admin: 10/20/20 08:47 Dose: 5 mg Documented by: Carbidopa/Levodopa (Carbidopa-Levodopa Er 50-200mg 1 Each Tablet.Er) 1 each PO HS@2100 [facility] Last Admin: 10/20/20 20:34 Dose: 1 each Documented by: Carbidopa/Levodopa (Carbidopa-Levodopa 25-100 Mg 1 Each Tab) 1 each PO QID@05,09,12,17 [facility] Last Admin: 10/20/20 17:29 Dose: 1 each Documented by: Cholecalciferol (Cholecalciferol 25 Mcg (1000 Iu) Tablet) 50 mcg PO DAILY [facility] Last Admin: 10/20/20 08:46 Dose: 50 mcg Documented by: Sodium Chloride (Saline 0.9%) 1,000 mls @ 80 mls/hr IV .[id number] [facility] Last Admin: 10/20/20 17:30 Dose: 80 mls/hr Documented by: Lisinopril (Lisinopril 10 Mg Tab) 10 mg PO DAILY@0900 [facility] Last Admin: 10/20/20 08:46 Dose: 10 mg Documented by: Melatonin (Melatonin 5 Mg Tablet) 10 mg PO [facility] Last Admin: 10/20/20 20:34 Dose: 10 mg Documented by: Metoprolol Tartrate (Metoprolol Tartrate 50 Mg Tab) 50 mg PO DAILY [facility] Last Admin: 10/20/20 11:01 Dose: 50 mg Documented by: Miscellaneous Information (Warfarin Per Pharmacy) 0 each MISCELLANE DIRECTED PRN PRN Reason: PER PROTOCOL Naloxone HCl (Naloxone 0.4 Mg/Ml 1 Ml Vial) 0.2 mg IV Q2M PRN PRN Reason: Opioid Reversal Nitroglycerin (Nitroglycerin Sl Tabs 0.4 Mg Tab) 0.4 mg SUBLINGUAL Q5M PRN PRN Reason: Chest Pain Non-Formulary Medication (Mirabegron [Myrbetriq]) 25 mg PO [facility] Last Admin: 10/20/20 20:41 Dose: Not Given Documented by: Pantoprazole Sodium (Pantoprazole 40 Mg Tablet) 40 mg PO DAILY@0600 [facility] Last Admin: 10/20/20 04:59 Dose: 40 mg Documented by: Polyethylene Glycol (Polyethylene Glycol 3350 17 Gm Powd.Pack) 17 gm PO BID [facility] Last Admin: 10/20/20 20:34 Dose: Not Given Documented by: Tramadol HCl (Tramadol 50 Mg Tab) 50 mg PO Q8H PRN PRN Reason: Pain Last Admin: 10/20/20 14:39 Dose: 50 mg Documented by: Warfarin Sodium (Warfarin 2 Mg Tab) 2 mg PO SUTUWEFRSA@1700 [facility]; Protocol Last Admin: 10/20/20 17:29 Dose: 2 mg Documented by: Warfarin Sodium (Warfarin 1 Mg Tab) 1 mg PO MOTH@1700 [facility]; Protocol Last Admin: 10/19/20 18:24 Dose: 1 mg Documented by: Past medical history to include: Asthma, hypertension, osteoarthritis, diverticulosis, Parkinson's disease, chronic DVT, CHF EF 55-60%, chronic lower extremity swelling from venous insufficiency, multiple UTIs Social history: At [facility], uses a wheelchair No smoking or smoking . Physical examination: VITAL SIGNS: 97.5, 59, 18, 1 47 x 71, 97% on room air GENERAL: Laying in bed, awake, comfortable EYES: Pupils equal. Conjunctiva normal. HEENT: External appearance of nose and ears normal, oral cavity grossly normal. NECK: JVD not raised; masses not palpable. HEART: First and second heart sounds are normal; edema present. LUNGS: Respiratory rate normal, decreased breath sounds ABDOMEN: Soft, no tenderness, no guarding or rigidity, liver spleen not palpable, no masses palpable. PSYCH: Alert and oriented x3; mood and affect normal. MUSCULOSKELETAL: Evidence of OA especially in the hands Investigations reviewed in the clinical context: 2-D echocardiogram: EF 55-60% [id number] MR. WBC 5.8 hemoglobin 13.4 platelets 220 INR 2.5 potassium 4.3 creatinine 0.61 Troponin I 2 negative UA positive for nitrites, leukoesterase, WBC Coronavirus [PCR]-not detected EKG tracing personally reviewed by me-normal sinus rhythm Chest x-ray film personally reviewed by me-lung goldman clear February 2020: Nuclear stress tests. Negative for ischemia Assessment and plan: -Anterior chest fall. With some cardiac sounding features. Last stress test in February 2020 was negative. troponins are negative. Cardiology consulted. -Chronic recurrent UTI. Currently no urinary symptoms. No fever no urinary symptoms. -Chronic congestive heart failure from diastolic dysfunction EF 55-60%, follow clinically -Chronic DVT for which patient chronically on Coumadin, monitor INR -GERD, use Prilosec -Essential hypertension, on Lopressor and Norvasc -Mild cognitive impairment from underlying Alzheimer's dementia, follow clini essence -Primary osteoarthritis, use pain medications as needed -Idiopathic Parkinson's disease, continue Sinemet -Chronic urinary stress incontinence -Chronic medical debility. Uses a wheelchair -Chronic lower extremity swelling from DVT causing venous insufficiency. Stockings Patient is having some chest pain this afternoon. We'll watch overnight. Add Imdur ER 15 mg daily
[2020-10-21] MEDS: CARBIDOPA-LEVODOPA 25-100 MG 1 EACH TAB PO SCH ×3 (04:23→12:46)
[2020-10-21] MEDS: ACETAMINOPHEN TAB 325 MG TAB PO PRN ×2 (04:31→09:52)
[2020-10-21] MEDS: PANTOPRAZOLE 40 MG TABLET PO SCH (04:31)
[2020-10-21] MEDS: SODIUM CHLORIDE 0.9% 1,000 ML IV SCH (05:30)
[2020-10-21] MEDS ORDERED: ISOSORBIDE MONONITRATE ER 15 MG TAB PO SCH (09:00)
[2020-10-21] MEDS ORDERED: METOPROLOL TARTRATE 25 MG TAB PO SCH (09:00)
[2020-10-21] MEDS: bisacodyL 5 MG TABLET.DR PO SCH (09:44)
[2020-10-21] MEDS: amLODIPine 5 MG TAB PO SCH (09:44)
[2020-10-21] MEDS: CHOLECALCIFEROL 25 MCG (1000 IU) TABLET PO SCH (09:44)
[2020-10-21] MEDS: lisinopriL 10 MG TAB PO SCH (09:44)
[2020-10-21] MEDS: polyethylene glycoL 3350 17 GM POWD.PACK PO SCH (09:45)
[2020-10-21 10:18] LABS: INR 2.05 (0.90-1.11); Prothrombin Time 21.3 sec (9.9-11.9)
--- NOTE | 2020-10-21 14:25 | P.DS ---
Providers Date of admission: 10/19/20 15:32 Expected date of discharge: 10/21/20 Attending physician: Tim Levy Consults: 10/20/20 08:26 Consult Physician Routine Consulting Provider: Jacques Gamez Consult Reason/Comments: CP Do you want consulting provider notified?: Yes Primary care physician: [facility] Course: Chief Complaint: Chest pain History of presenting complaint: This is a very pleasant 78-year-old patient of Dr. Benitez. Lives at the [facility]. Uses a wheelchair.. Chronic stable medical conditions include asthma hypertension osteoarthritis, diverticulosis, Parkinson's disease,chronic DVT and chronically on Coumadin. CHF with EF of 55-60% patient has chronic lower extremities swelling from venous insufficiency. Patient's had multiple UTIs. Patient now presents with chest pain central for about 2 days. That has been some waxing and waning. Some shortness of breath. Does have some episodes of perspiration. Does feel weak and tired.. radiate down the left arm. Patient did undergo a nuclear stress test in February 2020. That was negative. Appetite is decreased. No fever no chills. No cough. Imdur was added. Today-doing well. No further cardiac symptoms. Consultation: Dr. Gamez from cardiology Past medical history to include: Asthma, hypertension, osteoarthritis, diverticulosis, Parkinson's disease, chronic DVT, CHF EF 55-60%, chronic lower extremity swelling from venous insufficiency, multiple UTIs Social history: At [facility], uses a wheelchair No smoking or smoking . Physical examination: VITAL SIGNS: 97.4, 57, 19, 133 x 51, 95% room air GENERAL: Laying in bed, awake, comfortable EYES: Pupils equal. Conjunctiva normal. HEENT: External appearance of nose and ears normal, oral cavity grossly normal. NECK: JVD not raised; masses not palpable. HEART: First and second heart sounds are normal; edema present. LUNGS: Respiratory rate normal, decreased breath sounds ABDOMEN: Soft, no tenderness, no guarding or rigidity, liver spleen not palpable, no masses palpable. PSYCH: Alert and oriented x3; mood and affect normal. MUSCULOSKELETAL: Evidence of OA especially in the hands Investigations reviewed in the clinical context: 2-D echocardiogram: EF 55-60% [id number] MR. WBC 5.8 hemoglobin 13.4 platelets 220 INR 2.5 potassium 4.3 creatinine 0.61 Troponin I 2 negative UA positive for nitrites, leukoesterase, WBC Coronavirus [PCR]-not detected EKG tracing personally reviewed by me-normal sinus rhythm Chest x-ray film personally reviewed by me-lung goldman clear February 2020: Nuclear stress tests. Negative for ischemia Assessment and plan: -Anterior chest fall. With some cardiac sounding features. Last stress test in February 2020 was negative. troponins are negative. Possible angina. Responded to nitrates -Chronic recurrent UTI. Currently no urinary symptoms. No fever no urinary symptoms. 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 Uses a wheelchair -Chronic lower extremity swelling from DVT causing venous insufficiency. Stockings Disposition: [facility] Patient Condition at Discharge: Fair Plan - Discharge Summary New Discharge Prescriptions: New Isosorbide Mononitrate ER [Imdur] 15 mg PO DAILY dose Continue Omeprazole [PriLOSEC] 20 mg PO DAILY@0600 bisacodyL [Dulcolax] 5 mg PO DAILY@0900 Carbidopa-Levodopa 25-100 mg [Sinemet 25-100 mg] 1 tab PO QID@05,09,12,17 Acetaminophen Tab [Tylenol] 650 mg PO Q4H PRN #1 tablet PRN Reason: Pain Carbidopa/Levodopa [Sinemet CR 50-200 mg] 1 tab PO HS@2100 Lisinopril [Zestril] 10 mg PO DAILY@0900 Melatonin 10 mg PO HS Mirabegron [Myrbetriq] 25 mg PO HS Warfarin [Coumadin] 1 mg PO MOTH@1700 amLODIPine [Norvasc] 5 mg PO DAILY tab Warfarin [Coumadin] 2 mg PO SUTUWEFRSA@1700 Nitroglycerin Sl Tabs [Nitrostat] 0.4 mg SUBLINGUAL Q5M PRN PRN Reason: Chest Pain Yulissa-Lanta 10 ml PO TID PRN PRN Reason: Indigestion Polyethylene Glycol 3350 [Miralax] 17 gm PO BID Cholecalciferol [Vitamin D3 (25 Mcg = 1000 Iu)] 50 mcg PO DAILY Atorvastatin [Lipitor] 40 mg PO HS traMADol HCL [Ultram] 50 mg PO Q8H PRN #9 tab PRN Reason: Pain Changed Metoprolol Tartrate [Lopressor] 25 mg PO BID #0 tab Discharge Medication List Omeprazole [PriLOSEC] 20 mg PO DAILY@0600 01/11/19 [History] bisacodyL [Dulcolax] 5 mg PO DAILY@89902/19/19 [History] Carbidopa-Levodopa 25-100 mg [Sinemet 25-100 mg] 1 tab PO QID@05,,,07/30/19 [History] Acetaminophen Tab [Tylenol] 650 mg PO Q4H PRN #1 tablet 08/23/19 [Rx] Carbidopa/Levodopa [Sinemet CR 50-200 mg] 1 tab PO HS@2100 10/15/19 [History] Lisinopril [Zestril] 10 mg PO DAILY@0900 10/15/19 [History] Melatonin 10 mg PO HS 10/15/19 [History] Mirabegron [Myrbetriq] 25 mg PO HS 10/15/19 [History] Warfarin [Coumadin] 1 mg PO MOTH@17010/15/19 [History] amLODIPine [Norvasc] 5 mg PO DAILY tab 10/19/19 [Rx] Warfarin [Coumadin] 2 mg PO SUTUWEFRSA@1700 02/24/20 [History] Atorvastatin [Lipitor] 40 mg PO HS 10/19/20 [History] Cholecalciferol [Vitamin D3 (25 Mcg = 1000 Iu)] 50 mcg PO DAILY 10/19/20 [History] Yulissa-Lanta 10 ml PO TID PRN 10/19/20 [History] Nitroglycerin Sl Tabs [Nitrostat] 0.4 mg SUBLINGUAL Q5M PRN 10/19/20 [History] Polyethylene Glycol 3350 [Miralax] 17 gm PO BID 10/19/20 [History] Isosorbide Mononitrate ER [Imdur] 15 mg PO DAILY dose 10/21/20 [Rx] Metoprolol Tartrate [Lopressor] 25 mg PO BID #0 tab 10/21/20 [Rx] traMADol HCL [Ultram] 50 mg PO Q8H PRN #9 tab 10/21/20 [Rx] Follow up Appointment(s)/Referral(s): Lottie Wong MD [STAFF PHYSICIAN] - 2 Weeks Jesus Cooney MD [Primary Care Provider] - 1-2 days [facility], [NON-STAFF] - As Needed
[2020-10-21 15:03] VITALS: BP 101/53; PULSE 54; RESP 18; TEMP 97.9
== END 2020-10-21 15:28 ==
LOC: EC 12:09 → 6NMEDSUR 15:32
PROVIDERS: ADMIT Hospitalist; ATTEND Hospitalist
DX: R07.9 Chest pain, unspecified (principal); N39.0 Urinary tract infection, site not specified; I11.0 Hypertensive heart disease with heart failure; N39.3 Stress incontinence (female) (male); I87.2 Venous insufficiency (chronic) (peripheral); G20 Parkinson's disease; E86.0 Dehydration; G30.9 Alzheimer's disease, unspecified; M19.91 Primary osteoarthritis, unspecified site; F41.9 Anxiety disorder, unspecified; I82.503 Chronic embolism and thrombosis of unspecified deep veins of lower extremity, bilateral; I50.32 Chronic diastolic (congestive) heart failure; I48.0 Paroxysmal atrial fibrillation; E78.5 Hyperlipidemia, unspecified; K57.90 Diverticulosis of intestine, part unspecified, without perforation or abscess without bleeding; J45.909 Unspecified asthma, uncomplicated; K51.90 Ulcerative colitis, unspecified, without complications; K21.9 Gastro-esophageal reflux disease without esophagitis; F02.80 Dementia in other diseases classified elsewhere, unspecified severity, without behavioral disturbance, psychotic disturbance, mood disturbance, and anxiety; Z79.01 Long term (current) use of anticoagulants; Z79.899 Other long term (current) drug therapy; Z90.710 Acquired absence of both cervix and uterus; Z96.1 Presence of intraocular lens; Z86.73 Personal history of transient ischemic attack (TIA), and cerebral infarction without residual deficits; Z82.49 Family history of ischemic heart disease and other diseases of the circulatory system; Z80.0 Family history of malignant neoplasm of digestive organs; Z82.5 Family history of asthma and other chronic lower respiratory diseases; Z87.440 Personal history of urinary (tract) infections; Z20.822 Contact with and (suspected) exposure to COVID-19
CPT/HCPCS: 96361 ×4; 96376; 96374; 96375; 99285; 36415; 93005; 93306; 83880; 80053; 82550; 83735; 84484; 85025; 85610 ×3; 85730; 81001; 87086; 87077; 87186; 87635; 71046; G0378 ×3; J0696; J3010

== ENCOUNTER 2020-11-20 18:29 | Emergency (ER) | payer MEDICARE, OTHER ==
[2020-11-20 18:35] VITALS: TEMP 98.1
[2020-11-20] MEDS ORDERED: NITROGLYCERIN OINT 1 INCH/GM PACKET TOPICAL STA (19:07)
[2020-11-20] MEDS ORDERED: ASPIRIN 81 MG PO STA (19:07)
--- NOTE | 2020-11-20 19:09 | ED ---
General Adult HPI - General Source: patient, RN notes reviewed, old records reviewed Mode of arrival: EMS Limitations: no limitations <Keenan Barry - Last Filed: 11/20/20 20:55> <Eris Hardy - Last Filed: 11/20/20 23:59> - General Chief complaint: Chest Pain Stated complaint: chest pain Time Seen by Provider: 11/20/20 18:35 - History of Present Illness Initial comments: This is an 80-year-old female presents emergency Department with a past medical history significant for A. fib and an Coumadin, patient also has high blood pressure. Patient comes in today complaining that she started having chest pain about 3 hours ago it radiated down her left arm she felt short of breath and a mildly hot and mildly nauseated. Patient states she received 4 nitroglycerin but her pain continued anyhow. Patient denies any recent fever chills or cough. Patient denies any abdominal pain patient denies any vomiting or diarrhea. Patient denies any lightheadedness or dizziness. Patient denies any calf pain. (Keenan Barry) - Related Data Home Medications Medication Instructions Recorded Confirmed Omeprazole [PriLOSEC] 20 mg PO DAILY@0600 01/11/19 11/20/20 bisacodyL [Dulcolax] 5 mg PO DAILY@0900 02/19/19 11/20/20 Carbidopa-Levodopa 25-100 mg 1 tab PO QID@05,09,12,07/30/19 11/20/20 [Sinemet 25-100 mg] Carbidopa/Levodopa [Sinemet CR 1 tab PO HS@209910/15/19 11/20/20 50-200 mg] Lisinopril [Zestril] 10 mg PO DAILY@0900 PRN 10/15/19 11/20/20 Melatonin 10 mg PO HS@209910/15/19 11/20/20 Mirabegron [Myrbetriq] 25 mg PO HS@209910/15/19 11/20/20 Warfarin [Coumadin] 1 mg PO MOTH@169910/15/19 11/20/20 Warfarin [Coumadin] 2 mg PO SUTUWEFRSA@0 02/24/20 11/20/20 Atorvastatin [Lipitor] 40 mg PO HS@209910/19/20 11/20/20 Cholecalciferol [Vitamin D3 (25 50 mcg PO DAILY@0900 10/19/20 11/20/20 Mcg = 1000 Iu)] Yulissa-Lanta 10 ml PO TID PRN 10/19/20 11/20/20 Nitroglycerin Sl Tabs [Nitrostat] 0.4 mg SUBLINGUAL Q5M PRN 10/19/20 11/20/20 Polyethylene Glycol 3350 [Miralax] 17 gm PO BID@0900,209910/19/20 11/20/20 Isosorbide Mononitrate ER [Imdur] 15 mg PO DAILY@0900 11/20/20 11/20/20 Metoprolol Tartrate [Lopressor] 25 mg PO BID@0900,209911/20/20 11/20/20 amLODIPine [Norvasc] 2.5 mg PO DAILY@0900 11/20/20 11/20/20 Previous Rx's Medication Instructions Recorded Acetaminophen Tab [Tylenol] 650 mg PO Q4H PRN #1 tablet 08/23/19 traMADol HCL [Ultram] 50 mg PO Q8H PRN #9 tab 10/21/20 Allergies Allergy/AdvReac Type Severity Reaction Status Date / Time Influenza Virus Vaccines Allergy Swelling Verified 11/20/20 19:39 Penicillins Allergy Anaphylaxis Verified 11/20/20 19:39 Iodinated Contrast Media AdvReac Chest Pain Verified 11/20/20 19:39 [Iodinated Contrast- Oral and IV Dye] Review of Systems ROS Other: All systems not noted in ROS Statement are negative. <Keenan Barry - Last Filed: 11/20/20 20:55> ROS Other: All systems not noted in ROS Statement are negative. <Eris Hardy - Last Filed: 11/20/20 23:59> ROS Statement: Those systems with pertinent positive or pertinent negative responses have been documented in the HPI. Past Medical History Past Medical History: Asthma, Heart Failure, CVA/TIA, Deep Vein Thrombosis (DVT), GERD/Reflux, Hypertension, Memory Impairment, Musculoskeletal Disorder, Neurologic Disorder, Osteoarthritis (OA) Additional Past Medical History / Comment(s): Ulcerative colitis, diverti culitis, parkinson's disease, CVA which pt was unaware of having-showed on cat scan, several DVTs bilateral legs and pt states since she has had intermittent bilateral ankle edema, thrombophlebitis, PE-pt cannot recall laterallity, generalized arthritis, urinary leakage, UTIs, shingles x 2 History of Any Multi-Drug Resistant Organisms: ESBL Date of last positivie culture/infection: 09/12/20 MDRO Source:: URINE ESBL Past Surgical History: Appendectomy, Cholecystectomy, Hysterectomy, Orthopedic Surgery, Tubal Ligation Additional Past Surgical History / Comment(s): L shoulder injury with surgery to repair, removals of DVTs bilateral legs, cataract removal/lens implants, c olonoscopies, hemorrohoids surgery Past Anesthesia/Blood Transfusion Reactions: Postoperative Nausea & Vomiting (PONV) Additional Past Anesthesia/Blood Transfusion Reaction / Comment(s): Pt received blood with hysterectomy without reaction. Past Psychological History: Anxiety Smoking Status: Never smoker Past Alcohol Use History: None Reported Past Drug Use History: None Reported - Past Family History Father Family Medical History: Asthma, Cancer, COPD Additional Family Medical History / Comment(s): Gallbladder cancer Mother Family Medical History: Myocardial Infarction (AZ) Additional Family Medical History / Comment(s): Mother of a AZ at the age of 48 yrs. Sister(s) Additional Family Medical History / Comment(s): Sister of a blood clot at age 38 yrs-pt cannot recall specifics. <Keenan Barry - Last Filed: 11/20/20 20:55> General Exam Limitations: no limitations <Keenan Barry - Last Filed: 11/20/20 20:55> - General Exam Comments Initial Comments: GENERAL: Patient is well-developed and well-nourished. Patient is nontoxic and well- hydrated and is in mild distress. ENT: Neck is soft and supple. No significant lymphadenopathy is noted. Oropharynx is clear. Moist mucous membranes. Neck has full range of motion without eliciting any pain. . EYES: The sclera were anicteric and conjunctiva were pink and moist. Extraocular movements were intact and pupils were equal round and reactive to light. Eyelids were unremarkable. PULMONARY: Unlabored respirations. Good breath sounds bilaterally. No audible rales rhonchi or wheezing was noted. CARDIOVASCULAR: There is a regular rate and rhythm without any murmurs gallops or rubs. ABDOMEN: Soft and nontender with normal bowel sounds. No palpable organomegaly was noted. There is no palpable pulsatile mass. SKIN: Skin is clear with no lesions or rashes and otherwise unremarkable. NEUROLOGIC: Patient is alert and oriented x3. Cranial nerves II through XII are grossly intact. Motor and sensory are also intact. Normal speech, volume and content. Symmetrical smile. MUSCULOSKELETAL: Normal extremities with adequate strength and full range of motion. LYMPHATICS: No significant lymphadenopathy is noted PSYCHIATRIC: Normal psychiatric evaluation. (Keenan Barry) Course Vital Signs 11/20/20 18:32 Temperature 98.1 F Pulse Rate 59 L Respiratory 18 Rate Blood Pressure 149/66 O2 Sat by Pulse 98 Oximetry Medical Decision Making <Keenan Barry - Last Filed: 11/20/20 20:55> - Lab Data Result diagrams: 11/20/20 22:11/20/20 22: <Eris Hardy - Last Filed: 11/20/20 23:59> - Medical Decision Making EKG shows sinus bradycardia 54 bpm WI interval 146 dresses 90 QT interval 410 QTC is 388. Patient's EKG shows no ST segment elevation or depression. Patient's care will be taking over by Dr. Larry at 9 PM (Keenan Barry) When I reevaluate the patient at shift change, her symptoms have resolved. I then went and reviewed the results with the patient, also discussed the results with the patient's daughter Vannesa ([phone]). They state that since there are no beds available would prefer to go home, and has patient symptom- free this seems acceptable, will return if there is any recurrence or any new symptoms. (Eris Hardy) - Lab Data Lab Results 11/20/20 11/20/20 11/20/20 Range/Units 22:21 22:21 22:21 WBC 5.5 (3.8-10.6) k/uL RBC 4.50 (3.80-5.40) m/uL Hgb 13.7 (11.4-16.0) gm/dL Hct 39.2 (34.0-46.0) % MCV 87.1 (80.0-100.0) fL MCH 30.3 (25.0-35.0) pg MCHC 34.8 (31.0-37.0) g/dL RDW 13.4 (11.5-15.5) % Plt Count 195 (150-450) k/uL MPV 7.6 Neutrophils % 49 % Lymphocytes % 40 % Monocytes % 6 % Eosinophils % 2 % Basophils % 1 % Neutrophils # 2.7 (1.3-7.7) k/uL Lymphocytes # 2.2 (1.0-4.8) k/uL Monocytes # 0.4 (0-1.0) k/uL Eosinophils # 0.1 (0-0.7) k/uL Basophils # 0.1 (0-0.2) k/uL PT (9.0-12.0) sec INR (<1.2) APTT (22.0-30.0) sec Sodium 140 (137-145) mmol/L Potassium 3.9 (3.5-5.1) mmol/L Chloride 103 (98-107) mmol/L Carbon Dioxide 31 H (22-30) mmol/L Anion Gap 6 mmol/L BUN 23 H (7-17) mg/dL Creatinine 0.69 (0.52-1.04) mg/dL Est GFR (CKD-EPI)AfAm >90 (>60 ml/min/1.73 sqM) Est GFR (CKD-EPI)NonAf 83 (>60 ml/min/1.73 sqM) Glucose 93 (74-99) mg/dL Calcium 9.0 (8.4-10.2) mg/dL Magnesium 2.2 (1.6-2.3) mg/dL Total Bilirubin 0.8 (0.2-1.3) mg/dL AST 21 (14-36) U/L ALT <6 (4-34) U/L Alkaline Phosphatase 61 (38-126) U/L Troponin I <0.012 (0.000-0.034) ng/mL Total Protein 6.8 (6.3-8.2) g/dL Albumin 3.9 (3.5-5.0) g/dL 11/20/20 Range/Units 22:53 WBC (3.8-10.6) k/uL RBC (3.80-5.40) m/uL Hgb (11.4-16.0) gm/dL Hct (34.0-46.0) % MCV (80.0-100.0) fL MCH (25.0-35.0) pg MCHC (31.0-37.0) g/dL RDW (11.5-15.5) % Plt Count (150-450) k/uL MPV Neutrophils % % Lymphocytes % % Monocytes % % Eosinophils % % Basophils % % Neutrophils # (1.3-7.7) k/uL Lymphocytes # (1.0-4.8) k/uL Monocytes # (0-1.0) k/uL Eosinophils # (0-0.7) k/uL Basophils # (0-0.2) k/uL PT 24.4 H (9.0-12.0) sec INR 2.5 H (<1.2) APTT 25.3 (22.0-30.0) sec Sodium (137-145) mmol/L Potassium (3.5-5.1) mmol/L Chloride (98-107) mmol/L Carbon Dioxide (22-30) mmol/L Anion Gap mmol/L BUN (7-17) mg/dL Creatinine (0.52-1.04) mg/dL Est GFR (CKD-EPI)AfAm (>60 ml/min/1.73 sqM) Est GFR (CKD-EPI)NonAf (>60 ml/min/1.73 sqM) Glucose (74-99) mg/dL Calcium (8.4-10.2) mg/dL Magnesium (1.6-2.3) mg/dL Total Bilirubin (0.2-1.3) mg/dL AST (14-36) U/L ALT (4-34) U/L Alkaline Phosphatase (38-126) U/L Troponin I (0.000-0.034) ng/mL Total Protein (6.3-8.2) g/dL Albumin (3.5-5.0) g/dL Disposition <Keenan Barry - Last Filed: 11/20/20 20:55> Is patient prescribed a controlled substance at d/c from ED?: No <Eris Hardy - Last Filed: 11/20/20 23:59> Clinical Impression: Chest pain Disposition: HOME SELF-CARE Condition: Good Instructions (If sedation given, give patient instructions): Chest Pain (ED) Referrals: Jesus Cooney MD [Primary Care Provider] - 1-2 days
--- NOTE | 2020-11-20 22:09 | XR ---
EXAMINATION TYPE: XR chest 2V DATE OF EXAM: 11/20/2020 CLINICAL HISTORY: Chest Pain. TECHNIQUE: Frontal and lateral view of the chest. COMPARISON: 10/19/2020 chest radiograph FINDINGS: The cardiomediastinal silhouette is within normal limits for size. Pulmonary vasculature i s normal. There is no focal air space opacity, pleural effusion, or pneumothorax seen. The osseous st ructures are intact. IMPRESSION: No acute cardiopulmonary process.
[2020-11-20 22:25] LABS: Basophils # (A) 0.1 k/uL (0-0.2); Basophils % (A) 1 %; Eosinophils # (A) 0.1 k/uL (0-0.7); Eosinophils % (A) 2 %; HCT 39.2 % (34.0-46.0); HGB 13.7 gm/dL (11.4-16.0); Lymphocytes # (A) 2.2 k/uL (1.0-4.8); Lymphocytes % (A) 40 %; MCH 30.3 pg (25.0-35.0); MCHC 34.8 g/dL (31.0-37.0); MCV 87.1 fL (80.0-100.0); Mean Platelet Volume 7.6; Monocytes # (A) 0.4 k/uL (0-1.0); Monocytes % (A) 6 %; Neutrophils # (A) 2.7 k/uL (1.3-7.7); Neutrophils % (A) 49 %; Platelet Count 195 k/uL (150-450); RDW 13.4 % (11.5-15.5); WBC 5.5 k/uL (3.8-10.6)
[2020-11-20 22:34] LABS: ALT <6 U/L (4-34); AST 21 U/L (14-36); African American GFR (CKD) >90 (>60 ml/min/1.73 sqM); Albumin 3.9 g/dL (3.5-5.0); Alkaline Phosphatase 61 U/L (38-126); Anion Gap 6 mmol/L; Blood Urea Nitrogen 23 mg/dL (7-17); Carbon Dioxide 31 mmol/L (22-30); Chloride 103 mmol/L (98-107); Glucose 93 mg/dL (74-99); Magnesium 2.2 mg/dL (1.6-2.3); Non-African American GFR(CKD) 83 (>60 ml/min/1.73 sqM); Potassium 3.9 mmol/L (3.5-5.1); Sodium 140 mmol/L (137-145); Total Bilirubin 0.8 mg/dL (0.2-1.3); Total Protein 6.8 g/dL (6.3-8.2)
[2020-11-20 23:35] LABS: INR 2.5 (<1.2)
[2020-11-20 23:36] LABS: Partial Thromboplastin Time 25.3 sec (22.0-30.0); Prothrombin Time 24.4 sec (9.0-12.0)
[2020-11-21 00:12] VITALS: RESP 17
[2020-11-21 00:13] VITALS: BP 146/82; PULSE 88
== END 2020-11-21 00:53 | disposition home or self-care (01) ==
LOC: EC 18:29
DX: R07.9 Chest pain, unspecified (principal); I48.91 Unspecified atrial fibrillation; J45.909 Unspecified asthma, uncomplicated; I11.0 Hypertensive heart disease with heart failure; I50.9 Heart failure, unspecified; K21.9 Gastro-esophageal reflux disease without esophagitis; G20 Parkinson's disease; F41.9 Anxiety disorder, unspecified; Z79.899 Other long term (current) drug therapy; Z79.01 Long term (current) use of anticoagulants; Z88.0 Allergy status to penicillin; Z88.7 Allergy status to serum and vaccine; Z91.041 Radiographic dye allergy status; Z86.73 Personal history of transient ischemic attack (TIA), and cerebral infarction without residual deficits; Z86.718 Personal history of other venous thrombosis and embolism
CPT/HCPCS: 36415; 71046; 80053; 83735; 84484; 85025; 85610; 85730; 93005; 99285

== ENCOUNTER 2020-11-24 14:58 | Inpatient (IN) | payer MEDICARE, OTHER ==
--- NOTE | 2020-11-24 15:25 | ED ---
Chest Pain HPI - General Chief Complaint: Chest Pain Stated Complaint: Chest Pain Time Seen by Provider: 11/24/20 15:10 Source: patient, EMS, old records reviewed Mode of arrival: EMS Limitations: no limitations - History of Present Illness Initial Comments: Patient is an 80-year-old female past medical history of A. fib on Coumadin, recurrent urinary tract infections and presents emergency room with reported chest pain and dysuria. Patient resides at [facility] on the [place]. States that approximately 2 hours prior to arrival the patient started having some left sided chest pain which radiates into her left arm. States that the pain is reproducible upon palpation. Reports a history of similar pain in the past and was hospitalized a month ago. Associated shortness of breath. Denies cough or fevers. No history of coronary disease. Patient is also reporting to burning with urination and increased frequency. Has a history of UTIs with ESBL. Denies any changes in her bowel habits. Does admit to some suprapubic pain. The patient was given a nitro upon transfer to the hospital. States she has no improvement in her symptoms. No other alleviating, precipitating or modifying factors - Related Data Home Medications Medication Instructions Recorded Confirmed Omeprazole [PriLOSEC] 20 mg PO DAILY@0600 01/11/19 11/24/20 bisacodyL [Dulcolax] 5 mg PO DAILY 02/19/19 11/24/20 Carbidopa-Levodopa 25-100 mg 1 tab PO QID@05,09,13,17 07/30/19 11/24/20 [Sinemet 25-100 mg] Carbidopa/Levodopa [Sinemet CR 1 tab PO HS@2100 10/15/19 11/24/20 50-200 mg] Lisinopril [Zestril] 10 mg PO DAILY 10/15/19 11/24/20 Melatonin 10 mg PO HS 10/15/19 11/24/20 Mirabegron [Myrbetriq] 25 mg PO HS 10/15/19 11/24/20 Warfarin [Coumadin] 1 mg PO MOTH@1700 10/15/19 11/24/20 Warfarin [Coumadin] 2 mg PO SUTUWEFRSA@1700 02/24/20 11/24/20 Atorvastatin [Lipitor] 40 mg PO HS 10/19/20 11/24/20 Cholecalciferol [Vitamin D3 (25 50 mcg PO DAILY 10/19/20 11/24/20 Mcg = 1000 Iu)] Nitroglycerin Sl Tabs [Nitrostat] 0.4 mg SL Q5M PRN 10/19/20 11/24/20 Polyethylene Glycol 3350 [Miralax] 17 gm PO BID 10/19/20 11/24/20 amLODIPine [Norvasc] 2.5 mg PO DAILY 11/20/20 11/24/20 Mag Hydrox/Aluminum Hyd/Simeth 10 ml PO TID PRN 11/24/20 11/24/20 [Mylanta Maximum Strength Liq] Metoprolol Tartrate [Lopressor] 25 mg PO Q12H 11/24/20 11/24/20 clonazePAM 0.25 mg PO BID 11/24/20 11/24/20 Previous Rx's Medication Instructions Recorded Acetaminophen Tab [Tylenol] 650 mg PO Q4H PRN #1 tablet 08/23/19 Enoxaparin [Lovenox] 70 mg SQ Q12H 2 Days #4 syringe 11/27/20 Isosorbide Mononitrate ER [Imdur] 30 mg PO DAILY tab.er.24h 11/27/20 traMADol HCL [Ultram] 50 mg PO Q8H PRN #4 tab 11/27/20 Allergies Allergy/AdvReac Type Severity Reaction Status Date / Time Influenza Virus Vaccines Allergy Swelling Verified 11/24/20 15:28 Penicillins Allergy Anaphylaxis Verified 11/24/20 15:28 Iodinated Contrast Media AdvReac Chest Pain Verified 11/24/20 15:28 [Iodinated Contrast- Oral and IV Dye] Review of Systems ROS Statement: Those systems with pertinent positive or pertinent negative responses have been documented in the HPI. ROS Other: All systems not noted in ROS Statement are negative. EKG Findings - EKG Comments: EKG Findings:: EKG demonstrates normal sinus rhythm with a ventricular rate of 65. IA interval 142. Contrast 84. QTC of 424. No acute ST segment elevations or depressions. Some baseline artifact Past Medical History Past Medical History: Asthma, Heart Failure, CVA/TIA, Deep Vein Thrombosis (DVT), GERD/Reflux, Hypertension, Memory Impairment, Musculoskeletal Disorder, Neurologic Disorder, Osteoarthritis (OA) Additional Past Medical History / Comment(s): Ulcerative colitis, diverticulitis, parkinson's disease, CVA which pt was unaware of having-showed on cat scan, several DVTs bilateral legs and pt states since she has had intermittent bilateral ankle edema, thrombophlebitis, PE-pt cannot recall laterallity, generalized arthritis, urinary leakage, UTIs, shingles x 2 History of Any Multi-Drug Resistant Organisms: ESBL Date of last positivie culture/infection: 09/12/20 MDRO Source:: URINE ESBL Past Surgical History: Appendectomy, Cholecystectomy, Hysterectomy, Orthopedic Surgery, Tubal Ligation Additional Past Surgical History / Comment(s): L shoulder injury with surgery to repair, removals of DVTs bilateral legs, cataract removal/lens implants, colonoscopies, hemorrohoids surgery Past Anesthesia/Blood Transfusion Reactions: Postoperative Nausea & Vomiting (PONV) Additional Past Anesthesia/Blood Transfusion Reaction / Comment(s): Pt received blood with hysterectomy without reaction. Past Psychological History: Anxiety Smoking Status: Never smoker Past Alcohol Use History: None Reported Past Drug Use History: None Reported - Past Family History Father Family Medical History: Asthma, Cancer, COPD Additional Family Medical History / Comment(s): Gallbladder cancer Mother Family Medical History: Myocardial Infarction ([place]) Additional Family Medical History / Comment(s): Mother of a [place] at the age of 48 yrs. Sister(s) Additional Family Medical History / Comment(s): Sister of a blood clot at age 38 yrs-pt cannot recall specifics. General Exam Limitations: no limitations General appearance: alert, in no apparent distress Head exam: Present: atraumatic, normocephalic, normal inspection Eye exam: Present: normal appearance, PERRL, EOMI. Absent: scleral icterus, conjunctival injection, periorbital swelling ENT exam: Present: normal exam, mucous membranes moist Neck exam: Present: normal inspection. Absent: tenderness, meningismus, lymphadenopathy Respiratory exam: Present: normal lung sounds bilaterally, chest wall tenderness (left anterior chest wall). Absent: respiratory distress, wheezes, rales, rhonchi, stridor Cardiovascular Exam: Present: regular rate, normal rhythm, normal heart sounds. Absent: systolic murmur, diastolic murmur, rubs, gallop, clicks GI/Abdominal exam: Present: soft, normal bowel sounds. Absent: distended, tenderness, guarding, rebound, rigid Extremities exam: Present: normal inspection, full ROM, normal capillary refill. Absent: tenderness, pedal edema, joint swelling, calf tenderness Back exam: Present: normal inspection Neurological exam: Present: alert, oriented X3, CN II-XII intact Psychiatric exam: Present: normal affect, normal mood Skin exam: Present: warm, dry, intact, normal color. Absent: rash Course Vital Signs 11/24/20 11/24/20 15:09 20:11 Temperature 97.9 F Pulse Rate 61 76 Respiratory 16 16 Rate Blood Pressure 125/63 172/94 O2 Sat by Pulse 96 95 Oximetry Chest Pain MDM - MDM Upon arrival patient was placed in room 8. A thorough history and physical exam is performed. 12-lead EKG is performed. Laboratory studies are conducted. INR therapeutic at 2.6. Urinalysis does demonstrate moderate leukocyte Estrace with many bacteria. I did review the patient's microbiology which does demonstrate that she has ESBL. Due to the UTI resistance the patient was started on Rocephin. Did recommend admission to trend her troponins and IV antibiotics. Dr. Damon will be consulted. Spoke with Dr. gudino who agreed to admit the patient. Patient is awaiting a bed on the floor Disposition Clinical Impression: Weakness, Urinary tract infection, ESBL (extended spectrum beta-lactamase) producing bacteria infection, Chest pain Disposition: ADMITTED IP TO THIS HOSP Condition: Stable Is patient prescribed a controlled substance at d/c from ED?: No Decision to Admit Reason: Admit from EC Decision Date: 11/24/20 Decision Time: 19:01
[2020-11-24 15:43] LABS: Basophils % (A) 1 %; Eosinophils # (A) 0.1 k/uL (0-0.7); Eosinophils % (A) 2 %; HCT 37.5 % (34.0-46.0); HGB 13.1 gm/dL (11.4-16.0); Lymphocytes # (A) 1.8 k/uL (1.0-4.8); Lymphocytes % (A) 32 %; MCH 30.7 pg (25.0-35.0); MCHC 34.8 g/dL (31.0-37.0); MCV 88.2 fL (80.0-100.0); Mean Platelet Volume 7.7; Monocytes # (A) 0.4 k/uL (0-1.0); Monocytes % (A) 6 %; Neutrophils # (A) 3.3 k/uL (1.3-7.7); Neutrophils % (A) 57 %; Platelet Count 229 k/uL (150-450); RBC 4.25 m/uL (3.80-5.40); RDW 13.5 % (11.5-15.5); WBC 5.8 k/uL (3.8-10.6)
[2020-11-24 15:52] LABS: INR 2.6 (<1.2); Partial Thromboplastin Time 29.4 sec (22.0-30.0); Prothrombin Time 24.8 sec (9.0-12.0)
[2020-11-24 15:55] LABS: ALT <6 U/L (4-34); AST 18 U/L (14-36); African American GFR (CKD) >90 (>60 ml/min/1.73 sqM); Albumin 3.7 g/dL (3.5-5.0); Alkaline Phosphatase 51 U/L (38-126); Anion Gap 8 mmol/L; Blood Urea Nitrogen 18 mg/dL (7-17); Calcium 8.9 mg/dL (8.4-10.2); Carbon Dioxide 27 mmol/L (22-30); Chloride 105 mmol/L (98-107); Glucose 114 mg/dL (74-99); Lipase 101 U/L (23-300); Magnesium 1.9 mg/dL (1.6-2.3); Non-African American GFR(CKD) 88 (>60 ml/min/1.73 sqM); Potassium 3.8 mmol/L (3.5-5.1); Sodium 140 mmol/L (137-145); Total Bilirubin 0.6 mg/dL (0.2-1.3); Total Protein 6.3 g/dL (6.3-8.2)
[2020-11-24 16:24] LABS: Appearance,Urine Cloudy (Clear); Bacteria,Urine Many /hpf; Bilirubin,Urine Negative (Negative); Blood,Urine Negative (Negative); Color,Urine Yellow; Glucose,Urine (UA) Negative (Negative); Ketones,Urine 1+ (Negative); Leukocyte Esterase,Urine Moderate (Negative); Mucus,Urine Rare /hpf; Nitrite,Urine Negative (Negative); Protein,Urine 1+ (Negative); RBC,Urine 3 /hpf (0-5); Specific Gravity,Urine 1.028 (1.001-1.035); Squamous Epithelial Cell,Urine 9 /hpf (0-4); WBC,Urine 16 /hpf (0-5)
--- NOTE | 2020-11-24 18:11 | XR ---
EXAMINATION TYPE: XR chest 2V DATE OF EXAM: 11/24/2020 CLINICAL HISTORY: Left-sided chest pain radiating into left arm and neck. Shortest of breath. TECHNIQUE: Frontal and lateral view of the chest. COMPARISON: 11/20/2020 FINDINGS: The cardiomediastinal silhouette is within normal limits for size. Pulmonary vasculature i s normal. There is linear subsegmental atelectasis over the left midlung. There is no focal air space opacity. No pleural effusion. No pneumothorax seen. No acute displaced osseous fracture. IMPRESSION: No acute cardiopulmonary process.
[2020-11-24] MEDS ORDERED: cefTRIAXone IN SWFI 1,000 MG/10 ML SYRINGE IVP STA (18:57)
[2020-11-24] MEDS ORDERED: NALOXONE 0.4 MG/ML 1 ML VIAL IV PRN (19:01)
[2020-11-24] MEDS ORDERED: traMADol 50 MG TAB PO PRN (19:03)
[2020-11-24] MEDS ORDERED: ASPIRIN 81 MG PO STA (19:06)
[2020-11-24] MEDS: CARBIDOPA-LEVODOPA 25-100 MG 1 EACH TAB PO SCH (20:06)
[2020-11-24] MEDS: METOPROLOL TARTRATE 25 MG TAB PO SCH (20:06)
[2020-11-24] MEDS: polyethylene glycoL 3350 17 GM POWD.PACK PO SCH (21:30)
[2020-11-24] MEDS: NON FORMULARY DRUG (Mirabegron [Myrbetriq] 25 MG Tab.Er.24h) PO SCH (21:30)
[2020-11-24] MEDS: MELATONIN 5 MG TABLET PO SCH (21:30)
[2020-11-24] MEDS: ATORVASTATIN 40 MG TAB PO SCH (21:30)
[2020-11-24] MEDS: CARBIDOPA-LEVODOPA ER 50-200MG 1 EACH TABLET.ER PO SCH (23:29)
[2020-11-24] MEDS: clonazePAM 0.5 MG TAB PO SCH (23:29)
[2020-11-25] MEDS: ACETAMINOPHEN TAB 325 MG TAB PO PRN (05:33)
[2020-11-25] MEDS: CARBIDOPA-LEVODOPA 25-100 MG 1 EACH TAB PO SCH ×4 (05:33→16:15)
[2020-11-25 07:31] LABS: African American GFR (CKD) >90 (>60 ml/min/1.73 sqM); Anion Gap 2 mmol/L; Blood Urea Nitrogen 18 mg/dL (7-17); Calcium 8.7 mg/dL (8.4-10.2); Carbon Dioxide 32 mmol/L (22-30); Chloride 106 mmol/L (98-107); Glucose 83 mg/dL (74-99); Non-African American GFR(CKD) 85 (>60 ml/min/1.73 sqM); Potassium 3.6 mmol/L (3.5-5.1); Sodium 140 mmol/L (137-145)
[2020-11-25] MEDS: CHOLECALCIFEROL 25 MCG (1000 IU) TABLET PO SCH (08:20)
[2020-11-25] MEDS: clonazePAM 0.5 MG TAB PO SCH ×2 (08:20→21:08)
[2020-11-25] MEDS: lisinopriL 10 MG TAB PO SCH (08:20)
[2020-11-25] MEDS: bisacodyL 5 MG TABLET.DR PO SCH (08:20)
[2020-11-25] MEDS: PANTOPRAZOLE 40 MG TABLET PO SCH (08:20)
[2020-11-25] MEDS: METOPROLOL TARTRATE 25 MG TAB PO SCH ×2 (08:21→21:09)
[2020-11-25] MEDS: ISOSORBIDE MONONITRATE ER 15 MG TAB PO SCH (08:21)
[2020-11-25] MEDS: amLODIPine 2.5 MG TAB PO SCH (08:21)
[2020-11-25] MEDS: polyethylene glycoL 3350 17 GM POWD.PACK PO SCH ×2 (08:21→21:08)
[2020-11-25 09:03] LABS: Basophils # (A) 0.04 X 10*3/uL (0.00-0.10); Basophils % (A) 0.7 %; Eosinophils # (A) 0.14 X 10*3/uL (0.04-0.35); Eosinophils % (A) 2.5 %; HCT 35.1 % (37.2-46.3); HGB 11.7 g/dL (12.0-15.0); Lymphocytes # (A) 2.13 X 10*3/uL (0.90-5.00); Lymphocytes % (A) 37.4 %; MCH 30.2 pg (27.0-32.0); MCHC 33.3 g/dL (32.0-37.0); MCV 90.5 fL (80.0-97.0); Mean Platelet Volume 10.9 fL (9.5-12.2); Monocytes % (A) 10.5 %; Neutrophils # (A) 2.78 X 10*3/uL (1.80-7.70); Neutrophils % (A) 48.7 %; Platelet Count 187 X 10*3/uL (140-440); RBC 3.88 X 10*6/uL (4.10-5.20); RDW 13.1 % (11.5-14.5)
--- NOTE | 2020-11-25 10:12 | P.CRDCN ---
History of Present Illness History of present illness: HISTORY OF PRESENTING ILLNESS This is a pleasant 80-year-old female past medical history significant for proximal atrial fibrillation on Coumadin, Parkinson's disease, hypertension, dyslipidemia, Chronic DVT. She follows in the office with Dr. Wong. We have been asked to see in consultation for chest pain. Atrial fibrillation was recently diagnosed October 2019. Patient presented to the hospital in 02/2020 with chest pain, a Lexiscan stress test was completed in 02/2020 and was normal. Patient was seen approximately 1 month ago for similar episode and echocardiogram was performed with preserved ejection fraction and she was discharged home with outpatient follow-up with Dr. Wong. Unfortunately she has been having frequent episodes of chest pain and states this has been bothersome for her. Previously as as well as with current admission she does have very reproducible chest pain to her left lateral chest wall and with movement of her left arm however she states the pain that brought her in was more of a chest burning sensation, pressure and that it was improved with nitroglycerin given in an emergency department. She is also concerned as she has had 3 siblings from heart disease in the last year. She denies any associated shortness breath, nausea or diaphoresis. REVIEW OF SYSTEMS At the time of my exam: CONSTITUTIONAL: Denies fever or chills. CARDIOVASCULAR: Denies chest pain, shortness of breath, orthopnea, PND or palpitations. RESPIRATORY: Denies cough. GASTROINTESTINAL: Denies abdominal pain, diarrhea, constipation, nausea or vo miting. MUSCULOSKELETAL: Denies myalgias. NEUROLOGIC: Denies numbness, tingling, headacbe or weakness. ENDOCRINE: Denies fatigue, weight change, polydipsia or polyurina. GENITOURINARY: Denies burning, hematuria or urgency with micturation. HEMATOLOGIC: Denies history of anemia or bleeding. PHYSICAL EXAMINATION CONSTITUTIONAL: No apparent distress. HEENT: Head is normocephalic. Pupils are equal, round. Sclerae anicteric. Mucous membranes of the mouth are moist. No JVD. No carotid bruit. CHEST EXAMINATION: Lungs are clear to auscultation. No chest wall tenderness is noted on palpation or with deep breathing. HEART EXAMINATION: Regular rate and rhythm. S1, S2 heard. No murmurs, gallops or rub. ABDOMEN: Soft, nontender. Positive bowel sounds. EXTREMITIES: 2+ peripheral pulses, no lower extremity edema and no calf tenderness. NEUROLOGIC EXAMINATION: Patient is awake, alert and oriented x3. ASSESSMENT -Chest pain, Troponin negative x 3. Very reproducible chest pain on exam however also had different chest pressure sensation which brought her in which resolved with nitro. -History of chronic DVT -Paroxysmal atrial fibrillation -History of hypertension -Parkinson's disease PLAN Patient with numerous prior admissions and frequent complaints of chest pain. Some of this is reproducible however other chest pain concerning for angina, improved with nitroglycerin area she has had prior workup with echocardiogram and stress tests which have been unrevealing. Therefore discussed definitive workup with heart catheterization and patient would like this performed as she is very concerned with family members having coronary artery disease and passing away in the last year. Therefore we will set patient up for left heart catheterization on Friday if able. Past Medical History Past Medical History: Asthma, Heart Failure, CVA/TIA, Deep Vein Thrombosis (DVT), GERD/Reflux, Hypertension, Memory Impairment, Musculoskeletal Disorder, Neurologic Disorder, Osteoarthritis (OA) Additional Past Medical History / Comment(s): Ulcerative colitis, diverticulitis, parkinson's disease, CVA which pt was unaware of having-showed on cat scan, several DVTs bilateral legs and pt states since she has had intermittent bilateral ankle edema, thrombophlebitis, PE-pt cannot recall laterallity, generalized arthritis, urinary leakage, UTIs, shingles x 2 History of Any Multi-Drug Resistant Organisms: ESBL Date of last positivie culture/infection: 09/12/20 MDRO Source:: URINE ESBL Past Surgical History: Appendectomy, Cholecystectomy, Hysterectomy, Orthopedic Surgery, Tubal Ligation Additional Past Surgical History / Comment(s): L shoulder injury with surgery to repair, removals of DVTs bilateral legs, cataract removal/lens implants, colonoscopies, hemorrohoids surgery Past Anesthesia/Blood Transfusion Reactions: Postoperative Nausea & Vomiting (PONV) Additional Past Anesthesia/Blood Transfusion Reaction / Comment(s): Pt received blood with hysterectomy without reaction. Past Psychological History: Anxiety Additional Psychological History / Comment(s): Pt resides at [facility]. Staff get her up into wheelchair. Smoking Status: Never smoker Past Alcohol Use History: None Reported Past Drug Use History: None Reported - Past Family History Father Family Medical History: Asthma, Cancer, COPD Additional Family Medical History / Comment(s): Gallbladder cancer Mother Family Medical History: Myocardial Infarction ([place]) Additional Family Medical History / Comment(s): Mother of a [place] at the age of 48 yrs. Sister(s) Additional Family Medical History / Comment(s): Sister of a blood clot at age 38 yrs-pt cannot recall specifics. Medications and Allergies Home Medications Medication Instructions Recorded Confirmed Type Omeprazole [PriLOSEC] 20 mg PO DAILY@0600 01/11/19 11/24/20 History bisacodyL [Dulcolax] 5 mg PO DAILY 02/19/19 11/24/20 History Carbidopa-Levodopa 25-100 mg 1 tab PO QID@05,09,,17 07/30/19 11/24/20 History [Sinemet 25-100 mg] Acetaminophen Tab [Tylenol] 650 mg PO Q4H PRN #1 tablet 08/23/19 11/24/20 Rx Carbidopa/Levodopa [Sinemet CR 1 tab PO HS@2100 10/15/19 11/24/20 History 50-200 mg] Lisinopril [Zestril] 10 mg PO DAILY 10/15/19 11/24/20 History Melatonin 10 mg PO HS 10/15/19 11/24/20 History Mirabegron [Myrbetriq] 25 mg PO HS 10/15/19 11/24/20 History Warfarin [Coumadin] 1 mg PO MOTH@1700 10/15/19 11/24/20 History Warfarin [Coumadin] 2 mg PO SUTUWEFRSA@1700 02/24/20 11/24/20 History Atorvastatin [Lipitor] 40 mg PO HS 10/19/20 11/24/20 History Cholecalciferol [Vitamin D3 (25 50 mcg PO DAILY 10/19/20 11/24/20 History Mcg = 1000 Iu)] Nitroglycerin Sl Tabs [Nitrostat] 0.4 mg SL Q5M PRN 10/19/20 11/24/20 History Polyethylene Glycol 3350 [Miralax] 17 gm PO BID 10/19/20 11/24/20 History traMADol HCL [Ultram] 50 mg PO Q8H PRN #9 tab 10/21/20 11/24/20 Rx amLODIPine [Norvasc] 2.5 mg PO DAILY 11/20/20 11/24/20 History Isosorbide Mononitrate ER [Imdur] 15 mg PO DAILY 11/24/20 11/24/20 History Mag Hydrox/Aluminum Hyd/Simeth 10 ml PO TID PRN 11/24/20 11/24/20 History [Mylanta Maximum Strength Liq] Metoprolol Tartrate [Lopressor] 25 mg PO Q12H 11/24/20 11/24/20 History clonazePAM 0.25 mg PO BID 11/24/20 11/24/20 History Allergies Allergy/AdvReac Type Severity Reaction Status Date / Time Influenza Virus Vaccines Allergy Swelling Verified 11/24/20 15:28 Penicillins Allergy Anaphylaxis Verified 11/24/20 15:28 Iodinated Contrast Media AdvReac Chest Pain Verified 11/24/20 15:28 [Iodinated Contrast- Oral and IV Dye] Physical Exam Vitals: Vital Signs Temp Pulse Pulse Resp BP BP Pulse Ox 11/25/20 07:10 97.7 F 59 L 16 161/72 96 11/25/20 02:11 98.3 F 53 L 18 117/66 95 11/24/20 21:49 98.3 F 55 L 16 153/66 96 11/24/20 20:11 76 16 172/94 95 11/24/20 15:09 97.9 F 61 16 125/63 96 Intake and Output 11/24/20 11/25/20 11/25/20 22:59 06:59 14:59 Other: # Voids 1 Weight 69.4 kg Results 11/25/20 06:29 11/25/20 06:29 Cardiac Enzymes 11/24/20 11/24/20 11/24/20 Range/Units 15:23 15:23 21:14 AST 18 (14-36) U/L Troponin I <0.012 <0.012 (0.000-0.034) ng/mL 11/25/20 Range/Units 00:39 AST (14-36) U/L Troponin I <0.012 (0.000-0.034) ng/mL Coagulation 11/24/20 Range/Units 15:23 PT 24.8 H (9.0-12.0) sec APTT 29.4 (22.0-30.0) sec CBC 11/24/20 11/25/20 Range/Units 15:23 06:29 WBC 5.8 5.70 (3.8-10.6) k/uL RBC 4.25 3.88 L (3.80-5.40) m/uL Hgb 13.1 11.7 L (11.4-16.0) gm/dL Hct 37.5 35.1 L (34.0-46.0) % Plt Count 229 187 (150-450) k/uL Comprehensive Metabolic Panel 11/24/20 11/25/20 Range/Units 15:23 06:29 Sodium 140 140 (137-145) mmol/L Potassium 3.8 3.6 (3.5-5.1) mmol/L Chloride 105 106 (98-107) mmol/L Carbon Dioxide 27 32 H (22-30) mmol/L BUN 18 H 18 H (7-17) mg/dL Creatinine 0.58 0.63 (0.52-1.04) mg/dL Glucose 114 H 83 (74-99) mg/dL Calcium 8.9 8.7 (8.4-10.2) mg/dL AST 18 (14-36) U/L ALT <6 (4-34) U/L Alkaline Phosphatase 51 (38-126) U/L Total Protein 6.3 (6.3-8.2) g/dL Albumin 3.7 (3.5-5.0) g/dL Current Medications Generic Name Dose Route Start Last Admin Trade Name Freq PRN Reason Stop Dose Admin Acetaminophen 650 mg 11/24/20 19:03 11/25/20 05:33 Acetaminophen Tab 325 Mg Tab PO 650 mg Q4H PRN Administration Pain Amlodipine Besylate 2.5 mg 11/25/20 09:00 11/25/20 08:21 Amlodipine 2.5 Mg Tab PO 2.5 mg DAILY JOSETTE Administration Atorvastatin Calcium 40 mg 11/24/20 21:00 11/24/20 21:30 Atorvastatin 40 Mg Tab PO 40 mg HS JOSETTE Administration Bisacodyl 5 mg 11/25/20 09:00 11/25/20 08:20 Bisacodyl 5 Mg Tablet.Dr PO 5 mg DAILY JOSETTE Administration Carbidopa/Levodopa 1 each 11/24/20 19:15 11/25/20 08:20 Carbidopa-Levodopa 25-100 Mg 1 Each Tab PO 1 each QID@05,09,13,17 JOSETTE Administration Carbidopa/Levodopa 1 each 11/24/20 21:00 11/24/20 23:29 Carbidopa-Levodopa Er 50-200mg 1 Each Tablet.Er PO 1 each HS@2100 JOSETTE Administration Cholecalciferol 50 mcg 11/25/20 09:00 11/25/20 08:20 Cholecalciferol 25 Mcg (1000 Iu) Tablet PO 50 mcg DAILY JOSETTE Administration Clonazepam 0.25 mg 11/24/20 21:00 11/25/20 08:20 Clonazepam 0.5 Mg Tab PO 0.25 mg BID JOSETTE Administration Isosorbide Mononitrate 15 mg 11/25/20 09:00 11/25/20 08:21 Isosorbide Mononitrate Er 15 Mg Tab PO 15 mg DAILY JOSETTE Administration Lisinopril 10 mg 11/25/20 09:00 11/25/20 08:20 Lisinopril 10 Mg Tab PO 10 mg DAILY JOSETTE Administration Melatonin 10 mg 11/24/20 21:00 11/24/20 21:30 Melatonin 5 Mg Tablet PO 10 mg HS [facility] Administration Metoprolol Tartrate 25 mg 11/24/20 19:15 11/25/20 08:21 Metoprolol Tartrate 25 Mg Tab PO 25 mg Q12H [facility] Administration Naloxone HCl 0.2 mg 11/24/20 19:01 Naloxone 0.4 Mg/Ml 1 Ml Vial IV Q2M PRN Opioid Reversal Non-Formulary Medication 25 mg 11/24/20 21:00 11/24/20 21:30 Mirabegron [Myrbetriq] PO Not Given HS [facility] Pantoprazole Sodium 40 mg 11/25/20 07:30 11/25/20 08:20 Pantoprazole 40 Mg Tablet PO 40 mg DAILY@0730 [facility] Administration Polyethylene Glycol 17 gm 11/24/20 21:00 11/25/20 08:21 Polyethylene Glycol 3350 17 Gm Powd.Pack PO 17 gm BID JOSETTE Administration Tramadol HCl 50 mg 11/24/20 19:03 11/25/20 08:25 Tramadol 50 Mg Tab PO 50 mg Q8H PRN Administration Pain Warfarin Sodium 1 mg 11/27/20 16:00 Warfarin 1 Mg Tab PO MoTh@1600 [facility] Protocol Warfarin Sodium 2 mg 11/25/20 16:00 Warfarin 2 Mg Tab PO SuTuWeFrSa@1600 [facility] Protocol Intake and Output 11/24/20 11/25/20 11/25/20 22:59 06:59 14:59 Other: # Voids 1 Weight 69.4 kg 11/25/20 06:29 11/25/20 06:29
[2020-11-25 10:28] LABS: INR 2.07 (0.90-1.11); Prothrombin Time 21.5 sec (9.9-11.9)
[2020-11-25] MEDS: ASPIRIN 81 MG PO SCH (12:06)
[2020-11-25] MEDS ORDERED: WARFARIN 2 MG TAB PO SCH (16:00)
[2020-11-25] MEDS ORDERED: DILTIAZEM 5 MG/ML 5 ML VIAL IVP STA (17:57)
[2020-11-25] MEDS ORDERED: DILTIAZEM ORAL 30 MG TAB PO SCH (18:30)
[2020-11-25] MEDS: MELATONIN 5 MG TABLET PO SCH (21:08)
[2020-11-25] MEDS: ATORVASTATIN 40 MG TAB PO SCH (21:09)
[2020-11-25] MEDS: NON FORMULARY DRUG (Mirabegron [Myrbetriq] 25 MG Tab.Er.24h) PO SCH (21:10)
[2020-11-25] MEDS: CARBIDOPA-LEVODOPA ER 50-200MG 1 EACH TABLET.ER PO SCH (21:11)
--- NOTE | 2020-11-25 23:30 | CONS ---
CONSULTATION DATE OF SERVICE: 11/25/2020 REASON FOR CONSULTATION: UTI with question of ESBL. HISTORY OF PRESENT ILLNESS: The patient is an 80-year-old female with a past medical history significant for recurrent UTI infection. The patient did present to [facility] ER last evening for evaluation of chest pain and dysuria. Patient's symptom has been going on for 2 hours before presentation to the hospital. chest pain with some radiation to the left arm. The patient describes the pain to be more of a sharp without associated shortness of breath. Nausea, vomiting. The patient is also complaining of suprapubic discomfort and burning of urine along with increased frequency. Denies any diarrhea. With these symptoms, the patient was evaluated by the ER physician. On arrival to the ER, the patient was afebrile. The patient did have a normal white count. Urine has been positive with moderate leukocyte esterase. 15 WBC. Rios PCR was negative. The patient did have a chest x-ray, no acute cardiopulmonary process. The patient has been admitted in the hospital for workup of the chest pain with positive UA, concern for urinary tract infection and a history of ESBL. Infectious Disease was consulted for further management of antibiotic therapy. The patient's last urine culture done in October of 2020, which showed E coli and Proteus, not ESBL. culture in September were ESBL. REVIEW OF SYSTEMS: Positive points have been mentioned in HPI. Rest of systems are negative. PAST MEDICAL HISTORY: Asthma, heart failure, CVA, TIA, DVT, gastroesophageal reflux disease, hypertension, osteoarthritis, ulcerative colitis. History of recurrent UTI. PAST SURGICAL HISTORY: Appendectomy, cholecystectomy, hysterectomy, tubal ligation and shoulder repair. SOCIAL HISTORY: No history of smoking, drinking or drug use. FAMILY HISTORY: Father with history of asthma and cancer, COPD, father with history of ID. ALLERGIES: PENICILLIN, IV CONTRAST DYE. MEDICATIONS: Include the patient is currently on Tylenol, Norvasc, aspirin, Lipitor, Dulcolax, Sinemet, Rocephin 1 g daily, vitamin D3, Klonopin, Imdur, Zestril, melatonin, Lopressor, Narcan, Protonix, MiraLAX, Ultram and Coumadin. PHYSICAL EXAMINATION: Blood pressure 102/59, pulse of 49, temperature 97.5, she is 93% on room air. General description: The patient is an elderly female lying in bed in no distress. HEENT examination: No pallor or scleral icterus. Oral mucous membranes dry. NECK: Trachea central. No thyromegaly. LUNGS: Unlabored breathing, clear to auscultation anteriorly. No wheeze or crackles. HEART S1, S2. Regular rate and rhythm. ABDOMEN: Soft, no tenderness. No guarding. No rigidity. EXTREMITIES: No edema of the feet. SKIN examination: No rash or mass palpable. NEUROLOGICAL: Patient awake and alert and oriented times three. Mood and affect normal. LABS: Hemoglobin is 11.1, white count of 5.70. BUN of 18, Creatinine 0.63. Liver enzymes are normal. Urine was mildly positive. DIAGNOSTIC IMPRESSION AND PLAN: Patient admitted to the hospital with chest pain, also with suprapubic discomfort and urinary burning and frequency in this patient who did have a history of recurrent UTIs. Did have mildly positive UA, more likely from enteric Gram-negative pathogen with question of possible ESBL versus non ESBL pathogen. PLAN: 1. We will keep the patient on Rocephin 1 g daily while waiting for culture to finalize as the last urine culture not positive for ESBL. 2. Workup of the chest pain per Cardiology. 3. We will follow on clinical condition and culture to further adjust medication if needed. Thank you for this consultation. We will follow this patient along with you. MMODL / IJN: [id number] /
[2020-11-25] MEDS: SODIUM CHLORIDE 0.9% 1,000 ML IV SCH (23:45)
[2020-11-26] MEDS: ACETAMINOPHEN TAB 325 MG TAB PO PRN (00:03)
--- NOTE | 2020-11-26 00:18 | P.HPIM ---
History of Present Illness H&P Date: 11/25/20 Chief Complaint: Chest pain Patient is a 80-year-old female with a known history of hypertension, atrial fibrillation, Parkinson's disease, history of CVA/TIA, history of DVT, ulcerative colitis, anxiety, ESBL UTI and other multiple medical problems presents to ER due to complaints of chest pain.. Patient is currently resides the [facility] on the [place]. Approximately 2 hours prior to arrival patient had left-sided chest pain radiating to her left arm. Chest pain is similar to her previous admission. Pain is reproducible upon palpation. Associated shortness of breath. Patient states that her symptoms improved with nitroglycerin sublingual tablets. No complaints of cough or sputum production. No headache or dizziness or lightheadedness. No dysuria or hematuria. No fever no chills. Patient had Lexiscan stress test in February 2020 was normal. Chest x-ray showed no acute cardiopulmonary process EKG showed normal sinus rhythm Laboratory showed WBC 5.8 hemoglobin 13.1 and platelets 229 INR 2.6 Troponin x3 - BNP 249 UA showed cloudy with moderate leukocytes trace with elevated WBCs. Review of Systems Constitutional: Patient denies any fever or chills . No generalized weakness or weight loss. Abdomen: Patient denied nausea vomiting and diarrhea and abdominal pain. Cardiovascular: Patient denies any chest pain or short of breath no palpitations. Respiratory: patient denied any cough or sputum production. No shortness of br eath Neurologic: Patient denied any numbness or tingling headache. Musculoskeletal: Patient denies any complaints of joint swelling or deformity. Skin: Negative Psychiatric: Negative Endocrine: No heat or cold intolerance. No recent weight gain. Genitourinary: No dysuria or hematuria. All other 14 point ROS negative except the above Past Medical History Past Medical History: Asthma, Heart Failure, CVA/TIA, Deep Vein Thrombosis (DVT), GERD/Reflux, Hypertension, Memory Impairment, Musculoskeletal Disorder, Neurologic Disorder, Osteoarthritis (OA) Additional Past Medical History / Comment(s): Ulcerative colitis, diverticulitis, parkinson's disease, CVA which pt was unaware of having-showed on cat scan, several DVTs bilateral legs and pt states since she has had intermittent bilateral ankle edema, thrombophlebitis, PE-pt cannot recall laterallity, generalized arthritis, urinary leakage, UTIs, shingles x 2 History of Any Multi-Drug Resistant Organisms: ESBL Date of last positivie culture/infection: 09/12/20 MDRO Source:: URINE ESBL Past Surgical History: Appendectomy, Cholecystectomy, Hysterectomy, Orthopedic Surgery, Tubal Ligation Additional Past Surgical History / Comment(s): L shoulder injury with surgery to repair, removals of DVTs bilateral legs, cataract removal/lens implants, colonoscopies, hemorrohoids surgery Past Anesthesia/Blood Transfusion Reactions: Postoperative Nausea & Vomiting (PONV) Additional Past Anesthesia/Blood Transfusion Reaction / Comment(s): Pt received blood with hysterectomy without reaction. Past Psychological History: Anxiety Additional Psychological History / Comment(s): Pt resides at [facility]. Staff get her up into wheelchair. Smoking Status: Never smoker Past Alcohol Use History: None Reported Past Drug Use History: None Reported - Past Family History Father Family Medical History: Asthma, Cancer, COPD Additional Family Medical History / Comment(s): Gallbladder cancer Mother Family Medical History: Myocardial Infarction (ND) Additional Family Medical History / Comment(s): Mother of a ND at the age of 48 yrs. Sister(s) Additional Family Medical History / Comment(s): Sister of a blood clot at age 38 yrs-pt cannot recall specifics. Medications and Allergies Home Medications Medication Instructions Recorded Confirmed Type Omeprazole [PriLOSEC] 20 mg PO DAILY@0600 01/11/19 11/24/20 History bisacodyL [Dulcolax] 5 mg PO DAILY 02/19/19 11/24/20 History Carbidopa-Levodopa 25-100 mg 1 tab PO QID@05,09,13,17 07/30/19 11/24/20 History [Sinemet 25-100 mg] Acetaminophen Tab [Tylenol] 650 mg PO Q4H PRN #1 tablet 08/23/19 11/24/20 Rx Carbidopa/Levodopa [Sinemet CR 1 tab PO HS@2100 10/15/19 11/24/20 History 50-200 mg] Lisinopril [Zestril] 10 mg PO DAILY 10/15/19 11/24/20 History Melatonin 10 mg PO HS 10/15/19 11/24/20 History Mirabegron [Myrbetriq] 25 mg PO HS 10/15/19 11/24/20 History Warfarin [Coumadin] 1 mg PO MOTH@1700 10/15/19 11/24/20 History Warfarin [Coumadin] 2 mg PO SUTUWEFTRUDYA@1700 02/24/20 11/24/20 History Atorvastatin [Lipitor] 40 mg PO HS 10/19/20 11/24/20 History Cholecalciferol [Vitamin D3 (25 50 mcg PO DAILY 10/19/20 11/24/20 History Mcg = 1000 Iu)] Nitroglycerin Sl Tabs [Nitrostat] 0.4 mg SL Q5M PRN 10/19/20 11/24/20 History Polyethylene Glycol 3350 [Miralax] 17 gm PO BID 10/19/20 11/24/20 History traMADol HCL [Ultram] 50 mg PO Q8H PRN #9 tab 10/21/20 11/24/20 Rx amLODIPine [Norvasc] 2.5 mg PO DAILY 11/20/20 11/24/20 History Isosorbide Mononitrate ER [Imdur] 15 mg PO DAILY 11/24/20 11/24/20 History Mag Hydrox/Aluminum Hyd/Simeth 10 ml PO TID PRN 11/24/20 11/24/20 History [Mylanta Maximum Strength Liq] Metoprolol Tartrate [Lopressor] 25 mg PO Q12H 11/24/20 11/24/20 History clonazePAM 0.25 mg PO BID 11/24/20 11/24/20 History Allergies Allergy/AdvReac Type Severity Reaction Status Date / Time Influenza Virus Vaccines Allergy Swelling Verified 11/24/20 15:28 Penicillins Allergy Anaphylaxis Verified 11/24/20 15:28 Iodinated Contrast Media AdvReac Chest Pain Verified 11/24/20 15:28 [Iodinated Contrast- Oral and IV Dye] Physical Exam Vitals: Vital Signs Temp Pulse Pulse Resp BP BP Pulse Ox 11/25/20 07:10 97.7 F 59 L 16 161/72 96 11/25/20 02:11 98.3 F 53 L 18 117/66 95 11/24/20 21:49 98.3 F 55 L 16 153/66 96 11/24/20 20:11 76 16 172/94 95 11/24/20 15:09 97.9 F 61 16 125/63 96 Intake and Output 11/24/20 11/25/20 11/25/20 22:59 06:59 14:59 Other: # Voids 1 Weight 69.4 kg PHYSICAL EXAMINATION: Patient is lying in the bed comfortably, no acute distress, awake alert and oriented.. HEENT: Normocephalic. Neck is supple. Pupils reactive. Nostrils clear. Oral cavity is moist. Ears reveal no drainage. Neck reveals no JVD, carotid bruits, or thyromegaly. CHEST EXAMINATION: Trachea is central. Symmetrical expansion. Lung goldman clear to auscultation and percussion. CARDIAC: Normal S1, S2 with no gallops. No murmurs Chest wall tenderness with palpation. ABDOMEN: Soft. Bowel sounds normal. No organomegaly. No abdominal bruits. Extremities: reveal no edema. No clubbing or cyanosis Neurologically awake, alert, oriented x3 with well-coordinated movements. No focal deficits noted Skin: No rash or skin lesions. Psychiatric: Coperative. Nonsuicidal Musculoskeletal: No joint swelling or deformity. Normal range of motion. Results CBC & Chem 7: 11/25/20 06:29 11/25/20 06:29 Labs: Abnormal Lab Results - Last 24 Hours (Table) 11/24/20 11/24/20 11/24/20 Range/Units 15:23 15:23 16:07 RBC (4.10-5.20) X 10*6/uL Hgb (12.0-15.0) g/dL Hct (37.2-46.3) % PT 24.8 H (9.0-12.0) sec INR 2.6 H (<1.2) Carbon Dioxide (22-30) mmol/L BUN 18 H (7-17) mg/dL Glucose 114 H (74-99) mg/dL Urine Appearance Cloudy H (Clear) Urine Protein 1+ H (Negative) Urine Ketones 1+ H (Negative) Ur Leukocyte Esterase Moderate H (Negative) Urine WBC 16 H (0-5) /hpf Ur Squamous Epith Cells 9 H (0-4) /hpf Urine Bacteria Many H (None) /hpf Urine Mucus Rare H (None) /hpf 11/25/20 11/25/20 11/25/20 Range/Units 06:29 06:29 06:29 RBC 3.88 L (4.10-5.20) X 10*6/uL Hgb 11.7 L (12.0-15.0) g/dL Hct 35.1 L (37.2-46.3) % PT 21.5 H (9.0-12.0) sec INR 2.07 H (<1.2) Carbon Dioxide 32 H (22-30) mmol/L BUN 18 H (7-17) mg/dL Glucose (74-99) mg/dL Urine Appearance (Clear) Urine Protein (Negative) Urine Ketones (Negative) Ur Leukocyte Esterase (Negative) Urine WBC (0-5) /hpf Ur Squamous Epith Cells (0-4) /hpf Urine Bacteria (None) /hpf Urine Mucus (None) /hpf Microbiology - Last 24 Hours (Table) 11/24/20 16:07 Urine Culture - Preliminary Urine,Clean Catch Thrombosis Risk Factor Assmnt - DVT/VTE Prophylaxis DVT/VTE Prophylaxis: Pharmacologic Prophylaxis ordered - Choose All That Apply Any of the Below Risk Factors Present?: Yes Each Risk Factor Represents 3 Points: Age 75 years or older Thrombosis Risk Factor Assessment Total Risk Factor Score: 3 Thrombosis Risk Factor Assessment Level: Moderate Risk Assessment and Plan Assessment: Atypical chest pain. Resolved with nitroglycerin. Rule out ACS. Pain is also reproducible with palpation. Acute urinary tract infection Recently diagnosed with paroxysmal atrial fibrillation History of DVTs and on anticoagulant with Coumadin Hypertension Parkinson's disease Ulcerative colitis History of diverticulitis GERD Osteoarthritis History of ESBL urinary tract infection Anxiety Coumadin dosing Plan : Patient will be continued on telemetry monitoring. Serial troponin x3 -. Patient was seen by cardiology and is planning for cardiac catheterization for definitive etiology due to the fact her symptoms improved with nitroglycerin sublingual. Patient had negative stress test in February 2020. Continue with antibiotics in the form of ceftriaxone and follow-up urine culture report. Continue with home medications and further recommendations based on clinical course. Time with Patient: Greater than 30
[2020-11-26] MEDS: CARBIDOPA-LEVODOPA 25-100 MG 1 EACH TAB PO SCH ×4 (06:21→17:07)
[2020-11-26 06:43] LABS: INR 1.9 (<1.2)
[2020-11-26] MEDS: amLODIPine 2.5 MG TAB PO SCH (08:54)
[2020-11-26] MEDS: clonazePAM 0.5 MG TAB PO SCH ×2 (08:54→22:19)
[2020-11-26] MEDS: METOPROLOL TARTRATE 25 MG TAB PO SCH ×2 (08:54→19:33)
[2020-11-26] MEDS: lisinopriL 10 MG TAB PO SCH (08:54)
[2020-11-26] MEDS: CHOLECALCIFEROL 25 MCG (1000 IU) TABLET PO SCH (08:54)
[2020-11-26] MEDS: ASPIRIN 81 MG PO SCH (08:55)
[2020-11-26] MEDS: PANTOPRAZOLE 40 MG TABLET PO SCH (08:55)
[2020-11-26] MEDS: ISOSORBIDE MONONITRATE ER 15 MG TAB PO SCH (08:55)
[2020-11-26] MEDS: bisacodyL 5 MG TABLET.DR PO SCH (08:55)
[2020-11-26] MEDS: polyethylene glycoL 3350 17 GM POWD.PACK PO SCH ×2 (08:55→22:18)
--- NOTE | 2020-11-26 11:57 | P.PN ---
Subjective HISTORY OF PRESENTING ILLNESS This is a pleasant 80-year-old female past medical history significant for proximal atrial fibrillation on Coumadin, Parkinson's disease, hypertension, dyslipidemia, Chronic DVT. She follows in the office with Dr. Wong. We have been asked to see in consultation for chest pain. Atrial fibrillation was rec ently diagnosed October 2019. Patient presented to the hospital in 02/2020 with chest pain, a Lexiscan stress test was completed in 02/2020 and was normal. Patient was seen approximately 1 month ago for similar episode and echocardiogram was performed with preserved ejection fraction and she was di scharged home with outpatient follow-up with Dr. Wong. Unfortunately she has been having frequent episodes of chest pain and states this has been bothersome for her. Previously as as well as with current admission she does have very reproducible chest pain to her left lateral chest wall and with movement of her left arm however she states the pain that brought her in was more of a chest burning sensation, pressure and that it was improved with nitroglycerin given in an emergency department. She is also concerned as she has had 3 siblings from heart disease in the last year. She denies any associated shortness breath, nausea or diaphoresis. 11/26 Patient seen and examined. Patient still having some atypical chest pain. Her INR is 1.9. We have held her Coumadin. She is ALLERGIC to iodine and will need steroids for her contrast depending on when her catheterization is. REVIEW OF SYSTEMS At the time of my exam: CONSTITUTIONAL: Denies fever or chills. CARDIOVASCULAR: Denies chest pain, shortness of breath, orthopnea, PND or palpitations. RESPIRATORY: Denies cough. GASTROINTESTINAL: Denies abdominal pain, diarrhea, constipation, nausea or vomiting. MUSCULOSKELETAL: Denies myalgias. NEUROLOGIC: Denies numbness, tingling, headacbe or weakness. ENDOCRINE: Denies fatigue, weight change, polydipsia or polyurina. GENITOURINARY: Denies burning, hematuria or urgency with micturation. HEMATOLOGIC: Denies history of anemia or bleeding. PHYSICAL EXAMINATION CONSTITUTIONAL: No apparent distress. HEENT: Head is normocephalic. Pupils are equal, round. Sclerae anicteric. Mucous membranes of the mouth are moist. No JVD. No carotid bruit. CHEST EXAMINATION: Lungs are clear to auscultation. No chest wall tenderness is noted on palpation or with deep breathing. HEART EXAMINATION: Regular rate and rhythm. S1, S2 heard. No murmurs, gallops or rub. ABDOMEN: Soft, nontender. Positive bowel sounds. EXTREMITIES: 2+ peripheral pulses, no lower extremity edema and no calf tenderness. NEUROLOGIC EXAMINATION: Patient is awake, alert and oriented x3. ASSESSMENT -Chest pain, Troponin negative x 3. Very reproducible chest pain on exam however also had different chest pressure sensation which brought her in which resolved with nitro. -History of chronic DVT -Paroxysmal atrial fibrillation -History of hypertension -Parkinson's disease PLAN Patient with numerous prior admissions and frequent complaints of chest pain. Some of this is reproducible however other chest pain concerning for angina, improved with nitroglycerin and she has had prior workup with echocardiogram and stress tests which have been unrevealing. Therefore discussed definitive workup with heart catheterization and patient would like this performed as she is very concerned with family members having coronary artery disease and passing away in the last year. Hold Coumadin. Check INR tomorrow and if the normal range, possible catheterization tomorrow or Friday. Expect recurrent admissions if definitive diagnosis was not made and therefore we will proceed with heart catheterization and patient is agreeable. Patient also with iodine ALLERGY and will need steroids prior to catheterization. Objective - Vital Signs Vital signs: Vital Signs Temp 97.9 F 11/26/20 07:00 Pulse 55 L 11/26/20 07:00 Resp 19 11/26/20 08:00 BP 135/67 11/26/20 07:00 Pulse Ox 95 11/26/20 07:00 Intake & Output 11/25/20 11/26/20 11/26/20 18:59 06:59 18:59 Output Total 1250 Balance -1250 Output: Urine 1250 Other: Voiding Method Incontinent External Catheter External Catheter # Bowel Movements 1 - Labs CBC & Chem 7: 11/25/20 06:29 11/25/20 06:29 Labs: Abnormal Lab Results - Last 24 Hours (Table) 11/26/20 Range/Units 05:39 PT 19.0 H (9.0-12.0) sec INR 1.9 H (<1.2) Microbiology - Last 24 Hours (Table) 11/24/20 16:07 Urine Culture - Preliminary Urine,Clean Catch Gram Neg Bacilli
[2020-11-26] MEDS: SODIUM CHLORIDE 0.9% 1,000 ML IV SCH (15:36)
--- NOTE | 2020-11-26 17:06 | PN ---
PROGRESS NOTE DATE OF SERVICE: 11/26/2020 REASON FOR FOLLOWUP: Urinary tract infection. INTERVAL HISTORY: The patient is currently afebrile. The patient is breathing comfortably. Still complaining of some chest pain. The patient suprapubic pain has decreased in intensity. No shortness of breath. No abdominal pain or diarrhea. PHYSICAL EXAMINATION: Blood pressure 107/58, pulse of 56, temperature 98.5. She is 94% on room air. General description: The patient is an elderly female lying in bed in no distress. Respiratory system: Unlabored breathing, clear to auscultation anteriorly. Heart S1, S2. Regular rate and rhythm. ABDOMEN: Soft, no tenderness. LABS: Hemoglobin 11.7, white count 5.7. BUN of 18, creatinine 0.63. DIAGNOSTIC IMPRESSION AND PLAN: Patient with recurrent urinary tract infection, urine showing a Gram-negative. The patient clinically responded to Rocephin to continue while waiting for the sensitivity to finalize. Continue supportive care. MMODL / IJN: [id number] /
[2020-11-26] MEDS ORDERED: WARFARIN 3 MG TAB PO ONE (18:00)
[2020-11-26] MEDS ORDERED: ALPRAZolam 0.5 MG TAB PO PRN (21:17)
[2020-11-26] MEDS ORDERED: ALPRAZolam 0.25 MG TAB PO PRN (21:17)
[2020-11-26] MEDS ORDERED: SODIUM CHLORIDE 0.9% 1,000 ML in EMPTY BAG 1 BAG IV ONE (21:17)
[2020-11-26] MEDS ORDERED: NITROGLYCERIN SL TABS 0.4 MG TAB SUBLINGUAL PRN (21:17)
[2020-11-26] MEDS: CARBIDOPA-LEVODOPA ER 50-200MG 1 EACH TABLET.ER PO SCH (22:18)
[2020-11-26] MEDS: ATORVASTATIN 40 MG TAB PO SCH (22:18)
[2020-11-26] MEDS: NON FORMULARY DRUG (Mirabegron [Myrbetriq] 25 MG Tab.Er.24h) PO SCH (22:19)
[2020-11-26] MEDS: MELATONIN 5 MG TABLET PO SCH (22:19)
--- NOTE | 2020-11-27 02:09 | P.PN ---
Subjective Progress Note Date: 11/26/20 Patient is a 80-year-old female with a known history of hypertension, atrial fibrillation, Parkinson's disease, history of CVA/TIA, history of DVT, ulcerative colitis, anxiety, ESBL UTI and other multiple medical problems presents to ER due to complaints of chest pain.. Patient is currently resides the [facility] on the [place]. Approximately 2 hours prior to arrival patient had left-sided chest pain radiating to her left arm. Chest pain is similar to her previous admission. Pain is reproducible upon palpation. Associated shortness of breath. Patient states that her symptoms improved with nitroglycerin sublingual tablets. No complaints of cough or sputum production. No headache or dizziness or lightheadedness. No dysuria or hematuria. No fever no chills. Patient had Lexiscan stress test in February 2020 was normal. Chest x-ray showed no acute cardiopulmonary process EKG showed normal sinus rhythm Laboratory showed WBC 5.8 hemoglobin 13.1 and platelets 229 INR 2.6 Troponin x3 - BNP 249 UA showed cloudy with moderate leukocytes trace with elevated WBCs. 11/26/2020 Patient is currently lying in bed. Still complains of chest pain. No fever no chills. No cough or sputum production. Cardiology is planning for catheterization tomorrow. Urine culture showed E. coli. ESBL. Ceftriaxone will be discontinued and will be started on ertapenem. ID is on board. Current medications reviewed. Objective - Vital Signs Vital signs: Vital Signs Temp 97.5 F L 11/26/20 20:00 Pulse 61 11/26/20 20:00 Resp 16 11/26/20 20:00 BP 153/75 11/26/20 20:00 Pulse Ox 95 11/26/20 20:00 Intake & Output 11/26/20 11/26/20 11/27/20 06:59 18:59 06:59 Output Total 1250 100 Balance -1250 -100 Output: Urine 1250 100 Other: Voiding Method Incontinent External Catheter Incontinent External Catheter External Catheter # Voids 3 - Exam PHYSICAL EXAMINATION: Patient is lying in the bed comfortably, no acute distress, awake alert and oriented.. HEENT: Normocephalic. Neck is supple. Pupils reactive. Nostrils clear. Oral cavity is moist. Ears reveal no drainage. Neck reveals no JVD, carotid bruits, or thyromegaly. CHEST EXAMINATION: Trachea is central. Symmetrical expansion. Lung goldman clear to auscultation and percussion. CARDIAC: Normal S1, S2 with no gallops. No murmurs Chest wall tenderness with palpation. ABDOMEN: Soft. Bowel sounds normal. No organomegaly. No abdominal bruits. Extremities: reveal no edema. No clubbing or cyanosis Neurologically awake, alert, oriented x3 with well-coordinated movements. No focal deficits noted Skin: No rash or skin lesions. Psychiatric: Coperative. Nonsuicidal Musculoskeletal: No joint swelling or deformity. Normal range of motion. - Labs CBC & Chem 7: 11/25/20 06:29 11/25/20 06:29 Labs: Abnormal Lab Results - Last 24 Hours (Table) 11/26/20 Range/Units 05:39 PT 19.0 H (9.0-12.0) sec INR 1.9 H (<1.2) Microbiology - Last 24 Hours (Table) 11/24/20 16:07 Urine Culture - Final Urine,Clean Catch Escherichia coli Assessment and Plan Assessment: Atypical chest pain. Resolved with nitroglycerin. Ruled out ACS. Pain is also reproducible with palpation. Acute urinary tract infection with eSBL e.coli Recently diagnosed with paroxysmal atrial fibrillation History of DVTs and on anticoagulant with Coumadin Hypertension Parkinson's disease Ulcerative colitis History of diverticulitis GERD Osteoarthritis History of ESBL urinary tract infection Anxiety Coumadin dosing Plan : Patient will be continued on telemetry monitoring. Serial troponin x3 -. Patient was seen by cardiology and is planning for cardiac catheterization for definitive etiology due to the fact her symptoms improved with nitroglycerin sublingual. Patient had negative stress test in February 2020. Continue with antibiotics. Id is following. . Continue with home medications and further recommendations based on clinical course. Time with Patient: Greater than 30
[2020-11-27] MEDS: CARBIDOPA-LEVODOPA 25-100 MG 1 EACH TAB PO SCH ×3 (05:39→13:35)
[2020-11-27] MEDS ORDERED: ASPIRIN 325 MG TAB PO ONE (06:00)
[2020-11-27 06:21] LABS: INR 1.6 (<1.2); Prothrombin Time 16.4 sec (9.0-12.0)
[2020-11-27] MEDS ORDERED: HEPARIN SODIUM,PORCINE 2,500 UNIT in SODIUM CHLORIDE 0.9% 250 ML IRRIGATION PRN (07:00)
[2020-11-27] MEDS ORDERED: HEPARIN SODIUM,PORCINE 10,000 UNIT in SODIUM CHLORIDE 0.9% 1,000 ML IRRIGATION PRN (07:00)
[2020-11-27] MEDS ORDERED: IV FLUID CONTINUATION 1,000 ML IV ONE (07:56)
[2020-11-27] MEDS ORDERED: fentaNYL (PF) 50 MCG/ML 2 ML AMP IVP ONE (08:20)
[2020-11-27] MEDS ORDERED: methylPREDNISolone SOD SUCCI 125 MG/2 ML VIAL IVP ONE (08:20)
[2020-11-27] MEDS ORDERED: LIDOCAINE 1% INJ 10MG/ML (20 ML MDV) SQ ONE (08:22)
[2020-11-27] MEDS ORDERED: VERAPAMIL SYRINGE (5 MG/10 ML) INTRAARTER ONE (08:24)
[2020-11-27] MEDS ORDERED: HEPARIN SODIUM 1,000 UN/ML (10ML VL) IV ONE (08:30)
[2020-11-27] MEDS ORDERED: IOPAMIDOL-370 125ML BTL INJ ONE (08:34)
[2020-11-27] MEDS ORDERED: RX INFO: IV CONTRAST WAS GIVEN 1 EACH MISC MISCELLANE PRN (08:44)
[2020-11-27] MEDS ORDERED: ISOSORBIDE MONONITRATE ER 30 MG TAB.ER.24H PO SCH (09:00)
[2020-11-27] MEDS ORDERED: ERTAPENEM 1 GM in SODIUM CHLORIDE 0.9% 50 ML IVPB SCH (09:00)
[2020-11-27 09:10] LABS: African American GFR (CKD) 99.8 (60.0-200.0); Anion Gap 4.3 mmol/L (4.00-12.00); BUN/Creat Ratio 21.67 Ratio (12.00-20.00); Calcium 9.2 mg/dL (8.7-10.3); Carbon Dioxide 30.7 mmol/L (21.6-31.8); Non-African American GFR(CKD) 86.1 (60.0-200.0); Potassium 3.9 mmol/L (3.5-5.5)
[2020-11-27 09:55] LABS: Appearance,Urine Clear (Clear); Bilirubin,Urine Negative (Negative); Blood,Urine Negative (Negative); Color,Urine Light Yellow; Glucose,Urine (UA) Negative (Negative); Ketones,Urine Negative (Negative); Leukocyte Esterase,Urine Negative (Negative); Nitrite,Urine Negative (Negative); Protein,Urine Negative (Negative); Specific Gravity,Urine 1.008 (1.001-1.035); Urobilinogen,Urine <2.0 mg/dL (<2.0)
[2020-11-27] MEDS: lisinopriL 10 MG TAB PO SCH (10:02)
[2020-11-27] MEDS: polyethylene glycoL 3350 17 GM POWD.PACK PO SCH (10:02)
[2020-11-27] MEDS: bisacodyL 5 MG TABLET.DR PO SCH (10:02)
[2020-11-27] MEDS: amLODIPine 2.5 MG TAB PO SCH (10:02)
[2020-11-27] MEDS: METOPROLOL TARTRATE 25 MG TAB PO SCH (10:03)
[2020-11-27] MEDS: CHOLECALCIFEROL 25 MCG (1000 IU) TABLET PO SCH (10:03)
[2020-11-27] MEDS: PANTOPRAZOLE 40 MG TABLET PO SCH (10:03)
[2020-11-27] MEDS: clonazePAM 0.5 MG TAB PO SCH (10:03)
[2020-11-27] MEDS: SODIUM CHLORIDE 0.9% 1,000 ML IV SCH (10:04)
--- NOTE | 2020-11-27 12:36 | CC ---
CARDIAC CATHETERIZATION REPORT PROCEDURE PERFORMED: Cardiac catheterization. HISTORY OF PRESENT ILLNESS: Mrs. Lakcey is an 80-year-old female with known history of hypertension, hyperlipidemia, paroxysmal atrial fibrillation, who had multiple admissions to the hospital with recurrent episode of chest discomfort. She had no evidence of EKG or enzyme changes. She was evaluated by Dr. Gamez and because of her recurrent symptoms, recommendation made regarding cardiac catheterization. The procedure as well as the risks and the complications were discussed with the patient who is in full understanding and agreement. PROCEDURE: Patient was brought to the [facility] in a fasting semi-sedated state after receiving fentanyl and Benadryl and achieving moderate conscious state. Using Xylocaine anesthesia and Seldinger technique a 6-Mongolian sheath was introduced in the right radial artery. Selective right and left coronary angiography performed using 5-Mongolian 3.5 bend right and left Javier catheter. Multiple views taken of the coronary arteries including hemiaxial views were obtained. Following that, 5-Mongolian tight pigtail catheter was introduced into the left ventricle and left ventricular end-diastolic pressure was calculated. Following that, catheter and sheath were removed. Hemostasis was obtained with deployment of a TR band. There was no immediate complication. Patient is returned to room in stable condition. Of note, the patient received 3500 units of intravenous heparin as well as intra-arterial verapamil. FINDINGS: Left main. This is a large-sized vessel, bifurcating into left circumflex, left anterior descending artery. Left main coronary artery has no evidence of high-grade stenosis. Left anterior descending artery. This is a large-sized vessel that tapes down the distal third, giving rise to a large diagonal branch in the mid segment. The left anterior descending artery as well as branches have no evidence of obstructive lung disease. Left circumflex. This is a nondominant vessel giving rise to 2 obtuse marginal branches. The first one is very proximal and large in caliber. The left circumflex as well as branches have no evidence of obstructive coronary artery disease. Right coronary artery. this is a large dominant vessel bifurcating into PDA and posterolateral segment branches. The PDA reaches to the inferoapical wall. The right coronary artery as well as branches have no evidence of obstructive coronary artery disease. LEFT VENTRICULOGRAM: Left ventriculogram was not performed. HEMODYNAMICS: There was no gradient across the aortic valve. The left ventricle end-diastolic pressure was 4-6 mmHg. CONCLUSION: 1. Normal coronary arteries. 2. Normal left ventricular end-diastolic pressure. RECOMMENDATION: In view of finding anatomy, I recommend continue medical therapy with aggressive coronary risk factor modifications that has been initiated. Those findings and recommendation were discussed with the patient and left a message to her daughter. She is in full understanding and agreement. MMTANNER / LIBRADON: [id number] /
[2020-11-27] MEDS ORDERED: ENOXAPARIN 80 MG/0.8 ML SYRINGE SQ SCH (14:00)
--- NOTE | 2020-11-27 14:09 | P.DS ---
Providers Date of admission: 11/27/20 09:28 Attending physician: Tim Levy Consults: 11/24/20 19:02 Consult Physician Urgent Consulting Provider: Jarocho Alas Consult Reason/Comments: acute uti, hx esbl Do you want consulting provider notified?: Yes 11/24/20 19:03 Consult Physician Urgent Consulting Provider: [facility] Consult Reason/Comments: acute chest pain Do you want consulting provider notified?: Yes Primary care physician: Jesus Cooney Hospital Course: Diagnoses: Recurrent admissions with chest pain. Underwent cardiac cath on 11/27 showing normal coronary arteries Recurrent UTI with ESBL E. coli. Repeat urine analysis is negative. History of atrial fibrillation on Coumadin History of DVT and Coumadin History of Parkinson's disease history of Ulcerative colitis History of diverticulitis GERD Osteoarthritis History of ESBL urinary tract infection Anxiety Hospital course: Patient is a 80-year-old female with a known history of hypertension, atrial fibrillation, Parkinson's disease, history of CVA/TIA, history of DVT, ulcerative colitis, anxiety, ESBL UTI and other multiple medical problems presents to ER due to complaints of chest pain. because of recurrent admission for chest pain over the last 2 months this is the third admission [employer] decided to do cardiac cath on 11/27 which was showing normal coronary arteries Her Coumadin was held due to cardiac cath, her INR is 1.6. Extra 5 mg dose of Coumadin is provided today. Lovenox bridge and is a started which should be stopped once her INR is 2 or higher. Patient is going to [facility], with recommendation to check her INR every 24- 48 hours, stopping Lovenox and continue with Coumadin if her INR is 2.0 or higher. Patient with no chest pain, no dyspnea, no abdominal pain or nausea vomiting. No fever. Patient was cleared for discharge by cvicu nurse Also patient was suspicion to have UTI, urine culture grew ESBL E. coli, repeat urine analysis is negative. Patient was treated with Invanz by ID team, however this was stopped upon discharge for negative UA With no fever or leukocytosis. No need for antibiotics upon discharge per ID team Patient was cleared for discharge by ID team Problems and management plan were discussed with the patient and he verbalized understanding and acceptance Patient was found stable and can be discharged home however he needs follow-up as an outpatient. Patient was instructed to follow up with PCP Dr. Cooney within one week and patient agrees Also patient was instructed to follow up with Dr. Wong and 2 weeks and she agrees Physical exam Gen: patient is a AAOx3, no distress CVS: S1-S2, RRR, no murmur Lungs: B/L CTA, no wheezing Abdomen: soft, no distention, no tenderness, positive bowel sounds Extremity: no leg edema or induration Time spent more than 35 minutes Patient Condition at Discharge: Stable Plan - Discharge Summary Discharge Rx Participant: No New Discharge Prescriptions: New Isosorbide Mononitrate ER [Imdur] 30 mg PO DAILY tab.er.24h Continue Lisinopril [Zestril] 10 mg PO DAILY Nitroglycerin Sl Tabs [Nitrostat] 0.4 mg SL Q5M PRN PRN Reason: Chest Pain Atorvastatin [Lipitor] 40 mg PO HS amLODIPine [Norvasc] 2.5 mg PO DAILY Metoprolol Tartrate [Lopressor] 25 mg PO Q12H Discontinued Isosorbide Mononitrate ER [Imdur] 15 mg PO DAILY No Action Omeprazole [PriLOSEC] 20 mg PO DAILY@0600 bisacodyL [Dulcolax] 5 mg PO DAILY Carbidopa-Levodopa 25-100 mg [Sinemet 25-100 mg] 1 tab PO QID@05,09,13,17 Acetaminophen Tab [Tylenol] 650 mg PO Q4H PRN #1 tablet PRN Reason: Pain Carbidopa/Levodopa [Sinemet CR 50-200 mg] 1 tab PO HS@2100 Melatonin 10 mg PO HS Mirabegron [Myrbetriq] 25 mg PO HS Warfarin [Coumadin] 1 mg PO MOTH@1700 Warfarin [Coumadin] 2 mg PO SUTUWEFRSA@1700 Polyethylene Glycol 3350 [Miralax] 17 gm PO BID Cholecalciferol [Vitamin D3 (25 Mcg = 1000 Iu)] 50 mcg PO DAILY clonazePAM 0.25 mg PO BID traMADol HCL [Ultram] 50 mg PO Q8H PRN #9 tab PRN Reason: Pain Mag Hydrox/Aluminum Hyd/Simeth [Mylanta Maximum Strength Liq] 10 ml PO TID PRN PRN Reason: upset stomach Discharge Medication List Omeprazole [PriLOSEC] 20 mg PO DAILY@0600 01/11/19 [History] bisacodyL [Dulcolax] 5 mg PO DAILY 02/19/19 [History] Carbidopa-Levodopa 25-100 mg [Sinemet 25-100 mg] 1 tab PO QID@05,09,13,17 07/30/19 [History] Acetaminophen Tab [Tylenol] 650 mg PO Q4H PRN #1 tablet 08/23/19 [Rx] Carbidopa/Levodopa [Sinemet CR 50-200 mg] 1 tab PO HS@2100 10/15/19 [History] Lisinopril [Zestril] 10 mg PO DAILY 10/15/19 [History] Melatonin 10 mg PO HS 10/15/19 [History] Mirabegron [Myrbetriq] 25 mg PO HS 10/15/19 [History] Warfarin [Coumadin] 1 mg PO MOTH@1700 10/15/19 [History] Warfarin [Coumadin] 2 mg PO SUTUWEFRSA@1700 02/24/20 [History] Atorvastatin [Lipitor] 40 mg PO HS 10/19/20 [History] Cholecalciferol [Vitamin D3 (25 Mcg = 1000 Iu)] 50 mcg PO DAILY 10/19/20 [History] Nitroglycerin Sl Tabs [Nitrostat] 0.4 mg SL Q5M PRN 10/19/20 [History] Polyethylene Glycol 3350 [Miralax] 17 gm PO BID 10/19/20 [History] traMADol HCL [Ultram] 50 mg PO Q8H PRN #9 tab 10/21/20 [Rx] amLODIPine [Norvasc] 2.5 mg PO DAILY 11/20/20 [History] Mag Hydrox/Aluminum Hyd/Simeth [Mylanta Maximum Strength Liq] 10 ml PO TID PRN 11/24/20 [History] Metoprolol Tartrate [Lopressor] 25 mg PO Q12H 11/24/20 [History] clonazePAM 0.25 mg PO BID 11/24/20 [History] Isosorbide Mononitrate ER [Imdur] 30 mg PO DAILY tab.er.24h 11/27/20 [Rx] Follow up Appointment(s)/Referral(s): Lottie Wong MD [STAFF PHYSICIAN] - 2 Weeks Jesus Cooney MD [Primary Care Provider] - 1-2 days Activity/Diet/Wound Care/Special Instructions: Heart healthy diet Activity is restricted till you see your doctor Recommended to continue with Coumadin with Lovenox bridging, while checking INR every 24-48 hours Stop Lovenox if INR is 2.0 or higher, and continue with Coumadin Discharge Disposition: TRANSFER TO SNF/ECF
--- NOTE | 2020-11-27 14:21 | XR ---
EXAMINATION TYPE: XR chest 1V DATE OF EXAM: 11/27/2020 HISTORY: Shortness of breath. COMPARISON: 11/24/2020 TECHNIQUE: Single view of the chest is submitted. FINDINGS: Demonstrated are scattered senescent parenchymal change. There is no evidence for focal infiltrate. The heart is stable. Hilar and mediastinal structures are within normal limits. Degenerative changes are seen of the dorsal spine. IMPRESSION: 1. Chronic changes without evidence for acute pulmonary disease.
--- NOTE | 2020-11-27 14:58 | PN ---
PROGRESS NOTE DATE OF SERVICE: 11/27/2020. REASON FOR FOLLOW UP: ESBL E coli urinary tract infection. INTERVAL HISTORY: The patient is currently afebrile. The patient mentioned overall feeling better. She is breathing comfortably. Chest pain is resolved. Abdominal pain has improved. No nausea, vomiting or diarrhea. PHYSICAL EXAMINATION: Blood pressure 113/59, pulse of 52, temperature 98.5. She is 92% on room air. General description: The patient is an elderly female lying in bed in no distress. Respiratory system: Unlabored breathing, clear to auscultation anteriorly. Heart S1, S2. Regular rate and rhythm. ABDOMEN: Soft, no tenderness. LABS: Repeat urine is negative. BUN of 13, creatinine 0.6. DIAGNOSTIC IMPRESSION AND PLAN: Patient with positive urine culture with ESBL E coli, more likely contaminant as the patient clinically improved with Rocephin therapy only. The patient UA is negative and urine symptoms resolved. Recommend no antibiotic on discharge. MMODL / IJN: [id number] /
[2020-11-27] MEDS ORDERED: WARFARIN 1 MG TAB PO SCH (16:00)
[2020-11-27 16:07] VITALS: BP 117/64; PULSE 61; RESP 16; TEMP 97.5
[2020-11-27] MEDS ORDERED: WARFARIN 5 MG TAB PO ONE ×2 (18:00)
[2020-11-28] MEDS ORDERED: ASPIRIN 81 MG PO SCH (09:00)
[2020-11-28] MEDS ORDERED: WARFARIN 2 MG TAB PO SCH (16:00)
== END 2020-11-27 16:35 | DRG 287 ==
LOC: EC 14:58 → 6NMEDSUR 19:01 → OBSVTOIN 11-27 09:28
PROVIDERS: ADMIT Hospitalist; ATTEND Hospitalist
PROC: B2111ZZ Fluoroscopy of Multiple Coronary Arteries using Low Osmolar Contrast (ICD-10-PCS; 2020-11-27)
PROC: 4A023N7 Measurement of Cardiac Sampling and Pressure, Left Heart, Percutaneous Approach (ICD-10-PCS; principal; 2020-11-27 11:00)
DX: R07.89 Other chest pain (principal); N39.0 Urinary tract infection, site not specified; K51.90 Ulcerative colitis, unspecified, without complications; Z16.12 Extended spectrum beta lactamase (ESBL) resistance; K57.92 Diverticulitis of intestine, part unspecified, without perforation or abscess without bleeding; E78.5 Hyperlipidemia, unspecified; G20 Parkinson's disease; I11.0 Hypertensive heart disease with heart failure; I50.9 Heart failure, unspecified; I48.0 Paroxysmal atrial fibrillation; Z79.01 Long term (current) use of anticoagulants; Z91.041 Radiographic dye allergy status; Z20.822 Contact with and (suspected) exposure to COVID-19; Z87.440 Personal history of urinary (tract) infections; F41.9 Anxiety disorder, unspecified; Z86.718 Personal history of other venous thrombosis and embolism; Z86.73 Personal history of transient ischemic attack (TIA), and cerebral infarction without residual deficits; B96.20 Unspecified Escherichia coli [E. coli] as the cause of diseases classified elsewhere; K21.9 Gastro-esophageal reflux disease without esophagitis; M19.90 Unspecified osteoarthritis, unspecified site; K52.9 Noninfective gastroenteritis and colitis, unspecified; J45.909 Unspecified asthma, uncomplicated; Z90.710 Acquired absence of both cervix and uterus; Z79.899 Other long term (current) drug therapy; Z82.5 Family history of asthma and other chronic lower respiratory diseases; Z82.49 Family history of ischemic heart disease and other diseases of the circulatory system; Z80.0 Family history of malignant neoplasm of digestive organs; Z96.1 Presence of intraocular lens
CPT/HCPCS: 36415; 71045; 71046; 80048; 80053; 81001; 81003; 83690; 83735; 83880; 84484; 85025; 85610; 85730; 87077; 87086; 87186; 87635; 93005; 93458; 99285

== ENCOUNTER 2021-01-08 20:52 | Inpatient (IN) | payer MEDICARE, OTHER ==
--- NOTE | 2021-01-08 22:32 | ED ---
Chest Pain HPI - General Chief Complaint: Chest Pain Stated Complaint: Arm Pain Source: patient, EMS, RN notes reviewed, old records reviewed Mode of arrival: EMS Limitations: altered mental status, physical limitation - History of Present Illness Initial Comments: This is an 80-year-old female presented today for evaluation patient Dese for multiple complaints chest pain swollen legs Luis lower extremities slow heart rate and symptoms of urinary tract infection. Patient states all the symptoms are confounding, she does not feel well feels weak MD Complaint: chest pain -: days(s) Onset: during rest Pain Location: substernal, left chest Pain Radiation: none Severity: moderate Severity scale (1-10): 4 Quality: aching Consistency: constant Improves With: nothing Worsens With: nothing Anginal Symptoms: nausea, dyspnea Other Symptoms: palpitations Treatments Prior to Arrival: none - Related Data Home Medications Medication Instructions Recorded Confirmed Omeprazole [PriLOSEC] 20 mg PO DAILY@0601/11/19 01/08/21 bisacodyL [Dulcolax] 5 mg PO DAILY@89902/19/19 01/08/21 Carbidopa-Levodopa 25-100 mg 1 tab PO QID 07/30/19 01/08/21 [Sinemet 25-100 mg] Carbidopa/Levodopa [Sinemet CR 1 tab PO HS@209910/15/19 01/08/21 50-200 mg] Lisinopril [Zestril] 10 mg PO DAILY@89910/15/19 01/08/21 Melatonin 10 mg PO HS@209910/15/19 01/08/21 Mirabegron [Myrbetriq] 25 mg PO HS@209910/15/19 01/08/21 Warfarin [Coumadin] 1 mg PO MOTH@169910/15/19 01/08/21 Warfarin [Coumadin] 2 mg PO SUTUWEFRSA@169902/24/20 01/08/21 Atorvastatin [Lipitor] 40 mg PO HS@209910/19/20 01/08/21 Cholecalciferol [Vitamin D3 (25 50 mcg PO DAILY@0900 10/19/20 01/08/21 Mcg = 1000 Iu)] Nitroglycerin Sl Tabs [Nitrostat] 0.4 mg SL Q5M PRN 10/19/20 01/08/21 Polyethylene Glycol 3350 [Miralax] 17 gm PO BID@0900,209910/19/20 01/08/21 amLODIPine [Norvasc] 2.5 mg PO DAILY@0900 11/20/20 01/08/21 Mag Hydrox/Aluminum Hyd/Simeth 10 ml PO TID PRN 11/24/20 01/08/21 [Mylanta Maximum Strength Liq] Metoprolol Tartrate [Lopressor] 25 mg PO BID@0900,209911/24/20 01/08/21 clonazePAM 0.25 mg PO BID@0900,209911/24/20 01/08/21 Isosorbide Mononitrate ER [Imdur] 30 mg PO DAILY@0900 01/08/21 01/08/21 Previous Rx's Medication Instructions Recorded Acetaminophen Tab [Tylenol] 650 mg PO Q4H PRN #1 tablet 08/23/19 traMADol HCL [Ultram] 50 mg PO Q8H PRN #4 tab 11/27/20 Allergies Allergy/AdvReac Type Severity Reaction Status Date / Time Influenza Virus Vaccines Allergy Swelling Verified 01/08/21 23:40 Penicillins Allergy Anaphylaxis Verified 01/08/21 23:40 Iodinated Contrast Media AdvReac Chest Pain Verified 01/08/21 23:40 [Iodinated Contrast- Oral and IV Dye] Review of Systems ROS Statement: Those systems with pertinent positive or pertinent negative responses have been documented in the HPI. ROS Other: All systems not noted in ROS Statement are negative. EKG Findings - EKG Comments: EKG Findings:: EKG is sinus bradycardia 55 DC 152 QRS 88 QTc 403 Past Medical History Past Medical History: Asthma, Heart Failure, CVA/TIA, Deep Vein Thrombosis (DVT), GERD/Reflux, Hypertension, Memory Impairment, Musculoskeletal Disorder, Neurologic Disorder, Osteoarthritis (OA) Additional Past Medical History / Comment(s): Ulcerative colitis, diverticulitis, parkinson's disease, CVA which pt was unaware of having-showed on cat scan, several DVTs bilateral legs and pt states since she has had intermittent bilateral ankle edema, thrombophlebitis, PE-pt cannot recall laterallity, generalized arthritis, urinary leakage, UTIs, shingles x 2 History of Any Multi-Drug Resistant Organisms: ESBL Date of last positivie culture/infection: 09/12/20 MDRO Source:: URINE ESBL Past Surgical History: Appendectomy, Cholecystectomy, Hysterectomy, Orthopedic Surgery, Tubal Ligation Additional Past Surgical History / Comment(s): L shoulder injury with surgery to repair, removals of DVTs bilateral legs, cataract removal/lens implants, colonoscopies, hemorrohoids surgery Past Anesthesia/Blood Transfusion Reactions: Postoperative Nausea & Vomiting (PONV) Additional Past Anesthesia/Blood Transfusion Reaction / Comment(s): Pt received blood with hysterectomy without reaction. Past Psychological History: Anxiety Smoking Status: Never smoker Past Alcohol Use History: None Reported Past Drug Use History: None Reported - Past Family History Father Family Medical History: Asthma, Cancer, COPD Additional Family Medical History / Comment(s): Gallbladder cancer Mother Family Medical History: Myocardial Infarction (AR) Additional Family Medical History / Comment(s): Mother of a AR at the age of 48 yrs. Sister(s) Additional Family Medical History / Comment(s): Sister of a blood clot at age 38 yrs-pt cannot recall specifics. General Exam Limitations: altered mental status, physical limitation General appearance: alert, in no apparent distress Head exam: Present: atraumatic, normocephalic, normal inspection Eye exam: Present: normal appearance, PERRL, EOMI. Absent: scleral icterus, conjunctival injection, periorbital swelling ENT exam: Present: normal exam, mucous membranes moist Neck exam: Present: normal inspection. Absent: tenderness, meningismus, lymphadenopathy Respiratory exam: Present: normal lung sounds bilaterally. Absent: respiratory distress, wheezes, rales, rhonchi, stridor Cardiovascular Exam: Present: normal rhythm, bradycardia, normal heart sounds. Absent: systolic murmur, diastolic murmur, rubs, gallop, clicks GI/Abdominal exam: Present: soft, normal bowel sounds. Absent: distended, tenderness, guarding, rebound, rigid Extremities exam: Present: normal inspection, full ROM, normal capillary refill. Absent: tenderness, pedal edema, joint swelling, calf tenderness Back exam: Present: normal inspection Neurological exam: Present: alert, oriented X3, CN II-XII intact Psychiatric exam: Present: normal affect, normal mood Skin exam: Present: warm, dry, intact, normal color. Absent: rash Course Vital Signs 01/08/21 01/08/21 21:01 21:08 Temperature 98.3 F Pulse Rate 58 L Pulse Rate [ 56 L Under Seal Operator ] Respiratory 18 Rate Blood Pressure 138/61 O2 Sat by Pulse 95 Oximetry - Reevaluation(s) Reevaluation #1: 01/09/21 00:58 Medical records reviewed Reevaluation #2: 01/09/21 00:58 Patient still with occasional chest pain here in the ER Reevaluation #3: 01/09/21 00:58 Patient informed results questions answered Chest Pain MDM - MDM 80 female with chest pain. Patient has history of will admit for diuresis and observation. Patient also has urinary tract infection, will admit for IV antibiotics Disposition Clinical Impression: Urinary tract infection, Dehydration, Weakness, Chest pain Disposition: ADMITTED IP TO THIS HOSP Condition: Fair Is patient prescribed a controlled substance at d/c from ED?: No Referrals: Jesus Cooney MD [Primary Care Provider] - 1-2 days
--- NOTE | 2021-01-08 22:42 | XR ---
EXAMINATION TYPE: XR chest 2V DATE OF EXAM: 01/08/2021 COMPARISON: 11/27/2020 HISTORY: Chest pain TECHNIQUE: FINDINGS: There is no heart failure nor confluent pneumonic infiltrate. Costophrenic angles are clear . Heart size is normal. Bony thorax is intact. There are chest leads. IMPRESSION: No active cardiopulmonary disease. Normal heart. No change.
[2021-01-08 23:12] LABS: Basophils # (A) 0.1 k/uL (0-0.2); Basophils % (A) 1 %; Eosinophils # (A) 0.2 k/uL (0-0.7); Eosinophils % (A) 3 %; HCT 37.4 % (34.0-46.0); HGB 13.1 gm/dL (11.4-16.0); Lymphocytes # (A) 2.5 k/uL (1.0-4.8); Lymphocytes % (A) 34 %; MCH 30.7 pg (25.0-35.0); MCV 87.7 fL (80.0-100.0); Mean Platelet Volume 7.8; Monocytes # (A) 0.4 k/uL (0-1.0); Monocytes % (A) 5 %; Neutrophils # (A) 4.1 k/uL (1.3-7.7); Neutrophils % (A) 55 %; Platelet Count 231 k/uL (150-450); RBC 4.27 m/uL (3.80-5.40); RDW 13.2 % (11.5-15.5); WBC 7.3 k/uL (3.8-10.6)
[2021-01-08 23:26] LABS: ALT <6 U/L (4-34); AST 21 U/L (14-36); African American GFR (CKD) >90 (>60 ml/min/1.73 sqM); Albumin 3.6 g/dL (3.5-5.0); Alkaline Phosphatase 60 U/L (38-126); Anion Gap 6 mmol/L; Blood Urea Nitrogen 20 mg/dL (7-17); Calcium 9.1 mg/dL (8.4-10.2); Carbon Dioxide 29 mmol/L (22-30); Chloride 106 mmol/L (98-107); Creatine Kinase 34 U/L (30-135); Glucose 100 mg/dL (74-99); INR 2.1 (<1.2); Lipase 57 U/L (23-300); Non-African American GFR(CKD) 89 (>60 ml/min/1.73 sqM); Partial Thromboplastin Time 23.4 sec (22.0-30.0); Potassium 4.1 mmol/L (3.5-5.1); Prothrombin Time 20.4 sec (9.0-12.0); Sodium 141 mmol/L (137-145); Total Bilirubin 0.6 mg/dL (0.2-1.3); Total Protein 6.2 g/dL (6.3-8.2)
[2021-01-09] MEDS ORDERED: MORPHINE SULFATE 4 MG/ML SYRINGE IV PRN (00:55)
[2021-01-09] MEDS ORDERED: ONDANSETRON 4 MG/2 ML VIAL IVP PRN (00:55)
[2021-01-09] MEDS ORDERED: NALOXONE 0.4 MG/ML 1 ML VIAL IV PRN (00:55)
[2021-01-09 01:08] LABS: Appearance,Urine Cloudy (Clear); Bacteria,Urine Rare /hpf; Bilirubin,Urine Negative (Negative); Blood,Urine Negative (Negative); Color,Urine Yellow; Glucose,Urine (UA) Negative (Negative); Ketones,Urine Negative (Negative); Leukocyte Esterase,Urine Negative (Negative); Mucus,Urine Rare /hpf; Nitrite,Urine Negative (Negative); PH, Urine 7.5 (5.0-8.0); Protein,Urine Negative (Negative); RBC,Urine 2 /hpf (0-5); Specific Gravity,Urine 1.015 (1.001-1.035); Squamous Epithelial Cell,Urine 1 /hpf (0-4); WBC,Urine 2 /hpf (0-5)
[2021-01-09] MEDS ORDERED: FUROSEMIDE 10 MG/ML 4 ML VIAL IV ONE (01:15)
[2021-01-09] MEDS ORDERED: MAG HYDROX/AL HYDROX/SIMETH 30 ML CUP PO PRN (08:59)
[2021-01-09] MEDS ORDERED: FUROSEMIDE 10 MG/ML 4 ML VIAL IV SCH (09:00)
[2021-01-09] MEDS: amLODIPine 2.5 MG TAB PO SCH (09:46)
[2021-01-09] MEDS: polyethylene glycoL 3350 17 GM POWD.PACK PO SCH ×2 (09:46→20:56)
[2021-01-09] MEDS: clonazePAM 0.5 MG TAB PO SCH ×2 (09:46→20:54)
[2021-01-09] MEDS: CHOLECALCIFEROL 25 MCG (1000 IU) TABLET PO SCH (09:47)
[2021-01-09] MEDS: METOPROLOL TARTRATE 25 MG TAB PO SCH ×2 (09:47→20:55)
[2021-01-09] MEDS: traMADol 50 MG TAB PO PRN (09:47)
[2021-01-09] MEDS: ISOSORBIDE MONONITRATE ER 30 MG TAB.ER.24H PO SCH (09:47)
[2021-01-09] MEDS: CARBIDOPA-LEVODOPA 25-100 MG 1 EACH TAB PO SCH ×3 (09:47→18:08)
[2021-01-09] MEDS: lisinopriL 10 MG TAB PO SCH (09:47)
[2021-01-09] MEDS: bisacodyL 5 MG TABLET.DR PO SCH (09:47)
[2021-01-09] MEDS: ACETAMINOPHEN TAB 325 MG TAB PO PRN (12:39)
--- NOTE | 2021-01-09 16:59 | CT ---
EXAMINATION TYPE: CT abdomen pelvis wo con DATE OF EXAM: 01/09/2021 COMPARISON: 10/18/2019 HISTORY: abdominal pain CT DLP: 699 mGycm Automated exposure control for dose reduction was used. Images obtained from the diaphragm to the floor the pelvis without contrast. The lung bases are clear of consolidation. There is minimal subsegmental atelectasis. Heart size is n ormal. There is no pericardial effusion. There is small hiatal hernia. The liver spleen stomach pancr eas appear intact. The bile ducts are not dilated. Gallbladder is not seen. There is no adrenal mass. There are apparent bilateral several renal parapelvic cysts that measure up to 2 cm. There is 2 cm cortical cyst posterior right kidney. The ureters are not dilated. There is n o retroperitoneal adenopathy. The bladder distends smoothly. There is no inguinal hernia. There is no free fluid in the pelvis. I see no pelvic mass. There is hysterectomy. There is no mesenteric edema. There is no ascites or free air. There is no bowel obstruction. The lum bar vertebra have normal alignment. There is some degenerative disc space narrowing at L4-5 and L5-S1 . The bony pelvis is intact. Hip joints appear intact. There is no hip dysplasia. Appendix is not see n. There is no sign of thickened appendix. IMPRESSION: No acute abnormality of the abdomen pelvis. There is clearing of the small pleural effusions and most of the atelectasis compared to old exam. Small renal cysts. No renal obstruction.
[2021-01-09] MEDS: WARFARIN 2 MG TAB PO SCH (18:52)
[2021-01-09] MEDS: MELATONIN 5 MG TABLET PO SCH (20:54)
[2021-01-09] MEDS: FUROSEMIDE 10 MG/ML 2 ML VIAL IV SCH (20:55)
[2021-01-09] MEDS: ATORVASTATIN 40 MG TAB PO SCH (20:55)
[2021-01-09] MEDS: CARBIDOPA-LEVODOPA ER 50-200MG 1 EACH TABLET.ER PO SCH (20:55)
[2021-01-09] MEDS: PATIENT'S OWN (Mirabegron [Myrbetriq] 25 MG Tab.Er.24h) PO SCH (20:56)
--- NOTE | 2021-01-09 23:44 | P.HPIM ---
History of Present Illness H&P Date: 01/09/21 Chief Complaint: weakness Patient is a 80-year-old female with a known history of CVA/TIA, history of multiple DVT, memory impairment, ulcerative colitis, history of diverticulitis, Parkinson's disease, bilateral lower extremity edema, osteoarthritis and recurrent UTIs, anxiety was brought to hospital by EMS due to complaints of bilateral lower committee swelling and chest pain and generalized weakness. Patient is also complaining of left lower quadrant abdominal pain. Denies any hematemesis or melena. No nausea vomiting or diarrhea. Chest x-ray showed no active cardiopulmonary disease. EKG showed normal sinus rhythm. Laboratory data showed INR 2.1 BUN 20 and creatinine 0.54 troponin x3 - proBNP 382 Urinalysis showed cloudy with less than 5 WBCs and RBCs. Coronavirus PCR not detected, Patient was discharged from the hospital on 11/27/2020. Admitted for recurrent chest pain and cardiac catheterization showed normal coronaries at that time. Urine culture showed ESBL E. coli but the repeat urinalysis is negative. ID recommends no further antibiotic course during previous admission. Review of Systems Constitutional: Patient denies any fever or chills . + generalized weakness or weight loss. Abdomen: Patient denied nausea vomiting and diarrhea. LLQ abdominal pain. Cardiovascular: Patient denies any chest pain or short of breath no palpitations. Respiratory: patient denied any cough or sputum production. No shortness of breath, leg swelling Neurologic: Patient denied any numbness or tingling headache. Musculoskeletal: Patient denies any complaints of joint swelling or deformity. Skin: Negative Psychiatric: Negative Endocrine: No heat or cold intolerance. No recent weight gain. Genitourinary: No dysuria or hematuria. All other 14 point ROS negative except the above Past Medical History Past Medical History: Asthma, Heart Failure, CVA/TIA, Deep Vein Thrombosis (DVT), GERD/Reflux, Hypertension, Memory Impairment, Musculoskeletal Disorder, Neurologic Disorder, Osteoarthritis (OA) Additional Past Medical History / Comment(s): Ulcerative colitis, diverticulitis, parkinson's disease, CVA which pt was unaware of having-showed on cat scan, several DVTs bilateral legs and pt states since she has had intermittent bilateral ankle edema, thrombophlebitis, PE-pt cannot recall laterallity, generalized arthritis, urinary leakage, UTIs, shingles x 2 History of Any Multi-Drug Resistant Organisms: ESBL Date of last positivie culture/infection: 09/12/20 MDRO Source:: URINE ESBL Past Surgical History: Appendectomy, Cholecystectomy, Hysterectomy, Orthopedic Surgery, Tubal Ligation Additional Past Surgical History / Comment(s): L shoulder injury with surgery to repair, removals of DVTs bilateral legs, cataract removal/lens implants, colonoscopies, hemorrohoids surgery Past Anesthesia/Blood Transfusion Reactions: Postoperative Nausea & Vomiting (PONV) Additional Past Anesthesia/Blood Transfusion Reaction / Comment(s): Pt received blood with hysterectomy without reaction. Past Psychological History: Anxiety Smoking Status: Never smoker Past Alcohol Use History: None Reported Past Drug Use History: None Reported - Past Family History Father Family Medical History: Asthma, Cancer, COPD Additional Family Medical History / Comment(s): Gallbladder cancer Mother Family Medical History: Myocardial Infarction (TN) Additional Family Medical History / Comment(s): Mother of a TN at the age of 48 yrs. Sister(s) Additional Family Medical History / Comment(s): Sister of a blood clot at age 38 yrs-pt cannot recall specifics. Medications and Allergies Home Medications Medication Instructions Recorded Confirmed Type Omeprazole [PriLOSEC] 20 mg PO DAILY@59901/11/19 01/08/21 History bisacodyL [Dulcolax] 5 mg PO DAILY@89902/19/19 01/08/21 History Carbidopa-Levodopa 25-100 mg 1 tab PO QID 07/30/19 01/08/21 History [Sinemet 25-100 mg] Acetaminophen Tab [Tylenol] 650 mg PO Q4H PRN #1 tablet 08/23/19 01/08/21 Rx Carbidopa/Levodopa [Sinemet CR 1 tab PO HS@209910/15/19 01/08/21 History 50-200 mg] Lisinopril [Zestril] 10 mg PO DAILY@89910/15/19 01/08/21 History Melatonin 10 mg PO HS@209910/15/19 01/08/21 History Mirabegron [Myrbetriq] 25 mg PO HS@209910/15/19 01/08/21 History Warfarin [Coumadin] 1 mg PO MOTH@169910/15/19 01/08/21 History Warfarin [Coumadin] 2 mg PO SUTUWEFRSA@1700 02/24/20 01/08/21 History Atorvastatin [Lipitor] 40 mg PO HS@209910/19/20 01/08/21 History Cholecalciferol [Vitamin D3 (25 50 mcg PO DAILY@0910/19/20 01/08/21 History Mcg = 1000 Iu)] Nitroglycerin Sl Tabs [Nitrostat] 0.4 mg SL Q5M PRN 10/19/20 01/08/21 History Polyethylene Glycol 3350 [Miralax] 17 gm PO BID@0900,209910/19/20 01/08/21 History amLODIPine [Norvasc] 2.5 mg PO DAILY@89911/20/20 01/08/21 History Mag Hydrox/Aluminum Hyd/Simeth 10 ml PO TID PRN 11/24/20 01/08/21 History [Mylanta Maximum Strength Liq] Metoprolol Tartrate [Lopressor] 25 mg PO BID@0900,209911/24/20 01/08/21 History clonazePAM 0.25 mg PO BID@0900,209911/24/20 01/08/21 History traMADol HCL [Ultram] 50 mg PO Q8H PRN #4 tab 11/27/20 01/08/21 Rx Isosorbide Mononitrate ER [Imdur] 30 mg PO DAILY@89901/08/21 01/08/21 History Allergies Allergy/AdvReac Type Severity Reaction Status Date / Time Influenza Virus Vaccines Allergy Swelling Verified 01/08/21 23:40 Penicillins Allergy Anaphylaxis Verified 01/08/21 23:40 Iodinated Contrast Media AdvReac Chest Pain Verified 01/08/21 23:40 [Iodinated Contrast- Oral and IV Dye] Physical Exam Vitals: Vital Signs Temp Pulse Pulse Pulse Resp BP BP 01/09/21 08:00 20 01/09/21 07:00 97.5 F L 58 L 20 154/75 01/09/21 05:00 51 L 16 01/09/21 04:00 54 L 16 01/09/21 03:00 57 L 16 01/09/21 02:25 97.7 F 55 L 16 114/69 01/08/21 21:08 56 L 01/08/21 21:01 98.3 F 58 L 18 138/61 Pulse Ox 01/09/21 08:00 06/08/21 07:00 94 L 01/09/21 05:00 01/09/21 04:00 01/09/21 03:00 01/09/21 02:25 94 L 01/08/21 21:08 01/08/21 21:01 95 Intake and Output 01/08/21 01/09/21 01/09/21 22:59 06:59 14:59 Output Total 1100 Balance -1100 Output: Urine 1100 Other: Weight 69.4 kg PHYSICAL EXAMINATION: Patient is lying in the bed comfortably, no acute distress, awake alert and oriented 2-3.. HEENT: Normocephalic. Neck is supple. Pupils reactive. Nostrils clear. Oral cavity is moist. Ears reveal no drainage. Neck reveals no JVD, carotid bruits, or thyromegaly. CHEST EXAMINATION: Trachea is central. Symmetrical expansion. Lung goldman clear to auscultation and percussion. CARDIAC: Normal S1, S2 with no gallops. No murmurs ABDOMEN: Soft. Mild left lower quadrant tenderness. Bowel sounds normal. No or ganomegaly. No abdominal bruits. Extremities: Bilateral lower extremity 2+ edema.. No clubbing or cyanosis Neurologically awake, alert, oriented x2-3 with well-coordinated movements. Memory impairment. No focal deficits noted Skin: No rash or skin lesions. Psychiatric: Coperative. Could not be assisted completely. Musculoskeletal: No joint swelling or deformity. Normal range of motion. Results CBC & Chem 7: 01/08/21 22:06 01/08/21 22:06 Labs: Abnormal Lab Results - Last 24 Hours (Table) 01/08/21 01/08/21 01/08/21 Range/Units 22:06 22:06 23:46 PT 20.4 H (9.0-12.0) sec INR 2.1 H (<1.2) BUN 20 H (7-17) mg/dL Glucose 100 H (74-99) mg/dL Total Protein 6.2 L (6.3-8.2) g/dL Urine Appearance Cloudy H (Clear) Urine Bacteria Rare H (None) /hpf Urine Mucus Rare H (None) /hpf Thrombosis Risk Factor Assmnt - DVT/VTE Prophylaxis DVT/VTE Prophylaxis: Pharmacologic Prophylaxis ordered Assessment and Plan Assessment: Recurrent chest pain. Rule out ACS. Patient cardiac catheterization showed normal coronaries. Ejection fraction 55 to 60%. Generalized weakness Left lower quadrant abdominal pain. Rule out diverticulitis. History of diverticulitis. Anxiety Ulcerative colitis. Currently not on any medications. Recent urine culture showed ESBL E. coli. Repeat UA negative. History of CVA/TIA Memory impairment Parkinson's disease Bilateral lower extremity edema. Likely dependent edema. History of multiple DVTs currently on Coumadin Osteoarthritis DVT prophylaxis patient is already on Coumadin. Plan: Patient will be continued on IV hydration and symptomatic management. Chest x- ray and UA is negative for any acute process. CT of abdomen pelvis was ordered. Continue with oral intake and advance as tolerated. Continue with home medi cations.. Further recommendations based on clinical course.Continue with ceftriaxone and follow-up urine culture report. Continue with Coumadin dosing. Time with Patient: Greater than 30
[2021-01-10] MEDS: PANTOPRAZOLE 40 MG TABLET PO SCH (04:57)
[2021-01-10] MEDS: CARBIDOPA-LEVODOPA 25-100 MG 1 EACH TAB PO SCH ×4 (04:57→16:14)
[2021-01-10 06:42] LABS: INR 1.9 (<1.2); Prothrombin Time 18.8 sec (9.0-12.0)
[2021-01-10] MEDS: clonazePAM 0.5 MG TAB PO SCH ×2 (07:27→20:39)
[2021-01-10] MEDS: METOPROLOL TARTRATE 25 MG TAB PO SCH ×2 (07:27→20:39)
[2021-01-10] MEDS: lisinopriL 10 MG TAB PO SCH (07:27)
[2021-01-10] MEDS: bisacodyL 5 MG TABLET.DR PO SCH (07:27)
[2021-01-10] MEDS: ISOSORBIDE MONONITRATE ER 30 MG TAB.ER.24H PO SCH (07:27)
[2021-01-10] MEDS: CHOLECALCIFEROL 25 MCG (1000 IU) TABLET PO SCH (07:27)
[2021-01-10] MEDS: traMADol 50 MG TAB PO PRN ×2 (07:27→16:14)
[2021-01-10] MEDS: FUROSEMIDE 10 MG/ML 2 ML VIAL IV SCH (07:28)
[2021-01-10] MEDS: polyethylene glycoL 3350 17 GM POWD.PACK PO SCH ×2 (07:35→20:40)
[2021-01-10] MEDS: amLODIPine 2.5 MG TAB PO SCH (08:07)
[2021-01-10 09:47] LABS: Basophils # (A) 0.04 X 10*3/uL (0.00-0.10); Basophils % (A) 0.6 %; Eosinophils # (A) 0.13 X 10*3/uL (0.04-0.35); Eosinophils % (A) 1.8 %; HCT 40.1 % (37.2-46.3); HGB 12.8 g/dL (12.0-15.0); Lymphocytes # (A) 2.69 X 10*3/uL (0.90-5.00); Lymphocytes % (A) 37.5 %; MCH 29.4 pg (27.0-32.0); MCHC 31.9 g/dL (32.0-37.0); Mean Platelet Volume 10.9 fL (9.5-12.2); Monocytes # (A) 0.76 X 10*3/uL (0.20-1.00); Monocytes % (A) 10.6 %; Neutrophils # (A) 3.53 X 10*3/uL (1.80-7.70); Neutrophils % (A) 49.2 %; Platelet Count 258 X 10*3/uL (140-440); RBC 4.36 X 10*6/uL (4.10-5.20); WBC 7.17 X 10*3/uL (4.50-10.00)
[2021-01-10 10:31] LABS: African American GFR (CKD) 49.4 (60.0-200.0); Anion Gap 10.4 mmol/L (4.00-12.00); BUN/Creat Ratio 22.5 Ratio (12.00-20.00); Calcium 9.2 mg/dL (8.7-10.3); Carbon Dioxide 29.6 mmol/L (21.6-31.8); Non-African American GFR(CKD) 42.6 (60.0-200.0); Potassium 3.9 mmol/L (3.5-5.5)
[2021-01-10 11:23] VITALS: BMI 27.1
[2021-01-10] MEDS: ACETAMINOPHEN TAB 325 MG TAB PO PRN ×2 (13:15→20:39)
[2021-01-10] MEDS: WARFARIN 2 MG TAB PO SCH (16:14)
[2021-01-10] MEDS: ATORVASTATIN 40 MG TAB PO SCH (20:39)
[2021-01-10] MEDS: CARBIDOPA-LEVODOPA ER 50-200MG 1 EACH TABLET.ER PO SCH (20:40)
[2021-01-10] MEDS: MELATONIN 5 MG TABLET PO SCH (20:40)
[2021-01-10] MEDS: PATIENT'S OWN (Mirabegron [Myrbetriq] 25 MG Tab.Er.24h) PO SCH (20:40)
[2021-01-11] MEDS: CARBIDOPA-LEVODOPA 25-100 MG 1 EACH TAB PO SCH ×3 (06:00→13:14)
[2021-01-11] MEDS: PANTOPRAZOLE 40 MG TABLET PO SCH (06:00)
[2021-01-11 07:28] LABS: INR 2.2 (<1.2); Prothrombin Time 21.5 sec (9.0-12.0)
[2021-01-11 08:11] VITALS: BP 112/56; PULSE 60; RESP 19; TEMP 97.6
[2021-01-11] MEDS ORDERED: FUROSEMIDE 10 MG/ML 2 ML VIAL IV SCH (09:00)
[2021-01-11] MEDS: METOPROLOL TARTRATE 25 MG TAB PO SCH (09:07)
[2021-01-11] MEDS: bisacodyL 5 MG TABLET.DR PO SCH (09:07)
[2021-01-11] MEDS: lisinopriL 10 MG TAB PO SCH (09:07)
[2021-01-11] MEDS: amLODIPine 2.5 MG TAB PO SCH (09:07)
[2021-01-11] MEDS: clonazePAM 0.5 MG TAB PO SCH (09:07)
[2021-01-11] MEDS: ISOSORBIDE MONONITRATE ER 30 MG TAB.ER.24H PO SCH (09:08)
[2021-01-11] MEDS: CHOLECALCIFEROL 25 MCG (1000 IU) TABLET PO SCH (09:08)
[2021-01-11] MEDS: polyethylene glycoL 3350 17 GM POWD.PACK PO SCH (09:09)
[2021-01-11] MEDS: traMADol 50 MG TAB PO PRN (10:30)
--- NOTE | 2021-01-11 12:19 | P.PN ---
Subjective Progress Note Date: 01/10/21 Patient is a 80-year-old female with a known history of CVA/TIA, history of multiple DVT, memory impairment, ulcerative colitis, history of diverticulitis, Parkinson's disease, bilateral lower extremity edema, osteoarthritis and recurrent UTIs, anxiety was brought to hospital by EMS due to complaints of bilateral lower committee swelling and chest pain and generalized weakness. Patient is also complaining of left lower quadrant abdominal pain. Denies any hematemesis or melena. No nausea vomiting or diarrhea. Chest x-ray showed no active cardiopulmonary disease. EKG showed normal sinus rhythm. Laboratory data showed INR 2.1 BUN 20 and creatinine 0.54 troponin x3 - proBNP 382 Urinalysis showed cloudy with less than 5 WBCs and RBCs. Coronavirus PCR not detected, Patient was discharged from the hospital on 11/27/2020. Admitted for recurrent chest pain and cardiac catheterization showed normal coronaries at that time. Urine culture showed ESBL E. coli but the repeat urinalysis is negative. ID recommends no further antibiotic course during previous admission. 01/10/2021 Patient is seen in follow-up continues to have abdominal discomfort although states it is slightly improved and continues with lower extremity edema noted and will continue with Tobias wraps from the toes up to the knees and elevating lower extremities while at rest. Discussed with the patient about increasing activity and getting up out of the bed more often and when sitting up in the chair elevate the lower extremities. UA is negative and patient is maintained on IV ceftriaxone. Patient is on Coumadin and will continue and current INR is 1.9 with pharmacy to dose. Creatinine is stable at 1.2. We'll decrease the dose of IV Lasix to 20 mg daily and continue to monitor closely. Review of systems: Constitutional: No reports of fatigue, fever, or chills Cardiovascular: No reports of chest pain or palpitations Respiratory: No reports of shortness of breath or cough GI: No reports of nausea, vomiting, or diarrhea, reports abdominal discomfort although slightly improved : No reports of dysuria or retention Neurovascular: Reports generalized weakness All medications have been reviewed Objective - Vital Signs Vital signs: Vital Signs Temp 98.0 F 01/10/21 07:00 Pulse 53 L 01/10/21 07:00 Resp 20 01/10/21 07:00 BP 104/65 01/10/21 07:00 Pulse Ox 95 01/10/21 09:03 Intake & Output 01/09/21 01/10/21 01/10/21 18:59 06:59 18:59 Intake Total 180 120 180 Output Total 1999 700 Balance -1820 -580 180 Weight 69.4 kg 69.4 kg Intake: Oral 180 120 180 Output: Urine 1999 700 Other: # Voids 1 # Bowel Movements 1 - Exam Patient is lying in the bed comfortably, no acute distress, awake alert and oriented 2-3.. HEENT: Normocephalic. Neck is supple. Pupils reactive. Nostrils clear. Oral cavity is moist. Ears reveal no drainage. Neck reveals no JVD, carotid bruits, or thyromegaly. CHEST EXAMINATION: Trachea is central. Symmetrical expansion. Lung goldman clear to auscultation and percussion. CARDIAC: Normal S1, S2 with no gallops. No murmurs ABDOMEN: Soft. Mild left lower quadrant tenderness with no guarding or rigidity noted. Bowel sounds normal. No organomegaly. No abdominal bruits. Extremities: Bilateral lower extremity 1+ edema.. No clubbing or cyanosis Neurologically awake, alert, oriented x2-3 with well-coordinated movements. Memory impairment. No focal deficits noted Skin: No rash or skin lesions. Psychiatric: Cooperative. Patient is not suicidal Musculoskeletal: No joint swelling or deformity. Normal range of motion. Generalized weakness - Labs CBC & Chem 7: 01/10/21 05:45 01/10/21 05:45 Labs: Abnormal Lab Results - Last 24 Hours (Table) 01/10/21 01/10/21 01/10/21 Range/Units 05:45 05:45 05:45 MCHC 31.9 L (32.0-37.0) g/dL PT 18.8 H (9.0-12.0) sec INR 1.9 H (<1.2) Est GFR (CKD-EPI)AfAm 49.4 L (60.0-200.0) Est GFR (CKD-EPI)NonAf 42.6 L (60.0-200.0) BUN/Creatinine Ratio 22.50 H (12.00-20.00) Ratio Assessment and Plan Assessment: Recurrent chest pain. Ruled out ACS. Patient cardiac catheterization showed normal coronaries. Ejection fraction 55 to 60%. Generalized weakness Left lower quadrant abdominal pain. Ruled out diverticulitis. History of diverticulitis. Anxiety Ulcerative colitis. Currently not on any medications. Recent urine culture showed ESBL E. coli. Repeat UA negative. History of CVA/TIA Memory impairment Parkinson's disease Bilateral lower extremity edema. Likely dependent edema. History of multiple DVTs currently on Coumadin Osteoarthritis DVT prophylaxis patient is already on Coumadin. Plan: Patient will be continued on IV hydration and symptomatic management. Patient was receiving 20 mg of IV Lasix twice daily and will decrease the dose to daily and continue to monitor closely. Chest x-ray and UA is negative for any acute process. Patient continues with lower extremity edema which is most likely dependent and will continue with Tobias wraps from the toes up to the knees and elevating lower extremities while at rest. CT of abdomen pelvis was showing no acute abnormality of the abdomen pelvis with some small renal cysts with no renal obstruction and no mesenteric edema noted.. Continue with encouraging oral intake and advance as tolerated. Continue with home medications.. Further recommendations based on clinical course of the patient. Continue with ceftriaxone. Patient will be returning to [facility] as she is a resident there once stabilized and discharged. Possible discharge in 24 hours.
--- NOTE | 2021-01-11 12:26 | P.DS ---
Providers Date of admission: 01/11/21 11:15 Expected date of discharge: 01/11/21 Attending physician: Sandro Higuera Primary care physician: Jesus Cooney Hospital Course: Final diagnosis Recurrent chest pain. Ruled out ACS. Patient cardiac catheterization showed normal coronaries. Ejection fraction 55 to 60%. Generalized weakness Left lower quadrant abdominal pain. Ruled out diverticulitis. History of diverticulitis. Anxiety Ulcerative colitis. Currently not on any medications. Recent urine culture showed ESBL E. coli. Repeat UA negative. History of CVA/TIA Memory impairment Parkinson's disease Bilateral lower extremity edema. Likely dependent edema. History of multiple DVTs currently on Coumadin Osteoarthritis DVT prophylaxis patient is already on Coumadin. Discharge disposition Patient is being discharged in a stable condition with guarded prognosis to [facility] where she is a resident. Patient will follow-up with Dr. Cooney upon discharge. Patient will continue on a low dose of Lasix 10 mg daily and recommend repeat labs in a few days to monitor kidney functions and electrolytes. Total time taken is greater than 35 minutes. hospital course This is an 80-year-old female who was recently admitted with bilateral lower extremity swelling, chest pain, and generalized weakness and was being closely monitored. Patient was also having complaints of left lower quadrant abdominal pain. Urinalysis is negative and patient was started on empiric antibiotics and continued on IV ceftriaxone and urinalysis remained negative and will not require antibiotic therapy on discharge. Patient underwent CT of the abdomen showing no acute abnormality of the abdomen pelvis some small renal cysts with no renal obstruction and no mesenteric edema noted. Troponins have been negative. Patient denies any chest pain at this time. Patient continues to have some lower extremity edema although slightly improved and will continue with a low-dose of Lasix 10 mg daily with close outpatient monitoring of elec trolytes and kidney functions. Recommendations are to continue with Jobst stockings and/or Tobias wraps from the toes up to the knees and elevating lower extremities while at rest. Also recommend continuing to increase oral intake and encourage increased activity. To continue with current bowel regimen and use MiraLAX as needed. Currently no reports of chest pain, shortness of breath, or palpitations. Patient is afebrile. No reports of nausea or vomiting and patient is tolerating diet. She will be discharged to [facility] today. Guarded prognosis. On exam vital signs are stable. Cardio S1, S2 are muffled. Respiratory shows diminished breath sounds at the bases with no wheezing or rhonchi noted. Abdomen is soft and nontender. Nervous system shows mild diffuse weakness. Please refer to medication reconciliation sheet for a list of medications. Patient Condition at Discharge: Fair Plan - Discharge Summary Discharge Rx Participant: No New Discharge Prescriptions: New Furosemide [Lasix] 10 mg PO DAILY 30 Days #30 tab Continue Omeprazole [PriLOSEC] 20 mg PO DAILY@0600 bisacodyL [Dulcolax] 5 mg PO DAILY@0900 Carbidopa-Levodopa 25-100 mg [Sinemet 25-100 mg] 1 tab PO QID Acetaminophen Tab [Tylenol] 650 mg PO Q4H PRN #1 tablet PRN Reason: Pain Carbidopa/Levodopa [Sinemet CR 50-200 mg] 1 tab PO HS@2100 Lisinopril [Zestril] 10 mg PO DAILY@0900 Melatonin 10 mg PO HS@2100 Mirabegron [Myrbetriq] 25 mg PO HS@2100 Warfarin [Coumadin] 1 mg PO MOTH@1700 Warfarin [Coumadin] 2 mg PO SUTUWEFRSA@1700 Nitroglycerin Sl Tabs [Nitrostat] 0.4 mg SL Q5M PRN PRN Reason: Chest Pain Polyethylene Glycol 3350 [Miralax] 17 gm PO BID@0900,2100 Cholecalciferol [Vitamin D3 (25 Mcg = 1000 Iu)] 50 mcg PO DAILY@0900 Atorvastatin [Lipitor] 40 mg PO HS@2100 Isosorbide Mononitrate ER [Imdur] 30 mg PO DAILY@0900 traMADol HCL [Ultram] 50 mg PO Q8H PRN #4 tab PRN Reason: Pain amLODIPine [Norvasc] 2.5 mg PO DAILY@0900 Metoprolol Tartrate [Lopressor] 25 mg PO BID@0900,2100 Mag Hydrox/Aluminum Hyd/Simeth [Mylanta Maximum Strength Liq] 10 ml PO TID PRN PRN Reason: upset stomach clonazePAM 0.25 mg PO BID@0900,2100 #6 tab Discharge Medication List Omeprazole [PriLOSEC] 20 mg PO DAILY@0600 01/11/19 [History] bisacodyL [Dulcolax] 5 mg PO DAILY@0900 02/19/19 [History] Carbidopa-Levodopa 25-100 mg [Sinemet 25-100 mg] 1 tab PO QID 07/30/19 [History] Acetaminophen Tab [Tylenol] 650 mg PO Q4H PRN #1 tablet 08/23/19 [Rx] Carbidopa/Levodopa [Sinemet CR 50-200 mg] 1 tab PO HS@209910/15/19 [History] Lisinopril [Zestril] 10 mg PO DAILY@89910/15/19 [History] Melatonin 10 mg PO HS@209910/15/19 [History] Mirabegron [Myrbetriq] 25 mg PO HS@209910/15/19 [History] Warfarin [Coumadin] 1 mg PO MOTH@169910/15/19 [History] Warfarin [Coumadin] 2 mg PO SUTUWEFRSA@169902/24/20 [History] Atorvastatin [Lipitor] 40 mg PO HS@209910/19/20 [History] Cholecalciferol [Vitamin D3 (25 Mcg = 1000 Iu)] 50 mcg PO DAILY@89910/19/20 [History] Nitroglycerin Sl Tabs [Nitrostat] 0.4 mg SL Q5M PRN 10/19/20 [History] Polyethylene Glycol 3350 [Miralax] 17 gm PO BID@899,209910/19/20 [History] amLODIPine [Norvasc] 2.5 mg PO DAILY@89911/20/20 [History] Mag Hydrox/Aluminum Hyd/Simeth [Mylanta Maximum Strength Liq] 10 ml PO TID PRN 11/24/20 [History] Metoprolol Tartrate [Lopressor] 25 mg PO BID@899,209911/24/20 [History] Isosorbide Mononitrate ER [Imdur] 30 mg PO DAILY@89901/08/21 [History] Furosemide [Lasix] 10 mg PO DAILY 30 Days #30 tab 01/11/21 [Rx] clonazePAM 0.25 mg PO BID@899,2099 #6 tab 01/11/21 [Rx] traMADol HCL [Ultram] 50 mg PO Q8H PRN #4 tab 01/11/21 [Rx] Follow up Appointment(s)/Referral(s): Jesus Cooney MD [Primary Care Provider] - 1-2 days Ambulatory/Diagnostic Orders: Complete Blood Count w/diff [LAB.AMB] Time Frame: 3 Days, Location: None Selected Activity/Diet/Wound Care/Special Instructions: Patient is returning to [facility] on the adames Activity as tolerated Encouraged increased activity and getting up out of the bed more often Continue with Tobias wraps from the toes up to the knees and elevate lower extremities while at rest Continue low-dose Lasix Repeat CBC and BMP in 2-3 days to monitor electrolytes, kidney functions, hemoglobin Continue heart healthy diet and ensures 3 times a day between meals Continue bowel regimen and use MiraLAX as needed Encourage fluids and increased oral intake Continue Coumadin follow up with primary care provider upon discharge Discharge Disposition: TRANSFER TO SNF/ECF
[2021-01-11] MEDS ORDERED: WARFARIN 1 MG TAB PO SCH (17:00)
== END 2021-01-11 14:27 | DRG 313 ==
LOC: EC 20:52 → 6NMEDSUR 01-09 00:57 → OBSVTOIN 01-11 11:15
PROVIDERS: ADMIT Hospitalist; ATTEND Hospitalist
DX: R07.9 Chest pain, unspecified (principal); I50.32 Chronic diastolic (congestive) heart failure; K51.90 Ulcerative colitis, unspecified, without complications; N39.0 Urinary tract infection, site not specified; Z16.12 Extended spectrum beta lactamase (ESBL) resistance; B96.20 Unspecified Escherichia coli [E. coli] as the cause of diseases classified elsewhere; E86.0 Dehydration; F41.9 Anxiety disorder, unspecified; R60.0 Localized edema; M19.90 Unspecified osteoarthritis, unspecified site; G31.84 Mild cognitive impairment of uncertain or unknown etiology; Z79.01 Long term (current) use of anticoagulants; G20 Parkinson's disease; Z87.19 Personal history of other diseases of the digestive system; I11.0 Hypertensive heart disease with heart failure; R10.32 Left lower quadrant pain; J45.909 Unspecified asthma, uncomplicated; K21.9 Gastro-esophageal reflux disease without esophagitis; Z79.899 Other long term (current) drug therapy; Z86.718 Personal history of other venous thrombosis and embolism; Z86.73 Personal history of transient ischemic attack (TIA), and cerebral infarction without residual deficits; Z87.440 Personal history of urinary (tract) infections; Z90.710 Acquired absence of both cervix and uterus; Z98.51 Tubal ligation status; Z90.49 Acquired absence of other specified parts of digestive tract; Z98.49 Cataract extraction status, unspecified eye; Z96.1 Presence of intraocular lens; Z88.7 Allergy status to serum and vaccine; Z88.0 Allergy status to penicillin; Z91.041 Radiographic dye allergy status
CPT/HCPCS: 36415; 71046; 74176; 80048; 80053; 81001; 82550; 83690; 83735; 83880; 84484; 85025; 85610; 85730; 87635; 93005; 94760; 99285

== ENCOUNTER 2021-02-09 23:44 | Observation (INO) | payer MEDICARE, OTHER ==
--- NOTE | 2021-02-10 00:01 | ED ---
Chest Pain HPI - General Chief Complaint: Chest Pain Stated Complaint: Chest Pain Time Seen by Provider: 02/10/21 00:00 Source: patient, EMS, RN notes reviewed, old records reviewed Mode of arrival: EMS Limitations: no limitations - History of Present Illness Initial Comments: This is an 80-year-old female DF for evaluation regarding chest pain. Patient's history of heart disease asthma heart failure vomiting or diarrhea no shortness of breath or fevers. She did take nitro with no help. No trauma. Chest pain is current. Heaviness and chest MD Complaint: chest pain -: days(s) Onset: during rest, during exertion Pain Location: substernal Pain Radiation: none Severity: moderate Severity scale (1-10): 4 Quality: sharp Consistency: intermittent Improves With: nothing Worsens With: nothing Anginal Symptoms: nausea, dyspnea Other Symptoms: palpitations Treatments Prior to Arrival: none - Related Data Home Medications Medication Instructions Recorded Confirmed Omeprazole [PriLOSEC] 20 mg PO DAILY@0601/11/19 02/10/21 bisacodyL [Dulcolax] 5 mg PO DAILY@89902/19/19 02/10/21 Carbidopa-Levodopa 25-100 mg 1 tab PO QID@,,,07/30/19 02/10/21 [Sinemet 25-100 mg] Carbidopa/Levodopa [Sinemet CR 1 tab PO HS@209910/15/19 02/10/21 50-200 mg] Lisinopril [Zestril] 10 mg PO DAILY@89910/15/19 02/10/21 Melatonin 10 mg PO HS@209910/15/19 02/10/21 Mirabegron [Myrbetriq] 25 mg PO HS@209910/15/19 02/10/21 Atorvastatin [Lipitor] 40 mg PO HS@209910/19/20 02/10/21 Cholecalciferol [Vitamin D3 (25 50 mcg PO DAILY@89910/19/20 02/10/21 Mcg = 1000 Iu)] Nitroglycerin Sl Tabs [Nitrostat] 0.4 mg SL Q5M PRN 10/19/20 02/10/21 Polyethylene Glycol 3350 [Miralax] 17 gm PO BID@899,209910/19/20 02/10/21 amLODIPine [Norvasc] 2.5 mg PO DAILY@0900 11/20/20 02/10/21 Mag Hydrox/Aluminum Hyd/Simeth 10 ml PO TID PRN 11/24/20 02/10/21 [Mylanta Maximum Strength Liq] Metoprolol Tartrate [Lopressor] 25 mg PO BID@0900,2100 11/24/20 02/10/21 Isosorbide Mononitrate ER [Imdur] 30 mg PO DAILY@0900 01/08/21 02/10/21 Furosemide [Lasix] 10 mg PO DAILY@0900 02/10/21 02/10/21 Lactose-Reduced Food [Ensure Plus] 237 ml PO TID@0900,1400,209902/10/21 02/10/21 clonazePAM [KlonoPIN] 0.5 mg PO BID@0900,209902/10/21 02/10/21 Previous Rx's Medication Instructions Recorded Acetaminophen Tab [Tylenol] 650 mg PO Q4H PRN #1 tablet 08/23/19 traMADol HCL [Ultram] 50 mg PO Q8H PRN #4 tab 01/11/21 Warfarin [Coumadin] 2 mg PO DAILY@1800 #0 tab 02/10/21 Allergies Allergy/AdvReac Type Severity Reaction Status Date / Time Influenza Virus Vaccines Allergy Swelling Verified 02/10/21 13:51 Penicillins Allergy Anaphylaxis Verified 02/10/21 13:51 Iodinated Contrast Media AdvReac Chest Pain Verified 02/10/21 13:51 [Iodinated Contrast- Oral and IV Dye] Review of Systems ROS Statement: Those systems with pertinent positive or pertinent negative responses have been documented in the HPI. ROS Other: All systems not noted in ROS Statement are negative. EKG Findings - EKG Comments: EKG Findings:: EKG shows sinus rhythm 67 [place] 160 QRS 88 QTc 405 Past Medical History Past Medical History: Asthma, Heart Failure, CVA/TIA, Deep Vein Thrombosis (DVT), GERD/Reflux, Hypertension, Memory Impairment, Musculoskeletal Disorder, Neurologic Disorder, Osteoarthritis (OA) Additional Past Medical History / Comment(s): Ulcerative colitis, diverticulitis, parkinson's disease, CVA which pt was unaware of having-showed on cat scan, several DVTs bilateral legs and pt states since she has had intermittent bilateral ankle edema, thrombophlebitis, PE-pt cannot recall laterallity, generalized arthritis, urinary leakage, UTIs, shingles x 2 History of Any Multi-Drug Resistant Organisms: ESBL Date of last positivie culture/infection: 09/12/20 MDRO Source:: URINE ESBL Past Surgical History: Appendectomy, Cholecystectomy, Hysterectomy, Orthopedic Surgery, Tubal Ligation Additional Past Surgical History / Comment(s): L shoulder injury with surgery to repair, removals of DVTs bilateral legs, cataract removal/lens implants, colonoscopies, hemorrohoids surgery Past Anesthesia/Blood Transfusion Reactions: Postoperative Nausea & Vomiting (PONV) Additional Past Anesthesia/Blood Transfusion Reaction / Comment(s): Pt received blood with hysterectomy without reaction. Past Psychological History: Anxiety Smoking Status: Never smoker Past Alcohol Use History: None Reported Past Drug Use History: None Reported - Past Family History Father Family Medical History: Asthma, Cancer, COPD Additional Family Medical History / Comment(s): Gallbladder cancer Mother Family Medical History: Myocardial Infarction (DC) Additional Family Medical History / Comment(s): Mother of a DC at the age of 48 yrs. Sister(s) Family Medical History: Deep Vein Thrombosis (DVT) Additional Family Medical History / Comment(s): Sister of a blood clot at age 38 yrs-pt cannot recall specifics. General Exam Limitations: no limitations General appearance: alert, in no apparent distress Head exam: Present: atraumatic, normocephalic, normal inspection Eye exam: Present: normal appearance, PERRL, EOMI. Absent: scleral icterus, conjunctival injection, periorbital swelling ENT exam: Present: normal exam, mucous membranes moist Neck exam: Present: normal inspection. Absent: tenderness, meningismus, lymphadenopathy Respiratory exam: Present: normal lung sounds bilaterally. Absent: respiratory distress, wheezes, rales, rhonchi, stridor Cardiovascular Exam: Present: regular rate, normal rhythm, normal heart sounds. Absent: systolic murmur, diastolic murmur, rubs, gallop, clicks GI/Abdominal exam: Present: soft, normal bowel sounds. Absent: distended, tenderness, guarding, rebound, rigid Extremities exam: Present: normal inspection, full ROM, normal capillary refill. Absent: tenderness, pedal edema, joint swelling, calf tenderness Back exam: Present: normal inspection Neurological exam: Present: alert, oriented X3, CN II-XII intact Psychiatric exam: Present: normal affect, normal mood Skin exam: Present: warm, dry, intact, normal color. Absent: rash Course Vital Signs 02/09/21 02/10/21 02/10/21 23:54 00:02 00:05 Temperature 98.6 F Pulse Rate 67 Pulse Rate [ 67 [employer] ] Respiratory 16 16 Rate Blood Pressure 169/71 O2 Sat by Pulse 99 Oximetry 02/10/21 01:59 Temperature Pulse Rate 59 L Pulse Rate [ [employer] ] Respiratory 16 Rate Blood Pressure 119/77 O2 Sat by Pulse 98 Oximetry - Reevaluation(s) Reevaluation #1: medical record is reviewed Patient symptoms are improved here in the ER Patient is in no acute distress In for results and questions have been answered Chest Pain MDM - MDM 80 female DEL with strong heart history and strong medical history coming with chest pain. Patient be admitted for cardiac observation Disposition Clinical Impression: Weakness, Chest pain, Atypical chest pain Disposition: ADMITTED IP TO THIS HOSP Condition: Undetermined Is patient prescribed a controlled substance at d/c from ED?: No
[2021-02-10 00:25] LABS: Basophils # (A) 0.1 k/uL (0-0.2); Basophils % (A) 1 %; Eosinophils # (A) 0.2 k/uL (0-0.7); Eosinophils % (A) 2 %; HCT 37.9 % (34.0-46.0); HGB 12.9 gm/dL (11.4-16.0); Lymphocytes # (A) 2.6 k/uL (1.0-4.8); Lymphocytes % (A) 35 %; MCH 30.4 pg (25.0-35.0); MCV 89.6 fL (80.0-100.0); Mean Platelet Volume 7.8; Monocytes # (A) 0.4 k/uL (0-1.0); Monocytes % (A) 6 %; Neutrophils # (A) 3.9 k/uL (1.3-7.7); Neutrophils % (A) 53 %; Platelet Count 211 k/uL (150-450); RBC 4.23 m/uL (3.80-5.40); RDW 13.5 % (11.5-15.5); WBC 7.3 k/uL (3.8-10.6)
--- NOTE | 2021-02-10 00:32 | XR ---
EXAMINATION TYPE: XR chest 2V DATE OF EXAM: 02/10/2021 COMPARISON: NONE HISTORY: Chest pain TECHNIQUE: 2 views FINDINGS: Heart and mediastinum are normal. Lungs are clear. Diaphragm is normal. Bony thorax is inta ct. There are chest leads. IMPRESSION: No active cardiopulmonary disease. Normal heart. No change.
[2021-02-10 00:35] LABS: Albumin 3.6 g/dL (3.5-5.0); Calcium 8.9 mg/dL (8.4-10.2); Magnesium 2.1 mg/dL (1.6-2.3); Potassium 4.2 mmol/L (3.5-5.1); Total Bilirubin 0.4 mg/dL (0.2-1.3); Total Protein 6.2 g/dL (6.3-8.2)
[2021-02-10 00:43] LABS: INR 1.8 (<1.2); Partial Thromboplastin Time 25.7 sec (22.0-30.0); Prothrombin Time 17.9 sec (9.0-12.0)
[2021-02-10] MEDS ORDERED: NITROGLYCERIN SL TABS 0.4 MG TAB SUBLINGUAL PRN ×2 (01:36→15:20)
[2021-02-10] MEDS ORDERED: MORPHINE SULFATE 4 MG/ML SYRINGE IVP STA (01:36)
[2021-02-10] MEDS ORDERED: ASPIRIN 81 MG PO STA (01:36)
[2021-02-10] MEDS: SODIUM CHLORIDE 0.9% 1,000 ML IV SCH ×2 (03:46→17:13)
[2021-02-10] MEDS ORDERED: MORPHINE SULFATE 4 MG/ML SYRINGE IV PRN (06:00)
[2021-02-10 07:22] VITALS: RESP 16
[2021-02-10 13:19] VITALS: BMI 27.4
[2021-02-10 14:09] VITALS: BP 168/64; PULSE 64; TEMP 98
[2021-02-10] MEDS ORDERED: MAG HYDROX/AL HYDROX/SIMETH 30 ML CUP PO PRN (15:20)
[2021-02-10] MEDS ORDERED: ACETAMINOPHEN TAB 325 MG TAB PO PRN (15:20)
[2021-02-10] MEDS ORDERED: traMADol 50 MG TAB PO PRN (15:20)
--- NOTE | 2021-02-10 15:29 | P.HPIM ---
History of Present Illness Patient is 80-year-old female had multiple hospital physicians in the past came in with complaints of chest pain in the retrosternal area reproducible. Patient had a recent cardiac catheterization month of November which showed normal coronaries. Patient just pain is nonpleuritic not associated with food no diaphoresis constant moderate severity. Patient was complaining of dysuria as well although patient is not a reliable historian. Patient had ESBL E. coli in the past will obtain a UA if that's normal patient will be discharged on rales patient the need to stay in the hospital in nature be evaluated with infectious disease. Patient has a high chance that she can have asymptomatic bacteriuria considering that the she has symptoms be probably will end up treating with the antibiotics. Patient doesn't have any leukocytosis doesn't have any suprapubic pain or tenderness doesn't have any fever chills. Patient is concerned about swelling in both lower extremity is although she doesn't have any swelling. Patient had DVTs in the past for which patient was on Coumadin patient's INR is 1.8. REVIEW OF SYSTEMS: CONSTITUTIONAL: No fever, no malaise, no fatigue. HEENT: No recent visual problems or hearing problems. Denied any sore throat. CARDIOVASCULAR: No orthopnea, PND, no palpitations, no syncope. PULMONARY: No shortness of breath, no cough, no hemoptysis. GASTROINTESTINAL: No diarrhea, no nausea, no vomiting, no abdominal pain. NEUROLOGICAL: No headaches, no weakness, no numbness. HEMATOLOGICAL: Denies any bleeding or petechiae. GENITOURINARY: As mentioned in HPI MUSCULOSKELETAL/RHEUMATOLOGICAL: Denies any joint pain, swelling, or any muscle pain. ENDOCRINE: Denies any polyuria or polydipsia. The rest of the 14-point review of systems is negative. PHYSICAL EXAMINATION: GENERAL: The patient is alert and oriented x3, not in any acute distress. Well developed, well nourished. HEENT: Pupils are round and equally reacting to light. EOMI. No scleral icterus. No conjunctival pallor. Normocephalic, atraumatic. No pharyngeal erythema. No thyromegaly. CARDIOVASCULAR: S1 and S2 present. No murmurs, rubs, or gallops. Reproducible chest pain PULMONARY: Chest is clear to auscultation, no wheezing or crackles. ABDOMEN: Soft, nontender, nondistended, normoactive bowel sounds. No palpable organomegaly. MUSCULOSKELETAL: No joint swelling or deformity. EXTREMITIES: No cyanosis, clubbing, or pedal edema. NEUROLOGICAL: Gross neurological examination did not reveal any focal deficits. SKIN: No rashes. Assessment and plan 1 chest pain: Musculoskeletal rule out acute coronary syndromes patient had a cardiac catheterization month of November. Probably not cardiac. No chance for pulmonary embolism patient just pain is nonpleuritic we'll obtain a d-dimer. Patient had DVTs in the past for which patient is already on anticoagulation -History of DVTs for which patient is on Coumadin suppurative and INR will increase Coumadin to 2 mg a daily basis -Symptoms of dysuria will obtain urine analysis if that's negative patient will be discharged if not patient need to be on meropenem on ertapenem and need evaluation by infectious disease. -Gastroesophageal reflux disease -Hypertension -Asthma without any acute exacerbation -Osteoarthritis of bilateral lower extremities DVT prophylaxis: On Coumadin now Past Medical History Past Medical History: Asthma, Heart Failure, CVA/TIA, Deep Vein Thrombosis (DVT), GERD/Reflux, Hypertension, Memory Impairment, Musculoskeletal Disorder, Neurologic Disorder, Osteoarthritis (OA) Additional Past Medical History / Comment(s): Ulcerative colitis, diverticulitis, parkinson's disease, CVA which pt was unaware of having-showed on cat scan, several DVTs bilateral legs and pt states since she has had intermittent bilateral ankle edema, thrombophlebitis, PE-pt cannot recall late rallity, generalized arthritis, urinary leakage, UTIs, shingles x 2 History of Any Multi-Drug Resistant Organisms: ESBL Date of last positivie culture/infection: 09/12/20 MDRO Source:: URINE ESBL Past Surgical History: Appendectomy, Cholecystectomy, Hysterectomy, Orthopedic Surgery, Tubal Ligation Additional Past Surgical History / Comment(s): L shoulder injury with surgery to repair, removals of DVTs bilateral legs, cataract removal/lens implants, colonoscopies, hemorrohoids surgery Past Anesthesia/Blood Transfusion Reactions: Postoperative Nausea & Vomiting (PONV) Additional Past Anesthesia/Blood Transfusion Reaction / Comment(s): Pt received blood with hysterectomy without reaction. Past Psychological History: Anxiety Additional Psychological History / Comment(s): Pt resides at [facility]. Staff get her up into wheelchair. Smoking Status: Never smoker Past Alcohol Use History: None Reported Past Drug Use History: None Reported - Past Family History Father Family Medical History: Asthma, Cancer, COPD Additional Family Medical History / Comment(s): Gallbladder cancer Mother Family Medical History: Myocardial Infarction (OR) Additional Family Medical History / Comment(s): Mother of a OR at the age of 48 yrs. Sister(s) Family Medical History: Deep Vein Thrombosis (DVT) Additional Family Medical History / Comment(s): Sister of a blood clot at age 38 yrs-pt cannot recall specifics. Medications and Allergies Home Medications Medication Instructions Recorded Confirmed Type Omeprazole [PriLOSEC] 20 mg PO DAILY@0600 01/11/19 02/10/21 History bisacodyL [Dulcolax] 5 mg PO DAILY@0902/19/19 02/10/21 History Carbidopa-Levodopa 25-100 mg 1 tab PO QID@05,,,07/30/19 02/10/21 History [Sinemet 25-100 mg] Acetaminophen Tab [Tylenol] 650 mg PO Q4H PRN #1 tablet 08/23/19 02/10/21 Rx Carbidopa/Levodopa [Sinemet CR 1 tab PO HS@209910/15/19 02/10/21 History 50-200 mg] Lisinopril [Zestril] 10 mg PO DAILY@89910/15/19 02/10/21 History Melatonin 10 mg PO HS@209910/15/19 02/10/21 History Mirabegron [Myrbetriq] 25 mg PO HS@209910/15/19 02/10/21 History Warfarin [Coumadin] 1 mg PO MOTH@169910/15/19 02/10/21 History Warfarin [Coumadin] 2 mg PO SUTUWEFRSA@169902/24/20 02/10/21 History Atorvastatin [Lipitor] 40 mg PO HS@209910/19/20 02/10/21 History Cholecalciferol [Vitamin D3 (25 50 mcg PO DAILY@0900 10/19/20 02/10/21 History Mcg = 1000 Iu)] Nitroglycerin Sl Tabs [Nitrostat] 0.4 mg SL Q5M PRN 10/19/20 02/10/21 History Polyethylene Glycol 3350 [Miralax] 17 gm PO BID@0900,2100 10/19/20 02/10/21 History amLODIPine [Norvasc] 2.5 mg PO DAILY@0900 11/20/20 02/10/21 History Mag Hydrox/Aluminum Hyd/Simeth 10 ml PO TID PRN 11/24/20 02/10/21 History [Mylanta Maximum Strength Liq] Metoprolol Tartrate [Lopressor] 25 mg PO BID@0900,209911/24/20 02/10/21 History Isosorbide Mononitrate ER [Imdur] 30 mg PO DAILY@0900 01/08/21 02/10/21 History traMADol HCL [Ultram] 50 mg PO Q8H PRN #4 tab 01/11/21 02/10/21 Rx Furosemide [Lasix] 10 mg PO DAILY@89902/10/21 02/10/21 History Lactose-Reduced Food [Ensure Plus] 237 ml PO TID@0900,1400,209902/10/21 02/10/21 History clonazePAM [KlonoPIN] 0.5 mg PO BID@0900,209902/10/21 02/10/21 History Allergies Allergy/AdvReac Type Severity Reaction Status Date / Time Influenza Virus Vaccines Allergy Swelling Verified 02/10/21 13:51 Penicillins Allergy Anaphylaxis Verified 02/10/21 13:51 Iodinated Contrast Media AdvReac Chest Pain Verified 02/10/21 13:51 [Iodinated Contrast- Oral and IV Dye] Physical Exam Vitals: Vital Signs Temp Pulse Pulse Pulse Resp BP BP 02/10/21 14:00 98.0 F 64 16 168/64 02/10/21 07:00 97.9 F 51 L 16 138/75 02/10/21 02:37 98.2 F 58 L 14 155/73 02/10/21 01:59 59 L 16 119/77 02/10/21 00:05 67 02/10/21 00:02 16 02/09/21 23:54 98.6 F 67 16 169/71 Pulse Ox 02/10/21 14:00 94 L 02/10/21 07:00 100 02/10/21 02:37 98 02/10/21 01:59 98 02/10/21 00:05 02/10/21 00:02 02/09/21 23:54 99 Intake and Output 02/10/21 02/10/21 02/10/21 06:59 14:59 22:59 Intake Total 100 800 Output Total 100 Balance 0 800 Intake: IV 100 Sodium Chloride 0.9% 1, 100 000 ml @ 100 mls/hr IV . Q10H JOSETTE Rx#:[id number] Intake, IV Titration 800 Amount Sodium Chloride 0.9% 1, 800 000 ml @ 100 mls/hr IV . Q10H JOSETTE Rx#:[id number] Output: Urine 100 Other: Voiding Method External Catheter Weight 70.3 kg 70.3 kg Results CBC & Chem 7: 02/10/21 00:10 02/10/21 00:14 Labs: Abnormal Lab Results - Last 24 Hours (Table) 02/10/21 02/10/21 Range/Units 00:14 00:14 PT 17.9 H (9.0-12.0) sec INR 1.8 H (<1.2) Carbon Dioxide 32 H (22-30) mmol/L BUN 23 H (7-17) mg/dL Total Protein 6.2 L (6.3-8.2) g/dL Thrombosis Risk Factor Assmnt - Choose All That Apply Any of the Below Risk Factors Present?: Yes Each Factor Represents 1 point: Obesity (BMI >25) Other Risk Factors: Yes Each Risk Factor Represents 3 Points: Age 75 years or older, History of DVT/PE Other congenital or acquired thrombophilia - If yes, enter type in comment: No Thrombosis Risk Factor Assessment Total Risk Factor Score: 7 Thrombosis Risk Factor Assessment Level: High Risk
[2021-02-10 15:48] LABS: Appearance,Urine Clear (Clear); Bacteria,Urine Occasional /hpf; Bilirubin,Urine Negative (Negative); Blood,Urine Negative (Negative); Color,Urine Light Yellow; Glucose,Urine (UA) Negative (Negative); Ketones,Urine Negative (Negative); Leukocyte Esterase,Urine Large (Negative); Mucus,Urine Rare /hpf; Nitrite,Urine Negative (Negative); PH, Urine 7.5 (5.0-8.0); Protein,Urine Negative (Negative); RBC,Urine 1 /hpf (0-5); Specific Gravity,Urine 1.011 (1.001-1.035); Squamous Epithelial Cell,Urine <1 /hpf (0-4); WBC,Urine 123 /hpf (0-5)
--- NOTE | 2021-02-10 16:14 | P.DS ---
Providers Date of admission: 02/10/21 01:36 Attending physician: Sandro Higuera Consults: 02/10/21 13:58 Consult Physician Routine Consulting Provider: Cirilo Jaffe Consult Reason/Comments: cp Do you want consulting provider notified?: Yes Primary care physician: Jesus Cooney Hospital Course: Patient is 80-year-old female had multiple hospital physicians in the past came in with complaints of chest pain in the retrosternal area reproducible. Patient had a recent cardiac catheterization of November which showed normal coronaries. Patient just pain is nonpleuritic not associated with food no diaphoresis constant moderate severity. Patient was complaining of dysuria as well although patient is not a reliable historian. Patient had ESBL E. coli in the past will obtain a UA if that's normal patient will be discharged on rales patient the need to stay in the hospital in nature be evaluated with infectious disease. Patient has a high chance that she can have asymptomatic bacteriuria c onsidering that the she has symptoms be probably will end up treating with the antibiotics. Patient doesn't have any leukocytosis doesn't have any suprapubic pain or tenderness doesn't have any fever chills. Patient is concerned about swelling in both lower extremity is although she doesn't have any swelling. Patient had DVTs in the past for which patient was on Coumadin patient's INR is 1.8. Update since admission Patient had urinalysis which is mildly abnormal for her increased white blood cell count and positive leukocyte esterase but nitrates are negative overall clinical picture looks like is some dried bacteriuria my suspicion is extremely low patient has actually has UTI. Patient cultures may come back positive as ESBL but there is no benefit in treating that as this is probably a colonizer. Patient had a d-dimer that was negative. Patient will be discharged today. REVIEW OF SYSTEMS: CONSTITUTIONAL: No fever, no malaise, no fatigue. HEENT: No recent visual problems or hearing problems. Denied any sore throat. CARDIOVASCULAR: No orthopnea, PND, no palpitations, no syncope. PULMONARY: No shortness of breath, no cough, no hemoptysis. GASTROINTESTINAL: No diarrhea, no nausea, no vomiting, no abdominal pain. NEUROLOGICAL: No headaches, no weakness, no numbness. HEMATOLOGICAL: Denies any bleeding or petechiae. GENITOURINARY: As mentioned in HPI MUSCULOSKELETAL/RHEUMATOLOGICAL: Denies any joint pain, swelling, or any muscle pain. ENDOCRINE: Denies any polyuria or polydipsia. The rest of the 14-point review of systems is negative. PHYSICAL EXAMINATION: GENERAL: The patient is alert and oriented x3, not in any acute distress. Well developed, well nourished. HEENT: Pupils are round and equally reacting to light. EOMI. No scleral icterus. No conjunctival pallor. Normocephalic, atraumatic. No pharyngeal erythema. No thyromegaly. CARDIOVASCULAR: S1 and S2 present. No murmurs, rubs, or gallops. Reproducible chest pain PULMONARY: Chest is clear to auscultation, no wheezing or crackles. ABDOMEN: Soft, nontender, nondistended, normoactive bowel sounds. No palpable organomegaly. MUSCULOSKELETAL: No joint swelling or deformity. EXTREMITIES: No cyanosis, clubbing, or pedal edema. NEUROLOGICAL: Gross neurological examination did not reveal any focal deficits. SKIN: No rashes. Assessment and plan 1 chest pain: Musculoskeletal rule out acute coronary syndromes patient had a cardiac catheterization month of November. Probably not cardiac. No chance for pulmonary embolism , chest pain is nonpleuritic and negative d-dimer Patient had DVTs in the past for which patient is already on anticoagulation -History of DVTs for which patient is on Coumadin suppurative and INR will increase Coumadin to 2 mg a daily basis -Asymptomatic bacteriuria: No need for antibiotics at this time patient is not septic. -Gastroesophageal reflux disease -Hypertension -Asthma without any acute exacerbation -Osteoarthritis of bilateral lower extremities DVT prophylaxis: On Coumadin now Patient Condition at Discharge: Undetermined Plan - Discharge Summary Discharge Rx Participant: No New Discharge Prescriptions: Continue Omeprazole [PriLOSEC] 20 mg PO DAILY@0600 bisacodyL [Dulcolax] 5 mg PO DAILY@0900 Carbidopa-Levodopa 25-100 mg [Sinemet 25-100 mg] 1 tab PO QID@05,09,13,17 Acetaminophen Tab [Tylenol] 650 mg PO Q4H PRN #1 tablet PRN Reason: Pain Carbidopa/Levodopa [Sinemet CR 50-200 mg] 1 tab PO HS@2100 Lisinopril [Zestril] 10 mg PO DAILY@0900 Melatonin 10 mg PO HS@2100 Mirabegron [Myrbetriq] 25 mg PO HS@2100 Warfarin [Coumadin] 1 mg PO MOTH@1700 Warfarin [Coumadin] 2 mg PO SUTUWEFRSA@1700 Nitroglycerin Sl Tabs [Nitrostat] 0.4 mg SL Q5M PRN PRN Reason: Chest Pain Polyethylene Glycol 3350 [Miralax] 17 gm PO BID@0900,2099 Cholecalciferol [Vitamin D3 (25 Mcg = 1000 Iu)] 50 mcg PO DAILY@0900 Atorvastatin [Lipitor] 40 mg PO HS@2099 Isosorbide Mononitrate ER [Imdur] 30 mg PO DAILY@0900 traMADol HCL [Ultram] 50 mg PO Q8H PRN #4 tab PRN Reason: Pain Lactose-Reduced Food [Ensure Plus] 237 ml PO TID@0900,1400,2099 clonazePAM [KlonoPIN] 0.5 mg PO BID@0900,2099 Furosemide [Lasix] 10 mg PO DAILY@0900 amLODIPine [Norvasc] 2.5 mg PO DAILY@0900 Metoprolol Tartrate [Lopressor] 25 mg PO BID@0900,2099 Mag Hydrox/Aluminum Hyd/Simeth [Mylanta Maximum Strength Liq] 10 ml PO TID PRN PRN Reason: upset stomach Discharge Medication List Omeprazole [PriLOSEC] 20 mg PO DAILY@0601/11/19 [History] bisacodyL [Dulcolax] 5 mg PO DAILY@0902/19/19 [History] Carbidopa-Levodopa 25-100 mg [Sinemet 25-100 mg] 1 tab PO QID@05,,,07/30/19 [History] Acetaminophen Tab [Tylenol] 650 mg PO Q4H PRN #1 tablet 08/23/19 [Rx] Carbidopa/Levodopa [Sinemet CR 50-200 mg] 1 tab PO HS@209910/15/19 [History] Lisinopril [Zestril] 10 mg PO DAILY@89910/15/19 [History] Melatonin 10 mg PO HS@209910/15/19 [History] Mirabegron [Myrbetriq] 25 mg PO HS@209910/15/19 [History] Warfarin [Coumadin] 1 mg PO MOTH@169910/15/19 [History] Warfarin [Coumadin] 2 mg PO SUTUWEFRSA@1700 02/24/20 [History] Atorvastatin [Lipitor] 40 mg PO HS@209910/19/20 [History] Cholecalciferol [Vitamin D3 (25 Mcg = 1000 Iu)] 50 mcg PO DAILY@0900 10/19/20 [History] Nitroglycerin Sl Tabs [Nitrostat] 0.4 mg SL Q5M PRN 10/19/20 [History] Polyethylene Glycol 3350 [Miralax] 17 gm PO BID@0900,209910/19/20 [History] amLODIPine [Norvasc] 2.5 mg PO DAILY@0911/20/20 [History] Mag Hydrox/Aluminum Hyd/Simeth [Mylanta Maximum Strength Liq] 10 ml PO TID PRN 11/24/20 [History] Metoprolol Tartrate [Lopressor] 25 mg PO BID@0900,209911/24/20 [History] Isosorbide Mononitrate ER [Imdur] 30 mg PO DAILY@0901/08/21 [History] traMADol HCL [Ultram] 50 mg PO Q8H PRN #4 tab 01/11/21 [Rx] Furosemide [Lasix] 10 mg PO DAILY@0902/10/21 [History] Lactose-Reduced Food [Ensure Plus] 237 ml PO TID@0900,1400,209902/10/21 [History] clonazePAM [KlonoPIN] 0.5 mg PO BID@0900,209902/10/21 [History] Follow up Appointment(s)/Referral(s): Jesus Cooney MD [Primary Care Provider] - 1-2 days Patient Instructions/Handouts: Chest Pain (DC), Weakness (DC) Discharge Disposition: HOME WITH HOME HEALTH SERVICES
[2021-02-10] MEDS ORDERED: CARBIDOPA-LEVODOPA 25-100 MG 1 EACH TAB PO SCH (17:00)
[2021-02-10] MEDS ORDERED: WARFARIN 3 MG TAB PO ONE (18:00)
[2021-02-10] MEDS ORDERED: NON FORMULARY DRUG (Lactose-Reduced Food [Ensure Plus] 237 ML Liquid) PO SCH (21:00)
[2021-02-10] MEDS ORDERED: NON FORMULARY DRUG (Mirabegron [Myrbetriq] 25 MG Tab.Er.24h) PO SCH (21:00)
[2021-02-10] MEDS ORDERED: CARBIDOPA-LEVODOPA ER 50-200MG 1 EACH TABLET.ER PO SCH (21:00)
[2021-02-10] MEDS ORDERED: ATORVASTATIN 40 MG TAB PO SCH (21:00)
[2021-02-10] MEDS ORDERED: METOPROLOL TARTRATE 25 MG TAB PO SCH (21:00)
[2021-02-10] MEDS ORDERED: MELATONIN 5 MG TABLET PO SCH (21:00)
[2021-02-10] MEDS ORDERED: polyethylene glycoL 3350 17 GM POWD.PACK PO SCH (21:00)
[2021-02-11] MEDS ORDERED: PANTOPRAZOLE 40 MG TABLET PO SCH (06:00)
[2021-02-11] MEDS ORDERED: ASPIRIN 325 MG TAB PO SCH (09:00)
[2021-02-11] MEDS ORDERED: CHOLECALCIFEROL 25 MCG (1000 IU) TABLET PO SCH (09:00)
[2021-02-11] MEDS ORDERED: bisacodyL 5 MG TABLET.DR PO SCH (09:00)
[2021-02-11] MEDS ORDERED: FUROSEMIDE 20 MG TAB PO SCH (09:00)
[2021-02-11] MEDS ORDERED: ISOSORBIDE MONONITRATE ER 30 MG TAB.ER.24H PO SCH (09:00)
[2021-02-11] MEDS ORDERED: lisinopriL 10 MG TAB PO SCH (09:00)
[2021-02-11] MEDS ORDERED: amLODIPine 2.5 MG TAB PO SCH (09:00)
[2021-02-11] MEDS ORDERED: WARFARIN 2 MG TAB PO SCH (18:00)
== END 2021-02-10 18:37 | disposition home health service (06) ==
LOC: EC 23:44 → 6NMEDSUR 02-10 01:36
PROVIDERS: ADMIT Hospitalist; ATTEND Hospitalist
DX: R07.89 Other chest pain (principal); R82.71 Bacteriuria; K21.9 Gastro-esophageal reflux disease without esophagitis; I11.0 Hypertensive heart disease with heart failure; I50.9 Heart failure, unspecified; J45.909 Unspecified asthma, uncomplicated; M19.90 Unspecified osteoarthritis, unspecified site; R00.2 Palpitations; F41.9 Anxiety disorder, unspecified; G20 Parkinson's disease; K51.90 Ulcerative colitis, unspecified, without complications; K57.90 Diverticulosis of intestine, part unspecified, without perforation or abscess without bleeding; E66.9 Obesity, unspecified; Z68.25 Body mass index [BMI] 25.0-25.9, adult; Z79.01 Long term (current) use of anticoagulants; Z79.899 Other long term (current) drug therapy; Z88.0 Allergy status to penicillin; Z91.041 Radiographic dye allergy status; Z88.7 Allergy status to serum and vaccine; Z16.12 Extended spectrum beta lactamase (ESBL) resistance; Z86.19 Personal history of other infectious and parasitic diseases; Z96.1 Presence of intraocular lens; Z98.41 Cataract extraction status, right eye; Z98.42 Cataract extraction status, left eye; Z86.718 Personal history of other venous thrombosis and embolism; Z86.73 Personal history of transient ischemic attack (TIA), and cerebral infarction without residual deficits; Z90.49 Acquired absence of other specified parts of digestive tract; Z90.710 Acquired absence of both cervix and uterus; Z80.0 Family history of malignant neoplasm of digestive organs; Z82.49 Family history of ischemic heart disease and other diseases of the circulatory system; Z82.5 Family history of asthma and other chronic lower respiratory diseases
CPT/HCPCS: 96374; 99285; 36415; 93005; 85379; 83880; 80053; 82550; 83735; 84484; 85025; 85610; 85730; 81001; 87086; 87077; 87186; 71046; G0378; J2270

== ENCOUNTER 2021-06-23 01:16 | Emergency (ER) | payer MEDICARE, OTHER ==
[2021-06-23 01:23] VITALS: RESP 17; TEMP 98.3
[2021-06-23] MEDS ORDERED: Acetaminophen-Codeine 300-30mg TAB PO STA (01:27)
[2021-06-23 02:04] LABS: INR 2.3 (<1.2); Partial Thromboplastin Time 27.9 sec (22.0-30.0); Prothrombin Time 22.3 sec (9.0-12.0)
--- NOTE | 2021-06-23 02:14 | XR ---
EXAMINATION TYPE: XR humerus LT DATE OF EXAM: 06/23/2021 COMPARISON: NONE HISTORY: Fall. Pain TECHNIQUE: 2 view FINDINGS: There is some deformity of the humeral neck that could be from an old healed fracture. I se e no acute fracture nor dislocation. Elbow joint appears intact. IMPRESSION: No acute abnormality of the left humerus.
--- NOTE | 2021-06-23 02:16 | XR ---
EXAMINATION TYPE: XR forearm LT DATE OF EXAM: 06/23/2021 COMPARISON: NONE HISTORY: Fall. Pain TECHNIQUE: 2 views FINDINGS: Radius and ulna appear intact. I see no fracture nor dislocation. IMPRESSION: Negative left forearm exam. No fracture.
--- NOTE | 2021-06-23 02:18 | ED ---
Fall HPI - General Chief Complaint: Fall Stated Complaint: Fall Time Seen by Provider: 06/23/21 01:21 Source: EMS Mode of arrival: ambulatory - History of Present Illness Initial Comments: 81 year-old female patient presents to the emergency department for evaluation after falling from her wheelchair. Staff reports that she is behavioral and will often throw herself from her wheelchair for attention. They state that she did hit her head. She is taking coumadin. She denies any loss of consciousness. She reports left sided facial pain. Left upper arm and forearm pain. Denies any hip or back pain. States that she was nauseated soon after hitting her head. Denies any vomiting. Denies numbness, tingling, weakness or extremities. - Related Data Home Medications Medication Instructions Recorded Confirmed Omeprazole [PriLOSEC] 20 mg PO DAILY@0601/11/19 02/10/21 bisacodyL [Dulcolax] 5 mg PO DAILY@89902/19/19 02/10/21 Carbidopa-Levodopa 25-100 mg 1 tab PO QID@,,,07/30/19 02/10/21 [Sinemet 25-100 mg] Carbidopa/Levodopa [Sinemet CR 1 tab PO HS@209910/15/19 02/10/21 50-200 mg] Lisinopril [Zestril] 10 mg PO DAILY@89910/15/19 02/10/21 Melatonin 10 mg PO HS@209910/15/19 02/10/21 Mirabegron [Myrbetriq] 25 mg PO HS@209910/15/19 02/10/21 Atorvastatin [Lipitor] 40 mg PO HS@209910/19/20 02/10/21 Cholecalciferol [Vitamin D3 (25 50 mcg PO DAILY@89910/19/20 02/10/21 Mcg = 1000 Iu)] Nitroglycerin Sl Tabs [Nitrostat] 0.4 mg SL Q5M PRN 10/19/20 02/10/21 Polyethylene Glycol 3350 [Miralax] 17 gm PO BID@0900,209910/19/20 02/10/21 amLODIPine [Norvasc] 2.5 mg PO DAILY@89911/20/20 02/10/21 Mag Hydrox/Aluminum Hyd/Simeth 10 ml PO TID PRN 11/24/20 02/10/21 [Mylanta Maximum Strength Liq] Metoprolol Tartrate [Lopressor] 25 mg PO BID@0900,209911/24/20 02/10/21 Isosorbide Mononitrate ER [Imdur] 30 mg PO DAILY@0900 01/08/21 02/10/21 Furosemide [Lasix] 10 mg PO DAILY@0900 02/10/21 02/10/21 Lactose-Reduced Food [Ensure Plus] 237 ml PO TID@0900,1400,209902/10/21 02/10/21 clonazePAM [KlonoPIN] 0.5 mg PO BID@0900,209902/10/21 02/10/21 Previous Rx's Medication Instructions Recorded Acetaminophen Tab [Tylenol] 650 mg PO Q4H PRN #1 tablet 08/23/19 traMADol HCL [Ultram] 50 mg PO Q8H PRN #4 tab 01/11/21 Warfarin [Coumadin] 2 mg PO DAILY@1800 #0 tab 02/10/21 Allergies Allergy/AdvReac Type Severity Reaction Status Date / Time Influenza Virus Vaccines Allergy Swelling Verified 02/10/21 13:51 Penicillins Allergy Anaphylaxis Verified 02/10/21 13:51 Iodinated Contrast Media AdvReac Chest Pain Verified 02/10/21 13:51 [Iodinated Contrast- Oral and IV Dye] Review of Systems ROS Statement: Those systems with pertinent positive or pertinent negative responses have been documented in the HPI. ROS Other: All systems not noted in ROS Statement are negative. Past Medical History Past Medical History: Asthma, Heart Failure, CVA/TIA, Deep Vein Thrombosis (DVT), GERD/Reflux, Hypertension, Memory Impairment, Musculoskeletal Disorder, Neurologic Disorder, Osteoarthritis (OA) Additional Past Medical History / Comment(s): Ulcerative colitis, divertic ulitis, parkinson's disease, CVA which pt was unaware of having-showed on cat scan, several DVTs bilateral legs and pt states since she has had intermittent bilateral ankle edema, thrombophlebitis, PE-pt cannot recall laterallity, generalized arthritis, urinary leakage, UTIs, shingles x 2 History of Any Multi-Drug Resistant Organisms: ESBL Date of last positivie culture/infection: 02/21/21 ESBL-E.coli MDRO Source:: URINE ESBL Past Surgical History: Appendectomy, Cholecystectomy, Hysterectomy, Orthopedic Surgery, Tubal Ligation Additional Past Surgical History / Comment(s): L shoulder injury with surgery to repair, removals of DVTs bilateral legs, cataract removal/lens implants, colonoscopies, hemorrohoids surgery Past Anesthesia/Blood Transfusion Reactions: Postoperative Nausea & Vomiting (PONV) Additional Past Anesthesia/Blood Transfusion Reaction / Comment(s): Pt received blood with hysterectomy without reaction. Past Psychological History: Anxiety Smoking Status: Never smoker Past Alcohol Use History: None Reported Past Drug Use History: None Reported - Past Family History Father Family Medical History: Asthma, Cancer, COPD Additional Family Medical History / Comment(s): Gallbladder cancer Mother Family Medical History: Myocardial Infarction ([place]) Additional Family Medical History / Comment(s): Mother of a [place] at the age of 48 yrs. Sister(s) Family Medical History: Deep Vein Thrombosis (DVT) Additional Family Medical History / Comment(s): Sister of a blood clot at age 38 yrs-pt cannot recall specifics. General Exam Limitations: no limitations General appearance: alert, in no apparent distress, other (This is a well- developed, well-nourished, nontoxic-appearing elderly female patient in no acute distress.) Head exam: Present: atraumatic, normocephalic, normal inspection Eye exam: Present: PERRL, EOMI, periorbital swelling (Left Superior orbital), periorbital tenderness (Left superior orbital), other (There is soft tissue swelling, ecchymosis noted to the left superior orbit laterally. No hyphema or evidence of globe injury.). Absent: scleral icterus, conjunctival injection ENT exam: Present: normal exam, normal oropharynx, mucous membranes moist Neck exam: Present: normal inspection, full ROM, other (Nontender, no step-off, no deformity to firm midline palpation of the posterior cervical spine. Full range of motion without pain or limitation.). Absent: tenderness, meningismus, lymphadenopathy Respiratory exam: Present: normal lung sounds bilaterally. Absent: respiratory distress, wheezes, rales, rhonchi, stridor Cardiovascular Exam: Present: regular rate, normal rhythm, normal heart sounds. Absent: systolic murmur, diastolic murmur, rubs, gallop, clicks GI/Abdominal exam: Present: soft, normal bowel sounds. Absent: distended, tenderness, guarding, rebound, rigid Extremities exam: Present: normal inspection, full ROM, normal capillary refill, other (No tenderness or instability noted with firm palpation of the bilateral hips inward). Absent: tenderness, pedal edema, joint swelling, calf tenderness Back exam: Present: normal inspection, other (Nontender, no step-off, no deformity to firm midline palpation of the thoracic and lumbar vertebrae. Full range of motion without pain or limitation.). Absent: vertebral tenderness Neurological exam: Present: alert, oriented X3, CN II-XII intact Psychiatric exam: Present: normal affect, normal mood Skin exam: Present: warm, dry, intact, normal color. Absent: rash Course Vital Signs 06/23/21 01:18 Temperature 98.3 F Pulse Rate 60 Respiratory 17 Rate Blood Pressure 158/64 O2 Sat by Pulse 96 Oximetry Medical Decision Making - Medical Decision Making 81-year-old female patient presented to the emergency department for evaluation after falling out of her wheelchair. Physical examination did reveal small area of her a orbital ecchymosis and swelling. She is neurologically intact with no focal deficits. Answers questions appropriately. CT brain and C-spine negative, CT facial bones negative, x-ray of the left humerus and forearm negative. She'll be discharged back to her intermediate facility. Return parameters were discussed in detail. She verbalizes understanding and agrees with this plan. My attending is Dr. Hardy. - Lab Data Lab Results 06/23/21 Range/Units 01:46 PT 22.3 H (9.0-12.0) sec INR 2.3 H (<1.2) APTT 27.9 (22.0-30.0) sec - Radiology Data Radiology results: report reviewed, image reviewed Disposition Clinical Impression: Periorbital contusion of left eye Disposition: HOME SELF-CARE Condition: Good Instructions (If sedation given, give patient instructions): Black Eye (ED), Fall Prevention for Older Adults (ED), Head Injury (ED) Additional Instructions: Follow-up with the primary care physician as needed. Return for any new, worsening, or concerning symptoms. Is patient prescribed a controlled substance at d/c from ED?: No Referrals: Jesus Cooney MD [Primary Care Provider] - 1-2 days Time of Disposition: 03:17
--- NOTE | 2021-06-23 03:09 | CT ---
EXAMINATION TYPE: CT brain cspine wo con DATE OF EXAM: 06/23/2021 COMPARISON: 08/19/2019 HISTORY: fall CT DLP: 759.5 mGycm Automated exposure control for dose reduction was used. Ventricles have fairly normal size. There is no mass effect nor midline shift. There is no sign of in tracranial hemorrhage. The calvarium is intact. The cervical vertebra have normal alignment. There is degenerative disc space narrowing at C4-5. Post erior elements are intact. Prevertebral soft tissues are intact. Skull base is intact. IMPRESSION: Negative CT scan of the brain. No change. Minor degenerative disc changes in the cervical spine at C4-5. No fracture. No change.
--- NOTE | 2021-06-23 03:11 | CT ---
EXAMINATION TYPE: CT facial bones wo con DATE OF EXAM: 06/23/2021 COMPARISON: None HISTORY: fall CT DLP: 269.5 mGycm Automated exposure control for dose reduction was used. Images obtained from the bottom of the mandible to the top of the frontal sinuses without contrast. Mandibular ring is intact. Temporomandibular joints are intact. Zygomatic arches appear normal. Nasal bone appears intact. Orbital margins are intact. There is no evidence of blowout fracture of the orb its. There is fairly normal development and aeration of the paranasal sinuses. The maxilla is intact. There is normal aeration of the mastoid sinuses. External auditory canals show bilateral debris. IMPRESSION: No evidence of traumatic injury of the facial bones. No fracture.
[2021-06-23 04:13] VITALS: BP 129/42; PULSE 78
== END 2021-06-23 04:13 | disposition home or self-care (01) ==
LOC: EC 01:16
DX: S00.12XA Contusion of left eyelid and periocular area, initial encounter (principal); J45.909 Unspecified asthma, uncomplicated; K21.9 Gastro-esophageal reflux disease without esophagitis; F41.9 Anxiety disorder, unspecified; Z86.73 Personal history of transient ischemic attack (TIA), and cerebral infarction without residual deficits; Z79.01 Long term (current) use of anticoagulants; Z79.899 Other long term (current) drug therapy; W05.0XXA Fall from non-moving wheelchair, initial encounter
CPT/HCPCS: 36415; 70450; 70486; 72125; 85610; 85730; 99284

== ENCOUNTER 2021-10-27 19:56 | Emergency (ER) | payer MEDICARE, OTHER ==
[2021-10-27 20:13] VITALS: TEMP 98.4
[2021-10-27 20:59] LABS: Basophils % (A) 1 %; Eosinophils # (A) 0.2 k/uL (0-0.7); Eosinophils % (A) 3 %; HCT 36.5 % (34.0-46.0); HGB 12.6 gm/dL (11.4-16.0); Lymphocytes # (A) 2.5 k/uL (1.0-4.8); Lymphocytes % (A) 36 %; MCH 32.1 pg (25.0-35.0); MCHC 34.5 g/dL (31.0-37.0); Mean Platelet Volume 8.1; Monocytes # (A) 0.4 k/uL (0-1.0); Monocytes % (A) 6 %; Neutrophils # (A) 3.6 k/uL (1.3-7.7); Neutrophils % (A) 52 %; Platelet Count 236 k/uL (150-450); RBC 3.92 m/uL (3.80-5.40); RDW 13.1 % (11.5-15.5); WBC 6.9 k/uL (3.8-10.6)
--- NOTE | 2021-10-27 21:08 | ED ---
General Adult HPI - General Source: patient, RN notes reviewed, old records reviewed Mode of arrival: EMS <Teo Mcnulty - Last Filed: 10/27/21 22:41> <Keenan Devries - Last Filed: 10/28/21 00:19> - General Chief complaint: Chest Pain Stated complaint: Chest Pain Time Seen by Provider: 10/27/21 20:05 - History of Present Illness Initial comments: 81-year-old female [facility] from [facility] for evaluation of chest pain. Patient states the pain is been present for the past 3 days. She states that she has had intermittent chest pain for some time but this is been more constant over the past 3 days. She denies vomiting. Denies diaphoresis. Denies abdominal pain. She is bedbound at baseline. She states the pain does travel into her left arm. (Teo Mcnulty) - Related Data Home Medications Medication Instructions Recorded Confirmed Omeprazole [PriLOSEC] 20 mg PO DAILY@0600 01/11/19 10/27/21 bisacodyL [Dulcolax] 5 mg PO DAILY@0902/19/19 10/27/21 Carbidopa-Levodopa 25-100 mg 1 tab PO QID 07/30/19 10/27/21 [Sinemet 25-100 mg] Carbidopa/Levodopa [Sinemet CR 1 tab PO HS@209910/15/19 10/27/21 50-200 mg] Lisinopril [Zestril] 10 mg PO DAILY@89910/15/19 10/27/21 Melatonin 10 mg PO HS@209910/15/19 10/27/21 Mirabegron [Myrbetriq] 25 mg PO HS@209910/15/19 10/27/21 Atorvastatin [Lipitor] 40 mg PO HS@209910/19/20 10/27/21 Cholecalciferol [Vitamin D3 (25 50 mcg PO DAILY@89910/19/20 10/27/21 Mcg = 1000 Iu)] Nitroglycerin Sl Tabs [Nitrostat] 0.4 mg SL Q5M PRN 10/19/20 10/27/21 Polyethylene Glycol 3350 [Miralax] 17 gm PO BID@0900,209910/19/20 10/27/21 amLODIPine [Norvasc] 2.5 mg PO DAILY@0900 11/20/20 10/27/21 Mag Hydrox/Aluminum Hyd/Simeth 10 ml PO TID PRN 11/24/20 10/27/21 [Mylanta Maximum Strength Liq] Metoprolol Tartrate [Lopressor] 25 mg PO BID@0900,209911/24/20 10/27/21 Furosemide [Lasix] 10 mg PO DAILY@0900 02/10/21 10/27/21 Lactose-Reduced Food [Ensure Plus] 237 ml PO TID@0900,1400,209902/10/21 10/27/21 clonazePAM [KlonoPIN] 0.5 mg PO BID@0900,209902/10/21 10/27/21 Acetaminophen Tab [Tylenol] 650 mg PO Q4H PRN 10/27/21 10/27/21 Loperamide [Imodium] 2 - 4 mg PO BID PRN 10/27/21 10/27/21 QUEtiapine FUMARATE [SEROquel] 25 mg PO HS@209910/27/21 10/27/21 Warfarin [Coumadin] 1 mg PO MOTU@1700 10/27/21 10/27/21 Warfarin [Coumadin] 2 mg PO SUTUWEFRSA@1700 10/27/21 10/27/21 Previous Rx's Medication Instructions Recorded traMADol HCL [Ultram] 50 mg PO Q8H PRN #4 tab 01/11/21 Allergies Allergy/AdvReac Type Severity Reaction Status Date / Time Influenza Virus Vaccines Allergy Swelling Verified 10/27/21 20:49 Penicillins Allergy Anaphylaxis Verified 10/27/21 20:49 Iodinated Contrast Media AdvReac Chest Pain Verified 10/27/21 20:49 [Iodinated Contrast- Oral and IV Dye] Review of Systems ROS Other: All systems not noted in ROS Statement are negative. <Teo Mcnulty - Last Filed: 10/27/21 22:41> ROS Other: All systems not noted in ROS Statement are negative. <Keenan Devries - Last Filed: 10/28/21 00:19> ROS Statement: Those systems with pertinent positive or pertinent negative responses have been documented in the HPI. Past Medical History Past Medical History: Asthma, Heart Failure, CVA/TIA, Deep Vein Thrombosis (DVT), GERD/Reflux, Hypertension, Memory Impairment, Musculoskeletal Disorder, Neurologic Disorder, Osteoarthritis (OA) Additional Past Medical History / Comment(s): Ulcerative colitis, diverticulitis, parkinson's disease, CVA which pt was unaware of having-showed on cat scan, several DVTs bilateral legs and pt states since she has had intermittent bilateral ankle edema, thrombophlebitis, PE-pt cannot recall laterallity, generalized arthritis, urinary leakage, UTIs, shingles x 2 History of Any Multi-Drug Resistant Organisms: ESBL Date of last positivie culture/infection: 07/09/21 ESBL-E.coli MDRO Source:: URINE ESBL Past Surgical History: Appendectomy, Cholecystectomy, Hysterectomy, Orthopedic Surgery, Tubal Ligation Additional Past Surgical History / Comment(s): L shoulder injury with surgery to repair, removals of DVTs bilateral legs, cataract removal/lens implants, colonoscopies, hemorrohoids surgery Past Anesthesia/Blood Transfusion Reactions: Postoperative Nausea & Vomiting (PONV) Additional Past Anesthesia/Blood Transfusion Reaction / Comment(s): Pt received blood with hysterectomy without reaction. Past Psychological History: Anxiety Smoking Status: Never smoker Past Alcohol Use History: None Reported Past Drug Use History: None Reported - Past Family History Father Family Medical History: Asthma, Cancer, COPD Additional Family Medical History / Comment(s): Gallbladder cancer Mother Family Medical History: Myocardial Infarction ([place]) Additional Family Medical History / Comment(s): Mother of a [place] at the age of 48 yrs. Sister(s) Family Medical History: Deep Vein Thrombosis (DVT) Additional Family Medical History / Comment(s): Sister of a blood clot at age 38 yrs-pt cannot recall specifics. <Teo Mcnulty - Last Filed: 10/27/21 22:41> General Exam General appearance: alert, in no apparent distress Head exam: Present: atraumatic, normocephalic Eye exam: Present: normal appearance, PERRL ENT exam: Present: normal exam Respiratory exam: Present: normal lung sounds bilaterally, chest wall tenderness. Absent: respiratory distress Cardiovascular Exam: Present: regular rate, normal rhythm GI/Abdominal exam: Present: soft. Absent: distended, tenderness Extremities exam: Present: normal capillary refill, pedal edema Neurological exam: Present: alert. Absent: motor sensory deficit Psychiatric exam: Present: flat affect Skin exam: Present: warm, dry, intact. Absent: cyanosis, diaphoretic <Teo Mcnulty - Last Filed: 10/27/21 22:41> General appearance: alert, in no apparent distress Head exam: Present: atraumatic, normocephalic, normal inspection Eye exam: Present: normal appearance, PERRL, EOMI. Absent: scleral icterus, conjunctival injection, periorbital swelling ENT exam: Present: normal exam, mucous membranes moist Neck exam: Present: normal inspection. Absent: tenderness, meningismus, lymphadenopathy Respiratory exam: Present: normal lung sounds bilaterally. Absent: respiratory distress, wheezes, rales, rhonchi, stridor Cardiovascular Exam: Present: regular rate, normal rhythm, normal heart sounds. Absent: systolic murmur, diastolic murmur, rubs, gallop, clicks GI/Abdominal exam: Present: soft, normal bowel sounds. Absent: distended, tenderness, guarding, rebound, rigid Extremities exam: Present: normal inspection, full ROM, normal capillary refill. Absent: tenderness, pedal edema, joint swelling, calf tenderness Back exam: Present: normal inspection Neurological exam: Present: alert, oriented X3, CN II-XII intact Psychiatric exam: Present: normal affect, normal mood Skin exam: Present: warm, dry, intact, normal color. Absent: rash <Keenan Devries - Last Filed: 10/28/21 00:19> Course <Keenan Devries - Last Filed: 10/28/21 00:19> Vital Signs 10/27/21 10/27/21 10/27/21 20:08 20:52 23:22 Temperature 98.4 F Pulse Rate 68 65 64 Respiratory 16 18 18 Rate Blood Pressure 151/74 141/62 136/78 O2 Sat by Pulse 97 94 L 96 Oximetry - Reevaluation(s) Reevaluation #1: 10/28/21 00:18 Medical record is reviewed (Keenan Devries) Reevaluation #2: 10/28/21 00:18 Patient updated regarding results okay for discharge (Keenan Devries) EKG Findings - EKG Comments: EKG Findings:: EKG: Sinus rhythm no ST segment elevation, rate of 61, NM interval 150, QRS duration 98, QTC 382. <Teo Mcnulty - Last Filed: 10/27/21 22:41> Medical Decision Making - Lab Data Result diagrams: 10/27/21 20:47 10/27/21 20:47 <HamletTeo Lam - Last Filed: 10/27/21 22:41> - Lab Data Result diagrams: 10/27/21 20:47 10/27/21 20:47 <Keenan Devries - Last Filed: 10/28/21 00:19> - Medical Decision Making 81-year-old female [facility] from [facility] for evaluation chest pain. Pain is reproducible on exam. EKG is nonischemic. There is no vital sign abnormalities. Her lungs are clear to auscultation bilaterally. Chest x-ray shows normal cardiac silhouette, no acute findings on chest x-ray. Laboratory testing is unremarkable including negative troponin. I did review of medical record and there was a heart catheterization in November 2020 showing normal coronary arteries. I discussed the patient's presentation with her daughter who states that secondary to her Parkinson's and dementia she does have some hallucinations and this is not abnormal for her to complain of some chest pain. She also states that she would like her mother checked for urinary tract infection. This is ordered and results are pending. Patient will be [facility] back to the [facility]. (Teo Mcnulty) 81 female okay for discharge back to extended care facility, [facility]. Urinalysis is nitrite positive here in the ER patient given 1 dose of antibiotics depending culture here in the emergency department patient can be discharged (Keenan Devries) - Lab Data Lab Results 10/27/21 10/27/21 10/27/21 Range/Units 20:47 20:47 20:47 WBC 6.9 (3.8-10.6) k/uL RBC 3.92 (3.80-5.40) m/uL Hgb 12.6 (11.4-16.0) gm/dL Hct 36.5 (34.0-46.0) % MCV 93.0 (80.0-100.0) fL MCH 32.1 (25.0-35.0) pg MCHC 34.5 (31.0-37.0) g/dL RDW 13.1 (11.5-15.5) % Plt Count 236 (150-450) k/uL MPV 8.1 Neutrophils % 52 % Lymphocytes % 36 % Monocytes % 6 % Eosinophils % 3 % Basophils % 1 % Neutrophils # 3.6 (1.3-7.7) k/uL Lymphocytes # 2.5 (1.0-4.8) k/uL Monocytes # 0.4 (0-1.0) k/uL Eosinophils # 0.2 (0-0.7) k/uL Basophils # 0.0 (0-0.2) k/uL PT 23.4 H (9.0-12.0) sec INR 2.3 H (<1.2) APTT 28.4 (22.0-30.0) sec Sodium 139 (137-145) mmol/L Potassium 4.2 (3.5-5.1) mmol/L Chloride 105 (98-107) mmol/L Carbon Dioxide 33 H (22-30) mmol/L Anion Gap 1 mmol/L BUN 29 H (7-17) mg/dL Creatinine 0.88 (0.52-1.04) mg/dL Est GFR (CKD-EPI)AfAm 72 (>60 ml/min/1.73 sqM) Est GFR (CKD-EPI)NonAf 62 (>60 ml/min/1.73 sqM) Glucose 92 (74-99) mg/dL Calcium 8.5 (8.4-10.2) mg/dL Magnesium 2.2 (1.6-2.3) mg/dL Total Bilirubin 0.6 (0.2-1.3) mg/dL AST 22 (14-36) U/L ALT 6 (4-34) U/L Alkaline Phosphatase 56 (38-126) U/L Troponin I (0.000-0.034) ng/mL NT-Pro-B Natriuret Pep pg/mL Total Protein 6.1 L (6.3-8.2) g/dL Albumin 3.3 L (3.5-5.0) g/dL Lipase 56 (23-300) U/L Urine Color Urine Appearance (Clear) Urine pH (5.0-8.0) Ur Specific [place] (1.001-1.035) Urine Protein (Negative) Urine Glucose (UA) (Negative) Urine Ketones (Negative) Urine Blood (Negative) Urine Nitrite (Negative) Urine Bilirubin (Negative) Urine Urobilinogen (<2.0) mg/dL Ur Leukocyte Esterase (Negative) Urine WBC (0-5) /hpf Urine Bacteria (None) /hpf 10/27/21 10/27/21 10/27/21 Range/Units 20:47 20:47 22:50 WBC (3.8-10.6) k/uL RBC (3.80-5.40) m/uL Hgb (11.4-16.0) gm/dL Hct (34.0-46.0) % MCV (80.0-100.0) fL MCH (25.0-35.0) pg MCHC (31.0-37.0) g/dL RDW (11.5-15.5) % Plt Count (150-450) k/uL MPV Neutrophils % % Lymphocytes % % Monocytes % % Eosinophils % % Basophils % % Neutrophils # (1.3-7.7) k/uL Lymphocytes # (1.0-4.8) k/uL Monocytes # (0-1.0) k/uL Eosinophils # (0-0.7) k/uL Basophils # (0-0.2) k/uL PT (9.0-12.0) sec INR (<1.2) APTT (22.0-30.0) sec Sodium (137-145) mmol/L Potassium (3.5-5.1) mmol/L Chloride (98-107) mmol/L Carbon Dioxide (22-30) mmol/L Anion Gap mmol/L BUN (7-17) mg/dL Creatinine (0.52-1.04) mg/dL Est GFR (CKD-EPI)AfAm (>60 ml/min/1.73 sqM) Est GFR (CKD-EPI)NonAf (>60 ml/min/1.73 sqM) Glucose (74-99) mg/dL Calcium (8.4-10.2) mg/dL Magnesium (1.6-2.3) mg/dL Total Bilirubin (0.2-1.3) mg/dL AST (14-36) U/L ALT (4-34) U/L Alkaline Phosphatase (38-126) U/L Troponin I <0.012 (0.000-0.034) ng/mL NT-Pro-B Natriuret Pep 245 pg/mL Total Protein (6.3-8.2) g/dL Albumin (3.5-5.0) g/dL Lipase (23-300) U/L Urine Color Yellow Urine Appearance Clear (Clear) Urine pH 7.0 (5.0-8.0) Ur Specific [place] 1.015 (1.001-1.035) Urine Protein Negative (Negative) Urine Glucose (UA) Negative (Negative) Urine Ketones Negative (Negative) Urine Blood Negative (Negative) Urine Nitrite Positive H (Negative) Urine Bilirubin Negative (Negative) Urine Urobilinogen <2.0 (<2.0) mg/dL Ur Leukocyte Esterase Negative (Negative) Urine WBC 1 (0-5) /hpf Urine Bacteria Few H (None) /hpf Disposition Is patient prescribed a controlled substance at d/c from ED?: No Time of Disposition: 22:42 <Teo Mcnulty - Last Filed: 10/27/21 22:41> Is patient prescribed a controlled substance at d/c from ED?: No <Keenan Devries - Last Filed: 10/28/21 00:19> Clinical Impression: Atypical chest pain, Chest pain, Weakness Disposition: HOME SELF-CARE Condition: Fair Instructions (If sedation given, give patient instructions): Chest Pain (ED) Referrals: Jesus Cooney MD [Primary Care Provider] - 1-2 days
[2021-10-27 21:10] LABS: INR 2.3 (<1.2); Partial Thromboplastin Time 28.4 sec (22.0-30.0); Prothrombin Time 23.4 sec (9.0-12.0)
[2021-10-27 21:19] LABS: Albumin 3.3 g/dL (3.5-5.0); Calcium 8.5 mg/dL (8.4-10.2); Magnesium 2.2 mg/dL (1.6-2.3); Potassium 4.2 mmol/L (3.5-5.1); Total Bilirubin 0.6 mg/dL (0.2-1.3); Total Protein 6.1 g/dL (6.3-8.2)
--- NOTE | 2021-10-27 21:24 | XR ---
EXAMINATION TYPE: XR chest 2V DATE OF EXAM: 10/27/2021 COMPARISON: NONE HISTORY: Chest pain TECHNIQUE: 2 views FINDINGS: Heart is normal. Lungs are clear of consolidation. There are no hilar masses. There are sunil st leads. Costophrenic angles are fairly clear. There is minimal pleural reaction lateral right lung base. IMPRESSION: Pleural diaphragmatic scarring lateral right lung base appears stable compared to old exa m. No acute lung disease.
[2021-10-27 23:24] LABS: Appearance,Urine Clear (Clear); Bacteria,Urine Few /hpf; Bilirubin,Urine Negative (Negative); Blood,Urine Negative (Negative); Color,Urine Yellow; Glucose,Urine (UA) Negative (Negative); Ketones,Urine Negative (Negative); Leukocyte Esterase,Urine Negative (Negative); Nitrite,Urine Positive (Negative); Protein,Urine Negative (Negative); Specific Gravity,Urine 1.015 (1.001-1.035); Urobilinogen,Urine <2.0 mg/dL (<2.0); WBC,Urine 1 /hpf (0-5)
[2021-10-28] MEDS ORDERED: cefTRIAXone IN SWFI 1,000 MG/10 ML SYRINGE IVP STA (00:15)
[2021-10-28] MEDS ORDERED: ONDANSETRON 4 MG ODT STARTER PACK 2 TAB BTL PO STA (00:17)
[2021-10-28 00:31] VITALS: BP 141/61; PULSE 63; RESP 16
== END 2021-10-28 01:17 | disposition home or self-care (01) ==
LOC: EC 19:56
DX: R07.89 Other chest pain (principal); Z86.73 Personal history of transient ischemic attack (TIA), and cerebral infarction without residual deficits; I10 Essential (primary) hypertension; J45.909 Unspecified asthma, uncomplicated; Z84.89 Family history of other specified conditions; K21.9 Gastro-esophageal reflux disease without esophagitis; Z79.1 Long term (current) use of non-steroidal anti-inflammatories (NSAID); Z88.0 Allergy status to penicillin; Z88.7 Allergy status to serum and vaccine; Z91.041 Radiographic dye allergy status
CPT/HCPCS: 36415; 93005; 83880; 80053; 83690; 83735; 84484; 85025; 85610; 85730; 81001; 71046; 99285; 96374; J0696; S0119

== ENCOUNTER 2021-12-02 19:19 | Emergency (ER) | payer MEDICARE, OTHER ==
--- NOTE | 2021-12-02 19:28 | ED ---
General Adult HPI - General Source: patient, RN notes reviewed, old records reviewed <Keenan Barry - Last Filed: 12/02/21 20:59> <Eris Hardy - Last Filed: 12/02/21 23:02> - General Stated complaint: Chest Pain Time Seen by Provider: 12/02/21 19:19 - History of Present Illness Initial comments: This is an 81-year-old female presents emergency Department from a retirement. Patient comes in because she complained of chest pain. Patient told me the pain started 2 days ago but it got a little worse this afternoon so she decided to call EMS. According to the paramedics patient will call 911 for chest pain so the daughter eventually took her phone away that prevented her from calling however the daughter recently gave her phone back and she immediately called today because staff would not call. Patient states the pain was ongoing for 2 days but worse today she denies shortness of breath she denies any diaphoretic episodes denies any nausea vomiting. Patient states the same pain she always has per patient denies any fever chills. Patient denies any cough. Patient de nies any other symptoms. (Keenan Barry) - Related Data Home Medications Medication Instructions Recorded Confirmed Omeprazole [PriLOSEC] 20 mg PO DAILY@0600 01/11/19 12/02/21 bisacodyL [Dulcolax] 5 mg PO DAILY 02/19/19 12/02/21 Carbidopa-Levodopa 25-100 mg 1 tab PO QID 07/30/19 12/02/21 [Sinemet 25-100 mg] Carbidopa/Levodopa [Sinemet CR 1 tab PO HS@2100 10/15/19 12/02/21 50-200 mg] Lisinopril [Zestril] 10 mg PO DAILY 10/15/19 12/02/21 Melatonin 10 mg PO HS 10/15/19 12/02/21 Mirabegron [Myrbetriq] 25 mg PO HS 10/15/19 12/02/21 Atorvastatin [Lipitor] 40 mg PO HS 10/19/20 12/02/21 Cholecalciferol [Vitamin D3 (25 50 mcg PO DAILY 10/19/20 12/02/21 Mcg = 1000 Iu)] Nitroglycerin Sl Tabs [Nitrostat] 0.4 mg SL Q5M PRN 10/19/20 12/02/21 Polyethylene Glycol 3350 [Miralax] 17 gm PO BID 10/19/20 12/02/21 Mag Hydrox/Aluminum Hyd/Simeth 10 ml PO Q8H PRN 11/24/20 12/02/21 [Mylanta Maximum Strength Liq] Metoprolol Tartrate [Lopressor] 25 mg PO BID 11/24/20 12/02/21 Furosemide [Lasix] 10 mg PO DAILY 02/10/21 12/02/21 Lactose-Reduced Food [Ensure Plus] 237 ml PO TID@0900,1400,2100 02/10/2112/02 clonazePAM [KlonoPIN] 0.5 mg PO BID 02/10/21 12/02/21 Acetaminophen Tab [Tylenol] 650 mg PO Q4H PRN 10/27/21 12/02/21 Loperamide [Imodium] 2 - 4 mg PO QID PRN MDD 16mg 10/27/21 12/02/21 QUEtiapine FUMARATE [SEROquel] 25 mg PO BID 10/27/21 12/02/21 Warfarin [Coumadin] 1 mg PO MOTH@1700 10/27/21 12/02/21 Warfarin [Coumadin] 2 mg PO SUTUWEFRSA@1700 10/27/21 12/02/21 Previous Rx's Medication Instructions Recorded traMADol HCL [Ultram] 50 mg PO Q8H PRN #4 tab 01/11/21 Allergies Allergy/AdvReac Type Severity Reaction Status Date / Time Influenza Virus Vaccines Allergy Swelling Verified 12/02/21 19:42 Penicillins Allergy Anaphylaxis Verified 12/02/21 19:42 Iodinated Contrast Media AdvReac Chest Pain Verified 12/02/21 19:42 [Iodinated Contrast- Oral and IV Dye] Review of Systems ROS Other: All systems not noted in ROS Statement are negative. <Keenan Barry - Last Filed: 12/02/21 20:59> ROS Other: All systems not noted in ROS Statement are negative. <Eris Hardy - Last Filed: 12/02/21 23:02> ROS Statement: Those systems with pertinent positive or pertinent negative responses have been documented in the HPI. Past Medical History Past Medical History: Asthma, Heart Failure, CVA/TIA, Deep Vein Thrombosis (DVT), GERD/Reflux, Hypertension, Memory Impairment, Musculoskeletal Disorder, Neurologic Disorder, Osteoarthritis (OA) Additional Past Medical History / Comment(s): Ulcerative colitis, diver ticulitis, parkinson's disease, CVA which pt was unaware of having-showed on cat scan, several DVTs bilateral legs and pt states since she has had intermittent bilateral ankle edema, thrombophlebitis, PE-pt cannot recall laterallity, generalized arthritis, urinary leakage, UTIs, shingles x 2 History of Any Multi-Drug Resistant Organisms: ESBL Date of last positivie culture/infection: 07/09/21 ESBL-E.coli MDRO Source:: URINE ESBL Past Surgical History: Appendectomy, Cholecystectomy, Hysterectomy, Orthopedic Surgery, Tubal Ligation Additional Past Surgical History / Comment(s): L shoulder injury with surgery to repair, removals of DVTs bilateral legs, cataract removal/lens implants, colonoscopies, hemorrohoids surgery Past Anesthesia/Blood Transfusion Reactions: Postoperative Nausea & Vomiting (PONV) Additional Past Anesthesia/Blood Transfusion Reaction / Comment(s): Pt received blood with hysterectomy without reaction. Past Psychological History: Anxiety Smoking Status: Never smoker Past Alcohol Use History: None Reported Past Drug Use History: None Reported - Past Family History Father Family Medical History: Asthma, Cancer, COPD Additional Family Medical History / Comment(s): Gallbladder cancer Mother Family Medical History: Myocardial Infarction ([place]) Additional Family Medical History / Comment(s): Mother of a [place] at the age of 48 yrs. Sister(s) Family Medical History: Deep Vein Thrombosis (DVT) Additional Family Medical History / Comment(s): Sister of a blood clot at age 38 yrs-pt cannot recall specifics. <Keenan Barry - Last Filed: 12/02/21 20:59> General Exam <Keenan Barry - Last Filed: 12/02/21 20:59> - General Exam Comments Initial Comments: GENERAL: Patient is well-developed and well-nourished. Patient is nontoxic and well- hydrated and is in no acute distress. ENT: Neck is soft and supple. No significant lymphadenopathy is noted. Oropharynx is clear. Moist mucous membranes. Neck has full range of motion without eliciting any pain. EYES: The sclera were anicteric and conjunctiva were pink and moist. Extraocular movements were intact and pupils were equal round and reactive to light. Eyelids were unremarkable. PULMONARY: Unlabored respirations. Good breath sounds bilaterally. No audible rales rhonchi or wheezing was noted. CARDIOVASCULAR: There is a regular rate and rhythm without any murmurs gallops or rubs. ABDOMEN: Soft and nontender with normal bowel sounds. SKIN: Skin is clear with no lesions or rashes and otherwise unremarkable. NEUROLOGIC: Patient is alert and oriented 2. Cranial nerves II through XII are grossly intact. Motor and sensory are also intact. Normal speech, volume and content. Symmetrical smile. MUSCULOSKELETAL: Normal extremities with adequate strength and full range of motion. No lower extremity swelling or edema. No calf tenderness. LYMPHATICS: No significant lymphadenopathy is noted PSYCHIATRIC: Normal psychiatric evaluation. (Keenan Barry) Course Vital Signs 12/02/21 19:30 Temperature 98.1 F Pulse Rate 69 Respiratory 16 Rate Blood Pressure 141/71 O2 Sat by Pulse 100 Oximetry Medical Decision Making <Keenan Barry - Last Filed: 12/02/21 20:59> - Lab Data Result diagrams: 12/02/21 20:51 12/02/21 20:02 <Eris Hardy - Last Filed: 12/02/21 23:02> - Medical Decision Making EKG shows sinus rhythm at 65 bpm SD interval 164 QRS is 91 Q-T intervals 360 QTC is 371. Patient's EKG shows no ST segment elevation or depression. Dr. Larry will be taking over the care of this patient at 9 PM (Keenan Barry) - Lab Data Lab Results 12/02/21 12/02/21 12/02/21 Range/Units 20:02 20:02 20:02 WBC (3.8-10.6) k/uL RBC (3.80-5.40) m/uL Hgb (11.4-16.0) gm/dL Hct (34.0-46.0) % MCV (80.0-100.0) fL MCH (25.0-35.0) pg MCHC (31.0-37.0) g/dL RDW (11.5-15.5) % Plt Count (150-450) k/uL MPV Neutrophils % % Lymphocytes % % Monocytes % % Eosinophils % % Basophils % % Neutrophils # (1.3-7.7) k/uL Lymphocytes # (1.0-4.8) k/uL Monocytes # (0-1.0) k/uL Eosinophils # (0-0.7) k/uL Basophils # (0-0.2) k/uL PT 22.5 H (9.0-12.0) sec INR 2.2 H (<1.2) APTT 23.0 (22.0-30.0) sec Sodium 139 (137-145) mmol/L Potassium 4.1 (3.5-5.1) mmol/L Chloride 106 (98-107) mmol/L Carbon Dioxide 28 (22-30) mmol/L Anion Gap 5 mmol/L BUN 28 H (7-17) mg/dL Creatinine 0.92 (0.52-1.04) mg/dL Est GFR (CKD-EPI)AfAm 68 (>60 ml/min/1.73 sqM) Est GFR (CKD-EPI)NonAf 59 (>60 ml/min/1.73 sqM) Glucose 89 (74-99) mg/dL Calcium 8.0 L (8.4-10.2) mg/dL Magnesium 2.2 (1.6-2.3) mg/dL Total Bilirubin 0.6 (0.2-1.3) mg/dL AST 20 (14-36) U/L ALT <6 (4-34) U/L Alkaline Phosphatase 55 (38-126) U/L Troponin I <0.012 (0.000-0.034) ng/mL Total Protein 5.7 L (6.3-8.2) g/dL Albumin 3.0 L (3.5-5.0) g/dL 12/02/21 Range/Units 20:51 WBC 6.2 (3.8-10.6) k/uL RBC 4.17 (3.80-5.40) m/uL Hgb 13.1 (11.4-16.0) gm/dL Hct 39.6 (34.0-46.0) % MCV 94.8 (80.0-100.0) fL MCH 31.4 (25.0-35.0) pg MCHC 33.1 (31.0-37.0) g/dL RDW 12.7 (11.5-15.5) % Plt Count 214 (150-450) k/uL MPV 7.7 Neutrophils % 64 % Lymphocytes % 27 % Monocytes % 5 % Eosinophils % 2 % Basophils % 1 % Neutrophils # 3.9 (1.3-7.7) k/uL Lymphocytes # 1.7 (1.0-4.8) k/uL Monocytes # 0.3 (0-1.0) k/uL Eosinophils # 0.1 (0-0.7) k/uL Basophils # 0.0 (0-0.2) k/uL PT (9.0-12.0) sec INR (<1.2) APTT (22.0-30.0) sec Sodium (137-145) mmol/L Potassium (3.5-5.1) mmol/L Chloride (98-107) mmol/L Carbon Dioxide (22-30) mmol/L Anion Gap mmol/L BUN (7-17) mg/dL Creatinine (0.52-1.04) mg/dL Est GFR (CKD-EPI)AfAm (>60 ml/min/1.73 sqM) Est GFR (CKD-EPI)NonAf (>60 ml/min/1.73 sqM) Glucose (74-99) mg/dL Calcium (8.4-10.2) mg/dL Magnesium (1.6-2.3) mg/dL Total Bilirubin (0.2-1.3) mg/dL AST (14-36) U/L ALT (4-34) U/L Alkaline Phosphatase (38-126) U/L Troponin I (0.000-0.034) ng/mL Total Protein (6.3-8.2) g/dL Albumin (3.5-5.0) g/dL Disposition <Keenan Barry - Last Filed: 12/02/21 20:59> Is patient prescribed a controlled substance at d/c from ED?: No <Eris Hardy - Last Filed: 12/02/21 23:02> Clinical Impression: Chest pain Disposition: HOME SELF-CARE Condition: Good Instructions (If sedation given, give patient instructions): Chest Pain (ED) Referrals: Jesus Cooney MD [Primary Care Provider] - 1-2 days
[2021-12-02 19:38] VITALS: RESP 16; TEMP 98.1
--- NOTE | 2021-12-02 20:50 | XR ---
EXAMINATION TYPE: XR chest 2V DATE OF EXAM: 12/02/2021 COMPARISON: Chest x-ray November 08, 2021 HISTORY: Chest pain. TECHNIQUE: Frontal and lateral views of the chest are obtained. FINDINGS: There is no focal air space opacity, pleural effusion, or pneumothorax seen. The cardiac silhouette size is stable and mildly enlarged. The osseous structures are intact. Overlying EKG kp ds. IMPRESSION: Mild cardiomegaly without acute pulmonary process.
[2021-12-02 20:58] LABS: INR 2.2 (<1.2); Prothrombin Time 22.5 sec (9.0-12.0)
[2021-12-02 21:03] LABS: Basophils % (A) 1 %; Eosinophils # (A) 0.1 k/uL (0-0.7); Eosinophils % (A) 2 %; HCT 39.6 % (34.0-46.0); HGB 13.1 gm/dL (11.4-16.0); Lymphocytes # (A) 1.7 k/uL (1.0-4.8); Lymphocytes % (A) 27 %; MCH 31.4 pg (25.0-35.0); MCHC 33.1 g/dL (31.0-37.0); MCV 94.8 fL (80.0-100.0); Mean Platelet Volume 7.7; Monocytes # (A) 0.3 k/uL (0-1.0); Monocytes % (A) 5 %; Neutrophils # (A) 3.9 k/uL (1.3-7.7); Neutrophils % (A) 64 %; Platelet Count 214 k/uL (150-450); RBC 4.17 m/uL (3.80-5.40); RDW 12.7 % (11.5-15.5); WBC 6.2 k/uL (3.8-10.6)
[2021-12-02 21:04] LABS: ALT <6 U/L (4-34); AST 20 U/L (14-36); African American GFR (CKD) 68 (>60 ml/min/1.73 sqM); Alkaline Phosphatase 55 U/L (38-126); Anion Gap 5 mmol/L; Blood Urea Nitrogen 28 mg/dL (7-17); Carbon Dioxide 28 mmol/L (22-30); Chloride 106 mmol/L (98-107); Glucose 89 mg/dL (74-99); Magnesium 2.2 mg/dL (1.6-2.3); Non-African American GFR(CKD) 59 (>60 ml/min/1.73 sqM); Potassium 4.1 mmol/L (3.5-5.1); Sodium 139 mmol/L (137-145); Total Bilirubin 0.6 mg/dL (0.2-1.3); Total Protein 5.7 g/dL (6.3-8.2)
[2021-12-02 23:17] VITALS: BP 131/78; PULSE 78
== END 2021-12-03 | disposition home or self-care (01) ==
LOC: EC 19:19
DX: R07.9 Chest pain, unspecified (principal); Z82.49 Family history of ischemic heart disease and other diseases of the circulatory system; J44.9 Chronic obstructive pulmonary disease, unspecified; Z86.73 Personal history of transient ischemic attack (TIA), and cerebral infarction without residual deficits; I10 Essential (primary) hypertension; K21.9 Gastro-esophageal reflux disease without esophagitis; Z79.899 Other long term (current) drug therapy; Z88.0 Allergy status to penicillin; Z88.7 Allergy status to serum and vaccine; Z88.8 Allergy status to other drugs, medicaments and biological substances
CPT/HCPCS: 36415; 71046; 80053; 83735; 84484; 85025; 85610; 85730; 93005; 99285

== ENCOUNTER 2022-01-20 17:22 | Emergency (ER) | payer MEDICARE, OTHER ==
--- NOTE | 2022-01-20 17:49 | ED ---
Chest Pain HPI - General Stated Complaint: chest pain Time Seen by Provider: 01/20/22 17:22 Source: patient, EMS, RN notes reviewed, old records reviewed Mode of arrival: EMS - History of Present Illness Initial Comments: The 1-year-old female brought in by EMS with complaints of retrosternal chest pain. Chart around 4:10 PM this afternoon 10/10 severity radiated to her left shoulder she was given 325 of aspirin and 3 nitroglycerin pain now is rated as a 9/10 severity. No fevers chills nausea vomiting sweats. She does have a known history of CVA TIA history history DVT memory impairment ulcerative colitis and diverticulitis among other medical issues. No reports of fevers chills sweats cough or phlegm production MD Complaint: chest pain - Related Data Home Medications Medication Instructions Recorded Confirmed Omeprazole [PriLOSEC] 20 mg PO DAILY@0600 01/11/19 01/20/22 bisacodyL [Dulcolax] 5 mg PO DAILY 02/19/19 01/20/22 Carbidopa-Levodopa 25-100 mg 1 tab PO QID 07/30/19 01/20/22 [Sinemet 25-100 mg] Carbidopa/Levodopa [Sinemet CR 1 tab PO HS@2100 10/15/19 01/20/22 50-200 mg] Melatonin [Melatonin ER] 10 mg PO HS 10/15/19 01/20/22 Mirabegron [Myrbetriq] 25 mg PO HS 10/15/19 01/20/22 lisinopriL [Zestril] 10 mg PO DAILY 10/15/19 01/20/22 Atorvastatin [Lipitor] 40 mg PO HS 10/19/20 01/20/22 Cholecalciferol [Vitamin D3 (25 50 mcg PO DAILY 10/19/20 01/20/22 Mcg = 1000 Iu)] Nitroglycerin Sl Tabs [Nitrostat] 0.4 mg SL Q5M PRN 10/19/20 01/20/22 polyethylene glycoL 3350 [Miralax] 17 gm PO BID 10/19/20 01/20/22 Mag Hydrox/Aluminum Hyd/Simeth 10 ml PO Q8H PRN 11/24/20 01/20/22 [Mylanta Maximum Strength Liq] Metoprolol Tartrate [Lopressor] 25 mg PO BID 11/24/20 01/20/22 Furosemide [Lasix] 10 mg PO DAILY 02/10/21 01/20/22 Lactose-Reduced Food [Ensure Plus] 237 ml PO TID@0900,1400,2100 02/10/21 01/20/22 clonazePAM [KlonoPIN] 0.5 mg PO BID 02/10/21 01/20/22 Acetaminophen Tab [Tylenol] 650 mg PO Q4H PRN 10/27/21 01/20/22 Loperamide [Imodium] 2 - 4 mg PO QID PRN MDD 16mg 10/27/21 01/20/22 QUEtiapine FUMARATE [SEROquel] 25 mg PO BID 10/27/21 01/20/22 Warfarin [Coumadin] 1 mg PO MOTH@1700 10/27/21 01/20/22 Warfarin [Coumadin] 2 mg PO SUTUWEFRSA@1700 10/27/21 01/20/22 Previous Rx's Medication Instructions Recorded traMADol HCL [Ultram] 50 mg PO Q8H PRN #4 tab 01/11/21 Nitrofurantoin Monohyd/M-Cryst 100 mg PO Q12HR #20 cap 01/20/22 [Macrobid] Allergies Allergy/AdvReac Type Severity Reaction Status Date / Time Influenza Virus Vaccines Allergy Swelling Verified 01/20/22 18:15 Penicillins Allergy Anaphylaxis Verified 01/20/22 18:15 Iodinated Contrast Media AdvReac Chest Pain Verified 01/20/22 18:15 [Iodinated Contrast- Oral and IV Dye] Review of Systems ROS Statement: Those systems with pertinent positive or pertinent negative responses have been documented in the HPI. ROS Other: All systems not noted in ROS Statement are negative. EKG Findings - EKG Results: EKG: interpreted by SHAKIR, sinus rhythm (Normal sinus rhythm a 61. Interval 162 QRS duration 98 QT since QTC 394/[address]-T wave changes) Past Medical History Past Medical History: Asthma, Heart Failure, CVA/TIA, Deep Vein Thrombosis (DVT), GERD/Reflux, Hypertension, Memory Impairment, Musculoskeletal Disorder, Neurologic Disorder, Osteoarthritis (OA) Additional Past Medical History / Comment(s): Ulcerative colitis, diverticulitis, parkinson's disease, CVA which pt was unaware of having-showed on cat scan, several DVTs bilateral legs and pt states since she has had intermittent bilateral ankle edema, thrombophlebitis, PE-pt cannot recall laterallity, generalized arthritis, urinary leakage, UTIs, shingles x 2 History of Any Multi-Drug Resistant Organisms: ESBL Date of last positivie culture/infection: 07/09/21 ESBL-E.coli MDRO Source:: URINE ESBL Past Surgical History: Appendectomy, Cholecystectomy, Hysterectomy, Orthopedic Surgery, Tubal Ligation Additional Past Surgical History / Comment(s): L shoulder injury with surgery to repair, removals of DVTs bilateral legs, cataract removal/lens implants, colonoscopies, hemorrohoids surgery Past Anesthesia/Blood Transfusion Reactions: Postoperative Nausea & Vomiting (PONV) Additional Past Anesthesia/Blood Transfusion Reaction / Comment(s): Pt received blood with hysterectomy without reaction. Past Psychological History: Anxiety Smoking Status: Never smoker Past Alcohol Use History: None Reported Past Drug Use History: None Reported - Past Family History Father Family Medical History: Asthma, Cancer, COPD Additional Family Medical History / Comment(s): Gallbladder cancer Mother Family Medical History: Myocardial Infarction ([place]) Additional Family Medical History / Comment(s): Mother of a [place] at the age of 48 yrs. Sister(s) Family Medical History: Deep Vein Thrombosis (DVT) Additional Family Medical History / Comment(s): Sister of a blood clot at age 38 yrs-pt cannot recall specifics. General Exam - General Exam Comments Initial Comments: This a well-developed well-nourished awake alert female Limitations: no limitations General appearance: alert, in no apparent distress Head exam: Present: atraumatic, normocephalic, normal inspection Eye exam: Present: normal appearance, PERRL, EOMI. Absent: scleral icterus, conjunctival injection, periorbital swelling ENT exam: Present: normal exam, mucous membranes moist Neck exam: Present: normal inspection, full ROM, other (No stridor JVD or bruits). Absent: tenderness, meningismus, lymphadenopathy Respiratory exam: Present: normal lung sounds bilaterally, chest wall tenderness (Tenderness to palpation over the left costal sternal margin associated reproducible pain patient complained of.). Absent: respiratory distress, wheezes, rales, rhonchi, stridor Cardiovascular Exam: Present: regular rate, normal rhythm, normal heart sounds. Absent: systolic murmur, diastolic murmur, rubs, gallop, clicks GI/Abdominal exam: Present: soft, normal bowel sounds. Absent: distended, tenderness, guarding, rebound, rigid Extremities exam: Present: normal inspection, full ROM, normal capillary refill. Absent: tenderness, pedal edema, joint swelling, calf tenderness Back exam: Present: normal inspection Neurological exam: Present: alert, oriented X3, CN II-XII intact Psychiatric exam: Present: normal affect, normal mood Skin exam: Present: warm, dry, intact, normal color. Absent: rash Course Vital Signs 01/20/22 17:51 Temperature 98.2 F Pulse Rate 63 Respiratory 18 Rate Blood Pressure 159/70 O2 Sat by Pulse 98 Oximetry Chest Pain MDM - MDM I did discuss findings with patient the chest pain is consistent with chest wall pain noncardiac per pulmonary in nature. Patient was concerned about possible UTI UA does indicate this. Patient was placed on appropriate antibiotics she was hydrated she will be discharged back to her [facility]. Disposition Clinical Impression: Chest wall syndrome, Costochondritis, Urinary tract infection, Dehydration Disposition: HOME SELF-CARE Condition: Good Instructions (If sedation given, give patient instructions): Costochondritis (ED), Chest Wall Pain (ED), Urinary Tract Infection in Men (ED) Prescriptions: Nitrofurantoin Monohyd/M-Cryst [Macrobid] 100 mg PO Q12HR #20 cap Is patient prescribed a controlled substance at d/c from ED?: No Referrals: Jesus Cooney MD [Primary Care Provider] - 1-2 days Decision Date: 01/20/22 Decision Time: 21:00
[2022-01-20 17:58] VITALS: RESP 18; TEMP 98.2
[2022-01-20 18:02] LABS: Basophils % (A) 1 %; Eosinophils # (A) 0.2 k/uL (0-0.7); Eosinophils % (A) 4 %; HCT 37.4 % (34.0-46.0); HGB 12.9 gm/dL (11.4-16.0); Lymphocytes % (A) 42 %; MCH 32.4 pg (25.0-35.0); MCHC 34.5 g/dL (31.0-37.0); MCV 94.1 fL (80.0-100.0); Mean Platelet Volume 8.1; Monocytes # (A) 0.2 k/uL (0-1.0); Monocytes % (A) 5 %; Neutrophils # (A) 2.2 k/uL (1.3-7.7); Neutrophils % (A) 46 %; Platelet Count 212 k/uL (150-450); RBC 3.98 m/uL (3.80-5.40); RDW 12.9 % (11.5-15.5); WBC 4.7 k/uL (3.8-10.6)
[2022-01-20 18:11] LABS: Partial Thromboplastin Time 24.4 sec (22.0-30.0); Prothrombin Time 19.8 sec (9.0-12.0)
[2022-01-20 18:17] LABS: ALT <6 U/L (4-34); AST 25 U/L (14-36); African American GFR (CKD) 84 (>60 ml/min/1.73 sqM); Albumin 3.5 g/dL (3.5-5.0); Alkaline Phosphatase 56 U/L (38-126); Anion Gap 3 mmol/L; Blood Urea Nitrogen 26 mg/dL (7-17); Calcium 8.4 mg/dL (8.4-10.2); Carbon Dioxide 33 mmol/L (22-30); Chloride 105 mmol/L (98-107); Glucose 113 mg/dL (74-99); Lipase 35 U/L (23-300); Magnesium 2.1 mg/dL (1.6-2.3); Non-African American GFR(CKD) 73 (>60 ml/min/1.73 sqM); Sodium 141 mmol/L (137-145); Total Bilirubin 0.6 mg/dL (0.2-1.3); Total Protein 6.4 g/dL (6.3-8.2)
[2022-01-20 18:21] LABS: Potassium 4.2 mmol/L (3.5-5.1)
--- NOTE | 2022-01-20 18:35 | XR ---
EXAMINATION TYPE: XR chest 2V DATE OF EXAM: 01/20/2022 COMPARISON: 12/02/2021 HISTORY: Chest pain TECHNIQUE: FINDINGS: Heart is normal. Lungs are clear of infiltrate. No heart failure. Costophrenic angles are f airly clear. There are chest leads. IMPRESSION: No active cardiopulmonary disease. No change.
[2022-01-20 20:13] LABS: Appearance,Urine Clear (Clear); Bacteria,Urine Occasional /hpf; Bilirubin,Urine Negative (Negative); Blood,Urine Negative (Negative); Color,Urine Light Yellow; Glucose,Urine (UA) Negative (Negative); Ketones,Urine Negative (Negative); Leukocyte Esterase,Urine Moderate (Negative); Nitrite,Urine Positive (Negative); Protein,Urine Negative (Negative); RBC,Urine 1 /hpf (0-5); Specific Gravity,Urine 1.013 (1.001-1.035); Squamous Epithelial Cell,Urine 1 /hpf (0-4); Urobilinogen,Urine <2.0 mg/dL (<2.0); WBC,Urine 12 /hpf (0-5)
[2022-01-20] MEDS ORDERED: NITROFURANTOIN MONOHYD/M-CRYST 100 MG CAP PO STA (20:43)
[2022-01-20 21:25] VITALS: BP 152/65; PULSE 61
== END 2022-01-20 21:48 | disposition home or self-care (01) ==
LOC: EC 17:22
DX: M94.0 Chondrocostal junction syndrome [Tietze] (principal); R07.1 Chest pain on breathing; N39.0 Urinary tract infection, site not specified; E86.0 Dehydration; J45.909 Unspecified asthma, uncomplicated; I11.0 Hypertensive heart disease with heart failure; I50.9 Heart failure, unspecified; K21.9 Gastro-esophageal reflux disease without esophagitis; Z86.73 Personal history of transient ischemic attack (TIA), and cerebral infarction without residual deficits; Z88.7 Allergy status to serum and vaccine; Z88.0 Allergy status to penicillin; Z91.041 Radiographic dye allergy status; Z79.899 Other long term (current) drug therapy; Z79.01 Long term (current) use of anticoagulants
CPT/HCPCS: 36415; 71046; 80053; 81001; 83690; 83735; 83880; 84484; 85025; 85610; 85730; 87086; 93005; 99285

== ENCOUNTER 2022-01-27 12:21 | Observation (INO) | payer MEDICARE, OTHER ==
[2022-01-27] MEDS ORDERED: SODIUM CHLORIDE 0.9% 500 ML 500 ML IV ONE (12:50)
--- NOTE | 2022-01-27 13:12 | ED ---
Altered Mental Status HPI - General Chief Complaint: Altered Mental Status Stated Complaint: AMS Time Seen by Provider: 01/27/22 12:50 Source: patient, EMS, RN notes reviewed Mode of arrival: EMS Limitations: no limitations - History of Present Illness Initial Comments: 81-year-old female presents emergency Department via EMS from [facility] on [facility] for altered mental status. Patient is currently being treated for urinary tract infection on Macrobid started having increasing lethargy, confusion states that she is unable to sit in the chair in which she states she keeps place herself on the ground. No reported falls no trauma. Patient has had ER visits for chest pain patient is not very forthcoming with information this time. - Related Data Home Medications Medication Instructions Recorded Confirmed Omeprazole [PriLOSEC] 20 mg PO DAILY@0600 01/11/19 01/27/22 bisacodyL [Dulcolax] 5 mg PO DAILY@0900 PRN 02/19/19 01/27/22 Carbidopa-Levodopa 25-100 mg 1 tab PO QID@,,,07/30/19 01/27/22 [Sinemet 25-100 mg] Carbidopa/Levodopa [Sinemet CR 1 tab PO HS@209910/15/19 01/27/22 50-200 mg] Melatonin [Melatonin ER] 10 mg PO HS@209910/15/19 01/27/22 Mirabegron [Myrbetriq] 25 mg PO HS@209910/15/19 01/27/22 lisinopriL [Zestril] 10 mg PO DAILY@0900 10/15/19 01/27/22 Atorvastatin [Lipitor] 40 mg PO HS@209910/19/20 01/27/22 Cholecalciferol [Vitamin D3 (25 50 mcg PO DAILY@0900 10/19/20 01/27/22 Mcg = 1000 Iu)] Nitroglycerin Sl Tabs [Nitrostat] 0.4 mg SL Q5M PRN 10/19/20 01/27/22 polyethylene glycoL 3350 [Miralax] 17 gm PO BID@0900,209910/19/20 01/27/22 Mag Hydrox/Aluminum Hyd/Simeth 10 ml PO Q8H PRN 11/24/20 01/27/22 [Mylanta Maximum Strength Liq] Metoprolol Tartrate [Lopressor] 25 mg PO BID@0900,2100 11/24/20 01/27/22 Furosemide [Lasix] 10 mg PO DAILY@0900 02/10/21 01/27/22 Lactose-Reduced Food [Ensure Plus] 237 ml PO TID@0900,1400,209902/10/21 clonazePAM [KlonoPIN] 0.5 mg PO BID@0900,209902/10/21 01/27/22 Acetaminophen Tab [Tylenol] 650 mg PO Q4H PRN 10/27/21 01/27/22 Loperamide [Imodium] 2 - 4 mg PO QID PRN MDD 16mg 10/27/21 01/27/22 QUEtiapine FUMARATE [SEROquel] 25 mg PO BID@0900,209910/27/21 01/27/22 Warfarin [Coumadin] 1 mg PO MOTH@1700 10/27/21 01/27/22 Warfarin [Coumadin] 2 mg PO SUTUWEFRSA@1700 10/27/21 01/27/22 Nitrofurantoin Monohyd/M-Cryst 100 mg PO BID@0900,1700 01/27/22 01/27/22 [Macrobid] Previous Rx's Medication Instructions Recorded traMADol HCL [Ultram] 50 mg PO Q8H PRN #4 tab 01/11/21 Allergies Allergy/AdvReac Type Severity Reaction Status Date / Time Influenza Virus Vaccines Allergy Swelling Verified 01/27/22 16:36 Penicillins Allergy Anaphylaxis Verified 01/27/22 16:36 Iodinated Contrast Media AdvReac Chest Pain Verified 01/27/22 16:36 [Iodinated Contrast- Oral and IV Dye] Review of Systems ROS Statement: Those systems with pertinent positive or pertinent negative responses have been documented in the HPI. ROS Other: All systems not noted in ROS Statement are negative. Past Medical History Past Medical History: Asthma, Heart Failure, CVA/TIA, Deep Vein Thrombosis (DVT), GERD/Reflux, Hypertension, Memory Impairment, Musculoskeletal Disorder, Neurologic Disorder, Osteoarthritis (OA) Additional Past Medical History / Comment(s): Ulcerative colitis, d iverticulitis, parkinson's disease, CVA which pt was unaware of having-showed on cat scan, several DVTs bilateral legs and pt states since she has had intermittent bilateral ankle edema, thrombophlebitis, PE-pt cannot recall laterallity, generalized arthritis, urinary leakage, UTIs, shingles x 2 History of Any Multi-Drug Resistant Organisms: ESBL Date of last positivie culture/infection: 07/09/21 ESBL-E.coli MDRO Source:: URINE ESBL Past Surgical History: Appendectomy, Cholecystectomy, Hysterectomy, Orthopedic Surgery, Tubal Ligation Additional Past Surgical History / Comment(s): L shoulder injury with surgery to repair, removals of DVTs bilateral legs, cataract removal/lens implants, colonoscopies, hemorrohoids surgery Past Anesthesia/Blood Transfusion Reactions: Postoperative Nausea & Vomiting (PONV) Additional Past Anesthesia/Blood Transfusion Reaction / Comment(s): Pt received blood with hysterectomy without reaction. Past Psychological History: Anxiety Smoking Status: Never smoker Past Alcohol Use History: None Reported Past Drug Use History: None Reported - Past Family History Father Family Medical History: Asthma, Cancer, COPD Additional Family Medical History / Comment(s): Gallbladder cancer Mother Family Medical History: Myocardial Infarction ([place]) Additional Family Medical History / Comment(s): Mother of a [place] at the age of 48 yrs. Sister(s) Family Medical History: Deep Vein Thrombosis (DVT) Additional Family Medical History / Comment(s): Sister of a blood clot at age 38 yrs-pt cannot recall specifics. General Exam Limitations: no limitations General appearance: alert, in no apparent distress, lethargic Head exam: Present: atraumatic, normocephalic, normal inspection Eye exam: Present: normal appearance, PERRL, EOMI. Absent: scleral icterus, conjunctival injection, periorbital swelling ENT exam: Present: normal exam, mucous membranes moist Neck exam: Present: normal inspection, full ROM. Absent: tenderness, meningi smus, lymphadenopathy Respiratory exam: Present: normal lung sounds bilaterally. Absent: respiratory distress, wheezes, rales, rhonchi, stridor Cardiovascular Exam: Present: regular rate, normal rhythm, systolic murmur. Absent: normal heart sounds, diastolic murmur, rubs, gallop, clicks GI/Abdominal exam: Present: soft, tenderness, normal bowel sounds. Absent: distended, guarding, rebound, rigid Neurological exam: Present: alert. Absent: oriented X3 Course Vital Signs 01/27/22 12:30 Temperature 97.5 F L Pulse Rate 54 L Respiratory 18 Rate Blood Pressure 166/84 O2 Sat by Pulse 97 Oximetry Medical Decision Making - Medical Decision Making -year-old presented from [facility] on the leg for altered mental status. Stated that she does have some underlying memory issues but she is acutely altered. Patient is currently being treated for urinary tract infection patient's workup is negative this time patient remains to be altered. - Lab Data Result diagrams: 01/27/22 13:02 01/27/22 13:02 Lab Results 01/27/22 01/27/22 01/27/22 Range/Units 13:02 13:02 13:02 WBC 4.5 (3.8-10.6) k/uL RBC 3.95 (3.80-5.40) m/uL Hgb 12.7 (11.4-16.0) gm/dL Hct 37.0 (34.0-46.0) % MCV 93.5 (80.0-100.0) fL MCH 32.1 (25.0-35.0) pg MCHC 34.3 (31.0-37.0) g/dL RDW 12.6 (11.5-15.5) % Plt Count 152 (150-450) k/uL MPV 8.5 Neutrophils % 48 % Lymphocytes % 40 % Monocytes % 7 % Eosinophils % 2 % Basophils % 1 % Neutrophils # 2.2 (1.3-7.7) k/uL Lymphocytes # 1.8 (1.0-4.8) k/uL Monocytes # 0.3 (0-1.0) k/uL Eosinophils # 0.1 (0-0.7) k/uL Basophils # 0.1 (0-0.2) k/uL PT 18.6 H (9.0-12.0) sec INR 1.8 H (<1.2) APTT 23.8 (22.0-30.0) sec Sodium (137-145) mmol/L Potassium (3.5-5.1) mmol/L Chloride (98-107) mmol/L Carbon Dioxide (22-30) mmol/L Anion Gap mmol/L BUN (7-17) mg/dL Creatinine (0.52-1.04) mg/dL Est GFR (CKD-EPI)AfAm (>60 ml/min/1.73 sqM) Est GFR (CKD-EPI)NonAf (>60 ml/min/1.73 sqM) Glucose (74-99) mg/dL Plasma Lactic Acid Abdiaziz (0.7-2.0) mmol/L Calcium (8.4-10.2) mg/dL Total Bilirubin (0.2-1.3) mg/dL AST (14-36) U/L ALT (4-34) U/L Alkaline Phosphatase (38-126) U/L Ammonia (<30) umol/L Troponin I (0.000-0.034) ng/mL Total Protein (6.3-8.2) g/dL Albumin (3.5-5.0) g/dL Urine Color Yellow Urine Appearance Cloudy H (Clear) Urine pH 6.5 (5.0-8.0) Ur Specific [place] 1.005 (1.001-1.035) Urine Protein Negative (Negative) Urine Glucose (UA) Negative (Negative) Urine Ketones Negative (Negative) Urine Blood Negative (Negative) Urine Nitrite Negative (Negative) Urine Bilirubin Negative (Negative) Urine Urobilinogen <2.0 (<2.0) mg/dL Ur Leukocyte Esterase Negative (Negative) Urine WBC 3 (0-5) /hpf Ur Squamous Epith Cells 3 (0-4) /hpf Amorphous Sediment Moderate H (None) /hpf Urine Bacteria Occasional H (None) /hpf Urine Mucus Rare H (None) /hpf 01/27/22 01/27/22 01/27/22 Range/Units 13:02 13:02 13:02 WBC (3.8-10.6) k/uL RBC (3.80-5.40) m/uL Hgb (11.4-16.0) gm/dL Hct (34.0-46.0) % MCV (80.0-100.0) fL MCH (25.0-35.0) pg MCHC (31.0-37.0) g/dL RDW (11.5-15.5) % Plt Count (150-450) k/uL MPV Neutrophils % % Lymphocytes % % Monocytes % % Eosinophils % % Basophils % % Neutrophils # (1.3-7.7) k/uL Lymphocytes # (1.0-4.8) k/uL Monocytes # (0-1.0) k/uL Eosinophils # (0-0.7) k/uL Basophils # (0-0.2) k/uL PT (9.0-12.0) sec INR (<1.2) APTT (22.0-30.0) sec Sodium 140 (137-145) mmol/L Potassium 3.8 (3.5-5.1) mmol/L Chloride 107 (98-107) mmol/L Carbon Dioxide 31 H (22-30) mmol/L Anion Gap 2 mmol/L BUN 21 H (7-17) mg/dL Creatinine 0.83 (0.52-1.04) mg/dL Est GFR (CKD-EPI)AfAm 77 (>60 ml/min/1.73 sqM) Est GFR (CKD-EPI)NonAf 67 (>60 ml/min/1.73 sqM) Glucose 83 (74-99) mg/dL Plasma Lactic Acid Abdiaziz 1.1 (0.7-2.0) mmol/L Calcium 8.2 L (8.4-10.2) mg/dL Total Bilirubin 0.9 (0.2-1.3) mg/dL AST 20 (14-36) U/L ALT <6 (4-34) U/L Alkaline Phosphatase 73 (38-126) U/L Ammonia <9 (<30) umol/L Troponin I <0.012 (0.000-0.034) ng/mL Total Protein 5.7 L (6.3-8.2) g/dL Albumin 3.2 L (3.5-5.0) g/dL Urine Color Urine Appearance (Clear) Urine pH (5.0-8.0) Ur Specific [place] (1.001-1.035) Urine Protein (Negative) Urine Glucose (UA) (Negative) Urine Ketones (Negative) Urine Blood (Negative) Urine Nitrite (Negative) Urine Bilirubin (Negative) Urine Urobilinogen (<2.0) mg/dL Ur Leukocyte Esterase (Negative) Urine WBC (0-5) /hpf Ur Squamous Epith Cells (0-4) /hpf Amorphous Sediment (None) /hpf Urine Bacteria (None) /hpf Urine Mucus (None) /hpf Disposition Clinical Impression: Altered mental status Disposition: ADMITTED IP TO THIS HOSP Condition: Fair Referrals: Jesus Cooney MD [Primary Care Provider] - 1-2 days
[2022-01-27 13:25] LABS: Basophils # (A) 0.1 k/uL (0-0.2); Basophils % (A) 1 %; Eosinophils # (A) 0.1 k/uL (0-0.7); Eosinophils % (A) 2 %; HGB 12.7 gm/dL (11.4-16.0); Lymphocytes # (A) 1.8 k/uL (1.0-4.8); Lymphocytes % (A) 40 %; MCH 32.1 pg (25.0-35.0); MCHC 34.3 g/dL (31.0-37.0); MCV 93.5 fL (80.0-100.0); Mean Platelet Volume 8.5; Monocytes # (A) 0.3 k/uL (0-1.0); Monocytes % (A) 7 %; Neutrophils # (A) 2.2 k/uL (1.3-7.7); Neutrophils % (A) 48 %; Platelet Count 152 k/uL (150-450); RBC 3.95 m/uL (3.80-5.40); RDW 12.6 % (11.5-15.5); WBC 4.5 k/uL (3.8-10.6)
[2022-01-27 13:35] LABS: Lactic Acid, Venous 1.1 mmol/L (0.7-2.0)
[2022-01-27 13:36] LABS: ALT <6 U/L (4-34); AST 20 U/L (14-36); African American GFR (CKD) 77 (>60 ml/min/1.73 sqM); Albumin 3.2 g/dL (3.5-5.0); Alkaline Phosphatase 73 U/L (38-126); Anion Gap 2 mmol/L; Blood Urea Nitrogen 21 mg/dL (7-17); Calcium 8.2 mg/dL (8.4-10.2); Carbon Dioxide 31 mmol/L (22-30); Chloride 107 mmol/L (98-107); Glucose 83 mg/dL (74-99); Non-African American GFR(CKD) 67 (>60 ml/min/1.73 sqM); Potassium 3.8 mmol/L (3.5-5.1); Sodium 140 mmol/L (137-145); Total Bilirubin 0.9 mg/dL (0.2-1.3); Total Protein 5.7 g/dL (6.3-8.2)
[2022-01-27 13:37] LABS: INR 1.8 (<1.2); Partial Thromboplastin Time 23.8 sec (22.0-30.0); Prothrombin Time 18.6 sec (9.0-12.0)
--- NOTE | 2022-01-27 14:03 | XR ---
EXAMINATION TYPE: XR chest 2V DATE OF EXAM: 01/27/2022 COMPARISON: 01/20/2022 HISTORY: Shortness of breath TECHNIQUE: Frontal and lateral views of the chest are obtained. FINDINGS: Scattered senescent parenchymal changes noted. Hyperinflation compatible with COPD. No evidence for infiltrate. No evidence for atelectasis. Heart size is stable. Mediastinal structures are stable and grossly unremarkable. No evidence for hilar prominence. Degenerative changes dorsal spine. IMPRESSION: 1. No evidence for acute pulmonary disease.
--- NOTE | 2022-01-27 14:03 | CT ---
EXAMINATION TYPE: CT brain wo con DATE OF EXAM: 01/27/2022 COMPARISON: 06/23/2021 HISTORY: Altered mental status CT DLP: 1068.[address] of the brain was performed. The ventricles, basal cisterns and sulci overlying the cerebral convexities demonstrate mild enlargem ent. There is no evidence for intracranial hemorrhage or sulcal effacement. There is decreased attenuation about the periventricular white matter and deep white matter of both c erebral hemispheres, compatible with chronic small vessel ischemia. Differential diagnosis does inclu de demyelination. No mass effects are seen.No midline shift. Osseous calvarium is intact. If symptoms persist consider MRI. IMPRESSION: 1. Age related atrophic and chronic small vessel ischemic change without acute intracranial process s een at this time.
[2022-01-27 14:32] LABS: Amorphous Sediment,Urine Moderate /hpf; Appearance,Urine Cloudy (Clear); Bacteria,Urine Occasional /hpf; Bilirubin,Urine Negative (Negative); Blood,Urine Negative (Negative); Color,Urine Yellow; Glucose,Urine (UA) Negative (Negative); Ketones,Urine Negative (Negative); Leukocyte Esterase,Urine Negative (Negative); Mucus,Urine Rare /hpf; Nitrite,Urine Negative (Negative); PH, Urine 6.5 (5.0-8.0); Protein,Urine Negative (Negative); Specific Gravity,Urine 1.005 (1.001-1.035); Squamous Epithelial Cell,Urine 3 /hpf (0-4); Urobilinogen,Urine <2.0 mg/dL (<2.0); WBC,Urine 3 /hpf (0-5)
[2022-01-27] MEDS ORDERED: ONDANSETRON 4 MG/2 ML VIAL IVP PRN (17:39)
[2022-01-27] MEDS ORDERED: ACETAMINOPHEN TAB 325 MG TAB PO PRN (17:39)
[2022-01-27] MEDS ORDERED: NALOXONE 0.4 MG/ML 1 ML VIAL IV PRN (17:39)
[2022-01-28] MEDS ORDERED: ACETAMINOPHEN TAB 325 MG TAB PO PRN (01:22)
--- NOTE | 2022-01-28 01:42 | P.HPIM ---
History of Present Illness H&P Date: 01/27/22 Chief Complaint: changes in mental status 81 year old female with history of venous thromboembolism she is a resident of [facility] , and was sent in here for altered mental status, facility reported that she was acting strange and keep placing her self on the ground instead of chair. patient does not provide meaningful information, she has no acute complaints except for some vague left sided chest pain radiating to the left arm, however, ,unable to provide any meaningful further details, except saying she had that pain for years now. she also reports discomfort in her legs due to the [place]il[place] wrapping and having history of blood clots. when asked about review of systems , she gives a Yes answer to everything, which seems unreliable she was being treated for UTI, she still reports dysuria , however, no leukocytosis and UA was negative. she was being treated with macrobid , unknown duration at this time no reports of falls or head injury she is otherwise oriented to place time and person Review of Systems ROS unobtainable: due to mental status Past Medical History Past Medical History: Asthma, Heart Failure, CVA/TIA, Deep Vein Thrombosis (DVT), GERD/Reflux, Hypertension, Memory Impairment, Musculoskeletal Disorder, Neurologic Disorder, Osteoarthritis (OA) Additional Past Medical History / Comment(s): Ulcerative colitis, diverticu litis, parkinson's disease, CVA which pt was unaware of having-showed on cat scan, several DVTs bilateral legs and pt states since she has had intermittent bilateral ankle edema, thrombophlebitis, PE-pt cannot recall laterallity, generalized arthritis, urinary leakage, UTIs, shingles x 2 History of Any Multi-Drug Resistant Organisms: ESBL Date of last positivie culture/infection: 07/09/21 ESBL-E.coli MDRO Source:: URINE ESBL Past Surgical History: Appendectomy, Cholecystectomy, Hysterectomy, Orthopedic Surgery, Tubal Ligation Additional Past Surgical History / Comment(s): L shoulder injury with surgery to repair, removals of DVTs bilateral legs, cataract removal/lens implants, colonoscopies, hemorrohoids surgery Past Anesthesia/Blood Transfusion Reactions: Postoperative Nausea & Vomiting (PONV) Additional Past Anesthesia/Blood Transfusion Reaction / Comment(s): Pt received blood with hysterectomy without reaction. Past Psychological History: Anxiety Smoking Status: Never smoker Past Alcohol Use History: None Reported Past Drug Use History: None Reported - Past Family History Father Family Medical History: Asthma, Cancer, COPD Additional Family Medical History / Comment(s): Gallbladder cancer Mother Family Medical History: Myocardial Infarction ([place]) Additional Family Medical History / Comment(s): Mother of a [place] at the age of 48 yrs. Sister(s) Family Medical History: Deep Vein Thrombosis (DVT) Additional Family Medical History / Comment(s): Sister of a blood clot at age 38 yrs-pt cannot recall specifics. Medications and Allergies Home Medications Medication Instructions Recorded Confirmed Type Omeprazole [PriLOSEC] 20 mg PO DAILY@0600 01/11/19 01/27/22 History bisacodyL [Dulcolax] 5 mg PO DAILY@09 PRN 02/19/19 01/27/22 History Carbidopa-Levodopa 25-100 mg 1 tab PO QID@05,,,07/30/19 01/27/22 History [Sinemet 25-100 mg] Carbidopa/Levodopa [Sinemet CR 1 tab PO HS@209910/15/19 01/27/22 History 50-200 mg] Melatonin [Melatonin ER] 10 mg PO HS@209910/15/19 01/27/22 History Mirabegron [Myrbetriq] 25 mg PO HS@209910/15/19 01/27/22 History lisinopriL [Zestril] 10 mg PO DAILY@0900 10/15/19 01/27/22 History Atorvastatin [Lipitor] 40 mg PO HS@209910/19/20 01/27/22 History Cholecalciferol [Vitamin D3 (25 50 mcg PO DAILY@0900 10/19/20 01/27/22 History Mcg = 1000 Iu)] Nitroglycerin Sl Tabs [Nitrostat] 0.4 mg SL Q5M PRN 10/19/20 01/27/22 History polyethylene glycoL 3350 [Miralax] 17 gm PO BID@0900,209910/19/20 01/27/22 History Mag Hydrox/Aluminum Hyd/Simeth 10 ml PO Q8H PRN 11/24/20 01/27/22 History [Mylanta Maximum Strength Liq] Metoprolol Tartrate [Lopressor] 25 mg PO BID@0900,209911/24/20 01/27/22 History traMADol HCL [Ultram] 50 mg PO Q8H PRN #4 tab 01/11/21 01/27/22 Rx Furosemide [Lasix] 10 mg PO DAILY@0900 02/10/21 01/27/22 History Lactose-Reduced Food [Ensure Plus] 237 ml PO TID@0900,1400,209902/10/21 01/27/22 History clonazePAM [KlonoPIN] 0.5 mg PO BID@0900,209902/10/21 01/27/22 History Acetaminophen Tab [Tylenol] 650 mg PO Q4H PRN 10/27/21 01/27/22 History Loperamide [Imodium] 2 - 4 mg PO QID PRN MDD 16mg 10/27/21 01/27/22 History QUEtiapine FUMARATE [SEROquel] 25 mg PO BID@0900,209910/27/21 01/27/22 History Warfarin [Coumadin] 1 mg PO MOTH@1700 10/27/21 01/27/22 History Warfarin [Coumadin] 2 mg PO SUTUWEFRSA@1700 10/27/21 01/27/22 History Nitrofurantoin Monohyd/M-Cryst 100 mg PO BID@0900,1700 01/27/22 01/27/22 History [Macrobid] Allergies Allergy/AdvReac Type Severity Reaction Status Date / Time Influenza Virus Vaccines Allergy Swelling Verified 01/27/22 16:36 Penicillins Allergy Anaphylaxis Verified 01/27/22 16:36 Iodinated Contrast Media AdvReac Chest Pain Verified 01/27/22 16:36 [Iodinated Contrast- Oral and IV Dye] Physical Exam Vitals: Vital Signs Temp Pulse Resp BP Pulse Ox 01/27/22 12:30 97.5 F L 54 L 18 166/84 97 Intake and Output 01/27/22 01/27/22 01/27/22 06:59 14:59 22:59 Other: Weight 86.183 kg Constitutional: No acute distress, cooperative with exam Eyes: Anicteric sclerae, moist conjunctiva, Pupils equal round reactive to light ENMT: NC/AT Oropharynx clear, no erythema, or exudates Neck: Supple, no masses, or JVD No carotid bruits No thyromegaly Lungs: Clear to auscultation Clear to percussion Normal respiratory effort, no accessory muscle use Cardiovascular: Heart regular in rate and rhythm, systolic murmurs, No gallops, or rubs No peripheral edema Abdominal: Soft Nontender, no guarding, rebound or rigidity Abdomen moving with respiration Normoactive bowel sounds No hepatomegaly, No splenomegaly No palpable mass No abdominal wall hernia noted Skin: Normal temperature, tone, texture, turgor No induration No subcutaneous nodules No rash, lesions No ulcers Extremities: No digital cyanosis No clubbing Pedal pulses weak and symmetrical, capillary refill immediate Radial pulses intact and symmetrical No calf tenderness Psychiatric: Alert and oriented to person, place and time Neuro Muscles Strength 3/5 in bilateral lower extremities and 4/5 in bilateral upper extremities Sensation to light touch grossly present throughout Cranial nerves II-XII grossly intact Lymphatics: no palpable cervical or supraclavicular , or inguinal lymph nodes Results CBC & Chem 7: 01/27/22 13:02 01/27/22 13:02 Labs: Abnormal Lab Results - Last 24 Hours (Table) 01/27/22 01/27/22 01/27/22 Range/Units 13:02 13:02 13:02 PT 18.6 H (9.0-12.0) sec INR 1.8 H (<1.2) Carbon Dioxide 31 H (22-30) mmol/L BUN 21 H (7-17) mg/dL Calcium 8.2 L (8.4-10.2) mg/dL Total Protein 5.7 L (6.3-8.2) g/dL Albumin 3.2 L (3.5-5.0) g/dL Urine Appearance Cloudy H (Clear) Amorphous Sediment Moderate H (None) /hpf Urine Bacteria Occasional H (None) /hpf Urine Mucus Rare H (None) /hpf Assessment and Plan Assessment: acute metabolic encephalopathy , , resolved parkinson fall precautions neuro eval atypical chest pain, trend trops , color television console monitor recent UTI, continue macrobid , check urine culture , UA negative h/o venous thromboembolism , continue with coumadin dosing by pharmacy hypertension , resume home BP meds GERD , continue PPI full code anticipated length of stay < 2 midnights
[2022-01-28] MEDS ORDERED: WARFARIN 2 MG TAB PO ONE ×2 (02:00→18:00)
[2022-01-28] MEDS: PANTOPRAZOLE 40 MG TABLET PO SCH (04:22)
[2022-01-28] MEDS: traMADol 50 MG TAB PO PRN ×2 (04:22→22:33)
[2022-01-28] MEDS: CARBIDOPA-LEVODOPA 25-100 MG 1 EACH TAB PO SCH ×4 (04:22→17:46)
--- NOTE | 2022-01-28 08:43 | P.PN ---
Objective - Vital Signs Vital signs: Vital Signs Temp 97.5 F L 01/28/22 05:15 Pulse 65 01/28/22 05:15 Resp 16 01/28/22 05:15 BP 103/61 01/28/22 05:15 Pulse Ox 95 01/28/22 05:15 FiO2 Intake & Output 01/27/22 01/28/22 01/28/22 18:59 06:59 18:59 Intake Total 1080 Balance 1080 Weight 86.183 kg 86.183 kg Intake: Oral 1080 Other: Voiding Method External Catheter - Labs CBC & Chem 7: 01/27/22 13:02 01/27/22 13:02 Labs: Abnormal Lab Results - Last 24 Hours (Table) 01/27/22 01/27/22 01/27/22 Range/Units 13:02 13:02 13:02 PT 18.6 H (9.0-12.0) sec INR 1.8 H (<1.2) Carbon Dioxide 31 H (22-30) mmol/L BUN 21 H (7-17) mg/dL Calcium 8.2 L (8.4-10.2) mg/dL Total Protein 5.7 L (6.3-8.2) g/dL Albumin 3.2 L (3.5-5.0) g/dL Urine Appearance Cloudy H (Clear) Amorphous Sediment Moderate H (None) /hpf Urine Bacteria Occasional H (None) /hpf Urine Mucus Rare H (None) /hpf
[2022-01-28] MEDS: clonazePAM 0.5 MG TAB PO SCH ×2 (08:46→22:32)
[2022-01-28] MEDS: FUROSEMIDE 20 MG TAB PO SCH (08:46)
[2022-01-28] MEDS: NITROFURANTOIN MONOHYD/M-CRYST 100 MG CAP PO SCH ×2 (08:46→17:46)
[2022-01-28] MEDS: lisinopriL 10 MG TAB PO SCH (08:46)
[2022-01-28] MEDS: QUEtiapine 25 MG TAB PO SCH ×2 (08:47→22:32)
[2022-01-28] MEDS: METOPROLOL TARTRATE 25 MG TAB PO SCH ×2 (08:47→22:33)
[2022-01-28] MEDS ORDERED: bisacodyL 5 MG TABLET.DR PO PRN (09:00)
[2022-01-28 09:56] LABS: INR 1.85 (0.90-1.11); Prothrombin Time 20.3 sec (9.9-11.9)
--- NOTE | 2022-01-28 16:22 | P.DS ---
Providers Date of admission: 01/27/22 17:55 Expected date of discharge: 01/28/22 Attending physician: Chito Hyatt MD Consults: 01/27/22 17:39 Consult Physician Routine Consulting Provider: Jackson Foote Consult Reason/Comments: AMS Do you want consulting provider notified?: Yes Primary care physician: [facility] Course: 81 years old female, patient is a resident of [facility] apparently was sent to the hospital with altered mental status, not acting right keeping herself on the ground instead of chair, patient remains intermittently confused but she is not having any behavioral agitations at this point. Patient has history of hypertension hyperlipidemia Parkinson's disease anxiety depression and dementia and VTE and atrial fibrillation, patient is on Coumadin. Patient's CT head was negative. Urinalysis and chest x-ray negative. Infectious workup otherwise was negative. Patient vital signs were also stable except patient was noted to have sinus bradycardia , decreasing dose of metoprolol on discharge otherwise continuing home medications for her chronic stable medical conditions. Patient is being discharged in a stable state back to home Discharge diagnoses Acute encephalopathy, resolved unclear reason Sinus bradycardia Atrial fibrillation Coumadin coagulopathy History of VTE History of Parkinson's disease History of Parkinson's disease dementia History of anxiety and depression History of hypertension History of hyperlipidemia History of diastolic congestive heart failure with valvular heart disease Discharge physical examination Patient seen at bedside, patient is in no acute distress Head: atraumatic, normocephalic, symmetric Eyes: no lid lesion], anicteric sclera Mouth: no lip lesion, mucus membranes moist Cardiovascular: S1S2 reg rate and rhythm, no murmur, no gallop Lungs: Bilateral equal air entry, no wheezing no rhonchi no crackles. Abdominal: soft, nontender to palpation, no guarding, no appreciable organomegaly Ext: no gross muscle atrophy, no edema extremities warm to suppose a positive Neuro: Alert oriented to time place and person, exam grossly nonfocal Psych: Mood and affect appropriate, patient not so certain Patient Condition at Discharge: Fair Plan - Discharge Summary Discharge Rx Participant: Yes New Discharge Prescriptions: New Metoprolol Tartrate [Lopressor] 12.5 mg PO BID@0900,2100 #30 tab Continue Omeprazole [PriLOSEC] 20 mg PO DAILY@0600 bisacodyL [Dulcolax] 5 mg PO DAILY@0900 PRN PRN Reason: HOLD FOR LOOSE STOOLS Carbidopa-Levodopa 25-100 mg [Sinemet 25-100 mg] 1 tab PO QID@,,, Carbidopa/Levodopa [Sinemet CR 50-200 mg] 1 tab PO HS@2099 lisinopriL [Zestril] 10 mg PO DAILY@0900 Melatonin [Melatonin ER] 10 mg PO HS@2099 Mirabegron [Myrbetriq] 25 mg PO HS@2099 Nitroglycerin Sl Tabs [Nitrostat] 0.4 mg SL Q5M PRN PRN Reason: Chest Pain polyethylene glycoL 3350 [Miralax] 17 gm PO BID@899,2099 Cholecalciferol [Vitamin D3 (25 Mcg = 1000 Iu)] 50 mcg PO DAILY@0900 Atorvastatin [Lipitor] 40 mg PO HS@2099 traMADol HCL [Ultram] 50 mg PO Q8H PRN #4 tab PRN Reason: Pain Lactose-Reduced Food [Ensure Plus] 237 ml PO TID@0900,1400,2099 clonazePAM [KlonoPIN] 0.5 mg PO BID@899,2099 Furosemide [Lasix] 10 mg PO DAILY@0900 Warfarin [Coumadin] 2 mg PO SUTUWEFRSA@1700 Loperamide [Imodium] 2 - 4 mg PO QID PRN MDD 16mg PRN Reason: Diarrhea Mag Hydrox/Aluminum Hyd/Simeth [Mylanta Maximum Strength Liq] 10 ml PO Q8H PRN PRN Reason: upset stomach Acetaminophen Tab [Tylenol] 650 mg PO Q4H PRN PRN Reason: GENERAL DISCOMFORT Warfarin [Coumadin] 1 mg PO MOTH@1700 QUEtiapine FUMARATE [SEROquel] 25 mg PO BID@899,2099 Discontinued Nitrofurantoin Monohyd/M-Cryst [Macrobid] 100 mg PO BID@0900,1700 Metoprolol Tartrate [Lopressor] 25 mg PO BID@00,2099 Discharge Medication List Omeprazole [PriLOSEC] 20 mg PO DAILY@0600 01/11/19 [History] bisacodyL [Dulcolax] 5 mg PO DAILY@0900 PRN 02/19/19 [History] Carbidopa-Levodopa 25-100 mg [Sinemet 25-100 mg] 1 tab PO QID@05,09,,07/30/19 [History] Carbidopa/Levodopa [Sinemet CR 50-200 mg] 1 tab PO HS@209910/15/19 [History] Melatonin [Melatonin ER] 10 mg PO HS@209910/15/19 [History] Mirabegron [Myrbetriq] 25 mg PO HS@209910/15/19 [History] lisinopriL [Zestril] 10 mg PO DAILY@89910/15/19 [History] Atorvastatin [Lipitor] 40 mg PO HS@209910/19/20 [History] Cholecalciferol [Vitamin D3 (25 Mcg = 1000 Iu)] 50 mcg PO DAILY@89910/19/20 [History] Nitroglycerin Sl Tabs [Nitrostat] 0.4 mg SL Q5M PRN 10/19/20 [History] polyethylene glycoL 3350 [Miralax] 17 gm PO BID@00,209910/19/20 [History] Mag Hydrox/Aluminum Hyd/Simeth [Mylanta Maximum Strength Liq] 10 ml PO Q8H PRN 11/24/20 [History] traMADol HCL [Ultram] 50 mg PO Q8H PRN #4 tab 01/11/21 [Rx] Furosemide [Lasix] 10 mg PO DAILY@89902/10/21 [History] Lactose-Reduced Food [Ensure Plus] 237 ml PO TID@0900,1400,209902/10/21 [History] clonazePAM [KlonoPIN] 0.5 mg PO BID@0900,209902/10/21 [History] Acetaminophen Tab [Tylenol] 650 mg PO Q4H PRN 10/27/21 [History] Loperamide [Imodium] 2 - 4 mg PO QID PRN MDD 16mg 10/27/21 [History] QUEtiapine FUMARATE [SEROquel] 25 mg PO BID@0900,209910/27/21 [History] Warfarin [Coumadin] 1 mg PO MOTH@169910/27/21 [History] Warfarin [Coumadin] 2 mg PO SUTUWEFRSA@169910/27/21 [History] Metoprolol Tartrate [Lopressor] 12.5 mg PO BID@899,2099 #30 tab 01/28/22 [Rx] Follow up Appointment(s)/Referral(s): Jesus Cooney MD [Primary Care Provider] - 1-2 days Discharge Disposition: TRANSFER TO SNF/ECF
--- NOTE | 2022-01-28 20:20 | P.CNNES ---
History of Present Illness Consult date: 01/28/22 Requesting physician: Giovany Reddy Reason for Consult: AMS History of Present Illness: Patient is a 81-year-old female, with history of Parkinson's disease, resident of senior living was brought to the hospital by ambulance yesterday at 12:21 PM for altered mental status. According to EMS flow sheet, the staff called EMS because patient was altered. The patient has been on [place] for last 6 days. Staff states that patient is normally alert and oriented to person and place and time. This morning staff states that patient has been yelling and not recognizing staff, also states that the patient has been continent up until today. On EMS evaluation, there were no focal deficits noted. Patient's vitals at the scene was blood pressure 141/48, pulse rate 54 respiration 95% and a temperature 98.0. Patient's CBC is normal, INR 1.8. N 20 is normal. UA negative. Troponin negative ammonia is less than 9. UA shows cloudy, many wbc's, culture pending. Patient had a computed tomography scan of head performed which did not reveal any acute process, only atrophy. I reviewed personally and agree with the findings. Patient denies any focal symptoms. Patient at present tells me that she came because her stomach was hurting. If she eats something, it swells up and become sore. That was the reasons he was irritable because it was hurting. Patient states that she uses a walker and a wheelchair. She has not walked by herself for 6 months. Her left foot is weak which is present for years. She says that she has 2 daughters one of them . 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 She has been on Coumadin for a long time. Review of Systems As mentioned above in detail. All other 14 point review of systems reviewed and unremarkable. Past Medical History Past Medical History: Asthma, Heart Failure, CVA/TIA, Deep Vein Thrombosis (DVT), GERD/Reflux, Hypertension, Memory Impairment, Musculoskeletal Disorder, Neurologic Disorder, Osteoarthritis (OA) Additional Past Medical History / Comment(s): Ulcerative colitis, diverticuli tis, parkinson's disease, CVA which pt was unaware of having-showed on cat scan, several DVTs bilateral legs and pt states since she has had intermittent bilateral ankle edema, thrombophlebitis, PE-pt cannot recall laterallity, generalized arthritis, urinary leakage, UTIs, shingles x 2 History of Any Multi-Drug Resistant Organisms: ESBL Date of last positivie culture/infection: 07/09/21 ESBL-E.coli MDRO Source:: URINE ESBL Past Surgical History: Appendectomy, Cholecystectomy, Hysterectomy, Orthopedic Surgery, Tubal Ligation Additional Past Surgical History / Comment(s): L shoulder injury with surgery to repair, removals of DVTs bilateral legs, cataract removal/lens implants, colonoscopies, hemorrohoids surgery Past Anesthesia/Blood Transfusion Reactions: Postoperative Nausea & Vomiting (PONV) Additional Past Anesthesia/Blood Transfusion Reaction / Comment(s): Pt received blood with hysterectomy without reaction. Past Psychological History: Anxiety Smoking Status: Never smoker Past Alcohol Use History: None Reported Past Drug Use History: None Reported - Past Family History Father Family Medical History: Asthma, Cancer, COPD Additional Family Medical History / Comment(s): Gallbladder cancer Mother Family Medical History: Myocardial Infarction (IN) Additional Family Medical History / Comment(s): Mother of a IN at the age of 48 yrs. Sister(s) Family Medical History: Deep Vein Thrombosis (DVT) Additional Family Medical History / Comment(s): Sister of a blood clot at age 38 yrs-pt cannot recall specifics. Medications and Allergies Home Medications Medication Instructions Recorded Confirmed Type Omeprazole [PriLOSEC] 20 mg PO DAILY@0600 01/11/19 01/27/22 History bisacodyL [Dulcolax] 5 mg PO DAILY@09 PRN 02/19/19 01/27/22 History Carbidopa-Levodopa 25-100 mg 1 tab PO QID@05,09,13,17 07/30/19 01/27/22 History [Sinemet 25-100 mg] Carbidopa/Levodopa [Sinemet CR 1 tab PO HS@209910/15/19 01/27/22 History 50-200 mg] Melatonin [Melatonin ER] 10 mg PO HS@209910/15/19 01/27/22 History Mirabegron [Myrbetriq] 25 mg PO HS@209910/15/19 01/27/22 History lisinopriL [Zestril] 10 mg PO DAILY@0900 10/15/19 01/27/22 History Atorvastatin [Lipitor] 40 mg PO HS@209910/19/20 01/27/22 History Cholecalciferol [Vitamin D3 (25 50 mcg PO DAILY@0900 10/19/20 01/27/22 History Mcg = 1000 Iu)] Nitroglycerin Sl Tabs [Nitrostat] 0.4 mg SL Q5M PRN 10/19/20 01/27/22 History polyethylene glycoL 3350 [Miralax] 17 gm PO BID@0900,209910/19/20 01/27/22 History Mag Hydrox/Aluminum Hyd/Simeth 10 ml PO Q8H PRN 11/24/20 01/27/22 History [Mylanta Maximum Strength Liq] traMADol HCL [Ultram] 50 mg PO Q8H PRN #4 tab 01/11/21 01/27/22 Rx Furosemide [Lasix] 10 mg PO DAILY@0900 02/10/21 01/27/22 History Lactose-Reduced Food [Ensure Plus] 237 ml PO TID@0900,1400,209902/10/21 01/27/22 History clonazePAM [KlonoPIN] 0.5 mg PO BID@0900,2100 02/10/21 01/27/22 History Acetaminophen Tab [Tylenol] 650 mg PO Q4H PRN 10/27/21 01/27/22 History Loperamide [Imodium] 2 - 4 mg PO QID PRN MDD 16mg 10/27/21 01/27/22 History QUEtiapine FUMARATE [SEROquel] 25 mg PO BID@0900,209910/27/21 01/27/22 History Warfarin [Coumadin] 1 mg PO MOTH@1700 10/27/21 01/27/22 History Warfarin [Coumadin] 2 mg PO SUTUWEFRSA@1700 10/27/21 01/27/22 History Metoprolol Tartrate [Lopressor] 12.5 mg PO BID@0900,2100 #30 tab 01/28/22 Rx Allergies Allergy/AdvReac Type Severity Reaction Status Date / Time Influenza Virus Vaccines Allergy Swelling Verified 01/27/22 16:36 Penicillins Allergy Anaphylaxis Verified 01/27/22 16:36 Iodinated Contrast Media AdvReac Chest Pain Verified 01/27/22 16:36 [Iodinated Contrast- Oral and IV Dye] Physical Examination - Vital Signs Vital Signs: Vital Signs Temp Pulse Pulse Resp BP BP Pulse Ox 01/28/22 05:15 97.5 F L 65 16 103/61 95 01/27/22 21:20 60 16 01/27/22 20:00 98.3 F 60 16 142/77 94 L 01/27/22 12:30 97.5 F L 54 L 18 166/84 97 Intake and Output 01/27/22 01/28/22 01/28/22 22:59 06:59 14:59 Intake Total 1080 Balance 1080 Intake: Oral 1080 Other: Voiding Method External Catheter External Catheter Weight 86.183 kg Patient is an elderly female, in no acute distress. Patient is alert awake oriented to time place and person. Patient states it is January and the date is . The year she said was , then she changed it to . Patient states she is in [place], but then changed to [place] in [place]. She thought she was in [facility], but then she said she is in the hospital. She corrects herself. Patient states that she lived in [place] all her life, moved to [place] in 1990. Speech and language functions are normal. Attention, concentration and fund of knowledge is adequate. On cranial examination, pupils are surgical, round and reacting to light, visual goldman are full on confrontation, extraocular muscles are intact with no n ystagmus. Face is symmetric, tongue protrudes to the midline. Palatal elevation and sensation normal, hearing and shoulder shrug normal, facial sensation normal. Shoulder shrug normal. On muscle strength testing, there is no pronator drift and the strength is normal in arms distally and proximally. In the lower limbs her hip flexion is 5-/4, ankle dorsiflexion 5/4+, knee extension 5/5-. She claims that her left leg is weak for "several years". Deep tendon reflexes are 2 at bilateral biceps, brachioradialis, 2 at the knees, 1+ ankles and plantar is downgoing on the right, possible up on left. Sensory to touch is equal with no neglect. Cerebellar function showed no ataxia for [id number] testing. No dysdiadochokinesia. Tone is mildly increased in the arms, particularly on the r ight. No obvious resting tremors noted. Patient is slightly bradykinetic. Her bulk of muscles normal. Gait deferred. On general examination, there is no carotid bruit or murmur, S1-S2 audible. A bdomen is soft , slight tenderness to palpation. No organomegaly. Bowel sounds present. Chest is clear. Peripheral pulses are present. No edema. Results - Laboratory Findings CBC and BMP: 01/27/22 13:02 01/27/22 13:02 Abnormal Lab Findings: Abnormal Labs 01/27/22 01/27/22 01/27/22 13:02 13:02 13:02 PT 18.6 H INR 1.8 H Carbon Dioxide 31 H BUN 21 H Calcium 8.2 L Total Protein 5.7 L Albumin 3.2 L Urine Appearance Cloudy H Amorphous Sediment Moderate H Urine Bacteria Occasional H Urine Mucus Rare H 01/28/22 05:22 PT 20.3 H INR 1.85 H Carbon Dioxide BUN Calcium Total Protein Albumin Urine Appearance Amorphous Sediment Urine Bacteria Urine Mucus Assessment and Plan Assessment: * Altered mental status, probably mild delirium, now seems to have resolved. * Parkinson's disease, well controlled. * Abdominal pain, unclear cause. Plan: * Patient's mentation seems to be normal. She is slightly forgetful, for which I would suggest patient follow up with neurologist as an outpatient to rule out underlying cognitive impairment. She may benefit from cognitive enhancing medication. * We'll check B12, folate, TSH and A1c, which were all normal. * Patient is on Coumadin for history of DVTs in the past. Suggest keep INR between 2-3. * Her Parkinson's is well controlled. Continue same dose of Sinemet. * Avoid opiates, and narcotics. * No other neurological workup indicated. * Patient is clear from neurology standpoint. Update: Her B12 is 538, folate 19.1, A1c 5.2, TSH 3.55.
[2022-01-28 20:32] VITALS: RESP 18
[2022-01-28] MEDS ORDERED: ATORVASTATIN 40 MG TAB PO SCH (21:00)
[2022-01-28] MEDS ORDERED: NON FORMULARY DRUG (Mirabegron [Myrbetriq] 25 MG Tab.Er.24h) PO SCH (21:00)
[2022-01-28] MEDS ORDERED: CARBIDOPA-LEVODOPA ER 50-200MG 1 EACH TABLET.ER PO SCH (21:00)
[2022-01-28] MEDS ORDERED: MELATONIN 5 MG TABLET PO SCH (21:00)
[2022-01-29] MEDS: CARBIDOPA-LEVODOPA 25-100 MG 1 EACH TAB PO SCH ×3 (04:17→12:37)
[2022-01-29] MEDS: PANTOPRAZOLE 40 MG TABLET PO SCH (04:18)
[2022-01-29] MEDS: QUEtiapine 25 MG TAB PO SCH (09:42)
[2022-01-29] MEDS: FUROSEMIDE 20 MG TAB PO SCH (09:43)
[2022-01-29] MEDS: clonazePAM 0.5 MG TAB PO SCH (09:43)
[2022-01-29] MEDS: lisinopriL 10 MG TAB PO SCH (09:43)
[2022-01-29] MEDS: METOPROLOL TARTRATE 25 MG TAB PO SCH (09:43)
[2022-01-29] MEDS: NITROFURANTOIN MONOHYD/M-CRYST 100 MG CAP PO SCH (09:44)
--- NOTE | 2022-01-29 11:15 | P.DS ---
Providers Date of admission: 01/27/22 17:55 Expected date of discharge: 01/29/22 Attending physician: Chito Hyatt MD Consults: 01/27/22 17:39 Consult Physician Routine Consulting Provider: Jackson Foote Consult Reason/Comments: AMS Do you want consulting provider notified?: Yes Primary care physician: Jesus Cooney Hospital Course: Hospital Course: 81 years old female, patient is a resident of [facility] the [place] apparently was sent to the hospital with altered mental status, not acting right keeping herself on the ground instead of chair, patient remains intermittently confused but she is not having any behavioral agitations at this point. Patient has history of hypertension hyperlipidemia Parkinson's disease anxiety depression and dementia and VTE and atrial fibrillation, patient is on Coumadin. Patient's CT head was negative. Urinalysis and chest x-ray negative. Infectious workup otherwise was negative. Patient vital signs were also stable except patient was noted to have sinus bradycardia , decreasing dose of metoprolol on discharge to 12.5 mg po bid otherwise continuing home medications for her chronic stable medical conditions. 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 Abdominal: soft, nontender to palpation, no guarding, no appreciable organomegaly Ext: no gross muscle atrophy, no edema extremities warm to suppose a positive Neuro: Alert oriented to time place and person, exam grossly nonfocal Plan - Discharge Summary Discharge Rx Participant: Yes New Discharge Prescriptions: New Metoprolol Tartrate [Lopressor] 12.5 mg PO BID@0900,2100 #30 tab Continue Omeprazole [PriLOSEC] 20 mg PO DAILY@0600 bisacodyL [Dulcolax] 5 mg PO DAILY@0900 PRN PRN Reason: HOLD FOR LOOSE STOOLS Carbidopa-Levodopa 25-100 mg [Sinemet 25-100 mg] 1 tab PO QID@,,, Carbidopa/Levodopa [Sinemet CR 50-200 mg] 1 tab PO HS@2100 lisinopriL [Zestril] 10 mg PO DAILY@0900 Melatonin [Melatonin ER] 10 mg PO HS@2100 Mirabegron [Myrbetriq] 25 mg PO HS@2100 Nitroglycerin Sl Tabs [Nitrostat] 0.4 mg SL Q5M PRN PRN Reason: Chest Pain polyethylene glycoL 3350 [Miralax] 17 gm PO BID@0900,2100 Cholecalciferol [Vitamin D3 (25 Mcg = 1000 Iu)] 50 mcg PO DAILY@0900 Atorvastatin [Lipitor] 40 mg PO HS@2100 traMADol HCL [Ultram] 50 mg PO Q8H PRN #4 tab PRN Reason: Pain Lactose-Reduced Food [Ensure Plus] 237 ml PO TID@0900,1400,2100 clonazePAM [KlonoPIN] 0.5 mg PO BID@0900,2100 Furosemide [Lasix] 10 mg PO DAILY@0900 Warfarin [Coumadin] 2 mg PO SUTUWEFRSA@1700 Loperamide [Imodium] 2 - 4 mg PO QID PRN MDD 16mg PRN Reason: Diarrhea Mag Hydrox/Aluminum Hyd/Simeth [Mylanta Maximum Strength Liq] 10 ml PO Q8H PRN PRN Reason: upset stomach Acetaminophen Tab [Tylenol] 650 mg PO Q4H PRN PRN Reason: GENERAL DISCOMFORT Warfarin [Coumadin] 1 mg PO MOTH@1700 QUEtiapine FUMARATE [SEROquel] 25 mg PO BID@0900,2100 Discontinued Nitrofurantoin Monohyd/M-Cryst [Macrobid] 100 mg PO BID@0900,1700 Metoprolol Tartrate [Lopressor] 25 mg PO BID@0900,2100 Discharge Medication List Omeprazole [PriLOSEC] 20 mg PO DAILY@0600 01/11/19 [History] bisacodyL [Dulcolax] 5 mg PO DAILY@0900 PRN 02/19/19 [History] Carbidopa-Levodopa 25-100 mg [Sinemet 25-100 mg] 1 tab PO QID@,,,07/30 [History] Carbidopa/Levodopa [Sinemet CR 50-200 mg] 1 tab PO HS@209910/15/19 [History] Melatonin [Melatonin ER] 10 mg PO HS@209910/15/19 [History] Mirabegron [Myrbetriq] 25 mg PO HS@209910/15/19 [History] lisinopriL [Zestril] 10 mg PO DAILY@0900 10/15/19 [History] Atorvastatin [Lipitor] 40 mg PO HS@209910/19/20 [History] Cholecalciferol [Vitamin D3 (25 Mcg = 1000 Iu)] 50 mcg PO DAILY@0900 10/19/20 [History] Nitroglycerin Sl Tabs [Nitrostat] 0.4 mg SL Q5M PRN 10/19/20 [History] polyethylene glycoL 3350 [Miralax] 17 gm PO BID@0900,209910/19/20 [History] Mag Hydrox/Aluminum Hyd/Simeth [Mylanta Maximum Strength Liq] 10 ml PO Q8H PRN 11/24/20 [History] traMADol HCL [Ultram] 50 mg PO Q8H PRN #4 tab 01/11/21 [Rx] Furosemide [Lasix] 10 mg PO DAILY@0902/10/21 [History] Lactose-Reduced Food [Ensure Plus] 237 ml PO TID@0900,1400,209902/10/21 [History] clonazePAM [KlonoPIN] 0.5 mg PO BID@0900,209902/10/21 [History] Acetaminophen Tab [Tylenol] 650 mg PO Q4H PRN 10/27/21 [History] Loperamide [Imodium] 2 - 4 mg PO QID PRN MDD 16mg 10/27/21 [History] QUEtiapine FUMARATE [SEROquel] 25 mg PO BID@0900,209910/27/21 [History] Warfarin [Coumadin] 1 mg PO MOTH@169910/27/21 [History] Warfarin [Coumadin] 2 mg PO SUTUWEFRSA@169910/27/21 [History] Metoprolol Tartrate [Lopressor] 12.5 mg PO BID@0900,2099 #30 tab 01/28/22 [Rx] Follow up Appointment(s)/Referral(s): Jesus Cooney MD [Primary Care Provider] - 1-2 days Discharge Disposition: TRANSFER TO SNF/ECF
[2022-01-29 11:57] LABS: INR 2.72 (0.90-1.11); Prothrombin Time 29.3 sec (9.9-11.9)
[2022-01-29 12:46] VITALS: BP 147/72; PULSE 54; TEMP 98.2
[2022-01-29] MEDS ORDERED: WARFARIN 1 MG TAB PO ONE (18:00)
[2022-01-29] MEDS ORDERED: METOPROLOL TARTRATE 12.5 MG TAB PO SCH (21:00)
== END 2022-01-29 14:40 ==
LOC: EC 12:21 → 5NMEDONC 17:55
PROVIDERS: ADMIT Internal Medicine; ATTEND Internal Medicine
DX: G93.41 Metabolic encephalopathy (principal); R00.1 Bradycardia, unspecified; I48.91 Unspecified atrial fibrillation; R79.1 Abnormal coagulation profile; T45.515A Adverse effect of anticoagulants, initial encounter; Z86.718 Personal history of other venous thrombosis and embolism; G20 Parkinson's disease; F02.80 Dementia in other diseases classified elsewhere, unspecified severity, without behavioral disturbance, psychotic disturbance, mood disturbance, and anxiety; F41.9 Anxiety disorder, unspecified; F32.A Depression, unspecified; I11.0 Hypertensive heart disease with heart failure; I50.32 Chronic diastolic (congestive) heart failure; I38 Endocarditis, valve unspecified; N39.0 Urinary tract infection, site not specified; R26.9 Unspecified abnormalities of gait and mobility; R53.1 Weakness; E78.5 Hyperlipidemia, unspecified; J45.909 Unspecified asthma, uncomplicated; R07.89 Other chest pain; K21.9 Gastro-esophageal reflux disease without esophagitis; R41.3 Other amnesia; M19.90 Unspecified osteoarthritis, unspecified site; R32 Unspecified urinary incontinence; K51.90 Ulcerative colitis, unspecified, without complications; Z71.9 Counseling, unspecified; Z79.01 Long term (current) use of anticoagulants; Z87.440 Personal history of urinary (tract) infections; Z86.73 Personal history of transient ischemic attack (TIA), and cerebral infarction without residual deficits; Z86.72 Personal history of thrombophlebitis; Z79.899 Other long term (current) drug therapy; Z88.0 Allergy status to penicillin; Z88.7 Allergy status to serum and vaccine; Z91.041 Radiographic dye allergy status; Z16.24 Resistance to multiple antibiotics; Z90.49 Acquired absence of other specified parts of digestive tract; Z90.710 Acquired absence of both cervix and uterus; Z80.0 Family history of malignant neoplasm of digestive organs; Z82.49 Family history of ischemic heart disease and other diseases of the circulatory system; Z82.5 Family history of asthma and other chronic lower respiratory diseases
CPT/HCPCS: 96360; 99285; 36415; 93005; 80053; 84443; 82607; 82140; 82746; 83605; 84484 ×2; 85025; 85610 ×3; 85730; 81001; 87086; 87077; 87186; 83036; 71046; 70450; G0378 ×3

== ENCOUNTER 2022-11-04 20:14 | Observation (INO) | payer MEDICARE, OTHER ==
[2022-11-04] MEDS ORDERED: methylPREDNISolone SOD SUCCI 125 MG/2 ML VIAL IV STA (20:56)
[2022-11-04] MEDS ORDERED: FAMOTIDINE 20 MG/2 ML VIAL IV STA (20:56)
[2022-11-04] MEDS ORDERED: diphenhydrAMINE 50 MG/ML 1 ML VIAL IVP STA (20:56)
[2022-11-04 21:38] LABS: Basophils % (A) 0 %; Eosinophils # (A) 0.1 k/uL (0-0.7); Eosinophils % (A) 2 %; HCT 34.5 % (34.0-46.0); HGB 12.1 gm/dL (11.4-16.0); Lymphocytes # (A) 2.2 k/uL (1.0-4.8); Lymphocytes % (A) 33 %; MCH 31.1 pg (25.0-35.0); MCHC 35.1 g/dL (31.0-37.0); MCV 88.6 fL (80.0-100.0); Monocytes # (A) 0.3 k/uL (0-1.0); Monocytes % (A) 5 %; Neutrophils # (A) 3.9 k/uL (1.3-7.7); Neutrophils % (A) 58 %; Platelet Count 235 k/uL (150-450); RBC 3.89 m/uL (3.80-5.40); RDW 13.2 % (11.5-15.5); WBC 6.7 k/uL (3.8-10.6)
[2022-11-04 21:41] LABS: Appearance,Urine Clear (Clear); Bilirubin,Urine Negative (Negative); Blood,Urine Negative (Negative); Color,Urine Light Yellow; Glucose,Urine (UA) Negative (Negative); Ketones,Urine Negative (Negative); Leukocyte Esterase,Urine Negative (Negative); Nitrite,Urine Negative (Negative); PH, Urine 5.5 (5.0-8.0); Protein,Urine Negative (Negative); Specific Gravity,Urine 1.011 (1.001-1.035); Urobilinogen,Urine <2.0 mg/dL (<2.0)
[2022-11-04 21:47] LABS: INR 2.5 (<1.2); Partial Thromboplastin Time 28.8 sec (22.0-30.0); Prothrombin Time 24.1 sec (9.0-12.0)
[2022-11-04 22:05] LABS: ALT 7 U/L (4-34); AST 21 U/L (14-36); African American GFR (CKD) 46 (>60 ml/min/1.73 sqM); Albumin 3.1 g/dL (3.5-5.0); Alcohol <10 mg/dL; Alkaline Phosphatase 75 U/L (38-126); Anion Gap 5 mmol/L; Blood Urea Nitrogen 40 mg/dL (7-17); Calcium 8.5 mg/dL (8.4-10.2); Carbon Dioxide 33 mmol/L (22-30); Chloride 101 mmol/L (98-107); Glucose 95 mg/dL (74-99); Non-African American GFR(CKD) 40 (>60 ml/min/1.73 sqM); Potassium 4.5 mmol/L (3.5-5.1); Sodium 139 mmol/L (137-145); Total Bilirubin 0.5 mg/dL (0.2-1.3); Total Protein 6.1 g/dL (6.3-8.2)
[2022-11-04] MEDS ORDERED: SODIUM CHLORIDE 0.9% 500 ML 500 ML IV STA (22:08)
[2022-11-04 22:09] LABS: Amphetamine Screen,Urine Not Detected (NotDetected); Barbiturate Screen,Urine Not Detected (NotDetected); Benzodiazepines Screen,Urine Detected (NotDetected); Cocaine Screen,Urine Not Detected (NotDetected); Methadone Screen, Urine Not Detected (NotDetected); Opiate Screen,Urine Not Detected (NotDetected); Oxycodone Screen, Urine Not Detected (NotDetected); Phencyclidine Screen,Urine Not Detected (NotDetected); Tricyclic Antidepressant,Urine Detected (NotDetected); Urn Cannabinoid Scrn Not Detected (NotDetected)
--- NOTE | 2022-11-04 22:16 | CT ---
EXAMINATION TYPE: CT brain wo con CT DLP: 1099.4 mGycm, Automated exposure control for dose reduction was used. DATE OF EXAM: 11/04/2022 9:46 PM COMPARISON: 01/27/2022. CLINICAL INDICATION:Female, 82 years old with history of Altered mental status, ams, weakness TECHNIQUE: Brain: Axial CT images of the brain were obtained with coronal and sagittal reformats created and rev iewed. Contrast used: None. Oral contrast used: None. FINDINGS: Brain: Extra-axial spaces: No abnormal extra-axial fluid collections. Ventricular system: Within normal limits Cerebral parenchyma: No acute intraparenchymal hemorrhage or mass effect. The lopez-white junction is well differentiated. Cerebellum: Unremarkable. Mass effect: No evidence of midline shift. Intracranial vasculature: Atherosclerotic calcifications of the intracranial vessels. Soft tissues: Normal. Calvarium/osseous structures: No depressed skull fracture. Paranasal sinuses and mastoid air cells: Mild scattered paranasal sinus disease. Visualized orbits: Bilaterally aphakia. IMPRESSION: No acute intracranial process.
--- NOTE | 2022-11-04 22:25 | CT ---
EXAMINATION TYPE: CT abdomen pelvis wo con CT DLP: 496.5 mGycm, Automated exposure control for dose reduction was used. DATE OF EXAM: 11/04/2022 9:46 PM COMPARISON: CT abdomen pelvis most recent from 01/09/2021 CLINICAL INDICATION:Female, 82 years old with history of abd pain; abdominal pain TECHNIQUE: Axial CT of the abdomen and pelvis. Sagittal and coronal reformats were created on a [employer] workstation. Contrast used: None Oral contrast used: without Oral Contrast FINDINGS: LOWER CHEST: Unremarkable ABDOMEN LIVER: Unremarkable GALLBLADDER AND BILE DUCTS: Gallbladder is not definitively visualized may be surgically absent. PANCREAS: Unremarkable. SPLEEN: Unremarkable. ADRENAL GLANDS: Unremarkable. KIDNEYS AND URETERS: No evidence of hydronephrosis or renal calculus. The ureters are unremarkable. Renal cysts bilaterally right greater than left. PELVIS BLADDER: Unremarkable REPRODUCTIVE: Unremarkable. ABDOMEN & PELVIS STOMACH AND BOWEL: Small hiatal hernia. No evidence of bowel obstruction. There is a moderate stool b urden throughout the colon. Small feces is seen throughout the abdomen. Is scattered colonic divertic lily present. PERITONEUM/RETROPERITONEUM: No evidence of pneumoperitoneum or free fluid. VASCULATURE: Moderate atherosclerotic calcifications are present throughout the abdominal aorta and i ts branches. No evidence of aortic aneurysm. MUSCULOSKELETAL: No acute osseous abnormalities. Moderate disc degeneration changes are present throu ghout the thoracolumbar spine. LYMPH NODES: No gross evidence for lymphadenopathy. SOFT TISSUE/ABDOMINAL WALL: Unremarkable IMPRESSION: Moderate stool burden with small bowel feces correlate for fecal stasis/delayed transit, no other obv ious acute intra-abdominal process to explain the patient's pain. No obstructive uropathy. Small hiatal hernia. Colonic diverticulosis.
--- NOTE | 2022-11-04 22:27 | XR ---
EXAMINATION TYPE: XR chest 1V DATE OF EXAM: 11/04/2022 9:47 PM COMPARISON: Chest radiographs from 01/27/2022 TECHNIQUE: XR chest 1V Frontal view of the chest. CLINICAL INDICATION:Female, 82 years old with history of altered mental status; FINDINGS: Lungs/Pleura: Prominent interstitial lung markings are seen scattered throughout the lungs. No eviden ce of focal consolidation, pneumothorax or pleural effusion. Pulmonary vascularity: Unremarkable. Heart/mediastinum: Cardiomediastinal silhouette is enlarged and stable. Musculoskeletal: No acute osseous pathology. IMPRESSION: Chronic changes without acute pulmonary process. No significant change from prior.
[2022-11-04] MEDS ORDERED: NALOXONE 0.4 MG/ML 1 ML VIAL IV PRN (23:49)
[2022-11-04] MEDS ORDERED: LOPERAMIDE 2 MG CAP PO PRN (23:52)
[2022-11-04] MEDS ORDERED: traMADol 50 MG TAB PO PRN (23:52)
--- NOTE | 2022-11-05 00:47 | ED ---
General Adult HPI - General Chief complaint: Altered Mental Status Stated complaint: Unresponsive Time Seen by Provider: 11/04/22 20:37 Source: patient, RN notes reviewed, old records reviewed Mode of arrival: EMS Limitations: altered mental status - History of Present Illness Initial comments: Patient is a 82-year-old female with past medical history remarkable for dementia, asthma, CHF, DVT, hypertension, Parkinson's disease, chronic atrial fibrillation on Coumadin who presents emergency department for possible altered mental status. Her EMS, patient was found in a room at [facility] not following commands. Was DC'd from another ER earlier today. Apparently, patient was evaluated by the physician, not wake up and they sent her here for further evaluation. Patient currently complains of mild suprapubic abdominal discomfort but otherwise no acute complaints. She appears to be at her baseline is alert and oriented times 1-2. Patient apparently has had a Covid 19 infection for the last 2 weeks. Presents for further evaluation. I was able to contact the patient's daughter, Swapna who states that the patient sometimes does do this where she will seem to not want to talk to people and therefore pretended to be sleeping. He believes this may be playing a role today but wants her to be evaluated. This is reasonable. She confirmed patient appears to be at her baseline mental status. - Related Data Home Medications Medication Instructions Recorded Confirmed Omeprazole [PriLOSEC] 20 mg PO DAILY@0600 01/11/19 11/04/22 bisacodyL [Dulcolax] 5 mg PO DAILY@0900 PRN 02/19/19 11/04/22 Carbidopa-Levodopa 25-100 mg 1 tab PO QID@05,09,13,17 07/30/19 11/04/22 [Sinemet 25-100 mg] Carbidopa/Levodopa [Sinemet CR 1 tab PO HS@209910/15/19 11/04/22 50-200 mg] Melatonin [Melatonin ER] 10 mg PO HS@209910/15/19 11/04/22 Mirabegron [Myrbetriq] 25 mg PO HS@209910/15/19 11/04/22 Atorvastatin [Lipitor] 40 mg PO HS@209910/19/20 11/04/22 Cholecalciferol [Vitamin D3 (25 50 mcg PO DAILY@0900 10/19/20 11/04/22 Mcg = 1000 Iu)] Nitroglycerin Sl Tabs [Nitrostat] 0.4 mg SL Q5M PRN 10/19/20 11/04/22 polyethylene glycoL 3350 [Miralax] 17 gm PO BID@0900,209910/19/20 11/04/22 Mag Hydrox/Aluminum Hyd/Simeth 10 ml PO Q8H PRN 11/24/20 11/04/22 [Mylanta Maximum Strength Liq] Furosemide [Lasix] 10 mg PO DAILY@0900 02/10/21 11/04/22 Lactose-Reduced Food [Ensure Plus] 237 ml PO TID@0900,1300,209902/10/21 11/04/22 Acetaminophen Tab [Tylenol] 650 mg PO Q4H PRN 10/27/21 11/04/22 Loperamide [Imodium] 2 - 4 mg PO QID PRN MDD 16mg 10/27/21 11/04/22 QUEtiapine FUMARATE [SEROquel] 25 mg PO BID@0900,209910/27/21 11/04/22 Warfarin [Coumadin] 2 mg PO DAILY@1700 10/27/21 11/04/22 ALPRAZolam [Xanax] 0.25 mg PO BID@0900,209911/04/22 11/04/22 Ascorbic Acid [Vitamin C] 500 mg PO DAILY@0900 11/04/22 11/04/22 Zinc Gluconate [Zinc] 50 mg PO DAILY@0900 11/04/22 11/04/22 lisinopriL [Zestril] 5 mg PO DAILY@0900 11/04/22 11/04/22 Previous Rx's Medication Instructions Recorded traMADol HCL [Ultram] 50 mg PO Q8H PRN #4 tab 01/11/21 Metoprolol Tartrate [Lopressor] 12.5 mg PO BID@0900,2099 #30 tab 01/28/22 Allergies Allergy/AdvReac Type Severity Reaction Status Date / Time Influenza Virus Vaccines Allergy Swelling Verified 11/04/22 21:22 Penicillins Allergy Anaphylaxis Verified 11/04/22 21:22 Iodinated Contrast Media AdvReac Chest Pain Verified 11/04/22 21:22 [Iodinated Contrast- Oral and IV Dye] Review of Systems ROS Statement: Those systems with pertinent positive or pertinent negative responses have been documented in the HPI. ROS Other: All systems not noted in ROS Statement are negative. Past Medical History Past Medical History: Asthma, Heart Failure, CVA/TIA, Deep Vein Thrombosis (DVT), GERD/Reflux, Hypertension, Memory Impairment, Musculoskeletal Disorder, Neurologic Disorder, Osteoarthritis (OA) Additional Past Medical History / Comment(s): Ulcerative colitis, diverticulitis, parkinson's disease, CVA which pt was unaware of having-showed on cat scan, several DVTs bilateral legs and pt states since she has had intermittent bilateral ankle edema, thrombophlebitis, PE-pt cannot recall laterallity, generalized arthritis, urinary leakage, UTIs, shingles x 2 History of Any Multi-Drug Resistant Organisms: ESBL Date of last positivie culture/infection: 07/09/21 ESBL-E.coli MDRO Source:: URINE ESBL Past Surgical History: Appendectomy, Cholecystectomy, Hysterectomy, Orthopedic Surgery, Tubal Ligation Additional Past Surgical History / Comment(s): L shoulder injury with surgery to repair, removals of DVTs bilateral legs, cataract removal/lens implants, colonoscopies, hemorrohoids surgery Past Anesthesia/Blood Transfusion Reactions: Postoperative Nausea & Vomiting (PO NV) Additional Past Anesthesia/Blood Transfusion Reaction / Comment(s): Pt received blood with hysterectomy without reaction. Past Psychological History: Anxiety Smoking Status: Never smoker Past Alcohol Use History: None Reported Past Drug Use History: None Reported - Past Family History Father Family Medical History: Asthma, Cancer, COPD Additional Family Medical History / Comment(s): Gallbladder cancer Mother Family Medical History: Myocardial Infarction ([place]) Additional Family Medical History / Comment(s): Mother of a MN at the age of 48 yrs. Sister(s) Family Medical History: Deep Vein Thrombosis (DVT) Additional Family Medical History / Comment(s): Sister of a blood clot at age 38 yrs-pt cannot recall specifics. General Exam - General Exam Comments Initial Comments: General: Appears in no acute distress. HEAD: Normal with no signs of head trauma. EYES: PERRLA, EOMI, conjunctiva normal, no discharge. ENT: Hearing grossly intact, normal oropharynx. Dry mucous membranes RESPIRATORY: Clear breath sounds bilaterally. No wheezes, rales, or rhonchi. C/V: Regular rate and rhythm. S1 and S2 auscultated, peripheral pulses 2+ and intact throughout ABD: Abd is soft, nontender, nondistended. No guarding. No rebound tenderness. EXT: Normal range of motion, no obvious deformity SKIN: No rashes or lesions observed on exposed skin. NEURO: Alert and oriented times one to 2 which appears to be her baseline. No focal deficits. Limitations: altered mental status Course Vital Signs 11/04/22 11/04/22 11/04/22 20:27 20:32 20:48 Temperature 97.8 F 98 F Pulse Rate 66 64 62 Respiratory 16 16 20 Rate Blood Pressure 145/64 145/63 146/63 O2 Sat by Pulse 97 97 96 Oximetry 11/04/22 11/04/22 21:51 23:34 Temperature Pulse Rate 63 62 Respiratory 16 18 Rate Blood Pressure 131/55 127/52 O2 Sat by Pulse 96 97 Oximetry Medical Decision Making - Medical Decision Making Was pt. sent in by a medical professional or institution (, PA, NURSE INTERN, urgent care, hospital, or fpc...) When possible be specific @ -Sent by [facility] in the [facility] Did you speak to anyone other than the patient for history (EMS, parent, family, police, friend...)? What history was obtained from this source @ -Patient's daughter Swapna over the phone who helped with patient's history Did you review nursing and triage notes (agree or disagree)? Why? @ -I reviewed and agree with nursing and triage notes Were old charts reviewed (outside hosp., previous admission, EMS record, old EKG, old radiological studies, urgent care reports/EKG's, fpc records)? Report findings @ -Old charts reviewed from January 2022 Diagnosis (chest pain, altered mental status, abdominal pain women, abdominal pain men, vaginal bleeding, weakness, fever, dyspnea, syncope, headache, dizziness, GI bleed, back pain, seizure, CVA, palpatations, mental health, musculoskeletal)? @ -Differential Altered Mental Status: Hypoglycemia, DKA, hypercapnia, ETOH, overdose, CO poisoning, trauma, myxedema coma, HTN encephalopathy, infection, encephalitis, psychosis, intercranial hemorrhage, hepatic encephalopathy, meningitis, CVA, this is not meant to be an all-inclusive list EKG interpreted by me (3pts min.). @ -As above X-rays interpreted by me (1pt min.). @ -Chest x-ray revealed no acute obvious cardio pulmonary process CT interpreted by me (1pt min.). @ -CT brain Revealed no obvious acute intracranial process or injury. CT and pelvis revealed possible mild stool burden But no other acute findings. U/S interpreted by me (1pt. min.). @ -None done What testing was considered but not performed or refused? (CT, X-rays, U/S, labs)? Why? @ -None What meds were considered but not given or refused? Why? @ -None Did you discuss the management of the patient with other professionals ( professionals i.e. , PA, NURSE INTERN, lab, RT, psych nurse, clinical social worker, digital cartographic technician, teacher, community cultural development officer, rn case manager)? Give summary @ -Spoke with JOSE Alcantar of [facility] who accepted the patient Was smoking cessation discussed for >3mins.? @ -No Was critical care preformed (if so, how long)? @ -No Were there social determinants of health that impacted care today? How? (Homelessness, low income, unemployed, alcoholism, drug addiction, transportation, low edu. Level, literacy, decrease access to med. care, nursing home, rehab)? @ -No Was there de-escalation of care discussed even if they declined (Discuss DNR or withdrawal of care, Hospice)? DNR status @ -No What co-morbidities impacted this encounter? (DM, HTN, Smoking, COPD, CAD, Cancer, CVA, ARF, Chemo, Hep., AIDS, mental health diagnosis, sleep apnea, morbid obesity)? @ -Dementia, Parkinson's Was patient admitted / discharged? Hospital course, mention meds given and route, prescriptions, significant lab abnormalities, going to OR and other pertinent info. @ -Patient presents with altered mental status, apparent dehydration on blood thinners. Unknown fall. Therefore we will obtain a CT brain as well as general workup. Patient as well as patient's daughter in agreement this plan. Patient is responsive to me when I speak with her. Vital signs within acceptable limits. EKG within acceptable limits. Imaging unremarkable. Labs are remarkable for a therapeutic INR of 2.5. Patient has a slight AK eye with a BUN of 40 and creatinine of 1.25. Undetectable troponin. Remainder workup unremarkable except for positive Covid screen which the patient does have a history of for the last 1-2 weeks. I checked on the patient again and she appears to be improving. We'll continue IV fluid hydration for the patient. I believe it is best admitted to the hospital at this time. She was in agreement this plan. This is her second ER visit today. She'll be admitted to observation for dehydration as well as her Covid infection. I will send him in with except for limits. I spoke with the daughter and updated her and she was in agreement this plan. I spoke with admitting team JOSE Alcantar of [facility] who accepted the patient. Patient was admitted in stable condition. Undiagnosed new problem with uncertain prognosis? @ -No Drug Therapy requiring intensive monitoring for toxicity (Heparin, Nitro, Insulin, Cardizem)? @ -No Were any procedures done? @ -No Diagnosis/symptom? @ -Dehydration, Covid infection Acute, or Chronic, or Acute on Chronic? @ -Acute Uncomplicated (without systemic symptoms) or Complicated (systemic symptoms)? @ -Uncomplicated Side effects of treatment? @ -No Exacerbation, Progression, or Severe Exacerbation? @ -No Poses a threat to life or bodily function? How? (Chest pain, [place], [place], pneumonia, PE, COPD, DKA, ARF, appy, cholecystitis, CVA, Diverticulitis, Homicidal, Suicidal, threat to staff... and all critical care pts) @ -No Diagnosis/symptom? @ -Altered mental status likely secondary to dehydration Covid infection, possible from underlying dementia Acute, or Chronic, or Acute on Chronic? @ -Acute on chronic Uncomplicated (without systemic symptoms) or Complicated (systemic symptoms)? @ -Uncomplicated Side effects of treatment? @ -none Exacerbation, Progression, or Severe Exacerbation] @ -no Poses a threat to life or bodily function? @ -no - Lab Data Result diagrams: 11/04/22 21:05 11/04/22 21:05 Lab Results 11/04/22 11/04/22 11/04/22 Range/Units 21:05 21:05 21:05 WBC 6.7 (3.8-10.6) k/uL RBC 3.89 (3.80-5.40) m/uL Hgb 12.1 (11.4-16.0) gm/dL Hct 34.5 (34.0-46.0) % MCV 88.6 (80.0-100.0) fL MCH 31.1 (25.0-35.0) pg MCHC 35.1 (31.0-37.0) g/dL RDW 13.2 (11.5-15.5) % Plt Count 235 (150-450) k/uL MPV 8.0 Neutrophils % 58 % Lymphocytes % 33 % Monocytes % 5 % Eosinophils % 2 % Basophils % 0 % Neutrophils # 3.9 (1.3-7.7) k/uL Lymphocytes # 2.2 (1.0-4.8) k/uL Monocytes # 0.3 (0-1.0) k/uL Eosinophils # 0.1 (0-0.7) k/uL Basophils # 0.0 (0-0.2) k/uL PT 24.1 H (9.0-12.0) sec INR 2.5 H (<1.2) APTT 28.8 (22.0-30.0) sec Sodium (137-145) mmol/L Potassium (3.5-5.1) mmol/L Chloride (98-107) mmol/L Carbon Dioxide (22-30) mmol/L Anion Gap mmol/L BUN (7-17) mg/dL Creatinine (0.52-1.04) mg/dL Est GFR (CKD-EPI)AfAm (>60 ml/min/1.73 sqM) Est GFR (CKD-EPI)NonAf (>60 ml/min/1.73 sqM) Glucose (74-99) mg/dL Plasma Lactic Acid Abdiaziz (0.7-2.0) mmol/L Calcium (8.4-10.2) mg/dL Total Bilirubin (0.2-1.3) mg/dL AST (14-36) U/L ALT (4-34) U/L Alkaline Phosphatase (38-126) U/L Ammonia (<30) umol/L Troponin I (0.000-0.034) ng/mL NT-Pro-B Natriuret Pep pg/mL Total Protein (6.3-8.2) g/dL Albumin (3.5-5.0) g/dL Urine Color Urine Appearance (Clear) Urine pH (5.0-8.0) Ur Specific [place] (1.001-1.035) Urine Protein (Negative) Urine Glucose (UA) (Negative) Urine Ketones (Negative) Urine Blood (Negative) Urine Nitrite (Negative) Urine Bilirubin (Negative) Urine Urobilinogen (<2.0) mg/dL Ur Leukocyte Esterase (Negative) Urine Opiates Screen Not Detected (NotDetected) Ur Oxycodone Screen Not Detected (NotDetected) Urine Methadone Screen Not Detected (NotDetected) Ur Propoxyphene Screen Not Detected (NotDetected) Ur Barbiturates Screen Not Detected (NotDetected) U Tricyclic Antidepress Detected H (NotDetected) Ur Phencyclidine Scrn Not Detected (NotDetected) Ur Amphetamines Screen Not Detected (NotDetected) U Methamphetamines Scrn Not Detected (NotDetected) U Benzodiazepines Scrn Detected H (NotDetected) Urine Cocaine Screen Not Detected (NotDetected) U Marijuana (THC) Screen Not Detected (NotDetected) Serum Alcohol mg/dL Influenza Type A (PCR) (Not Detectd) Influenza Type B (PCR) (Not Detectd) RSV (PCR) (Not Detectd) SARS-CoV-2 (PCR) (Not Detectd) 11/04/22 11/04/22 11/04/22 Range/Units 21:05 21:05 21:05 WBC (3.8-10.6) k/uL RBC (3.80-5.40) m/uL Hgb (11.4-16.0) gm/dL Hct (34.0-46.0) % MCV (80.0-100.0) fL MCH (25.0-35.0) pg MCHC (31.0-37.0) g/dL RDW (11.5-15.5) % Plt Count (150-450) k/uL MPV Neutrophils % % Lymphocytes % % Monocytes % % Eosinophils % % Basophils % % Neutrophils # (1.3-7.7) k/uL Lymphocytes # (1.0-4.8) k/uL Monocytes # (0-1.0) k/uL Eosinophils # (0-0.7) k/uL Basophils # (0-0.2) k/uL PT (9.0-12.0) sec INR (<1.2) APTT (22.0-30.0) sec Sodium 139 (137-145) mmol/L Potassium 4.5 (3.5-5.1) mmol/L Chloride 101 (98-107) mmol/L Carbon Dioxide 33 H (22-30) mmol/L Anion Gap 5 mmol/L BUN 40 H (7-17) mg/dL Creatinine 1.25 H (0.52-1.04) mg/dL Est GFR (CKD-EPI)AfAm 46 (>60 ml/min/1.73 sqM) Est GFR (CKD-EPI)NonAf 40 (>60 ml/min/1.73 sqM) Glucose 95 (74-99) mg/dL Plasma Lactic Acid Abdiaziz (0.7-2.0) mmol/L Calcium 8.5 (8.4-10.2) mg/dL Total Bilirubin 0.5 (0.2-1.3) mg/dL AST 21 (14-36) U/L ALT 7 (4-34) U/L Alkaline Phosphatase 75 (38-126) U/L Ammonia (<30) umol/L Troponin I <0.012 (0.000-0.034) ng/mL NT-Pro-B Natriuret Pep pg/mL Total Protein 6.1 L (6.3-8.2) g/dL Albumin 3.1 L (3.5-5.0) g/dL Urine Color Light Yellow Urine Appearance Clear (Clear) Urine pH 5.5 (5.0-8.0) Ur Specific [place] 1.011 (1.001-1.035) Urine Protein Negative (Negative) Urine Glucose (UA) Negative (Negative) Urine Ketones Negative (Negative) Urine Blood Negative (Negative) Urine Nitrite Negative (Negative) Urine Bilirubin Negative (Negative) Urine Urobilinogen <2.0 (<2.0) mg/dL Ur Leukocyte Esterase Negative (Negative) Urine Opiates Screen (NotDetected) Ur Oxycodone Screen (NotDetected) Urine Methadone Screen (NotDetected) Ur Propoxyphene Screen (NotDetected) Ur Barbiturates Screen (NotDetected) U Tricyclic Antidepress (NotDetected) Ur Phencyclidine Scrn (NotDetected) Ur Amphetamines Screen (NotDetected) U Methamphetamines Scrn (NotDetected) U Benzodiazepines Scrn (NotDetected) Urine Cocaine Screen (NotDetected) U Marijuana (THC) Screen (NotDetected) Serum Alcohol <10 mg/dL Influenza Type A (PCR) (Not Detectd) Influenza Type B (PCR) (Not Detectd) RSV (PCR) (Not Detectd) SARS-CoV-2 (PCR) (Not Detectd) 11/04/22 11/04/22 11/04/22 Range/Units 21:05 21:05 21:05 WBC (3.8-10.6) k/uL RBC (3.80-5.40) m/uL Hgb (11.4-16.0) gm/dL Hct (34.0-46.0) % MCV (80.0-100.0) fL MCH (25.0-35.0) pg MCHC (31.0-37.0) g/dL RDW (11.5-15.5) % Plt Count (150-450) k/uL MPV Neutrophils % % Lymphocytes % % Monocytes % % Eosinophils % % Basophils % % Neutrophils # (1.3-7.7) k/uL Lymphocytes # (1.0-4.8) k/uL Monocytes # (0-1.0) k/uL Eosinophils # (0-0.7) k/uL Basophils # (0-0.2) k/uL PT (9.0-12.0) sec INR (<1.2) APTT (22.0-30.0) sec Sodium (137-145) mmol/L Potassium (3.5-5.1) mmol/L Chloride (98-107) mmol/L Carbon Dioxide (22-30) mmol/L Anion Gap mmol/L BUN (7-17) mg/dL Creatinine (0.52-1.04) mg/dL Est GFR (CKD-EPI)AfAm (>60 ml/min/1.73 sqM) Est GFR (CKD-EPI)NonAf (>60 ml/min/1.73 sqM) Glucose (74-99) mg/dL Plasma Lactic Acid Abdiaziz 1.0 (0.7-2.0) mmol/L Calcium (8.4-10.2) mg/dL Total Bilirubin (0.2-1.3) mg/dL AST (14-36) U/L ALT (4-34) U/L Alkaline Phosphatase (38-126) U/L Ammonia <9 (<30) umol/L Troponin I (0.000-0.034) ng/mL NT-Pro-B Natriuret Pep 342 pg/mL Total Protein (6.3-8.2) g/dL Albumin (3.5-5.0) g/dL Urine Color Urine Appearance (Clear) Urine pH (5.0-8.0) Ur Specific [place] (1.001-1.035) Urine Protein (Negative) Urine Glucose (UA) (Negative) Urine Ketones (Negative) Urine Blood (Negative) Urine Nitrite (Negative) Urine Bilirubin (Negative) Urine Urobilinogen (<2.0) mg/dL Ur Leukocyte Esterase (Negative) Urine Opiates Screen (NotDetected) Ur Oxycodone Screen (NotDetected) Urine Methadone Screen (NotDetected) Ur Propoxyphene Screen (NotDetected) Ur Barbiturates Screen (NotDetected) U Tricyclic Antidepress (NotDetected) Ur Phencyclidine Scrn (NotDetected) Ur Amphetamines Screen (NotDetected) U Methamphetamines Scrn (NotDetected) U Benzodiazepines Scrn (NotDetected) Urine Cocaine Screen (NotDetected) U Marijuana (THC) Screen (NotDetected) Serum Alcohol mg/dL Influenza Type A (PCR) Not Detected (Not Detectd) Influenza Type B (PCR) Not Detected (Not Detectd) RSV (PCR) Not Detected (Not Detectd) SARS-CoV-2 (PCR) Detected A (Not Detectd) - EKG Data -: EKG Interpreted by Me EKG Comments: 12-lead Electrocardiogram Interpretation Note EKG was reviewed and interpreted by myself. 12-lead ECG performed at 2119 is interpreted by me as revealing normal sinus rhythm at a rate of 61 beats per minute. [place] is normal. NV interval is 178 ms, QRS duration is 107 ms, QTc is 391 ms.. There were no ST or T wave abnormalities to suggest myocardial ischemia or injury. R wave progression across the precordium was satisfactory. By my interpretation this EKG is non-diagnostic for acute ischemia. Disposition Clinical Impression: COVID-19 virus infection, Dehydration, Dementia, Altered mental status Disposition: ADMITTED IP TO THIS HOSP Condition: Stable Referrals: Jesus Cooney MD [Primary Care Provider] - 1-2 days Time of Disposition: 23:15
[2022-11-05] MEDS ORDERED: SODIUM CHLORIDE 0.9% 1,000 ML IV STA (00:57)
[2022-11-05] MEDS: CARBIDOPA-LEVODOPA 25-100 MG 1 EACH TAB PO SCH ×4 (04:25→18:55)
[2022-11-05 08:20] LABS: Basophils % (A) 1 %; Eosinophils # (A) 0.1 k/uL (0-0.7); Eosinophils % (A) 2 %; HCT 36.2 % (34.0-46.0); HGB 12.6 gm/dL (11.4-16.0); Lymphocytes # (A) 1.7 k/uL (1.0-4.8); Lymphocytes % (A) 30 %; MCHC 34.9 g/dL (31.0-37.0); MCV 88.7 fL (80.0-100.0); Mean Platelet Volume 7.7; Monocytes # (A) 0.3 k/uL (0-1.0); Monocytes % (A) 5 %; Neutrophils # (A) 3.5 k/uL (1.3-7.7); Neutrophils % (A) 61 %; Platelet Count 238 k/uL (150-450); RBC 4.08 m/uL (3.80-5.40); RDW 13.1 % (11.5-15.5); WBC 5.8 k/uL (3.8-10.6)
[2022-11-05 08:32] LABS: Calcium 8.4 mg/dL (8.4-10.2); Potassium 4.5 mmol/L (3.5-5.1)
[2022-11-05 08:38] LABS: INR 2.6 (<1.2); Prothrombin Time 25.8 sec (9.0-12.0)
[2022-11-05] MEDS: ZINC SULFATE 220 MG CAP PO SCH (08:54)
[2022-11-05] MEDS: CHOLECALCIFEROL 25 MCG (1000 IU) TABLET PO SCH (08:54)
[2022-11-05] MEDS: QUEtiapine 25 MG TAB PO SCH ×2 (08:54→20:33)
[2022-11-05] MEDS: METOPROLOL TARTRATE 12.5 MG TAB PO SCH ×2 (08:54→20:33)
[2022-11-05] MEDS: PANTOPRAZOLE 40 MG TABLET PO SCH (08:55)
[2022-11-05] MEDS: lisinopriL 5 MG TAB PO SCH (08:55)
[2022-11-05] MEDS ORDERED: ALPRAZolam 0.25 MG TAB PO SCH (09:00)
[2022-11-05] MEDS ORDERED: FUROSEMIDE 20 MG TAB PO SCH (09:00)
[2022-11-05] MEDS ORDERED: bisacodyL 10 MG SUPP RECTAL STA (09:57)
[2022-11-05] MEDS ORDERED: LACTULOSE 20 GM/30 ML CUP PO ONE (10:15)
[2022-11-05] MEDS ORDERED: WARFARIN 2 MG TAB PO SCH (17:00)
--- NOTE | 2022-11-05 17:12 | P.HPIM ---
History of Present Illness H&P Date: 11/05/22 This is an 82 year old female with medical history of asthma, heart failure, stroke, DVT, parkinson's disease. Patient resides at [facility]. Patient was found to have COVID about 1 week ago at [facility] patient states she was then placed in isolation. She reports poor oral intake and increasing weakness over the last week as well. She presents with BUN of 40 and creatinine of 1.25 which has improved with IV hydration. She tested positive for COVID by PCR in the emergency center. She does report feeling fever and chills. No chest pain and no shortness of breath. Troponin is negative and proBNP is 342. Urinalysis is negative and urine drug toxicology is positive for TCA's and benzodiazepines. No white count. No fever, patient is on room air. Chest xray showing chronic changes without acute pulmonary process. Abdominal Pelvis CT showing moderate stool burden with small bowel feces correlate for fecal stasis/delayed transit. There is no obstructive uropathy. Small hiatal hernia and colonic diverticulosis is present. Brain CT is negative for acute intracranial process. Patients home dose of lasix will be held and also will recommend to D/C xanax. Patient will be gently hydrated. Physical therapy has been consulted. Patient is maintaining oxygen saturation on room air and will likely only require supportive care for the covid infection. REVIEW OF SYSTEMS: CONSTITUTIONAL: Reports fever, malaise and fatigue. HEENT: No recent visual problems or hearing problems. Denied any sore throat. CARDIOVASCULAR: No chest pain, orthopnea, PND, no palpitations, no syncope. PULMONARY: No shortness of breath, no cough, no hemoptysis. GASTROINTESTINAL: No diarrhea, no nausea, no vomiting, Reports abdominal pain. NEUROLOGICAL: No headaches, no weakness, no numbness. HEMATOLOGICAL: Denies any bleeding or petechiae. GENITOURINARY: Denies any burning micturition, frequency, or urgency. MUSCULOSKELETAL/RHEUMATOLOGICAL: Denies any joint pain, swelling, or any muscle pain. ENDOCRINE: Denies any polyuria or polydipsia. The rest of the 14-point review of systems is negative. PHYSICAL EXAMINATION: GENERAL: The patient is alert and oriented x3, not in any acute distress. Well developed, well nourished. Pale, and drowsy. HEENT: Pupils are round and equally reacting to light. EOMI. No scleral icterus. No conjunctival pallor. Normocephalic, atraumatic. No pharyngeal erythema. No thyromegaly. CARDIOVASCULAR: S1 and S2 present. No murmurs, rubs, or gallops. PULMONARY: Chest is clear to auscultation, no wheezing or crackles. ABDOMEN: Soft, nontender, nondistended, normoactive bowel sounds. No palpable organomegaly. MUSCULOSKELETAL: No joint swelling or deformity. EXTREMITIES: No cyanosis, clubbing, or pedal edema. Mild lower extremity edema patient reports is chronic. NEUROLOGICAL: Gross neurological examination did not reveal any focal deficits. Diffuse weakness. SKIN: No rashes. Assessment and plan Assessment -Generalized weakness and fatigue -Positive covid by PCR with no evidence for pneumonia -Acute kidney injury most likely prerenal azotemia from acute dehydration -Altered mental status likely toxix and metabolic encephalopathy from polypharmacy and dehydration -Constipation with delayed transit on imaging. -History of DVT anticoagulated with warfarin -Hypertension -GERD -History of stroke -Parkinson's disorder -History of asthma with no acute exacerbation -History of heart failure GI prophylaxis DVT prophylaxis Full Code Plan Continue with IV fluids Lactulose/dulcolax x 1 for constipation Dietary consultation PT/OT Continue with supportive care Possible return to [facility] tomorrow The impression and plan of care has been dictated by Yas Elizabeth, Nurse Practitioner as directed. Dr. Jaspreet MD I have performed a history and physical examination and medical decision making of this patient, discussed the same with the dictator, and agree with the dictators assessment and plan as written, documented as a scribe. Based on total visit time, I have performed more than 50% of this visit. Past Medical History Past Medical History: Asthma, Heart Failure, CVA/TIA, Deep Vein Thrombosis (DVT), GERD/Reflux, Hypertension, Memory Impairment, Musculoskeletal Disorder, N eurologic Disorder, Osteoarthritis (OA) Additional Past Medical History / Comment(s): Ulcerative colitis, diverticulitis, parkinson's disease, CVA which pt was unaware of having-showed on cat scan, several DVTs bilateral legs and pt states since she has had intermittent bilateral ankle edema, thrombophlebitis, PE-pt cannot recall laterallity, generalized arthritis, urinary leakage, UTIs, shingles x 2 History of Any Multi-Drug Resistant Organisms: ESBL Date of last positivie culture/infection: 07/09/21 ESBL-E.coli MDRO Source:: URINE ESBL Past Surgical History: Appendectomy, Cholecystectomy, Hysterectomy, Orthopedic Surgery, Tubal Ligation Additional Past Surgical History / Comment(s): L shoulder injury with surgery to repair, removals of DVTs bilateral legs, cataract removal/lens implants, colonoscopies, hemorrohoids surgery Past Anesthesia/Blood Transfusion Reactions: Postoperative Nausea & Vomiting (PONV) Additional Past Anesthesia/Blood Transfusion Reaction / Comment(s): Pt received blood with hysterectomy without reaction. Past Psychological History: Anxiety Smoking Status: Never smoker Past Alcohol Use History: None Reported Past Drug Use History: None Reported - Past Family History Father Family Medical History: Asthma, Cancer, COPD Additional Family Medical History / Comment(s): Gallbladder cancer Mother Family Medical History: Myocardial Infarction (DE) Additional Family Medical History / Comment(s): Mother of a DE at the age o f 48 yrs. Sister(s) Family Medical History: Deep Vein Thrombosis (DVT) Additional Family Medical History / Comment(s): Sister of a blood clot at age 38 yrs-pt cannot recall specifics. Medications and Allergies Home Medications Medication Instructions Recorded Confirmed Type Omeprazole [PriLOSEC] 20 mg PO DAILY@0600 01/11/19 11/04/22 History bisacodyL [Dulcolax] 5 mg PO DAILY@0900 PRN 02/19/19 11/04/22 History Carbidopa-Levodopa 25-100 mg 1 tab PO QID@05,09,13,17 07/30/19 11/04/22 History [Sinemet 25-100 mg] Carbidopa/Levodopa [Sinemet CR 1 tab PO HS@209910/15/19 11/04/22 History 50-200 mg] Melatonin [Melatonin ER] 10 mg PO HS@209910/15/19 11/04/22 History Mirabegron [Myrbetriq] 25 mg PO HS@209910/15/19 11/04/22 History Atorvastatin [Lipitor] 40 mg PO HS@209910/19/20 11/04/22 History Cholecalciferol [Vitamin D3 (25 50 mcg PO DAILY@0900 10/19/20 11/04/22 History Mcg = 1000 Iu)] Nitroglycerin Sl Tabs [Nitrostat] 0.4 mg SL Q5M PRN 10/19/20 11/04/22 History polyethylene glycoL 3350 [Miralax] 17 gm PO BID@0900,2100 10/19/20 11/04/22 History Mag Hydrox/Aluminum Hyd/Simeth 10 ml PO Q8H PRN 11/24/20 11/04/22 History [Mylanta Maximum Strength Liq] traMADol HCL [Ultram] 50 mg PO Q8H PRN #4 tab 01/11/21 11/04/22 Rx Furosemide [Lasix] 10 mg PO DAILY@0900 02/10/21 11/04/22 History Lactose-Reduced Food [Ensure Plus] 237 ml PO TID@0900,1300,2100 02/10/21 11/04/22 History Acetaminophen Tab [Tylenol] 650 mg PO Q4H PRN 10/27/21 11/04/22 History Loperamide [Imodium] 2 - 4 mg PO QID PRN MDD 16mg 10/27/21 11/04/22 History QUEtiapine FUMARATE [SEROquel] 25 mg PO BID@0900,2100 10/27/21 11/04/22 History Warfarin [Coumadin] 2 mg PO DAILY@1700 10/27/21 11/04/22 History Metoprolol Tartrate [Lopressor] 12.5 mg PO BID@0900,2100 #30 tab 01/28/22 11/04/22 Rx ALPRAZolam [Xanax] 0.25 mg PO BID@0900,2100 11/04/22 11/04/22 History Ascorbic Acid [Vitamin C] 500 mg PO DAILY@0900 11/04/22 11/04/22 History Zinc Gluconate [Zinc] 50 mg PO DAILY@0900 11/04/22 11/04/22 History lisinopriL [Zestril] 5 mg PO DAILY@0900 11/04/22 11/04/22 History Allergies Allergy/AdvReac Type Severity Reaction Status Date / Time Influenza Virus Vaccines Allergy Swelling Verified 11/04/22 21:22 Penicillins Allergy Anaphylaxis Verified 11/04/22 21:22 Iodinated Contrast Media AdvReac Chest Pain Verified 11/04/22 21:22 [Iodinated Contrast- Oral and IV Dye] Physical Exam Vitals: Vital Signs Temp Pulse Resp BP Pulse Ox 11/05/22 07:55 97.3 F L 75 16 143/68 97 11/05/22 06:00 72 16 140/68 97 11/05/22 03:35 98.1 F 74 18 150/70 97 11/05/22 02:10 64 18 129/53 96 11/04/22 23:34 62 18 127/52 97 11/04/22 21:51 63 16 131/55 96 11/04/22 20:48 62 20 146/63 96 11/04/22 20:32 98 F 64 16 145/63 97 11/04/22 20:27 97.8 F 66 16 145/64 97 Intake and Output 11/04/22 11/05/22 11/05/22 22:59 06:59 14:59 Other: Voiding Method Diaper External Catheter Weight 70 kg Results CBC & Chem 7: 11/05/22 07:45 11/05/22 07:45 Labs: Abnormal Lab Results - Last 24 Hours (Table) 11/04/22 11/04/22 11/04/22 Range/Units 21:05 21:05 21:05 PT 24.1 H (9.0-12.0) sec INR 2.5 H (<1.2) Carbon Dioxide 33 H (22-30) mmol/L BUN 40 H (7-17) mg/dL Creatinine 1.25 H (0.52-1.04) mg/dL Total Protein 6.1 L (6.3-8.2) g/dL Albumin 3.1 L (3.5-5.0) g/dL U Tricyclic Antidepress Detected H (NotDetected) U Benzodiazepines Scrn Detected H (NotDetected) SARS-CoV-2 (PCR) (Not Detectd) 11/04/22 11/05/22 11/05/22 Range/Units 21:05 07:45 07:45 PT 25.8 H (9.0-12.0) sec INR 2.6 H (<1.2) Carbon Dioxide (22-30) mmol/L BUN 29 H (7-17) mg/dL Creatinine (0.52-1.04) mg/dL Total Protein (6.3-8.2) g/dL Albumin (3.5-5.0) g/dL U Tricyclic Antidepress (NotDetected) U Benzodiazepines Scrn (NotDetected) SARS-CoV-2 (PCR) Detected A (Not Detectd) Assessment and Plan Time with Patient: Less than 30
[2022-11-05] MEDS ORDERED: NON FORMULARY DRUG (Mirabegron [Myrbetriq] 25 MG Tab.Er.24h) PO SCH (21:00)
[2022-11-05] MEDS ORDERED: CARBIDOPA-LEVODOPA ER 50-200MG 1 EACH TABLET.ER PO SCH (21:00)
[2022-11-05] MEDS ORDERED: ATORVASTATIN 40 MG TAB PO SCH (21:00)
[2022-11-05 22:22] VITALS: RESP 18
[2022-11-06] MEDS: PANTOPRAZOLE 40 MG TABLET PO SCH (05:49)
[2022-11-06] MEDS: CARBIDOPA-LEVODOPA 25-100 MG 1 EACH TAB PO SCH ×3 (05:50→13:16)
[2022-11-06 07:29] LABS: INR 2.7 (<1.2); Prothrombin Time 26.3 sec (9.0-12.0)
[2022-11-06 08:15] VITALS: TEMP 97.4
[2022-11-06 10:08] VITALS: BP 115/63; PULSE 62
[2022-11-06] MEDS: lisinopriL 5 MG TAB PO SCH ×2 (10:09→10:11)
[2022-11-06] MEDS: ZINC SULFATE 220 MG CAP PO SCH (10:09)
[2022-11-06] MEDS: CHOLECALCIFEROL 25 MCG (1000 IU) TABLET PO SCH (10:09)
[2022-11-06] MEDS: QUEtiapine 25 MG TAB PO SCH (10:09)
[2022-11-06] MEDS: METOPROLOL TARTRATE 12.5 MG TAB PO SCH ×3 (10:10→10:57)
--- NOTE | 2022-11-06 13:02 | P.DS ---
Providers Date of admission: 11/05/22 01:02 Attending physician: Sandro Higuera Primary care physician: Jesus Cooney Hospital Course: Final Diagnosis -Generalized weakness and fatigue -Positive covid by PCR with no evidence for pneumonia -Acute kidney injury most likely prerenal azotemia from acute dehydration resolved -Altered mental status likely toxix and metabolic encephalopathy from polypharmacy and dehydration -Constipation with delayed transit on imaging. -History of DVT anticoagulated with warfarin -Hypertension -GERD -History of stroke -Parkinson's disorder -History of asthma with no acute exacerbation -History of heart failure -History of dementia per family Full Code Discharge Disposition Patient stable for discharge back to [facility]. Patient recommended to discontinue xanax. Patient also recommended to discontinue lasix on discharge and follow up with BMP in 2 to 3 days. Recommend to continue supportive care. Patient to continue lactulose 20 gm daily as needed for constipation. Hospital Course This is an 82 year old female with medical history of asthma, heart failure, stroke, DVT, parkinson's disease. Patient resides at [facility]. Patient was found to have COVID about 1 week ago at [facility] patient states she was then placed in isolation. She reports poor oral intake and increasing weakness over the last week as well. She presents with BUN of 40 and creatinine of 1.25 which has improved with IV hydration. She tested positive for COVID by PCR in the emergency center. She does report feeling fever and chills. No chest pain and no shortness of breath. Troponin is negative and proBNP is 342. Urinalysis is negative and urine drug toxicology is positive for TCA's and benzodiazepines. No white count. No fever, patient is on room air. Chest xray showing chronic changes without acute pulmonary process. Abdominal Pelvis CT showing moderate stool burden with small bowel feces correlate for fecal stasis/delayed transit. There is no obstructive uropathy. Small hiatal hernia and colonic diverticulosis is present. Brain CT is negative for acute intracranial process. Patients home dose of lasix will be held and also will recommend to D/C xanax. Patient will be gently hydrated. Patient is maintaining oxygen saturation on room air and will likely only require supportive care for the covid infection. In regards to the constipation Patient was given luctulose and dulcolax and had multiple bowel movements. Overall she is feeling better today. Will be discharged back to [facility]. 11/05/2022 Patient is evaluated today sitting up in the chair. No acute events overnight patient states she slept well last night. She is alert x 3 today. She is denying chest pain, no shortness of breath. No fever or chills. Tolerating diet. Lungs are clear, S1 S2 auscultated abdomen is soft and nontender. Kidney function has normalized. INR today is 2.7. Patient is afebrile, heart rate 62, blood pressure 115/63. 96% on room air. Cleared for discharge. Please see medication reconciliation for a list of current medication. Thank you for allowing us to participate in the care of this patient. The impression and plan of care has been dictated by Yas Elizabeth, Nurse Practitioner as directed. Dr. Jaspreet MD I have performed a history and physical examination and medical decision making of this patient, discussed the same with the dictator, and agree with the dictators assessment and plan as written, documented as a scribe. Based on total visit time, I have performed more than 50% of this visit. Patient Condition at Discharge: Stable Plan - Discharge Summary New Discharge Prescriptions: New traMADol HCl [Ultram] 50 mg PO Q8H PRN #4 tab PRN Reason: Pain Lactulose 20 gm PO DAILY PRN #120 ml PRN Reason: Constipation Continue Omeprazole [PriLOSEC] 20 mg PO DAILY@0600 bisacodyL [Dulcolax] 5 mg PO DAILY@0900 PRN PRN Reason: HOLD FOR LOOSE STOOLS Carbidopa-Levodopa 25-100 mg [Sinemet 25-100 mg] 1 tab PO QID@05,09,,17 Carbidopa/Levodopa [Sinemet CR 50-200 mg] 1 tab PO HS@2100 Melatonin [Melatonin ER] 10 mg PO HS@2100 Mirabegron [Myrbetriq] 25 mg PO HS@2100 Nitroglycerin Sl Tabs [Nitrostat] 0.4 mg SL Q5M PRN PRN Reason: Chest Pain polyethylene glycoL 3350 [Miralax] 17 gm PO BID@0900,2100 Cholecalciferol [Vitamin D3 (25 Mcg = 1000 Iu)] 50 mcg PO DAILY@0900 Atorvastatin [Lipitor] 40 mg PO HS@2100 Lactose-Reduced Food [Ensure Plus] 237 ml PO TID@0900,1300,2100 Warfarin [Coumadin] 2 mg PO DAILY@1700 Loperamide [Imodium] 2 - 4 mg PO QID PRN MDD 16mg PRN Reason: Diarrhea Ascorbic Acid [Vitamin C] 500 mg PO DAILY@0900 lisinopriL [Zestril] 5 mg PO DAILY@0900 Mag Hydrox/Aluminum Hyd/Simeth [Mylanta Maximum Strength Liq] 10 ml PO Q8H PRN PRN Reason: upset stomach Acetaminophen Tab [Tylenol] 650 mg PO Q4H PRN PRN Reason: GENERAL DISCOMFORT QUEtiapine FUMARATE [SEROquel] 25 mg PO BID@899,2099 Metoprolol Tartrate [Lopressor] 12.5 mg PO BID@899,2099 #30 tab Zinc Gluconate [Zinc] 50 mg PO DAILY@0900 Discontinued traMADol HCL [Ultram] 50 mg PO Q8H PRN #4 tab PRN Reason: Pain Furosemide [Lasix] 10 mg PO DAILY@0900 ALPRAZolam [Xanax] 0.25 mg PO BID@899,2099 Discharge Medication List Omeprazole [PriLOSEC] 20 mg PO DAILY@0600 01/11/19 [History] bisacodyL [Dulcolax] 5 mg PO DAILY@899 PRN 02/19/19 [History] Carbidopa-Levodopa 25-100 mg [Sinemet 25-100 mg] 1 tab PO QID@,,,07/30/19 [History] Carbidopa/Levodopa [Sinemet CR 50-200 mg] 1 tab PO HS@209910/15/19 [History] Melatonin [Melatonin ER] 10 mg PO HS@209910/15/19 [History] Mirabegron [Myrbetriq] 25 mg PO HS@209910/15/19 [History] Atorvastatin [Lipitor] 40 mg PO HS@209910/19/20 [History] Cholecalciferol [Vitamin D3 (25 Mcg = 1000 Iu)] 50 mcg PO DAILY@0910/19/20 [History] Nitroglycerin Sl Tabs [Nitrostat] 0.4 mg SL Q5M PRN 10/19/20 [History] polyethylene glycoL 3350 [Miralax] 17 gm PO BID@0900,209910/19/20 [History] Mag Hydrox/Aluminum Hyd/Simeth [Mylanta Maximum Strength Liq] 10 ml PO Q8H PRN 11/24/20 [History] Lactose-Reduced Food [Ensure Plus] 237 ml PO TID@0900,1300,2100 02/10/21 [History] Acetaminophen Tab [Tylenol] 650 mg PO Q4H PRN 10/27/21 [History] Loperamide [Imodium] 2 - 4 mg PO QID PRN MDD 16mg 10/27/21 [History] QUEtiapine FUMARATE [SEROquel] 25 mg PO BID@0900,2100 10/27/21 [History] Warfarin [Coumadin] 2 mg PO DAILY@1700 10/27/21 [History] Metoprolol Tartrate [Lopressor] 12.5 mg PO BID@0900,2100 #30 tab 01/28/22 [Rx] Ascorbic Acid [Vitamin C] 500 mg PO DAILY@0900 11/04/22 [History] Zinc Gluconate [Zinc] 50 mg PO DAILY@0900 11/04/22 [History] lisinopriL [Zestril] 5 mg PO DAILY@0900 11/04/22 [History] Lactulose 20 gm PO DAILY PRN #120 ml 11/06/22 [Rx] traMADol HCl [Ultram] 50 mg PO Q8H PRN #4 tab 11/06/22 [Rx] Follow up Appointment(s)/Referral(s): Jesus Cooney MD [Primary Care Provider] - 1-2 days Ambulatory/Diagnostic Orders: Basic Metabolic Panel [LAB.AMB] Time Frame: 3 Days, Location: None Selected Prothrombin Time INR [LAB.AMB] Time Frame: 3 Days, Location: None Selected Activity/Diet/Wound Care/Special Instructions: Recommend holding xanax and lasix on discharge Repeat BMP and INR in 3 days Patient recommend for latculose daily as needed for constipation Discharge Disposition: TRANSFER TO SNF/ECF
== END 2022-11-06 14:36 ==
LOC: EC 20:14 → 6NMEDSUR 11-05 01:02
PROVIDERS: ADMIT Hospitalist; ATTEND Hospitalist
DX: U07.1 COVID-19 (principal); R41.82 Altered mental status, unspecified; E86.0 Dehydration; G20 Parkinson's disease; F02.80 Dementia in other diseases classified elsewhere, unspecified severity, without behavioral disturbance, psychotic disturbance, mood disturbance, and anxiety; J45.909 Unspecified asthma, uncomplicated; N17.9 Acute kidney failure, unspecified; K59.00 Constipation, unspecified; I11.0 Hypertensive heart disease with heart failure; I50.9 Heart failure, unspecified; I48.20 Chronic atrial fibrillation, unspecified; K21.9 Gastro-esophageal reflux disease without esophagitis; F41.9 Anxiety disorder, unspecified; Z86.718 Personal history of other venous thrombosis and embolism; Z86.73 Personal history of transient ischemic attack (TIA), and cerebral infarction without residual deficits; Z79.01 Long term (current) use of anticoagulants; Z79.899 Other long term (current) drug therapy; Z88.0 Allergy status to penicillin
CPT/HCPCS: 96361 ×3; 96360; 99285; 51798; 36415; 93005; 97162; 97166; 83880; 80053; 80048; 82140; 83605; 84484; 85025 ×2; 85610 ×3; 85730; 81003; 87040; 80306; 87636; 71045; 70450; 74176; G0378 ×2; G0480; 80320

== ENCOUNTER 2023-06-08 23:31 | Emergency (ER) | payer MEDICARE, OTHER ==
--- NOTE | 2023-06-08 23:48 | ED ---
Altered Mental Status HPI - General Chief Complaint: Altered Mental Status Stated Complaint: Alt mental status Time Seen by Provider: 06/08/23 23:36 Source: patient, EMS, RN notes reviewed, old records reviewed Mode of arrival: EMS Limitations: no limitations - History of Present Illness Initial Comments: This is a 83-year-old female to the emergency department for evaluation today. Patient presents today for evaluation regards to altered mental status and unresponsiveness. Patient is presenting from extended-care facility for evaluation regards to not acting appropriately. MD Complaint: altered mental status, confusion -: hour(s) Severity: mild Consistency of Symptoms: waxing and waning, getting worse Associated Symptoms: weakness Treatments Prior to Arrival: IV fluid - Related Data Home Medications Medication Instructions Recorded Confirmed Omeprazole [PriLOSEC] 20 mg PO DAILY@0600 01/11/19 11/04/22 bisacodyL [Dulcolax] 5 mg PO DAILY@0900 PRN 02/19/19 11/04/22 Carbidopa-Levodopa 25-100 mg 1 tab PO QID@,,,07/30/19 11/04/22 [Sinemet 25-100 mg] Carbidopa/Levodopa [Sinemet CR 1 tab PO HS@209910/15/19 11/04/22 50-200 mg] Melatonin [Melatonin ER] 10 mg PO HS@209910/15/19 11/04/22 Mirabegron [Myrbetriq] 25 mg PO HS@209910/15/19 11/04/22 Atorvastatin [Lipitor] 40 mg PO HS@209910/19/20 11/04/22 Cholecalciferol [Vitamin D3 (25 50 mcg PO DAILY@0900 10/19/20 11/04/22 Mcg = 1000 Iu)] Nitroglycerin Sl Tabs [Nitrostat] 0.4 mg SL Q5M PRN 10/19/20 11/04/22 polyethylene glycoL 3350 [Miralax] 17 gm PO BID@0900,209910/19/20 11/04/22 Mag Hydrox/Aluminum Hyd/Simeth 10 ml PO Q8H PRN 11/24/20 11/04/22 [Mylanta Maximum Strength Liq] Lactose-Reduced Food [Ensure Plus] 237 ml PO TID@0900,1300,209902/10/21 04/10/24 Acetaminophen Tab [Tylenol] 650 mg PO Q4H PRN 10/27/21 11/04/22 Loperamide [Imodium] 2 - 4 mg PO QID PRN MDD 16mg 10/27/21 11/04/22 QUEtiapine FUMARATE [SEROquel] 25 mg PO BID@0900,2100 10/27/21 11/04/22 Warfarin [Coumadin] 2 mg PO DAILY@1700 10/27/21 11/04/22 Ascorbic Acid [Vitamin C] 500 mg PO DAILY@0900 11/04/22 11/04/22 Zinc Gluconate [Zinc] 50 mg PO DAILY@0900 11/04/22 11/04/22 lisinopriL [Zestril] 5 mg PO DAILY@0900 11/04/22 11/04/22 Previous Rx's Medication Instructions Recorded Metoprolol Tartrate [Lopressor] 12.5 mg PO BID@0900,2100 #30 tab 01/28/22 Lactulose 20 gm PO DAILY PRN #120 ml 11/06/22 traMADol HCl [Ultram] 50 mg PO Q8H PRN #4 tab 11/06/22 Allergies Allergy/AdvReac Type Severity Reaction Status Date / Time Influenza Virus Vaccines Allergy Swelling Verified 06/08/23 23:39 Penicillins Allergy Anaphylaxis Verified 06/08/23 23:39 Iodinated Contrast Media AdvReac Chest Pain Verified 06/08/23 23:39 [Iodinated Contrast- Oral and IV Dye] Review of Systems ROS Statement: Those systems with pertinent positive or pertinent negative responses have been documented in the HPI. ROS Other: All systems not noted in ROS Statement are negative. Past Medical History Past Medical History: Asthma, Heart Failure, CVA/TIA, Deep Vein Thrombosis (DVT), GERD/Reflux, Hypertension, Memory Impairment, Musculoskeletal Disorder, Neurologic Disorder, Osteoarthritis (OA) Additional Past Medical History / Comment(s): Ulcerative colitis, diverticu litis, parkinson's disease, CVA which pt was unaware of having-showed on cat scan, several DVTs bilateral legs and pt states since she has had intermittent bilateral ankle edema, thrombophlebitis, PE-pt cannot recall laterallity, generalized arthritis, urinary leakage, UTIs, shingles x 2 History of Any Multi-Drug Resistant Organisms: ESBL Date of last positivie culture/infection: 07/09/21 ESBL-E.coli MDRO Source:: URINE ESBL Past Surgical History: Appendectomy, Cholecystectomy, Hysterectomy, Orthopedic Surgery, Tubal Ligation Additional Past Surgical History / Comment(s): L shoulder injury with surgery to repair, removals of DVTs bilateral legs, cataract removal/lens implants, colonoscopies, hemorrohoids surgery Past Anesthesia/Blood Transfusion Reactions: Postoperative Nausea & Vomiting (PONV) Additional Past Anesthesia/Blood Transfusion Reaction / Comment(s): Pt received blood with hysterectomy without reaction. Past Psychological History: Anxiety Smoking Status: Never smoker Past Alcohol Use History: None Reported Past Drug Use History: None Reported - Past Family History Father Family Medical History: Asthma, Cancer, COPD Additional Family Medical History / Comment(s): Gallbladder cancer Mother Family Medical History: Myocardial Infarction (NM) Additional Family Medical History / Comment(s): Mother of a NM at the age of 48 yrs. Sister(s) Family Medical History: Deep Vein Thrombosis (DVT) Additional Family Medical History / Comment(s): Sister of a blood clot at age 38 yrs-pt cannot recall specifics. General Exam Limitations: altered mental status General appearance: alert, in no apparent distress Head exam: Present: atraumatic, normocephalic, normal inspection Eye exam: Present: normal appearance, PERRL, EOMI. Absent: scleral icterus, conjunctival injection, periorbital swelling ENT exam: Present: normal exam, mucous membranes moist Neck exam: Present: normal inspection. Absent: tenderness, meningismus, lymphadenopathy Respiratory exam: Present: normal lung sounds bilaterally. Absent: respiratory distress, wheezes, rales, rhonchi, stridor Cardiovascular Exam: Present: regular rate, normal rhythm, normal heart sounds. Absent: systolic murmur, diastolic murmur, rubs, gallop, clicks GI/Abdominal exam: Present: soft, normal bowel sounds. Absent: distended, tenderness, guarding, rebound, rigid Extremities exam: Present: normal inspection, full ROM, normal capillary refill. Absent: tenderness, pedal edema, joint swelling, calf tenderness Back exam: Present: normal inspection Neurological exam: Present: alert, oriented X3, CN II-XII intact Psychiatric exam: Present: normal affect, normal mood Skin exam: Present: warm, dry, intact, normal color. Absent: rash Course Vital Signs 06/08/23 06/09/23 06/09/23 23:36 01:39 03:33 Temperature 97.5 F L 97.5 F L Pulse Rate 72 74 80 Respiratory 18 18 20 Rate Blood Pressure 186/79 168/70 193/80 O2 Sat by Pulse 94 L 94 L 94 L Oximetry - Reevaluation(s) Reevaluation #1: 06/09/23 01:31 Medical record is reviewed Reevaluation #2: Patient symptoms are improved here in the ER Reevaluation #3: Patient informed results and questions answered Reevaluation #4: 06/09/23 01:31 Was pt. sent in by a medical professional or institution (, [facility], CRYPTANALYST, urgent care, hospital, or halfway...) When possible be specific @ -no Did you speak to anyone other than the patient for history (EMS, parent, family, police, friend...)? What history was obtained from this source @ -no Did you review nursing and triage notes (agree or disagree)? Why? @ -agree Are old charts reviewed (outside hosp., previous admission, EMS record, old EKG, old radiological studies, urgent care reports/EKG's, halfway records)? Report findings @ -yes Differential Diagnosis (chest pain, altered mental status, abdominal pain women, abdominal pain men, vaginal bleeding, weakness, fever, dyspnea, syncope, headache, dizziness, GI bleed, back pain, seizure, CVA, palpatations, mental health, musculoskeletal)? @ -prior EKG interpreted by me (3pts min.). @ -yes X-rays interpreted by me (1pt min.). @ -yes CT interpreted by me (1pt min.). @ -no U/S interpreted by me (1pt. min.). @ -no What testing was considered but not performed or refused? (CT, X-rays, U/S, labs)? Why? @ -none What meds were considered but not given or refused? Why? @ -none Did you discuss the management of the patient with other professionals (professionals i.e. RENA[facility] Huddleston, CRYPTANALYST, lab, RT, psych nurse, public health social worker, pattern maker, teacher, mechanical engineering officer, caseworker protective services)? Give summary @ -no Was smoking cessation discussed for >3mins.? @ -no Was critical care preformed (if so, how long)? @ -no Were there social determinants of health that impacted care today? How? (Homelessness, low income, unemployed, alcoholism, drug addiction, transportation, low edu. Level, literacy, decrease access to med. care, retirement, rehab)? @ -none Was there de-escalation of care discussed even if they declined (Discuss DNR or withdrawal of care, Hospice)? DNR status @ -no What co-morbidities impacted this encounter? (DM, HTN, Smoking, COPD, CAD, Cancer, CVA, ARF, Chemo, Hep., AIDS, mental health diagnosis, sleep apnea, morbid obesity)? @ -none Was patient admitted / discharged? Hospital course, mention meds given and route, prescriptions, significant lab abnormalities, going to OR and other pertinent info. @ - 83 female will be sent back to extended care facility, patient remains awake and alert throughout ER stay is no acute significant findings here in the ER and can be discharged Discharge Undiagnosed new problem with uncertain prognosis? @ -no Drug Therapy requiring intensive monitoring for toxicity (Heparin, Nitro, Ins ulin, Cardizem)? @ -no Were any procedures done? @ -no Diagnosis/symptom? @ -Altered mental status Acute, or Chronic, or Acute on Chronic? @ -Acute Uncomplicated (without systemic symptoms) or Complicated (systemic symptoms)? @ -Complicated Side effects of treatment? @ -no Exacerbation, Progression, or Severe Exacerbation? @ -exacerbation Poses a threat to life or bodily function? How? (Chest pain, USA, NM, pneumonia, PE, COPD, DKA, ARF, appy, cholecystitis, CVA, Diverticulitis, Homicidal, Suicidal, threat to staff... and all critical care pts) @ -yes with extremes of age Reevaluation #5: 06/09/23 01:31 Differential Altered Mental Status: Hypoglycemia, DKA, hypercapnia, ETOH, overdose, CO poisoning, trauma, myxedema coma, HTN encephalopathy, infection, encephalitis, psychosis, intercranial hemorrhage, hepatic encephalopathy, meningitis, CVA, this is not meant to be an all-inclusive list Medical Decision Making - Medical Decision Making 83 female will be sent back to extended care facility, patient remains awake and alert throughout ER stay is no acute significant findings here in the ER and can be discharged - Lab Data Result diagrams: 06/09/23 00:26 06/09/23 00:26 Lab Results 06/09/23 06/09/23 06/09/23 Range/Units 00: 00: 00:26 WBC 5.6 (3.8-10.6) k/uL RBC 4.07 (3.80-5.40) m/uL Hgb 13.0 (11.4-16.0) gm/dL Hct 37.7 (34.0-46.0) % MCV 92.7 (80.0-100.0) fL MCH 31.9 (25.0-35.0) pg MCHC 34.4 (31.0-37.0) g/dL RDW 12.2 (11.5-15.5) % Plt Count 170 (150-450) k/uL MPV 8.3 Neutrophils % 44 % Lymphocytes % 45 % Monocytes % 5 % Eosinophils % 3 % Basophils % 0 % Neutrophils # 2.5 (1.3-7.7) k/uL Lymphocytes # 2.5 (1.0-4.8) k/uL Monocytes # 0.3 (0-1.0) k/uL Eosinophils # 0.2 (0-0.7) k/uL Basophils # 0.0 (0-0.2) k/uL PT 28.3 H (10.0-12.5) sec INR 2.9 H (<1.2) APTT 31.8 H (22.0-30.0) sec Sodium 139 (137-145) mmol/L Potassium 3.6 (3.5-5.1) mmol/L Chloride 107 (98-107) mmol/L Carbon Dioxide 28 (22-30) mmol/L Anion Gap 4 mmol/L BUN 16 (7-17) mg/dL Creatinine 0.54 (0.52-1.04) mg/dL Est GFR (CKD-EPI)AfAm >90 (>60 ml/min/1.73 sqM) Est GFR (CKD-EPI)NonAf 88 (>60 ml/min/1.73 sqM) Glucose 88 (74-99) mg/dL Plasma Lactic Acid Abdiaziz (0.7-2.0) mmol/L Calcium 8.2 L (8.4-10.2) mg/dL Phosphorus 3.1 (2.5-4.5) mg/dL Magnesium 2.0 (1.6-2.3) mg/dL Total Bilirubin 0.7 (0.2-1.3) mg/dL AST 25 (14-36) U/L ALT 9 (4-34) U/L Alkaline Phosphatase 57 (38-126) U/L Troponin I (0.000-0.034) ng/mL NT-Pro-B Natriuret Pep 550 pg/mL Total Protein 5.4 L (6.3-8.2) g/dL Albumin 3.0 L (3.5-5.0) g/dL 06/09/23 06/09/23 Range/Units 00:26 00:26 WBC (3.8-10.6) k/uL RBC (3.80-5.40) m/uL Hgb (11.4-16.0) gm/dL Hct (34.0-46.0) % MCV (80.0-100.0) fL MCH (25.0-35.0) pg MCHC (31.0-37.0) g/dL RDW (11.5-15.5) % Plt Count (150-450) k/uL MPV Neutrophils % % Lymphocytes % % Monocytes % % Eosinophils % % Basophils % % Neutrophils # (1.3-7.7) k/uL Lymphocytes # (1.0-4.8) k/uL Monocytes # (0-1.0) k/uL Eosinophils # (0-0.7) k/uL Basophils # (0-0.2) k/uL PT (10.0-12.5) sec INR (<1.2) APTT (22.0-30.0) sec Sodium (137-145) mmol/L Potassium (3.5-5.1) mmol/L Chloride (98-107) mmol/L Carbon Dioxide (22-30) mmol/L Anion Gap mmol/L BUN (7-17) mg/dL Creatinine (0.52-1.04) mg/dL Est GFR (CKD-EPI)AfAm (>60 ml/min/1.73 sqM) Est GFR (CKD-EPI)NonAf (>60 ml/min/1.73 sqM) Glucose (74-99) mg/dL Plasma Lactic Acid Abdiaziz 0.8 (0.7-2.0) mmol/L Calcium (8.4-10.2) mg/dL Phosphorus (2.5-4.5) mg/dL Magnesium (1.6-2.3) mg/dL Total Bilirubin (0.2-1.3) mg/dL AST (14-36) U/L ALT (4-34) U/L Alkaline Phosphatase (38-126) U/L Troponin I 0.021 (0.000-0.034) ng/mL NT-Pro-B Natriuret Pep pg/mL Total Protein (6.3-8.2) g/dL Albumin (3.5-5.0) g/dL - EKG Data -: EKG Interpreted by Me (EKG is sinus 71 NE 160 QRS 74 QTC 395) - Radiology Data Radiology results: report reviewed (Chest x-rays negative for acute disease), image reviewed Disposition Clinical Impression: Weakness, Altered mental state Disposition: HOME SELF-CARE Condition: Fair Instructions (If sedation given, give patient instructions): Altered Mental Status (ED) Is patient prescribed a controlled substance at d/c from ED?: No Referrals: Jesus Cooney MD [Primary Care Provider] - 1-2 days Time of Disposition: 03:00
[2023-06-08] MEDS ORDERED: SODIUM CHLORIDE 0.9% 500 ML 500 ML IV STA (23:49)
[2023-06-08 23:54] VITALS: TEMP 97.5
[2023-06-09 00:50] LABS: Basophils % (A) 0 %; Eosinophils # (A) 0.2 k/uL (0-0.7); Eosinophils % (A) 3 %; HCT 37.7 % (34.0-46.0); Lymphocytes # (A) 2.5 k/uL (1.0-4.8); Lymphocytes % (A) 45 %; MCH 31.9 pg (25.0-35.0); MCHC 34.4 g/dL (31.0-37.0); MCV 92.7 fL (80.0-100.0); Mean Platelet Volume 8.3; Monocytes # (A) 0.3 k/uL (0-1.0); Monocytes % (A) 5 %; Neutrophils # (A) 2.5 k/uL (1.3-7.7); Neutrophils % (A) 44 %; Platelet Count 170 k/uL (150-450); RBC 4.07 m/uL (3.80-5.40); RDW 12.2 % (11.5-15.5); WBC 5.6 k/uL (3.8-10.6)
[2023-06-09 01:02] LABS: INR 2.9 (<1.2); Partial Thromboplastin Time 31.8 sec (22.0-30.0); Prothrombin Time 28.3 sec (10.0-12.5)
[2023-06-09 01:25] LABS: ALT 9 U/L (4-34); AST 25 U/L (14-36); African American GFR (CKD) >90 (>60 ml/min/1.73 sqM); Alkaline Phosphatase 57 U/L (38-126); Anion Gap 4 mmol/L; Blood Urea Nitrogen 16 mg/dL (7-17); Calcium 8.2 mg/dL (8.4-10.2); Carbon Dioxide 28 mmol/L (22-30); Chloride 107 mmol/L (98-107); Glucose 88 mg/dL (74-99); Non-African American GFR(CKD) 88 (>60 ml/min/1.73 sqM); Phosphorus 3.1 mg/dL (2.5-4.5); Potassium 3.6 mmol/L (3.5-5.1); Sodium 139 mmol/L (137-145); Total Bilirubin 0.7 mg/dL (0.2-1.3); Total Protein 5.4 g/dL (6.3-8.2)
[2023-06-09 01:31] LABS: NT-Pro-B-Type Natriuretic Pept 550 pg/mL
--- NOTE | 2023-06-09 02:58 | XR ---
EXAM: XR Chest, 1 View CLINICAL HISTORY: ITS.REASON XR Reason: ams TECHNIQUE: Frontal view of the chest. COMPARISON: No relevant prior studies available. IMPRESSION: Cardiomegaly. Elevated right hemidiaphragm. Mild right basilar opacity
[2023-06-09 03:47] VITALS: BP 193/80; PULSE 80; RESP 20
== END 2023-06-09 04:00 | disposition home or self-care (01) ==
LOC: EC 23:31
DX: R53.1 Weakness (principal); R41.82 Altered mental status, unspecified; J45.909 Unspecified asthma, uncomplicated; I11.0 Hypertensive heart disease with heart failure; I50.9 Heart failure, unspecified; K21.9 Gastro-esophageal reflux disease without esophagitis; M19.90 Unspecified osteoarthritis, unspecified site; F41.9 Anxiety disorder, unspecified; Z86.73 Personal history of transient ischemic attack (TIA), and cerebral infarction without residual deficits; Z86.718 Personal history of other venous thrombosis and embolism; Z88.7 Allergy status to serum and vaccine; Z88.0 Allergy status to penicillin; Z91.041 Radiographic dye allergy status; Z79.01 Long term (current) use of anticoagulants; Z79.899 Other long term (current) drug therapy
CPT/HCPCS: 36415; 71045; 80053; 83605; 83735; 83880; 84100; 84484; 85025; 85610; 85730; 93005; 96360; 99285

== ENCOUNTER 2024-04-05 19:37 | Emergency (ER) | payer MEDICARE, OTHER ==
[2024-04-05 20:37] VITALS: RESP 16; TEMP 97.7
[2024-04-05] MEDS: ACETAMINOPHEN TAB 325 MG TAB PO STA (21:00)
[2024-04-05 21:09] LABS: Basophils % (A) 1 %; Eosinophils # (A) 0.2 k/uL (0-0.7); Eosinophils % (A) 3 %; HCT 36.4 % (34.0-46.0); HGB 12.5 gm/dL (11.4-16.0); Lymphocytes # (A) 1.9 k/uL (1.0-4.8); Lymphocytes % (A) 38 %; MCH 32.1 pg (25.0-35.0); MCHC 34.4 g/dL (31.0-37.0); MCV 93.5 fL (80.0-100.0); Monocytes # (A) 0.3 k/uL (0-1.0); Monocytes % (A) 6 %; Neutrophils # (A) 2.5 k/uL (1.3-7.7); Neutrophils % (A) 50 %; Platelet Count 199 k/uL (150-450); RBC 3.89 m/uL (3.80-5.40); RDW 12.4 % (11.5-15.5); WBC 4.9 k/uL (3.8-10.6)
[2024-04-05 21:25] LABS: ALT 7 U/L (4-34); AST 23 U/L (14-36); African American GFR (CKD) 84 (>60 ml/min/1.73 sqM); Albumin 3.4 g/dL (3.5-5.0); Alkaline Phosphatase 50 U/L (38-126); Anion Gap 4 mmol/L; Blood Urea Nitrogen 18 mg/dL (7-17); Calcium 8.6 mg/dL (8.4-10.2); Carbon Dioxide 29 mmol/L (22-30); Chloride 106 mmol/L (98-107); Glucose 128 mg/dL (74-99); Non-African American GFR(CKD) 73 (>60 ml/min/1.73 sqM); Potassium 3.6 mmol/L (3.5-5.1); Sodium 139 mmol/L (137-145); Total Bilirubin 0.6 mg/dL (0.2-1.3)
[2024-04-05 21:28] LABS: INR 2.5 (<1.2)
[2024-04-05 21:29] LABS: Partial Thromboplastin Time 28.7 sec (22.0-30.0); Prothrombin Time 24.7 sec (10.0-12.5)
--- NOTE | 2024-04-05 21:42 | XR ---
EXAMINATION TYPE: XR shoulder limited LT DATE OF EXAM: 04/05/2024 COMPARISON: None HISTORY: Pain TECHNIQUE: Left Shoulder examined in 2 projections. FINDINGS: The humeral head articulates with the glenoid. The acromio-clavicular junction is normal. No acute fractures or dislocations are evident. A follow up study can be performed 7-10 days from acute trauma for continued pain. MRI can be perfor med if soft tissue evaluation would be of benefit. IMPRESSION: 1. No acute osseous shoulder abnormality.
--- NOTE | 2024-04-05 21:50 | CT ---
EXAMINATION TYPE: CT brain aung ruggiero DATE OF EXAM: 04/05/2024 COMPARISON: None HISTORY: Brought by EMS for fall on coumadin, pt transfer from [facility]. States she tripped in bat hroom while trying to go back to her bed. A&O baseline. c/o Pain- tailbone from broken tailbone about 1 yr prior, left shoulder pain- in history + right flank abrasion, no lumps/bumps on head. + ccollar . CT DLP: 1261.8 mGycm, Automated exposure control for dose reduction was used. CONTRAST: Patient injected with 0 mL of Isovue 300. CT of the brain is performed utilizing 3 mm thick sections through the posterior fossa and 3 mm thick sections through the remaining calvarium. Study is performed within 24 hours of arrival to the hospital. No abnormal hyperdensity is present to suggest an acute intracranial hemorrhage. No mass lesion is evident. No acute infarcts are evident. Ventricles and sulci are appropriate for the patient age. Paranasal sinuses and mastoid air cells within the [id number] are clear. IMPRESSIONS: 1. No acute intracranial process. Follow-up MRI can be performed as clinically indicated. CT cervical spine. COMPARISON: None CT of the cervical spine is performed in the axial plane at 2 mm thick sections. Reconstructed image s in the coronal, and sagittal plane are reviewed on the computer. No acute fractures are evident. Vertebral body alignment is normal. There is loss of disc height C4-5. Remaining disc height and mild diffuse narrowing. No spondylolisth esis is evident. Vertebral body heights are preserved. No spinal canal stenosis is evident. No neural foraminal stenosis is evident. IMPRESSION: 1. No acute osseous abnormality cervical spine. 2. Degenerative disc changes C4-5
--- NOTE | 2024-04-05 21:59 | CT ---
EXAMINATION TYPE: CT ChestAbdPelvis wo con DATE OF EXAM: 04/05/2024 INDICATION: Brought by EMS for fall on coumadin, pt transfer from [facility]. States she tripped in bathroom while trying to go back to her bed. A&O baseline. c/o Pain- tailbone from broken tailbone ab out 1 yr prior, left shoulder pain- in history + right flank abrasion, no lumps/bumps on head. + ccol lar. COMPARISON: 11/04/2022 CT DLP: 1700.9 mGycm CONTRAST: Performed without Oral Contrast. No intravenous contrast. TECHNIQUE: Axial images at 5 mm thick sections. Reconstructed images in the coronal plane. Delayed images through the kidneys. FINDINGS: CT CHEST: Portion of the thyroid visualized is normal. No suspicious lung nodules or focal infiltrates are present. No pneumothorax evident. No enlarged mediastinal or hilar adenopathy is evident. The ascending aorta diameter at the level of the main pulmonary artery is 3.2 cm. The main pulmonary artery diameter at the bifurcation is 2.[address] ABDOMEN: Liver: Normal Spleen: Normal Pancreas: Normal Adrenal glands: The adrenal glands are normal. Gallbladder: Poorly visualized. This may be collapsed. Prior cholecystectomy be considered. Kidneys: No masses are evident. No hydronephrosis is present. No cysts are present. No renal stone s evident. Aorta: Vascular calcification is within the aorta. Inferior vena cava: Normal. CT PELVIS: Loops of bowel within the abdomen and pelvis are normal. Some fecal debris is seen in the colon. A large fecal bolus in the rectum. Appendix: Not identified. No dilated tubular structure or inflammatory change is evident. Urinary bladder: Normal. Genitourinary structures: Uterus and ovaries not identified. Osseous structures: No suspicious lytic or sclerotic lesions. No acute fractures identified. Ribs prerna ear intact. There is no compression of former study of T12 IMPRESSION: 1. No acute posttraumatic changes.
--- NOTE | 2024-04-05 22:43 | ED ---
Fall HPI - General Chief Complaint: Fall Stated Complaint: Fall Time Seen by Provider: 04/05/24 19:41 Source: patient, EMS Mode of arrival: EMS - History of Present Illness Initial Comments: Patient is an 83-year-old female past medical history Asthma, CHF, prior CVA, DVT on Coumadin here via EMS for fall on Coumadin. Patient resides at the region she and tripped and fell in the bathroom while going back to bed. Patient is alert and oriented x 4, reported to be at baseline endorses tailbone pain, had a prior broken tailbone 1 year ago, associated left shoulder pain, chronic left shoulder pain, patient did hit her head she did not lose consciousness and she remembers the entirety of the event. Patient denies chest pain, difficulty in breathing, abdominal pain, pain in her lower extremities, dizziness or headache. - Related Data Home Medications Medication Instructions Recorded Confirmed RX: Omeprazole [PriLOSEC] 20 mg PO DAILY@0600 01/11/19 11/04/22 RX: bisacodyL [Dulcolax] 5 mg PO DAILY@0900 PRN 02/19/19 11/04/22 RX: Carbidopa-Levodopa 25-100 mg 1 tab PO QID@05,09,,07/30/19 11/04/22 [Sinemet 25-100 mg] RX: Carbidopa/Levodopa [Sinemet CR 1 tab PO HS@209910/15/19 11/04/22 50-200 mg] RX: Melatonin [Melatonin ER] 10 mg PO HS@209910/15/19 11/04/22 RX: Mirabegron [Myrbetriq] 25 mg PO HS@209910/15/19 11/04/22 RX: Atorvastatin [Lipitor] 40 mg PO HS@209910/19/20 11/04/22 RX: Cholecalciferol [Vitamin D3 50 mcg PO DAILY@0900 10/19/20 11/04/22 (25 Mcg = 1000 Iu)] RX: Nitroglycerin Sl Tabs 0.4 mg SL Q5M PRN 10/19/20 11/04/22 [Nitrostat] RX: polyethylene glycoL 3350 17 gm PO BID@0900,209910/19/20 11/04/22 [Miralax] RX: Mag Hydrox/Aluminum Hyd/Simeth 10 ml PO Q8H PRN 11/24/20 11/04/22 [Mylanta Maximum Strength Liq] RX: Lactose-Reduced Food [Ensure 237 ml PO TID@0900,1300,2100 02/10/21 11/04/22 Plus] RX: Acetaminophen Tab [Tylenol] 650 mg PO Q4H PRN 10/27/21 11/04/22 RX: Loperamide [Imodium] 2 - 4 mg PO QID PRN MDD 16mg 10/27/21 11/04/22 RX: QUEtiapine FUMARATE [SEROquel] 25 mg PO BID@0900,2100 10/27/21 11/04/22 RX: Warfarin [Coumadin] 2 mg PO DAILY@1700 10/27/21 11/04/22 RX: Ascorbic Acid [Vitamin C] 500 mg PO DAILY@0900 11/04/22 11/04/22 RX: Zinc Gluconate [Zinc] 50 mg PO DAILY@0900 11/04/22 11/04/22 RX: lisinopriL [Zestril] 5 mg PO DAILY@0900 11/04/22 11/04/22 Previous Rx's Medication Instructions Recorded RX: Metoprolol Tartrate [Lopressor] 12.5 mg PO BID@0900,2100 #30 tab 01/28/22 RX: Lactulose 20 gm PO DAILY PRN #120 ml 11/06/22 RX: traMADol HCl [Ultram] 50 mg PO Q8H PRN #4 tab 11/06/22 Allergies Allergy/AdvReac Type Severity Reaction Status Date / Time Influenza Virus Vaccines Allergy Swelling Verified 06/08/23 23:39 Penicillins Allergy Anaphylaxis Verified 06/08/23 23:39 Iodinated Contrast Media AdvReac Chest Pain Verified 06/08/23 23:39 [Iodinated Contrast- Oral and IV Dye] Review of Systems ROS Statement: Those systems with pertinent positive or pertinent negative responses have been documented in the HPI. ROS Other: All systems not noted in ROS Statement are negative. Past Medical History Past Medical History: Asthma, Heart Failure, CVA/TIA, Deep Vein Thrombosis (DVT), GERD/Reflux, Hypertension, Memory Impairment, Musculoskeletal Disorder, Neurologic Disorder, Osteoarthritis (OA) Additional Past Medical History / Comment(s): Ulcerative colitis, diverticulitis, parkinson's disease, CVA which pt was unaware of having-showed on cat scan, several DVTs bilateral legs and pt states since she has had intermittent bilateral ankle edema, thrombophlebitis, PE-pt cannot recall laterallity, generalized arthritis, urinary leakage, UTIs, shingles x 2 History of Any Multi-Drug Resistant Organisms: ESBL Date of last positivie culture/infection: 07/09/21 ESBL-E.coli MDRO Source:: URINE ESBL Past Surgical History: Appendectomy, Cholecystectomy, Hysterectomy, Orthopedic Surgery, Tubal Ligation Additional Past Surgical History / Comment(s): L shoulder injury with surgery to repair, removals of DVTs bilateral legs, cataract removal/lens implants, colonoscopies, hemorrohoids surgery Past Anesthesia/Blood Transfusion Reactions: Postoperative Nausea & Vomiting (PONV) Additional Past Anesthesia/Blood Transfusion Reaction / Comment(s): Pt received blood with hysterectomy without reaction. Past Psychological History: Anxiety Smoking Status: Never smoker Past Alcohol Use History: None Reported Past Drug Use History: None Reported - Past Family History Father Family Medical History: Asthma, Cancer, COPD Additional Family Medical History / Comment(s): Gallbladder cancer Mother Family Medical History: Myocardial Infarction (NH) Additional Family Medical History / Comment(s): Mother of a NH at the age of 48 yrs. Sister(s) Family Medical History: Deep Vein Thrombosis (DVT) Additional Family Medical History / Comment(s): Sister of a blood clot at age 38 yrs-pt cannot recall specifics. General Exam - General Exam Comments Initial Comments: PE: CONSTITUTIONAL: No apparent distress, well appearing SKIN: Warm, dry, no jaundice, hives or petechiae, small abrasion to the right flank EYES: Pupils are equally round, extraocular movements intact without nystagmus, clear conjunctiva, non-icteric sclera HENT: Normocephalic, hematoma to the right parietal occiput with tenderness to palpation, moist mucus membranes, oropharynx clear without exudates, no signs of basilar skull fracture NECK: , C-collar placed on arrival, no midline tenderness to palpation PULMONARY: Clear to auscultation without wheezes, rhonchi, or rales, normal excursion, no accessory muscle use and no stridor CARDIOVASCULAR: Regular rate, rhythm, normal S1 and S2. No appreciated murmurs, rubs or gallops. Strong radial pulses with intact distal perfusion. No lower extremity edema GASTROINTESTINAL: Soft, left lower quadrant tenderness to palpation, non- distended, no palpable masses, no rebound or guarding. No hepatosplenomegaly MUSCULOSKELETAL: Extremities have no gross deformity, no edema, redness, or swelling. Left shoulder is tender palpation without deformity, swelling, patient is able to move her extremities through full range of motion, no midline spinal tenderness to palpation, paraspinal lumbar TTP no calf swelling, rectal tone intact, backside examined with VERONICA Lopez, as automobile designer NEUROLOGIC:_a/o x 3, GCS 15, normal mentation and speech. Moves all extremities x 4 without motor or sensory deficit PSYCHIATRIC:_normal mood and affect, thought process is clear and linear Limitations: physical limitation Course Vital Signs 04/05/24 04/05/24 04/05/24 20:00 20:36 21:36 Temperature 97.7 F Pulse Rate 69 64 60 Respiratory 16 16 16 Rate Blood Pressure 160/66 130/74 O2 Sat by Pulse 98 95 96 Oximetry 04/05/24 23:00 Temperature Pulse Rate 68 Respiratory 16 Rate Blood Pressure 152/62 O2 Sat by Pulse 94 L Oximetry Medical Decision Making - Medical Decision Making Was pt. sent in by a medical professional or institution (, PA, DISPATCH ASSOCIATE, urgent care, hospital, or jail...) When possible be specific @ -Patient sent in from the [facility] Did you speak to anyone other than the patient for history (EMS, parent, family, police, friend...)? What history was obtained from this source @ -No Did you review nursing and triage notes (agree or disagree)? Why? @ -I reviewed and agree with nursing and triage notes additionally I reviewed patient's medication list from the [facility] Were old charts reviewed (outside hosp., previous admission, EMS record, old EKG, old radiological studies, urgent care reports/EKG's, jail records)? Report findings @ -Chart from the [facility] reviewed, patient does take Coumadin, she arrives with report stating that she tripped and fell and did hit her head Differential Diagnosis (chest pain, altered mental status, abdominal pain women, abdominal pain men, vaginal bleeding, weakness, fever, dyspnea, syncope, headache, dizziness, GI bleed, back pain, seizure, CVA, palpatations, mental health, musculoskeletal)? @ -Parental diagnosis remains broad however top considerations include contusion, traumatic intracranial injury, sprain, dislocation, fracture... This is not meant to be in all inclusive list EKG interpreted by me (3pts min.). @ -As above X-rays interpreted by me (1pt min.). @ -None done CT interpreted by me (1pt min.). @ -CT brain showed no acute traumatic process I see no evidence of hemorrhage or midline shift, CT C-spine without fracture, CT chest abdomen pelvis showed no fracture, pulmonary contusions or evidence of blunt abdominal injury U/S interpreted by me (1pt. min.). @ -None done What testing was considered but not performed or refused? (CT, X-rays, U/S, labs)? Why? @I considered a CT chest and pelvis with contrast however patient has a documented iodinated contrast media allergy What meds were considered but not given or refused? Why? @ -None Did you discuss the management of the patient with other professionals (professionals i.e. , PA, DISPATCH ASSOCIATE, lab, RT, psych nurse, psychiatric social worker supervisor, manager technical support, teacher, morals squad police officer, manager of case management)? Give summary @ -No Was smoking cessation discussed for >3mins.? @ -No Was critical care preformed (if so, how long)? @ -No Were there social determinants of health that impacted care today? How? (Homelessness, low income, unemployed, alcoholism, drug addiction, transp ortation, low edu. Level, literacy, decrease access to med. care, half-way, rehab)? @ -No Was there de-escalation of care discussed even if they declined (Discuss DNR or withdrawal of care, Hospice)? @ -No What co-morbidities impacted this encounter? (DM, HTN, Smoking, COPD, CAD, Cancer, CVA, ARF, Chemo, Hep., AIDS, mental health diagnosis, sleep apnea, morbid obesity)? @ -DVT on Coumadin Was patient admitted / discharged? Hospital course, mention meds given and route, prescriptions, significant lab abnormalities, going to OR and other pertinent info. @ -Hospital course discharged-patient is a pleasant 83-year-old female presenting from the [facility] for mechanical trip and fall where she did hit her head, no LOC, reported to be behaving at baseline. Initial physical exam shows 83-year-old female in no acute distress. A small palpable hematoma to the right occiput, patient in c-collar with no midline spinal tenderness palpation, minimal left shoulder tenderness to palpation, patient does state that her pain there is chronic and there is no evidence of fracture, dislocation or swelling, additionally there is some paraspinal muscle tenderness in the lumbar region, abrasion to the right flank and minimal tenderness left lower quadrant of the abdomen with palpation, no masses, vital stable on arrival. Lower extremities are atraumatic, neurovascularly intact. Patient awake alert and behaving appropriately on exam. Will plan for CT brain, CT C-spine, and CT chest abdomen pelvis was ordered to evaluate for signs of blunt traumatic injury to chest and abdomen as well as spine given described back pain and LLQ abdominal pain. Basic labs were also ordered to assess for unexplained anemia that would indicate hemorrhage from injury from fall, PT/INR as well as CMP to assess kidney f unction Tylenol ordered for pain control. Labs and imaging reviewed. Grossly within normal limits. Abnormal values not concerning for acute pathology related to presenting complaint. After reviewing patient's imaging I updated patient to imaging findings and cleared their C- Spine. There is no midline cervical neck tenderness or step-offs. The patient denies any numbess, tingling, or weakness of the extremities when moving neck through full ROM. The patient is able to range their neck completely without midline cervical pain, numbness, tingling or weakness. Discussed with patient plan for discharge back to her facility. She is agreeable with plan of care. In my medical judgment there is currently no evidence of an immediate life- threatening or surgical condition. Discharge is therefore indicated at this time. Discharge treatment instructions, follow up instructions, and appropriate emergency department return precautions were discussed with the patient and/or medical decision maker. Patient and/or medical decision maker expressed understanding of and agreed with the treatment plan, follow up instructions, and emergency department return precaution. All patient's and/or medical decision maker's questions were answered. Undiagnosed new problem with uncertain prognosis? @ -No Drug Therapy requiring intensive monitoring for toxicity (Heparin, Nitro, Insulin, Cardizem)? @ -No Were any procedures done? @ -No Diagnosis/symptom? @ -Mechanical fall Acute, or Chronic, or Acute on Chronic? @ -Acute Uncomplicated (without systemic symptoms) or Complicated (systemic symptoms)? @ -Complicated Side effects of treatment? @ -No Exacerbation, Progression, or Severe Exacerbation? @ -No Poses a threat to life or bodily function? How? (Chest pain, [place], NH, pneumonia, PE, COPD, DKA, ARF, appy, cholecystitis, CVA, Diverticulitis, Homicidal, Suicidal, threat to staff... and all critical care pts) @ -Unlikely, especially once imaging clear of acute traumatic injury - Lab Data Result diagrams: 04/05/24 20:15 04/05/24 20:15 Lab Results 04/05/24 04/05/24 04/05/24 Range/Units 20:15 20:15 20:15 WBC 4.9 (3.8-10.6) k/uL RBC 3.89 (3.80-5.40) m/uL Hgb 12.5 (11.4-16.0) gm/dL Hct 36.4 (34.0-46.0) % MCV 93.5 (80.0-100.0) fL MCH 32.1 (25.0-35.0) pg MCHC 34.4 (31.0-37.0) g/dL RDW 12.4 (11.5-15.5) % Plt Count 199 (150-450) k/uL MPV 8.0 Neutrophils % 50 % Lymphocytes % 38 % Monocytes % 6 % Eosinophils % 3 % Basophils % 1 % Neutrophils # 2.5 (1.3-7.7) k/uL Lymphocytes # 1.9 (1.0-4.8) k/uL Monocytes # 0.3 (0-1.0) k/uL Eosinophils # 0.2 (0-0.7) k/uL Basophils # 0.0 (0-0.2) k/uL PT 24.7 H (10.0-12.5) sec INR 2.5 H (<1.2) APTT 28.7 (22.0-30.0) sec Sodium 139 (137-145) mmol/L Potassium 3.6 (3.5-5.1) mmol/L Chloride 106 (98-107) mmol/L Carbon Dioxide 29 (22-30) mmol/L Anion Gap 4 mmol/L BUN 18 H (7-17) mg/dL Creatinine 0.76 (0.52-1.04) mg/dL Est GFR (CKD-EPI)AfAm 84 (>60 ml/min/1.73 sqM) Est GFR (CKD-EPI)NonAf 73 (>60 ml/min/1.73 sqM) Glucose 128 H (74-99) mg/dL Calcium 8.6 (8.4-10.2) mg/dL Total Bilirubin 0.6 (0.2-1.3) mg/dL AST 23 (14-36) U/L ALT 7 (4-34) U/L Alkaline Phosphatase 50 (38-126) U/L Total Protein 6.0 L (6.3-8.2) g/dL Albumin 3.4 L (3.5-5.0) g/dL Disposition Clinical Impression: Fall Disposition: HOME SELF-CARE Condition: Good Instructions (If sedation given, give patient instructions): Fall Prevention for Older Adults (ED) Additional Instructions: Every disease is a spectrum and a small chance still exists that a serious condition could develop, for this reason, please monitor yourself closely for new, changing or worsening symptoms, confusion, changes in behavior, uncontrollable pain, severe headache, changes in vision, slurred speech, new numbness or weakness fever, inability to tolerate/keep down fluids or your medications, inability to follow up with outpatient providers as instructed and should you experience these symptoms or should you have any further concerns for your wellbeing please return to the ED or call 911 immediately. PLEASE call your primary care physician as soon as possible to arrange / discuss plan for followup appointment. Appointment in the next 1-3 days is strongly encouraged if possible. PLEASE let us know here before you leave if there is anything further we can do to be of any assistance. Take care and feel Better! Is patient prescribed a controlled substance at d/c from ED?: No Referrals: Jesus Cooney MD [Primary Care Provider] - 1-2 days Time of Disposition: 22:43
[2024-04-06 00:37] VITALS: BP 149/80; PULSE 67
== END 2024-04-06 00:37 | disposition home or self-care (01) ==
LOC: EC 19:37
CPT/HCPCS: 36415; 70450; 71250; 72125; 74176; 80053; 85025; 85610; 85730; 99284

== ENCOUNTER 2025-01-27 11:44 | Observation (INO) | payer MEDICARE, OTHER ==
[2025-01-27 12:12] LABS: Basophils # (A) 0.06 10*3/uL (0.00-0.10); Basophils % (A) 1.1 %; Eosinophils # (A) 0.16 10*3/uL (0.04-0.35); Eosinophils % (A) 2.9 %; HCT 36.3 % (37.2-46.3); HGB 12.1 g/dL (12.0-15.0); Lymphocytes # (A) 1.82 10*3/uL (0.90-5.00); Lymphocytes % (A) 32.9 %; MCH 31.7 pg (27.0-32.0); MCHC 33.3 g/dL (32.0-37.0); Mean Platelet Volume 10.5 fL (9.5-12.2); Monocytes # (A) 0.46 10*3/uL (0.20-1.00); Monocytes % (A) 8.3 %; Neutrophils # (A) 3.03 10*3/uL (1.80-7.70); Neutrophils % (A) 54.6 %; Platelet Count 188 10*3/uL (140-440); RBC 3.82 10*6/uL (4.10-5.20); RDW 12.8 % (11.5-14.5); WBC 5.54 10*3/uL (4.50-10.00)
[2025-01-27 12:28] LABS: ALT 6 U/L (4-34); AST 32 U/L (14-36); African American GFR (CKD) 64 (>60 ml/min/1.73 sqM); Albumin 3.7 g/dL (3.5-5.0); Alkaline Phosphatase 57 U/L (38-126); Anion Gap 7 mmol/L; Blood Urea Nitrogen 29 mg/dL (7-17); Calcium 8.9 mg/dL (8.4-10.2); Carbon Dioxide 30 mmol/L (22-30); Chloride 104 mmol/L (98-107); Glucose 109 mg/dL (74-99); Magnesium 2.5 mg/dL (1.6-2.3); Non-African American GFR(CKD) 56 (>60 ml/min/1.73 sqM); Potassium 4.1 mmol/L (3.5-5.1); Sodium 141 mmol/L (137-145); Total Bilirubin 0.5 mg/dL (0.2-1.3); Total Protein 6.1 g/dL (6.3-8.2)
--- NOTE | 2025-01-27 12:31 | ED ---
Chest Pain HPI - General Source: patient, EMS, RN notes reviewed Mode of arrival: EMS Limitations: physical limitation <Rosa Garzana - Last Filed: 01/27/25 12:30> <Isabel Rubio - Last Filed: 01/31/25 13:05> - General Chief Complaint: Chest Pain Stated Complaint: Chest pain Time Seen by Provider: 01/27/25 12:30 - History of Present Illness Initial Comments: Quick [id number] female presenting for chest pain x 2.5 hours. States chest pain began at 10 AM and is described as a substernal pain that radiates down the left arm. Sent from [facility] via EMS (Natalie Garza) Patient is an 84-year-old female presenting today for left-sided chest pain that began this morning around 10 AM. It is described as sharp and pressure-like substernal radiating down the left arm. Patient states the pain is improving, she received 81 mg of aspirin and 3 sublingual nitroglycerin prior to arrival. Does a history of prior PA. Dors is associated shortness of breath. Denies nausea, diaphoresis, hemoptysis. Endorses cough. Endorses lower extremity swelling. (Isabel Rubio) - Related Data Home Medications Medication Instructions Recorded Confirmed Carbidopa-Levodopa 25-100 mg 1 tab PO QID@05,,,17 07/30/19 01/27/25 [Sinemet 25-100 mg] Carbidopa/Levodopa [Sinemet CR 1 tab PO HS@2100 10/15/19 01/27/25 50-200 mg] Atorvastatin [Lipitor] 40 mg PO HS 10/19/20 01/27/25 Cholecalciferol [Vitamin D3 (25 50 mcg PO DAILY 10/19/20 01/27/25 Mcg = 1000 Iu)] Nitroglycerin Sl Tabs [Nitrostat] 0.4 mg SL Q5M PRN 10/19/20 01/27/25 Acetaminophen Tab [Tylenol] 650 mg PO Q4H PRN 10/27/21 01/27/25 Warfarin [Coumadin] 2 mg PO SUTUWEFRSA 10/27/21 01/27/25 lisinopriL [Zestril] 5 mg PO DAILY 11/04/22 01/27/25 Lactulose 20 gm PO BID 01/27/25 01/27/25 Metoprolol Tartrate [Lopressor] 12.5 mg PO BID 01/27/25 01/27/25 Mirtazapine [Remeron] 30 mg PO HS 01/27/25 01/27/25 Mylanta Double Strength 10 ml PO Q4H PRN 01/27/25 01/27/25 [id number] Omeprazole 20 mg PO DAILY 01/27/25 01/27/25 Ondansetron [Zofran] 4 mg PO Q8HR PRN 01/27/25 01/27/25 Salonpas Pain Relieving 1 patch TRANSDERM HS 01/27/25 01/27/25 Patch(Menthol-Methyl Salicylate(Liniments)) Sennosides 8.6 mg PO Q12H 01/27/25 01/27/25 Solifenacin Succinate [Vesicare] 5 mg PO DAILY 01/27/25 01/27/25 Warfarin [Coumadin] 1 mg PO MOTH 01/27/25 01/27/25 Previous Rx's Medication Instructions Recorded Lactulose 20 gm PO DAILY PRN #120 ml 11/06/22 Lidocaine 4% Patch 1 patch TOPICAL DAILY 7 Days #7 01/28/25 patch traMADol HCl [Ultram] 50 mg PO Q6H PRN #4 tab 01/28/25 Allergies Allergy/AdvReac Type Severity Reaction Status Date / Time Influenza Virus Vaccines Allergy Swelling Verified 01/27/25 17:23 Penicillins Allergy Anaphylaxis Verified 01/27/25 17:23 Iodinated Contrast Media AdvReac Chest Pain Verified 01/27/25 17:23 [Iodinated Contrast- Oral and IV Dye] Review of Systems ROS Other: All systems not noted in ROS Statement are negative. <Natalie Garza - Last Filed: 01/27/25 12:30> ROS Other: All systems not noted in ROS Statement are negative. <Isabel Rubio - Last Filed: 01/31/25 13:05> ROS Statement: Those systems with pertinent positive or pertinent negative responses have been documented in the HPI. EKG Findings - EKG Comments: EKG Findings:: Sinus rhythm, rate 65 bpm, intervals within acceptable limits, normal axis, no significant ST elevations or depressions, small Q-wave lead V1 V2 <Isabel Rubio - Last Filed: 06/30/25 13:05> Past Medical History Past Medical History: Asthma, Heart Failure, CVA/TIA, Deep Vein Thrombosis (DVT), GERD/Reflux, Hypertension, Memory Impairment, Myocardial Infarction (PA), Musculoskeletal Disorder, Neurologic Disorder, Osteoarthritis (OA), Pulmonary Embolus (PE) Additional Past Medical History / Comment(s): Ulcerative colitis, diverticulitis, parkinson's disease, CVA which pt was unaware of having-showed on cat scan, several DVTs bilateral legs and pt states since she has had intermittent bilateral ankle edema, thrombophlebitis, PE-pt cannot recall laterallity, generalized arthritis, urinary leakage, UTIs, shingles x 2 History of Any Multi-Drug Resistant Organisms: ESBL Date of last positivie culture/infection: 07/09/21 ESBL-E.coli MDRO Source:: URINE ESBL Past Surgical History: Appendectomy, Cholecystectomy, Hysterectomy, Orthopedic Surgery, Tubal Ligation Additional Past Surgical History / Comment(s): L shoulder injury with surgery to repair, removals of DVTs bilateral legs, cataract removal/lens implants, colonoscopies, hemorrohoids surgery Past Anesthesia/Blood Transfusion Reactions: Postoperative Nausea & Vomiting (PONV) Additional Past Anesthesia/Blood Transfusion Reaction / Comment(s): Pt received blood with hysterectomy without reaction. Past Psychological History: Anxiety Smoking Status: Never smoker Past Alcohol Use History: None Reported Past Drug Use History: None Reported - Past Family History Father Family Medical History: Asthma, Cancer, COPD Additional Family Medical History / Comment(s): Gallbladder cancer Mother Family Medical History: Myocardial Infarction (PA) Additional Family Medical History / Comment(s): Mother of a PA at the age of 48 yrs. Sister(s) Family Medical History: Deep Vein Thrombosis (DVT) Additional Family Medical History / Comment(s): Sister of a blood clot at age 38 yrs-pt cannot recall specifics. <Natalie Garza - Last Filed: 01/27/25 12:30> General Exam Limitations: physical limitation <Natalie Garza - Last Filed: 01/27/25 12:30> <Isabel Rubio - Last Filed: 01/31/25 13:05> - General Exam Comments Initial Comments: Visual Physical Exam Vital signs reviewed General: Well-appearing, nontoxic, no acute distress. Head: Normocephalic, atraumatic Eyes: PERRLA, EOMI ENT: Airway patent Chest: Nonlabored breathing Skin: No visual rash, normal skin tone Neuro: Alert and oriented 3 Musculoskeletal: No gross abnormalities (Natalie Garza) PE: CONSTITUTIONAL: [no apparent distress, chronically ill-appearing, nontoxic SKIN: Warm, dry, no jaundice, hives or petechiae EYES: Pupils are equally round, extraocular movements intact without nystagmus, clear conjunctiva, non-icteric sclera HENT: Normocephalic, atraumatic, moist mucus membranes, oropharynx clear without exudates NECK: , Full range of motion, normal appearance PULMONARY: Clear to auscultation without wheezes, rhonchi, or rales, normal excursion, no accessory muscle use and no stridor CARDIOVASCULAR: Regular rate, rhythm, normal S1 and S2. No appreciated murmurs, rubs or gallops. Strong radial pulses with intact distal perfusion. Bilateral 2-3+ nonpitting lower extremity edema GASTROINTESTINAL: Soft, active bowel sounds throughout, non-tender, non- distended, no palpable masses, no rebound or guarding. No hepatosplenomegaly MUSCULOSKELETAL: Extremities have no gross deformity, redness, or swelling. NEUROLOGIC:_a/o x 3, GCS 15, normal mentation and speech. Moves all extremities x 4 without motor or sensory deficit PSYCHIATRIC:_normal mood and affect, thought process is clear and linear (Isabel Rubio) Course Vital Signs 01/27/25 01/27/25 01/27/25 11:51 16:47 18:09 Temperature 97.8 F Pulse Rate 76 64 56 L Respiratory 18 17 17 Rate Blood Pressure 158/78 187/90 141/58 O2 Sat by Pulse 95 96 97 Oximetry 01/27/25 01/27/25 01/27/25 20:05 21:14 22:00 Temperature Pulse Rate 64 68 74 Respiratory 16 18 18 Rate Blood Pressure 167/72 193/84 175/81 O2 Sat by Pulse 97 97 98 Oximetry Chest Pain MDM <Natalie Garza - Last Filed: 01/27/25 12:30> <Isabel Rubio - Last Filed: 01/31/25 13:05> - MDM I completed the quick note portion of this chart signed Natalie Garza PA-C (Natalie Garza) Was pt. sent in by a medical professional or institution (Dr., PA, MACHINE TRIMMER, urgent care, hospital, or care home...) When possible be specific @ -Sent in by the [facility] Did you speak to anyone other than the patient for history (EMS, parent, family, police, friend...)? What history was obtained from this source @ -No Did you review nursing and triage notes (agree or disagree)? Why? @ -I reviewed nursing and triage notes-agree patient has had left-sided chest pressure since this morning Were old charts reviewed (outside hosp., previous admission, EMS record, old EKG, old radiological studies, urgent care reports/EKG's, care home records)? Report findings @ -Medical records reviewed-Patient to CT specimen pelvis performed on 04/05/2024 after a fall on Coumadin showed no acute process Differential Diagnosis (chest pain, altered mental status, abdominal pain women, abdominal pain men, vaginal bleeding, weakness, fever, dyspnea, syncope, headache, dizziness, GI bleed, back pain, seizure, CVA, palpatations, mental health, musculoskeletal)? @Differential Chest Pain: Stable Angina, Unstable Angina, STEMI, NSTEMI Aortic Dissection, pericarditis, pleurisy, chostochondirits, Pneumothorax, Musculoskeletal, Esophageal Spasm GERD, Cholecystitis, Pancreatitis, Zoster, this is not meant to be an all- inclusive list. EKG interpreted by me (3pts min.). @ -As above X-rays interpreted by me (1pt min.). @Personally reviewed chest x-ray I see no cardiomegaly, consolidations or pleural effusions CT interpreted by me (1pt min.). @ -None done U/S interpreted by me (1pt. min.). @ -None done What testing was considered but not performed or refused? (CT, X-rays, U/S, labs)? Why? @ -None What meds were considered but not given or refused? Why? @ -None Did you discuss the management of the patient with other professionals (professionals i.e. RENAY Huddleston, MACHINE TRIMMER, lab, RT, psych nurse, licensed clinical social worker, quality control assessor, teacher, industrial relations officer, case managers)? Give summary @ -No Was smoking cessation discussed for >3mins.? @ -No Was critical care preformed (if so, how long)? @ -No Were there social determinants of health that impacted care today? How? (Homelessness, low income, unemployed, alcoholism, drug addiction, transp ortation, low edu. Level, literacy, decrease access to med. care, custodial, rehab)? @ -No Was there de-escalation of care discussed even if they declined (Discuss DNR or withdrawal of care, Hospice)? @ -No What co-morbidities impacted this encounter? (DM, HTN, Smoking, COPD, CAD, Cancer, CVA, ARF, Chemo, Hep., AIDS, mental health diagnosis, sleep apnea, morbid obesity)? @PA, PE on Coumadin Was patient admitted / discharged? Hospital course, mention meds given and route, prescriptions, significant lab abnormalities, going to OR and other pertinent info. @Admission- patient is an 84-year-old female past medical history as noted above presenting today for 1 day of left-sided chest pain. Patient was initially seen and assessed as part of triage protocol by JUANCHO. Who ordered basic labs. On my assessment patient is resting comfortably in no acute distress. She is oriented x 3 though very soft-spoken, making history gathering difficult. Endorses left-sided chest pressure right 7 out of 10. Ordered additional aspirin, subungual nitroglycerin and morphine. EKG does not show signs of STEMI, troponin is not elevated I anticipate admission for chest pain observation. On reassessment patient is sleeping comfortably. Discussed case with JOEY Sanford who kindly accepted patient for admission. Undiagnosed new problem with uncertain prognosis? @ -No Drug Therapy requiring intensive monitoring for toxicity (Heparin, Nitro, Insulin, Cardizem)? @ -No Were any procedures done? @ -No Diagnosis/symptom? @ -Chest pain Acute, or Chronic, or Acute on Chronic? @Acute Uncomplicated (without systemic symptoms) or Complicated (systemic symptoms)? @Complicated Side effects of treatment? @ -No Exacerbation, Progression, or Severe Exacerbation? @ -No Poses a threat to life or bodily function? How? (Chest pain, USA, PA, pneumonia, PE, COPD, DKA, ARF, appy, cholecystitis, CVA, Diverticulitis, Homicidal, Suicidal, threat to staff... and all critical care pts) @Potentially (Isabel Rubio) Disposition <Natalie Garza - Last Filed: 01/27/25 12:30> <Frisian,Isabel - Last Filed: 01/31/25 13:05> Clinical Impression: Chest pain Disposition: ADMITTED IP TO THIS HOSP Condition: Stable
[2025-01-27 12:39] LABS: Partial Thromboplastin Time 26.3 sec (22.0-30.0); Prothrombin Time 20.4 sec (10.0-12.5)
--- NOTE | 2025-01-27 13:05 | XR ---
EXAMINATION TYPE: XR chest 2V DATE OF EXAM: 01/27/2025 12:22 PM COMPARISON: 06/09/2023 CLINICAL INDICATION: Female, 84 years old with history of Chest Pain, TECHNIQUE: XR chest 2V view(s) obtained. FINDINGS: The heart size is normal. The pulmonary vasculature is normal. The lungs are clear. IMPRESSION: 1. No acute pulmonary process. [facility], , 01/27/2025 1:02 PM
[2025-01-27] MEDS ORDERED: NITROGLYCERIN SL TABS 0.4 MG TAB SUBLINGUAL PRN (16:21)
[2025-01-27] MEDS: ASPIRIN 81 MG PO STA (16:34)
[2025-01-27] MEDS: ONDANSETRON 4 MG/2 ML VIAL IVP STA (16:35)
[2025-01-27] MEDS: MORPHINE SULFATE 2 MG/ML SYRINGE IVP STA (16:41)
[2025-01-27] MEDS ORDERED: ACETAMINOPHEN TAB 325 MG TAB PO PRN (17:20)
[2025-01-27] MEDS ORDERED: ALPRAZolam 0.25 MG TAB PO PRN (17:20)
[2025-01-27] MEDS ORDERED: MORPHINE SULFATE 4 MG/ML SYRINGE IV PRN (17:20)
[2025-01-27] MEDS ORDERED: NALOXONE 0.4 MG/ML 1 ML VIAL IV PRN (17:20)
[2025-01-27] MEDS ORDERED: ONDANSETRON 4 MG/2 ML VIAL IVP PRN (17:20)
[2025-01-27] MEDS ORDERED: LACTULOSE 20 GM/30 ML CUP PO PRN (19:45)
[2025-01-27] MEDS ORDERED: traMADol 50 MG TAB PO PRN (19:45)
[2025-01-27] MEDS ORDERED: ONDANSETRON ODT 4 MG TAB PO PRN (19:45)
[2025-01-27] MEDS ORDERED: MAG HYDROX/AL HYDROX/SIMETH 30 ML CUP PO PRN (19:45)
[2025-01-27] MEDS: HYDROmorphone 0.5 MG/0.5 ML SYRINGE IVP PRN (21:19)
[2025-01-27] MEDS: METOPROLOL TARTRATE 25 MG TAB PO SCH (21:20)
[2025-01-27] MEDS: ATORVASTATIN 40 MG TAB PO SCH (21:20)
[2025-01-27] MEDS: FAMOTIDINE 20 MG TAB PO SCH (21:20)
[2025-01-27] MEDS: WARFARIN 2 MG TAB PO ONE (21:21)
[2025-01-27] MEDS: CARBIDOPA-LEVODOPA ER 50-200MG 1 EACH TABLET.ER PO SCH (21:22)
[2025-01-27] MEDS: MIRTAZAPINE 15 MG TAB PO SCH (21:22)
[2025-01-27] MEDS: SENNOSIDES 8.6 MG TAB PO SCH (22:07)
[2025-01-27] MEDS: WARFARIN 1 MG TAB PO SCH (22:09)
[2025-01-28] MEDS: NITROGLYCERIN SL TABS 0.4 MG TAB SUBLINGUAL PRN (00:17)
[2025-01-28] MEDS: LACTULOSE 20 GM/30 ML CUP PO SCH (02:32)
[2025-01-28] MEDS: CARBIDOPA-LEVODOPA 25-100 MG 1 EACH TAB PO SCH (05:46)
[2025-01-28 07:56] LABS: INR 2.5 (<1.2); Prothrombin Time 24.7 sec (10.0-12.5)
[2025-01-28] MEDS: CHOLECALCIFEROL 25 MCG (1000 IU) TABLET PO SCH (08:55)
[2025-01-28] MEDS: lisinopriL 5 MG TAB PO SCH (08:55)
[2025-01-28 08:57] VITALS: RESP 16
--- NOTE | 2025-01-28 11:30 | P.CRDCN ---
History of Present Illness Consult date: 01/28/25 History of present illness: HISTORY OF PRESENTING ILLNESS: Known to Dr. Wong 84-year-old female with past medical history of dementia, presents to the hospital because of complaint of left-sided substernal chest pressure. At the time of evaluation this pain is reproducible on palpation. She is confirmed with the patient's daughter over phone. Feels that her chest pain could be related to anxiety as she often gets anxious and does report having chest heaviness. Her labs were nonrevealing with troponin negative, NT-proBNP 570, Her EKG shows sinus rhythm with no significant ST-T wave changes that are concerning for ischemia at rest Chest x-ray does not show any signs of pulmonary congestion She did have a heart catheterization in 2020 which was did not show any significant obstructive coronary artery disease REVIEW OF SYSTEMS: 14 point review of system is negative except what is mentioned above in HPI. PHYSICAL EXAMINATION: Neck: Brisk carotid upstroke, no jugular venous distention. Lungs: Clear to auscultation. Heart: Regular rate and rhythm, S1-S2, , no murmur or rub. Some pain on palpation on left side of the chest Abdomen: Soft nontender, positive bowel sounds. Extremities: No edema, intact distal pulses. Neuro: Awake but slightly confused, no focal deficits. Detailed neuro exam was not performed. ASSESSMENT: # Atypical chest pain, rule out of ACS # Chest pain reproducible with palpation on left side, likely musculoskeletal # History of DVT on warfarin therapy long-term, therapeutic INR, no signs of bleeding # Dementia # Debility and frailty PLAN: ACS has been ruled out. Patient is stable from cardiovascular standpoint Recommend outpatient follow-up with Dr. Wong Lidocaine patch Continue her home Lipitor 40, metoprolol 12.5 twice daily, Lisinopril 5 mg daily I have updated the patient's daughter over phone regarding the plan and the assessment Continue home dose warfarin Juarze Modi MD, FACC, RPVI Thank you for allowing [facility] to participate in this patient's care. Feel free to reach out in case of any followup questions. Past Medical History Past Medical History: Asthma, Heart Failure, CVA/TIA, Deep Vein Thrombosis (DVT), GERD/Reflux, Hypertension, Memory Impairment, Myocardial Infarction (RI), Musculoskeletal Disorder, Neurologic Disorder, Osteoarthritis (OA), Pulmonary Embolus (PE) Additional Past Medical History / Comment(s): Ulcerative colitis, diverticulitis, parkinson's disease, CVA which pt was unaware of having-showed on cat scan, several DVTs bilateral legs and pt states since she has had intermittent bilateral ankle edema, thrombophlebitis, PE-pt cannot recall laterallity, generalized arthritis, urinary leakage, UTIs, shingles x 2 Last Myocardial Infarction Date:: unknown History of Any Multi-Drug Resistant Organisms: ESBL Date of last positivie culture/infection: 07/09/21 ESBL-E.coli MDRO Source:: URINE ESBL Past Surgical History: Appendectomy, Cholecystectomy, Hysterectomy, Orthopedic Surgery, Tubal Ligation Additional Past Surgical History / Comment(s): L shoulder injury with surgery to repair, removals of DVTs bilateral legs, cataract removal/lens implants, colonoscopies, hemorrohoids surgery Past Anesthesia/Blood Transfusion Reactions: Postoperative Nausea & Vomiting (PONV) Additional Past Anesthesia/Blood Transfusion Reaction / Comment(s): Pt received blood with hysterectomy without reaction. Past Psychological History: Anxiety Additional Psychological History / Comment(s): Pt resides at [facility]. Staff get her up into wheelchair. Smoking Status: Never smoker Past Alcohol Use History: None Reported Past Drug Use History: None Reported - Past Family History Father Family Medical History: Asthma, Cancer, COPD Additional Family Medical History / Comment(s): Gallbladder cancer Mother Family Medical History: Myocardial Infarction (RI) Additional Family Medical History / Comment(s): Mother of a RI at the age of 48 yrs. Sister(s) Family Medical History: Deep Vein Thrombosis (DVT) Additional Family Medical History / Comment(s): Sister of a blood clot at age 38 yrs-pt cannot recall specifics. Medications and Allergies Home Medications Medication Instructions Recorded Confirmed Type Carbidopa-Levodopa 25-100 mg 1 tab PO QID@05,,,07/30/19 01/27/25 History [Sinemet 25-100 mg] Carbidopa/Levodopa [Sinemet CR 1 tab PO HS@2100 10/15/19 01/27/25 History 50-200 mg] Atorvastatin [Lipitor] 40 mg PO HS 10/19/20 01/27/25 History Cholecalciferol [Vitamin D3 (25 50 mcg PO DAILY 10/19/20 01/27/25 History Mcg = 1000 Iu)] Nitroglycerin Sl Tabs [Nitrostat] 0.4 mg SL Q5M PRN 10/19/20 01/27/25 History Acetaminophen Tab [Tylenol] 650 mg PO Q4H PRN 10/27/21 01/27/25 History Warfarin [Coumadin] 2 mg PO SUTUWEFRSA 10/27/21 01/27/25 History lisinopriL [Zestril] 5 mg PO DAILY 11/04/22 01/27/25 History Lactulose 20 gm PO DAILY PRN #120 ml 11/06/22 01/27/25 Rx Lactulose 20 gm PO BID 01/27/25 01/27/25 History Metoprolol Tartrate [Lopressor] 12.5 mg PO BID 01/27/25 01/27/25 History Mirtazapine [Remeron] 30 mg PO HS 01/27/25 01/27/25 History Mylanta Double Strength 10 ml PO Q4H PRN 01/27/25 01/27/25 History [id number] Omeprazole 20 mg PO DAILY 01/27/25 01/27/25 History Ondansetron [Zofran] 4 mg PO Q8HR PRN 01/27/25 01/27/25 History Salonpas Pain Relieving 1 patch TRANSDERM HS 01/27/25 01/27/25 History Patch(Menthol-Methyl Salicylate(Liniments)) Sennosides 8.6 mg PO Q12H 01/27/25 01/27/25 History Solifenacin Succinate [Vesicare] 5 mg PO DAILY 01/27/25 01/27/25 History Warfarin [Coumadin] 1 mg PO MOTH 01/27/25 01/27/25 History traMADol HCl [Ultram] 50 mg PO Q6H PRN 01/27/25 01/27/25 History Allergies Allergy/AdvReac Type Severity Reaction Status Date / Time Influenza Virus Vaccines Allergy Swelling Verified 01/27/25 17:23 Penicillins Allergy Anaphylaxis Verified 01/27/25 17:23 Iodinated Contrast Media AdvReac Chest Pain Verified 01/27/25 17:23 [Iodinated Contrast- Oral and IV Dye] Physical Exam Vitals: Vital Signs Temp Pulse Pulse Resp BP BP Pulse Ox 01/28/25 07:00 97.6 F 58 L 16 116/58 97 01/28/25 00:28 97.4 F L 66 18 176/71 96 01/27/25 22:00 74 18 175/81 98 01/27/25 21:14 68 18 193/84 97 01/27/25 20:05 64 16 167/72 97 01/27/25 18:09 56 L 17 141/58 97 01/27/25 16:47 64 17 187/90 96 01/27/25 11:51 97.8 F 76 18 158/78 95 Intake and Output 01/27/25 01/28/25 01/28/25 22:59 06:59 14:59 Other: Voiding Method Toilet # Voids 1 2 Weight 56.699 kg Results 01/27/25 11:59 01/27/25 11:59 Cardiac Enzymes 01/27/25 01/27/25 01/27/25 Range/Units 11:59 11:59 16:51 AST 32 (14-36) U/L Troponin I <0.012 0.014 (0.000-0.034) ng/mL 01/27/25 Range/Units 20:23 AST (14-36) U/L Troponin I <0.012 (0.000-0.034) ng/mL Coagulation 01/27/25 01/28/25 Range/Units 11:59 07:31 PT 20.4 H 24.7 H (10.0-12.5) sec APTT 26.3 (22.0-30.0) sec CBC 01/27/25 Range/Units 11:59 WBC 5.54 (4.50-10.00) 10*3/uL RBC 3.82 L (4.10-5.20) 10*6/uL Hgb 12.1 (12.0-15.0) g/dL Hct 36.3 L (37.2-46.3) % Plt Count 188 (140-440) 10*3/uL Comprehensive Metabolic Panel 01/27/25 Range/Units 11:59 Sodium 141 (137-145) mmol/L Potassium 4.1 (3.5-5.1) mmol/L Chloride 104 (98-107) mmol/L Carbon Dioxide 30 (22-30) mmol/L BUN 29 H (7-17) mg/dL Creatinine 0.95 (0.52-1.04) mg/dL Glucose 109 H (74-99) mg/dL Calcium 8.9 (8.4-10.2) mg/dL AST 32 (14-36) U/L ALT 6 (4-34) U/L Alkaline Phosphatase 57 (38-126) U/L Total Protein 6.1 L (6.3-8.2) g/dL Albumin 3.7 (3.5-5.0) g/dL Current Medications Generic Name Dose Route Start Last Admin Trade Name Freq PRN Reason Stop Dose Admin Acetaminophen 650 mg 01/27/25 17:20 Acetaminophen Tab 325 Mg Tab PO Q6HR PRN Mild Pain or Fever > 100.5 Al Hydroxide/Mg Hydroxide 10 ml 01/27/25 19:45 Mag Hydrox/Al Hydrox/Simeth 30 Ml Cup PO Q4H PRN Indigestion/heartburn/gas/ Alprazolam 0.25 mg 01/27/25 17:20 Alprazolam 0.25 Mg Tab PO Q6HR PRN Anxiety Atorvastatin Calcium 40 mg 01/27/25 21:00 01/27/25 21:20 Atorvastatin 40 Mg Tab PO 40 mg HS JOSETTE Administration Carbidopa/Levodopa 1 each 01/28/25 05:00 01/28/25 08:54 Carbidopa-Levodopa 25-100 Mg 1 Each Tab PO 1 each QID@05,09,13,17 JOSETTE Administration Carbidopa/Levodopa 1 each 01/27/25 21:00 01/27/25 21:22 Carbidopa-Levodopa Er 50-200mg 1 Each Tablet.Er PO 1 each HS@2100 JOSETTE Administration Cholecalciferol 50 mcg 01/28/25 09:00 01/28/25 08:55 Cholecalciferol 25 Mcg (1000 Iu) Tablet PO 50 mcg DAILY JOSETTE Administration Famotidine 20 mg 01/27/25 21:00 01/28/25 08:55 Famotidine 20 Mg Tab PO 20 mg BID JOSETTE Administration Lactulose 20 gm 01/27/25 21:00 01/28/25 08:55 Lactulose 20 Gm/30 Ml Cup PO 20 gm BID JOSETTE Administration Lactulose 20 gm 01/27/25 19:45 Lactulose 20 Gm/30 Ml Cup PO DAILY PRN Constipation Lisinopril 5 mg 01/28/25 09:00 01/28/25 08:55 Lisinopril 5 Mg Tab PO 5 mg DAILY JOSETTE Administration Metoprolol Tartrate 12.5 mg 01/27/25 21:00 01/28/25 08:55 Metoprolol Tartrate 25 Mg Tab PO 12.5 mg BID JOSETTE Administration Mirtazapine 30 mg 01/27/25 21:00 01/27/25 21:22 Mirtazapine 15 Mg Tab PO 30 mg HS JOSETTE Administration Miscellaneous Information 0 each 01/27/25 19:56 Warfarin Per Pharmacy MISCELLANE DIRECTED PRN INR Morphine Sulfate 4 mg 01/27/25 17:20 Morphine Sulfate 4 Mg/Ml Syringe IV Q4HR PRN Severe Pain (Scale 7 to 10) Naloxone HCl 0.2 mg 01/27/25 17:20 Naloxone 0.4 Mg/Ml 1 Ml Vial IV Q2M PRN Opioid Reversal Nitroglycerin 0.4 mg 01/27/25 16:21 Nitroglycerin Sl Tabs 0.4 Mg Tab SUBLINGUAL Q10M PRN Chest Pain Nitroglycerin 0.4 mg 01/27/25 19:45 01/28/25 00:17 Nitroglycerin Sl Tabs 0.4 Mg Tab SUBLINGUAL 0.4 mg Q5M PRN Administration Chest Pain Ondansetron HCl 4 mg 01/27/25 17:20 Ondansetron 4 Mg/2 Ml Vial IVP Q8HR PRN Nausea And Vomiting Ondansetron HCl 4 mg 01/27/25 19:45 Ondansetron Odt 4 Mg Tab PO Q8HR PRN Nausea And Vomiting Senna 8.6 mg 01/27/25 19:45 01/28/25 08:55 Sennosides 8.6 Mg Tab PO 8.6 mg Q12H JOSETTE Administration Tramadol HCl 50 mg 01/27/25 19:45 Tramadol 50 Mg Tab PO Q6H PRN Pain Warfarin Sodium 1 mg 01/28/25 18:00 Warfarin 1 Mg Tab PO 01/28/25 18:01 ONCE@1800 ONE Intake and Output 01/27/25 01/28/25 01/28/25 22:59 06:59 14:59 Other: Voiding Method Toilet # Voids 1 2 Weight 56.699 kg 01/27/25 11:59 01/27/25 11:59
--- NOTE | 2025-01-28 14:51 | P.HPIM ---
History of Present Illness H&P Date: 01/28/25 History of present illness; patient 84-year-old lady with past medical history significant for hyperlipidemia, parkinsonism, DVT presented the ER because of chest pain. Patient was all right when 3 hours prior to arrival she started having chest pain that was central location, pressure-like, sharp at times, radiating to the left arm, no aggravating or relieving factors associated with this chest pain.There was no complaint of orthopnea or PND. There was no complaint of shortness of breath at that time. There was no episode of diaphoresis during this episode of chest pain. Patient became concerned, patient received aspirin and sublingual nitro did help with the pain. Patient denies any palpitation. Denies any nausea, vomiting abdominal pain. Patient denies any complaint of dizziness. There is no complaint of headache. Because of the symptoms, patient came to the ER Initial lab work done in the ER showed WBC 5.54, hemoglobin 12.1, platelet count 188, sodium 141, potassium 4.1, BUN 29, creatinine 0.95, glucose 109, magnesium 2.5, troponin 0.012 EKG done in the ER showed heart rate of 65, no ST segment elevation or depression seen, no T-wave inversions seen. Chest x-ray done in the ER showed no acute pulmonary process Patient admitted to internal medicine service REVIEW OF SYSTEMS: CONSTITUTIONAL: No fever, no malaise, no fatigue. HEENT: No recent visual problems or hearing problems. Denied any sore throat. CARDIOVASCULAR: As mentioned above PULMONARY: As mentioned above GASTROINTESTINAL: No diarrhea, no nausea, no vomiting, no abdominal pain. NEUROLOGICAL: No headaches, no weakness, no numbness. HEMATOLOGICAL: Denies any bleeding or petechiae. GENITOURINARY: Denies any burning micturition, frequency, or urgency. MUSCULOSKELETAL/RHEUMATOLOGICAL: Denies any joint pain, swelling, or any muscle pain. ENDOCRINE: Denies any polyuria or polydipsia. The rest of the 14-point review of systems is negative. PHYSICAL EXAMINATION: GENERAL: The patient is alert and oriented x3, not in any acute distress. Well developed, well nourished. HEENT: Pupils are round and equally reacting to light. EOMI. No scleral icterus. No conjunctival pallor. Normocephalic, atraumatic. No pharyngeal erythema. No thyromegaly. CARDIOVASCULAR: S1 and S2 present. No murmurs, rubs, or gallops. PULMONARY: Chest is clear to auscultation, no wheezing or crackles. ABDOMEN: Soft, nontender, nondistended, normoactive bowel sounds. No palpable organomegaly. MUSCULOSKELETAL: No joint swelling or deformity. EXTREMITIES: No cyanosis, clubbing, or pedal edema. NEUROLOGICAL: Gross neurological examination did not reveal any focal deficits. SKIN: No rashes. Assessment and plan Chest pain, rule out acute coronary syndrome History of DVT history of hypertension History of hyperlipidemia history of parkinsonism Monitor vital signs Monitor CBC Monitor CMP Continue telemetry monitoring Trend troponin Ordered aspirin, Lipitor Ordered pharmacy dose Coumadin Resume Lopressor and lisinopril Ordered 2D echo Consult cardiology Labs and medication were reviewed.. Continue same treatment. Continue with symptomatic treatment. Resume home medication. Monitor labs and vitals. DVT and GI prophylaxis. Further recommendations as per clinical course of the patient Dictation was produced using [employer] dictation software. please excuse any grammatical, word or spelling errors. Past Medical History Past Medical History: Asthma, Heart Failure, CVA/TIA, Deep Vein Thrombosis (DVT), GERD/Reflux, Hypertension, Memory Impairment, Myocardial Infarction (NV), Musculoskeletal Disorder, Neurologic Disorder, Osteoarthritis (OA), Pulmonary Embolus (PE) Additional Past Medical History / Comment(s): Ulcerative colitis, diverticulitis, parkinson's disease, CVA which pt was unaware of having-showed on cat scan, several DVTs bilateral legs and pt states since she has had intermittent bilateral ankle edema, thrombophlebitis, PE-pt cannot recall laterallity, generalized arthritis, urinary leakage, UTIs, shingles x 2 Last Myocardial Infarction Date:: unknown History of Any Multi-Drug Resistant Organisms: ESBL Date of last positivie culture/infection: 07/09/21 ESBL-E.coli MDRO Source:: URINE ESBL Past Surgical History: Appendectomy, Cholecystectomy, Hysterectomy, Orthopedic Surgery, Tubal Ligation Additional Past Surgical History / Comment(s): L shoulder injury with surgery to repair, removals of DVTs bilateral legs, cataract removal/lens implants, colonos copies, hemorrohoids surgery Past Anesthesia/Blood Transfusion Reactions: Postoperative Nausea & Vomiting (PONV) Additional Past Anesthesia/Blood Transfusion Reaction / Comment(s): Pt received blood with hysterectomy without reaction. Past Psychological History: Anxiety Additional Psychological History / Comment(s): Pt resides at [facility]. Staff get her up into wheelchair. Smoking Status: Never smoker Past Alcohol Use History: None Reported Past Drug Use History: None Reported - Past Family History Father Family Medical History: Asthma, Cancer, COPD Additional Family Medical History / Comment(s): Gallbladder cancer Mother Family Medical History: Myocardial Infarction (NV) Additional Family Medical History / Comment(s): Mother of a NV at the age of 48 yrs. Sister(s) Family Medical History: Deep Vein Thrombosis (DVT) Additional Family Medical History / Comment(s): Sister of a blood clot at age 38 yrs-pt cannot recall specifics. Medications and Allergies Home Medications Medication Instructions Recorded Confirmed Type Carbidopa-Levodopa 25-100 mg 1 tab PO QID@05,,,07/30/19 01/27/25 History [Sinemet 25-100 mg] Carbidopa/Levodopa [Sinemet CR 1 tab PO HS@2100 10/15/19 01/27/25 History 50-200 mg] Atorvastatin [Lipitor] 40 mg PO HS 10/19/20 01/27/25 History Cholecalciferol [Vitamin D3 (25 50 mcg PO DAILY 10/19/20 01/27/25 History Mcg = 1000 Iu)] Nitroglycerin Sl Tabs [Nitrostat] 0.4 mg SL Q5M PRN 10/19/20 01/27/25 History Acetaminophen Tab [Tylenol] 650 mg PO Q4H PRN 10/27/21 01/27/25 History Warfarin [Coumadin] 2 mg PO SUTUWEFRSA 10/27/21 01/27/25 History lisinopriL [Zestril] 5 mg PO DAILY 11/04/22 01/27/25 History Lactulose 20 gm PO DAILY PRN #120 ml 11/06/22 01/27/25 Rx Lactulose 20 gm PO BID 01/27/25 01/27/25 History Metoprolol Tartrate [Lopressor] 12.5 mg PO BID 01/27/25 01/27/25 History Mirtazapine [Remeron] 30 mg PO HS 01/27/25 01/27/25 History Mylanta Double Strength 10 ml PO Q4H PRN 01/27/25 01/27/25 History [id number]/Ml Omeprazole 20 mg PO DAILY 01/27/25 01/27/25 History Ondansetron [Zofran] 4 mg PO Q8HR PRN 01/27/25 01/27/25 History Salonpas Pain Relieving 1 patch TRANSDERM HS 01/27/25 01/27/25 History Patch(Menthol-Methyl Salicylate(Liniments)) Sennosides 8.6 mg PO Q12H 01/27/25 01/27/25 History Solifenacin Succinate [Vesicare] 5 mg PO DAILY 01/27/25 01/27/25 History Warfarin [Coumadin] 1 mg PO MOTH 01/27/25 01/27/25 History traMADol HCl [Ultram] 50 mg PO Q6H PRN 01/27/25 01/27/25 History Allergies Allergy/AdvReac Type Severity Reaction Status Date / Time Influenza Virus Vaccines Allergy Swelling Verified 01/27/25 17:23 Penicillins Allergy Anaphylaxis Verified 01/27/25 17:23 Iodinated Contrast Media AdvReac Chest Pain Verified 01/27/25 17:23 [Iodinated Contrast- Oral and IV Dye] Physical Exam Vitals: Vital Signs Temp Pulse Pulse Resp BP BP Pulse Ox 01/28/25 07:00 97.6 F 58 L 16 116/58 97 01/28/25 00:28 97.4 F L 66 18 176/71 96 01/27/25 22:00 74 18 175/81 98 01/27/25 21:14 68 18 193/84 97 01/27/25 20:05 64 16 167/72 97 01/27/25 18:09 56 L 17 141/58 97 01/27/25 16:47 64 17 187/90 96 01/27/25 11:51 97.8 F 76 18 158/78 95 Intake and Output 01/27/25 01/28/25 01/28/25 22:59 06:59 14:59 Other: Voiding Method Toilet # Voids 1 Weight 56.699 kg Results CBC & Chem 7: 01/27/25 11:59 01/27/25 11:59 Labs: Abnormal Lab Results - Last 24 Hours (Table) 01/27/25 01/27/25 01/27/25 Range/Units 11:59 11:59 11:59 RBC 3.82 L (4.10-5.20) 10*6/uL Hct 36.3 L (37.2-46.3) % PT 20.4 H (10.0-12.5) sec INR 2.0 H (<1.2) BUN 29 H (7-17) mg/dL Glucose 109 H (74-99) mg/dL Magnesium 2.5 H (1.6-2.3) mg/dL Total Protein 6.1 L (6.3-8.2) g/dL // Range/Units 07:31 RBC (4.10-5.20) 10*6/uL Hct (37.2-46.3) % PT 24.7 H (10.0-12.5) sec INR 2.5 H (<1.2) BUN (7-17) mg/dL Glucose (74-99) mg/dL Magnesium (1.6-2.3) mg/dL Total Protein (6.3-8.2) g/dL Thrombosis Risk Factor Assmnt - Choose All That Apply Any of the Below Risk Factors Present?: Yes Each Factor Represents 1 point: Swollen legs (current) Other Risk Factors: Yes Each Risk Factor Represents 3 Points: Age 75 years or older, History of DVT/PE Thrombosis Risk Factor Assessment Total Risk Factor Score: 7 Thrombosis Risk Factor Assessment Level: High Risk
[2025-01-28] MEDS: LIDOCAINE 4% PATCH TOPICAL ONE (15:47)
[2025-01-28 15:48] VITALS: BP 153/64; PULSE 56; TEMP 98
--- NOTE | 2025-01-28 16:51 | P.DS ---
Providers Date of admission: 01/27/25 17:22 Expected date of discharge: 01/28/25 Attending physician: Sandro Higuera Consults: 01/27/25 17:20 Consult Physician Urgent Consulting Provider: [facility] Consult Reason/Comments: Chest pain Do you want consulting provider notified?: Yes, Notify in am Primary care physician: Jesus Cooney Hospital Course: Final diagnosis Chest pain, ruled out acute coronary syndrome per cardiology History of DVT maintained on Coumadin history of hypertension History of hyperlipidemia history of parkinsonism Discharge disposition Patient is being discharged in a stable condition with guarded prognosis to [facility]. Patient will follow-up with Dr. Cooney in the outpatient setting upon discharge. Patient is to continue with current medications and outpatient follow-up with cardiology as scheduled. Total time taken is greater than 35 minutes. Hospital course History of present illness; patient 84-year-old lady with past medical history significant for hyperlipidemia, parkinsonism, DVT presented the ER because of chest pain. Patient was all right when 3 hours prior to arrival she started having chest pain that was central location, pressure-like, sharp at times, radiating to the left arm, no aggravating or relieving factors associated with this chest pain.There was no complaint of orthopnea or PND. There was no complaint of shortness of breath at that time. There was no episode of diaphoresis during this episode of chest pain. Patient became concerned, patient received aspirin and sublingual nitro did help with the pain. Patient denies any palpitation. Denies any nausea, vomiting abdominal pain. Patient denies any complaint of dizziness. There is no complaint of headache. Because of the symptoms, patient came to the ER Initial lab work done in the ER showed WBC 5.54, hemoglobin 12.1, platelet count 188, sodium 141, potassium 4.1, BUN 29, creatinine 0.95, glucose 109, magnesium 2.5, troponin 0.012 EKG done in the ER showed heart rate of 65, no ST segment elevation or depression seen, no T-wave inversions seen. Chest x-ray done in the ER showed no acute pulmonary process Patient admitted to internal medicine service Patient has been evaluated by cardiology with no plans of intervention clearing the patient for discharge recommending outpatient follow-up. Patient to adi bowie on current medication regimen and has been cleared. Please refer to cardiology consultation note for further HPI. PHYSICAL EXAMINATION: GENERAL: The patient is alert and oriented x3, not in any acute distress. Well developed, well nourished. HEENT: Pupils are round and equally reacting to light. EOMI. No scleral icterus. No conjunctival pallor. Normocephalic, atraumatic. No pharyngeal erythema. No thyromegaly. CARDIOVASCULAR: S1 and S2 present. No murmurs, rubs, or gallops. PULMONARY: Chest is clear to auscultation, no wheezing or crackles. ABDOMEN: Soft, nontender, nondistended, normoactive bowel sounds. No palpable organomegaly. MUSCULOSKELETAL: No joint swelling or deformity. EXTREMITIES: No cyanosis, clubbing, or pedal edema. NEUROLOGICAL: Gross neurological examination did not reveal any focal deficits. SKIN: No rashes. Please refer to medication reconciliation sheet for a list of medications. The impression and plan of care has been dictated by Claribel Blackwell, Nurse Practitioner as directed. Dr. Guanaco Bermudez MD I have performed a history and examination and MDM of this patient, discussed the same with the dictator, and agree with the dictator's assessment and plan as written ,documented as a scribe. Based on total visit time, I have performed more than 50% of the visit. Patient Condition at Discharge: Stable Plan - Discharge Summary Discharge Rx Participant: No New Discharge Prescriptions: New Lidocaine 4% Patch 1 patch TOPICAL DAILY 7 Days #7 patch Continue Carbidopa-Levodopa 25-100 mg [Sinemet 25-100 mg] 1 tab PO QID@05,09,13,17 Carbidopa/Levodopa [Sinemet CR 50-200 mg] 1 tab PO HS@2100 Nitroglycerin Sl Tabs [Nitrostat] 0.4 mg SL Q5M PRN PRN Reason: Chest Pain Cholecalciferol [Vitamin D3 (25 Mcg = 1000 Iu)] 50 mcg PO DAILY Atorvastatin [Lipitor] 40 mg PO HS Warfarin [Coumadin] 2 mg PO SUTUWEFRSA lisinopriL [Zestril] 5 mg PO DAILY Warfarin [Coumadin] 1 mg PO MOTH Sennosides 8.6 mg PO Q12H Ondansetron [Zofran] 4 mg PO Q8HR PRN PRN Reason: Nausea And Vomiting Mirtazapine [Remeron] 30 mg PO HS Omeprazole 20 mg PO DAILY Mylanta Double Strength [id number]/Ml 10 ml PO Q4H PRN PRN Reason: Indigestion/heartburn/gas/ Acetaminophen Tab [Tylenol] 650 mg PO Q4H PRN PRN Reason: Pain Lactulose 20 gm PO DAILY PRN #120 ml PRN Reason: Constipation Solifenacin Succinate [Vesicare] 5 mg PO DAILY Salonpas Pain Relieving Patch(Menthol-Methyl Salicylate(Liniments)) 1 patch TRANSDERM HS Lactulose 20 gm PO BID Metoprolol Tartrate [Lopressor] 12.5 mg PO BID Changed traMADol HCl [Ultram] 50 mg PO Q6H PRN #4 tab PRN Reason: Pain Discharge Medication List Carbidopa-Levodopa 25-100 mg [Sinemet 25-100 mg] 1 tab PO QID@05,,,17 07/30/19 [History] Carbidopa/Levodopa [Sinemet CR 50-200 mg] 1 tab PO HS@2100 10/15/19 [History] Atorvastatin [Lipitor] 40 mg PO HS 10/19/20 [History] Cholecalciferol [Vitamin D3 (25 Mcg = 1000 Iu)] 50 mcg PO DAILY 10/19/20 [History] Nitroglycerin Sl Tabs [Nitrostat] 0.4 mg SL Q5M PRN 10/19/20 [History] Acetaminophen Tab [Tylenol] 650 mg PO Q4H PRN 10/27/21 [History] Warfarin [Coumadin] 2 mg PO SUTUWEFRSA 10/27/21 [History] lisinopriL [Zestril] 5 mg PO DAILY 11/04/22 [History] Lactulose 20 gm PO DAILY PRN #120 ml 11/06/22 [Rx] Lactulose 20 gm PO BID 01/27/25 [History] Metoprolol Tartrate [Lopressor] 12.5 mg PO BID 01/27/25 [History] Mirtazapine [Remeron] 30 mg PO HS 01/27/25 [History] Mylanta Double Strength [id number]/Ml 10 ml PO Q4H PRN 01/27/25 [History] Omeprazole 20 mg PO DAILY 01/27/25 [History] Ondansetron [Zofran] 4 mg PO Q8HR PRN 01/27/25 [History] Salonpas Pain Relieving Patch(Menthol-Methyl Salicylate(Liniments)) 1 patch TRANSDERM HS 01/27/25 [History] Sennosides 8.6 mg PO Q12H 01/27/25 [History] Solifenacin Succinate [Vesicare] 5 mg PO DAILY 01/27/25 [History] Warfarin [Coumadin] 1 mg PO MOTH 01/27/25 [History] Lidocaine 4% Patch 1 patch TOPICAL DAILY 7 Days #7 patch 01/28/25 [Rx] traMADol HCl [Ultram] 50 mg PO Q6H PRN #4 tab 01/28/25 [Rx] Follow up Appointment(s)/Referral(s): Jesus Cooney MD [Primary Care Provider] - 1-2 days Discharge Disposition: TRANSFER TO SNF/ECF
[2025-01-28] MEDS ORDERED: WARFARIN 1 MG TAB PO ONE (18:00)
[2025-01-28] MEDS ORDERED: WARFARIN 2 MG TAB PO SCH (19:45)
[2025-01-29 03:15] LABS: Chol/HDL Ratio 2.99 Ratio; LDL Cholesterol,Calculated 56.7 mg/dL (0.0-131.0); Magnesium 2.3 mg/dL (1.5-2.4)
[2025-01-29] MEDS ORDERED: FAMOTIDINE 20 MG TAB PO SCH (09:00)
== END 2025-01-28 16:48 ==
LOC: EC 11:44 → 6NMEDSUR 17:22
PROVIDERS: ADMIT Hospitalist; ATTEND Hospitalist
DX: R07.2 Precordial pain (principal); G20.A1 Parkinson's disease without dyskinesia, without mention of fluctuations; F02.84 Dementia in other diseases classified elsewhere, unspecified severity, with anxiety; K21.9 Gastro-esophageal reflux disease without esophagitis; I10 Essential (primary) hypertension; E78.5 Hyperlipidemia, unspecified; I25.2 Old myocardial infarction; Z86.711 Personal history of pulmonary embolism; Z86.718 Personal history of other venous thrombosis and embolism; Z86.73 Personal history of transient ischemic attack (TIA), and cerebral infarction without residual deficits; Z79.01 Long term (current) use of anticoagulants; Z79.899 Other long term (current) drug therapy; Z88.0 Allergy status to penicillin
CPT/HCPCS: 96374; 96375; 99285; 36415; 93005; 83880; 80061; 80053; 84443; 83735 ×2; 84484; 85025; 85610 ×2; 85730; 83036; 71046; G0378 ×2; J2405; J2270; J1171